=== PATIENT | male | born 1960 | race Caucasian/White ===

== ENCOUNTER 2016-11-03 22:46 | Emergency (ER) | payer BC ==
[2016-11-03 22:55] VITALS: TEMP 98.5
--- NOTE | 2016-11-03 23:27 | ED ---
General Adult HPI - General Chief complaint: Arrhythmia/Palpitations Stated complaint: palpitations; fluttering Time Seen by Provider: 11/03/16 23:11 Source: patient, RN notes reviewed, old records reviewed Mode of arrival: wheelchair Limitations: no limitations - History of Present Illness Initial comments: This is a 36-year-old male ER for reevaluation. This patient presents for evaluation of palpitations chest pain and diaphoresis. 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 Time patient was discharged home. Patient states symptoms have continued, [place] felt uneasy. Patient has history of asthma, hypertension and obesity. Nonsmoker. No prior heart attack. - Related Data Home Medications Medication Instructions Recorded Confirmed Albuterol Inhaler [Ventolin 1 - 2 puff INHALATION Q6HR PRN 02/20/15 02/20/15 Inhaler] Metoprolol Tartrate 1 tab PO DAILY 11/03/16 11/03/16 Allergies Allergy/AdvReac Type Severity Reaction Status Date / Time No Known Allergies Allergy Verified 08/23/14 18:07 Review of Systems ROS Statement: Those systems with pertinent positive or pertinent negative responses have been documented in the HPI. ROS Other: All systems not noted in ROS Statement are negative. Past Medical History Past Medical History: Asthma, Hypertension Additional Past Medical History / Comment(s): UMBILICAL HERNIA History of Any Multi-Drug Resistant Organisms: None Reported Past Surgical History: No Surgical Hx Reported Past Anesthesia/Blood Transfusion Reactions: No Reported Reaction Past Psychological History: No Psychological Hx Reported Smoking Status: Former smoker Past Alcohol Use History: None Reported Past Drug Use History: None Reported General Exam Limitations: no limitations General appearance: alert, in no apparent distress, anxious Head exam: Present: atraumatic, normocephalic, normal inspection Eye exam: Present: normal appearance, PERRL, EOMI. Absent: scleral icterus, conjunctival injection, periorbital swelling ENT exam: Present: normal exam, mucous membranes moist Neck exam: Present: normal inspection. Absent: tenderness, meningismus, lymphadenopathy Respiratory exam: Present: normal lung sounds bilaterally. Absent: respiratory distress, wheezes, rales, rhonchi, stridor Cardiovascular Exam: Present: normal rhythm, tachycardia, normal heart sounds. Absent: systolic murmur, diastolic murmur, rubs, gallop, clicks GI/Abdominal exam: Present: soft, normal bowel sounds. Absent: distended, tenderness, guarding, rebound, rigid Extremities exam: Present: normal inspection, full ROM, normal capillary refill. Absent: tenderness, pedal edema, joint swelling, calf tenderness Back exam: Present: normal inspection Neurological exam: Present: alert, oriented X3, CN II-XII intact Psychiatric exam: Present: normal affect, normal mood Skin exam: Present: warm, dry, intact, normal color. Absent: rash Course Vital Signs 11/03/16 11/04/16 22:52 03:36 Temperature 98.5 F Pulse Rate 107 H 88 Respiratory 20 18 Rate Blood Pressure 139/84 138/87 O2 Sat by Pulse 95 97 Oximetry - Reevaluation(s) Reevaluation #1: 11/04/16 00:03 Patient still palpitations heart racing slightly, feeling sweaty and shortness of breath EKG Findings - EKG Comments: EKG Findings:: EKG shows sinus tachycardia rate 13, HI 166, QRS or 2, QTc 442 Medical Decision Making - Medical Decision Making 50s RML ER for evaluation of heart palpitations and arrhythmia, tachycardia and chest pain. Patient be admitted under chest pain observation. - Lab Data Result diagrams: 11/03/16 23:30 11/03/16 23:30 Lab Results 11/03/16 11/03/16 11/03/16 Range/Units 23:30 23:30 23:30 WBC 7.7 (3.8-10.6) k/uL RBC 4.71 (4.30-5.90) m/uL Hgb 14.5 (13.0-17.5) gm/dL Hct 43.9 (39.0-53.0) % MCV 93.2 (80.0-100.0) fL MCH 30.8 (25.0-35.0) pg MCHC 33.1 (31.0-37.0) g/dL RDW 13.7 (11.5-15.5) % Plt Count 262 (150-450) k/uL Neutrophils % 62 % Lymphocytes % 24 % Monocytes % 8 % Eosinophils % 3 % Basophils % 1 % Neutrophils # 4.7 (1.3-7.7) k/uL Lymphocytes # 1.8 (1.0-4.8) k/uL Monocytes # 0.6 (0-1.0) k/uL Eosinophils # 0.2 (0-0.7) k/uL Basophils # 0.1 (0-0.2) k/uL PT (9.0-12.0) sec INR (<1.1) APTT (22.0-30.0) sec D-Dimer (<0.60) mg/L FEU Sodium 138 (137-145) mmol/L Potassium 4.1 (3.5-5.1) mmol/L Chloride 107 (98-107) mmol/L Carbon Dioxide 26 (22-30) mmol/L Anion Gap 5 mmol/L BUN 18 (9-20) mg/dL Creatinine 0.90 (0.66-1.25) mg/dL Est GFR (MDRD) Af Amer >60 (>60 ml/min/1.73 sqM) Est GFR (MDRD) Non-Af >60 (>60 ml/min/1.73 sqM) Glucose 129 H (74-99) mg/dL Calcium 8.9 (8.4-10.2) mg/dL Phosphorus 3.1 (2.5-4.5) mg/dL Magnesium 1.9 (1.6-2.3) mg/dL Total Bilirubin 0.5 (0.2-1.3) mg/dL AST 18 (17-59) U/L ALT 36 (21-72) U/L Alkaline Phosphatase 44 (38-126) U/L Total Creatine Kinase 146 (55-170) U/L CK-MB (CK-2) 1.2 (0.0-2.4) ng/mL CK-MB (CK-2) Rel Index 0.8 Troponin I <0.012 (0.000-0.034) ng/mL NT-Pro-B Natriuret Pep pg/mL Total Protein 6.5 (6.3-8.2) g/dL Albumin 3.8 (3.5-5.0) g/dL TSH 0.074 L (0.465-4.680) mIU/L Free T4 (0.78-2.19) ng/dL Free T3 pg/mL (2.8-5.3) pg/ml 03/11/17 03/11/17 03/12/17 Range/Units 23:30 23:30 03:55 WBC (3.8-10.6) k/uL RBC (4.30-5.90) m/uL Hgb (13.0-17.5) gm/dL Hct (39.0-53.0) % MCV (80.0-100.0) fL MCH (25.0-35.0) pg MCHC (31.0-37.0) g/dL RDW (11.5-15.5) % Plt Count (150-450) k/uL Neutrophils % % Lymphocytes % % Monocytes % % Eosinophils % % Basophils % % Neutrophils # (1.3-7.7) k/uL Lymphocytes # (1.0-4.8) k/uL Monocytes # (0-1.0) k/uL Eosinophils # (0-0.7) k/uL Basophils # (0-0.2) k/uL PT 9.8 (9.0-12.0) sec INR 1.0 (<1.1) APTT 22.8 (22.0-30.0) sec D-Dimer 0.54 (<0.60) mg/L FEU Sodium (137-145) mmol/L Potassium (3.5-5.1) mmol/L Chloride (98-107) mmol/L Carbon Dioxide (22-30) mmol/L Anion Gap mmol/L BUN (9-20) mg/dL Creatinine (0.66-1.25) mg/dL Est GFR (MDRD) Af Amer (>60 ml/min/1.73 sqM) Est GFR (MDRD) Non-Af (>60 ml/min/1.73 sqM) Glucose (74-99) mg/dL Calcium (8.4-10.2) mg/dL Phosphorus (2.5-4.5) mg/dL Magnesium (1.6-2.3) mg/dL Total Bilirubin (0.2-1.3) mg/dL AST (17-59) U/L ALT (21-72) U/L Alkaline Phosphatase (38-126) U/L Total Creatine Kinase (55-170) U/L CK-MB (CK-2) (0.0-2.4) ng/mL CK-MB (CK-2) Rel Index Troponin I (0.000-0.034) ng/mL NT-Pro-B Natriuret Pep 27 pg/mL Total Protein (6.3-8.2) g/dL Albumin (3.5-5.0) g/dL TSH (0.465-4.680) mIU/L Free T4 0.83 (0.78-2.19) ng/dL Free T3 pg/mL 4.1 (2.8-5.3) pg/ml 11/04/16 Range/Units 03:55 WBC (3.8-10.6) k/uL RBC (4.30-5.90) m/uL Hgb (13.0-17.5) gm/dL Hct (39.0-53.0) % MCV (80.0-100.0) fL MCH (25.0-35.0) pg MCHC (31.0-37.0) g/dL RDW (11.5-15.5) % Plt Count (150-450) k/uL Neutrophils % % Lymphocytes % % Monocytes % % Eosinophils % % Basophils % % Neutrophils # (1.3-7.7) k/uL Lymphocytes # (1.0-4.8) k/uL Monocytes # (0-1.0) k/uL Eosinophils # (0-0.7) k/uL Basophils # (0-0.2) k/uL PT (9.0-12.0) sec INR (<1.1) APTT (22.0-30.0) sec D-Dimer (<0.60) mg/L FEU Sodium (137-145) mmol/L Potassium (3.5-5.1) mmol/L Chloride (98-107) mmol/L Carbon Dioxide (22-30) mmol/L Anion Gap mmol/L BUN (9-20) mg/dL Creatinine (0.66-1.25) mg/dL Est GFR (MDRD) Af Amer (>60 ml/min/1.73 sqM) Est GFR (MDRD) Non-Af (>60 ml/min/1.73 sqM) Glucose (74-99) mg/dL Calcium (8.4-10.2) mg/dL Phosphorus (2.5-4.5) mg/dL Magnesium (1.6-2.3) mg/dL Total Bilirubin (0.2-1.3) mg/dL AST (17-59) U/L ALT (21-72) U/L Alkaline Phosphatase (38-126) U/L Total Creatine Kinase (55-170) U/L CK-MB (CK-2) (0.0-2.4) ng/mL CK-MB (CK-2) Rel Index Troponin I <0.012 (0.000-0.034) ng/mL NT-Pro-B Natriuret Pep pg/mL Total Protein (6.3-8.2) g/dL Albumin (3.5-5.0) g/dL TSH (0.465-4.680) mIU/L Free T4 (0.78-2.19) ng/dL Free T3 pg/mL (2.8-5.3) pg/ml - Radiology Data Radiology results: report reviewed (Chest X-rays negative for acute disease), image reviewed Disposition Clinical Impression: Tachycardia, Chest pain Disposition: HOME SELF-CARE Condition: Fair Instructions: Palpitations (ED) Referrals: Rodney Ferreira MD [Primary Care Provider] - 1-2 days
[2016-11-03 23:46] LABS: Basophils # (A) 0.1 k/uL (0-0.2); Basophils % (A) 1 %; CH 31.6; Eosinophils # (A) 0.2 k/uL (0-0.7); Eosinophils % (A) 3 %; HCT 43.9 % (39.0-53.0); HDW 2.53; HGB 14.5 gm/dL (13.0-17.5); Luc # (Auto) 0.24; Luc % (Auto) 3; Lymphocytes # (A) 1.8 k/uL (1.0-4.8); Lymphocytes % (A) 24 %; MCH 30.8 pg (25.0-35.0); MCHC 33.1 g/dL (31.0-37.0); MCV 93.2 fL (80.0-100.0); Monocytes # (A) 0.6 k/uL (0-1.0); Monocytes % (A) 8 %; Neutrophils # (A) 4.7 k/uL (1.3-7.7); Neutrophils % (A) 62 %; RBC 4.71 m/uL (4.30-5.90); RDW 13.7 % (11.5-15.5); WBC 7.7 k/uL (3.8-10.6); WBC (Perox) 7.83
[2016-11-03 23:57] LABS: ALT 36 U/L (21-72); AST 18 U/L (17-59); Alkaline Phosphatase 44 U/L (38-126); Anion Gap 5 mmol/L; Blood Urea Nitrogen 18 mg/dL (9-20); Calcium 8.9 mg/dL (8.4-10.2); Carbon Dioxide 26 mmol/L (22-30); Chloride 107 mmol/L (98-107); Glucose 129 mg/dL (74-99); Magnesium 1.9 mg/dL (1.6-2.3); Non-African American GFR(MDRD) >60 (>60 ml/min/1.73 sqM); Phosphorous 3.1 mg/dL (2.5-4.5); Potassium 4.1 mmol/L (3.5-5.1); Sodium 138 mmol/L (137-145); Total Bilirubin 0.5 mg/dL (0.2-1.3); Total Protein 6.5 g/dL (6.3-8.2)
[2016-11-04 00:08] LABS: Creatine Kinase 146 U/L (55-170)
[2016-11-04 00:10] LABS: Partial Thromboplastin Time 22.8 sec (22.0-30.0); Prothrombin Time 9.8 sec (9.0-12.0)
--- NOTE | 2016-11-04 00:10 | XR ---
Exam: FILM CXR 11/03/16 at 2343 hrs. Chest PA and lateral views INDICATION: Weakness COMPARISON: Chest radiograph exam 02/20/15 FINDINGS: There is mild low lung volumes. The cardiomediastinal silhouette is within normal limits. Lungs are clear. No pleural effusions. Bony elements are within normal limits for age. No acute osseous abnormality. IMPRESSION: No acute cardiopulmonary disease. Lungs are clear. Heart size normal.
[2016-11-04] MEDS ORDERED: RX INFO: IV CONTRAST WAS GIVEN 1 EACH MISC MISCELLANE PRN (00:13)
[2016-11-04 00:21] LABS: Creatine Kinase MB 1.2 ng/mL (0.0-2.4); Troponin I <0.012 ng/mL (0.000-0.034)
--- NOTE | 2016-11-04 03:06 | CT ---
Exam: CTA CHEST INDICATION: Pain TECHNIQUE: Multiple, contiguous 2 mm axial cuts of the chest are obtained following the administration of IV contrast. High resolution axial image as well as, sagittal and coronal reformatted images are available. COMPARISON: Chest radiograph 11/03/16 FINDINGS: The study is limited due to suboptimal opacification of the pulmonary arteries. More dense contrast opacification of the pulmonary veins and thoracic aorta is noted. Evaluation of mid and distal segmental and subsegmental pulmonary arteries is markedly limited essentially nondiagnostic for these vessels. No central or proximal segmental pulmonary embolism identified. Thoracic aorta normal caliber without dissection. In the right lower lobe anterior laterally there is a 8mm noncalcified nodule. Remaining lung babb are clear. No acute infiltrate. No effusion or pneumothorax. No adenopathy. Heart size normal. No pericardial effusion. Mild endplate degenerative osteophyte formation of the mid to lower thoracic spine. No acute osseous abnormality. Adrenal glands are unremarkable. Visualized upper abdominal structures are unremarkable. IMPRESSION: 1. The study is limited due to suboptimal opacification of the pulmonary arteries. Evaluation of mid and distal segmental and subsegmental pulmonary arteries is markedly limited essentially nondiagnostic for these vessels. 2. No central or proximal segmental pulmonary embolism identified. 3. 8mm noncalcified nodule right lower lobe. Follow-up examination in 3 months suggested. 4. Lungs are clear of infiltrate. No effusion or pneumothorax.
[2016-11-04 04:39] VITALS: RESP 18
[2016-11-04 06:01] VITALS: BP 154/99; PULSE 75
== END 2016-11-04 06:00 | disposition home or self-care (01) ==
LOC: EC 22:46 → SUPCPDRO 22:46 → EC 11-04 06:00
DX: R00.2 Palpitations (principal); R00.0 Tachycardia, unspecified; R07.9 Chest pain, unspecified; I10 Essential (primary) hypertension; Z87.891 Personal history of nicotine dependence; Z79.899 Other long term (current) drug therapy
CPT/HCPCS: 36415; 71020; 71275; 80053; 82550; 82553; 83735; 83880; 84100; 84439; 84443; 84481; 84484; 85025; 85379; 85610; 85730; 93005; 99285

== ENCOUNTER 2018-05-18 12:18 | Observation (INO) | payer BC ==
[2018-05-18] MEDS ORDERED: ALBUTEROL NEBULIZED 2.5 MG/3 ML INHALATION STA (12:34)
[2018-05-18] MEDS ORDERED: IPRATROPIUM 0.5 MG/2.5 ML NEBU INHALATION STA (12:34)
[2018-05-18] MEDS ORDERED: methylPREDNISolone SOD SUCCI 125 MG/2 ML VIAL IV STA (12:34)
--- NOTE | 2018-05-18 12:37 | ED ---
General Adult HPI - General Chief complaint: Shortness of Breath Stated complaint: ALEXUS Time Seen by Provider: 05/18/18 12:26 Source: patient, RN notes reviewed, old records reviewed Mode of arrival: wheelchair Limitations: no limitations - History of Present Illness Initial comments: 57-year-old male history of asthma presenting with cough and dyspnea. Patient' s symptoms have been present for approximately one week. He was admitted earlier this week at an outside hospital for asthma exacerbation. Symptoms have failed to improve. Denies fever or chills. Denies central chest pain. Denies lower extremity pain or swelling. Denies abdominal pain nausea vomiting. Symptoms are consistent with previous asthma exacerbation. No formal diagnosis COPD, he did smoke for a period of time however he has not smoking many years. - Related Data Home Medications Medication Instructions Recorded Confirmed Albuterol Sulfate [Proair Hfa] 1 - 2 puff INHALATION RT-Q6H PRN 05/18/18 Doxycycline Monohydrate [Monodox] 100 mg PO BID 05/18/18 05/18/18 Lisinopril-Hctz 20-25 mg 1 tab PO DAILY 05/18/18 05/18/18 [Zestoretic 20-25] Loratadine [Claritin] 10 mg PO DAILY 05/18/18 05/18/18 Montelukast Sodium [Singulair] 10 mg PO DAILY 05/18/18 05/18/18 guaiFENesin-DM 600/30MG [Mucinex 1 tab PO BID 05/18/18 05/18/18 Dm] predniSONE 60 mg PO DAILY 05/18/18 05/18/18 Allergies Allergy/AdvReac Type Severity Reaction Status Date / Time No Known Allergies Allergy Verified 05/18/18 14:26 Review of Systems ROS Statement: Those systems with pertinent positive or pertinent negative responses have been documented in the HPI. ROS Other: All systems not noted in ROS Statement are negative. Past Medical History Past Medical History: Asthma, Hypertension Additional Past Medical History / Comment(s): UMBILICAL HERNIA History of Any Multi-Drug Resistant Organisms: None Reported Past Surgical History: No Surgical Hx Reported Past Anesthesia/Blood Transfusion Reactions: No Reported Reaction Past Psychological History: No Psychological Hx Reported Smoking Status: Former smoker Past Alcohol Use History: None Reported Past Drug Use History: None Reported General Exam Limitations: no limitations General appearance: alert, in no apparent distress Head exam: Present: atraumatic, normocephalic Eye exam: Present: normal appearance, PERRL ENT exam: Present: normal exam Neck exam: Present: normal inspection. Absent: tenderness, meningismus Respiratory exam: Present: respiratory distress, wheezes (mild), decreased breath sounds, prolonged expiratory Cardiovascular Exam: Present: regular rate, normal rhythm GI/Abdominal exam: Present: soft. Absent: distended, tenderness, guarding Extremities exam: Present: normal inspection, normal capillary refill. Absent: pedal edema, calf tenderness Neurological exam: Present: alert, oriented X3, CN II-XII intact. Absent: motor sensory deficit Psychiatric exam: Present: normal affect, normal mood Skin exam: Present: warm, dry, intact. Absent: cyanosis, diaphoretic Course Vital Signs 05/18/18 05/18/18 05/18/18 12:22 13:02 13:26 Temperature 98.5 F Pulse Rate 94 92 98 Respiratory 18 Rate Blood Pressure 155/94 O2 Sat by Pulse 95 Oximetry 05/18/18 13:42 Temperature 98.6 F Pulse Rate 95 Respiratory 20 Rate Blood Pressure 142/81 O2 Sat by Pulse 97 Oximetry EKG Findings - EKG Comments: EKG Findings:: EKG: Normal sinus rhythm, rate of 91, RI interval 160, QRS duration 108, QTC 374, QTC [address] segment changes Medical Decision Making - Medical Decision Making 57-year-old male history of asthma presenting with cough and dyspnea. Patient' s has moderate respiratory distress on initial evaluation, he has end expiratory wheezing throughout bilateral lung babb. Given albuterol, Atrovent , and steroids in the emergency department. Chest x-ray obtained negative for focal pneumonia, normal CBC and CMP, troponin and BNP are negative. On reevaluation his breathing is improved however he will has persistent conversational dyspnea and wheezing throughout. He will be kept in observation for continued IV steroids, albuterol and Atrovent, and pulmonology consultation. - Lab Data Result diagrams: 05/18/18 12:50 05/18/18 12:50 Lab Results 05/18/18 05/18/18 05/18/18 Range/Units 12:50 12:50 12:50 WBC 11.6 H (3.8-10.6) k/uL RBC 4.90 (4.30-5.90) m/uL Hgb 15.0 (13.0-17.5) gm/dL Hct 46.6 (39.0-53.0) % MCV 95.1 (80.0-100.0) fL MCH 30.5 (25.0-35.0) pg MCHC 32.1 (31.0-37.0) g/dL RDW 13.1 (11.5-15.5) % Plt Count 288 (150-450) k/uL Neutrophils % 71 % Lymphocytes % 21 % Monocytes % 5 % Eosinophils % 2 % Basophils % 0 % Neutrophils # 8.2 H (1.3-7.7) k/uL Lymphocytes # 2.4 (1.0-4.8) k/uL Monocytes # 0.6 (0-1.0) k/uL Eosinophils # 0.3 (0-0.7) k/uL Basophils # 0.0 (0-0.2) k/uL PT (9.0-12.0) sec INR (<1.2) APTT (22.0-30.0) sec Sodium 138 (137-145) mmol/L Potassium 3.7 (3.5-5.1) mmol/L Chloride 104 (98-107) mmol/L Carbon Dioxide 26 (22-30) mmol/L Anion Gap 8 mmol/L BUN 20 (9-20) mg/dL Creatinine 0.83 (0.66-1.25) mg/dL Est GFR (CKD-EPI)AfAm >90 (>60 ml/min/1.73 sqM) Est GFR (CKD-EPI)NonAf >90 (>60 ml/min/1.73 sqM) Glucose 119 H (74-99) mg/dL Calcium 8.8 (8.4-10.2) mg/dL Magnesium 2.0 (1.6-2.3) mg/dL Total Bilirubin 0.6 (0.2-1.3) mg/dL AST 19 (17-59) U/L ALT 20 L (21-72) U/L Alkaline Phosphatase 50 (38-126) U/L Total Creatine Kinase 83 (55-170) U/L CK-MB (CK-2) 1.5 (0.0-2.4) ng/mL CK-MB (CK-2) Rel Index 1.8 Troponin I <0.012 (0.000-0.034) ng/mL NT-Pro-B Natriuret Pep pg/mL Total Protein 6.2 L (6.3-8.2) g/dL Albumin 3.5 (3.5-5.0) g/dL 05/18/18 05/18/18 Range/Units 12:50 12:50 WBC (3.8-10.6) k/uL RBC (4.30-5.90) m/uL Hgb (13.0-17.5) gm/dL Hct (39.0-53.0) % MCV (80.0-100.0) fL MCH (25.0-35.0) pg MCHC (31.0-37.0) g/dL RDW (11.5-15.5) % Plt Count (150-450) k/uL Neutrophils % % Lymphocytes % % Monocytes % % Eosinophils % % Basophils % % Neutrophils # (1.3-7.7) k/uL Lymphocytes # (1.0-4.8) k/uL Monocytes # (0-1.0) k/uL Eosinophils # (0-0.7) k/uL Basophils # (0-0.2) k/uL PT 9.7 (9.0-12.0) sec INR 1.0 (<1.2) APTT 21.0 L (22.0-30.0) sec Sodium (137-145) mmol/L Potassium (3.5-5.1) mmol/L Chloride (98-107) mmol/L Carbon Dioxide (22-30) mmol/L Anion Gap mmol/L BUN (9-20) mg/dL Creatinine (0.66-1.25) mg/dL Est GFR (CKD-EPI)AfAm (>60 ml/min/1.73 sqM) Est GFR (CKD-EPI)NonAf (>60 ml/min/1.73 sqM) Glucose (74-99) mg/dL Calcium (8.4-10.2) mg/dL Magnesium (1.6-2.3) mg/dL Total Bilirubin (0.2-1.3) mg/dL AST (17-59) U/L ALT (21-72) U/L Alkaline Phosphatase (38-126) U/L Total Creatine Kinase (55-170) U/L CK-MB (CK-2) (0.0-2.4) ng/mL CK-MB (CK-2) Rel Index Troponin I (0.000-0.034) ng/mL NT-Pro-B Natriuret Pep 179 pg/mL Total Protein (6.3-8.2) g/dL Albumin (3.5-5.0) g/dL Disposition Clinical Impression: Asthma with exacerbation Disposition: ADMITTED IP TO THIS [facility] Condition: Stable Is patient prescribed a controlled substance at d/c from ED?: No Referrals: Rodney Ferreira MD [Primary Care Provider] - 1-2 days Decision to Admit Reason: Admit from EC Decision Date: 05/18/18 Decision Time: 14:45
[2018-05-18 13:03] LABS: Basophils % (A) 0 %; Eosinophils # (A) 0.3 k/uL (0-0.7); Eosinophils % (A) 2 %; HCT 46.6 % (39.0-53.0); Lymphocytes # (A) 2.4 k/uL (1.0-4.8); Lymphocytes % (A) 21 %; MCH 30.5 pg (25.0-35.0); MCHC 32.1 g/dL (31.0-37.0); MCV 95.1 fL (80.0-100.0); Mean Platelet Volume 6.1; Monocytes # (A) 0.6 k/uL (0-1.0); Monocytes % (A) 5 %; Neutrophils # (A) 8.2 k/uL (1.3-7.7); Neutrophils % (A) 71 %; Platelet Count 288 k/uL (150-450); RDW 13.1 % (11.5-15.5); WBC 11.6 k/uL (3.8-10.6)
[2018-05-18 13:12] LABS: ALT 20 U/L (21-72); AST 19 U/L (17-59); Albumin 3.5 g/dL (3.5-5.0); Alkaline Phosphatase 50 U/L (38-126); Anion Gap 8 mmol/L; Blood Urea Nitrogen 20 mg/dL (9-20); Calcium 8.8 mg/dL (8.4-10.2); Carbon Dioxide 26 mmol/L (22-30); Chloride 104 mmol/L (98-107); Glucose 119 mg/dL (74-99); Potassium 3.7 mmol/L (3.5-5.1); Sodium 138 mmol/L (137-145); Total Bilirubin 0.6 mg/dL (0.2-1.3); Total Protein 6.2 g/dL (6.3-8.2)
[2018-05-18 13:18] LABS: Prothrombin Time 9.7 sec (9.0-12.0)
[2018-05-18 13:23] LABS: Creatine Kinase 83 U/L (55-170)
[2018-05-18 13:36] LABS: Creatine Kinase MB 1.5 ng/mL (0.0-2.4); Troponin I <0.012 ng/mL (0.000-0.034)
--- NOTE | 2018-05-18 14:02 | XR ---
EXAMINATION TYPE: XR chest 2V DATE OF EXAM: 05/18/2018 HISTORY: difficulty breathing. REFERENCE: Previous study dated 11/03/2016. FINDINGS: Lung volumes are prominent. The lungs are clear. Pleural spaces are clear. The heart is not enlarged. IMPRESSION: CORRELATE FOR COPD.
[2018-05-18] MEDS: IPRATROPIUM-ALBUTEROL 3 ML NEB INHALATION SCH ×2 (15:27→19:51)
[2018-05-18 15:56] VITALS: BMI 47.0
[2018-05-18 17:00] LABS: Glucose,Whole Blood 194 mg/dL (75-99)
[2018-05-18] MEDS: INSULIN ASPART 100 UNIT/ML 1 ML 10 ML VIAL SQ SCH ×2 (17:29→20:28)
[2018-05-18] MEDS: methylPREDNISolone SOD SUCCI 125 MG/2 ML VIAL IV SCH ×2 (17:30→20:28)
[2018-05-18 20:22] LABS: Glucose,Whole Blood 186 mg/dL (75-99)
--- NOTE | 2018-05-18 23:21 | CONS ---
CONSULTATION Joni Brown is a 57-year-old male with a history of severe asthma, who presented to [facility] with increasing shortness of breath. He had recently been admitted to [facility] and discharged yesterday. He went home and started to become more short of breath. He was seen in the ER at [facility] and improved after conservative care. Troponins were done which were negative at the time, and his breathing improved. He subsequently started to worsen after he was discharged and came in to [facility]. He does have a small dog at home that apparently sheds small balls of fur and has intermittently had a dog with him for the last 8 years. He denies any fever, chills or rigors. He has no chest pain at this time. PAST MEDICAL HISTORY: Positive for severe asthma, history of possible COPD, history of obesity, umbilical hernia. SOCIAL HISTORY: Patient has a dog at home that does shed. He works in the [employer] industry and is a former smoker. FAMILY HISTORY: Noncontributory. REVIEW OF SYMPTOMS: Review of systems as per history of present illness and past medical history. PAST HISTORY MEDICATIONS: Prior to admission for prednisone, guaifenesin with dextromethorphan, montelukast, Claritin, Zestoretic, doxycycline, albuterol HFA. PHYSICAL EXAMINATION: Respiratory rate is 22, pulse rate of 117, O2 sat on 2 L by nasal cannula is 92%. HEENT: Reveals pupils are equal. No jugular venous distention. Chest with decreased breath sounds. Prolonged expiration. There is expiratory wheeze on forced expiration. Cardiovascular system reveals an S1, S2. ABDOMEN: Soft. There is no pedal edema. LABS: Reveal a white count of 11.6, hemoglobin of 15, sodium 138, potassium 3.7, chloride 104, bicarb 26, BUN 20, creatinine 0.83, glucose of 194. Chest x-ray shows no clear infiltrate. IMPRESSION: At this time: 1. Severe asthma with acute exacerbation. 2. Chronic obstructive pulmonary disease. 3. Elevated blood sugars in part due to steroids, possible diabetes mellitus. 4. Obesity. 5. Possible obstructive sleep apnea. At this point in time, from a pulmonary standpoint, keep him on GI and DVT prophylaxis. Keep him on montelukast, start inhaled steroids to his regimen. Keep him on IV steroids. Increase his activity level. Continue bronchodilators. Depending on how he does, we shall make further changes to his care. Hopefully, he will only have a short stay at the hospital and may have worsened because of exposure to his dog. He was counseled regarding his condition and this approach and has a fair understanding of our recommendations. I would like to thank you for allowing me to participate in his care. KRISTINE / BREONNA: [id number] /
[2018-05-18] MEDS: HEPARIN SODIUM,PORCINE 5,000 UNIT/ML 1 ML VIAL SQ SCH (23:59)
[2018-05-18] MEDS: FAMOTIDINE 20 MG TAB PO SCH (23:59)
[2018-05-19] MEDS ORDERED: LISINOPRIL-HCTZ 20-25 MG 1 EACH TAB PO SCH ×4 (00:09→21:00)
[2018-05-19] MEDS: LORATADINE 10 MG TAB PO SCH ×2 (00:35→20:04)
[2018-05-19] MEDS: MONTELUKAST 10 MG TAB PO SCH ×2 (00:35→20:04)
[2018-05-19] MEDS: methylPREDNISolone SOD SUCCI 125 MG/2 ML VIAL IV SCH (06:11)
[2018-05-19 07:33] LABS: Glucose,Whole Blood 155 mg/dL (75-99)
[2018-05-19] MEDS: INSULIN ASPART 100 UNIT/ML 1 ML 10 ML VIAL SQ SCH ×4 (07:36→22:06)
[2018-05-19] MEDS: FAMOTIDINE 20 MG TAB PO SCH ×2 (07:36→20:03)
[2018-05-19] MEDS: HEPARIN SODIUM,PORCINE 5,000 UNIT/ML 1 ML VIAL SQ SCH ×2 (07:36→20:03)
[2018-05-19] MEDS: IPRATROPIUM-ALBUTEROL 3 ML NEB INHALATION SCH ×4 (08:50→20:29)
[2018-05-19] MEDS: BUDESONIDE 0.5 MG/2 ML NEBU INHALATION SCH ×2 (08:50→20:29)
[2018-05-19] MEDS ORDERED: MONTELUKAST 10 MG TAB PO SCH (09:00)
[2018-05-19] MEDS ORDERED: LORATADINE 10 MG TAB PO SCH (09:00)
--- NOTE | 2018-05-19 10:43 | P.PN ---
<Donald Ferrerley E - Last Filed: 05/19/18 10:34> Subjective Progress Note Date: 05/19/18 HPI: Joni Brown is a 57-year-old male with a history of severe asthma, who presented to the [facility] with increasing shortness of breath. He had recently been admitted to [facility] and discharged yesterday. He will home and started to become more short of breath. He was seen in the ER at [facility] in improved after conservative care. Troponins were done which were negative at that time and his breathing improved. He subsequently started to worsen after discharge and he can to [facility]. He does have a small dog at home that apparently showed small positive for and has intermittently had a dog with him for the last 8 years. He denies any fever or chills or rigors. He has no chest pain at this time. Interval history: 05/19/2018patient is being seen examined and evaluated today on rounds. He is resting up in bed on 2 L of supplemental oxygen via nasal cannula. The patient states that he did have some changes in his home environment the day before he went to [facility] for his first admission. The patient states he had some use carpet installed into his house prior to starting his exacerbating symptoms. He thinks when he went home after being discharged the first time that having the second exposure to the use carpet that was installed is what made him go back into exacerbation and come back to the hospital. The patient states he is having that carpet removed out of his house today. He has been responding well to the steroids. He feels his breathing is improved today. Continues with his breathing treatments. He is afebrile, denies any further complaints. Objective - Vital Signs Vital signs: Vital Signs Temp 99.0 F 05/19/18 07:00 Pulse 100 05/19/18 09:04 Resp 22 05/19/18 07:00 BP 152/91 05/19/18 07:00 Pulse Ox 96 05/19/18 07:00 Intake & Output 05/18/18 05/19/18 05/19/18 18:59 06:59 18:59 Weight 144.5 kg Other: # Voids 1 1 - Exam GENERAL EXAM: Alert, active, comfortable in no apparent distress. Morbidly obese HEAD: Normocephalic. EYES: Normal reaction of pupils, equal size. NOSE: Clear with pink turbinates. THROAT: No erythema or exudates. NECK: No masses, no JVD. CHEST: No chest wall deformity. LUNGS: Equal air entry with some decreased breath sounds at the bases. He does have prolonged expiration and wheezes on forced expiration. CVS: S1 and S2 normal with no audible mumurs, regular rhythm. ABDOMEN: No hepatosplenomegaly, normal bowel sounds, no guarding or rigidity. EXTREMITIES: No edema noted, pedal pulses palpable. CENTRAL NERVOUS SYSTEM: No focal deficits, tone is normal in all 4 extremities. - Labs CBC & Chem 7: 05/18/18 12:50 05/18/18 12:50 Labs: Abnormal Lab Results - Last 24 Hours (Table) 05/18/18 05/18/18 05/18/18 Range/Units 12:50 12:50 12:50 WBC 11.6 H (3.8-10.6) k/uL Neutrophils # 8.2 H (1.3-7.7) k/uL APTT 21.0 L (22.0-30.0) sec Glucose 119 H (74-99) mg/dL POC Glucose (mg/dL) (75-99) mg/dL ALT 20 L (21-72) U/L Total Protein 6.2 L (6.3-8.2) g/dL 05/18/18 05/18/18 05/19/18 Range/Units 16:58 20:20 07:28 WBC (3.8-10.6) k/uL Neutrophils # (1.3-7.7) k/uL APTT (22.0-30.0) sec Glucose (74-99) mg/dL POC Glucose (mg/dL) 194 H 186 H 155 H (75-99) mg/dL ALT (21-72) U/L Total Protein (6.3-8.2) g/dL Assessment and Plan Assessment: Assessment Acute exacerbation of chronic persistent severe asthma COPD Hyperglycemia related to steroid use and no possible diabetes mellitus Morbid obesity Possible obstructive sleep apnea Plan Medications have been reviewed and will be continued as ordered. Continue with steroid taper Continue with pulmonary hygiene, coughing and deep breathing exercises, and supportive care. Supplemental oxygen to maintain oxygen saturations of 92% or better. Continue nebulizer treatments. GI and DVT prophylaxis. Increase activity as tolerated Patient will be having the used carpet removed from his house as it is a new exposure and he feels this is causing his recent exacerbations Patient has been advised on multiple times to obtain an outpatient PFT as well as an outpatient sleep study. This patient has a poor follow-up history in the outpatient setting when he comes to pulmonary, he is known to not show up to his appointments post hospitalizations. We will continue to monitor labs/results and adjust treatment as necessary. Further recommendations pending. I performed an examination of the patient and discussed their management with the nurse practitioner. I have reviewed the nurse practitioner's note and agree with the documented findings and plan of care. <Roseline Lee - Last Filed: 05/19/18 14:04> Objective - Vital Signs Vital signs: Vital Signs Temp 99.0 F 05/19/18 07:00 Pulse 100 05/19/18 09:04 Resp 22 05/19/18 07:00 BP 152/91 05/19/18 07:00 Pulse Ox 96 05/19/18 11:35 Intake & Output 05/18/18 05/19/18 05/19/18 18:59 06:59 18:59 Weight 144.5 kg Other: # Voids 1 1 - Labs CBC & Chem 7: 05/18/18 12:50 05/18/18 12:50 Labs: Abnormal Lab Results - Last 24 Hours (Table) 05/18/18 05/18/18 05/18/18 Range/Units 12:50 16:58 20:20 POC Glucose (mg/dL) 194 H 186 H (75-99) mg/dL Hemoglobin A1c 6.8 H (4.0-6.0) % 05/19/18 05/19/18 Range/Units 07:28 12:29 POC Glucose (mg/dL) 155 H 135 H (75-99) mg/dL Hemoglobin A1c (4.0-6.0) % Assessment and Plan Assessment: Patient seen and examined. Con tinue Pulmicort, Duonebs, steroid taper, singulair, claritin. Allergen avoidance. Outpatient PFT and PSG. ~Roseline Lee DO
[2018-05-19 11:04] LABS: Hemoglobin A1C 6.8 % (4.0-6.0)
--- NOTE | 2018-05-19 12:21 | P.HPIM ---
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 She has underlying history of diabetes mellitus type 2, moderate persistent asthma, was recently discharged from [facility] after a bout of asthma exacerbation. He was doing well Saturday, discharged on 922 from [facility]. He can planed of having shortness of breath after they have staying at home, apparently there is a new carpet that the son had brought in from a car dealership show this Saturday thereafter patient has increasing shortness of breath despite nebulizer use of albuterol and steroid inhaler. He has a dog for which she had for the past 8 years, no new farm exposure. He was also evaluated with negative troponins and normal EKG during his last admission at [facility]. Patient is on prednisone on discharge, Singulair nebulizer albuterol and steroid inhalers, Doxycycline. Patient denies any new leg swelling, no hemoptysis no fever no chest pain no pleurisy.. Sleep study is anticipated to be done as an outpatient, still needs to be scheduled. Emergency room EKG shows normal sinus rhythm and normal ST-T wave changes heart rate of 91 sinus chest x-ray shows prominent lung volume, no infiltrate, no pleural effusion no cardiomegaly correlated for COPD. Patient was admitted for asthma exacerbation triggered by carpet exposure, consult to Dr. Bustillos/Rikki Griffith pulmonary Review of Systems Constitutional: Reports as per HPI, Denies anorexia, Denies chills, Denies chronic headaches, Denies chronic pain, Denies daytime sleepiness, Denies fatigue, Denies fever, Denies lethargy, Denies malaise, Denies night sweats, Denies poor appetite, Denies sweats, Denies weakness, Denies weight gain, Denies weight loss Ears, nose, mouth and throat: Reports as per HPI, Denies ant. neck pain, Denies bleeding gums, Denies dental pain, Denies dysphagia, Denies epistaxis, Denies headache, Denies hoarseness, Denies mouth pain, Denies nasal congestion, Denies nasal discharge, Denies neck fullness/pressure, Denies neck lump, Denies nose pain, Denies odynophagia, Denies post-nasal drip, Denies sinus pain, Denies sinus pressure, Denies swelling in mouth, Denies swelling in throat, Denies sore throat, Denies vertigo, Denies voice changes Cardiovascular: Reports as per HPI, Reports dyspnea on exertion, Reports shortness of breath, Denies chest pain, Denies claudication, Denies decreased exercise tolerance, Denies edema, Denies high blood pressure, Denies irregular heart beat, Denies leg edema, Denies lightheadedness, Denies orthopnea, Denies palpitations, Denies paroxysmal nocturnal dyspnea, Denies phlebitis, Denies rapid heart beat, Denies syncope Respiratory: Reports as per HPI, Reports cough, Reports dyspnea Gastrointestinal: Reports as per HPI, Denies abdominal pain, Denies belching, Denies bloating, Denies BRBPR, Denies change in bowel habits, Denies coffee ground emesis, Denies constipation, Denies diarrhea, Denies dyspepsia, Denies early satiety, Denies excessive gas, Denies heartburn, Denies hematemesis, Denies hematochezia, Denies indigestion, Denies jaundice, Denies lactose intolerance, Denies loss of appetite, Denies melena, Denies nausea, Denies vomiting Genitourinary: Reports as per HPI Musculoskeletal: Reports as per HPI Integumentary: Reports as per HPI, Denies acne, Denies boils, Denies brittle nails, Denies change in hair/nails, Denies color changes, Denies darkening of skin, Denies depigmentation, Denies dryness, Denies foot/leg ulcers, Denies growths, Denies hirsutism, Denies lesions, Denies onychomycosis, Denies pruritus , Denies rash, Denies sores, Denies striae, Denies unusual bruising, Denies wounds Neurological: Reports as per HPI, Denies aphasia, Denies ataxia, Denies balance difficulties, Denies burning pain, Denies change in mentation, Denies change in smell/taste, Denies change in speech, Denies confusion, Denies convulsions, Denies double vision, Denies gait dysfunction, Denies head injury, Denies headaches, Denies hearing difficulties, Denies lack of coordination, Denies loss of vision, Denies memory loss, Denies migraines, Denies motor disturbance, Denies numbness, Denies paralysis, Denies paresthesias, Denies seizures, Denies sensory deficit, Denies spasticity, Denies syncope, Denies tic, Denies tingling , Denies transient paralysis, Denies tremors, Denies vertigo, Denies weakness, Denies visual changes Psychiatric: Reports as per HPI, Reports sleep disturbances, Denies anhedonia, Denies anxiety, Denies anxiety attacks, Denies change in appetite, Denies change in libido, Denies change in sleep habits, Denies confusion, Denies depression, Denies difficulty concentrating, Denies disorientation, Denies hallucinations, Denies hopelessness, Denies hypersomnia, Denies insomnia, Denies irritability, Denies memory loss, Denies mood swings, Denies paranoia, Denies sadness/tearfulness, Denies suicidal ideation Endocrine: Reports as per HPI, Denies cold intolerance, Denies deepening of the voice, Denies excessive sweating, Denies excessive thirst, Denies fatigue, Denies flushing, Denies heat intolerance, Denies high blood sugars, Denies increase in ring/shoe/hat size, Denies low blood sugars, Denies nocturia, Denies palpitations, Denies polydipsia, Denies polyphagia, Denies polyuria, Denies proptosis, Denies recent glucocorticoid use, Denies thyroid mass, Denies weight change Hematologic/Lymphatic: Reports as per HPI, Denies easy bleeding, Denies easy bruising, Denies lymphadenopathy, Denies lymphedema, Denies thrombophilia Allergic/Immunologic: Reports as per HPI, Denies allergic rhinitis, Denies anaphylaxis, Denies angioedema, Denies gluten intolerance, Denies persistent infections, Denies seasonal allergies, Denies urticaria, Denies wheezing Past Medical History Past Medical History: Asthma, Diabetes Mellitus, GERD/Reflux, Hypertension, Osteoarthritis (OA), Sleep Apnea/CPAP/BIPAP (Has polycythemia, still to be tested for sleep apnea) Additional Past Medical History / Comment(s): UMBILICAL HERNIA History of Any Multi-Drug Resistant Organisms: None Reported Additional Past Surgical History / Comment(s): Umbilical hernia repair, colonoscopy, skin biopsy Past Anesthesia/Blood Transfusion Reactions: No Reported Reaction Past Psychological History: No Psychological Hx Reported Smoking Status: Former smoker Past Alcohol Use History: None Reported Past Drug Use History: None Reported Additional Drug Use History / Comment(s): Patient quit smoking about 38 years ago, after 4 years of use, no alcohol intake, has nebulizer no oxygen no CPAP machine, 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 - Past Family History Mother History Unknown: Yes (Mom in her 60s from accident with history of ovary cancer) Father History Unknown: Yes (Disease in his 30s from accident) Brother(s) Family Medical History: No Reported History Sister(s) Family Medical History: No Reported History Daughter(s) Family Medical History: Unable to Obtain (No daughters no sons) Medications and Allergies Home Medications Medication Instructions Recorded Confirmed Type Albuterol Sulfate [Proair Hfa] 1 - 2 puff INHALATION RT-Q6H PRN 05/18/18 History Doxycycline Monohydrate [Monodox] 100 mg PO BID 05/18/18 05/18/18 History Lisinopril-Hctz 20-25 mg 1 tab PO DAILY 05/18/18 05/18/18 History [Zestoretic 20-25] Loratadine [Claritin] 10 mg PO DAILY 05/18/18 05/18/18 History Montelukast Sodium [Singulair] 10 mg PO DAILY 05/18/18 05/18/18 History guaiFENesin-DM 600/30MG [Mucinex 1 tab PO BID 05/18/18 05/18/18 History Dm] predniSONE 60 mg PO DAILY 05/18/18 05/18/18 History Budesonide-Formot 160-4.5 Mcg 2 puff INHALATION BID #1 inhaler 05/20/18 Rx [Symbicort 160-4.5 Mcg Inhaler] Lisinopril [Prinivil] 20 mg PO HS #30 tablet 05/21/18 Rx Allergies Allergy/AdvReac Type Severity Reaction Status Date / Time No Known Allergies Allergy Verified 05/18/18 14:26 Physical Exam Vitals: Vital Signs Temp Pulse Pulse Resp BP BP Pulse Ox 05/18/18 15:38 100 05/18/18 15:36 97.6 F 97 18 148/92 95 05/18/18 15:27 96 05/18/18 15:15 98.6 F 97 16 137/87 95 05/18/18 13:42 98.6 F 95 20 142/81 97 05/18/18 13:26 98 05/18/18 13:02 92 05/18/18 12:22 98.5 F 94 18 155/94 95 Intake and Output 05/18/18 05/18/18 05/18/18 06:59 14:59 22:59 Other: # Voids 1 Weight 144.5 kg - Constitutional General appearance: cooperative, no acute distress, obese - EENT Eyes: anicteric sclerae, EOMI, PERRLA, dentition normal ENT: NA/AT, normal oropharynx - Neck Neck: normal ROM - Respiratory Respiratory: bilateral: wheezing, negative: CTA, diminished, dullness, rales - Cardiovascular Rhythm: regular Heart sounds: normal: S1, S2 Abnormal Heart Sounds: no systolic murmur, no diastolic murmur, no rub, no S3 Gallop, no S4 Gallop, no click, no other - Gastrointestinal General gastrointestinal: normal bowel sounds, soft - Integumentary Integumentary: decreased turgor, normal - Neurologic Neurologic: CNII-XII intact - Musculoskeletal Musculoskeletal: gait normal, strength equal bilaterally Results CBC & Chem 7: 05/18/18 12:50 05/18/18 12:50 Labs: Abnormal Lab Results - Last 24 Hours (Table) 05/18/18 05/18/18 05/18/18 Range/Units 12:50 12:50 12:50 WBC 11.6 H (3.8-10.6) k/uL Neutrophils # 8.2 H (1.3-7.7) k/uL APTT 21.0 L (22.0-30.0) sec Glucose 119 H (74-99) mg/dL POC Glucose (mg/dL) (75-99) mg/dL ALT 20 L (21-72) U/L Total Protein 6.2 L (6.3-8.2) g/dL 05/18/18 Range/Units 16:58 WBC (3.8-10.6) k/uL Neutrophils # (1.3-7.7) k/uL APTT (22.0-30.0) sec Glucose (74-99) mg/dL POC Glucose (mg/dL) 194 H (75-99) mg/dL ALT (21-72) U/L Total Protein (6.3-8.2) g/dL Thrombosis Risk Factor Assmnt - DVT/VTE Prophylaxis DVT/VTE Prophylaxis: Mechanical Prophylaxis ordered - Choose All That Apply Any of the Below Risk Factors Present?: Yes Each Factor Represents 1 point: Age 41-60 years, Obesity (BMI >25) Other Risk Factors: No Other congenital or acquired thrombophilia - If yes, enter type in comment: No Thrombosis Risk Factor Assessment Total Risk Factor Score: 2 Thrombosis Risk Factor Assessment Level: Low Risk Assessment and Plan Plan: 1. Acute moderate persistent asthma exacerbation be somewhat aggravated by new carpet from home, patient would be given Solu-Medrol nebulized treatments albuterol and Pulmicort, has to get rid of the new carpet from home, and in best on ionizing air filter/Purifier environmental triggers were discussed, patient is very receptive of his triggers. Continue on Singulair patient has nebulizer unit at home. Continue on doxycycline by mouth. patient will be on inhaled and nebulized steroids post discharge 2. Super obesity BMI of 51 at risk for sleep apnea, probable obesity hypoventilation syndrome, sleep study still has to be completed as was discussed in outpatient follows with Dr. Bustillos/Rikki Griffith pulmonary 3. Hypertension, on lisinopril 20/25 HCTZ, elevated during this admission, he would increase it to twice a day with parameters 4. Diabetes mellitus type 2 with hyperglycemia, will provide correctional steroid coverage, home medications to be reviwed and adjusted 2. Perennial ALLERGIES/ extrinsic asthma component, on Claritin and Singulair
[2018-05-19 12:32] LABS: Glucose,Whole Blood 135 mg/dL (75-99)
--- NOTE | 2018-05-19 15:46 | P.PN ---
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 She has underlying history of diabetes mellitus type 2, moderate persistent asthma, was recently discharged from [facility] after a bout of asthma exacerbation. He was doing well Saturday, discharged on 922 from [facility]. He can planed of having shortness of breath after they have staying at home, apparently there is a new carpet that the son had brought in from a car dealership show this Saturday thereafter patient has increasing shortness of breath despite nebulizer use of albuterol and steroid inhaler. He has a dog for which she had for the past 8 years, no new farm exposure. He was also evaluated with negative troponins and normal EKG during his last admission at [facility]. Patient is on prednisone on discharge, Singulair nebulizer albuterol and steroid inhalers, Doxycycline. Patient denies any new leg swelling, no hemoptysis no fever no chest pain no pleurisy.. Sleep study is anticipated to be done as an outpatient, still needs to be scheduled. Emergency room EKG shows normal sinus rhythm and normal ST-T wave changes heart rate of 91 sinus chest x-ray shows prominent lung volume, no infiltrate, no pleural effusion no cardiomegaly correlated for COPD. Patient was admitted for asthma exacerbation triggered by carpet exposure, consult to Dr. Winnie Griffith pulmonary 05/19: Patient has a nebulizer at home as well as albuterol. He states his family is removing the carpet that was put in on Saturday. He states he has been ambulating in the hallway. Pulse ox is 96% on 2 L and is currently off oxygen with ambulation. Plan is to increase activity. Patient denies any lower extremity edema. He denies any fever or chills. He has been afebrile. Blood pressure is elevated and lisinopril changed to twice daily recommend the patient have ionized purifier at home. He does have a dog in the home which she 's had for 8 years. Objective - Vital Signs Vital signs: Vital Signs Temp 99.0 F 05/19/18 07:00 Pulse 100 05/19/18 09:04 Resp 22 05/19/18 07:00 BP 152/91 05/19/18 07:00 Pulse Ox 96 05/19/18 07:00 Intake & Output 05/18/18 05/19/18 05/19/18 18:59 06:59 18:59 Weight 144.5 kg Other: # Voids 1 1 - Exam General appearance: cooperative, no acute distress, obese - EENT Eyes: anicteric sclerae, EOMI, PERRLA, dentition normal ENT: NA/AT, normal oropharynx - Neck Neck: normal ROM - Respiratory Respiratory: bilateral: wheezing, negative: CTA, diminished, dullness, rales - Cardiovascular Rhythm: regular Heart sounds: normal: S1, S2 Abnormal Heart Sounds: no systolic murmur, no diastolic murmur, no rub, no S3 Gallop, no S4 Gallop, no click, no other - Gastrointestinal General gastrointestinal: normal bowel sounds, soft - Integumentary Integumentary: decreased turgor, normal - Neurologic Neurologic: CNII-XII intact - Musculoskeletal Musculoskeletal: gait normal, strength equal bilaterally - Labs CBC & Chem 7: 05/18/18 12:50 05/18/18 12:50 Labs: Abnormal Lab Results - Last 24 Hours (Table) 05/18/18 05/18/18 05/18/18 Range/Units 12:50 12:50 12:50 WBC 11.6 H (3.8-10.6) k/uL Neutrophils # 8.2 H (1.3-7.7) k/uL APTT 21.0 L (22.0-30.0) sec Glucose 119 H (74-99) mg/dL POC Glucose (mg/dL) (75-99) mg/dL Hemoglobin A1c (4.0-6.0) % ALT 20 L (21-72) U/L Total Protein 6.2 L (6.3-8.2) g/dL 05/18/18 05/18/18 05/18/18 Range/Units 12:50 16:58 20:20 WBC (3.8-10.6) k/uL Neutrophils # (1.3-7.7) k/uL APTT (22.0-30.0) sec Glucose (74-99) mg/dL POC Glucose (mg/dL) 194 H 186 H (75-99) mg/dL Hemoglobin A1c 6.8 H (4.0-6.0) % ALT (21-72) U/L Total Protein (6.3-8.2) g/dL 05/19/18 Range/Units 07:28 WBC (3.8-10.6) k/uL Neutrophils # (1.3-7.7) k/uL APTT (22.0-30.0) sec Glucose (74-99) mg/dL POC Glucose (mg/dL) 155 H (75-99) mg/dL Hemoglobin A1c (4.0-6.0) % ALT (21-72) U/L Total Protein (6.3-8.2) g/dL Assessment and Plan Plan: 1. Acute moderate persistent asthma exacerbation be somewhat aggravated by new carpet from home, patient would be given Solu-Medrol nebulized treatments albuterol and Pulmicort, has to get rid of the new carpet from home, and in best on ionizing air filter/Purifier environmental triggers were discussed, patient is very receptive of his triggers. Continue on Singulair patient has nebulizer unit at home. Continue on doxycycline by mouth. patient will be on inhaled and nebulized steroids post discharge 2. Super obesity BMI of 51 at risk for sleep apnea, probable obesity hypoventilation syndrome, sleep study still has to be completed as was discussed in outpatient follows with Dr. Bustillos/Rikki Griffith pulmonary 3. Hypertension, on lisinopril 20/25 HCTZ, elevated during this admission, he would increase it to twice a day with parameters 4. Diabetes mellitus type 2 5. Perennial ALLERGIES on Claritin and Singulair Discharge plan: Home tomorrow Impression and plan of care have been directed as dictated by the signing physician. Kiley Diaz nurse practitioner acting as scribe for signing physician.
[2018-05-19] MEDS: methylPREDNISolone SOD SUCCI 40 MG/ML 1 ML VIAL IV SCH ×2 (16:35→23:03)
[2018-05-19] MEDS: IPRATROPIUM-ALBUTEROL 3 ML NEB INHALATION PRN (16:36)
[2018-05-19 17:18] LABS: Glucose,Whole Blood 177 mg/dL (75-99)
[2018-05-19 20:52] LABS: Glucose,Whole Blood 178 mg/dL (75-99)
[2018-05-19] MEDS: LISINOPRIL 20 MG TAB PO SCH (22:07)
[2018-05-20] MEDS: IPRATROPIUM-ALBUTEROL 3 ML NEB INHALATION PRN (03:33)
[2018-05-20] MEDS: BUDESONIDE 0.5 MG/2 ML NEBU INHALATION SCH ×2 (07:33→19:45)
[2018-05-20] MEDS: IPRATROPIUM-ALBUTEROL 3 ML NEB INHALATION SCH ×4 (07:33→19:45)
[2018-05-20 07:35] LABS: Glucose,Whole Blood 141 mg/dL (75-99)
[2018-05-20] MEDS: INSULIN ASPART 100 UNIT/ML 1 ML 10 ML VIAL SQ SCH ×4 (07:58→21:32)
[2018-05-20] MEDS: methylPREDNISolone SOD SUCCI 40 MG/ML 1 ML VIAL IV SCH (07:59)
[2018-05-20] MEDS: FAMOTIDINE 20 MG TAB PO SCH ×2 (07:59→21:32)
[2018-05-20] MEDS: HEPARIN SODIUM,PORCINE 5,000 UNIT/ML 1 ML VIAL SQ SCH ×2 (08:00→23:40)
[2018-05-20] MEDS: LISINOPRIL-HCTZ 20-25 MG 1 EACH TAB PO SCH (11:14)
--- NOTE | 2018-05-20 12:20 | P.PN ---
<Shu Ferrer E - Last Filed: 05/20/18 12:16> Subjective Progress Note Date: 05/20/18 HPI: Joni Brown is a 57-year-old male with a history of severe asthma, who presented to the [facility] with increasing shortness of breath. He had recently been admitted to [facility] and discharged yesterday. He will home and started to become more short of breath. He was seen in the ER at [facility] in improved after conservative care. Troponins were done which were negative at that time and his breathing improved. He subsequently started to worsen after discharge and he can to [facility]. He does have a small dog at home that apparently showed small positive for and has intermittently had a dog with him for the last 8 years. He denies any fever or chills or rigors. He has no chest pain at this time. Interval history: 05/19/2018patient is being seen examined and evaluated today on rounds. He is resting up in bed on 2 L of supplemental oxygen via nasal cannula. The patient states that he did have some changes in his home environment the day before he went to [facility] for his first admission. The patient states he had some use carpet installed into his house prior to starting his exacerbating symptoms. He thinks when he went home after being discharged the first time that having the second exposure to the use carpet that was installed is what made him go back into exacerbation and come back to the hospital. The patient states he is having that carpet removed out of his house today. He has been responding well to the steroids. He feels his breathing is improved today. Continues with his breathing treatments. He is afebrile, denies any further complaints. 05/20/18- patient is being seen examined and evaluated today on rounds. Patient' s breathing has been stable. He has been taking walks up and down the strong. He feels his breathing is better. He is on room air now. All labs and reports have been reviewed. Breathing treatments are helping. Objective - Vital Signs Vital signs: Vital Signs Temp 98.0 F 05/20/18 05:29 Pulse 78 05/20/18 07:59 Resp 18 05/20/18 07:34 BP 142/89 05/20/18 11:14 Pulse Ox 95 05/20/18 07:34 Intake & Output 05/19/18 05/20/18 05/20/18 18:59 06:59 18:59 Other: # Voids 3 2 # Bowel Movements 1 - Exam GENERAL EXAM: Alert, active, comfortable in no apparent distress. Morbidly obese HEAD: Normocephalic. EYES: Normal reaction of pupils, equal size. NOSE: Clear with pink turbinates. THROAT: No erythema or exudates. NECK: No masses, no JVD. CHEST: No chest wall deformity. LUNGS: Equal air entry with some decreased breath sounds at the bases. He does have prolonged expiration and wheezes on forced expiration. CVS: S1 and S2 normal with no audible mumurs, regular rhythm. ABDOMEN: No hepatosplenomegaly, normal bowel sounds, no guarding or rigidity. EXTREMITIES: No edema noted, pedal pulses palpable. CENTRAL NERVOUS SYSTEM: No focal deficits, tone is normal in all 4 extremities. - Labs CBC & Chem 7: 05/18/18 12:50 05/18/18 12:50 Labs: Abnormal Lab Results - Last 24 Hours (Table) 05/19/18 05/19/18 05/19/18 Range/Units 12:29 17:07 20:50 POC Glucose (mg/dL) 135 H 177 H 178 H (75-99) mg/dL 05/20/18 Range/Units 07:26 POC Glucose (mg/dL) 141 H (75-99) mg/dL Assessment and Plan Assessment: Assessment Acute exacerbation of chronic persistent severe asthma COPD Hyperglycemia related to steroid use and no possible diabetes mellitus Morbid obesity Possible obstructive sleep apnea Plan Patient is cleared from pulmonary standpoint for discharge Medications have been reviewed and will be continued as ordered. Continue with steroid taper, switched from IV to oral. Continue with pulmonary hygiene, coughing and deep breathing exercises, and supportive care. Supplemental oxygen to maintain oxygen saturations of 92% or better. Continue nebulizer treatments. GI and DVT prophylaxis. Increase activity as tolerated Patient will be having the used carpet removed from his house as it is a new exposure and he feels this is causing his recent exacerbations Patient has been advised on multiple times to obtain an outpatient PFT as well as an outpatient sleep study. This patient has a poor follow-up history in the outpatient setting when he comes to pulmonary, he is known to not show up to his appointments post hospitalizations. We will continue to monitor labs/results and adjust treatment as necessary. Further recommendations pending. I performed an examination of the patient and discussed their management with the nurse practitioner. I have reviewed the nurse practitioner's note and agree with the documented findings and plan of care. <Roseline Lee - Last Filed: 05/20/18 12:35> Objective - Vital Signs Vital signs: Vital Signs Temp 98.0 F 05/20/18 05:29 Pulse 80 05/20/18 12:32 Resp 18 05/20/18 07:34 BP 142/89 05/20/18 11:14 Pulse Ox 95 05/20/18 07:34 Intake & Output 05/19/18 05/20/18 05/20/18 18:59 06:59 18:59 Other: # Voids 3 2 # Bowel Movements 1 - Labs CBC & Chem 7: 05/18/18 12:50 05/18/18 12:50 Labs: Abnormal Lab Results - Last 24 Hours (Table) 05/19/18 05/19/18 05/20/18 Range/Units 17:07 20:50 07:26 POC Glucose (mg/dL) 177 H 178 H 141 H (75-99) mg/dL Assessment and Plan Assessment: Change to PO Prednisone. Ok to DC from pulmonary standpoint. Weight loss, outpatient PFT and PSG. Pulmonary follow up. ~Roseline Lee DO
[2018-05-20 13:09] LABS: Glucose,Whole Blood 153 mg/dL (75-99)
[2018-05-20] MEDS: predniSONE 20 MG TAB PO SCH (14:41)
--- NOTE | 2018-05-20 14:41 | P.PN ---
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 Ferreira. She has underlying history of diabetes mellitus type 2, moderate persistent asthma, was recently discharged from [facility] after a bout of asthma exacerbation. He was doing well Saturday, discharged on 922 from [facility]. He can planed of having shortness of breath after they have staying at home, apparently there is a new carpet that the son had brought in from a car dealership show this Saturday thereafter patient has increasing shortness of breath despite nebulizer use of albuterol and steroid inhaler. He has a dog for which she had for the past 8 years, no new farm exposure. He was also evaluated with negative troponins and normal EKG during his last admission at [facility]. Patient is on prednisone on discharge, Singulair nebulizer albuterol and steroid inhalers, Doxycycline. Patient denies any new leg swelling, no hemoptysis no fever no chest pain no pleurisy.. Sleep study is anticipated to be done as an outpatient, still needs to be scheduled. Emergency room EKG shows normal sinus rhythm and normal ST-T wave changes heart rate of 91 sinus chest x-ray shows prominent lung volume, no infiltrate, no pleural effusion no cardiomegaly correlated for COPD. Patient was admitted for asthma exacerbation triggered by carpet exposure, consult to Dr. Winnie Griffith pulmonary 05/19: Patient has a nebulizer at home as well as albuterol. He states his family is removing the carpet that was put in on Saturday. He states he has been ambulating in the hallway. Pulse ox is 96% on 2 L and is currently off oxygen with ambulation. Plan is to increase activity. Patient denies any lower extremity edema. He denies any fever or chills. He has been afebrile. Blood pressure is elevated and lisinopril changed to twice daily recommend the patient have ionized purifier at home. He does have a dog in the home which she 's had for 8 years. 05/20: Pulmonary medicine has switched the patient over to oral prednisone and has cleared him for discharge. Patient relates that the carpet is being removed from his home today and thus discharge is being held until tomorrow. Patient will be discharged percent tomorrow morning. He states his breathing status is improving is currently stable. He is ambulating in the hallway without difficulties. Objective - Vital Signs Vital signs: Vital Signs Temp 98.0 F 05/20/18 05:29 Pulse 80 05/20/18 12:32 Resp 18 05/20/18 07:34 BP 142/89 05/20/18 11:14 Pulse Ox 95 05/20/18 07:34 Intake & Output 05/19/18 05/20/18 05/20/18 18:59 06:59 18:59 Intake Total 320 Balance 320 Intake: Oral 320 Other: # Voids 3 2 2 # Bowel Movements 1 - Exam General appearance: cooperative, no acute distress, obese - EENT Eyes: anicteric sclerae, EOMI, PERRLA, dentition normal ENT: NA/AT, normal oropharynx - Neck Neck: normal ROM - Respiratory Respiratory: bilateral: wheezing, negative: CTA, diminished, dullness, rales - Cardiovascular Rhythm: regular Heart sounds: normal: S1, S2 Abnormal Heart Sounds: no systolic murmur, no diastolic murmur, no rub, no S3 Gallop, no S4 Gallop, no click, no other - Gastrointestinal General gastrointestinal: normal bowel sounds, soft - Integumentary Integumentary: decreased turgor, normal - Neurologic Neurologic: CNII-XII intact - Musculoskeletal Musculoskeletal: gait normal, strength equal bilaterally - Labs CBC & Chem 7: 05/18/18 12:50 05/18/18 12:50 Labs: Abnormal Lab Results - Last 24 Hours (Table) 05/19/18 05/19/18 05/20/18 Range/Units 17:07 20:50 07:26 POC Glucose (mg/dL) 177 H 178 H 141 H (75-99) mg/dL 05/20/18 Range/Units 11:45 POC Glucose (mg/dL) 153 H (75-99) mg/dL Assessment and Plan Plan: 1. Acute moderate persistent asthma exacerbation be somewhat aggravated by new carpet from home, patient would be given Solu-Medrol changed to oral prednisone , continue nebulized treatments albuterol and Pulmicort, has to get rid of the new carpet from home, and in best on ionizing air filter/Purifier environmental triggers were discussed, patient is very receptive of his triggers. Continue on Singulair patient has nebulizer unit at home. Continue on doxycycline by mouth. patient will be on inhaled and nebulized steroids post discharge 2. Super obesity BMI of 51 at risk for sleep apnea, probable obesity hypoventilation syndrome, sleep study still has to be completed as was discussed in outpatient follows with Dr. Bustillos/Rikki Griffith pulmonary 3. Hypertension, on lisinopril 20/25 HCTZ, elevated during this admission, he would increase it to twice a day with parameters 4. Diabetes mellitus type 2 5. Perennial ALLERGIES on Claritin and Singulair Discharge plan: Home tomorrow Impression and plan of care have been directed as dictated by the signing physician. Kiley Diaz nurse practitioner acting as scribe for signing physician.
[2018-05-20 17:19] LABS: Glucose,Whole Blood 206 mg/dL (75-99)
[2018-05-20 20:36] LABS: Glucose,Whole Blood 214 mg/dL (75-99)
[2018-05-20] MEDS: LISINOPRIL 20 MG TAB PO SCH (21:32)
[2018-05-20] MEDS: MONTELUKAST 10 MG TAB PO SCH (21:32)
[2018-05-20] MEDS: LORATADINE 10 MG TAB PO SCH (21:32)
[2018-05-20 22:40] VITALS: RESP 18
[2018-05-21] MEDS: IPRATROPIUM-ALBUTEROL 3 ML NEB INHALATION PRN (03:17)
[2018-05-21 06:08] VITALS: BP 144/78; TEMP 97.8
[2018-05-21 07:18] LABS: Glucose,Whole Blood 103 mg/dL (75-99)
[2018-05-21] MEDS: INSULIN ASPART 100 UNIT/ML 1 ML 10 ML VIAL SQ SCH (07:34)
[2018-05-21] MEDS: IPRATROPIUM-ALBUTEROL 3 ML NEB INHALATION SCH (08:45)
[2018-05-21] MEDS: BUDESONIDE 0.5 MG/2 ML NEBU INHALATION SCH (08:45)
[2018-05-21] MEDS: FAMOTIDINE 20 MG TAB PO SCH (08:53)
[2018-05-21] MEDS: HEPARIN SODIUM,PORCINE 5,000 UNIT/ML 1 ML VIAL SQ SCH (08:53)
[2018-05-21] MEDS: predniSONE 20 MG TAB PO SCH (08:54)
[2018-05-21] MEDS: LISINOPRIL-HCTZ 20-25 MG 1 EACH TAB PO SCH (08:54)
[2018-05-21 09:03] VITALS: PULSE 88
--- NOTE | 2018-05-21 10:22 | P.PN ---
<Shu Ferrer E - Last Filed: 05/21/18 10:20> Subjective Progress Note Date: 05/21/18 HPI: Joni Brown is a 57-year-old male with a history of severe asthma, who presented to the [facility] with increasing shortness of breath. He had recently been admitted to [facility] and discharged yesterday. He will home and started to become more short of breath. He was seen in the ER at [facility] in improved after conservative care. Troponins were done which were negative at that time and his breathing improved. He subsequently started to worsen after discharge and he can to [facility]. He does have a small dog at home that apparently showed small positive for and has intermittently had a dog with him for the last 8 years. He denies any fever or chills or rigors. He has no chest pain at this time. Interval history: 05/19/2018patient is being seen examined and evaluated today on rounds. He is resting up in bed on 2 L of supplemental oxygen via nasal cannula. The patient states that he did have some changes in his home environment the day before he went to [facility] for his first admission. The patient states he had some use carpet installed into his house prior to starting his exacerbating symptoms. He thinks when he went home after being discharged the first time that having the second exposure to the use carpet that was installed is what made him go back into exacerbation and come back to the hospital. The patient states he is having that carpet removed out of his house today. He has been responding well to the steroids. He feels his breathing is improved today. Continues with his breathing treatments. He is afebrile, denies any further complaints. 05/20/18- patient is being seen examined and evaluated today on rounds. Patient' s breathing has been stable. He has been taking walks up and down the strong. He feels his breathing is better. He is on room air now. All labs and reports have been reviewed. Breathing treatments are helping. 05/21/2018patient is being seen examined and evaluated today on rounds. His breathing has improved greatly. He feels like he is back to his baseline. His carpet that was causing the issue has been officially removed from his house. He is being prepared for discharge. It is reiterated to the patient the importance of following up with pulmonology in the outpatient setting. The patient is agreeable to follow-up. He is afebrile no further complaints discharge planning underway. Objective - Vital Signs Vital signs: Vital Signs Temp 97.8 F 05/21/18 06:08 Pulse 88 05/21/18 09:03 Resp 18 05/21/18 06:08 BP 144/78 05/21/18 06:08 Pulse Ox 93 L 05/21/18 06:08 Intake & Output 05/20/18 05/21/18 05/21/18 18:59 06:59 18:59 Intake Total 320 Balance 320 Intake: Oral 320 Other: # Voids 2 1 - Exam GENERAL EXAM: Alert, active, comfortable in no apparent distress. Morbidly obese HEAD: Normocephalic. EYES: Normal reaction of pupils, equal size. NOSE: Clear with pink turbinates. THROAT: No erythema or exudates. NECK: No masses, no JVD. CHEST: No chest wall deformity. LUNGS: Equal air entry with faint expiratory wheeze. Improved aeration overall CVS: S1 and S2 normal with no audible mumurs, regular rhythm. ABDOMEN: No hepatosplenomegaly, normal bowel sounds, no guarding or rigidity. EXTREMITIES: No edema noted, pedal pulses palpable. CENTRAL NERVOUS SYSTEM: No focal deficits, tone is normal in all 4 extremities. - Labs CBC & Chem 7: 05/18/18 12:50 05/18/18 12:50 Labs: Abnormal Lab Results - Last 24 Hours (Table) 05/20/18 05/20/18 05/20/18 Range/Units 11:45 17:02 20:35 POC Glucose (mg/dL) 153 H 206 H 214 H (75-99) mg/dL 05/21/18 Range/Units 07:06 POC Glucose (mg/dL) 103 H (75-99) mg/dL Assessment and Plan Assessment: Assessment Acute exacerbation of chronic persistent severe asthma COPD Hyperglycemia related to steroid use and no possible diabetes mellitus Morbid obesity Possible obstructive sleep apnea Plan Patient is cleared from pulmonary standpoint for discharge Medications have been reviewed and will be continued as ordered. Continue with steroid taper, switched from IV to oral. Continue with pulmonary hygiene, coughing and deep breathing exercises, and supportive care. Supplemental oxygen to maintain oxygen saturations of 92% or better. Continue nebulizer treatments. GI and DVT prophylaxis. Increase activity as tolerated Patient will be having the used carpet removed from his house as it is a new exposure and he feels this is causing his recent exacerbations Patient has been advised on multiple times to obtain an outpatient PFT as well as an outpatient sleep study. This patient has a poor follow-up history in the outpatient setting when he comes to pulmonary, he is known to not show up to his appointments post hospitalizations. We will continue to monitor labs/results and adjust treatment as necessary. Further recommendations pending. I performed an examination of the patient and discussed their management with the nurse practitioner. I have reviewed the nurse practitioner's note and agree with the documented findings and plan of care. <Roseline Lee - Last Filed: 05/21/18 13:29> Objective - Vital Signs Vital signs: Vital Signs Temp 97.8 F 05/21/18 06:08 Pulse 88 05/21/18 09:03 Resp 18 05/21/18 06:08 BP 144/78 05/21/18 06:08 Pulse Ox 93 L 05/21/18 06:08 Intake & Output 05/20/18 05/21/18 05/21/18 18:59 06:59 18:59 Intake Total 320 Balance 320 Intake: Oral 320 Other: # Voids 2 1 - Labs CBC & Chem 7: 05/18/18 12:50 05/18/18 12:50 Labs: Abnormal Lab Results - Last 24 Hours (Table) 05/20/18 05/20/18 05/21/18 Range/Units 17:02 20:35 07:06 POC Glucose (mg/dL) 206 H 214 H 103 H (75-99) mg/dL 05/21/18 Range/Units 12:02 POC Glucose (mg/dL) 110 H (75-99) mg/dL Assessment and Plan Assessment: Ok to DC from pulmonary standpoint. Outpatient follow up recommended. ~Roseline Lee DO
[2018-05-21 12:08] LABS: Glucose,Whole Blood 110 mg/dL (75-99)
--- NOTE | 2018-05-21 14:26 | P.DS ---
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 She has underlying history of diabetes mellitus type 2, moderate persistent asthma, was recently discharged from [facility] after a bout of asthma exacerbation. He was doing well Saturday, discharged on from [facility]. He can planed of having shortness of breath after they have staying at home, apparently there is a new carpet that the son had brought in from a car dealership show this Saturday thereafter patient has increasing shortness of breath despite nebulizer use of albuterol and steroid inhaler. He has a dog for which she had for the past 8 years, no new farm exposure. He was also evaluated with negative troponins and normal EKG during his last admission at [facility]. Patient is on prednisone on discharge, Singulair nebulizer albuterol and steroid inhalers, Doxycycline. Patient denies any new leg swelling, no hemoptysis no fever no chest pain no pleurisy.. Sleep study is anticipated to be done as an outpatient, still needs to be scheduled. Emergency room EKG shows normal sinus rhythm and normal ST-T wave changes heart rate of 91 sinus chest x-ray shows prominent lung volume, no infiltrate, no pleural effusion no cardiomegaly correlated for COPD. Patient was admitted for asthma exacerbation triggered by carpet exposure, consult to Dr. Bustillos/Rikki Griffith pulmonary 05/19: Patient has a nebulizer at home as well as albuterol. He states his family is removing the carpet that was put in on Saturday. He states he has been ambulating in the hallway. Pulse ox is 96% on 2 L and is currently off oxygen with ambulation. Plan is to increase activity. Patient denies any lower extremity edema. He denies any fever or chills. He has been afebrile. Blood pressure is elevated and lisinopril changed to twice daily recommend the patient have ionized purifier at home. He does have a dog in the home which he has had for 8 years. 05/20: Patient states it carpet was removed and home was cleaned yesterday. Breathing status has been stable with no changes. Patient will be discharged home today in stable condition. Discharge diagnoses: 1. Acute moderate persistent asthma exacerbation somewhat aggravated by new carpet at home 2. Super obesity BMI of 51 at risk for sleep apnea, probable obesity hypoventilation syndrome, sleep study still has to be completed 3. Hypertension 4. Diabetes mellitus type 2 5. Perennial ALLERGIES Discharge plan: Home Impression and plan of care have been directed as dictated by the signing physician. Kiley Diaz nurse practitioner acting as scribe for signing physician. Patient Condition at Discharge: Good Plan - Discharge Summary New Discharge Prescriptions: New Budesonide-Formot 160-4.5 Mcg [Symbicort 160-4.5 Mcg Inhaler] 2 puff INHALATION BID #1 inhaler Lisinopril [Prinivil] 20 mg PO HS #30 tablet Continue guaiFENesin-DM 600/30MG [Mucinex Dm] 1 tab PO BID Montelukast Sodium [Singulair] 10 mg PO DAILY Loratadine [Claritin] 10 mg PO DAILY Lisinopril-Hctz 20-25 mg [Zestoretic 20-25] 1 tab PO DAILY Doxycycline Monohydrate [Monodox] 100 mg PO BID predniSONE 60 mg PO DAILY Albuterol Sulfate [Proair Hfa] 1 - 2 puff INHALATION RT-Q6H PRN PRN Reason: Shortness Of Breath Discharge Medication List Albuterol Sulfate [Proair Hfa] 1 - 2 puff INHALATION RT-Q6H PRN 05/18/18 [ History] Doxycycline Monohydrate [Monodox] 100 mg PO BID 05/18/18 [History] Lisinopril-Hctz 20-25 mg [Zestoretic 20-25] 1 tab PO DAILY 05/18/18 [History] Loratadine [Claritin] 10 mg PO DAILY 05/18/18 [History] Montelukast Sodium [Singulair] 10 mg PO DAILY 05/18/18 [History] guaiFENesin-DM 600/30MG [Mucinex Dm] 1 tab PO BID 05/18/18 [History] predniSONE 60 mg PO DAILY 05/18/18 [History] Budesonide-Formot 160-4.5 Mcg [Symbicort 160-4.5 Mcg Inhaler] 2 puff INHALATION BID #1 inhaler 05/20/18 [Rx] Lisinopril [Prinivil] 20 mg PO HS #30 tablet 05/21/18 [Rx] Follow up Appointment(s)/Referral(s): Rodney Ferreira MD [Primary Care Provider] - 05/29/18 2:45 pm Riki Griffith MD [STAFF PHYSICIAN] - 05/28/18 4:00 pm (PFT and OP Sleep Study [address] Please have your primary care provider recieve prior authorization for sleep study test. ) Patient Instructions/Handouts: Asthma (DC), COPD (Chronic Obstructive Pulmonary Disease) (DC) Activity/Diet/Wound Care/Special Instructions: Hold Lisinopril if Systolic (top number) Blood Pressure is less than 110. Prednisone 60mg x 3 days, 50mg x 3day, 40mg x 3days, 30mg x 3days, 20mg x 3days , 10 mg x3days, then stop. Discharge Disposition: HOME SELF-CARE
== END 2018-05-21 13:04 | disposition home or self-care (01) ==
LOC: EC 12:18 → 4MS4W 14:42
PROVIDERS: ADMIT Family Medicine; ATTEND Family Medicine
DX: J45.51 Severe persistent asthma with (acute) exacerbation (principal); E66.01 Morbid (severe) obesity due to excess calories; Z68.43 Body mass index [BMI] 50.0-59.9, adult; I10 Essential (primary) hypertension; J44.9 Chronic obstructive pulmonary disease, unspecified; E11.65 Type 2 diabetes mellitus with hyperglycemia; T38.0X5A Adverse effect of glucocorticoids and synthetic analogues, initial encounter; J30.2 Other seasonal allergic rhinitis; D75.1 Secondary polycythemia; K21.9 Gastro-esophageal reflux disease without esophagitis; M19.90 Unspecified osteoarthritis, unspecified site; Z87.891 Personal history of nicotine dependence; Z79.899 Other long term (current) drug therapy; Z79.2 Long term (current) use of antibiotics; Z80.41 Family history of malignant neoplasm of ovary; X58.XXXA Exposure to other specified factors, initial encounter; Y92.009 Unspecified place in unspecified non-institutional (private) residence as the place of occurrence of the external cause
CPT/HCPCS: 99285 ×2; 96374 ×2; 96376 ×3; 96372 ×4; 36415; 94640 ×8; 94760; 93005; 83880; 80053; 82550; 82553; 83735; 84484; 85025; 85610; 85730; 83036; 71046; G0378 ×4; J1644 ×4; J2920 ×2; J2930 ×2; J7512 ×2

== ENCOUNTER 2018-06-05 03:34 | Observation (INO) | payer BC ==
--- NOTE | 2018-06-05 03:57 | ED ---
Chest Pain HPI - General Chief Complaint: Chest Pain Stated Complaint: Chest pain Time Seen by Provider: 06/05/18 03:56 Source: patient Mode of arrival: wheelchair Limitations: no limitations - History of Present Illness Initial Comments: Patient is 58-year-old man who states that he has been having pain distal left the sternum as well as nausea that is been going on most of the night. He states that it did seem to become a little more severe around 1 AM. Patient states he was lying down watching TV at the time. I states it is an aching. He has not noted worsening or relieving factors. Other than the nausea no accompanying symptoms. MD Complaint: chest pain Onset/Timin -: hour(s) Onset: during rest Pain Location: left chest Pain Radiation: none Severity: moderate Quality: aching Consistency: constant Improves With: nothing Worsens With: nothing Anginal Symptoms: nausea Treatments Prior to Arrival: none - Related Data Home Medications Medication Instructions Recorded Confirmed Albuterol Sulfate [Proair Hfa] 1 - 2 puff INHALATION RT-Q6H PRN 05/18/18 Lisinopril-Hctz 20-25 mg 1 tab PO DAILY 05/18/18 06/05/18 [Zestoretic 20-25] Loratadine [Claritin] 10 mg PO DAILY 05/18/18 06/05/18 Montelukast Sodium [Singulair] 10 mg PO DAILY 05/18/18 06/05/18 predniSONE 10 mg PO DAILY 05/18/18 06/05/18 Previous Rx's Medication Instructions Recorded Budesonide-Formot 160-4.5 Mcg 2 puff INHALATION BID #1 inhaler 05/20/18 [Symbicort 160-4.5 Mcg Inhaler] Allergies Allergy/AdvReac Type Severity Reaction Status Date / Time No Known Allergies Allergy Verified 06/05/18 03:41 Review of Systems ROS Statement: Those systems with pertinent positive or pertinent negative responses have been documented in the HPI. ROS Other: All systems not noted in ROS Statement are negative. Constitutional: Denies: fever, chills Respiratory: Denies: cough, dyspnea Cardiovascular: Reports: chest pain. Denies: palpitations, edema, syncope Gastrointestinal: Reports: nausea. Denies: abdominal pain, vomiting, diarrhea Genitourinary: Denies: urgency, dysuria Musculoskeletal: Denies: back pain Skin: Denies: rash Neurological: Denies: headache EKG Findings - EKG Results: EKG: interpreted by KRISHAN ANDERSON, sinus rhythm (Rate 97 bpm), normal axis, normal QRS, normal ST/T, no acute changes - FL, Pacemaker, Normal: Normal tracing: normal tracing Past Medical History Past Medical History: Asthma, Diabetes Mellitus, GERD/Reflux, Hypertension, Osteoarthritis (OA), Sleep Apnea/CPAP/BIPAP Additional Past Medical History / Comment(s): UMBILICAL HERNIA History of Any Multi-Drug Resistant Organisms: None Reported Past Surgical History: No Surgical Hx Reported Additional Past Surgical History / Comment(s): Umbilical hernia repair, colonoscopy, skin biopsy Past Anesthesia/Blood Transfusion Reactions: No Reported Reaction Past Psychological History: No Psychological Hx Reported Smoking Status: Former smoker Past Alcohol Use History: None Reported Past Drug Use History: None Reported - Past Family History Mother History Unknown: Yes (Mom in her 60s from accident with history of ovary cancer) Family Medical History: No Reported History Father History Unknown: Yes (Disease in his 30s from accident) Brother(s) Family Medical History: No Reported History Sister(s) Family Medical History: No Reported History Daughter(s) Family Medical History: Unable to Obtain (No daughters no sons) General Exam Limitations: no limitations General appearance: alert, in no apparent distress, obese Head exam: Present: atraumatic, normocephalic Eye exam: Present: normal appearance. Absent: scleral icterus, conjunctival injection ENT exam: Present: normal oropharynx Neck exam: Present: normal inspection Respiratory exam: Present: normal lung sounds bilaterally. Absent: respiratory distress, wheezes, rales, rhonchi, stridor Cardiovascular Exam: Present: regular rate, normal rhythm, normal heart sounds. Absent: systolic murmur, diastolic murmur, rubs, gallop GI/Abdominal exam: Present: soft. Absent: distended, tenderness, guarding, rebound, mass Extremities exam: Present: normal inspection, normal capillary refill. Absent: pedal edema, calf tenderness Back exam: Present: normal inspection. Absent: CVA tenderness (R), CVA tenderness (L) Neurological exam: Present: alert Skin exam: Present: warm, dry, intact, normal color. Absent: rash Course Vital Signs 06/05/18 06/05/18 03:38 06:24 Temperature 98 F Pulse Rate 102 H 89 Respiratory 18 18 Rate Blood Pressure 138/89 95/73 O2 Sat by Pulse 95 98 Oximetry Disposition Clinical Impression: Chest pain Disposition: ADMITTED IP TO THIS HOSP Condition: Fair Instructions: Chest Pain (ED) Referrals: Rodney Ferreira MD [Primary Care Provider] - 1-2 days
[2018-06-05 04:56] LABS: Basophils % (A) 0 %; Eosinophils # (A) 0.2 k/uL (0-0.7); Eosinophils % (A) 2 %; HCT 47.2 % (39.0-53.0); HGB 15.9 gm/dL (13.0-17.5); Lymphocytes # (A) 2.9 k/uL (1.0-4.8); Lymphocytes % (A) 29 %; MCH 30.3 pg (25.0-35.0); MCHC 33.7 g/dL (31.0-37.0); Mean Platelet Volume 6.3; Monocytes # (A) 0.6 k/uL (0-1.0); Monocytes % (A) 6 %; Neutrophils # (A) 6.2 k/uL (1.3-7.7); Neutrophils % (A) 62 %; Platelet Count 261 k/uL (150-450); RBC 5.25 m/uL (4.30-5.90); RDW 13.1 % (11.5-15.5)
[2018-06-05 05:02] LABS: ALT 18 U/L (21-72); AST 15 U/L (17-59); Albumin 3.4 g/dL (3.5-5.0); Alkaline Phosphatase 49 U/L (38-126); Amylase 45 U/L (30-110); Anion Gap 9 mmol/L; Blood Urea Nitrogen 21 mg/dL (9-20); Carbon Dioxide 24 mmol/L (22-30); Chloride 105 mmol/L (98-107); Glucose 101 mg/dL (74-99); Lipase 147 U/L (23-300); Magnesium 1.9 mg/dL (1.6-2.3); Sodium 138 mmol/L (137-145); Total Bilirubin 0.7 mg/dL (0.2-1.3); Total Protein 6.1 g/dL (6.3-8.2)
[2018-06-05 05:05] LABS: Creatine Kinase 46 U/L (55-170)
--- NOTE | 2018-06-05 05:05 | XR ---
EXAMINATION TYPE: XR chest 1V portable DATE OF EXAM: 06/05/2018 COMPARISON: 05/18/2018 HISTORY: Asthma. Diabetes. Chest pain TECHNIQUE: Single frontal view of the chest is obtained. FINDINGS: Heart and mediastinum are normal. Lungs are clear. Diaphragm is normal. There are chest le ads. Bony thorax is intact. IMPRESSION: Normal chest. No change.
[2018-06-05 05:18] LABS: Creatine Kinase MB 0.8 ng/mL (0.0-2.4); Partial Thromboplastin Time 22.7 sec (22.0-30.0); Prothrombin Time 9.6 sec (9.0-12.0); Troponin I <0.012 ng/mL (0.000-0.034)
[2018-06-05 05:22] LABS: D-Dimer 1.25 mg/L FEU (<0.60)
[2018-06-05 05:23] LABS: MCV 89.9 fL (80.0-100.0)
--- NOTE | 2018-06-05 06:27 | CT ---
EXAMINATION TYPE: CT chest angio for PE DATE OF EXAM: 06/05/2018 COMPARISON: 11/04/2016 HISTORY: chest pain CT DLP: 857.60 mGycm Automated exposure control for dose reduction was used. CONTRAST: CT Chest for pulmonary embolism performed with with IV Contrast, patient injected with 100mL mL of Is ovue 370. There are 3-D post processed images. FINDINGS: The lungs are clear of infiltrate. There is no evidence of a pulmonary mass. There is no pleural effu sidney. Upper abdominal soft tissues are unremarkable. There is noncalcified 9 mm nodule in the lateral right lower lobe unchanged. This suggests benign dis ease. Heart size is normal. There is no pericardial effusion. There is enlarged right bronchial lymph nodes . These measure up to 18 x 12 mm. There is no mediastinal adenopathy. There is normal contrast opacification of the pulmonary arteries. I see no filling defect. The bony structures appear intact. IMPRESSION: No evidence of pulmonary embolism. Enlarged right bronchial lymph nodes unchanged. Stable right lower lobe pulmonary nodule.
[2018-06-05] MEDS ORDERED: NITROGLYCERIN SL TABS 0.4 MG TAB SUBLINGUAL PRN (06:35)
[2018-06-05] MEDS: SODIUM CHLORIDE 0.9% 1,000 ML IV SCH ×2 (08:42→20:36)
[2018-06-05 09:38] LABS: Cholesterol 252 mg/dL (<200); HDL Cholesterol 56 mg/dL (40-60); LDL Cholesterol,Calculated 148 mg/dL (0-99); Triglycerides 241 mg/dL (<150)
--- NOTE | 2018-06-05 10:44 | P.CRDCN ---
History of Present Illness History of present illness: Mr. Brown is a pleasant 58-year-old male past medical history significant for hypertension, diabetes mellitus new diagnosis in the last month per the patient, asthma, gastroesophageal reflux disease and obesity. He has been to the office one time in [address] Lemus. Most recent stress test performed 2013 here was a stress echo that was negative for stress induced ischemia. We have been asked to see him in consultation for chest pain. He states he was recently admitted here with acute exacerbation of asthma. He was discharged home 05/21 on antibiotics and steroids. He states since then he has felt intermittent symptoms of discomfort in his chest located in the left precordial region with associated shortness of breath and diaphoresis. He feels as if he has to stop frequently to catch his breath and is unable to do the same activities he typically does without becoming very diaphoretic. He has been following with his PCP and is scheduled for an outpatient stress test today at [facility]. He felt the discomfort in his chest became more intense yesterday and came to ED for evaluation. He also complains of a full sensation of his lower extremities he states that she does feel tighter than usual. He denies PND or orthopnea. He is seen and examined by myself and Dr. Griffith in no acute distress. He is chest pain-free. EKG reveals sinus mechanism with no acute ST or T wave abnormalities noted. Chest x-ray is negative for an acute cardiopulmonary process. CT chest negative for pulmonary embolism with a stable nodule noted in the right lower lobe. Laboratory data reviewed, hemoglobin 15.9, platelets 261, d-dimer 1.25, sodium 138, potassium 4.0, magnesium 1.9, creatinine 0.88, cardiac enzymes negative 2 , NT proBNP 20, LDL 148, HDL 56, triglycerides 241 a total cholesterol 252. Current cardiac medications include lisinopril/HCTZ 20/25 mg daily. He also takes metformin, Singulair, albuterol and Claritin. Plan: NT proBNP has been obtained and reviewed is normal. Obtain 2-D echocardiogram and Doppler study to assess cardiac structure and function. Perform stress echocardiogram to assess for stress-induced cardiac ischemia. Start the patient on atorvastatin 40 mg daily and aspirin 81 mg daily. Resume home cardiac medications. Lifestyle modifications are recommended for weight loss and low cholesterol/had diet. Review of Systems At the time of my exam: CONSTITUTIONAL: Denies fever. Denies chills. EYES: Denies blurred vision. Denies vision changes. Denies eye pain. EARS, NOSE, MOUTH & THROAT: Denies headache. Denies sore throat. Denies ear pain. CARDIOVASCULAR: Denies chest pain. Denies shortness of breath. Denies orthopnea. Denies PND. Denies palpitations. RESPIRATORY: Denies cough. GASTROINTESTINAL: Denies abdominal pain. Denies diarrhea. Denies constipation. Denies nausea. Denies vomiting. MUSCULOSKELETAL: Denies myalgias. INTEGUMENTARY: Denies pruitis. Denies rash. NEUROLOGIC: Denies numbness. Denies tingling. Denies weakness. PSYCHIATRIC: Denies anxiety. Denies depression. ENDOCRINE: Denies fatigue. Denies weight change. Denies polydipsia. Denies polyurina. GENITOURINARY: Denies burning, hematuria or urgency with micturation. HEMATOLOGIC: Denies history of anemia. Denies bleeding. Past Medical History Past Medical History: Asthma, Diabetes Mellitus, GERD/Reflux, Hypertension, Osteoarthritis (OA), Sleep Apnea/CPAP/BIPAP Additional Past Medical History / Comment(s): UMBILICAL HERNIA History of Any Multi-Drug Resistant Organisms: None Reported Past Surgical History: No Surgical Hx Reported Additional Past Surgical History / Comment(s): Umbilical hernia repair, colonoscopy, skin biopsy Past Anesthesia/Blood Transfusion Reactions: No Reported Reaction Past Psychological History: No Psychological Hx Reported Smoking Status: Former smoker Past Alcohol Use History: None Reported Past Drug Use History: None Reported - Past Family History Mother History Unknown: Yes (Mom in her 60s from accident with history of ovary cancer) Family Medical History: No Reported History Father History Unknown: Yes (Disease in his 30s from accident) Brother(s) Family Medical History: No Reported History Sister(s) Family Medical History: No Reported History Daughter(s) Family Medical History: Unable to Obtain (No daughters no sons) Medications and Allergies Home Medications Medication Instructions Recorded Confirmed Type Albuterol Sulfate [Proair Hfa] 1 - 2 puff INHALATION RT-Q6H PRN 05/18/18 History Lisinopril-Hctz 20-25 mg 1 tab PO DAILY 05/18/18 06/05/18 History [Zestoretic 20-25] Loratadine [Claritin] 10 mg PO DAILY 05/18/18 06/05/18 History Montelukast Sodium [Singulair] 10 mg PO DAILY 05/18/18 06/05/18 History predniSONE 10 mg PO DIRECTED 05/18/18 06/05/18 History metFORMIN HCL [metFORMIN HCL ER] 750 mg PO AC-SUPPER 06/05/18 06/05/18 History Allergies Allergy/AdvReac Type Severity Reaction Status Date / Time No Known Allergies Allergy Verified 06/05/18 08:31 Physical Exam Vitals: Vital Signs Temp Pulse Resp BP Pulse Ox 06/05/18 06:24 89 18 95/73 98 06/05/18 03:38 98 F 102 H 18 138/89 95 Intake and Output 06/04/18 06/05/18 06/05/18 22:59 06:59 14:59 Other: Weight 153.314 kg Blood pressure 126/87 heart rate 59 afebrile maintaining oxygens saturation on room air GENERAL: This is a 58-year-old male in no apparent distress at the time of my examination. Morbidly obese. HEENT: Head is atraumatic, normocephalic. Pupils are equal, round. Sclerae anicteric. Conjunctivae are clear. Mucous membranes of the mouth are moist. Neck is supple. There is no jugular venous distention. No carotid bruit is heard. LUNGS: Clear to auscultation no wheezes, rales or rhonchi. No chest wall tenderness is noted on palpation or with deep breathing. HEART: Regular rate and rhythm without murmurs, rubs or gallops. S1 and S2 heard. ABDOMEN: Soft, nontender. Bowel sounds are heard. No organomegaly noted. EXTREMITIES: No evidence of peripheral edema and no calf tenderness noted. VASCULAR: Radial and dorsalis pedis pulses palpated, no evidence of clubbing. NEUROLOGIC: Patient is awake, alert and oriented x3. Results 06/05/18 04:23 06/05/18 04:23 Cardiac Enzymes 06/05/18 06/05/18 06/05/18 Range/Units 04:23 04:23 04:23 WBC 10.0 (3.8-10.6) k/uL RBC 5.25 (4.30-5.90) m/uL Hgb 15.9 (13.0-17.5) gm/dL Hct 47.2 (39.0-53.0) % MCV 89.9 D (80.0-100.0) fL MCH 30.3 (25.0-35.0) pg MCHC 33.7 (31.0-37.0) g/dL RDW 13.1 (11.5-15.5) % Plt Count 261 (150-450) k/uL Neutrophils % 62 % Lymphocytes % 29 % Monocytes % 6 % Eosinophils % 2 % Basophils % 0 % Neutrophils # 6.2 (1.3-7.7) k/uL Lymphocytes # 2.9 (1.0-4.8) k/uL Monocytes # 0.6 (0-1.0) k/uL Eosinophils # 0.2 (0-0.7) k/uL Basophils # 0.0 (0-0.2) k/uL PT (9.0-12.0) sec INR (<1.2) APTT (22.0-30.0) sec D-Dimer (<0.60) mg/L FEU Sodium 138 (137-145) mmol/L Potassium 4.0 (3.5-5.1) mmol/L Chloride 105 (98-107) mmol/L Carbon Dioxide 24 (22-30) mmol/L Anion Gap 9 mmol/L BUN 21 H (9-20) mg/dL Creatinine 0.88 (0.66-1.25) mg/dL Est GFR (CKD-EPI)AfAm >90 (>60 ml/min/1.73 sqM) Est GFR (CKD-EPI)NonAf >90 (>60 ml/min/1.73 sqM) Glucose 101 H (74-99) mg/dL Calcium 9.0 (8.4-10.2) mg/dL Magnesium 1.9 (1.6-2.3) mg/dL Total Bilirubin 0.7 (0.2-1.3) mg/dL AST 15 L (17-59) U/L ALT 18 L (21-72) U/L Alkaline Phosphatase 49 (38-126) U/L Total Creatine Kinase 46 L (55-170) U/L CK-MB (CK-2) 0.8 (0.0-2.4) ng/mL CK-MB (CK-2) Rel Index 1.7 Troponin I <0.012 (0.000-0.034) ng/mL Total Protein 6.1 L (6.3-8.2) g/dL Albumin 3.4 L (3.5-5.0) g/dL Amylase 45 (30-110) U/L Lipase 147 (23-300) U/L 06/05/18 Range/Units 04:23 WBC (3.8-10.6) k/uL RBC (4.30-5.90) m/uL Hgb (13.0-17.5) gm/dL Hct (39.0-53.0) % MCV (80.0-100.0) fL MCH (25.0-35.0) pg MCHC (31.0-37.0) g/dL RDW (11.5-15.5) % Plt Count (150-450) k/uL Neutrophils % % Lymphocytes % % Monocytes % % Eosinophils % % Basophils % % Neutrophils # (1.3-7.7) k/uL Lymphocytes # (1.0-4.8) k/uL Monocytes # (0-1.0) k/uL Eosinophils # (0-0.7) k/uL Basophils # (0-0.2) k/uL PT 9.6 (9.0-12.0) sec INR 1.0 (<1.2) APTT 22.7 (22.0-30.0) sec D-Dimer 1.25 H (<0.60) mg/L FEU Sodium (137-145) mmol/L Potassium (3.5-5.1) mmol/L Chloride (98-107) mmol/L Carbon Dioxide (22-30) mmol/L Anion Gap mmol/L BUN (9-20) mg/dL Creatinine (0.66-1.25) mg/dL Est GFR (CKD-EPI)AfAm (>60 ml/min/1.73 sqM) Est GFR (CKD-EPI)NonAf (>60 ml/min/1.73 sqM) Glucose (74-99) mg/dL Calcium (8.4-10.2) mg/dL Magnesium (1.6-2.3) mg/dL Total Bilirubin (0.2-1.3) mg/dL AST (17-59) U/L ALT (21-72) U/L Alkaline Phosphatase (38-126) U/L Total Creatine Kinase (55-170) U/L CK-MB (CK-2) (0.0-2.4) ng/mL CK-MB (CK-2) Rel Index Troponin I (0.000-0.034) ng/mL Total Protein (6.3-8.2) g/dL Albumin (3.5-5.0) g/dL Amylase (30-110) U/L Lipase (23-300) U/L Coagulation 06/05/18 Range/Units 04:23 PT 9.6 (9.0-12.0) sec APTT 22.7 (22.0-30.0) sec CBC 06/05/18 Range/Units 04:23 WBC 10.0 (3.8-10.6) k/uL RBC 5.25 (4.30-5.90) m/uL Hgb 15.9 (13.0-17.5) gm/dL Hct 47.2 (39.0-53.0) % Plt Count 261 (150-450) k/uL Comprehensive Metabolic Panel 06/05/18 Range/Units 04:23 Sodium 138 (137-145) mmol/L Potassium 4.0 (3.5-5.1) mmol/L Chloride 105 (98-107) mmol/L Carbon Dioxide 24 (22-30) mmol/L BUN 21 H (9-20) mg/dL Creatinine 0.88 (0.66-1.25) mg/dL Glucose 101 H (74-99) mg/dL Calcium 9.0 (8.4-10.2) mg/dL AST 15 L (17-59) U/L ALT 18 L (21-72) U/L Alkaline Phosphatase 49 (38-126) U/L Total Protein 6.1 L (6.3-8.2) g/dL Albumin 3.4 L (3.5-5.0) g/dL Current Medications Generic Name Dose Route Start Last Admin Trade Name Freq PRN Reason Stop Dose Admin Aspirin 325 mg 06/06/18 09:00 Aspirin PO DAILY INGRID Sodium Chloride 1,000 mls @ 20 mls/hr 06/05/18 06:45 Saline 0.9% IV .Q24H INGRID Nitroglycerin 0.4 mg 06/05/18 06:35 Nitrostat SUBLINGUAL Q5M PRN Chest Pain Intake and Output 06/04/18 06/05/18 06/05/18 22:59 06:59 14:59 Other: Weight 153.314 kg 06/05/18 04:23 06/05/18 04:23 Assessment and Plan Assessment: ASSESSMENT Chest pain, atypical. An acute coronary event has been ruled out with no EKG evidence of ischemia and negative cardiac enzymes. Hypertension Dyslipidemia Diabetes mellitus Asthma Morbid obesity, BMI 49.9 PLAN An acute event has been ruled out. Obtain 2D echocardiogram and doppler study to assess cardiac structure and function. Perform stress echocardiogram to assess for stress induced ischemia. Resume home cardiac medications. Add on atorvastatin 40 mg daily and aspirin 81 mg daily. If stress test is normal he is stable from a cardiac perspective. If abnormal we will consider coronary angiography. Lifestyle modifications for weight loss and lowering of cholesterol with diet and exercise. Thank you kindly for this consultation. Nurse Practitioner note has been reviewed, I agree with a documented findings and plan of care. Patient was seen and examined.
[2018-06-05] MEDS ORDERED: ALBUTEROL NEBULIZED 2.5 MG/3 ML INHALATION PRN (12:34)
--- NOTE | 2018-06-05 12:35 | P.HPIM ---
History of Present Illness H&P Date: 06/05/18 58 years old male with a past medical history of asthma state steroid induced hyperglycemia with pending workup for diabetes, GERD, hypertension, osteoarthritis, sleep apnea on CPAP who was recently discharged one week ago after being treated for asthma exacerbation. Patient states since the discharge he has been feeling unwell with increased sweating associated with shortness of breath on exertion with chest discomfort nonradiating on exertion intermittently. Patient saw his primary care physician who set patient up for a stress test that was supposed to be done today but since patient's symptoms worsened he decided to come to the ER EKG the ER suggested no ST or T-wave changes. Troponin 2 negative. Patient was already evaluated by bus and rail operator recommended a stress test. Last stress test was done in 2013 for similar episodes. Patient is admitted to the observation for cardiology workup with possible discharge if negative stress test Review of Systems Constitutional: Denies chills, Denies fever, endorses weakness, Denies poor appetite Eyes: denies decreased vision, denies diplopia, denies discharge, denies pain Ears: deny: decreased hearing Ears, nose, mouth and throat: Denies dental pain, Denies headache, Denies nasal discharge, Denies nose pain Cardiovascular: Endorses chest pain, decreased exercise tolerance, bilateral lower stay with the edema, high blood pressure, shortness of breath Respiratory: Denies congestion, Denies cough, Denies cough with sputum, endorses dyspnea, Denies home oxygen, Denies wheezing Gastrointestinal: Denies abdominal pain, Denies change in bowel habits, Denies coffee ground emesis, Denies early satiety, Denies excessive gas, Denies heartburn, Denies hematemesis, Denies hematochezia, Denies loss of appetite, Denies nausea, Denies vomiting Genitourinary: Denies dysuria, Denies flank pain, Denies kidney stones, Denies menorrhagia, Denies urgency, Denies urinary frequency Musculoskeletal: Denies gait dysfunction, Denies limitation of motion, Denies morning stiffness, Denies muscle cramps Integumentary: Denies rash, Denies wounds, Denies brittle nails, Denies change in hair/nails, Denies darkening of skin Neurological: Denies balance difficulties, Denies change in speech, Denies double vision, Denies gait dysfunction, Denies loss of vision, Denies motor disturbance, Denies numbness, Denies paralysis, Denies paresthesias, Denies seizures Psychiatric: Denies anxiety, Denies depression Endocrine: Denies excessive sweating, Denies excessive thirst, Denies high blood sugars, Denies palpitations Hematologic/Lymphatic: Denies easy bruising, Denies lymphadenopathy Past Medical History Past Medical History: Asthma, Diabetes Mellitus, GERD/Reflux, Hypertension, Osteoarthritis (OA), Sleep Apnea/CPAP/BIPAP Additional Past Medical History / Comment(s): UMBILICAL HERNIA History of Any Multi-Drug Resistant Organisms: None Reported Past Surgical History: No Surgical Hx Reported Additional Past Surgical History / Comment(s): Umbilical hernia repair, colonoscopy, skin biopsy Past Anesthesia/Blood Transfusion Reactions: No Reported Reaction Past Psychological History: No Psychological Hx Reported Smoking Status: Former smoker Past Alcohol Use History: None Reported Past Drug Use History: None Reported - Past Family History Mother History Unknown: Yes (Mom in her 60s from accident with history of ovary cancer) Family Medical History: No Reported History Father History Unknown: Yes (Disease in his 30s from accident) Brother(s) Family Medical History: No Reported History Sister(s) Family Medical History: No Reported History Daughter(s) Family Medical History: Unable to Obtain (No daughters no sons) Medications and Allergies Home Medications Medication Instructions Recorded Confirmed Type Albuterol Sulfate [Proair Hfa] 1 - 2 puff INHALATION RT-Q6H PRN 05/18/18 History Lisinopril-Hctz 20-25 mg 1 tab PO DAILY 05/18/18 06/05/18 History [Zestoretic 20-25] Loratadine [Claritin] 10 mg PO DAILY 05/18/18 06/05/18 History Montelukast Sodium [Singulair] 10 mg PO DAILY 05/18/18 06/05/18 History predniSONE 10 mg PO DIRECTED 05/18/18 06/05/18 History metFORMIN HCL [metFORMIN HCL ER] 750 mg PO AC-SUPPER 06/05/18 06/05/18 History Allergies Allergy/AdvReac Type Severity Reaction Status Date / Time No Known Allergies Allergy Verified 06/05/18 08:31 Physical Exam Vitals: Vital Signs Temp Pulse Pulse Resp BP BP Pulse Ox 06/05/18 11:30 98.0 F 82 18 112/75 98 06/05/18 08:00 97.8 F 88 18 126/87 98 06/05/18 06:24 89 18 95/73 98 06/05/18 03:38 98 F 102 H 18 138/89 95 Intake and Output 06/04/18 06/05/18 06/05/18 22:59 06:59 14:59 Other: Weight 153.314 kg 153.314 kg - Constitutional General appearance: cooperative, no acute distress, obese - EENT Eyes: anicteric sclerae, PERRLA, normal appearance ENT: hearing grossly normal - Neck Neck: no lymphadenopathy, normal ROM, no other, no rigidity, no stridor, no thyromegaly - Respiratory Respiratory: bilateral: CTA, negative: diminished, dullness, rales, rhonchi - Cardiovascular Rhythm: regular Heart sounds: normal: S1, S2 Abnormal Heart Sounds: no systolic murmur, no diastolic murmur, no rub, no S3 Gallop, no S4 Gallop - Gastrointestinal General gastrointestinal: normal bowel sounds, soft, nontender - Integumentary Integumentary: no rash - Neurologic Neurologic: CNII-XII intact - Musculoskeletal Musculoskeletal: gait normal, strength equal bilaterally - Psychiatric Psychiatric: A&O x's 3, appropriate affect Results CBC & Chem 7: 06/05/18 04:23 06/05/18 04:23 Labs: Abnormal Lab Results - Last 24 Hours (Table) 06/05/18 06/05/18 06/05/18 Range/Units 04:23 04:23 04:23 D-Dimer 1.25 H (<0.60) mg/L FEU BUN 21 H (9-20) mg/dL Glucose 101 H (74-99) mg/dL AST 15 L (17-59) U/L ALT 18 L (21-72) U/L Total Creatine Kinase 46 L (55-170) U/L Total Protein 6.1 L (6.3-8.2) g/dL Albumin 3.4 L (3.5-5.0) g/dL Triglycerides (<150) mg/dL Cholesterol (<200) mg/dL LDL Cholesterol, Calc (0-99) mg/dL 06/05/18 Range/Units 09:09 D-Dimer (<0.60) mg/L FEU BUN (9-20) mg/dL Glucose (74-99) mg/dL AST (17-59) U/L ALT (21-72) U/L Total Creatine Kinase (55-170) U/L Total Protein (6.3-8.2) g/dL Albumin (3.5-5.0) g/dL Triglycerides 241 H (<150) mg/dL Cholesterol 252 H (<200) mg/dL LDL Cholesterol, Calc 148 H (0-99) mg/dL Thrombosis Risk Factor Assmnt - DVT/VTE Prophylaxis DVT/VTE Prophylaxis: Pharmacologic Prophylaxis ordered Assessment and Plan Plan: #1 acute chest pain is typical for cardiac based on presentation. Stress test ordered. Echocardiogram ordered EKG normal sinus rhythm continue aspirin 81 mg , Lipitor 40 mg by mouth daily. Other differential include acute gastritis from recent exposure to steroids. We will initiate Patient on Protonix #2 history of moderate persistent asthma recently admitted for asthma exacerbation on May 18. Denies any breathing difficulty no wheezing on examination continue albuterol as needed for shortness of breath continue on Singulair. Continue patient's prednisone #3 obesity with a BMI of 51 at risk for sleep apnea with the probable obesity hypoventilation syndrome. Sleep study pending patient would follow with Dr. Griffith as outpatient #4 hypertension continue lisinopril HCTZ . #5 type 2 diabetes with hyperglycemia secondary to steroid use. Patient on metformin continue on discharge #6 GI prophylaxis withpantoprazole 20 milligrams by mouth daily
[2018-06-05] MEDS: PANTOPRAZOLE 40 MG TABLET PO SCH (14:06)
[2018-06-05] MEDS: predniSONE 10 MG TAB PO SCH (14:07)
--- NOTE | 2018-06-05 14:08 | ECHOF ---
Referral Reason:cp MEASUREMENTS -------- HEIGHT: 175.3 cm WEIGHT: 153.3 kg BP: IVSd: 1.3 cm (0.6 - 1.1) LVIDd: 5.3 cm (3.9 - 5.3) LVPWd: 1.4 cm (0.6 - 1.1) IVSs: 1.8 cm LVIDs: 3.5 cm LVPWs: 1.4 cm LA Diam: 3.2 cm (2.7 - 3.8) Ao Diam: 3.8 cm (2.0 - 3.7) AV Cusp: 2.1 cm (1.5 - 2.6) LA Diam: 3.6 cm (2.7 - 3.8) MV EXCURSION: 16.312 mm (> 18.000) MV EF SLOPE: 100 mm/s (70 - 150) EPSS: 0.2 cm MV E Rian: 0.65 m/s MV DecT: 212 ms MV A Rian: 0.64 m/s MV E/A Ratio: 1.02 RAP: 5.00 mmHg RVSP: 14.73 mmHg FINDINGS -------- Sinus rhythm. Morbid Obesity The left ventricular size is normal. There is moderate concentric left ventricular hypertrophy. O verall left ventricular systolic function is normal with, an EF between 55 - 60 %. The right ventricle is normal in size. The left atrial size is normal. The right atrial size is normal. The aortic valve is trileaflet, and appears structurally normal. No aortic stenosis or regurgitation. Mild mitral regurgitation is present. Mild tricuspid regurgitation present. There is no evidence of pulmonary hypertension. The right v entricular systolic pressure, as measured by Doppler, is 14.73mmHg. The pulmonic valve was not well visualized. The aortic root size is normal. There is no pericardial effusion. CONCLUSIONS -------- 1. Morbid Obesity 2. The left ventricular size is normal. 3. There is moderate concentric left ventricular hypertrophy. 4. Overall left ventricular systolic function is normal with, an EF between 55 - 60 %. 5. The right ventricle is normal in size. 6. The left atrial size is normal. 7. The right atrial size is normal. 8. The aortic valve is trileaflet, and appears structurally normal. No aortic stenosis or regurgitati on. 9. Mild mitral regurgitation is present. 10. Mild tricuspid regurgitation present. 11. There is no evidence of pulmonary hypertension. 12. The right ventricular systolic pressure, as measured by Doppler, is 14.73mmHg. 13. The pulmonic valve was not well visualized. 14. The aortic root size is normal. 15. There is no pericardial effusion. [employer]: Leana Vega RDCS
[2018-06-05 14:30] VITALS: RESP 18
[2018-06-05] MEDS: LISINOPRIL-HCTZ 20-25 MG 1 EACH TAB PO SCH (17:19)
[2018-06-05] MEDS: metFORMIN 500 MG TAB PO SCH (17:19)
[2018-06-05 20:24] LABS: Glucose,Whole Blood 121 mg/dL (75-99)
--- NOTE | 2018-06-05 20:56 | EST ---
EXERCISE STRESS DATE OF SERVICE: 06/05/2018 AGE: 58 SEX: M HT: 5'9" WT: 338 PROTOCOL: Stress Echo STAGE: 2 DURATION OF EXERCISE: 4:22 minutes HEART RATE REST: 91 BLOOD PRESSURE REST: 119/87 MAXIMUM HEART RATE ACHIEVED: 150 MAXIMUM BLOOD PRESSURE: 143/65 85% MPHR: 137 100% MPHR: 161 METS: 5.6 INDICATIONS: Chest pain. CONCLUSION: Baseline EKG revealed normal sinus rhythm without significant ST-T changes. Patient walked on a standard Erasmo protocol for a total duration of 4 minutes 22 seconds, achieved a maximal heart rate of 150 beats per minute which is more than 85% of predicted maximal. He developed fatigue and shortness of breath and therefore stress test was stopped. The resting blood pressure was 119/87. Peak blood pressure was 148/65. EKG did not reveal any ST-segment changes to indicate ischemia. There was no arrhythmia. By EKG criteria, this is a negative stress test without evidence of ischemia by EKG criteria, but exercise capacity was limited and there was no arrhythmia or angina. Baseline echo images revealed normal wall motion, wall thickening of all segments. Definity was used to improve the image quality. At peak exercise, there was good augmentation of left ventricular wall motion and wall thickening of all segments suggesting that there is no evidence of stress-induced ischemia on this study. IMPRESSION: 1. Limited exercise capacity with a negative stress test by EKG criteria. 2. Normal stress echocardiogram. MMODL / KELLIN: [id number] /
[2018-06-06 06:29] LABS: Glucose,Whole Blood 108 mg/dL (75-99)
[2018-06-06] MEDS: LISINOPRIL-HCTZ 20-25 MG 1 EACH TAB PO SCH (07:42)
[2018-06-06] MEDS: metFORMIN 500 MG TAB PO SCH (07:42)
[2018-06-06] MEDS: predniSONE 10 MG TAB PO SCH (07:42)
[2018-06-06] MEDS: PANTOPRAZOLE 40 MG TABLET PO SCH (07:42)
[2018-06-06] MEDS ORDERED: ATORVASTATIN 40 MG TAB PO SCH (09:00)
[2018-06-06] MEDS ORDERED: MONTELUKAST 10 MG TAB PO SCH (09:00)
[2018-06-06] MEDS ORDERED: ASPIRIN 325 MG TAB PO SCH (09:00)
[2018-06-06] MEDS ORDERED: LORATADINE 10 MG TAB PO SCH (09:00)
[2018-06-06] MEDS ORDERED: ASPIRIN 81 MG PO SCH (09:00)
[2018-06-06 11:31] VITALS: BP 122/82; PULSE 94; TEMP 97.9
--- NOTE | 2018-06-06 11:43 | P.DS ---
Providers Date of admission: 06/05/18 06:35 Attending physician: Terell So Consults: 06/05/18 06:35 Consult Physician Routine Consulting Provider: Gregor Wright Consult Reason/Comments: chest pain Do you want consulting provider notified?: Yes Primary care physician: Rodney [place] Course: 58 years old male with a past medical history of asthma state steroid induced hyperglycemia with pending workup for diabetes, GERD, hypertension, osteoarthritis, sleep apnea on CPAP who was recently discharged one week ago after being treated for asthma exacerbation. Patient states since the discharge he has been feeling unwell with increased sweating associated with shortness of breath on exertion with chest discomfort nonradiating on exertion intermittently. Patient saw his primary care physician who set patient up for a stress test that was supposed to be done today but since patient's symptoms worsened he decided to come to the ER EKG the ER suggested no ST or T-wave changes. Troponin 2 negative. Patient was already evaluated by skein yard drier recommended a stress test. Last stress test was done in 2013 for similar episodes. Patient is admitted to the observation for cardiology workup with possible discharge if negative stress test 06/06 patient had stress test yesterday which was negative for acute VA or foreign or valvular abnormality. Patient did have an episode of dub denies loss of movement in his feet which improved by itself no concern for TIA likely secondary to neuropathy. Patient would need aspirin and Lipitor for her hypertriglyceridemia we'll discharge patient on pantoprazole 40 for 30 days for possible gastritis from steroids. Exam - Respiratory Respiratory: bilateral: CTA, negative: diminished, dullness, rales, rhonchi - Cardiovascular Rhythm: regular Heart sounds: normal: S1, S2 Abnormal Heart Sounds: no systolic murmur, no diastolic murmur, no rub, no S3 Gallop, no S4 Gallop - Gastrointestinal General gastrointestinal: normal bowel sounds, soft, nontender Discharge diagnoses #1 acute chest pain atypical, acute VA ruled out ,secondary to gastritis i #2 history of moderate persistent asthma #3 obesity with a BMI of 51 #4 hypertension #5 type 2 diabetes Position home with self-care Patient Condition at Discharge: Fair Plan - Discharge Summary Discharge Rx Participant: No New Discharge Prescriptions: New Aspirin 81 mg PO DAILY chew Atorvastatin [Lipitor] 40 mg PO DAILY #30 tab Pantoprazole [Protonix] 40 mg PO AC-BRKFST #30 tablet.dr Continue Montelukast Sodium [Singulair] 10 mg PO DAILY Loratadine [Claritin] 10 mg PO DAILY Lisinopril-Hctz 20-25 mg [Zestoretic 20-25] 1 tab PO DAILY predniSONE 10 mg PO DIRECTED Albuterol Sulfate [Proair Hfa] 1 - 2 puff INHALATION RT-Q6H PRN PRN Reason: Shortness Of Breath metFORMIN HCL [metFORMIN HCL ER] 750 mg PO AC-SUPPER Discharge Medication List Albuterol Sulfate [Proair Hfa] 1 - 2 puff INHALATION RT-Q6H PRN 05/18/18 [ History] Lisinopril-Hctz 20-25 mg [Zestoretic 20-25] 1 tab PO DAILY 05/18/18 [History] Loratadine [Claritin] 10 mg PO DAILY 05/18/18 [History] Montelukast Sodium [Singulair] 10 mg PO DAILY 05/18/18 [History] predniSONE 10 mg PO DIRECTED 05/18/18 [History] Aspirin 81 mg PO DAILY chew 06/05/18 [Rx] Atorvastatin [Lipitor] 40 mg PO DAILY #30 tab 06/05/18 [Rx] Pantoprazole [Protonix] 40 mg PO AC-BRKFST #30 tablet. 06/05/18 [Rx] metFORMIN HCL [metFORMIN HCL ER] 750 mg PO AC-SUPPER 06/05/18 [History] Follow up Appointment(s)/Referral(s): Rodney Ferreira MD [Primary Care Provider] - 1-2 days Sonny Griffith MD [STAFF PHYSICIAN] - 3 Weeks (The office will call early next week with follow up appointment with Dr. Griffith) Patient Instructions/Handouts: Chest Pain (ED) Discharge Disposition: HOME SELF-CARE
[2018-06-06 15:24] LABS: Hemoglobin A1C 7.1 % (4.0-6.0)
== END 2018-06-06 13:40 | disposition home or self-care (01) ==
LOC: EC 03:34 → 3OBS 06:35
PROVIDERS: ADMIT Internal Medicine Geriatric Medicine; ATTEND Internal Medicine Geriatric Medicine
DX: K29.70 Gastritis, unspecified, without bleeding (principal); E11.65 Type 2 diabetes mellitus with hyperglycemia; E66.01 Morbid (severe) obesity due to excess calories; Z68.43 Body mass index [BMI] 50.0-59.9, adult; E78.1 Pure hyperglyceridemia; E78.5 Hyperlipidemia, unspecified; G47.30 Sleep apnea, unspecified; Z99.89 Dependence on other enabling machines and devices; I10 Essential (primary) hypertension; J45.40 Moderate persistent asthma, uncomplicated; K21.9 Gastro-esophageal reflux disease without esophagitis; T38.0X5A Adverse effect of glucocorticoids and synthetic analogues, initial encounter; Z79.51 Long term (current) use of inhaled steroids; Z87.891 Personal history of nicotine dependence; Z79.899 Other long term (current) drug therapy
CPT/HCPCS: 99285; 36415; 94640; 93005; 93306; 93351; 85379; 83880; 80061; 80053; 82150; 82550; 82553; 83690; 83735; 84484; 85025; 85610; 85730; 83036; 71045; 71275; G0378 ×2; J7512 ×2; Q9967

== ENCOUNTER 2018-06-11 18:29 | Emergency (ER) | payer BC ==
--- NOTE | 2018-06-11 19:43 | ED ---
SOB HPI - General Chief Complaint: Shortness of Breath Stated Complaint: SOB Time Seen by Provider: 06/11/18 18:48 Source: patient, RN notes reviewed Mode of arrival: wheelchair Limitations: no limitations - History of Present Illness Initial Comments: 58-year-old male presents emergency Department chief complaint of chest tightness. Patient states that it started right after taking a baby aspirin that he had to chew. Patient states he was just recently in the hospital for rule out cardiac issues. Patient states that he had an echo, stress test and all was within normal limits. He did have a chest CT which showed no pulmonary embolism though he still concerned about possible blood clot. Patient denies any palpitations, weakness, headache, nausea, diaphoretic episodes. - Related Data Home Medications Medication Instructions Recorded Confirmed Albuterol Sulfate [Proair Hfa] 1 - 2 puff INHALATION RT-Q6H PRN 05/18/18 Lisinopril-Hctz 20-25 mg 1 tab PO DAILY 05/18/18 06/11/18 [Zestoretic 20-25] Loratadine [Claritin] 10 mg PO DAILY 05/18/18 06/11/18 Montelukast Sodium [Singulair] 10 mg PO DAILY 05/18/18 06/11/18 metFORMIN HCL [metFORMIN HCL ER] 750 mg PO AC-SUPPER 06/05/18 06/11/18 Previous Rx's Medication Instructions Recorded Aspirin 81 mg PO DAILY chew 06/05/18 Atorvastatin [Lipitor] 40 mg PO DAILY #30 tab 06/05/18 Pantoprazole [Protonix] 40 mg PO AC-BRKFST #30 tablet. 06/05/18 Azithromycin [Zithromax Z-pack] 0 mg PO DIRECTED #1 pack 06/11/18 Allergies Allergy/AdvReac Type Severity Reaction Status Date / Time No Known Allergies Allergy Verified 06/11/18 19:14 Review of Systems ROS Statement: Those systems with pertinent positive or pertinent negative responses have been documented in the HPI. ROS Other: All systems not noted in ROS Statement are negative. Past Medical History Past Medical History: Asthma, Diabetes Mellitus, Hyperlipidemia, Hypertension, Osteoarthritis (OA) Additional Past Medical History / Comment(s): Pt recently admitted on 05/18/18 with persistent asthma exacerbation thought to be d/t new carpet in home, NIDDM II-pt states hyperglycemia is only when on steroids and that once off, his sugars go back to normal, arthritis R knee, getting set up for a sleep study. History of Any Multi-Drug Resistant Organisms: None Reported Past Surgical History: Hernia Repair Additional Past Surgical History / Comment(s): Umbilical hernia repair Past Anesthesia/Blood Transfusion Reactions: No Reported Reaction, Motion Sickness Past Psychological History: No Psychological Hx Reported Smoking Status: Former smoker - Past Family History Mother History Unknown: Yes (Mom in her 60s from accident with history of ovary cancer) Family Medical History: Cancer Additional Family Medical History / Comment(s): Mother of ovarian cancer at the age of 78yrs. Father History Unknown: Yes (Disease in his 30s from accident) Additional Family Medical History / Comment(s): Father in his 30s of a internal bleed. Brother(s) Family Medical History: No Reported History Sister(s) Family Medical History: No Reported History Daughter(s) Family Medical History: Unable to Obtain General Exam Limitations: no limitations General appearance: alert, in no apparent distress Neck exam: Present: normal inspection, full ROM. Absent: tenderness, meningismus, lymphadenopathy Respiratory exam: Present: normal lung sounds bilaterally. Absent: respiratory distress, wheezes, rales, rhonchi, stridor Cardiovascular Exam: Present: regular rate, normal rhythm, normal heart sounds. Absent: systolic murmur, diastolic murmur, rubs, gallop, clicks GI/Abdominal exam: Present: soft, normal bowel sounds. Absent: distended, tenderness, guarding, rebound, rigid Extremities exam: Absent: normal capillary refill, pedal edema Neurological exam: Present: alert, oriented X3, CN II-XII intact Psychiatric exam: Present: normal affect, normal mood Skin exam: Present: warm, dry, intact, normal color. Absent: rash Course Vital Signs 06/11/18 06/11/18 06/11/18 18:46 19:50 19:56 Temperature 98.6 F Pulse Rate 98 98 Respiratory 20 17 18 Rate Blood Pressure 147/93 139/90 O2 Sat by Pulse 95 96 Oximetry 06/11/18 06/11/18 06/11/18 20:00 20:10 20:20 Temperature Pulse Rate 98 92 94 Respiratory 12 26 H 17 Rate Blood Pressure 139/90 124/73 124/73 O2 Sat by Pulse 94 L Oximetry 06/11/18 06/11/18 06/11/18 20:30 20:40 20:50 Temperature Pulse Rate 92 96 93 Respiratory 20 17 18 Rate Blood Pressure 124/73 131/75 131/75 O2 Sat by Pulse 95 95 95 Oximetry 06/11/18 21:00 Temperature Pulse Rate 88 Respiratory 15 Rate Blood Pressure 131/75 O2 Sat by Pulse 96 Oximetry Medical Decision Making - Medical Decision Making 58-year-old male presents emergency from for chest tightness and shortness of breath. Patient has no evidence of DVT in lower extremity negative CT within last one week. Patient had normal EKG no acute changes troponin is negative. Patient has new left lingula pneumonia. Patient we given Rocephin and azithromycin. - Lab Data Result diagrams: 06/11/18 19:21 06/11/18 19:21 Lab Results 06/11/18 06/11/18 06/11/18 Range/Units 19:21 19:21 19:21 WBC 7.6 (3.8-10.6) k/uL RBC 4.62 (4.30-5.90) m/uL Hgb 14.0 (13.0-17.5) gm/dL Hct 43.2 (39.0-53.0) % MCV 93.4 (80.0-100.0) fL MCH 30.3 (25.0-35.0) pg MCHC 32.5 (31.0-37.0) g/dL RDW 13.3 (11.5-15.5) % Plt Count 284 (150-450) k/uL Neutrophils % 61 % Lymphocytes % 26 % Monocytes % 7 % Eosinophils % 4 % Basophils % 0 % Neutrophils # 4.6 (1.3-7.7) k/uL Lymphocytes # 2.0 (1.0-4.8) k/uL Monocytes # 0.5 (0-1.0) k/uL Eosinophils # 0.3 (0-0.7) k/uL Basophils # 0.0 (0-0.2) k/uL PT (9.0-12.0) sec INR (<1.2) APTT (22.0-30.0) sec Sodium 140 (137-145) mmol/L Potassium 4.3 (3.5-5.1) mmol/L Chloride 108 H (98-107) mmol/L Carbon Dioxide 27 (22-30) mmol/L Anion Gap 5 mmol/L BUN 17 (9-20) mg/dL Creatinine 0.78 (0.66-1.25) mg/dL Est GFR (CKD-EPI)AfAm >90 (>60 ml/min/1.73 sqM) Est GFR (CKD-EPI)NonAf >90 (>60 ml/min/1.73 sqM) Glucose 101 H (74-99) mg/dL Calcium 9.0 (8.4-10.2) mg/dL Magnesium 2.0 (1.6-2.3) mg/dL Total Bilirubin 0.6 (0.2-1.3) mg/dL AST 15 L (17-59) U/L ALT 24 (21-72) U/L Alkaline Phosphatase 46 (38-126) U/L Total Creatine Kinase 89 (55-170) U/L CK-MB (CK-2) 0.9 (0.0-2.4) ng/mL CK-MB (CK-2) Rel Index 1.0 Troponin I <0.012 (0.000-0.034) ng/mL NT-Pro-B Natriuret Pep pg/mL Total Protein 5.9 L (6.3-8.2) g/dL Albumin 3.4 L (3.5-5.0) g/dL 06/11/18 06/11/18 Range/Units 19:21 19:21 WBC (3.8-10.6) k/uL RBC (4.30-5.90) m/uL Hgb (13.0-17.5) gm/dL Hct (39.0-53.0) % MCV (80.0-100.0) fL MCH (25.0-35.0) pg MCHC (31.0-37.0) g/dL RDW (11.5-15.5) % Plt Count (150-450) k/uL Neutrophils % % Lymphocytes % % Monocytes % % Eosinophils % % Basophils % % Neutrophils # (1.3-7.7) k/uL Lymphocytes # (1.0-4.8) k/uL Monocytes # (0-1.0) k/uL Eosinophils # (0-0.7) k/uL Basophils # (0-0.2) k/uL PT 9.4 (9.0-12.0) sec INR 0.9 (<1.2) APTT 22.4 (22.0-30.0) sec Sodium (137-145) mmol/L Potassium (3.5-5.1) mmol/L Chloride (98-107) mmol/L Carbon Dioxide (22-30) mmol/L Anion Gap mmol/L BUN (9-20) mg/dL Creatinine (0.66-1.25) mg/dL Est GFR (CKD-EPI)AfAm (>60 ml/min/1.73 sqM) Est GFR (CKD-EPI)NonAf (>60 ml/min/1.73 sqM) Glucose (74-99) mg/dL Calcium (8.4-10.2) mg/dL Magnesium (1.6-2.3) mg/dL Total Bilirubin (0.2-1.3) mg/dL AST (17-59) U/L ALT (21-72) U/L Alkaline Phosphatase (38-126) U/L Total Creatine Kinase (55-170) U/L CK-MB (CK-2) (0.0-2.4) ng/mL CK-MB (CK-2) Rel Index Troponin I (0.000-0.034) ng/mL NT-Pro-B Natriuret Pep 60 pg/mL Total Protein (6.3-8.2) g/dL Albumin (3.5-5.0) g/dL - EKG Data EKG Comments: EKG performed at 19:33 normal sinus rhythm with rate of 95 SC 162 QRS 96 QTC is QTC 340/427 Disposition Clinical Impression: Pneumonia Disposition: HOME SELF-CARE Condition: Stable Instructions: Bacterial Pneumonia (ED) Additional Instructions: Please return to the Emergency Department if symptoms worsen or any other concerns. Prescriptions: Azithromycin [Zithromax Z-pack] 0 mg PO DIRECTED #1 pack Is patient prescribed a controlled substance at d/c from ED?: No Referrals: Rodney Ferreira MD [Primary Care Provider] - 1-2 days Time of Disposition: 21:54
[2018-06-11 19:59] LABS: Basophils % (A) 0 %; Eosinophils # (A) 0.3 k/uL (0-0.7); Eosinophils % (A) 4 %; HCT 43.2 % (39.0-53.0); Lymphocytes % (A) 26 %; MCH 30.3 pg (25.0-35.0); MCHC 32.5 g/dL (31.0-37.0); MCV 93.4 fL (80.0-100.0); Mean Platelet Volume 6.4; Monocytes # (A) 0.5 k/uL (0-1.0); Monocytes % (A) 7 %; Neutrophils # (A) 4.6 k/uL (1.3-7.7); Neutrophils % (A) 61 %; Platelet Count 284 k/uL (150-450); RBC 4.62 m/uL (4.30-5.90); RDW 13.3 % (11.5-15.5); WBC 7.6 k/uL (3.8-10.6)
[2018-06-11 20:08] LABS: ALT 24 U/L (21-72); AST 15 U/L (17-59); Albumin 3.4 g/dL (3.5-5.0); Alkaline Phosphatase 46 U/L (38-126); Anion Gap 5 mmol/L; Blood Urea Nitrogen 17 mg/dL (9-20); Carbon Dioxide 27 mmol/L (22-30); Chloride 108 mmol/L (98-107); Glucose 101 mg/dL (74-99); Potassium 4.3 mmol/L (3.5-5.1); Sodium 140 mmol/L (137-145); Total Bilirubin 0.6 mg/dL (0.2-1.3); Total Protein 5.9 g/dL (6.3-8.2)
[2018-06-11 20:22] LABS: INR 0.9 (<1.2); Partial Thromboplastin Time 22.4 sec (22.0-30.0); Prothrombin Time 9.4 sec (9.0-12.0)
[2018-06-11 20:25] LABS: Creatine Kinase 89 U/L (55-170)
[2018-06-11 20:39] LABS: Creatine Kinase MB 0.9 ng/mL (0.0-2.4); Troponin I <0.012 ng/mL (0.000-0.034)
--- NOTE | 2018-06-11 20:48 | XR ---
EXAMINATION TYPE: XR chest 2V DATE OF EXAM: 06/11/2018 COMPARISON: 06/05/2018 HISTORY: Difficulty breathing TECHNIQUE: Frontal and lateral views of the chest are obtained. FINDINGS: Heart and mediastinum are normal. There is a possible small infiltrate in the lingula left upper lobe.. There is no heart failure. Bony thorax is intact. IMPRESSION: Possible new lingula infiltrate compared to old exam. Normal heart.
--- NOTE | 2018-06-11 21:30 | US ---
EXAMINATION TYPE: US venous doppler duplex LE DATE OF EXAM: 06/11/2018 9:20 PM COMPARISON: NONE CLINICAL HISTORY: Pain. SIDE PERFORMED: Bilateral TECHNIQUE: The lower extremity deep venous system is examined utilizing real time linear array sonog nava with graded compression, doppler sonography and color-flow sonography. VESSELS IMAGED: External Iliac Vein (EIV) Common Femoral Vein Deep Femoral Vein Greater Saphenous Vein * Femoral Vein Popliteal Vein Small Saphenous Vein * Proximal Calf Veins (* superficial vessels) Right Leg: Left Leg: IMPRESSION: Normal exam. No evidence of deep venous thrombosis in both legs.
[2018-06-11 22:40] VITALS: BP 126/70; PULSE 90; RESP 19; TEMP 98
== END 2018-06-11 22:45 | disposition home or self-care (01) ==
LOC: EC 18:29
DX: J18.9 Pneumonia, unspecified organism (principal); J45.909 Unspecified asthma, uncomplicated; I10 Essential (primary) hypertension; E11.9 Type 2 diabetes mellitus without complications; Z79.84 Long term (current) use of oral hypoglycemic drugs; Z79.899 Other long term (current) drug therapy; Z87.891 Personal history of nicotine dependence
CPT/HCPCS: 36415; 93005; 83880; 80053; 82550; 82553; 83735; 84484; 85025; 85610; 85730; 71046; 93970; 99285; 96365; J0696

== ENCOUNTER 2018-07-11 07:50 | Emergency (ER) | payer BC ==
--- NOTE | 2018-07-11 09:12 | ED ---
Dizziness HPI - General Chief Complaint: Dizziness Stated Complaint: Dizziness/feet swelling up Time Seen by Provider: 07/11/18 08:20 Source: patient, RN notes reviewed Mode of arrival: ambulatory Limitations: no limitations - History of Present Illness Initial Comments: 58-year-old male presents emergency Department chief complaint of dizziness. Patient states he feels lightheaded last couple days. 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 He states he felt that he did not pass out or fall over. Patient also feels that his feet have been more swollen than usual. He is a known diabetic but has no history of CHF. Patient denies chest pain or shortness of breath. Patient denies any current headache he did have a headache other day. Patient denies any focal weakness but states he has generalized lower extremity weakness. Patient denies any low back pain, bowel bladder incontinence or retention. - Related Data Home Medications Medication Instructions Recorded Confirmed Albuterol Sulfate [Proair Hfa] 1 - 2 puff INHALATION RT-Q6H PRN 05/18/18 Lisinopril-Hctz 20-25 mg 1 tab PO DAILY@1300 05/18/18 07/11/18 [Zestoretic 20-25] Loratadine [Claritin] 10 mg PO HS 05/18/18 07/11/18 Montelukast Sodium [Singulair] 10 mg PO HS 05/18/18 07/11/18 Acetaminophen [Tylenol Arthritis] 650 mg PO Q6HR PRN 07/11/18 07/11/18 Albuterol Nebulized [Ventolin 2.5 mg INHALATION RT-Q4H PRN 07/11/18 07/11/18 Nebulized] Garlic 1 tab PO DAILY 07/11/18 07/11/18 Ivor-3 Fatty Acids [Ivor-3] 1,000 mg PO DAILY 07/11/18 07/11/18 Previous Rx's Medication Instructions Recorded Meclizine [Antivert] 25 mg PO TID PRN #15 tab 07/11/18 Allergies Allergy/AdvReac Type Severity Reaction Status Date / Time No Known Allergies Allergy Verified 07/11/18 08:50 Review of Systems ROS Statement: Those systems with pertinent positive or pertinent negative responses have been documented in the HPI. ROS Other: All systems not noted in ROS Statement are negative. Past Medical History Past Medical History: Asthma, Diabetes Mellitus, Hyperlipidemia, Hypertension, Osteoarthritis (OA) Additional Past Medical History / Comment(s): Pt recently admitted on 05/18/18 with persistent asthma exacerbation thought to be d/t new carpet in home, NIDDM II-pt states hyperglycemia is only when on steroids and that once off, his sugars go back to normal, arthritis R knee, getting set up for a sleep study. History of Any Multi-Drug Resistant Organisms: None Reported Past Surgical History: Hernia Repair Additional Past Surgical History / Comment(s): Umbilical hernia repair Past Anesthesia/Blood Transfusion Reactions: No Reported Reaction, Motion Sickness Past Psychological History: No Psychological Hx Reported Smoking Status: Former smoker Past Alcohol Use History: None Reported Past Drug Use History: None Reported - Past Family History Mother History Unknown: Yes (Mom in her 60s from accident with history of ovary cancer) Family Medical History: Cancer Additional Family Medical History / Comment(s): Mother of ovarian cancer at the age of 78yrs. Father History Unknown: Yes (Disease in his 30s from accident) Additional Family Medical History / Comment(s): Father in his 30s of a internal bleed. Brother(s) Family Medical History: No Reported History Sister(s) Family Medical History: No Reported History Daughter(s) Family Medical History: Unable to Obtain General Exam Limitations: no limitations General appearance: alert, in no apparent distress Head exam: Present: atraumatic, normocephalic, normal inspection Eye exam: Present: normal appearance, PERRL, EOMI. Absent: scleral icterus, conjunctival injection, periorbital swelling Neck exam: Present: normal inspection. Absent: tenderness, meningismus, lymphadenopathy Respiratory exam: Present: normal lung sounds bilaterally. Absent: respiratory distress, wheezes, rales, rhonchi, stridor Cardiovascular Exam: Present: regular rate, normal rhythm, normal heart sounds. Absent: systolic murmur, diastolic murmur, rubs, gallop, clicks GI/Abdominal exam: Present: soft, normal bowel sounds. Absent: distended, tenderness, guarding, rebound, rigid Extremities exam: Present: pedal edema (Minimal), other (Pulses equal bilaterally lower extremities full strength of lower extremities equal color equal warmth) Neurological exam: Present: alert, oriented X3, CN II-XII intact, reflexes normal, other (Finger to nose intact bilaterally without overshooting). Absent : motor sensory deficit Skin exam: Present: warm, dry, intact, normal color. Absent: rash Course Vital Signs 07/11/18 08:06 Temperature 98 F Pulse Rate 98 Respiratory 18 Rate Blood Pressure 131/100 O2 Sat by Pulse 96 Oximetry EKG Findings - EKG Comments: EKG Findings:: EKG for a: 10 sinus rhythm with a rate of 91 MD 160 QRS 110 QT/ QTC 360/442 Medical Decision Making - Medical Decision Making 58-year-old male present emergency from for an episode of dizziness. Patient does feel improved at this time. Patient lab work, x-ray, CT, EKG all unremarkable. This most likely is about of vertigo. Patient be discharged with Antivert and return parameters were discussed. - Lab Data Result diagrams: 07/11/18 09:02 07/11/18 09:02 Lab Results 07/11/18 07/11/18 07/11/18 Range/Units 09:02 09:02 09:02 WBC 7.9 (3.8-10.6) k/uL RBC 4.89 (4.30-5.90) m/uL Hgb 15.0 (13.0-17.5) gm/dL Hct 44.8 (39.0-53.0) % MCV 91.6 (80.0-100.0) fL MCH 30.6 (25.0-35.0) pg MCHC 33.5 (31.0-37.0) g/dL RDW 14.0 (11.5-15.5) % Plt Count 314 (150-450) k/uL Neutrophils % 62 % Lymphocytes % 25 % Monocytes % 6 % Eosinophils % 4 % Basophils % 0 % Neutrophils # 4.9 (1.3-7.7) k/uL Lymphocytes # 2.0 (1.0-4.8) k/uL Monocytes # 0.5 (0-1.0) k/uL Eosinophils # 0.3 (0-0.7) k/uL Basophils # 0.0 (0-0.2) k/uL PT (9.0-12.0) sec INR (<1.2) Sodium 139 (137-145) mmol/L Potassium 3.9 (3.5-5.1) mmol/L Chloride 107 (98-107) mmol/L Carbon Dioxide 25 (22-30) mmol/L Anion Gap 7 mmol/L BUN 16 (9-20) mg/dL Creatinine 0.77 (0.66-1.25) mg/dL Est GFR (CKD-EPI)AfAm >90 (>60 ml/min/1.73 sqM) Est GFR (CKD-EPI)NonAf >90 (>60 ml/min/1.73 sqM) Glucose 124 H (74-99) mg/dL Plasma Lactic Acid Jorge 1.1 (0.7-2.0) mmol/L Calcium 9.2 (8.4-10.2) mg/dL Total Bilirubin 0.7 (0.2-1.3) mg/dL AST 18 (17-59) U/L ALT 28 (21-72) U/L Alkaline Phosphatase 49 (38-126) U/L Troponin I (0.000-0.034) ng/mL NT-Pro-B Natriuret Pep pg/mL Total Protein 6.4 (6.3-8.2) g/dL Albumin 3.7 (3.5-5.0) g/dL Urine Color Urine Appearance (Clear) Urine pH (5.0-8.0) Ur Specific [place] (1.001-1.035) Urine Protein (Negative) Urine Glucose (UA) (Negative) Urine Ketones (Negative) Urine Blood (Negative) Urine Nitrite (Negative) Urine Bilirubin (Negative) Urine Urobilinogen (<2.0) mg/dL Ur Leukocyte Esterase (Negative) Urine RBC (0-5) /hpf Urine WBC (0-5) /hpf Hyaline Casts (0-2) /lpf Urine Mucus (None) /hpf 07/11/18 07/11/18 07/11/18 Range/Units 09:02 09:02 09:02 WBC (3.8-10.6) k/uL RBC (4.30-5.90) m/uL Hgb (13.0-17.5) gm/dL Hct (39.0-53.0) % MCV (80.0-100.0) fL MCH (25.0-35.0) pg MCHC (31.0-37.0) g/dL RDW (11.5-15.5) % Plt Count (150-450) k/uL Neutrophils % % Lymphocytes % % Monocytes % % Eosinophils % % Basophils % % Neutrophils # (1.3-7.7) k/uL Lymphocytes # (1.0-4.8) k/uL Monocytes # (0-1.0) k/uL Eosinophils # (0-0.7) k/uL Basophils # (0-0.2) k/uL PT 10.0 (9.0-12.0) sec INR 1.0 (<1.2) Sodium (137-145) mmol/L Potassium (3.5-5.1) mmol/L Chloride (98-107) mmol/L Carbon Dioxide (22-30) mmol/L Anion Gap mmol/L BUN (9-20) mg/dL Creatinine (0.66-1.25) mg/dL Est GFR (CKD-EPI)AfAm (>60 ml/min/1.73 sqM) Est GFR (CKD-EPI)NonAf (>60 ml/min/1.73 sqM) Glucose (74-99) mg/dL Plasma Lactic Acid Jorge (0.7-2.0) mmol/L Calcium (8.4-10.2) mg/dL Total Bilirubin (0.2-1.3) mg/dL AST (17-59) U/L ALT (21-72) U/L Alkaline Phosphatase (38-126) U/L Troponin I <0.012 (0.000-0.034) ng/mL NT-Pro-B Natriuret Pep 21 pg/mL Total Protein (6.3-8.2) g/dL Albumin (3.5-5.0) g/dL Urine Color Urine Appearance (Clear) Urine pH (5.0-8.0) Ur Specific [place] (1.001-1.035) Urine Protein (Negative) Urine Glucose (UA) (Negative) Urine Ketones (Negative) Urine Blood (Negative) Urine Nitrite (Negative) Urine Bilirubin (Negative) Urine Urobilinogen (<2.0) mg/dL Ur Leukocyte Esterase (Negative) Urine RBC (0-5) /hpf Urine WBC (0-5) /hpf Hyaline Casts (0-2) /lpf Urine Mucus (None) /hpf 11/16/18 Range/Units 09:05 WBC (3.8-10.6) k/uL RBC (4.30-5.90) m/uL Hgb (13.0-17.5) gm/dL Hct (39.0-53.0) % MCV (80.0-100.0) fL MCH (25.0-35.0) pg MCHC (31.0-37.0) g/dL RDW (11.5-15.5) % Plt Count (150-450) k/uL Neutrophils % % Lymphocytes % % Monocytes % % Eosinophils % % Basophils % % Neutrophils # (1.3-7.7) k/uL Lymphocytes # (1.0-4.8) k/uL Monocytes # (0-1.0) k/uL Eosinophils # (0-0.7) k/uL Basophils # (0-0.2) k/uL PT (9.0-12.0) sec INR (<1.2) Sodium (137-145) mmol/L Potassium (3.5-5.1) mmol/L Chloride (98-107) mmol/L Carbon Dioxide (22-30) mmol/L Anion Gap mmol/L BUN (9-20) mg/dL Creatinine (0.66-1.25) mg/dL Est GFR (CKD-EPI)AfAm (>60 ml/min/1.73 sqM) Est GFR (CKD-EPI)NonAf (>60 ml/min/1.73 sqM) Glucose (74-99) mg/dL Plasma Lactic Acid Jorge (0.7-2.0) mmol/L Calcium (8.4-10.2) mg/dL Total Bilirubin (0.2-1.3) mg/dL AST (17-59) U/L ALT (21-72) U/L Alkaline Phosphatase (38-126) U/L Troponin I (0.000-0.034) ng/mL NT-Pro-B Natriuret Pep pg/mL Total Protein (6.3-8.2) g/dL Albumin (3.5-5.0) g/dL Urine Color Yellow Urine Appearance Clear (Clear) Urine pH 5.5 (5.0-8.0) Ur Specific [place] 1.025 (1.001-1.035) Urine Protein 1+ H (Negative) Urine Glucose (UA) Negative (Negative) Urine Ketones Negative (Negative) Urine Blood Negative (Negative) Urine Nitrite Negative (Negative) Urine Bilirubin Negative (Negative) Urine Urobilinogen <2.0 (<2.0) mg/dL Ur Leukocyte Esterase Negative (Negative) Urine RBC 1 (0-5) /hpf Urine WBC 1 (0-5) /hpf Hyaline Casts 7 H (0-2) /lpf Urine Mucus Few H (None) /hpf Disposition Clinical Impression: Vertigo Disposition: HOME SELF-CARE Condition: Stable Instructions: Dizziness (ED) Additional Instructions: Please return to the Emergency Department if symptoms worsen or any other concerns. Prescriptions: Meclizine [Antivert] 25 mg PO TID PRN #15 tab PRN Reason: Vertigo Is patient prescribed a controlled substance at d/c from ED?: No Referrals: Rodney Ferreira MD [Primary Care Provider] - 1-2 days Time of Disposition: 11:01
[2018-07-11 09:18] LABS: Basophils % (A) 0 %; Eosinophils # (A) 0.3 k/uL (0-0.7); Eosinophils % (A) 4 %; HCT 44.8 % (39.0-53.0); Lymphocytes % (A) 25 %; MCH 30.6 pg (25.0-35.0); MCHC 33.5 g/dL (31.0-37.0); MCV 91.6 fL (80.0-100.0); Monocytes # (A) 0.5 k/uL (0-1.0); Monocytes % (A) 6 %; Neutrophils # (A) 4.9 k/uL (1.3-7.7); Neutrophils % (A) 62 %; Platelet Count 314 k/uL (150-450); RBC 4.89 m/uL (4.30-5.90); WBC 7.9 k/uL (3.8-10.6)
[2018-07-11 09:29] LABS: ALT 28 U/L (21-72); AST 18 U/L (17-59); Albumin 3.7 g/dL (3.5-5.0); Alkaline Phosphatase 49 U/L (38-126); Anion Gap 7 mmol/L; Blood Urea Nitrogen 16 mg/dL (9-20); Calcium 9.2 mg/dL (8.4-10.2); Carbon Dioxide 25 mmol/L (22-30); Chloride 107 mmol/L (98-107); Glucose 124 mg/dL (74-99); Potassium 3.9 mmol/L (3.5-5.1); Sodium 139 mmol/L (137-145); Total Bilirubin 0.7 mg/dL (0.2-1.3); Total Protein 6.4 g/dL (6.3-8.2)
[2018-07-11 09:36] LABS: Appearance,Urine Clear (Clear); Bilirubin,Urine Negative (Negative); Blood,Urine Negative (Negative); Color,Urine Yellow; Glucose,Urine (UA) Negative (Negative); Hyaline Casts,Urine 7 /lpf (0-2); Ketones,Urine Negative (Negative); Leukocyte Esterase,Urine Negative (Negative); Mucus,Urine Few /hpf; Nitrite,Urine Negative (Negative); PH, Urine 5.5 (5.0-8.0); Protein,Urine 1+ (Negative); RBC,Urine 1 /hpf (0-5); Specific Gravity,Urine 1.025 (1.001-1.035); Urobilinogen,Urine <2.0 mg/dL (<2.0); WBC,Urine 1 /hpf (0-5)
--- NOTE | 2018-07-11 09:37 | CT ---
EXAMINATION TYPE: CT brain wo con DATE OF EXAM: 07/11/2018 HISTORY: Dizziness CT DLP: 1091.4 mGycm. Automated Exposure Control for Dose Reduction was Utilized. TECHNIQUE: CT scan of the head is performed without contrast. COMPARISON: None. FINDINGS: There is no acute intracranial hemorrhage or midline shift identified. There is diffuse v entricular and sulcal prominence consistent with diffuse mild age-related cerebral atrophy. Ortiz-whit e matter differentiation is maintained. Soft tissue density bilateral extra auditory canals is felt t o reflect cerumen. No suspicious opacification bilateral mastoid air cells is seen. The globes are in tact and the visualized sinuses are clear. IMPRESSION: No acute intracranial hemorrhage or midline shift. There is mild diffuse age-related ce rebral atrophy and probable bilateral EAC cerumen.
--- NOTE | 2018-07-11 09:41 | XR ---
EXAMINATION TYPE: XR chest 2V DATE OF EXAM: 07/11/2018 COMPARISON: Chest x-ray June 11, 2018. CT chest June 05, 2018. HISTORY: History of asthma with dizziness TECHNIQUE: Frontal and lateral views of the chest are obtained. FINDINGS: There is no focal air space opacity, pleural effusion, or pneumothorax seen. The cardiac silhouette size is within normal limits. The osseous structures are intact. IMPRESSION: No suspicious acute pulmonary process. No significant change from prior studies.
[2018-07-11] MEDS ORDERED: SODIUM CHLORIDE 0.9% 1,000 ML IV ONE (09:59)
[2018-07-11] MEDS ORDERED: MECLIZINE 12.5 MG TAB PO STA (10:00)
[2018-07-11 11:07] VITALS: BP 118/77
[2018-07-11 11:15] VITALS: PULSE 76; RESP 16
[2018-07-11 11:18] VITALS: TEMP 98
== END 2018-07-11 11:17 | disposition home or self-care (01) ==
LOC: EC 07:50
DX: R42 Dizziness and giddiness (principal); R60.0 Localized edema; R29.898 Other symptoms and signs involving the musculoskeletal system; J45.909 Unspecified asthma, uncomplicated; I10 Essential (primary) hypertension; Z87.891 Personal history of nicotine dependence; Z79.899 Other long term (current) drug therapy
CPT/HCPCS: 36415; 70450; 71046; 80053; 81001; 83605; 83880; 84484; 85025; 85610; 93005; 96360; 99284

== ENCOUNTER 2018-08-10 01:32 | Observation (INO) | payer BC ==
--- NOTE | 2018-08-10 01:49 | ED ---
Dizziness HPI - General Chief Complaint: Dizziness Stated Complaint: Feet swelling/off balance Time Seen by Provider: 08/10/18 01:48 Source: patient Mode of arrival: wheelchair Limitations: physical limitation - History of Present Illness Initial Comments: Joni is a 58-year-old woman who presents to the emergency department today for evaluation of dizziness. Patient reports he had some brief dizziness yesterday but it resolved. Patient reports that this evening he developed recurrent dizziness while driving to work. Patient reports that anytime he stands or turns his head he feels like the room is spinning around him. He also states that he feels somewhat lightheaded and like he just needs to lie down. He reports the spinning sensation is making him nauseated. Patient denies any recent URIs or ringing in his ears. He denies any headache or vision changes though he does state that it's time to have his eyes rechecked for his prescription for his glasses. The patient states he's had symptoms similar to this in the past and was advised he was dehydrated. He has no history of vertigo. - Related Data Home Medications Medication Instructions Recorded Confirmed Albuterol Sulfate [Proair Hfa] 1 - 2 puff INHALATION RT-Q6H PRN 05/18/18 Lisinopril-Hctz 20-25 mg 1 tab PO DAILY@1300 05/18/18 08/10/18 [Zestoretic 20-25] Loratadine [Claritin] 10 mg PO HS 05/18/18 08/10/18 Montelukast Sodium [Singulair] 10 mg PO HS 05/18/18 08/10/18 Albuterol Nebulized [Ventolin 2.5 mg INHALATION RT-Q4H PRN 07/11/18 08/10/18 Nebulized] Allergies Allergy/AdvReac Type Severity Reaction Status Date / Time No Known Allergies Allergy Verified 08/10/18 07:53 Review of Systems ROS Statement: Those systems with pertinent positive or pertinent negative responses have been documented in the HPI. ROS Other: All systems not noted in ROS Statement are negative. Past Medical History Past Medical History: Asthma, Diabetes Mellitus, Hyperlipidemia, Hypertension, Osteoarthritis (OA) Additional Past Medical History / Comment(s): Pt recently admitted on 05/18/18 with persistent asthma exacerbation thought to be d/t new carpet in home, NIDDM II-pt states hyperglycemia is only when on steroids and that once off, his sugars go back to normal, arthritis R knee, getting set up for a sleep study. History of Any Multi-Drug Resistant Organisms: None Reported Past Surgical History: Hernia Repair Additional Past Surgical History / Comment(s): Umbilical hernia repair Past Anesthesia/Blood Transfusion Reactions: No Reported Reaction, Motion Sickness Past Psychological History: No Psychological Hx Reported Smoking Status: Former smoker Past Alcohol Use History: None Reported Past Drug Use History: None Reported - Past Family History Mother History Unknown: Yes (Mom in her 60s from accident with history of ovary cancer) Family Medical History: Cancer Additional Family Medical History / Comment(s): Mother of ovarian cancer at the age of 78yrs. Father History Unknown: Yes (Disease in his 30s from accident) Additional Family Medical History / Comment(s): Father in his 30s of a internal bleed. Brother(s) Family Medical History: No Reported History Sister(s) Family Medical History: No Reported History Daughter(s) Family Medical History: Unable to Obtain General Exam - General Exam Comments Initial Comments: Physical Exam GENERAL: Patient is well-developed and well-nourished. Patient is nontoxic and well-hydrated and is in no distress. HENT: Normocephalic, Atraumatic. Cerumen impaction bilaterally EYES: PERRL, EOMI PULMONARY: Unlabored respirations. No audible rales rhonchi or wheezing was noted. CARDIOVASCULAR: Tachycardic, regular ABDOMEN: Soft and nontender with normal bowel sounds. SKIN: Skin is clear with no lesions or rashes and otherwise unremarkable. : Deferred NEUROLOGIC: Patient is alert and oriented x3. Cranial nerves II through XII grossly intact NIH 0 Moving all extremities spontaneously Head and pulse test reveals horizontal nystagmus with head turning towards the right No persistent nystagmus, no nystagmus at rest MUSCULOSKELETAL: Normal extremities with adequate strength and full range of motion. No lower extremity swelling or edema. No calf tenderness. PSYCHIATRIC: Normal psychiatric evaluation. Limitations: no limitations Limitations: physical limitation Course Vital Signs 08/10/18 08/10/18 08/10/18 01:39 03:06 04:16 Temperature 98.1 F Pulse Rate 101 H 99 71 Respiratory 19 19 18 Rate Blood Pressure 127/82 122/86 121/89 O2 Sat by Pulse 96 98 95 Oximetry 08/10/18 08/10/18 08/10/18 06:27 07:30 08:00 Temperature Pulse Rate 90 86 87 Respiratory 18 18 18 Rate Blood Pressure 119/79 105/61 112/70 O2 Sat by Pulse 94 L 98 98 Oximetry 08/10/18 08/10/18 08:30 09:00 Temperature Pulse Rate 85 Respiratory 20 Rate Blood Pressure 121/81 114/83 O2 Sat by Pulse 99 Oximetry EKG Findings - EKG Comments: EKG Findings:: EKG obtained at 1:56 AM, rate is 100 rhythm is sinus normal axis , normal intervals t elevations or depressions noted evidence of acute ischemia or infarction. Medical Decision Making - Medical Decision Making She was seen and evaluated, history is concerning for benign peripheral vertigo , however patient concerned he may be dehydrated IV access obtain labs obtained IV fluids and meclizine ordered Patient was reevaluated after IV fluids and meclizine, patient now able to turn his head left and right without nystagmus however upon ambulating the patient states he feels unstable and nauseated CT head was ordered CT with no acute findings but patient has persistent vertigo and multiple risk factors for TIA - HTN, HLD, obesity - will plan to admit Patient updated and agreeable Patient care was discussed with Dr. Song who accepts admission request a CT of the head and neck, neurology consult, aspirin, TIA workup, neuro consult Admission orders placed - Lab Data Result diagrams: 08/10/18 02:00 08/10/18 02:00 Lab Results 08/10/18 08/10/18 08/10/18 Range/Units 02:00 02:00 02:00 WBC 8.7 (3.8-10.6) k/uL RBC 5.23 (4.30-5.90) m/uL Hgb 16.3 (13.0-17.5) gm/dL Hct 47.9 (39.0-53.0) % MCV 91.5 (80.0-100.0) fL MCH 31.1 (25.0-35.0) pg MCHC 34.0 (31.0-37.0) g/dL RDW 13.6 (11.5-15.5) % Plt Count 294 (150-450) k/uL Neutrophils % 64 % Lymphocytes % 24 % Monocytes % 7 % Eosinophils % 3 % Basophils % 0 % Neutrophils # 5.6 (1.3-7.7) k/uL Lymphocytes # 2.1 (1.0-4.8) k/uL Monocytes # 0.6 (0-1.0) k/uL Eosinophils # 0.2 (0-0.7) k/uL Basophils # 0.0 (0-0.2) k/uL Sodium 137 (137-145) mmol/L Potassium 4.3 (3.5-5.1) mmol/L Chloride 104 (98-107) mmol/L Carbon Dioxide 24 (22-30) mmol/L Anion Gap 9 mmol/L BUN 21 H (9-20) mg/dL Creatinine 0.75 (0.66-1.25) mg/dL Est GFR (CKD-EPI)AfAm >90 (>60 ml/min/1.73 sqM) Est GFR (CKD-EPI)NonAf >90 (>60 ml/min/1.73 sqM) Glucose 110 H (74-99) mg/dL Calcium 9.3 (8.4-10.2) mg/dL Total Bilirubin 0.7 (0.2-1.3) mg/dL AST 26 (17-59) U/L ALT 25 (21-72) U/L Alkaline Phosphatase 42 (38-126) U/L Troponin I <0.012 (0.000-0.034) ng/mL Total Protein 6.9 (6.3-8.2) g/dL Albumin 4.2 (3.5-5.0) g/dL Disposition Clinical Impression: Vertigo Disposition: ADMITTED IP TO THIS HOSP Referrals: Rodney Ferreira MD [Primary Care Provider] - 1-2 days
[2018-08-10] MEDS ORDERED: SODIUM CHLORIDE 0.9% 1,000 ML IV ONE (02:31)
[2018-08-10] MEDS ORDERED: MECLIZINE 12.5 MG TAB PO STA (02:32)
[2018-08-10 02:46] LABS: Basophils % (A) 0 %; Eosinophils # (A) 0.2 k/uL (0-0.7); Eosinophils % (A) 3 %; HCT 47.9 % (39.0-53.0); HGB 16.3 gm/dL (13.0-17.5); Lymphocytes # (A) 2.1 k/uL (1.0-4.8); Lymphocytes % (A) 24 %; MCH 31.1 pg (25.0-35.0); MCV 91.5 fL (80.0-100.0); Mean Platelet Volume 6.3; Monocytes # (A) 0.6 k/uL (0-1.0); Monocytes % (A) 7 %; Neutrophils # (A) 5.6 k/uL (1.3-7.7); Neutrophils % (A) 64 %; Platelet Count 294 k/uL (150-450); RBC 5.23 m/uL (4.30-5.90); RDW 13.6 % (11.5-15.5); WBC 8.7 k/uL (3.8-10.6)
[2018-08-10 02:55] LABS: ALT 25 U/L (21-72); AST 26 U/L (17-59); Albumin 4.2 g/dL (3.5-5.0); Alkaline Phosphatase 42 U/L (38-126); Anion Gap 9 mmol/L; Blood Urea Nitrogen 21 mg/dL (9-20); Calcium 9.3 mg/dL (8.4-10.2); Carbon Dioxide 24 mmol/L (22-30); Chloride 104 mmol/L (98-107); Glucose 110 mg/dL (74-99); Potassium 4.3 mmol/L (3.5-5.1); Sodium 137 mmol/L (137-145); Total Bilirubin 0.7 mg/dL (0.2-1.3); Total Protein 6.9 g/dL (6.3-8.2)
--- NOTE | 2018-08-10 07:00 | CT ---
EXAM: CT Head Without Intravenous Contrast CLINICAL HISTORY: persistent vertigo after meds TECHNIQUE: Axial computed tomography images of the head/brain without intravenous contrast. CTDI is 49.1 mGy and DLP is 1067.4 mGy-cm. This CT exam was performed using one or more of the following dose reduction techniques: automated exposure control, adjustment of the mA and/or kV according to patient size, and/or use of iterative reconstruction technique. COMPARISON: No relevant prior studies available. FINDINGS: Brain: Unremarkable. No hemorrhage. No significant white matter disease. No edema. Ventricles: Unremarkable. No ventriculomegaly. Bones/joints: Unremarkable. No acute fracture. Soft tissues: Unremarkable. Sinuses: Unremarkable as visualized. No acute sinusitis. Mastoid air cells: Unremarkable as visualized. No mastoid effusion. IMPRESSION: Normal head/brain CT.
[2018-08-10] MEDS ORDERED: ASPIRIN 325 MG TAB PO STA (09:01)
[2018-08-10] MEDS ORDERED: MECLIZINE 25 MG TAB PO PRN (09:05)
[2018-08-10] MEDS ORDERED: SODIUM CHLORIDE 0.9% 1,000 ML IV SCH (09:15)
[2018-08-10] MEDS ORDERED: ALBUTEROL NEBULIZED 2.5 MG/3 ML INHALATION STA (09:58)
--- NOTE | 2018-08-10 10:06 | CT ---
EXAMINATION TYPE: CT angio head neck DATE OF EXAM: 08/10/2018 HISTORY: Dizziness and weakness COMPARISON: CT scan of the brain dated 08/10/2018. CT DLP: 873.1 mGycm. Automated Exposure Control for Dose Reduction was Utilized. TECHNIQUE: CTA scan of the neck is performed with IV Contrast, patient injected with 65 mL of Isovue 370, axial images are obtained, coronal and sagittal reformatted images are reviewed. Three-D recons tructed images are created on an independent workstation and reviewed. FINDINGS: Visualized portions of the lungs are clear. Prevertebral soft tissues are normal. Visualized portions of the paranasal sinuses and mastoids are clear. There is a reversal of the normal cervical lordosis. There is degenerative disc disease and hypertrop hic spondylosis present at virtually all levels. Bony alignment is normal. Atlantoaxial relationships are normal. There is a normal origin of the great vessels. The left vertebral artery is dominant. There is no sig nificant stenosis in either carotid system. There is no significant carotid plaque. CT of the [place] of [place] is within normal limits. Both anterior cerebral arteries are patent. There is normal arborization of the middle cerebral arteries. Both posterior cerebral arteries are patent. No sizable aneurysm is seen. IMPRESSION: 1. NO SIGNIFICANT CAROTID STENOSIS. 2. NORMAL CTA OF THE [place] OF [place]. 3. DEGENERATIVE CHANGES WITHIN THE SPINE.
[2018-08-10 11:04] VITALS: BMI 48.4
[2018-08-10 11:10] VITALS: BP 113/75; PULSE 88; RESP 16; TEMP 97.9
--- NOTE | 2018-08-10 11:31 | P.CONS ---
History of Present Illness - Reason for Consult Consult date: 08/10/18 Vertigo - Chief Complaint Vertigo - History of Present Illness Is a pleasant 58-year-old male being evaluated by the neurology service for some dizziness. Patient stated he had a brief episode 2 days ago but it resolved. He had another episode last evening and reports that upon standing or turning his head he feels that the room is spinning. He does also have some lightheadedness. He reports nausea with this spinning sensation. He denied any recent illness or trauma. He denies any previous history of the symptoms. He has no headaches or vision changes. He's had similar symptoms in the past. He does have a history of asthma but denies respiratory symptoms at this time. However, he did have a recent admission in April for an asthma exacerbation. CT of the brain showed no acute findings. His CTA of the head and neck was unremarkable. In the emergency room after IV fluids and meclizine the patient improved. This time my exam is resting comfortably in bed in no acute distress. He is turning his head quickly and sitting up without recurrence of symptoms. Review of Systems All systems: negative Constitutional: Reports as per HPI Past Medical History Past Medical History: Asthma, Diabetes Mellitus, Hyperlipidemia, Hypertension, Osteoarthritis (OA) Additional Past Medical History / Comment(s): Pt recently admitted on 05/18/18 with persistent asthma exacerbation thought to be d/t new carpet in home, NIDDM II-pt states hyperglycemia is only when on steroids and that once off, his sugars go back to normal, arthritis R knee, getting set up for a sleep study. History of Any Multi-Drug Resistant Organisms: None Reported Past Surgical History: Hernia Repair Additional Past Surgical History / Comment(s): Umbilical hernia repair Past Anesthesia/Blood Transfusion Reactions: No Reported Reaction, Motion Sickness Past Psychological History: No Psychological Hx Reported Additional Psychological History / Comment(s): Pt resides in a home and his brother lives on the other side of this home. He has a glucometer. He has a nebulizer. 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 Father History Unknown: Yes Additional Family Medical History / Comment(s): Father in his 30s of a internal bleed. Brother(s) Family Medical History: No Reported History Sister(s) Family Medical History: No Reported History Daughter(s) Family Medical History: Unable to Obtain Medications and Allergies Home Medications Medication Instructions Recorded Confirmed Type Albuterol Sulfate [Proair Hfa] 1 - 2 puff INHALATION RT-Q6H PRN 05/18/18 History Lisinopril-Hctz 20-25 mg 1 tab PO DAILY@1300 05/18/18 08/10/18 History [Zestoretic 20-25] Loratadine [Claritin] 10 mg PO HS 05/18/18 08/10/18 History Montelukast Sodium [Singulair] 10 mg PO 05/18/18 08/10/18 History Albuterol Nebulized [Ventolin 2.5 mg INHALATION RT-Q4H PRN 07/11/18 08/10/18 History Nebulized] Allergies Allergy/AdvReac Type Severity Reaction Status Date / Time No Known Allergies Allergy Verified 08/10/18 07:53 Physical Exam Vitals: Vital Signs Temp Pulse Pulse Resp BP BP Pulse Ox 08/10/18 10:20 97.9 F 88 16 113/75 92 L 08/10/18 10:13 92 08/10/18 10:02 90 08/10/18 09:45 98.0 F 90 20 128/87 99 08/10/18 09:00 85 20 114/83 99 08/10/18 08:30 121/81 08/10/18 08:00 87 18 112/70 98 08/10/18 07:30 86 18 105/61 98 08/10/18 06:27 90 18 119/79 94 L 08/10/18 04:16 71 18 121/89 95 08/10/18 03:06 99 19 122/86 98 08/10/18 01:39 98.1 F 101 H 19 127/82 96 Intake and Output 08/09/18 08/10/18 08/10/18 22:59 06:59 14:59 Other: Weight 148.778 kg 148.778 kg - Constitutional General appearance: no acute distress, obese - EENT Eyes: no abnormal pupil, EOMI, PERRLA, no ptosis ENT: hearing grossly normal - Neck Neck: normal ROM, no rigidity - Respiratory Respiratory: negative: prolonged expiration, prolonged inspiration - Cardiovascular Rhythm: regular - Gastrointestinal General gastrointestinal: no distended, no tenderness - Neurologic The patient is alert awake and oriented 3. Speech and language are normal. There is no facial asymmetry. Strength is 5 out of 5 in bilateral upper and lower extremities. There is no sensory deficit. No tremors or seizures are seen. Cranial nerves II through XII are intact globally. Results CBC & Chem 7: 08/10/18 02:00 08/10/18 02:00 Labs: Abnormal Lab Results - Last 24 Hours (Table) 08/10/18 Range/Units 02:00 BUN 21 H (9-20) mg/dL Glucose 110 H (74-99) mg/dL Assessment and Plan (1) Asthma Current Visit: Yes Status: Chronic Code(s): J45.909 - UNSPECIFIED ASTHMA, UNCOMPLICATED SNOMED Code(s): 039308466 (2) Hypertension Current Visit: Yes Status: Chronic Code(s): I10 - ESSENTIAL (PRIMARY) HYPERTENSION SNOMED Code(s): 49085846 (3) Hyperlipidemia Current Visit: Yes Status: Chronic Code(s): E78.5 - HYPERLIPIDEMIA, UNSPECIFIED SNOMED Code(s): 80574789 (4) Vertigo Current Visit: Yes Status: Acute Code(s): R42 - DIZZINESS AND GIDDINESS SNOMED Code(s): 355364269 Plan: The patient's symptoms are consistent with benign positional vertigo. He has improved with hydration and meclizine. He may continue meclizine as needed. He has no lateralizing symptoms. Doubt any cerebrovascular etiology. We will see him in an outpatient setting to investigate likely peripheral causes for his vertigo. No further inpatient neurological workup is needed. I have performed a history and physical on the above patient. I have reviewed the above note, and agree.
--- NOTE | 2018-08-10 23:49 | P.HPIM ---
History of Present Illness H&P Date: 08/10/18 This document would serve both an H&P and discharge summary 58 years old male with a past medical history of asthma state steroid induced hyperglycemia with pending workup for diabetes, GERD, hypertension, osteoarthritis, sleep apnea on CPAP who comes into the emergency room secondary to dizziness. Patient has had recurrent symptoms approximately 4 times this year, however this is one of these were symptoms. 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 Patient was admitted in April 2018 for asthma exacerbation, patient does not have any prior history of TIAs in the past. However with concerns regarding his age , and possible diabetes mellitus, the emergency room has opted for him to be observed with neurology consultation. Imaging studies in the emergency room including CT a of the carotid shows normal CTA of the [place], cervica DJD.Nasal sinus and mastoid mastoid are clear, EKG performed include normal sinus rhythm, QTC [address] shows normal brain CT. Patient was seen by neurology, diagnosed to have benign positional vertigo, and was released for discharge home upon their evaluation. Patient would be seen for a referral as an outpatient to see EENT, pending prior authorization from insurance company from his PCP. evaluate peripheral vertigo. Neurology to see as an outpatient. Review of Systems Constitutional: Reports as per HPI, Denies anorexia, Denies chills, Denies chronic headaches, Denies chronic pain, Denies daytime sleepiness, Denies fatigue, Denies fever, Denies lethargy, Denies malaise, Denies night sweats, Denies poor appetite, Denies sweats, Denies weakness, Denies weight gain, Denies weight loss Ears, nose, mouth and throat: Reports as per HPI, Reports vertigo, Denies ant. neck pain, Denies bleeding gums, Denies dental pain, Denies dysphagia, Denies epistaxis, Denies headache, Denies hoarseness, Denies mouth pain, Denies nasal congestion, Denies nasal discharge, Denies neck fullness/pressure, Denies neck lump, Denies nose pain, Denies odynophagia, Denies post-nasal drip, Denies sinus pain, Denies sinus pressure, Denies swelling in mouth, Denies swelling in throat, Denies sore throat, Denies voice changes Cardiovascular: Reports as per HPI, Denies chest pain, Denies claudication, Denies decreased exercise tolerance, Denies dyspnea on exertion, Denies edema, Denies high blood pressure, Denies irregular heart beat, Denies leg edema, Denies lightheadedness, Denies orthopnea, Denies palpitations, Denies paroxysmal nocturnal dyspnea, Denies phlebitis, Denies rapid heart beat, Denies shortness of breath, Denies syncope Respiratory: Reports as per HPI, Denies congestion, Denies cough, Denies cough with sputum, Denies dyspnea, Denies excessive sputum, Denies hemoptysis, Denies home oxygen, Denies pain, Denies pain on inspiration, Denies pleurisy, Denies respiratory infections, Denies sleep apnea, Denies snoring, Denies wheezing Gastrointestinal: Reports as per HPI, Denies abdominal pain, Denies belching, Denies bloating, Denies BRBPR, Denies change in bowel habits, Denies coffee ground emesis, Denies constipation, Denies diarrhea, Denies dyspepsia, Denies early satiety, Denies excessive gas, Denies heartburn, Denies hematemesis, Denies hematochezia, Denies indigestion, Denies jaundice, Denies lactose intolerance, Denies loss of appetite, Denies melena, Denies nausea, Denies vomiting Genitourinary: Reports as per HPI, Denies decreased libido, Denies difficulties fathering child, Denies discharge, Denies dysuria, Denies erectile dysfunction, Denies flank pain, Denies genital pain, Denies genital sores, Denies hematuria, Denies impotence, Denies incontinence, Denies kidney stones, Denies nocturia, Denies polyuria, Denies testicular lump, Denies testicular pain, Denies urinary frequency, Denies urinary hesitancy, Denies urinary retention Musculoskeletal: Reports as per HPI Integumentary: Reports as per HPI Neurological: Reports as per HPI, Reports vertigo, Denies aphasia, Denies ataxia , Denies balance difficulties, Denies burning pain, Denies change in mentation, Denies change in smell/taste, Denies change in speech, Denies confusion, Denies convulsions, Denies double vision, Denies gait dysfunction, Denies head injury, Denies headaches, Denies hearing difficulties, Denies lack of coordination, Denies loss of vision, Denies memory loss, Denies migraines, Denies motor disturbance, Denies numbness, Denies paralysis, Denies paresthesias, Denies seizures, Denies sensory deficit, Denies spasticity, Denies syncope, Denies tic , Denies tingling, Denies transient paralysis, Denies tremors, Denies weakness, Denies visual changes Psychiatric: Reports as per HPI Endocrine: Reports as per HPI Hematologic/Lymphatic: Reports as per HPI Allergic/Immunologic: Reports as per HPI, Denies allergic rhinitis, Denies anaphylaxis, Denies angioedema, Denies gluten intolerance, Denies persistent infections, Denies seasonal allergies, Denies urticaria, Denies wheezing Past Medical History Past Medical History: Asthma, Diabetes Mellitus, Hyperlipidemia, Hypertension, Osteoarthritis (OA) Additional Past Medical History / Comment(s): Pt recently admitted on 05/18/18 with persistent asthma exacerbation thought to be d/t new carpet in home, NIDDM II-pt states hyperglycemia is only when on steroids and that once off, his sugars go back to normal, arthritis R knee, getting set up for a sleep study. History of Any Multi-Drug Resistant Organisms: None Reported Past Surgical History: Hernia Repair Additional Past Surgical History / Comment(s): Umbilical hernia repair Past Anesthesia/Blood Transfusion Reactions: No Reported Reaction, Motion Sickness Past Psychological History: No Psychological Hx Reported Additional Psychological History / Comment(s): Pt resides in a home and his brother lives on the other side of this home. He has a glucometer. He has a nebulizer. 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 Father History Unknown: Yes Additional Family Medical History / Comment(s): Father in his 30s of a internal bleed. Brother(s) Family Medical History: No Reported History Sister(s) Family Medical History: No Reported History Daughter(s) Family Medical History: Unable to Obtain Medications and Allergies Home Medications Medication Instructions Recorded Confirmed Type Albuterol Sulfate [Proair Hfa] 1 - 2 puff INHALATION RT-Q6H PRN 05/18/18 History Lisinopril-Hctz 20-25 mg 1 tab PO DAILY@1300 05/18/18 08/10/18 History [Zestoretic 20-25] Loratadine [Claritin] 10 mg PO HS 05/18/18 08/10/18 History Montelukast Sodium [Singulair] 10 mg PO HS 05/18/18 08/10/18 History Albuterol Nebulized [Ventolin 2.5 mg INHALATION RT-Q4H PRN 07/11/18 08/10/18 History Nebulized] Meclizine [Antivert] 12.5 mg PO Q8HR PRN #30 tablet 08/10/18 Rx predniSONE 40 mg PO DAILY #15 tab 08/10/18 Rx Allergies Allergy/AdvReac Type Severity Reaction Status Date / Time No Known Allergies Allergy Verified 08/10/18 07:53 Physical Exam Vitals: Vital Signs Temp Pulse Pulse Resp BP BP Pulse Ox 08/10/18 10:20 97.9 F 88 16 113/75 92 L 08/10/18 10:13 92 08/10/18 10:02 90 08/10/18 09:45 98.0 F 90 20 128/87 99 08/10/18 09:00 85 20 114/83 99 08/10/18 08:30 121/81 08/10/18 08:00 87 18 112/70 98 08/10/18 07:30 86 18 105/61 98 08/10/18 06:27 90 18 119/79 94 L 08/10/18 04:16 71 18 121/89 95 08/10/18 03:06 99 19 122/86 98 08/10/18 01:39 98.1 F 101 H 19 127/82 96 Intake and Output 08/09/18 08/10/18 08/10/18 22:59 06:59 14:59 Other: Weight 148.778 kg 148.778 kg - Constitutional General appearance: cooperative, no acute distress, obese - EENT Eyes: anicteric sclerae, EOMI, PERRLA, dentition normal, normal appearance ENT: no hard of hearing, hearing grossly normal, NA/AT, normal oropharynx, no other, no pharyngeal erythema, no thrush, no tonsillar exudates, no tonsillar swelling - Neck Neck: normal ROM - Respiratory Respiratory: bilateral: CTA, negative: diminished, dullness, rales, rhonchi - Cardiovascular Rhythm: regular Heart sounds: normal: S1, S2 Abnormal Heart Sounds: no systolic murmur, no diastolic murmur, no rub, no S3 Gallop, no S4 Gallop, no click, no other - Gastrointestinal General gastrointestinal: normal bowel sounds, soft - Integumentary Integumentary: decreased turgor, normal - Neurologic Neurologic: CNII-XII intact - Musculoskeletal Musculoskeletal: gait normal, strength equal bilaterally - Psychiatric Psychiatric: A&O x's 3, appropriate affect, intact judgment & insight Results CBC & Chem 7: 08/10/18 02:00 08/10/18 02:00 Labs: Abnormal Lab Results - Last 24 Hours (Table) 08/10/18 Range/Units 02:00 BUN 21 H (9-20) mg/dL Glucose 110 H (74-99) mg/dL Assessment and Plan Plan: 1. Vertigo most likely secondary to benign positional vertigo, no vasovagal or near syncopal event noted, 4 episodes within the past 1 year, sinus evaluation from CAT scan is normal, mastoid was normal, CTA of the neck was free of any carotid stenosis, CT of the brain is normal. Patient was seen by neurology, released in stable for discharge. Patient will be followed up with them as an outpatient, ENT to see as an outpatient with referral from PCP, meclizine when necessary for dizziness, prednisone 20 mg tabs daily for 5 days not requiring any taper. 2 history of moderate persistent asthma recently admitted for asthma exacerbation on May 18. Denies any breathing difficulty no wheezing on examination continue albuterol as needed for shortness of breath continue on Singulair. Continue patient's prednisone 3 obesity with a BMI of 51 at risk for sleep apnea with the probable obesity hypoventilation syndrome. Sleep study pending patient would follow with Dr. Griffith as outpatient 4 hypertension continue lisinopril HCTZ 20/25. 5 type 2 diabetes with hyperglycemia secondary to steroid use. Patient on metformin continue on discharge 6 GI prophylaxis withpantoprazole 20 milligrams by mouth daily Discharge condition stable and improved, outpatient follow-up with ENT with any of the PCP preference and neurology Dr. Schofield Discharge Medication List Albuterol Sulfate [Proair Hfa] 1 - 2 puff INHALATION RT-Q6H PRN 05/18/18 [ History] Lisinopril-Hctz 20-25 mg [Zestoretic 20-25] 1 tab PO DAILY@1300 05/18/18 [ History] Loratadine [Claritin] 10 mg PO HS 05/18/18 [History] Montelukast Sodium [Singulair] 10 mg PO HS 05/18/18 [History] Albuterol Nebulized [Ventolin Nebulized] 2.5 mg INHALATION RT-Q4H PRN 07/11/18 [ History] Meclizine [Antivert] 12.5 mg PO Q8HR PRN #30 tablet 08/10/18 [Rx] predniSONE 40 mg PO DAILY #15 tab 08/10/18 [Rx]
[2018-08-11] MEDS ORDERED: ASPIRIN 325 MG TAB PO SCH (09:00)
== END 2018-08-10 15:08 | disposition home or self-care (01) ==
LOC: EC 01:32 → 4MS4W 09:01 → 4SSUR 09:16
PROVIDERS: ADMIT Family Medicine; ATTEND Family Medicine
DX: R42 Dizziness and giddiness (principal); H81.10 Benign paroxysmal vertigo, unspecified ear; J45.40 Moderate persistent asthma, uncomplicated; E66.9 Obesity, unspecified; Z68.43 Body mass index [BMI] 50.0-59.9, adult; I10 Essential (primary) hypertension; E11.65 Type 2 diabetes mellitus with hyperglycemia; E78.5 Hyperlipidemia, unspecified; M79.89 Other specified soft tissue disorders; T38.0X5A Adverse effect of glucocorticoids and synthetic analogues, initial encounter; K21.9 Gastro-esophageal reflux disease without esophagitis; Z86.73 Personal history of transient ischemic attack (TIA), and cerebral infarction without residual deficits; M17.11 Unilateral primary osteoarthritis, right knee; Z87.891 Personal history of nicotine dependence; Z80.41 Family history of malignant neoplasm of ovary; Z79.899 Other long term (current) drug therapy
CPT/HCPCS: 96360; 99285; 36415; 93005; 80053; 84484; 85025; 70496; 70450; 70498; G0378; Q9967

== ENCOUNTER 2018-09-03 19:38 | Emergency (ER) | payer BC ==
[2018-09-03 20:05] VITALS: BP 142/88; RESP 18; TEMP 98.2
--- NOTE | 2018-09-03 20:38 | XR ---
EXAMINATION TYPE: XR chest 2V DATE OF EXAM: 09/03/2018 COMPARISON: 07/11/2018 HISTORY: Short of breath TECHNIQUE: Frontal and lateral views of the chest are obtained. FINDINGS: Heart and mediastinum are normal. Lungs are clear. Diaphragm is normal. Bony thorax is int act. Pulmonary vascularity is normal. IMPRESSION: Normal chest. No change.
[2018-09-03] MEDS ORDERED: DEXAMETHASONE 4 MG TAB PO STA (21:28)
[2018-09-03] MEDS ORDERED: IPRATROPIUM 0.5 MG/2.5 ML NEBU INHALATION STA (21:28)
[2018-09-03] MEDS ORDERED: ALBUTEROL NEBULIZED 2.5 MG/3 ML INHALATION STA (21:28)
--- NOTE | 2018-09-03 22:20 | ED ---
General Adult HPI - General Chief complaint: Upper Respiratory Infection Stated complaint: ALEXUS Source: patient Mode of arrival: wheelchair Limitations: no limitations - Related Data Home Medications Medication Instructions Recorded Confirmed Albuterol Sulfate [Proair Hfa] 2 puff INHALATION RT-QID PRN 05/18/18 09/03/18 Lisinopril-Hctz 20-25 mg 1 tab PO HS 05/18/18 09/03/18 [Zestoretic 20-25] Loratadine [Claritin] 10 mg PO HS 05/18/18 09/03/18 Montelukast Sodium [Singulair] 10 mg PO DAILY 05/18/18 09/03/18 Albuterol Nebulized [Ventolin 2.5 mg INHALATION RT-QID PRN 07/11/18 09/03/18 Nebulized] Acetaminophen [Tylenol Arthritis] 650 mg PO Q6H PRN 09/03/18 09/03/18 Petal-3 Fatty Acids [Petal-3] 1,000 mg PO DAILY 09/03/18 09/03/18 metFORMIN HCL [metFORMIN HCL ER] 750 mg PO AC-SUPPER 09/03/18 09/03/18 Previous Rx's Medication Instructions Recorded Meclizine [Antivert] 12.5 mg PO Q8HR PRN #30 tablet 08/10/18 Dexamethasone [Decadron] 12 mg PO ONCE #2 tablet 09/03/18 Allergies Allergy/AdvReac Type Severity Reaction Status Date / Time No Known Allergies Allergy Verified 09/03/18 21:36 Review of Systems ROS Statement: Those systems with pertinent positive or pertinent negative responses have been documented in the HPI. ROS Other: All systems not noted in ROS Statement are negative. Past Medical History Past Medical History: Asthma, Diabetes Mellitus, Hyperlipidemia, Hypertension, Osteoarthritis (OA) Additional Past Medical History / Comment(s): Pt recently admitted on 05/18/18 with persistent asthma exacerbation thought to be d/t new carpet in home, NIDDM II-pt states hyperglycemia is only when on steroids and that once off, his sugars go back to normal, arthritis R knee, getting set up for a sleep study. History of Any Multi-Drug Resistant Organisms: None Reported Past Surgical History: Hernia Repair Additional Past Surgical History / Comment(s): Umbilical hernia repair Past Anesthesia/Blood Transfusion Reactions: No Reported Reaction, Motion Sickness Past Psychological History: No Psychological Hx Reported Smoking Status: Former smoker Past Alcohol Use History: None Reported Past Drug Use History: None Reported - Past Family History Mother History Unknown: Yes Family Medical History: Cancer Additional Family Medical History / Comment(s): Mother of ovarian cancer at the age of 78yrs. Father History Unknown: Yes Additional Family Medical History / Comment(s): Father in his 30s of a internal bleed. Brother(s) Family Medical History: No Reported History Sister(s) Family Medical History: No Reported History Daughter(s) Family Medical History: Unable to Obtain General Exam Limitations: no limitations Course Vital Signs 09/03/18 09/03/18 09/03/18 20:01 21:45 22:03 Temperature 98.2 F Pulse Rate 101 H 101 H 100 Respiratory 18 Rate Blood Pressure 142/88 O2 Sat by Pulse 95 Oximetry 09/03/18 09/03/18 22:22 22:43 Temperature Pulse Rate 110 H 112 H Respiratory Rate Blood Pressure O2 Sat by Pulse Oximetry Medical Decision Making - Medical Decision Making Dictation was produced using [employer] dictation software. please excuse any grammatical, word or spelling errors. Chief Complaint:-year-old male past medical history asthma presents with dyspnea. History of Present Illness: 58-year-old male. He states he didn't suffer neuritis-type symptoms for the past 2-3 days. He states his symptoms started with a scratchy throat. He does have history of asthma. He has albuterol inhaler at home. Patient denies ever having being intubated in past for asthma. Patient demies any chest pain symptoms. The ROS documented in this emergency department record has been reviewed and confirmed by me. Those systems with pertinent positive or negative responses have been documented in the HPI. All other systems are other negative and/or noncontributory. PHYSICAL EXAM: General Impression: Alert and oriented x3, not in acute distress HEENT: Normocephalic atraumatic, extra-ocular movements intact, pupils equal and reactive to light bilaterally, mucous membranes moist. Cardiovascular: Heart regular rate and rhythm, S1&S2 audible, no murmurs, rubs or gallops Chest: Diffuse end expiratory and inspiratory wheezing. Abdomen: Bowel sounds present, abdomen soft, non-tender, non-distended, no organomegaly Musculoskeletal: Pulses present and equal in all extremities, no peripheral edema Motor: Power 5/5 bilaterally, no focal deficits noted Neurological: CN II-XII grossly intact, no focal motor or sensory deficits noted Skin: Intact with no visualized rashes Psych: Normal affect and mood ED course:-year-old male clinical presentation consistent with asthma exacerbation. Patient given breathing treatments, by mouth steroids. Vital signs upon arrival shows findings within acceptable limits. Patient hypoxic. No signs of respiratory distress. Patient given breathing treatments. Is reevaluated after first breathing treatment improved symptoms. Patient feels well. Patient given another small breathing treatment. Patient clear for discharge. Given prescription for corticosteroids to be taken in 40-72 hours. Patient told to give himself albuterol inhaler treatments every 4 hours for the next 2 days. Patient otherwise clear for discharge. Disposition Clinical Impression: Asthma exacerbation Disposition: HOME SELF-CARE Condition: Good Instructions: Asthma (ED) Prescriptions: Dexamethasone [Decadron] 12 mg PO ONCE #2 tablet Is patient prescribed a controlled substance at d/c from ED?: No Referrals: Rodney Ferreira MD [Primary Care Provider] - 1-2 days Time of Disposition: 22:57
[2018-09-03 22:43] VITALS: PULSE 112
[2018-09-03] MEDS ORDERED: IPRATROPIUM-ALBUTEROL 3 ML NEB INHALATION STA (22:54)
== END 2018-09-03 23:19 | disposition home or self-care (01) ==
LOC: EC 19:38
DX: J45.901 Unspecified asthma with (acute) exacerbation (principal); R09.02 Hypoxemia; E11.9 Type 2 diabetes mellitus without complications; I10 Essential (primary) hypertension; M19.90 Unspecified osteoarthritis, unspecified site; Z87.891 Personal history of nicotine dependence; Z98.890 Other specified postprocedural states; Z79.84 Long term (current) use of oral hypoglycemic drugs; Z79.899 Other long term (current) drug therapy
CPT/HCPCS: 94644; 71046; 99285; J8540

== ENCOUNTER 2018-10-30 15:20 | Emergency (ER) | payer BC ==
[2018-10-30] MEDS ORDERED: SODIUM CHLORIDE 0.9% 1,000 ML IV ONE (15:30)
[2018-10-30 16:21] LABS: Basophils % (A) 0 %; Eosinophils # (A) 0.3 k/uL (0-0.7); Eosinophils % (A) 6 %; HCT 47.2 % (39.0-53.0); HGB 15.6 gm/dL (13.0-17.5); Lymphocytes # (A) 1.6 k/uL (1.0-4.8); Lymphocytes % (A) 27 %; MCH 30.7 pg (25.0-35.0); MCHC 33.1 g/dL (31.0-37.0); MCV 92.8 fL (80.0-100.0); Mean Platelet Volume 6.3; Monocytes # (A) 0.4 k/uL (0-1.0); Monocytes % (A) 6 %; Neutrophils # (A) 3.4 k/uL (1.3-7.7); Neutrophils % (A) 59 %; Platelet Count 236 k/uL (150-450); RBC 5.08 m/uL (4.30-5.90); RDW 13.1 % (11.5-15.5); WBC 5.8 k/uL (3.8-10.6)
[2018-10-30 16:33] LABS: ALT 25 U/L (21-72); AST 15 U/L (17-59); Albumin 3.9 g/dL (3.5-5.0); Alkaline Phosphatase 50 U/L (38-126); Amylase 34 U/L (30-110); Anion Gap 6 mmol/L; Blood Urea Nitrogen 17 mg/dL (9-20); Calcium 9.1 mg/dL (8.4-10.2); Carbon Dioxide 25 mmol/L (22-30); Chloride 107 mmol/L (98-107); Glucose 126 mg/dL (74-99); Lipase 82 U/L (23-300); Potassium 4.1 mmol/L (3.5-5.1); Sodium 138 mmol/L (137-145); Total Bilirubin 0.8 mg/dL (0.2-1.3); Total Protein 6.5 g/dL (6.3-8.2)
[2018-10-30 16:47] LABS: Appearance,Urine Clear (Clear); Bilirubin,Urine Negative (Negative); Blood,Urine Negative (Negative); Color,Urine Yellow; Glucose,Urine (UA) Negative (Negative); Ketones,Urine Negative (Negative); Leukocyte Esterase,Urine Negative (Negative); Nitrite,Urine Negative (Negative); PH, Urine 6.5 (5.0-8.0); Protein,Urine Negative (Negative); Specific Gravity,Urine 1.019 (1.001-1.035); Urobilinogen,Urine <2.0 mg/dL (<2.0)
--- NOTE | 2018-10-30 17:16 | CT ---
EXAMINATION TYPE: CT abdomen pelvis w con DATE OF EXAM: 10/30/2018 COMPARISON: None HISTORY: Right lower quadrant pain x today. CT DLP: 2389.9 mGycm Automated exposure control for dose reduction was used. TECHNIQUE: Helical acquisition of images was performed from the lung bases through the pelvis. CONTRAST: Performed without Oral Contrast and with IV Contrast, patient injected with 100 mL of Isovue 300. FINDINGS: Lung bases are clear of infiltrate. There is no pleural effusion. There is no pericardial effusion. H eart size is normal. Stomach appears normal. Liver spleen pancreas gallbladder appear normal. Bile ducts are not dilated. There is no adrenal mass. Kidneys have normal size and contour. There is 4 mm calculus interpolar rig ht kidney. There is no hydronephrosis. Ureters are not dilated. There is no retroperitoneal adenopath y. There is no ascites. Bladder distends smoothly. There is no evidence of a pelvic mass. There is no inguinal hernia. There is 1 cm cortical cyst lateral left kidney. There is no mesenteric edema. There is no sign of free air. There is no intestinal wall thickening. A ppendix appears normal. I see no bony destructive process. Lumbar spine is intact. There is no lumbar compression fracture. IMPRESSION: NONOBSTRUCTING RIGHT RENAL CALCULUS. NORMAL APPENDIX. NO SIGN OF ACUTE ABDOMEN AND PELVIS.
[2018-10-30] MEDS ORDERED: ZIPRASIDONE 20 MG VIAL IM STA (17:24)
--- NOTE | 2018-10-30 17:25 | ED ---
Abdominal Pain HPI - General Chief Complaint: Abdominal Pain Stated Complaint: Abd pain Time Seen by Provider: 10/30/18 15:30 Source: patient Mode of arrival: ambulatory Limitations: no limitations - History of Present Illness Initial Comments: 58-year-old male presenting today for chief complaint of right lower abdominal pain x 1 day. 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 Patient states it is a sharp pain in the right lower quadrant. Patient denies any radiation. Patient denies any testicular pain or swelling. Admits to mild nausea. Patient states when pain persisted he became concerned about appendicitis and presented for evaluation. Remaining review of systems negative, patient denies any recent fever, chills, shortness of breath, chest pain, back pain, abdominal pain, vomiting, numbness or tingling, dysuria or hematuria, constipation or diarrhea, headaches or visual changes, or any other complaints.shows any recent travel. Patient has a sick contacts. - Related Data Home Medications Medication Instructions Recorded Confirmed Albuterol Sulfate [Proair Hfa] 2 puff INHALATION RT-QID PRN 05/18/18 10/30/18 Montelukast Sodium [Singulair] 10 mg PO DAILY 05/18/18 10/30/18 Albuterol Nebulized [Ventolin 2.5 mg INHALATION RT-QID PRN 07/11/18 10/30/18 Nebulized] [place]-3 Fatty Acids [[place]-3] 1,000 mg PO DAILY 09/03/18 10/30/18 metFORMIN HCL [metFORMIN HCL ER] 750 mg PO AC-SUPPER 09/03/18 10/30/18 Lisinopril 20 mg PO DAILY@1700 10/30/18 10/30/18 Previous Rx's Medication Instructions Recorded Azithromycin [Zithromax Z-pack] 0 mg PO DIRECTED #6 tab 10/30/18 Allergies Allergy/AdvReac Type Severity Reaction Status Date / Time No Known Allergies Allergy Verified 10/30/18 15:58 Review of Systems ROS Statement: Those systems with pertinent positive or pertinent negative responses have been documented in the HPI. ROS Other: All systems not noted in ROS Statement are negative. Past Medical History Past Medical History: Asthma, Diabetes Mellitus, Hyperlipidemia, Hypertension, Osteoarthritis (OA) Additional Past Medical History / Comment(s): Pt recently admitted on 05/18/18 with persistent asthma exacerbation thought to be d/t new carpet in home, NIDDM II-pt states hyperglycemia is only when on steroids and that once off, his sugars go back to normal, arthritis R knee, getting set up for a sleep study. History of Any Multi-Drug Resistant Organisms: None Reported Past Surgical History: Hernia Repair Additional Past Surgical History / Comment(s): Umbilical hernia repair Past Anesthesia/Blood Transfusion Reactions: No Reported Reaction, Motion Sickness Past Psychological History: No Psychological Hx Reported Smoking Status: Former smoker Past Alcohol Use History: None Reported Past Drug Use History: None Reported - Past Family History Mother History Unknown: Yes Family Medical History: Cancer Additional Family Medical History / Comment(s): Mother of ovarian cancer at the age of 78yrs. Father History Unknown: Yes Additional Family Medical History / Comment(s): Father in his 30s of a internal bleed. Brother(s) Family Medical History: No Reported History Sister(s) Family Medical History: No Reported History Daughter(s) Family Medical History: Unable to Obtain General Exam - General Exam Comments Initial Comments: General: The patient is awake and alert, in no distress, and does not appear acutely ill. Eye: Pupils are equal, round and reactive to light, extra-ocular movements are intact. No nystagmus. There is normal conjunctiva bilaterally. No signs of icterus. Ears, nose, mouth and throat: There are moist mucous membranes and no oral lesions. Neck: The neck is supple, there is no tenderness or JVD. Cardiovascular: There is a regular rate and rhythm. No murmur, rub or gallop is appreciated. Respiratory: Lungs are clear to auscultation, respirations are non-labored, breath sounds are equal. No wheezes, stridor, rales, or rhonchi. Gastrointestinal: No noted diaphoresis, jaundice, pallor, protecting postures or squirming. Symmetrical pigmentation of abdomen without signs of inflammation.. Umbilicus mildline, inverted without swelling. No dilated veins. Abdomen contour obese, no noted abdominal distention. No visible masses. No peristalsis, aortic pulsations, or ventral hernia. Bowel sounds audible in all 4 quadrants, unremarkable.Mild tenderness to palpation of right lower abdomen, no rigidity, guarding, protective posturing. Liver edge, not palpable. Spleen edge, right and left kidney not palpable. Superior bladder margin non-tender. Special Testing: Negative Bristow, Rovsing, McBurney, Lolly, cutaneous hyperesthesia. IN egative Heel Jar test. No CVA tenderness. Digital rectal exam deferred. Negative roberto turners or cullens sign Musculoskeletal: Normal ROM, no tenderness. Strength 5/5. Sensation intact. DP pulses equal bilaterally 2+. Neurological: A&O x 3. CN II-XII intact, There are no obvious motor or sensory deficits. Coordination appears grossly intact. Speech is normal. Skin: Skin is warm and dry and no rashes or lesions are noted. Psychiatric: Cooperative, appropriate mood & affect, normal judgment. Limitations: no limitations Course Vital Signs 10/30/18 10/30/18 15:21 17:31 Temperature 98.3 F 98.0 F Pulse Rate 101 H 82 Respiratory 18 16 Rate Blood Pressure 139/85 129/82 O2 Sat by Pulse 94 L 96 Oximetry Medical Decision Making - Medical Decision Making well-appearing 58yo male presenting today for cc of right lower abdominal pain. No peritoneal signs on examination. CT negative for acute process. Patient has no other concerning history. Laboratory studies unremarkable.at this time is unclear the etiology of abdominal pain. I gave patient strict return parameters for any worsening or persistent pain. Patient verbalized understanding. Patient states he is comfortable discharge. Patient is discharged to condition appearing well to questions at this time. Discussed the case with attending provider who is agreeable patient's discharge. - Lab Data Result diagrams: 10/30/18 16:10 10/30/18 16:10 Lab Results 10/30/18 10/30/18 10/30/18 Range/Units 16:10 16:10 16:10 WBC 5.8 (3.8-10.6) k/uL RBC 5.08 (4.30-5.90) m/uL Hgb 15.6 (13.0-17.5) gm/dL Hct 47.2 (39.0-53.0) % MCV 92.8 (80.0-100.0) fL MCH 30.7 (25.0-35.0) pg MCHC 33.1 (31.0-37.0) g/dL RDW 13.1 (11.5-15.5) % Plt Count 236 (150-450) k/uL Neutrophils % 59 % Lymphocytes % 27 % Monocytes % 6 % Eosinophils % 6 % Basophils % 0 % Neutrophils # 3.4 (1.3-7.7) k/uL Lymphocytes # 1.6 (1.0-4.8) k/uL Monocytes # 0.4 (0-1.0) k/uL Eosinophils # 0.3 (0-0.7) k/uL Basophils # 0.0 (0-0.2) k/uL Sodium 138 (137-145) mmol/L Potassium 4.1 (3.5-5.1) mmol/L Chloride 107 (98-107) mmol/L Carbon Dioxide 25 (22-30) mmol/L Anion Gap 6 mmol/L BUN 17 (9-20) mg/dL Creatinine 0.70 (0.66-1.25) mg/dL Est GFR (CKD-EPI)AfAm >90 (>60 ml/min/1.73 sqM) Est GFR (CKD-EPI)NonAf >90 (>60 ml/min/1.73 sqM) Glucose 126 H (74-99) mg/dL Calcium 9.1 (8.4-10.2) mg/dL Total Bilirubin 0.8 (0.2-1.3) mg/dL AST 15 L (17-59) U/L ALT 25 (21-72) U/L Alkaline Phosphatase 50 (38-126) U/L Troponin I <0.012 (0.000-0.034) ng/mL Total Protein 6.5 (6.3-8.2) g/dL Albumin 3.9 (3.5-5.0) g/dL Amylase 34 (30-110) U/L Lipase 82 (23-300) U/L Urine Color Urine Appearance (Clear) Urine pH (5.0-8.0) Ur Specific [place] (1.001-1.035) Urine Protein (Negative) Urine Glucose (UA) (Negative) Urine Ketones (Negative) Urine Blood (Negative) Urine Nitrite (Negative) Urine Bilirubin (Negative) Urine Urobilinogen (<2.0) mg/dL Ur Leukocyte Esterase (Negative) 10/30/18 Range/Units 16:36 WBC (3.8-10.6) k/uL RBC (4.30-5.90) m/uL Hgb (13.0-17.5) gm/dL Hct (39.0-53.0) % MCV (80.0-100.0) fL MCH (25.0-35.0) pg MCHC (31.0-37.0) g/dL RDW (11.5-15.5) % Plt Count (150-450) k/uL Neutrophils % % Lymphocytes % % Monocytes % % Eosinophils % % Basophils % % Neutrophils # (1.3-7.7) k/uL Lymphocytes # (1.0-4.8) k/uL Monocytes # (0-1.0) k/uL Eosinophils # (0-0.7) k/uL Basophils # (0-0.2) k/uL Sodium (137-145) mmol/L Potassium (3.5-5.1) mmol/L Chloride (98-107) mmol/L Carbon Dioxide (22-30) mmol/L Anion Gap mmol/L BUN (9-20) mg/dL Creatinine (0.66-1.25) mg/dL Est GFR (CKD-EPI)AfAm (>60 ml/min/1.73 sqM) Est GFR (CKD-EPI)NonAf (>60 ml/min/1.73 sqM) Glucose (74-99) mg/dL Calcium (8.4-10.2) mg/dL Total Bilirubin (0.2-1.3) mg/dL AST (17-59) U/L ALT (21-72) U/L Alkaline Phosphatase (38-126) U/L Troponin I (0.000-0.034) ng/mL Total Protein (6.3-8.2) g/dL Albumin (3.5-5.0) g/dL Amylase (30-110) U/L Lipase (23-300) U/L Urine Color Yellow Urine Appearance Clear (Clear) Urine pH 6.5 (5.0-8.0) Ur Specific [place] 1.019 (1.001-1.035) Urine Protein Negative (Negative) Urine Glucose (UA) Negative (Negative) Urine Ketones Negative (Negative) Urine Blood Negative (Negative) Urine Nitrite Negative (Negative) Urine Bilirubin Negative (Negative) Urine Urobilinogen <2.0 (<2.0) mg/dL Ur Leukocyte Esterase Negative (Negative) Disposition Clinical Impression: Abdominal pain, Renal calculi, Upper respiratory infection Disposition: HOME SELF-CARE Condition: Good Instructions (If sedation given, give patient instructions): Abdominal Pain (ED) Additional Instructions: Please use medication as discussed. Please follow-up with family doctor in the next 2 days of symptoms have not improved. Please return to emergency room if the symptoms increase or worsen or for any other concerns. Prescriptions: Azithromycin [Zithromax Z-pack] 0 mg PO DIRECTED #6 tab Is patient prescribed a controlled substance at d/c from ED?: No Referrals: Rodney Ferreira MD [Primary Care Provider] - 1-2 days Time of Disposition: 17:25
[2018-10-30 17:32] VITALS: BP 129/82; PULSE 82; RESP 16; TEMP 98
== END 2018-10-30 17:35 | disposition home or self-care (01) ==
LOC: EC 15:20
DX: N20.0 Calculus of kidney (principal); J06.9 Acute upper respiratory infection, unspecified; J45.909 Unspecified asthma, uncomplicated; E11.9 Type 2 diabetes mellitus without complications; I10 Essential (primary) hypertension; Z87.891 Personal history of nicotine dependence; Z79.84 Long term (current) use of oral hypoglycemic drugs; Z79.899 Other long term (current) drug therapy; Z53.8 Procedure and treatment not carried out for other reasons
CPT/HCPCS: 36415; 80053; 82150; 83690; 84484; 85025; 81003; 74177; 99284; 96360; Q9967

== ENCOUNTER 2018-11-30 09:43 | Emergency (ER) | payer BC ==
[2018-11-30] MEDS ORDERED: IPRATROPIUM 0.5 MG/2.5 ML NEBU INHALATION STA (10:08)
[2018-11-30] MEDS ORDERED: ALBUTEROL NEBULIZED (CONC) 5 MG, SODIUM CHLORIDE 0.9% NEBULIZ 3 ML INHALATION STA ×2 (10:08)
--- NOTE | 2018-11-30 10:12 | ED ---
General Adult HPI - General Chief complaint: Shortness of Breath Stated complaint: ALEXUS, Heart Fluttering Time Seen by Provider: 11/30/18 09:50 Source: patient, RN notes reviewed Mode of arrival: wheelchair Limitations: no limitations - History of Present Illness Initial comments: This is a 58-year-old male who presents to the emergency department with a past medical history significant for asthma. Patient states he was recently treated for bronchitis with Zithromax. Patient states lately she's been taking his breathing treatments more often when he does he notices a fluttering in his chest. Patient denies any chest pain or tightness. Patient denies any palpitations. Patient denies any fever or chills. Patient denies any abdominal pain patient denies nausea vomiting diarrhea. Patient denies headache patient denies numbness weakness. Patient denies lightheadedness dizziness. Patient denies any swelling to the legs or calf tenderness. - Related Data Home Medications Medication Instructions Recorded Confirmed Albuterol Sulfate [Proair Hfa] 2 puff INHALATION RT-QID PRN 05/18/18 10/30/18 Montelukast Sodium [Singulair] 10 mg PO DAILY 05/18/18 10/30/18 Albuterol Nebulized [Ventolin 2.5 mg INHALATION RT-QID PRN 07/11/18 10/30/18 Nebulized] [place]-3 Fatty Acids [[place]-3] 1,000 mg PO DAILY 09/03/18 10/30/18 metFORMIN HCL [metFORMIN HCL ER] 750 mg PO AC-SUPPER 09/03/18 10/30/18 Lisinopril 20 mg PO DAILY@1700 10/30/18 10/30/18 Previous Rx's Medication Instructions Recorded Azithromycin [Zithromax Z-pack] 0 mg PO DIRECTED #6 tab 10/30/18 predniSONE 40 mg PO DAILY #8 tab 11/30/18 Allergies Allergy/AdvReac Type Severity Reaction Status Date / Time No Known Allergies Allergy Verified 11/30/18 09:54 Review of Systems ROS Statement: Those systems with pertinent positive or pertinent negative responses have been documented in the HPI. ROS Other: All systems not noted in ROS Statement are negative. Past Medical History Past Medical History: Asthma, Diabetes Mellitus, Hyperlipidemia, Hypertension, Osteoarthritis (OA) Additional Past Medical History / Comment(s): Pt recently admitted on 05/18/18 with persistent asthma exacerbation thought to be d/t new carpet in home, NIDDM II-pt states hyperglycemia is only when on steroids and that once off, his sugars go back to normal, arthritis R knee, getting set up for a sleep study. History of Any Multi-Drug Resistant Organisms: None Reported Past Surgical History: Hernia Repair Additional Past Surgical History / Comment(s): Umbilical hernia repair Past Anesthesia/Blood Transfusion Reactions: No Reported Reaction, Motion Sickness Past Psychological History: No Psychological Hx Reported Smoking Status: Former smoker Past Alcohol Use History: None Reported Past Drug Use History: None Reported - Past Family History Mother History Unknown: Yes Family Medical History: Cancer Additional Family Medical History / Comment(s): Mother of ovarian cancer at the age of 78yrs. Father History Unknown: Yes Additional Family Medical History / Comment(s): Father in his 30s of a internal bleed. Brother(s) Family Medical History: No Reported History Sister(s) Family Medical History: No Reported History Daughter(s) Family Medical History: Unable to Obtain General Exam - General Exam Comments Initial Comments: GENERAL: Patient is well-developed and well-nourished. Patient is nontoxic and well-hy drated and is in mild distress. ENT: Neck is soft and supple. No significant lymphadenopathy is noted. Oropharynx is clear. Moist mucous membranes. Neck has full range of motion without eliciting any pain. EYES: The sclera were anicteric and conjunctiva were pink and moist. Extraocular movements were intact and pupils were equal round and reactive to light. Eyelids were unremarkable. PULMONARY: Unlabored respirations. Good breath sounds bilaterally. No audible rales rhonchi or wheezing was noted. CARDIOVASCULAR: There is a regular rate and rhythm without any murmurs gallops or rubs. ABDOMEN: Soft and nontender with normal bowel sounds. SKIN: Skin is clear with no lesions or rashes and otherwise unremarkable. NEUROLOGIC: Patient is alert and oriented x3. Cranial nerves II through XII are grossly intact. Motor and sensory are also intact. Normal speech, volume and content. Symmetrical smile. MUSCULOSKELETAL: Normal extremities with adequate strength and full range of motion. LYMPHATICS: No significant lymphadenopathy is noted PSYCHIATRIC: Normal psychiatric evaluation. Limitations: no limitations Course Vital Signs 11/30/18 11/30/18 11/30/18 09:52 10:41 10:51 Temperature 98.7 F Pulse Rate 95 92 94 Respiratory 20 Rate Blood Pressure 142/92 O2 Sat by Pulse 96 Oximetry 11/30/18 11/30/18 11/30/18 10:52 11:05 12:33 Temperature Pulse Rate 98 98 100 Respiratory Rate Blood Pressure O2 Sat by Pulse Oximetry 11/30/18 12:43 Temperature Pulse Rate 96 Respiratory Rate Blood Pressure O2 Sat by Pulse Oximetry Medical Decision Making - Medical Decision Making EKG shows normal sinus rhythm at 85 bpm LA interval 166 QRS is 94 QT interval 366 QTC is 435. Patient's EKG shows no ST segment elevation or depression. Chest x-ray shows no acute abnormality. Patient received 2 breathing treatments with Atrovent I will back and listened to he was feeling better and sounded better but he still has extra wheezing. I gave the patient a third breathing treatment and went back and reevaluated the patient he was clear of all wheezing and stated he felt back to his baseline. Critical Care Time Critical Care Time: Yes Total Critical Care Time: 35 Disposition Clinical Impression: Asthma with status asthmaticus Disposition: HOME SELF-CARE Instructions (If sedation given, give patient instructions): Asthma (ED) Prescriptions: predniSONE 40 mg PO DAILY #8 tab Is patient prescribed a controlled substance at d/c from ED?: No Referrals: Rodney Ferreira MD [Primary Care Provider] - 1-2 days Time of Disposition: 13:08
--- NOTE | 2018-11-30 11:49 | XR ---
EXAMINATION TYPE: XR chest 2V DATE OF EXAM: 11/30/2018 HISTORY: Difficulty breathing . REFERENCE: Previous study dated 09/03/2018. FINDINGS: The lungs remain clear. Pleural space are clear. The heart is not enlarged. There may be mi ld overinflation of the lungs. IMPRESSION: NO ACTIVE INTRATHORACIC ABNORMALITY.
[2018-11-30] MEDS ORDERED: predniSONE 50 MG TAB PO STA (12:17)
[2018-11-30] MEDS ORDERED: IPRATROPIUM-ALBUTEROL 3 ML NEB INHALATION STA (12:19)
[2018-11-30 17:48] VITALS: BP 136/87; PULSE 87; RESP 18; TEMP 98.6
== END 2018-11-30 13:20 | disposition home or self-care (01) ==
LOC: EC 09:43
DX: J45.902 Unspecified asthma with status asthmaticus (principal); E11.9 Type 2 diabetes mellitus without complications; I10 Essential (primary) hypertension; Z79.84 Long term (current) use of oral hypoglycemic drugs; Z79.899 Other long term (current) drug therapy; Z87.891 Personal history of nicotine dependence
CPT/HCPCS: 94640 ×2; 93005; 71046; 99285; J7512

== ENCOUNTER 2018-12-28 18:32 | Emergency (ER) | payer BC ==
[2018-12-28 18:36] VITALS: TEMP 98.9
[2018-12-28] MEDS ORDERED: methylPREDNISolone SOD SUCCI 125 MG/2 ML VIAL IV STA (18:49)
[2018-12-28] MEDS ORDERED: IPRATROPIUM-ALBUTEROL 3 ML NEB INHALATION STA (18:49)
--- NOTE | 2018-12-28 18:51 | ED ---
SOB HPI - General Chief Complaint: Shortness of Breath Stated Complaint: ALEXUS Time Seen by Provider: 12/28/18 18:39 Source: patient Mode of arrival: ambulatory Limitations: no limitations - History of Present Illness Initial Comments: Patient is a 58-year-old male presenting for shortness of breath. The patient states that he has a known history of asthma for the last month, he has been having difficulty breathing. He states that he has been coughing but there is not been any sputum coming up. He has been trying albuterol and it helps for a couple hours but then the shortness of breath comes back. He denies any fevers or chills. He also denies any chest pain or nausea/vomiting/diarrhea or lower extremity edema. - Related Data Home Medications Medication Instructions Recorded Confirmed Albuterol Sulfate [Proair Hfa] 2 puff INHALATION RT-QID PRN 05/18/18 12/28/18 Montelukast Sodium [Singulair] 10 mg PO DAILY 05/18/18 12/28/18 Albuterol Nebulized [Ventolin 2.5 mg INHALATION RT-QID PRN 07/11/18 12/28/18 Nebulized] [place]-3 Fatty Acids [[place]-3] 1,000 mg PO DAILY 09/03/18 12/28/18 metFORMIN HCL [metFORMIN HCL ER] 750 mg PO AC-SUPPER 09/03/18 12/28/18 Lisinopril 20 mg PO DAILY@1700 10/30/18 12/28/18 Multivitamins, Thera [Multivitamin 1 tab PO DAILY 12/28/18 12/28/18 (formulary)] Previous Rx's Medication Instructions Recorded Azithromycin [Zithromax] 0 mg PO DIRECTED #6 tab 12/28/18 predniSONE 50 mg PO DAILY #5 tablet 12/28/18 Allergies Allergy/AdvReac Type Severity Reaction Status Date / Time No Known Allergies Allergy Verified 12/28/18 19:50 Review of Systems ROS Statement: Those systems with pertinent positive or pertinent negative responses have been documented in the HPI. Constitutional: Negative for chills, fatigue and fever. HENT: Negative for congestion. Respiratory: Positive for chest tightness, shortness of breath and wheezing. Positive for cough Cardiovascular: Negative for chest pain and palpitations. Gastrointestinal: Negative for abdominal pain. Negative for abdominal distention, diarrhea, nausea and vomiting. Genitourinary: Negative for dysuria. Musculoskeletal: Negative for back pain, neck pain and neck stiffness. Skin: Negative for color change. Neurological: Negative for dizziness, speech difficulty, weakness and light- headedness. Psychiatric/Behavioral: Negative for agitation and confusion. Negative for anxiety ROS Other: All systems not noted in ROS Statement are negative. Past Medical History Past Medical History: Asthma, Diabetes Mellitus, Hyperlipidemia, Hypertension, Osteoarthritis (OA) Additional Past Medical History / Comment(s): Pt recently admitted on 05/18/18 with persistent asthma exacerbation thought to be d/t new carpet in home, NIDDM II-pt states hyperglycemia is only when on steroids and that once off, his sugars go back to normal, arthritis R knee, getting set up for a sleep study. History of Any Multi-Drug Resistant Organisms: None Reported Past Surgical History: Hernia Repair Additional Past Surgical History / Comment(s): Umbilical hernia repair Past Anesthesia/Blood Transfusion Reactions: No Reported Reaction, Motion Sickness Past Psychological History: No Psychological Hx Reported Smoking Status: Former smoker Past Alcohol Use History: None Reported Past Drug Use History: None Reported - Past Family History Mother History Unknown: Yes Family Medical History: Cancer Additional Family Medical History / Comment(s): Mother of ovarian cancer at the age of 78yrs. Father History Unknown: Yes Additional Family Medical History / Comment(s): Father in his 30s of a in ternal bleed. Brother(s) Family Medical History: No Reported History Sister(s) Family Medical History: No Reported History Daughter(s) Family Medical History: Unable to Obtain General Exam - General Exam Comments Initial Comments: Constitutional: Pt appears well-developed and well-nourished. No distress. Head: Normocephalic and atraumatic. Eyes: EOM are normal. Neck: Normal range of motion. Neck supple. Cardiovascular: Normal rate, regular rhythm, S1 normal, S2 normal and normal heart sounds. Exam reveals no gallop and no friction rub. No murmur heard. Pulmonary/Chest: Effort normal and breath sounds normal. No tachypnea and no bradypnea. No respiratory distress. There are diffuse wheezes in all lung babb Abdominal: Soft. Bowel sounds are normal. Pt exhibits no shifting dullness, no distension, no pulsatile liver, no fluid wave, no abdominal bruit and no ascites. There is no rigidity, no rebound, no guarding, no tenderness at McBurney's point and negative Mason's sign. There is no tenderness. Musculoskeletal: Normal range of motion. Neurological: Pt is alert and oriented to person, place, and time. No cranial nerve deficit. Skin: Skin is warm and dry. No rash noted. Pt is not diaphoretic. No erythema. No pallor. Psychiatric: Pt has a normal mood and affect. Pt behavior is normal. Thought content normal. Limitations: no limitations Course Vital Signs 12/28/18 12/28/18 12/28/18 18:33 19:05 19:15 Temperature 98.9 F Pulse Rate 96 92 87 Respiratory 22 Rate Blood Pressure 167/105 O2 Sat by Pulse 96 Oximetry 12/28/18 12/28/18 12/28/18 19:59 20:01 20:47 Temperature 98.9 F Pulse Rate 86 89 Respiratory 18 18 18 Rate Blood Pressure 129/83 146/97 O2 Sat by Pulse 97 96 Oximetry Medical Decision Making - Medical Decision Making Laboratory studies showed that there was no significant leukocytosis, electrolyte derangements and from a cardiac standpoint, EKG had no emergent pathology findings and troponin was negative. BNP was also not elevated and chest x-ray was negative for infiltrate.It was explained that while there does not appear to be an emergent process, the etiology of the symptoms are still unclear but possibly related to bronchitis and may need further workup as an outpatient if symptoms continue. Nonetheless, patient was given breathing treatments as well as steroids and stated that symptoms were significantly improved. Patient was also given prescription for prednisone as well as azithromycin as pneumonia could not be completely excluded. Explained all labs and diagnostic test results and that we will discharge the patient home and patient is to follow up with PCP in 1-2 days and return to the ED if symptoms worsen. Pt is agreeable to plan. - Lab Data Result diagrams: 12/28/18 19:12/28/18 19: Lab Results 12/28/18 12/28/18 12/28/18 Range/Units 19: 19: 19: WBC 6.5 (3.8-10.6) k/uL RBC 4.98 (4.30-5.90) m/uL Hgb 15.3 (13.0-17.5) gm/dL Hct 46.2 (39.0-53.0) % MCV 92.8 (80.0-100.0) fL MCH 30.8 (25.0-35.0) pg MCHC 33.2 (31.0-37.0) g/dL RDW 13.9 (11.5-15.5) % Plt Count 310 (150-450) k/uL Neutrophils % 57 % Lymphocytes % 28 % Monocytes % 7 % Eosinophils % 5 % Basophils % 1 % Neutrophils # 3.7 (1.3-7.7) k/uL Lymphocytes # 1.8 (1.0-4.8) k/uL Monocytes # 0.4 (0-1.0) k/uL Eosinophils # 0.3 (0-0.7) k/uL Basophils # 0.1 (0-0.2) k/uL PT (9.0-12.0) sec INR (<1.2) APTT (22.0-30.0) sec Sodium 139 (137-145) mmol/L Potassium 4.3 (3.5-5.1) mmol/L Chloride 107 (98-107) mmol/L Carbon Dioxide 25 (22-30) mmol/L Anion Gap 7 mmol/L BUN 15 (9-20) mg/dL Creatinine 0.72 (0.66-1.25) mg/dL Est GFR (CKD-EPI)AfAm >90 (>60 ml/min/1.73 sqM) Est GFR (CKD-EPI)NonAf >90 (>60 ml/min/1.73 sqM) Glucose 111 H (74-99) mg/dL Calcium 9.4 (8.4-10.2) mg/dL Magnesium 1.8 (1.6-2.3) mg/dL Total Bilirubin 0.8 (0.2-1.3) mg/dL AST 17 (17-59) U/L ALT 23 (21-72) U/L Alkaline Phosphatase 52 (38-126) U/L Troponin I (0.000-0.034) ng/mL NT-Pro-B Natriuret Pep 16 pg/mL Total Protein 6.6 (6.3-8.2) g/dL Albumin 4.0 (3.5-5.0) g/dL 12/28/18 12/28/18 Range/Units 19:02 19:02 WBC (3.8-10.6) k/uL RBC (4.30-5.90) m/uL Hgb (13.0-17.5) gm/dL Hct (39.0-53.0) % MCV (80.0-100.0) fL MCH (25.0-35.0) pg MCHC (31.0-37.0) g/dL RDW (11.5-15.5) % Plt Count (150-450) k/uL Neutrophils % % Lymphocytes % % Monocytes % % Eosinophils % % Basophils % % Neutrophils # (1.3-7.7) k/uL Lymphocytes # (1.0-4.8) k/uL Monocytes # (0-1.0) k/uL Eosinophils # (0-0.7) k/uL Basophils # (0-0.2) k/uL PT 9.5 (9.0-12.0) sec INR 0.9 (<1.2) APTT 24.6 (22.0-30.0) sec Sodium (137-145) mmol/L Potassium (3.5-5.1) mmol/L Chloride (98-107) mmol/L Carbon Dioxide (22-30) mmol/L Anion Gap mmol/L BUN (9-20) mg/dL Creatinine (0.66-1.25) mg/dL Est GFR (CKD-EPI)AfAm (>60 ml/min/1.73 sqM) Est GFR (CKD-EPI)NonAf (>60 ml/min/1.73 sqM) Glucose (74-99) mg/dL Calcium (8.4-10.2) mg/dL Magnesium (1.6-2.3) mg/dL Total Bilirubin (0.2-1.3) mg/dL AST (17-59) U/L ALT (21-72) U/L Alkaline Phosphatase (38-126) U/L Troponin I <0.012 (0.000-0.034) ng/mL NT-Pro-B Natriuret Pep pg/mL Total Protein (6.3-8.2) g/dL Albumin (3.5-5.0) g/dL - EKG Data EKG Comments: EKG shows normal sinus rhythm with a rate of 84 bpm, AR interval 178, QRS 104, QTC 432. There is no significant ST depressions or elevations. Disposition Clinical Impression: Bronchitis Disposition: HOME SELF-CARE Condition: Good Instructions (If sedation given, give patient instructions): Acute Bronchitis (ED) Prescriptions: predniSONE 50 mg PO DAILY #5 tablet Azithromycin [Zithromax] 0 mg PO DIRECTED #6 tab Is patient prescribed a controlled substance at d/c from ED?: No Referrals: Rodney Ferreira MD [Primary Care Provider] - 1-2 days Time of Disposition: 20:11
[2018-12-28 19:23] LABS: Basophils # (A) 0.1 k/uL (0-0.2); Basophils % (A) 1 %; Eosinophils # (A) 0.3 k/uL (0-0.7); Eosinophils % (A) 5 %; HCT 46.2 % (39.0-53.0); HGB 15.3 gm/dL (13.0-17.5); Lymphocytes # (A) 1.8 k/uL (1.0-4.8); Lymphocytes % (A) 28 %; MCH 30.8 pg (25.0-35.0); MCHC 33.2 g/dL (31.0-37.0); MCV 92.8 fL (80.0-100.0); Mean Platelet Volume 5.9; Monocytes # (A) 0.4 k/uL (0-1.0); Monocytes % (A) 7 %; Neutrophils # (A) 3.7 k/uL (1.3-7.7); Neutrophils % (A) 57 %; Platelet Count 310 k/uL (150-450); RBC 4.98 m/uL (4.30-5.90); RDW 13.9 % (11.5-15.5); WBC 6.5 k/uL (3.8-10.6)
[2018-12-28 19:34] LABS: INR 0.9 (<1.2); Partial Thromboplastin Time 24.6 sec (22.0-30.0); Prothrombin Time 9.5 sec (9.0-12.0)
--- NOTE | 2018-12-28 19:36 | XR ---
EXAMINATION TYPE: XR chest 2V DATE OF EXAM: 12/28/2018 COMPARISON: 11/30/2018 HISTORY: Short of breath TECHNIQUE: Frontal and lateral views of the chest are obtained. FINDINGS: Heart and mediastinum are normal. Lungs are clear. Diaphragm is normal. Bony thorax is int act. IMPRESSION: Normal chest. No change.
[2018-12-28 19:42] LABS: ALT 23 U/L (21-72); AST 17 U/L (17-59); Alkaline Phosphatase 52 U/L (38-126); Anion Gap 7 mmol/L; Blood Urea Nitrogen 15 mg/dL (9-20); Calcium 9.4 mg/dL (8.4-10.2); Carbon Dioxide 25 mmol/L (22-30); Chloride 107 mmol/L (98-107); Glucose 111 mg/dL (74-99); Magnesium 1.8 mg/dL (1.6-2.3); Potassium 4.3 mmol/L (3.5-5.1); Sodium 139 mmol/L (137-145); Total Bilirubin 0.8 mg/dL (0.2-1.3); Total Protein 6.6 g/dL (6.3-8.2)
[2018-12-28 20:01] VITALS: RESP 18
[2018-12-28 20:49] VITALS: BP 146/97; PULSE 89
== END 2018-12-28 20:47 | disposition home or self-care (01) ==
LOC: EC 18:32
DX: J45.909 Unspecified asthma, uncomplicated (principal); E11.9 Type 2 diabetes mellitus without complications; I10 Essential (primary) hypertension; Z87.891 Personal history of nicotine dependence; Z79.84 Long term (current) use of oral hypoglycemic drugs; Z79.899 Other long term (current) drug therapy
CPT/HCPCS: 36415; 94640; 93005; 83880; 80053; 83735; 84484; 85025; 85610; 85730; 71046; 99285; 96374; J2930

== ENCOUNTER 2019-01-05 07:54 | Emergency (ER) | payer BC ==
[2019-01-05] MEDS ORDERED: KETOROLAC 30 MG/ML 1 ML VIAL IVP STA (08:08)
[2019-01-05] MEDS ORDERED: SODIUM CHLORIDE 0.9% 1,000 ML IV STA (08:08)
--- NOTE | 2019-01-05 08:11 | ED ---
Abdominal Pain HPI - General Chief Complaint: Abdominal Pain Stated Complaint: Abd.pain Time Seen by Provider: 01/05/19 08:04 Source: patient, RN notes reviewed Mode of arrival: wheelchair Limitations: no limitations - History of Present Illness Initial Comments: This is a 58-year-old male history of asthma and diabetes hypertension who states she's been feeling constipated today and yesterday he had a small bowel movement yesterday he complains some left lower quadrant abdominal pain this associated with nausea he states pain is dull 5-6/10 severity. It does not seem to radiate anywhere is had no fevers chills sweats cough phlegm production no p roblems with his asthma he states no dysuria hematuria. No issues with appendicitis or gallbladder disease no other modifying factors MD Complaint: abdominal pain - Related Data Home Medications Medication Instructions Recorded Confirmed Albuterol Sulfate [Proair Hfa] 2 puff INHALATION RT-QID PRN 05/18/18 01/05/19 Montelukast Sodium [Singulair] 10 mg PO DAILY 05/18/18 01/05/19 Albuterol Nebulized [Ventolin 2.5 mg INHALATION RT-QID PRN 07/11/18 01/05/19 Nebulized] [place]-3 Fatty Acids [[place]-3] 1,000 mg PO DAILY 09/03/18 01/05/19 metFORMIN HCL [metFORMIN HCL ER] 750 mg PO AC-SUPPER 09/03/18 01/05/19 Lisinopril 20 mg PO DAILY@1700 10/30/18 01/05/19 Multivitamins, Thera [Multivitamin 1 tab PO DAILY 12/28/18 01/05/19 (formulary)] Allergies Allergy/AdvReac Type Severity Reaction Status Date / Time No Known Allergies Allergy Verified 01/05/19 08:37 Review of Systems ROS Statement: Those systems with pertinent positive or pertinent negative responses have been documented in the HPI. ROS Other: All systems not noted in ROS Statement are negative. Past Medical History Past Medical History: Asthma, Diabetes Mellitus, Hyperlipidemia, Hypertension, Osteoarthritis (OA) Additional Past Medical History / Comment(s): Pt recently admitted on 05/18/18 with persistent asthma exacerbation thought to be d/t new carpet in home, NIDDM II-pt states hyperglycemia is only when on steroids and that once off, his sugars go back to normal, arthritis R knee, getting set up for a sleep study. History of Any Multi-Drug Resistant Organisms: None Reported Past Surgical History: Hernia Repair Additional Past Surgical History / Comment(s): Umbilical hernia repair Past Anesthesia/Blood Transfusion Reactions: No Reported Reaction, Motion Sickness Past Psychological History: No Psychological Hx Reported Smoking Status: Former smoker Past Alcohol Use History: None Reported Past Drug Use History: None Reported - Past Family History Mother History Unknown: Yes Family Medical History: Cancer Additional Family Medical History / Comment(s): Mother of ovarian cancer at the age of 78yrs. Father History Unknown: Yes Additional Family Medical History / Comment(s): Father in his 30s of a internal bleed. Brother(s) Family Medical History: No Reported History Sister(s) Family Medical History: No Reported History Daughter(s) Family Medical History: Unable to Obtain General Exam - General Exam Comments Initial Comments: This is a well-developed well-nourished awake alert oriented 3 male Limitations: no limitations General appearance: alert, anxious Head exam: Present: atraumatic, normocephalic, normal inspection Eye exam: Present: normal appearance, PERRL, EOMI. Absent: scleral icterus, conjunctival injection, periorbital swelling ENT exam: Present: normal exam, mucous membranes moist Neck exam: Present: normal inspection. Absent: tenderness, meningismus, lymphadenopathy Respiratory exam: Present: normal lung sounds bilaterally. Absent: respiratory distress, wheezes, rales, rhonchi, stridor Cardiovascular Exam: Present: regular rate, normal rhythm, normal heart sounds. Absent: systolic murmur, diastolic murmur, rubs, gallop, clicks GI/Abdominal exam: Present: soft, tenderness (Obese abdomen some tenderness to the left lower quadrant no guarding or rebound masses or bruits), normal bowel sounds. Absent: distended, guarding, rebound, rigid Extremities exam: Present: normal inspection, full ROM, normal capillary refill. Absent: tenderness, pedal edema, joint swelling, calf tenderness Back exam: Present: normal inspection Neurological exam: Present: alert, oriented X3, CN II-XII intact Psychiatric exam: Present: normal affect, normal mood Skin exam: Present: warm, dry, intact, normal color. Absent: rash Course Vital Signs 01/05/19 01/05/19 07:58 09:20 Temperature 99.0 F 98.1 F Pulse Rate 95 90 Respiratory 20 16 Rate Blood Pressure 146/92 141/93 O2 Sat by Pulse 98 96 Oximetry Medical Decision Making - Medical Decision Making Patient is feeling much improved this time I did discuss the findings with him. Patient does present with complaints of some abdominal pain and constipation. CAT scan shows no evidence of acute findings. Does have kidney stones which she does know already. He'll be discharged home with a bottle of citrate of magnesium is a follow-up with his doctor return when necessary - Lab Data Result diagrams: 01/05/19 08:40 01/05/19 08:40 Lab Results 01/05/19 01/05/19 01/05/19 Range/Units 08:40 08:40 09:30 WBC 8.6 (3.8-10.6) k/uL RBC 5.21 (4.30-5.90) m/uL Hgb 15.9 (13.0-17.5) gm/dL Hct 48.3 (39.0-53.0) % MCV 92.9 (80.0-100.0) fL MCH 30.5 (25.0-35.0) pg MCHC 32.8 (31.0-37.0) g/dL RDW 13.8 (11.5-15.5) % Plt Count 263 (150-450) k/uL Neutrophils % 60 % Lymphocytes % 28 % Monocytes % 7 % Eosinophils % 3 % Basophils % 0 % Neutrophils # 5.1 (1.3-7.7) k/uL Lymphocytes # 2.4 (1.0-4.8) k/uL Monocytes # 0.6 (0-1.0) k/uL Eosinophils # 0.3 (0-0.7) k/uL Basophils # 0.0 (0-0.2) k/uL Sodium 138 (137-145) mmol/L Potassium 4.2 (3.5-5.1) mmol/L Chloride 106 (98-107) mmol/L Carbon Dioxide 25 (22-30) mmol/L Anion Gap 7 mmol/L BUN 17 (9-20) mg/dL Creatinine 0.76 (0.66-1.25) mg/dL Est GFR (CKD-EPI)AfAm >90 (>60 ml/min/1.73 sqM) Est GFR (CKD-EPI)NonAf >90 (>60 ml/min/1.73 sqM) Glucose 111 H (74-99) mg/dL Calcium 9.1 (8.4-10.2) mg/dL Magnesium 1.9 (1.6-2.3) mg/dL Total Bilirubin 0.9 (0.2-1.3) mg/dL AST 16 L (17-59) U/L ALT 20 L (21-72) U/L Alkaline Phosphatase 57 (38-126) U/L Creatine Kinase 65 (55-170) U/L Total Protein 6.5 (6.3-8.2) g/dL Albumin 3.8 (3.5-5.0) g/dL Amylase 42 (30-110) U/L Lipase 94 (23-300) U/L Urine Color Yellow Urine Appearance Clear (Clear) Urine pH 5.5 (5.0-8.0) Ur Specific Parker 1.023 (1.001-1.035) Urine Protein Negative (Negative) Urine Glucose (UA) Negative (Negative) Urine Ketones Negative (Negative) Urine Blood Negative (Negative) Urine Nitrite Negative (Negative) Urine Bilirubin Negative (Negative) Urine Urobilinogen <2.0 (<2.0) mg/dL Ur Leukocyte Esterase Negative (Negative) - Radiology Data Radiology results: report reviewed (I did review the imaging and report no acute findings.), image reviewed Disposition Clinical Impression: Abdominal pain, Constipation Disposition: HOME SELF-CARE Condition: Good Instructions (If sedation given, give patient instructions): Abdominal Pain (ED), Constipation (ED) Additional Instructions: Take the bottle of citrate of magnesium after getting home. Is patient prescribed a controlled substance at d/c from ED?: No Referrals: Rodney Ferreira MD [Primary Care Provider] - 1-2 days
[2019-01-05 08:58] LABS: Basophils % (A) 0 %; Eosinophils # (A) 0.3 k/uL (0-0.7); Eosinophils % (A) 3 %; HCT 48.3 % (39.0-53.0); HGB 15.9 gm/dL (13.0-17.5); Lymphocytes # (A) 2.4 k/uL (1.0-4.8); Lymphocytes % (A) 28 %; MCH 30.5 pg (25.0-35.0); MCHC 32.8 g/dL (31.0-37.0); MCV 92.9 fL (80.0-100.0); Mean Platelet Volume 6.2; Monocytes # (A) 0.6 k/uL (0-1.0); Monocytes % (A) 7 %; Neutrophils # (A) 5.1 k/uL (1.3-7.7); Neutrophils % (A) 60 %; Platelet Count 263 k/uL (150-450); RBC 5.21 m/uL (4.30-5.90); RDW 13.8 % (11.5-15.5); WBC 8.6 k/uL (3.8-10.6)
[2019-01-05 09:04] LABS: ALT 20 U/L (21-72); AST 16 U/L (17-59); Albumin 3.8 g/dL (3.5-5.0); Alkaline Phosphatase 57 U/L (38-126); Amylase 42 U/L (30-110); Anion Gap 7 mmol/L; Blood Urea Nitrogen 17 mg/dL (9-20); Calcium 9.1 mg/dL (8.4-10.2); Carbon Dioxide 25 mmol/L (22-30); Chloride 106 mmol/L (98-107); Creatine Kinase 65 U/L (55-170); Glucose 111 mg/dL (74-99); Lipase 94 U/L (23-300); Magnesium 1.9 mg/dL (1.6-2.3); Potassium 4.2 mmol/L (3.5-5.1); Sodium 138 mmol/L (137-145); Total Bilirubin 0.9 mg/dL (0.2-1.3); Total Protein 6.5 g/dL (6.3-8.2)
--- NOTE | 2019-01-05 09:37 | XR ---
Abdomen HISTORY: Pain and nausea 2 views of the abdomen, correlation CT 10/30/2018 Lung bases are clear. There is no evident bowel obstruction or pneumoperitoneum. Bone mineralization is maintained. No evident pathologic calcification, right-sided kidney stone seen on prior CT is not seen definitively on plain film possibly due to patient body habitus. IMPRESSION: Nonobstructive bowel gas pattern. Limitations as described.
[2019-01-05 10:02] LABS: Appearance,Urine Clear (Clear); Bilirubin,Urine Negative (Negative); Blood,Urine Negative (Negative); Color,Urine Yellow; Glucose,Urine (UA) Negative (Negative); Ketones,Urine Negative (Negative); Leukocyte Esterase,Urine Negative (Negative); Nitrite,Urine Negative (Negative); PH, Urine 5.5 (5.0-8.0); Protein,Urine Negative (Negative); Specific Gravity,Urine 1.023 (1.001-1.035); Urobilinogen,Urine <2.0 mg/dL (<2.0)
--- NOTE | 2019-01-05 10:36 | CT ---
EXAMINATION TYPE: CT abdomen pelvis w con DATE OF EXAM: 01/05/2019 COMPARISON: Prior CT 10/30/2018 HISTORY: Generalized pain with constipation CT DLP: 2288.3 mGycm Automated exposure control for dose reduction was used. TECHNIQUE: Helical acquisition of images from the lung bases through the pelvis have been completed. CONTRAST: Performed without Oral Contrast and with IV Contrast, patient injected with 100 mL of Isovue 300. FINDINGS: Right inguinal hernia contains fat as does the left LUNG BASES: No significant abnormality is appreciated. AORTA: No significant abnormality is appreciated. LIVER/GB: Liver shows low attenuation and is enlarged.. PANCREAS: No significant abnormality is seen. SPLEEN: No significant abnormality is seen. ADRENALS: No significant abnormality is seen. KIDNEYS: Punctate calcification is present within the right kidney, no ureteral calcifications or hyd ronephrosis. Small cortical cyst associated with the upper pole left kidney. REPRODUCTIVE ORGANS: Small calcifications associated with the prostate. BOWEL: Scattered diverticular changes in the sigmoid colon.. FREE AIR: No Free Air visible. ASCITES: None visible. PELVIC ADENOPATHY: None visualized. RETROPERITONEAL ADENOPATHY: No Retroperitoneal Adenopathy visible. URINARY BLADDER: Decompressed, there is lack of distention, there may be some wall thickening. OSSEOUS STRUCTURES: No significant abnormality is seen. IMPRESSION: NONOBSTRUCTIVE RIGHT NEPHROLITHIASIS. DIVERTICULOSIS. POSSIBLE HEPATIC STEATOSIS . BILATERAL INGUINAL HERNIAS CONTAIN FAT. Additional findings above.
[2019-01-05] MEDS ORDERED: MAGNESIUM CITRATE 296 ML BOTTLE PO ONE (11:01)
[2019-01-05 11:40] VITALS: BP 132/90; PULSE 86; RESP 18; TEMP 98
== END 2019-01-05 11:45 | disposition home or self-care (01) ==
LOC: EC 07:54
DX: K59.00 Constipation, unspecified (principal); J45.909 Unspecified asthma, uncomplicated; E11.9 Type 2 diabetes mellitus without complications; I10 Essential (primary) hypertension; N20.0 Calculus of kidney; K57.90 Diverticulosis of intestine, part unspecified, without perforation or abscess without bleeding; K40.20 Bilateral inguinal hernia, without obstruction or gangrene, not specified as recurrent; Z79.84 Long term (current) use of oral hypoglycemic drugs; Z79.899 Other long term (current) drug therapy; Z87.891 Personal history of nicotine dependence
CPT/HCPCS: 36415; 80053; 82150; 82550; 83690; 83735; 85025; 81003; 74018; 74177; 99284; 96360; 96361 ×2; Q9967

== ENCOUNTER 2019-01-15 07:59 | Emergency (ER) | payer BC ==
[2019-01-15 08:03] VITALS: BP 151/89; PULSE 95; RESP 20; TEMP 98.3
--- NOTE | 2019-01-15 08:17 | ED ---
Lower Extremity Injury HPI - General Chief Complaint: Extremity Injury, Lower Stated Complaint: foot pain/swelling Time Seen by Provider: 01/15/19 08:04 Source: patient, RN notes reviewed Mode of arrival: wheelchair Limitations: no limitations - History of Present Illness Initial Comments: 58-year-old male presents emergency Department chief complaint of left foot and ankle pain. Patient states she's been having some soreness his left foot last couple days but states today he was walking down a ramp and felt a pop in his left ankle states it mainly in his ankle and has pain when he ambulates. Patient states it's much better at rest. He does state when he has his foot elevated and he dorsiflex or plantarflex that he has discomfort along his left lateral ankle region. Patient denies any prior fractures. He has made a recent appointment with rn oncology secondary to his foot pain. Patient has no current discoloration. He does state that he is Neuropathy. - Related Data Home Medications Medication Instructions Recorded Confirmed Albuterol Sulfate [Proair Hfa] 2 puff INHALATION RT-QID PRN 05/18/18 01/15/19 Montelukast Sodium [Singulair] 10 mg PO DAILY 05/18/18 01/15/19 Albuterol Nebulized [Ventolin 2.5 mg INHALATION RT-QID PRN 07/11/18 01/15/19 Nebulized] [place]-3 Fatty Acids [[place]free-3] 1,000 mg PO DAILY 09/03/18 01/15/19 metFORMIN HCL [metFORMIN HCL ER] 750 mg PO AC-SUPPER 09/03/18 01/15/19 Lisinopril 20 mg PO DAILY@1700 10/30/18 01/15/19 Multivitamins, Thera [Multivitamin 1 tab PO DAILY 12/28/18 01/15/19 (formulary)] Previous Rx's Medication Instructions Recorded Ibuprofen [Motrin] 600 mg PO Q8HR PRN #30 tab 01/15/19 Allergies Allergy/AdvReac Type Severity Reaction Status Date / Time No Known Allergies Allergy Verified 01/15/19 08:21 Review of Systems ROS Statement: Those systems with pertinent positive or pertinent negative responses have been documented in the HPI. ROS Other: All systems not noted in ROS Statement are negative. Past Medical History Past Medical History: Asthma, Diabetes Mellitus, Hyperlipidemia, Hypertension, Osteoarthritis (OA) Additional Past Medical History / Comment(s): Pt recently admitted on 05/18/18 with persistent asthma exacerbation thought to be d/t new carpet in home, NIDDM II-pt states hyperglycemia is only when on steroids and that once off, his sugars go back to normal, arthritis R knee, getting set up for a sleep study. History of Any Multi-Drug Resistant Organisms: None Reported Past Surgical History: Hernia Repair Additional Past Surgical History / Comment(s): Umbilical hernia repair Past Anesthesia/Blood Transfusion Reactions: No Reported Reaction, Motion Sickness Past Psychological History: No Psychological Hx Reported Smoking Status: Former smoker Past Alcohol Use History: None Reported Past Drug Use History: None Reported - Past Family History Mother History Unknown: Yes Family Medical History: Cancer Additional Family Medical History / Comment(s): Mother of ovarian cancer at the age of 78yrs. Father History Unknown: Yes Additional Family Medical History / Comment(s): Father in his 30s of a internal bleed. Brother(s) Family Medical History: No Reported History Sister(s) Family Medical History: No Reported History Daughter(s) Family Medical History: Unable to Obtain General Exam Limitations: no limitations General appearance: alert, in no apparent distress Head exam: Present: atraumatic, normocephalic, normal inspection Respiratory exam: Present: normal lung sounds bilaterally. Absent: respiratory distress, wheezes, rales, rhonchi, stridor Cardiovascular Exam: Present: regular rate, normal rhythm, normal heart sounds. Absent: systolic murmur, diastolic murmur, rubs, gallop, clicks Extremities exam: Present: other (Left ankle there is tenderness over the lateral malleoli region with moderate swelling, no ecchymosis neurovascular intact, minimal tenderness left lateral foot. Pulses equal bilaterally) Skin exam: Present: warm, dry, intact, normal color. Absent: rash Course Vital Signs 01/15/19 08:01 Temperature 98.3 F Pulse Rate 95 Respiratory 20 Rate Blood Pressure 151/89 O2 Sat by Pulse 96 Oximetry Medical Decision Making - Medical Decision Making 58-year-old male present emergency department for left ankle pain. Patient had x-rays which shows no acute fracture. Patient's symptoms are consistent with left ankle sprain. Patient was placed in a stirrup Aircast and conservative treatment will be initiated. Patient will follow-up with orthopedics if no improvement return parameters were discussed. Disposition Clinical Impression: Left ankle sprain Disposition: HOME SELF-CARE Condition: Stable Instructions (If sedation given, give patient instructions): Ankle Sprain (ED) Additional Instructions: Please return to the Emergency Department if symptoms worsen or any other concerns. Prescriptions: Ibuprofen [Motrin] 600 mg PO Q8HR PRN #30 tab PRN Reason: Pain Is patient prescribed a controlled substance at d/c from ED?: No Referrals: Rodney Ferreira MD [Primary Care Provider] - 1-2 days Yogi Dobson DO [Medical Doctor] - 1-2 days Time of Disposition: 09:00
--- NOTE | 2019-01-15 08:43 | XR ---
EXAMINATION TYPE: XR ankle complete LT DATE OF EXAM: 01/15/2019 COMPARISON: None HISTORY: Pain TECHNIQUE: Left ankle is examined in 3 projections. FINDINGS: Ankle mortise is intact. Some mild soft tissue swelling is over the lateral malleolus. No acute displ aced fractures are evident. IMPRESSION: 1. Mild soft tissue swelling lateral malleolus. 2. No acute fractures evident. 3. Follow-up exams can be performed 7-10 days from acute trauma for continued pain
--- NOTE | 2019-01-15 08:45 | XR ---
EXAMINATION TYPE: XR foot complete LT DATE OF EXAM: 01/15/2019 COMPARISON: None HISTORY: Pain rolled foot TECHNIQUE: Three-view left foot FINDINGS: No acute displaced fractures are evident. Small plantar calcaneal heel spur is present. Sof t tissues over the foot appear within normal limits. Some mild degenerative change within the first d igit joint spaces may be present. Follow-up exams can be performed 7-10 days from acute trauma for continued pain. IMPRESSION: 1. No acute osseous abnormality left foot
[2019-01-15] MEDS ORDERED: ACET/COD 300 MG/30 MG STARTER PACK 6 TAB BTL PO STA (08:58)
== END 2019-01-15 09:20 | disposition home or self-care (01) ==
LOC: EC 07:59
DX: S93.402A Sprain of unspecified ligament of left ankle, initial encounter (principal); J45.909 Unspecified asthma, uncomplicated; E11.9 Type 2 diabetes mellitus without complications; I10 Essential (primary) hypertension; Z87.891 Personal history of nicotine dependence; Z98.890 Other specified postprocedural states; Z79.84 Long term (current) use of oral hypoglycemic drugs; Z79.899 Other long term (current) drug therapy; X50.9XXA Other and unspecified overexertion or strenuous movements or postures, initial encounter; Y93.01 Activity, walking, marching and hiking
CPT/HCPCS: 73610; 73630; 99283; 29515; L4350

== ENCOUNTER 2019-01-18 08:19 | Emergency (ER) | payer BC ==
[2019-01-18] MEDS ORDERED: methylPREDNISolone SOD SUCCI 125 MG/2 ML VIAL IV STA (08:31)
[2019-01-18] MEDS ORDERED: IPRATROPIUM-ALBUTEROL 3 ML NEB INHALATION STA (08:31)
--- NOTE | 2019-01-18 08:38 | ED ---
SOB HPI - General Chief Complaint: Shortness of Breath Stated Complaint: SOB Time Seen by Provider: 01/18/19 08:26 Source: patient, RN notes reviewed Mode of arrival: ambulatory Limitations: no limitations - History of Present Illness Initial Comments: 58-year-old male presents emergency department tingling or shortness of breath. Patient states started yesterday worse this morning. Patient does have underlying asthma with a former smoker. Patient states that he has noticed increased wheezing he does get some relief with his albuterol. Denies any chest pain states she's had some tightness. Patient denies fever, chills. Patient states he has a dry nonproductive cough no severe nasal congestion sore throat and ear pain headache, dizziness. 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 - Related Data Home Medications Medication Instructions Recorded Confirmed Albuterol Sulfate [Proair Hfa] 2 puff INHALATION RT-QID PRN 05/18/18 01/18/19 Montelukast Sodium [Singulair] 10 mg PO DAILY 05/18/18 01/18/19 Albuterol Nebulized [Ventolin 2.5 mg INHALATION RT-QID PRN 07/11/18 01/18/19 Nebulized] [place]-3 Fatty Acids [[place]-3] 1,000 mg PO DAILY 09/03/18 01/18/19 metFORMIN HCL [metFORMIN HCL ER] 750 mg PO AC-SUPPER 09/03/18 01/18/19 Lisinopril 20 mg PO DAILY@1700 10/30/18 01/18/19 Multivitamins, Thera [Multivitamin 1 tab PO DAILY 12/28/18 01/18/19 (formulary)] guaiFENesin [Mucinex] 600 mg PO Q12H 01/18/19 01/18/19 Previous Rx's Medication Instructions Recorded Albuterol Nebulized [Ventolin 2.5 mg INHALATION Q4H PRN #25 nebu 01/18/19 Nebulized] Azithromycin [Zithromax Z-pack] 0 mg PO DIRECTED #1 pack 01/18/19 predniSONE 50 mg PO DAILY #5 tab 01/18/19 Allergies Allergy/AdvReac Type Severity Reaction Status Date / Time No Known Allergies Allergy Verified 01/18/19 09:04 Review of Systems ROS Statement: Those systems with pertinent positive or pertinent negative responses have been documented in the HPI. ROS Other: All systems not noted in ROS Statement are negative. Past Medical History Past Medical History: Asthma, Diabetes Mellitus, Hyperlipidemia, Hypertension, Osteoarthritis (OA) Additional Past Medical History / Comment(s): Pt recently admitted on 05/18/18 with persistent asthma exacerbation thought to be d/t new carpet in home, NIDDM II-pt states hyperglycemia is only when on steroids and that once off, his sugars go back to normal, arthritis R knee, getting set up for a sleep study. History of Any Multi-Drug Resistant Organisms: None Reported Past Surgical History: Hernia Repair Additional Past Surgical History / Comment(s): Umbilical hernia repair Past Anesthesia/Blood Transfusion Reactions: No Reported Reaction, Motion Sickness Past Psychological History: No Psychological Hx Reported Smoking Status: Former smoker Past Alcohol Use History: None Reported Past Drug Use History: None Reported - Past Family History Mother History Unknown: Yes Family Medical History: Cancer Additional Family Medical History / Comment(s): Mother of ovarian cancer at the age of 78yrs. Father History Unknown: Yes Additional Family Medical History / Comment(s): Father in his 30s of a internal bleed. Brother(s) Family Medical History: No Reported History Sister(s) Family Medical History: No Reported History Daughter(s) Family Medical History: Unable to Obtain General Exam Limitations: no limitations General appearance: alert, in no apparent distress Head exam: Present: atraumatic, normocephalic, normal inspection Eye exam: Present: normal appearance, PERRL, EOMI. Absent: scleral icterus, conjunctival injection, periorbital swelling ENT exam: Present: normal exam, normal oropharynx, mucous membranes moist Neck exam: Present: normal inspection, full ROM. Absent: tenderness, meningismus, lymphadenopathy Respiratory exam: Present: wheezes. Absent: respiratory distress, rales, rhonchi, stridor Cardiovascular Exam: Present: regular rate, normal rhythm, normal heart sounds. Absent: systolic murmur, diastolic murmur, rubs, gallop, clicks Back exam: Absent: CVA tenderness (R), CVA tenderness (L) Skin exam: Present: warm, dry, intact, normal color. Absent: rash Course Vital Signs 01/18/19 01/18/19 01/18/19 08:22 08:37 08:47 Temperature 98.4 F Pulse Rate 102 H 94 99 Respiratory 22 Rate Blood Pressure 139/93 O2 Sat by Pulse 94 L Oximetry 01/18/19 09:25 Temperature 98.1 F Pulse Rate 102 H Respiratory 18 Rate Blood Pressure 120/69 O2 Sat by Pulse 95 Oximetry Medical Decision Making - Medical Decision Making 58-year-old male presents emergency Department for cough congestion shortness of breath. Patient was given DuoNeb treatment and had labs and chest x-ray which are unremarkable. Patient is improved after DuoNeb treatment. Patient has mild asthma exacerbation. Patient will be discharged with follow-up. Return parameters were discussed. - Lab Data Result diagrams: 01/18/19 08:35 01/18/19 08:35 Lab Results 01/18/19 01/18/19 01/18/19 Range/Units 08:35 08:35 08:35 WBC 8.8 (3.8-10.6) k/uL RBC 4.95 (4.30-5.90) m/uL Hgb 14.8 (13.0-17.5) gm/dL Hct 45.1 (39.0-53.0) % MCV 91.2 (80.0-100.0) fL MCH 29.8 (25.0-35.0) pg MCHC 32.7 (31.0-37.0) g/dL RDW 14.2 (11.5-15.5) % Plt Count 259 (150-450) k/uL Neutrophils % 68 % Lymphocytes % 20 % Monocytes % 8 % Eosinophils % 3 % Basophils % 1 % Neutrophils # 6.0 (1.3-7.7) k/uL Lymphocytes # 1.7 (1.0-4.8) k/uL Monocytes # 0.7 (0-1.0) k/uL Eosinophils # 0.2 (0-0.7) k/uL Basophils # 0.1 (0-0.2) k/uL PT 9.8 (9.0-12.0) sec INR 0.9 (<1.2) APTT 23.8 (22.0-30.0) sec Sodium 141 (137-145) mmol/L Potassium 3.9 (3.5-5.1) mmol/L Chloride 110 H (98-107) mmol/L Carbon Dioxide 24 (22-30) mmol/L Anion Gap 7 mmol/L BUN 18 (9-20) mg/dL Creatinine 0.81 (0.66-1.25) mg/dL Est GFR (CKD-EPI)AfAm >90 (>60 ml/min/1.73 sqM) Est GFR (CKD-EPI)NonAf >90 (>60 ml/min/1.73 sqM) Glucose 140 H (74-99) mg/dL Calcium 9.2 (8.4-10.2) mg/dL Magnesium 1.8 (1.6-2.3) mg/dL Total Bilirubin 0.5 (0.2-1.3) mg/dL AST 14 L (17-59) U/L ALT 14 L (21-72) U/L Alkaline Phosphatase 52 (38-126) U/L Troponin I (0.000-0.034) ng/mL Total Protein 6.4 (6.3-8.2) g/dL Albumin 3.9 (3.5-5.0) g/dL 01/18/19 Range/Units 08:35 WBC (3.8-10.6) k/uL RBC (4.30-5.90) m/uL Hgb (13.0-17.5) gm/dL Hct (39.0-53.0) % MCV (80.0-100.0) fL MCH (25.0-35.0) pg MCHC (31.0-37.0) g/dL RDW (11.5-15.5) % Plt Count (150-450) k/uL Neutrophils % % Lymphocytes % % Monocytes % % Eosinophils % % Basophils % % Neutrophils # (1.3-7.7) k/uL Lymphocytes # (1.0-4.8) k/uL Monocytes # (0-1.0) k/uL Eosinophils # (0-0.7) k/uL Basophils # (0-0.2) k/uL PT (9.0-12.0) sec INR (<1.2) APTT (22.0-30.0) sec Sodium (137-145) mmol/L Potassium (3.5-5.1) mmol/L Chloride (98-107) mmol/L Carbon Dioxide (22-30) mmol/L Anion Gap mmol/L BUN (9-20) mg/dL Creatinine (0.66-1.25) mg/dL Est GFR (CKD-EPI)AfAm (>60 ml/min/1.73 sqM) Est GFR (CKD-EPI)NonAf (>60 ml/min/1.73 sqM) Glucose (74-99) mg/dL Calcium (8.4-10.2) mg/dL Magnesium (1.6-2.3) mg/dL Total Bilirubin (0.2-1.3) mg/dL AST (17-59) U/L ALT (21-72) U/L Alkaline Phosphatase (38-126) U/L Troponin I <0.012 (0.000-0.034) ng/mL Total Protein (6.3-8.2) g/dL Albumin (3.5-5.0) g/dL Disposition Clinical Impression: Asthma with exacerbation Disposition: HOME SELF-CARE Condition: Stable Instructions (If sedation given, give patient instructions): Asthma (ED) Additional Instructions: Please return to the Emergency Department if symptoms worsen or any other concerns. Prescriptions: predniSONE 50 mg PO DAILY #5 tab Albuterol Nebulized [Ventolin Nebulized] 2.5 mg INHALATION Q4H PRN #25 nebu PRN Reason: difficulty in breathing Azithromycin [Zithromax Z-pack] 0 mg PO DIRECTED #1 pack Is patient prescribed a controlled substance at d/c from ED?: No Referrals: Rodney Ferreira MD [Primary Care Provider] - 1-2 days Time of Disposition: 09:36
[2019-01-18 08:57] LABS: Basophils # (A) 0.1 k/uL (0-0.2); Basophils % (A) 1 %; Eosinophils # (A) 0.2 k/uL (0-0.7); Eosinophils % (A) 3 %; HCT 45.1 % (39.0-53.0); HGB 14.8 gm/dL (13.0-17.5); Lymphocytes # (A) 1.7 k/uL (1.0-4.8); Lymphocytes % (A) 20 %; MCH 29.8 pg (25.0-35.0); MCHC 32.7 g/dL (31.0-37.0); MCV 91.2 fL (80.0-100.0); Mean Platelet Volume 6.6; Monocytes # (A) 0.7 k/uL (0-1.0); Monocytes % (A) 8 %; Neutrophils % (A) 68 %; Platelet Count 259 k/uL (150-450); RBC 4.95 m/uL (4.30-5.90); RDW 14.2 % (11.5-15.5); WBC 8.8 k/uL (3.8-10.6)
[2019-01-18 09:03] LABS: ALT 14 U/L (21-72); AST 14 U/L (17-59); Albumin 3.9 g/dL (3.5-5.0); Alkaline Phosphatase 52 U/L (38-126); Anion Gap 7 mmol/L; Blood Urea Nitrogen 18 mg/dL (9-20); Calcium 9.2 mg/dL (8.4-10.2); Carbon Dioxide 24 mmol/L (22-30); Chloride 110 mmol/L (98-107); Glucose 140 mg/dL (74-99); INR 0.9 (<1.2); Magnesium 1.8 mg/dL (1.6-2.3); Partial Thromboplastin Time 23.8 sec (22.0-30.0); Potassium 3.9 mmol/L (3.5-5.1); Prothrombin Time 9.8 sec (9.0-12.0); Sodium 141 mmol/L (137-145); Total Bilirubin 0.5 mg/dL (0.2-1.3); Total Protein 6.4 g/dL (6.3-8.2)
--- NOTE | 2019-01-18 09:21 | XR ---
EXAMINATION TYPE: XR chest 2V DATE OF EXAM: 01/18/2019 COMPARISON: Prior chest x-ray 12/28/2018 HISTORY: Shortness of breath, difficulty breathing TECHNIQUE: Frontal and lateral views of the chest are obtained. FINDINGS: There are overlying cardiac leads. No airspace disease, pneumothorax, or pleural effusion. Prominent lung lines suggest underlying COPD. Is bronchial wall thickening. Cardiac mediastinal silh ouette is stable. IMPRESSION: Correlate for possible bronchitis, reactive airways disease
[2019-01-18 09:26] VITALS: BP 120/69; PULSE 102; RESP 18; TEMP 98.1
== END 2019-01-18 09:43 | disposition home or self-care (01) ==
LOC: EC 08:19
DX: J45.901 Unspecified asthma with (acute) exacerbation (principal); E11.9 Type 2 diabetes mellitus without complications; I10 Essential (primary) hypertension; Z79.84 Long term (current) use of oral hypoglycemic drugs; Z79.899 Other long term (current) drug therapy; Z87.891 Personal history of nicotine dependence
CPT/HCPCS: 36415; 94640; 93005; 80053; 83735; 84484; 85025; 85610; 85730; 71046; 99285; 96374; J2930

== ENCOUNTER 2019-01-20 06:30 | Inpatient (IN) | payer BC ==
[2019-01-20 07:00] LABS: Basophils % (A) 0 %; Eosinophils # (A) 0.1 k/uL (0-0.7); Eosinophils % (A) 1 %; HGB 14.3 gm/dL (13.0-17.5); Lymphocytes # (A) 2.1 k/uL (1.0-4.8); Lymphocytes % (A) 22 %; MCH 30.1 pg (25.0-35.0); MCHC 32.6 g/dL (31.0-37.0); MCV 92.5 fL (80.0-100.0); Mean Platelet Volume 6.7; Monocytes # (A) 0.6 k/uL (0-1.0); Monocytes % (A) 6 %; Neutrophils # (A) 6.8 k/uL (1.3-7.7); Neutrophils % (A) 70 %; Platelet Count 309 k/uL (150-450); RBC 4.76 m/uL (4.30-5.90); RDW 14.8 % (11.5-15.5); WBC 9.7 k/uL (3.8-10.6)
[2019-01-20 07:09] LABS: ALT 17 U/L (21-72); AST 14 U/L (17-59); Albumin 3.7 g/dL (3.5-5.0); Alkaline Phosphatase 49 U/L (38-126); Anion Gap 8 mmol/L; Blood Urea Nitrogen 20 mg/dL (9-20); Calcium 8.9 mg/dL (8.4-10.2); Carbon Dioxide 25 mmol/L (22-30); Chloride 108 mmol/L (98-107); Glucose 143 mg/dL (74-99); Potassium 3.6 mmol/L (3.5-5.1); Sodium 141 mmol/L (137-145); Total Bilirubin 0.5 mg/dL (0.2-1.3); Total Protein 6.1 g/dL (6.3-8.2)
[2019-01-20] MEDS ORDERED: IPRATROPIUM-ALBUTEROL 3 ML NEB INHALATION STA (07:12)
[2019-01-20 07:14] LABS: INR 0.9 (<1.2); Prothrombin Time 9.8 sec (9.0-12.0)
--- NOTE | 2019-01-20 07:18 | ED ---
SOB HPI - General Chief Complaint: Shortness of Breath Stated Complaint: SOB Time Seen by Provider: 01/20/19 07:03 Source: patient, family, RN notes reviewed Mode of arrival: ambulatory Limitations: no limitations - History of Present Illness Initial Comments: This a 58-year-old male presents emergency Department chief complaint of shortness of breath. Patient was seen in emergency from a few days ago for similar complaints and diagnosed with an asthma exacerbation. He has been doing his treatments at home along with taking oral steroids with minimal relief. Patient states had difficult time last night. Reports no chest pain or pleuritic pain. Patient has no nausea and diarrhea constipation no fevers or chills. Patient did do an OB no treatment just prior arrival states he still noticing wheezing and increased shortness of breath. Patient denies any leg edema - Related Data Home Medications Medication Instructions Recorded Confirmed Albuterol Sulfate [Proair Hfa] 2 puff INHALATION RT-QID PRN 05/18/18 01/20/19 Montelukast Sodium [Singulair] 10 mg PO DAILY 05/18/18 01/20/19 Albuterol Nebulized [Ventolin 2.5 mg INHALATION RT-Q4H PRN 07/11/18 01/20/19 Nebulized] [place]-3 Fatty Acids [[place]-3] 1,000 mg PO DAILY 09/03/18 01/20/19 metFORMIN HCL [metFORMIN HCL ER] 750 mg PO AC-SUPPER 09/03/18 01/20/19 Lisinopril 20 mg PO DAILY@1700 10/30/18 01/20/19 Multivitamins, Thera [Multivitamin 1 tab PO DAILY 12/28/18 01/20/19 (formulary)] guaiFENesin [Mucinex] 600 mg PO Q12H 01/18/19 01/20/19 Azithromycin [Zithromax Z-pack] See Taper PO DAILY 01/20/19 01/20/19 Previous Rx's Medication Instructions Recorded predniSONE 50 mg PO DAILY #5 tab 01/18/19 Allergies Allergy/AdvReac Type Severity Reaction Status Date / Time No Known Allergies Allergy Verified 01/20/19 06:56 Review of Systems ROS Statement: Those systems with pertinent positive or pertinent negative responses have been documented in the HPI. ROS Other: All systems not noted in ROS Statement are negative. Past Medical History Past Medical History: Asthma, Diabetes Mellitus, Hyperlipidemia, Hypertension, Osteoarthritis (OA) Additional Past Medical History / Comment(s): Pt recently admitted on 05/18/18 with persistent asthma exacerbation thought to be d/t new carpet in home, NIDDM II-pt states hyperglycemia is only when on steroids and that once off, his sugars go back to normal, arthritis R knee, getting set up for a sleep study. History of Any Multi-Drug Resistant Organisms: None Reported Past Surgical History: Hernia Repair Additional Past Surgical History / Comment(s): Umbilical hernia repair Past Anesthesia/Blood Transfusion Reactions: No Reported Reaction, Motion Sickness Past Psychological History: No Psychological Hx Reported Smoking Status: Former smoker Past Alcohol Use History: None Reported Past Drug Use History: None Reported - Past Family History Mother History Unknown: Yes Family Medical History: Cancer Additional Family Medical History / Comment(s): Mother of ovarian cancer at the age of 78yrs. Father History Unknown: Yes Additional Family Medical History / Comment(s): Father in his 30s of a internal bleed. Brother(s) Family Medical History: No Reported History Sister(s) Family Medical History: No Reported History Daughter(s) Family Medical History: Unable to Obtain General Exam Limitations: no limitations General appearance: alert, in no apparent distress Head exam: Present: atraumatic, normocephalic, normal inspection Eye exam: Present: normal appearance, PERRL, EOMI. Absent: scleral icterus, conjunctival injection, periorbital swelling ENT exam: Present: normal exam, normal oropharynx, mucous membranes moist, TM's normal bilaterally Neck exam: Present: normal inspection, full ROM. Absent: tenderness, meningismus, lymphadenopathy Respiratory exam: Present: respiratory distress (Mild respiratory distress), wheezes. Absent: normal lung sounds bilaterally, rales, rhonchi, stridor Cardiovascular Exam: Present: normal rhythm, tachycardia, normal heart sounds. Absent: systolic murmur, diastolic murmur, rubs, gallop, clicks GI/Abdominal exam: Present: soft, normal bowel sounds. Absent: distended, tenderness, guarding, rebound, rigid Extremities exam: Present: pedal edema Course Vital Signs 01/20/19 01/20/19 01/20/19 06:31 07:32 07:45 Temperature 98.7 F Pulse Rate 112 H 99 109 H Respiratory 20 Rate Blood Pressure 134/77 O2 Sat by Pulse 94 L Oximetry 01/20/19 07:49 Temperature Pulse Rate 109 H Respiratory 22 Rate Blood Pressure 131/68 O2 Sat by Pulse 96 Oximetry Medical Decision Making - Medical Decision Making 58-year-old male presents emergency from for dyspnea. Patient fell outpatient treatment for asthma exacerbation lapse EKG, chest x-ray ordered today with no acute changes. Patient had minimal improvement after 2 DuoNeb treatments. Patient was given Solu-Medrol. Patient be admitted for observation, repeat treatment and IV steroids. - Lab Data Result diagrams: 01/20/19 06:40 01/20/19 06:40 Lab Results 01/20/19 01/20/19 01/20/19 Range/Units 06:40 06:40 06:40 WBC 9.7 (3.8-10.6) k/uL RBC 4.76 (4.30-5.90) m/uL Hgb 14.3 (13.0-17.5) gm/dL Hct 44.0 (39.0-53.0) % MCV 92.5 (80.0-100.0) fL MCH 30.1 (25.0-35.0) pg MCHC 32.6 (31.0-37.0) g/dL RDW 14.8 (11.5-15.5) % Plt Count 309 (150-450) k/uL Neutrophils % 70 % Lymphocytes % 22 % Monocytes % 6 % Eosinophils % 1 % Basophils % 0 % Neutrophils # 6.8 (1.3-7.7) k/uL Lymphocytes # 2.1 (1.0-4.8) k/uL Monocytes # 0.6 (0-1.0) k/uL Eosinophils # 0.1 (0-0.7) k/uL Basophils # 0.0 (0-0.2) k/uL PT 9.8 (9.0-12.0) sec INR 0.9 (<1.2) APTT 21.6 L (22.0-30.0) sec Sodium 141 (137-145) mmol/L Potassium 3.6 (3.5-5.1) mmol/L Chloride 108 H (98-107) mmol/L Carbon Dioxide 25 (22-30) mmol/L Anion Gap 8 mmol/L BUN 20 (9-20) mg/dL Creatinine 0.77 (0.66-1.25) mg/dL Est GFR (CKD-EPI)AfAm >90 (>60 ml/min/1.73 sqM) Est GFR (CKD-EPI)NonAf >90 (>60 ml/min/1.73 sqM) Glucose 143 H (74-99) mg/dL Calcium 8.9 (8.4-10.2) mg/dL Total Bilirubin 0.5 (0.2-1.3) mg/dL AST 14 L (17-59) U/L ALT 17 L (21-72) U/L Alkaline Phosphatase 49 (38-126) U/L Troponin I (0.000-0.034) ng/mL Total Protein 6.1 L (6.3-8.2) g/dL Albumin 3.7 (3.5-5.0) g/dL 01/20/19 Range/Units 06:40 WBC (3.8-10.6) k/uL RBC (4.30-5.90) m/uL Hgb (13.0-17.5) gm/dL Hct (39.0-53.0) % MCV (80.0-100.0) fL MCH (25.0-35.0) pg MCHC (31.0-37.0) g/dL RDW (11.5-15.5) % Plt Count (150-450) k/uL Neutrophils % % Lymphocytes % % Monocytes % % Eosinophils % % Basophils % % Neutrophils # (1.3-7.7) k/uL Lymphocytes # (1.0-4.8) k/uL Monocytes # (0-1.0) k/uL Eosinophils # (0-0.7) k/uL Basophils # (0-0.2) k/uL PT (9.0-12.0) sec INR (<1.2) APTT (22.0-30.0) sec Sodium (137-145) mmol/L Potassium (3.5-5.1) mmol/L Chloride (98-107) mmol/L Carbon Dioxide (22-30) mmol/L Anion Gap mmol/L BUN (9-20) mg/dL Creatinine (0.66-1.25) mg/dL Est GFR (CKD-EPI)AfAm (>60 ml/min/1.73 sqM) Est GFR (CKD-EPI)NonAf (>60 ml/min/1.73 sqM) Glucose (74-99) mg/dL Calcium (8.4-10.2) mg/dL Total Bilirubin (0.2-1.3) mg/dL AST (17-59) U/L ALT (21-72) U/L Alkaline Phosphatase (38-126) U/L Troponin I <0.012 (0.000-0.034) ng/mL Total Protein (6.3-8.2) g/dL Albumin (3.5-5.0) g/dL - EKG Data EKG Comments: EKG performed at 6:41 sinus tachycardia rate of 111. 168 QRS 108 QT/QTC 320/435to St elevation or depression. Disposition Clinical Impression: Asthma with exacerbation, Failure of outpatient treatment Disposition: ADMITTED IP TO THIS HOSP Condition: Fair Referrals: Rodney Ferreira MD [Primary Care Provider] - 1-2 days
[2019-01-20 07:40] LABS: Partial Thromboplastin Time 21.6 sec (22.0-30.0)
--- NOTE | 2019-01-20 08:06 | XR ---
EXAMINATION TYPE: XR chest 2V DATE OF EXAM: 01/20/2019 COMPARISON: Chest x-ray from 2 days ago. HISTORY: History of asthma with shortness of breath TECHNIQUE: Frontal and lateral views of the chest are obtained. FINDINGS: Overlying EKG leads are redemonstrated. There is no focal air space opacity, pleural effusi on, or pneumothorax seen. The cardiac silhouette size is within normal limits. The osseous structu res are intact. IMPRESSION: No acute cardiopulmonary process currently.
[2019-01-20] MEDS ORDERED: ALBUTEROL NEBULIZED 2.5 MG/3 ML INHALATION STA (08:27)
[2019-01-20] MEDS ORDERED: ALBUTEROL NEBULIZED 2.5 MG/3 ML INHALATION PRN (08:29)
[2019-01-20 09:15] VITALS: BMI 47.2
[2019-01-20] MEDS: IPRATROPIUM-ALBUTEROL 3 ML NEB INHALATION SCH ×3 (11:00→20:18)
[2019-01-20 11:37] LABS: Glucose,Whole Blood 153 mg/dL (75-99)
[2019-01-20] MEDS: methylPREDNISolone SOD SUCCI 125 MG/2 ML VIAL IV SCH ×3 (12:02→23:52)
[2019-01-20] MEDS: INSULIN ASPART (NovoLOG) 100 UNIT/ML VIAL SQ SCH ×3 (12:02→23:54)
[2019-01-20] MEDS: guaiFENesin 600 MG TABLET.ER PO SCH ×2 (12:06→23:53)
--- NOTE | 2019-01-20 12:48 | P.HPIM ---
History of Present Illness H&P Date: 01/20/19 Chief Complaint: Asthma exacerbation This is a 58-year-old male one of Dr. Zamora with a previous medical history significant for mild persistent asthma, hypertension and hypertensive cardio vascular disease, hyperlipidemia, psoriatic arthritis, morbid obesity with sleep apnea currently has no CPAP, patient was seen in the emergency department on 01/15/2019 for an acute exacerbation of asthma he was given nebulized treatment he was sent home and was started on prednisone 60 mg orally once every day along with a Z-Gama patient started taking the medication however he has been using his nebulized treatment more than 5 times every day without any relief ended up coming back to the ER today with increased shortness of breath, appendectomy, was done in the ER showed 250 mL, patient did not recover from [id number] breathing treatments so he was admitted to the hospital for acute exacerbation of asthma he was started on Solu-Medrol 60 mg IV push every 6 hours as well as nebulized treatment and pulmonary consultation was obtained from Dr. PATIENCE Griffith. Review of Systems Constitutional: Reports weight gain, Denies anorexia, Denies chronic headaches, Denies chronic pain, Denies lethargy, Denies weakness Eyes: denies blurred vision, denies bulging eye, denies decreased vision Ears, nose, mouth and throat: Denies dysphagia, Denies neck fullness/pressure, Denies swelling in throat, Denies sore throat Cardiovascular: Reports decreased exercise tolerance, Reports dyspnea on exertion, Reports shortness of breath, Denies chest pain, Denies lighthe adedness, Denies rapid heart beat, Denies syncope Respiratory: Reports cough, Reports cough with sputum, Reports sleep apnea, Reports wheezing, Denies congestion, Denies home oxygen, Denies snoring Gastrointestinal: Denies abdominal pain, Denies bloating, Denies BRBPR, Denies heartburn, Denies melena, Denies nausea, Denies vomiting Genitourinary: Reports nocturia, Denies dysuria Musculoskeletal: Denies myalgias Musculoskeletal: absent: ankle pain, ankle stiffness, ankle swelling, elbow pain, elbow stiffness, elbow swelling, foot pain, foot stiffness, foot swelling, hand pain, hand stiffness, hand swelling, hip pain, hip stiffness, hip swelling, knee pain, knee stiffness, knee swelling, shoulder pain, shoulder stiffness, shoulder swelling, wrist pain, wrist stiffness, wrist swelling Integumentary: Denies pruritus, Denies rash Neurological: Denies numbness, Denies weakness Psychiatric: Denies anxiety, Denies depression Endocrine: Denies fatigue, Denies weight change Past Medical History Past Medical History: Asthma, Diabetes Mellitus, Hyperlipidemia, Hypertension, Osteoarthritis (OA) Additional Past Medical History / Comment(s): Persistent asthma, NIDDM II- arthritis R knee, current L ankle sprain History of Any Multi-Drug Resistant Organisms: None Reported Past Surgical History: Hernia Repair Additional Past Surgical History / Comment(s): Umbilical hernia repair Past Anesthesia/Blood Transfusion Reactions: No Reported Reaction, Motion Sickness Smoking Status: Former smoker - Past Family History Mother History Unknown: Yes Family Medical History: Cancer Additional Family Medical History / Comment(s): Mother of ovarian cancer at the age of 78yrs. Father History Unknown: Yes Family Medical History: GI Bleed Additional Family Medical History / Comment(s): Father in his 30s of a internal bleed. Brother(s) Family Medical History: No Reported History Sister(s) Family Medical History: No Reported History Daughter(s) Family Medical History: Unable to Obtain Medications and Allergies Home Medications Medication Instructions Recorded Confirmed Type Albuterol Sulfate [Proair Hfa] 2 puff INHALATION RT-QID PRN 05/18/18 01/20/19 History Montelukast Sodium [Singulair] 10 mg PO DAILY 05/18/18 01/20/19 History Albuterol Nebulized [Ventolin 2.5 mg INHALATION RT-Q4H PRN 07/11/18 01/20/19 History Nebulized] [place]-3 Fatty Acids [[place]-3] 1,000 mg PO DAILY 09/03/18 01/20/19 History metFORMIN HCL [metFORMIN HCL ER] 750 mg PO AC-SUPPER 09/03/18 01/20/19 History Lisinopril 20 mg PO DAILY@1700 10/30/18 01/20/19 History Multivitamins, Thera [Multivitamin 1 tab PO DAILY 12/28/18 01/20/19 History (formulary)] guaiFENesin [Mucinex] 600 mg PO Q12H 01/18/19 01/20/19 History predniSONE 50 mg PO DAILY #5 tab 01/18/19 01/20/19 Rx Azithromycin [Zithromax Z-pack] See Taper PO DAILY 01/20/19 01/20/19 History Allergies Allergy/AdvReac Type Severity Reaction Status Date / Time No Known Allergies Allergy Verified 01/20/19 06:56 Physical Exam Vitals: Vital Signs Temp Pulse Pulse Resp BP BP Pulse Ox 01/20/19 11:15 104 H 01/20/19 11:00 100 01/20/19 10:10 98.3 F 104 H 18 133/83 95 01/20/19 09:41 98.2 F 103 H 22 155/79 96 01/20/19 09:34 105 H 01/20/19 09:22 96 01/20/19 07:49 109 H 22 131/68 96 01/20/19 07:45 109 H 01/20/19 07:32 99 01/20/19 06:31 98.7 F 112 H 20 134/77 94 L Intake and Output 01/19/19 01/20/19 01/20/19 22:59 06:59 14:59 Other: Weight 145.15 kg - Constitutional General appearance: mild distress, morbidly obese - EENT Eyes: anicteric sclerae, EOMI, PERRLA, no ptosis, no scleral icterus, normal appearance ENT: hearing grossly normal, NA/AT, normal oropharynx, no thrush Ears: bilateral: normal - Neck Neck: no lymphadenopathy, normal ROM, no rigidity, no stridor, no thyromegaly Carotids: bilateral: upstroke normal - Respiratory Respiratory: bilateral: diminished, wheezing, prolonged expiration, negative: dullness, rales, rhonchi, prolonged inspiration - Cardiovascular Rhythm: regular Heart sounds: normal: S1, S2 Abnormal Heart Sounds: no systolic murmur, no rub, no S3 Gallop, no S4 Gallop, no click - Gastrointestinal General gastrointestinal: normal bowel sounds, soft, no splenomegaly, no tenderness, no umbilical hernia, no ventral hernia - Integumentary Integumentary: normal, normal turgor - Neurologic Neurologic: CNII-XII intact - Musculoskeletal Musculoskeletal: gait normal - Psychiatric Psychiatric: A&O x's 3, appropriate affect, intact judgment & insight Results CBC & Chem 7: 01/20/19 06:40 01/20/19 06:40 Labs: Abnormal Lab Results - Last 24 Hours (Table) 01/20/19 01/20/19 01/20/19 Range/Units 06:40 06:40 11:35 APTT 21.6 L (22.0-30.0) sec Chloride 108 H (98-107) mmol/L Glucose 143 H (74-99) mg/dL POC Glucose (mg/dL) 153 H (75-99) mg/dL AST 14 L (17-59) U/L ALT 17 L (21-72) U/L Total Protein 6.1 L (6.3-8.2) g/dL Thrombosis Risk Factor Assmnt - DVT/VTE Prophylaxis DVT/VTE Prophylaxis: Pharmacologic Prophylaxis ordered, Mechanical Prophylaxis ordered - Choose All That Apply Any of the Below Risk Factors Present?: Yes Each Factor Represents 1 point: Age 41-60 years, Obesity (BMI >25) Other Risk Factors: No Other congenital or acquired thrombophilia - If yes, enter type in comment: No Thrombosis Risk Factor Assessment Total Risk Factor Score: 2 Thrombosis Risk Factor Assessment Level: Low Risk Assessment and Plan Assessment: Assessment and plan: 1. Acute respiratory insufficiency due to acute asthma exacerbation. Start Solu-Medrol 60 mg IV push every 6 hours, DuoNeb 3 mg nebulization 4 times every day, Pulmicort 1 mg nebulization twice every day, Zithromax 500 mg orally once every day, pulmonary consultation. 2. Mild persistent asthma. Continue treatment as in paragraph #1. 3. Hypertension and hypertensive cardiovascular disease. Continue patient on lisinopril 10 mg orally once every day. 4. Hyperlipidemia. Low-cholesterol diet. 5. Osteoarthritis. 6. 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 Continue patient on sliding scale insulin. Continue metformin 500 mg orally twice every day. Became before each meal and at bedtime. 7. Morbid obesity with obstructive sleep apnea currently has no CPAP. 8. DVT prophylaxis. Heparin 5000 units subcutaneously every 8 hours 9. GI prophylaxis. Continue Protonix 40 mg orally once every day. 10. Observation. 11. Full code.
[2019-01-20] MEDS: AZITHROMYCIN 500 MG TAB PO SCH (16:32)
[2019-01-20 16:56] LABS: Glucose,Whole Blood 212 mg/dL (75-99)
[2019-01-20] MEDS: metFORMIN 500 MG TAB PO SCH (17:06)
[2019-01-20] MEDS: HEPARIN SODIUM,PORCINE 5,000 UNIT/ML 1 ML VIAL SQ SCH ×2 (17:06→20:42)
[2019-01-20] MEDS: LISINOPRIL 20 MG TAB PO SCH (17:06)
[2019-01-20 20:08] LABS: Glucose,Whole Blood 165 mg/dL (75-99)
[2019-01-21 06:42] LABS: Glucose,Whole Blood 128 mg/dL (75-99)
[2019-01-21] MEDS: IPRATROPIUM-ALBUTEROL 3 ML NEB INHALATION SCH ×4 (08:01→18:55)
[2019-01-21 08:08] LABS: Basophils % (A) 0 %; Eosinophils % (A) 0 %; HCT 46.4 % (39.0-53.0); HGB 14.8 gm/dL (13.0-17.5); Lymphocytes # (A) 0.7 k/uL (1.0-4.8); Lymphocytes % (A) 6 %; MCH 29.7 pg (25.0-35.0); Mean Platelet Volume 6.7; Monocytes # (A) 0.7 k/uL (0-1.0); Monocytes % (A) 6 %; Neutrophils # (A) 10.7 k/uL (1.3-7.7); Neutrophils % (A) 87 %; Platelet Count 326 k/uL (150-450); RBC 4.99 m/uL (4.30-5.90); RDW 14.8 % (11.5-15.5); WBC 12.2 k/uL (3.8-10.6)
[2019-01-21] MEDS: INSULIN ASPART (NovoLOG) 100 UNIT/ML VIAL SQ SCH ×4 (08:17→20:50)
[2019-01-21] MEDS: HEPARIN SODIUM,PORCINE 5,000 UNIT/ML 1 ML VIAL SQ SCH ×2 (08:23→16:53)
[2019-01-21] MEDS: MONTELUKAST 10 MG TAB PO SCH (08:23)
[2019-01-21] MEDS: AZITHROMYCIN 500 MG TAB PO SCH (08:23)
[2019-01-21] MEDS: methylPREDNISolone SOD SUCCI 125 MG/2 ML VIAL IV SCH (08:23)
[2019-01-21] MEDS: metFORMIN 500 MG TAB PO SCH ×2 (08:23→16:54)
[2019-01-21] MEDS: PANTOPRAZOLE 40 MG TABLET PO SCH (08:23)
[2019-01-21 08:35] LABS: ALT 14 U/L (21-72); AST 14 U/L (17-59); Albumin 3.9 g/dL (3.5-5.0); Alkaline Phosphatase 57 U/L (38-126); Anion Gap 8 mmol/L; Blood Urea Nitrogen 21 mg/dL (9-20); Calcium 9.3 mg/dL (8.4-10.2); Carbon Dioxide 28 mmol/L (22-30); Chloride 104 mmol/L (98-107); Glucose 165 mg/dL (74-99); Potassium 4.7 mmol/L (3.5-5.1); Sodium 140 mmol/L (137-145); Total Bilirubin 0.5 mg/dL (0.2-1.3); Total Protein 6.5 g/dL (6.3-8.2)
[2019-01-21] MEDS: methylPREDNISolone SOD SUCCI 40 MG/ML 1 ML VIAL IV SCH ×3 (11:11→23:07)
[2019-01-21] MEDS: guaiFENesin 600 MG TABLET.ER PO SCH ×2 (11:11→23:07)
[2019-01-21 11:42] LABS: Glucose,Whole Blood 134 mg/dL (75-99)
--- NOTE | 2019-01-21 11:48 | P.CNPUL ---
History of Present Illness Consult date: 01/21/19 Reason for consult: dyspnea, asthma Chief complaint: Shortness of breath History of present illness: This is a 58-year-old gentleman who presented to the hospital complaining of shortness of breath. He states that then ongoing for the last 1-2 months. He states he's been in and out of the emergency department several times. Most recently he was given a Z-Gama and prednisone which did not help him. He does not wear home oxygen. He states he does have a cough and sometimes produces phlegm but feels like he gets it gets stuck. He does state Mucinex helps. He denies fevers and chills. He quit smoking in the . He does have a history of asthma and ALLERGIES. Claritin helps is head congestion. He is unsure if he has obstructive sleep apnea. He was supposed to have a sleep study but never had it done. He was also supposed to have a pulmonary function test but canceled on multiple occasions. He does complain of wheezing. He uses albuterol nebulizer at home. Review of Systems All systems: negative Past Medical History Past Medical History: Asthma, Diabetes Mellitus, Hyperlipidemia, Hypertension, Osteoarthritis (OA) Additional Past Medical History / Comment(s): Persistent asthma, NIDDM II- arthritis R knee, current L ankle sprain History of Any Multi-Drug Resistant Organisms: None Reported Past Surgical History: Hernia Repair Additional Past Surgical History / Comment(s): Umbilical hernia repair Past Anesthesia/Blood Transfusion Reactions: No Reported Reaction, Motion Sickness Smoking Status: Former smoker - Past Family History Mother History Unknown: Yes Family Medical History: Cancer Additional Family Medical History / Comment(s): Mother of ovarian cancer at the age of 78yrs. Father History Unknown: Yes Family Medical History: GI Bleed Additional Family Medical History / Comment(s): Father in his 30s of a internal bleed. Brother(s) Family Medical History: No Reported History Sister(s) Family Medical History: No Reported History Daughter(s) Family Medical History: Unable to Obtain Medications and Allergies Home Medications Medication Instructions Recorded Confirmed Type Albuterol Sulfate [Proair Hfa] 2 puff INHALATION RT-QID PRN 05/18/18 01/20/19 History Montelukast Sodium [Singulair] 10 mg PO DAILY 05/18/18 01/20/19 History Albuterol Nebulized [Ventolin 2.5 mg INHALATION RT-Q4H PRN 07/11/18 01/20/19 History Nebulized] Prompton-3 Fatty Acids [Prompton-3] 1,000 mg PO DAILY 09/03/18 01/20/19 History metFORMIN HCL [metFORMIN HCL ER] 750 mg PO AC-SUPPER 09/03/18 01/20/19 History Lisinopril 20 mg PO DAILY@1700 10/30/18 01/20/19 History Multivitamins, Thera [Multivitamin 1 tab PO DAILY 12/28/18 01/20/19 History (formulary)] guaiFENesin [Mucinex] 600 mg PO Q12H 01/18/19 01/20/19 History predniSONE 50 mg PO DAILY #5 tab 01/18/19 01/20/19 Rx Azithromycin [Zithromax Z-pack] See Taper PO DAILY 01/20/19 01/20/19 History Allergies Allergy/AdvReac Type Severity Reaction Status Date / Time No Known Allergies Allergy Verified 01/20/19 06:56 Physical Exam Osteopathic Statement: *. No significant issues noted on an osteopathic structural exam other than those noted in the History and Physical/Consult. Vitals: Vital Signs Temp Pulse Pulse Pulse Resp BP Pulse Ox 01/21/19 08:14 92 01/21/19 08:01 92 01/21/19 07:20 98.3 F 102 H 18 139/82 96 01/21/19 03:56 15 01/21/19 02:40 88 01/21/19 02:31 88 01/21/19 00:26 98.2 F 85 15 146/68 01/20/19 23:30 17 01/20/19 20:31 98 01/20/19 20:20 96 01/20/19 20:00 17 01/20/19 19:09 98.0 F 95 17 134/75 96 01/20/19 16:00 97.8 F 98 104 H 18 148/90 96 01/20/19 15:33 99 01/20/19 15:24 97 01/20/19 12:00 104 H 18 Intake and Output 01/20/19 01/21/19 01/21/19 22:59 06:59 14:59 Intake Total 440 Balance 440 Intake: Oral 240 Other 200 Other: Voiding Method Toilet Toilet # Voids 1 Gen.: Patient is alert and oriented 3, no acute distress, morbidly obese Cardiovascular: Regular rate and rhythm, S1/S2 Lungs: Bilateral expiratory wheezing with prolonged expiration Abdomen: Soft nontender nondistended positive bowel sounds Extremities: No edema Results - Laboratory Findings CBC and BMP: 01/21/19 07:27 01/21/19 07:27 PT/INR, D-dimer PT 9.8 sec (9.0-12.0) 01/20/19 06:40 INR 0.9 (<1.2) 01/20/19 06:40 Abnormal lab findings: Abnormal Labs 01/20/19 01/20/19 01/20/19 06:40 06:40 11:35 WBC Neutrophils # Lymphocytes # APTT 21.6 L Chloride 108 H BUN Glucose 143 H POC Glucose (mg/dL) 153 H AST 14 L ALT 17 L Total Protein 6.1 L 01/20/19 01/20/19 01/21/19 16:52 20:06 06:34 WBC Neutrophils # Lymphocytes # APTT Chloride BUN Glucose POC Glucose (mg/dL) 212 H 165 H 128 H AST ALT Total Protein 01/21/19 01/21/19 07:27 07:27 WBC 12.2 H Neutrophils # 10.7 H Lymphocytes # 0.7 L APTT Chloride BUN 21 H Glucose 165 H POC Glucose (mg/dL) AST 14 L ALT 14 L Total Protein - Diagnostic Findings Chest x-ray: report reviewed, image reviewed Assessment and Plan Assessment: Acute hypoxic respiratory failure Acute exacerbation of severe persistent asthma, ALLERGIC type Morbid obesity Suspect underlying obstructive sleep apnea Hypertension Dyslipidemia Osteoarthritis Diabetes mellitus type 2 O2 to maintain saturation greater than or equal to 90% Pulmicort and Perforomist Duo nebs ABX: Azithromycin Singulair Steroid taper Incentive spirometry and pulmonary hygiene Mucinex GI and DVT prophylaxis Consider biologic as outpatient Outpatient pulmonary function test Thank you for this consultation we'll continue to follow along
[2019-01-21] MEDS: LORATADINE 10 MG TAB PO SCH (13:05)
--- NOTE | 2019-01-21 16:06 | P.PN ---
Subjective Progress Note Date: 01/21/19 This is a 58-year-old male one of Dr. Zamora with a previous medical history significant for mild persistent asthma, hypertension and hypertensive cardio vascular disease, hyperlipidemia, psoriatic arthritis, morbid obesity with sleep apnea currently has no CPAP, patient was seen in the emergency [facility] on 01/15/2019 for an acute exacerbation of asthma he was given nebulized treatment he was sent home and was started on prednisone 60 mg orally once every day along with a Z-Gama patient started taking the medication however he has been using his nebulized treatment more than 5 times every day without any relief ended up coming back to the ER today with increased shortness of breath, appendectomy, was done in the ER showed 250 mL, patient did not recover from [id number] breathing treatments so he was admitted to the hospital for acute exacerbation of asthma he was started on Solu-Medrol 60 mg IV push every 6 hours as well as nebulized treatment and pulmonary consultation was obtained from Dr. PATIENCE Griffith. 01/21 patient has been seen by Dr. Lee and patient started on Perforomist and Pulmicort. We'll decrease IV Medrol to 40 mg IV every 8 hours. Patient's lungs are sounding improved from yesterday. Peak flow is at 350. The patient does state that he is feeling better from yesterday a little bit but not back to his baseline. We will plan to monitor overnight and plan for discharge probably tomorrow. Review of Systems Constitutional: Denies anorexia, Denies chronic headaches, Denies chronic pain, Denies lethargy, Denies weakness Eyes: denies blurred vision, denies bulging eye, denies decreased vision Ears, nose, mouth and throat: Denies dysphagia, Denies neck fullness/pressure, Denies swelling in throat, Denies sore throat Cardiovascular: Reports decreased exercise tolerance, Reports dyspnea on exertion, Reports shortness of breath, Denies chest pain, Denies lightheadedness, Denies rapid heart beat, Denies syncope Respiratory: Reports cough, Reports cough with sputum, Reports sleep apnea, Reports wheezing, Denies congestion, Denies home oxygen Gastrointestinal: Denies abdominal pain, Denies bloating, Denies BRBPR, Denies heartburn, Denies melena, Denies nausea, Denies vomiting Genitourinary: Reports nocturia, Denies dysuria Musculoskeletal: Denies myalgias Musculoskeletal: absent: ankle pain, ankle stiffness, ankle swelling, elbow pain, elbow stiffness, elbow swelling, foot pain, foot stiffness, foot swelling, hand pain, hand stiffness, hand swelling, hip pain, hip stiffness, hip swelling, knee pain, knee stiffness, knee swelling, shoulder pain, shoulder stiffness, shoulder swelling, wrist pain, wrist stiffness, wrist swelling Integumentary: Denies pruritus, Denies rash Neurological: Denies numbness, Denies weakness Psychiatric: Denies anxiety, Denies depression Endocrine: Denies fatigue, Denies weight change Objective - Vital Signs Vital signs: Vital Signs Temp 98.3 F 01/21/19 07:20 Pulse 92 01/21/19 08:14 Resp 18 01/21/19 07:20 BP 139/82 01/21/19 07:20 Pulse Ox 96 01/21/19 07:20 Intake & Output 01/20/19 01/21/19 01/21/19 18:59 06:59 18:59 Intake Total 680 Balance 680 Intake: Oral 480 Other 200 Other: Voiding Method Toilet Toilet # Voids 1 - Exam General appearance: no distress, morbidly obese - EENT Eyes: anicteric sclerae, EOMI, PERRLA, no ptosis, no scleral icterus, normal appearance ENT: hearing grossly normal, NA/AT, normal oropharynx, no thrush Ears: bilateral: normal - Neck Neck: no lymphadenopathy, normal ROM, no rigidity, no stridor, no thyromegaly Carotids: bilateral: upstroke normal - Respiratory Respiratory: bilateral: diminished, wheezing, prolonged expiration, negative: dullness, rales, rhonchi, prolonged inspiration - Cardiovascular Rhythm: regular Heart sounds: normal: S1, S2 Abnormal Heart Sounds: no systolic murmur, no rub, no S3 Gallop, no S4 Gallop, no click - Gastrointestinal General gastrointestinal: normal bowel sounds, soft, no splenomegaly, no tenderness, no umbilical hernia, no ventral hernia - Integumentary Integumentary: normal, normal turgor - Neurologic Neurologic: CNII-XII intact - Musculoskeletal Musculoskeletal: gait normal - Psychiatric Psychiatric: A&O x's 3, appropriate affect, intact judgment & insight - Labs CBC & Chem 7: 01/21/19 07:27 01/21/19 07:27 Labs: Abnormal Lab Results - Last 24 Hours (Table) 01/20/19 01/20/19 01/21/19 Range/Units 16:52 20:06 06:34 WBC (3.8-10.6) k/uL Neutrophils # (1.3-7.7) k/uL Lymphocytes # (1.0-4.8) k/uL BUN (9-20) mg/dL Glucose (74-99) mg/dL POC Glucose (mg/dL) 212 H 165 H 128 H (75-99) mg/dL AST (17-59) U/L ALT (21-72) U/L 01/21/19 01/21/19 01/21/19 Range/Units 07:27 07:27 11:38 WBC 12.2 H (3.8-10.6) k/uL Neutrophils # 10.7 H (1.3-7.7) k/uL Lymphocytes # 0.7 L (1.0-4.8) k/uL BUN 21 H (9-20) mg/dL Glucose 165 H (74-99) mg/dL POC Glucose (mg/dL) 134 H (75-99) mg/dL AST 14 L (17-59) U/L ALT 14 L (21-72) U/L Assessment and Plan Plan: 1. Acute respiratory insufficiency due to acute asthma exacerbation. Decrease Solu-Medrol 40 mg IV push every 8 hours, DuoNeb 3 mg nebulization 4 times every day, Pulmicort 1 mg nebulization twice every day, Zithromax 500 mg orally once every day, pulmonary consultation appreciated. Perforomist added. 2. Mild persistent asthma. Continue treatment as in paragraph #1. 3. Hypertension and hypertensive cardiovascular disease. Continue patient on lisinopril 10 mg orally once every day. 4. Hyperlipidemia. Low-cholesterol diet. 5. Osteoarthritis. 6. 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 Continue patie nt on sliding scale insulin. Continue metformin 500 mg orally twice every day. Became before each meal and at bedtime. 7. Morbid obesity with obstructive sleep apnea currently has no CPAP. 8. DVT prophylaxis. Heparin 5000 units subcutaneously every 8 hours 9. GI prophylaxis. Continue Protonix 40 mg orally once every day. 10. Full code. Discharge plan: Home tomorrow Impression and plan of care have been directed as dictated by the signing physician. Kiley Diaz nurse practitioner acting as scribe for signing physician.
[2019-01-21 16:35] LABS: Glucose,Whole Blood 157 mg/dL (75-99)
[2019-01-21] MEDS: LISINOPRIL 20 MG TAB PO SCH (16:54)
[2019-01-21] MEDS: BUDESONIDE 0.5 MG/2 ML NEBU INHALATION SCH (18:55)
[2019-01-21] MEDS: FORMOTEROL FUMARATE 20 MCG/2 ML NEBU INHALATION SCH (18:55)
[2019-01-21 20:27] LABS: Glucose,Whole Blood 192 mg/dL (75-99)
[2019-01-22] MEDS: HEPARIN SODIUM,PORCINE 5,000 UNIT/ML 1 ML VIAL SQ SCH ×3 (01:27→18:07)
[2019-01-22 07:40] LABS: Glucose,Whole Blood 151 mg/dL (75-99)
[2019-01-22] MEDS: IPRATROPIUM-ALBUTEROL 3 ML NEB INHALATION SCH ×4 (07:42→20:06)
[2019-01-22] MEDS: FORMOTEROL FUMARATE 20 MCG/2 ML NEBU INHALATION SCH ×2 (07:42→20:06)
[2019-01-22] MEDS: BUDESONIDE 0.5 MG/2 ML NEBU INHALATION SCH ×2 (07:42→20:05)
[2019-01-22] MEDS: metFORMIN 500 MG TAB PO SCH ×2 (08:37→18:07)
[2019-01-22] MEDS: MONTELUKAST 10 MG TAB PO SCH (08:37)
[2019-01-22] MEDS: PANTOPRAZOLE 40 MG TABLET PO SCH (08:37)
[2019-01-22] MEDS: methylPREDNISolone SOD SUCCI 40 MG/ML 1 ML VIAL IV SCH ×2 (08:37→18:07)
[2019-01-22] MEDS: LORATADINE 10 MG TAB PO SCH (08:37)
[2019-01-22] MEDS: INSULIN ASPART (NovoLOG) 100 UNIT/ML VIAL SQ SCH ×4 (08:42→21:37)
[2019-01-22] MEDS: AZITHROMYCIN 500 MG TAB PO SCH (10:32)
[2019-01-22 12:16] LABS: Glucose,Whole Blood 129 mg/dL (75-99)
--- NOTE | 2019-01-22 14:59 | P.PN ---
Subjective Progress Note Date: 01/22/19 This is a 58-year-old male one of Dr. Zamora with a previous medical history significant for mild persistent asthma, hypertension and hypertensive cardio vascular disease, hyperlipidemia, psoriatic arthritis, morbid obesity with sleep apnea currently has no CPAP, patient was seen in the emergency d [facility] on 01/15/2019 for an acute exacerbation of asthma he was given nebulized treatment he was sent home and was started on prednisone 60 mg orally once every day along with a Z-Gama patient started taking the medication however he has been using his nebulized treatment more than 5 times every day without any relief ended up coming back to the ER today with increased shortness of breath, appendectomy, was done in the ER showed 250 mL, patient did not recover from [id number] breathing treatments so he was admitted to the hospital for acute exacerbation of asthma he was started on Solu-Medrol 60 mg IV push every 6 hours as well as nebulized treatment and pulmonary consultation was obtained from Dr. PATIENCE Griffith. 01/21 patient has been seen by Dr. Lee and patient started on Perforomist and Pulmicort. We'll decrease IV Medrol to 40 mg IV every 8 hours. Patient's lungs are sounding improved from yesterday. Peak flow is at 350. The patient does state that he is feeling better from yesterday a little bit but not back to his baseline. We will plan to monitor overnight and plan for discharge probably tomorrow. 01/22: Patient continues to be tight with wheezing. He is on Solu-Medrol 40 mg every 8 hours which we will not change. He denies having any sore throat, abdominal pain. No edema. Review of Systems Constitutional: Denies anorexia, Denies chronic headaches, Denies chronic pain, Denies lethargy, Denies weakness Eyes: denies blurred vision, denies bulging eye, denies decreased vision Ears, nose, mouth and throat: Denies dysphagia, Denies neck fullness/pressure, Denies swelling in throat, Denies sore throat Cardiovascular: Reports decreased exercise tolerance, Reports dyspnea on exertion, Reports shortness of breath, Denies chest pain, Denies light headedness, Denies rapid heart beat, Denies syncope, denies edema Respiratory: Reports cough, Reports cough with sputum, Reports sleep apnea, Reports wheezing, Denies congestion, Denies home oxygen Gastrointestinal: Denies abdominal pain, Denies bloating, Denies BRBPR, Denies heartburn, Denies melena, Denies nausea, Denies vomiting Genitourinary: Reports nocturia, Denies dysuria Musculoskeletal: Denies myalgias Musculoskeletal: absent: ankle pain, ankle stiffness, ankle swelling, elbow pain, elbow stiffness, elbow swelling, foot pain, foot stiffness, foot swelling, hand pain, hand stiffness, hand swelling, hip pain, hip stiffness, hip swelling, knee pain, knee stiffness, knee swelling, shoulder pain, shoulder stiffness, shoulder swelling, wrist pain, wrist stiffness, wrist swelling Integumentary: Denies pruritus, Denies rash Neurological: Denies numbness, Denies weakness Psychiatric: Denies anxiety, Denies depression Endocrine: Denies fatigue, Denies weight change Objective - Vital Signs Vital signs: Vital Signs Temp 97.9 F 01/22/19 06:59 Pulse 82 01/22/19 08:06 Resp 18 01/22/19 08:03 BP 130/80 01/22/19 06:59 Pulse Ox 95 01/22/19 06:59 Intake & Output 01/21/19 01/22/19 01/22/19 18:59 06:59 18:59 Intake Total 920 240 Balance 920 240 Intake: Oral 720 240 Other 200 Other: Voiding Method Toilet Toilet # Voids 2 1 1 - Exam General appearance: no distress, morbidly obese - EENT Eyes: anicteric sclerae, EOMI, PERRLA, no ptosis, no scleral icterus, normal appearance ENT: hearing grossly normal, NA/AT, normal oropharynx, no thrush Ears: bilateral: normal - Neck Neck: no lymphadenopathy, normal ROM, no rigidity, no stridor, no thyromegaly Carotids: bilateral: upstroke normal - Respiratory Respiratory: bilateral: diminished, wheezing, prolonged expiration, negative: dullness, rales, rhonchi, prolonged inspiration - Cardiovascular Rhythm: regular Heart sounds: normal: S1, S2 Abnormal Heart Sounds: no systolic murmur, no rub, no S3 Gallop, no S4 Gallop, no click - Gastrointestinal General gastrointestinal: normal bowel sounds, soft, no splenomegaly, no tenderness, no umbilical hernia, no ventral hernia - Integumentary Integumentary: normal, normal turgor - Neurologic Neurologic: CNII-XII intact - Musculoskeletal Musculoskeletal: gait normal - Psychiatric Psychiatric: A&O x's 3, appropriate affect, intact judgment & insight - Labs CBC & Chem 7: 01/21/19 07:27 01/21/19 07:27 Labs: Abnormal Lab Results - Last 24 Hours (Table) 01/21/19 01/21/19 01/21/19 Range/Units 11:38 16:32 20:13 POC Glucose (mg/dL) 134 H 157 H 192 H (75-99) mg/dL 01/22/19 Range/Units 07:01 POC Glucose (mg/dL) 151 H (75-99) mg/dL Assessment and Plan Plan: 1. Acute respiratory insufficiency due to acute asthma exacerbation. Continue Solu-Medrol 40 mg IV push every 8 hours, DuoNeb 3 mg nebulization 4 times every day, Pulmicort 1 mg nebulization twice every day, Zithromax 500 mg orally once every day, pulmonary consultation appreciated. Perforomist added. 2. Mild persistent asthma. Continue treatment as in paragraph #1. 3. Hypertension and hypertensive cardiovascular disease. Continue patient on lisinopril 10 mg orally once every day. 4. Hyperlipidemia. Low-cholesterol diet. 5. Osteoarthritis. 6. 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 Continue patient on sliding scale insulin. Continue metformin 500 mg orally twice every day. Became before each meal and at bedtime. 7. Morbid obesity with obstructive sleep apnea currently has no CPAP. 8. DVT prophylaxis. Heparin 5000 units subcutaneously every 8 hours 9. GI prophylaxis. Continue Protonix 40 mg orally once every day. 10. Full code. Discharge plan: Home tomorrow Impression and plan of care have been directed as dictated by the signing physic ian. Kiley Diaz nurse practitioner acting as scribe for signing physician.
[2019-01-22] MEDS: guaiFENesin 600 MG TABLET.ER PO SCH (15:01)
--- NOTE | 2019-01-22 15:51 | P.PN ---
Subjective Progress Note Date: 01/22/19 01/22/2019: Patient seen and examined. Patient is resting in bed on room air. He states he is feeling a little bit better but is still very wheezy. He is complaining of cough and shortness of breath. He denies fevers and chills. He states that he is not yet ready to go home. Objective - Vital Signs Vital signs: Vital Signs Temp 97.7 F 01/22/19 14:02 Pulse 88 01/22/19 15:47 Resp 16 01/22/19 14:02 BP 147/88 01/22/19 14:02 Pulse Ox 94 L 01/22/19 14:02 Intake & Output 01/21/19 01/22/19 01/22/19 18:59 06:59 18:59 Intake Total 920 240 Balance 920 240 Intake: Oral 720 240 Other 200 Other: Voiding Method Toilet Toilet # Voids 2 1 2 - Exam Gen.: Patient is alert and oriented 3, no acute distress, morbidly obese Cardiovascular: Regular rate and rhythm, S1/S2 Lungs: Bilateral expiratory wheezing with prolonged expiration Abdomen: Soft nontender nondistended positive bowel sounds Extremities: No edema - Labs CBC & Chem 7: 01/21/19 07:27 01/21/19 07:27 Labs: Abnormal Lab Results - Last 24 Hours (Table) 01/21/19 01/21/19 01/22/19 Range/Units 16:32 20:13 07:01 POC Glucose (mg/dL) 157 H 192 H 151 H (75-99) mg/dL 01/22/19 Range/Units 12:03 POC Glucose (mg/dL) 129 H (75-99) mg/dL Assessment and Plan Assessment: Acute hypoxic respiratory failure Acute exacerbation of severe persistent asthma, ALLERGIC type Morbid obesity Suspect underlying obstructive sleep apnea Hypertension Dyslipidemia Osteoarthritis Diabetes mellitus type 2 O2 to maintain saturation greater than or equal to 90% Pulmicort and Perforomist Duo nebs ABX: Azithromycin Singulair Steroid taper Incentive spirometry and pulmonary hygiene Mucinex GI and DVT prophylaxis Consider biologic as outpatient Outpatient pulmonary function test
[2019-01-22 16:50] LABS: Glucose,Whole Blood 127 mg/dL (75-99)
[2019-01-22] MEDS: LISINOPRIL 20 MG TAB PO SCH (18:07)
[2019-01-22 21:13] LABS: Glucose,Whole Blood 141 mg/dL (75-99)
[2019-01-23] MEDS: HEPARIN SODIUM,PORCINE 5,000 UNIT/ML 1 ML VIAL SQ SCH ×2 (00:52→08:09)
[2019-01-23] MEDS: guaiFENesin 600 MG TABLET.ER PO SCH (00:52)
[2019-01-23] MEDS: methylPREDNISolone SOD SUCCI 40 MG/ML 1 ML VIAL IV SCH ×2 (00:52→08:09)
[2019-01-23 06:54] LABS: Glucose,Whole Blood 150 mg/dL (75-99)
[2019-01-23 07:20] VITALS: BP 144/87; RESP 16; TEMP 97.9
[2019-01-23] MEDS: MONTELUKAST 10 MG TAB PO SCH (08:08)
[2019-01-23] MEDS: LORATADINE 10 MG TAB PO SCH (08:09)
[2019-01-23] MEDS: PANTOPRAZOLE 40 MG TABLET PO SCH (08:09)
[2019-01-23] MEDS: metFORMIN 500 MG TAB PO SCH (08:09)
[2019-01-23] MEDS: INSULIN ASPART (NovoLOG) 100 UNIT/ML VIAL SQ SCH (08:09)
[2019-01-23] MEDS: BUDESONIDE 0.5 MG/2 ML NEBU INHALATION SCH (08:28)
[2019-01-23] MEDS: FORMOTEROL FUMARATE 20 MCG/2 ML NEBU INHALATION SCH (08:28)
[2019-01-23] MEDS: IPRATROPIUM-ALBUTEROL 3 ML NEB INHALATION SCH (08:28)
[2019-01-23 08:50] VITALS: PULSE 84
--- NOTE | 2019-01-23 09:05 | P.DS ---
Providers Date of admission: 01/20/19 09:05 Expected date of discharge: 01/23/19 Attending physician: Misael Prabhakar MD Consults: 01/20/19 11:57 Consult Physician Routine Consulting Provider: Riki Griffith Consult Reason/Comments: asthma exacerbation Do you want consulting provider notified?: Yes [facility]: This is a 58-year-old male one of Dr. Ferreira but most recently saw Dr. Lane with a previous medical history significant for mild persistent asthma, hypertension and hypertensive cardio vascular disease, hyperlipidemia, psoriatic arthritis, morbid obesity with sleep apnea currently has no CPAP, patient was seen in the emergency department on 01/15/2019 for an acute exacerbation of asthma he was given nebulized treatment he was sent home and was started on prednisone 60 mg orally once every day along with a Z-Gama patient started taking the medication however he has been using his nebulized treatment more than 5 times every day without any relief ended up coming back to the ER today with increased shortness of breath, appendectomy, was done in the ER showed 250 mL, patient did not recover from swrf-ar-covt breathing treatments so he was admitted to the hospital for acute exacerbation of asthma he was started on Solu-Medrol 60 mg IV push every 6 hours as well as nebulized treatment and pulmonary consultation was obtained from Dr. PATIENCE Griffith. 01/21 patient has been seen by Dr. Lee and patient started on Perforomist and Pulmicort. We'll decrease IV Medrol to 40 mg IV every 8 hours. Patient's lungs are sounding improved from yesterday. Peak flow is at 350. The patient does state that he is feeling better from yesterday a little bit but not back to his baseline. We will plan to monitor overnight and plan for discharge probably tomorrow. 01/22: Patient continues to be tight with wheezing. He is on Solu-Medrol 40 mg every 8 hours which we will not change. He denies having any sore throat, abdominal pain. No edema. 01/23: Today, patient states his breathing is much improved. He has been walking the hallway and increasing his ambulation. He continues to have a cough but u nable to bring up sputum. He is off oxygen. We will plan for discharge home today in stable condition. Discharge diagnoses: 1. Acute respiratory insufficiency due to acute asthma exacerbation. 2. Mild persistent asthma. 3. Hypertension and hypertensive cardiovascular disease. 4. Hyperlipidemia. 5. Osteoarthritis. 6. 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 7. Morbid obesity with obstructive sleep apnea currently has no CPAP. Discharge plan: Home Impression and plan of care have been directed as dictated by the signing physic ian. Kiley Diaz nurse practitioner acting as scribe for signing physician. Patient Condition at Discharge: Good Plan - Discharge Summary Discharge Rx Participant: No New Discharge Prescriptions: New Loratadine [Claritin] 10 mg PO DAILY tab predniSONE 0 mg PO DIRECTED #30 tab Pantoprazole [Protonix] 40 mg PO AC-BRKFST #30 tablet. Azithromycin [Zithromax] 500 mg PO DAILY #3 tab Continue Montelukast Sodium [Singulair] 10 mg PO DAILY Albuterol Sulfate [Proair Hfa] 2 puff INHALATION RT-QID PRN PRN Reason: Shortness Of Breath Albuterol Nebulized [Ventolin Nebulized] 2.5 mg INHALATION RT-Q4H PRN PRN Reason: Shortness Of Breath metFORMIN HCL [metFORMIN HCL ER] 750 mg PO AC-SUPPER Chilmark-3 Fatty Acids [Chilmark-3] 1,000 mg PO DAILY Lisinopril 20 mg PO DAILY@1700 Multivitamins, Thera [Multivitamin (formulary)] 1 tab PO DAILY guaiFENesin [Mucinex] 600 mg PO Q12H predniSONE 50 mg PO DAILY #5 tab Discontinued Azithromycin [Zithromax Z-pack] See Taper PO DAILY Discharge Medication List Albuterol Sulfate [Proair Hfa] 2 puff INHALATION RT-QID PRN 05/18/18 [History] Montelukast Sodium [Singulair] 10 mg PO DAILY 05/18/18 [History] Albuterol Nebulized [Ventolin Nebulized] 2.5 mg INHALATION RT-Q4H PRN 07/11/18 [History] Chilmark-3 Fatty Acids [Chilmark-3] 1,000 mg PO DAILY 09/03/18 [History] metFORMIN HCL [metFORMIN HCL ER] 750 mg PO AC-SUPPER 09/03/18 [History] Lisinopril 20 mg PO DAILY@1700 10/30/18 [History] Multivitamins, Thera [Multivitamin (formulary)] 1 tab PO DAILY 12/28/18 [History] guaiFENesin [Mucinex] 600 mg PO Q12H 01/18/19 [History] predniSONE 50 mg PO DAILY #5 tab 01/18/19 [Rx] Azithromycin [Zithromax] 500 mg PO DAILY #3 tab 01/23/19 [Rx] Loratadine [Claritin] 10 mg PO DAILY tab 01/23/19 [Rx] Pantoprazole [Protonix] 40 mg PO DESIREE #30 tablet. 01/23/19 [Rx] predniSONE 0 mg PO DIRECTED #30 tab 01/23/19 [Rx] Follow up Appointment(s)/Referral(s): Roger Lane MD [REFERRING] - 1 Week (office closed please call Saturday to make appointment) Patient Instructions/Handouts: Prednisone (By mouth), Azithromycin (By mouth), Pantoprazole (By mouth), Asthma (DC) Activity/Diet/Wound Care/Special Instructions: Heart Healthy Diet continue to use incentive spirometry at home limit activity until follow up Discharge Disposition: HOME SELF-CARE
[2019-01-23] MEDS: AZITHROMYCIN 500 MG TAB PO SCH (09:17)
== END 2019-01-23 13:05 | disposition home or self-care (01) | DRG 202 ==
LOC: EC 06:30 → 1SOBS 09:05 → OBSVTOIN 01-21 15:11 → 4SSUR 01-22 06:21
PROVIDERS: ADMIT Internal Medicine; ATTEND Internal Medicine
DX: J45.51 Severe persistent asthma with (acute) exacerbation (principal); J96.01 Acute respiratory failure with hypoxia; Z68.41 Body mass index [BMI] 40.0-44.9, adult; E11.65 Type 2 diabetes mellitus with hyperglycemia; E66.01 Morbid (severe) obesity due to excess calories; E78.5 Hyperlipidemia, unspecified; G47.33 Obstructive sleep apnea (adult) (pediatric); I11.9 Hypertensive heart disease without heart failure; L40.50 Arthropathic psoriasis, unspecified; M17.11 Unilateral primary osteoarthritis, right knee; T38.0X5A Adverse effect of glucocorticoids and synthetic analogues, initial encounter; Z79.84 Long term (current) use of oral hypoglycemic drugs; Z79.899 Other long term (current) drug therapy; Z80.41 Family history of malignant neoplasm of ovary; Z87.891 Personal history of nicotine dependence
CPT/HCPCS: 36415; 71046; 80053; 84484; 85025; 85610; 85730; 93005; 94640; 94760; 99285

== ENCOUNTER 2019-02-15 08:07 | Emergency (ER) | payer BC ==
[2019-02-15 08:13] VITALS: RESP 18
[2019-02-15] MEDS ORDERED: SODIUM CHLORIDE 0.9% 1,000 ML IV STA (08:34)
[2019-02-15] MEDS ORDERED: ONDANSETRON 4 MG/2 ML VIAL IVP STA (08:34)
[2019-02-15] MEDS ORDERED: FAMOTIDINE 20 MG/2 ML VIAL IV STA (08:35)
--- NOTE | 2019-02-15 08:37 | ED ---
General Adult HPI - General Chief complaint: Abdominal Pain Stated complaint: nausea/stomach ache Time Seen by Provider: 02/15/19 08:21 Source: patient, RN notes reviewed Mode of arrival: ambulatory Limitations: no limitations - History of Present Illness Initial comments: Patient is a pleasant 58-year-old male presenting to the emergency Department with abdominal discomfort and nausea. Patient states abdominal discomfort is more a nauseated even sensation and not a bad pain. Patient does feel constipated, last bowel movement was yesterday. Patient has not vomited. Patient has had somewhat decreased appetite. Patient states when he eats his s ymptoms get worse. No fevers. This is not a chronic problem. - Related Data Home Medications Medication Instructions Recorded Confirmed Albuterol Sulfate [Proair Hfa] 2 puff INHALATION RT-QID PRN 05/18/18 01/20/19 Montelukast Sodium [Singulair] 10 mg PO DAILY 05/18/18 01/20/19 Albuterol Nebulized [Ventolin 2.5 mg INHALATION RT-Q4H PRN 07/11/18 01/20/19 Nebulized] Culver-3 Fatty Acids [Culver-3] 1,000 mg PO DAILY 09/03/18 01/20/19 metFORMIN HCL [metFORMIN HCL ER] 750 mg PO AC-SUPPER 09/03/18 01/20/19 Lisinopril 20 mg PO DAILY@1700 10/30/18 01/20/19 Multivitamins, Thera [Multivitamin 1 tab PO DAILY 12/28/18 01/20/19 (formulary)] guaiFENesin [Mucinex] 600 mg PO Q12H 01/18/19 01/20/19 Previous Rx's Medication Instructions Recorded predniSONE 50 mg PO DAILY #5 tab 01/18/19 Azithromycin [Zithromax] 500 mg PO DAILY #3 tab 01/23/19 Loratadine [Claritin] 10 mg PO DAILY tab 01/23/19 Pantoprazole [Protonix] 40 mg PO AC-BRKFST #30 tablet. 01/23/19 predniSONE 0 mg PO DIRECTED #30 tab 01/23/19 Pantoprazole [Protonix] 40 mg PO DAILY #30 tablet. 02/15/19 Allergies Allergy/AdvReac Type Severity Reaction Status Date / Time No Known Allergies Allergy Verified 02/15/19 08:13 Review of Systems ROS Statement: Those systems with pertinent positive or pertinent negative responses have been documented in the HPI. ROS Other: All systems not noted in ROS Statement are negative. Constitutional: Denies: fever Eyes: Denies: eye pain ENT: Denies: ear pain Respiratory: Denies: cough Cardiovascular: Denies: chest pain Endocrine: Denies: fatigue Gastrointestinal: Reports: abdominal pain, nausea, constipation. Denies: vomiting, diarrhea Genitourinary: Denies: dysuria Musculoskeletal: Denies: back pain Skin: Denies: rash Neurological: Denies: weakness Past Medical History Past Medical History: Asthma, Diabetes Mellitus, Hyperlipidemia, Hypertension, Osteoarthritis (OA) Additional Past Medical History / Comment(s): Persistent asthma, NIDDM II- arthritis R knee, current L ankle sprain History of Any Multi-Drug Resistant Organisms: None Reported Past Surgical History: Hernia Repair Additional Past Surgical History / Comment(s): Umbilical hernia repair Past Anesthesia/Blood Transfusion Reactions: No Reported Reaction, Motion Sickness Past Psychological History: No Psychological Hx Reported Smoking Status: Former smoker - Past Family History Mother History Unknown: Yes Family Medical History: Cancer Additional Family Medical History / Comment(s): Mother of ovarian cancer at the age of 78yrs. Father History Unknown: Yes Family Medical History: GI Bleed Additional Family Medical History / Comment(s): Father in his 30s of a internal bleed. Brother(s) Family Medical History: No Reported History Sister(s) Family Medical History: No Reported History Daughter(s) Family Medical History: Unable to Obtain General Exam Limitations: no limitations General appearance: alert, in no apparent distress Head exam: Present: atraumatic Eye exam: Present: normal appearance Neck exam: Present: normal inspection Respiratory exam: Present: normal lung sounds bilaterally Cardiovascular Exam: Present: regular rate, normal rhythm Expanded Peripheral pulses: 2+: Posterior Tibialis (R), Posterior Tibialis (L) GI/Abdominal exam: Present: soft, tenderness (Mild epigastric tenderness to palpation), normal bowel sounds. Absent: distended, guarding, rebound, rigid, p ulsatile mass Extremities exam: Present: normal inspection. Absent: pedal edema, calf tenderness Neurological exam: Present: alert Psychiatric exam: Present: normal affect, normal mood Skin exam: Present: normal color Course Vital Signs 02/15/19 08:11 Temperature 97.6 F Pulse Rate 97 Respiratory 18 Rate Blood Pressure 129/85 O2 Sat by Pulse 98 Oximetry Medical Decision Making - Medical Decision Making Patient reevaluated and resting comfortably in bed. Symptoms have improved with medication. Patient updated on results and need for follow-up, including need for follow-up with gastroenterology. - Lab Data Result diagrams: 02/15/19 08:35 02/15/19 08:35 Lab Results 02/15/19 02/15/19 02/15/19 Range/Units 08:35 08:35 08:35 WBC 7.5 (3.8-10.6) k/uL RBC 5.10 (4.30-5.90) m/uL Hgb 15.5 (13.0-17.5) gm/dL Hct 46.9 (39.0-53.0) % MCV 91.9 (80.0-100.0) fL MCH 30.3 (25.0-35.0) pg MCHC 33.0 (31.0-37.0) g/dL RDW 15.9 H (11.5-15.5) % Plt Count 306 (150-450) k/uL Neutrophils % 58 % Lymphocytes % 29 % Monocytes % 7 % Eosinophils % 3 % Basophils % 1 % Neutrophils # 4.3 (1.3-7.7) k/uL Lymphocytes # 2.2 (1.0-4.8) k/uL Monocytes # 0.6 (0-1.0) k/uL Eosinophils # 0.3 (0-0.7) k/uL Basophils # 0.0 (0-0.2) k/uL PT 9.6 (9.0-12.0) sec INR 0.9 (<1.2) APTT 25.9 (22.0-30.0) sec Sodium 140 (137-145) mmol/L Potassium 4.1 (3.5-5.1) mmol/L Chloride 108 H (98-107) mmol/L Carbon Dioxide 23 (22-30) mmol/L Anion Gap 9 mmol/L BUN 15 (9-20) mg/dL Creatinine 0.84 (0.66-1.25) mg/dL Est GFR (CKD-EPI)AfAm >90 (>60 ml/min/1.73 sqM) Est GFR (CKD-EPI)NonAf >90 (>60 ml/min/1.73 sqM) Glucose 108 H (74-99) mg/dL Calcium 9.2 (8.4-10.2) mg/dL Total Bilirubin 1.0 (0.2-1.3) mg/dL AST 19 (17-59) U/L ALT 25 (21-72) U/L Alkaline Phosphatase 58 (38-126) U/L Total Protein 6.8 (6.3-8.2) g/dL Albumin 4.1 (3.5-5.0) g/dL Amylase 49 (30-110) U/L Lipase 92 (23-300) U/L Urine Color Urine Appearance (Clear) Urine pH (5.0-8.0) Ur Specific [place] (1.001-1.035) Urine Protein (Negative) Urine Glucose (UA) (Negative) Urine Ketones (Negative) Urine Blood (Negative) Urine Nitrite (Negative) Urine Bilirubin (Negative) Urine Urobilinogen (<2.0) mg/dL Ur Leukocyte Esterase (Negative) 02/15/19 Range/Units 08:45 WBC (3.8-10.6) k/uL RBC (4.30-5.90) m/uL Hgb (13.0-17.5) gm/dL Hct (39.0-53.0) % MCV (80.0-100.0) fL MCH (25.0-35.0) pg MCHC (31.0-37.0) g/dL RDW (11.5-15.5) % Plt Count (150-450) k/uL Neutrophils % % Lymphocytes % % Monocytes % % Eosinophils % % Basophils % % Neutrophils # (1.3-7.7) k/uL Lymphocytes # (1.0-4.8) k/uL Monocytes # (0-1.0) k/uL Eosinophils # (0-0.7) k/uL Basophils # (0-0.2) k/uL PT (9.0-12.0) sec INR (<1.2) APTT (22.0-30.0) sec Sodium (137-145) mmol/L Potassium (3.5-5.1) mmol/L Chloride (98-107) mmol/L Carbon Dioxide (22-30) mmol/L Anion Gap mmol/L BUN (9-20) mg/dL Creatinine (0.66-1.25) mg/dL Est GFR (CKD-EPI)AfAm (>60 ml/min/1.73 sqM) Est GFR (CKD-EPI)NonAf (>60 ml/min/1.73 sqM) Glucose (74-99) mg/dL Calcium (8.4-10.2) mg/dL Total Bilirubin (0.2-1.3) mg/dL AST (17-59) U/L ALT (21-72) U/L Alkaline Phosphatase (38-126) U/L Total Protein (6.3-8.2) g/dL Albumin (3.5-5.0) g/dL Amylase (30-110) U/L Lipase (23-300) U/L Urine Color Yellow Urine Appearance Clear (Clear) Urine pH 5.0 (5.0-8.0) Ur Specific [place] 1.026 (1.001-1.035) Urine Protein Trace H (Negative) Urine Glucose (UA) Negative (Negative) Urine Ketones Negative (Negative) Urine Blood Negative (Negative) Urine Nitrite Negative (Negative) Urine Bilirubin Negative (Negative) Urine Urobilinogen <2.0 (<2.0) mg/dL Ur Leukocyte Esterase Negative (Negative) - Radiology Data Radiology results: report reviewed (Computed tomography scan of the abdomen pelvis shows diffuse thickening of the stomach wall, cannot exclude gastritis.) Disposition Clinical Impression: Abdominal pain, Gastritis Disposition: HOME SELF-CARE Condition: Stable Instructions (If sedation given, give patient instructions): Abdominal Pain (ED), Gastritis (ED) Additional Instructions: Please follow-up with primary care physician in the next day or 2 for recheck. Also follow-up with gastroenterology for endoscopy. Avoid alcohol. Avoid spicy food. Avoid tobacco. Return for increased pain, vomiting, fevers, worsening or changing symptoms or other concerns. Your prescription has been sent to your pharmacy Prescriptions: Pantoprazole [Protonix] 40 mg PO DAILY #30 tablet.dr Is patient prescribed a controlled substance at d/c from ED?: No Referrals: Rodney Ferreira MD [Primary Care Provider] - 1-2 days Time of Disposition: 10:01
[2019-02-15 08:43] LABS: Basophils % (A) 1 %; Eosinophils # (A) 0.3 k/uL (0-0.7); Eosinophils % (A) 3 %; HCT 46.9 % (39.0-53.0); HGB 15.5 gm/dL (13.0-17.5); Lymphocytes # (A) 2.2 k/uL (1.0-4.8); Lymphocytes % (A) 29 %; MCH 30.3 pg (25.0-35.0); MCV 91.9 fL (80.0-100.0); Mean Platelet Volume 6.5; Monocytes # (A) 0.6 k/uL (0-1.0); Monocytes % (A) 7 %; Neutrophils # (A) 4.3 k/uL (1.3-7.7); Neutrophils % (A) 58 %; Platelet Count 306 k/uL (150-450); RDW 15.9 % (11.5-15.5); WBC 7.5 k/uL (3.8-10.6)
[2019-02-15 08:53] LABS: INR 0.9 (<1.2); Partial Thromboplastin Time 25.9 sec (22.0-30.0); Prothrombin Time 9.6 sec (9.0-12.0)
[2019-02-15 08:56] LABS: ALT 25 U/L (21-72); AST 19 U/L (17-59); African American GFR (CKD) >90 (>60 ml/min/1.73 sqM); Albumin 4.1 g/dL (3.5-5.0); Alkaline Phosphatase 58 U/L (38-126); Amylase 49 U/L (30-110); Anion Gap 9 mmol/L; Blood Urea Nitrogen 15 mg/dL (9-20); Calcium 9.2 mg/dL (8.4-10.2); Carbon Dioxide 23 mmol/L (22-30); Chloride 108 mmol/L (98-107); Glucose 108 mg/dL (74-99); Lipase 92 U/L (23-300); Potassium 4.1 mmol/L (3.5-5.1); Sodium 140 mmol/L (137-145); Total Protein 6.8 g/dL (6.3-8.2)
[2019-02-15 09:16] LABS: Appearance,Urine Clear (Clear); Bilirubin,Urine Negative (Negative); Blood,Urine Negative (Negative); Color,Urine Yellow; Glucose,Urine (UA) Negative (Negative); Ketones,Urine Negative (Negative); Leukocyte Esterase,Urine Negative (Negative); Nitrite,Urine Negative (Negative); Protein,Urine Trace (Negative); Specific Gravity,Urine 1.026 (1.001-1.035); Urobilinogen,Urine <2.0 mg/dL (<2.0)
--- NOTE | 2019-02-15 09:30 | CT ---
EXAMINATION TYPE: CT abdomen pelvis w con DATE OF EXAM: 02/15/2019 REFERENCE: Previous study dated 01/05/2019. HISTORY: abdominal pain HISTORY: Umbilical pain, nausea CT DLP: 2631.8 mGy Automated exposure control for dose reduction was used. TECHNIQUE: Helical acquisition through the abdomen and pelvis was obtained without Oral Contrast and following intravenous administration of 100 mL of Isovue 300. The data was reformatted in axial, roscoe nal and sagittal projections. FINDINGS: Visualized portions of the lungs are clear. There is no pleural or pericardial fluid. The heart is not enlarged. Within the abdomen, the liver, spleen and gallbladder appear normal. Both adrenal glands appear normal. There is a nonobstructing 4.6 mm calculus in the posterior middle pole calyx of the right kidney. The re is no evidence of hydronephrosis. There is pyelotubular backflow bilaterally. This is sometimes se en in medullary sponge kidney. The pancreas is unremarkable. The stomach looks diffusely thickened but CT is notoriously poor at assessing stomach thickness. There is no significant retroperitoneal, iliac or inguinal adenopathy. The bladder is not distended. There is some thickening of the rectosigmoid junction. There is no significant diverticular change an d there is no radiographic evidence of diverticulitis. The appendix is normal. Small bowel loops are normal in caliber. There is an indirect inguinal hernia on the left containing fat only. There is a direct inguinal leyda ia on the right containing fat only. There is degenerative disc disease and facet arthropathy in the lower lumbar spine. There is mild hyp ertrophic spondylosis in the lower dorsal spine. IMPRESSION: 1. NONOBSTRUCTING RIGHT-SIDED NEPHROLITHIASIS. 2. DIFFUSELY THICKENED STOMACH WALL. I COULD NOT EXCLUDE GASTRITIS. PLEASE CORRELATE CLINICALLY. 3. MILD THICKENING OF THE RECTOSIGMOID JUNCTION. PLEASE CORRELATE FOR COLITIS. 4. BILATERAL INGUINAL HERNIAS CONTAINING FAT ONLY. 5. MILD DEGENERATIVE CHANGES WITHIN THE SPINE.
[2019-02-15 10:10] VITALS: BP 114/72; PULSE 87; TEMP 98
== END 2019-02-15 10:10 | disposition home or self-care (01) ==
LOC: EC 08:07
DX: K29.70 Gastritis, unspecified, without bleeding (principal); E11.9 Type 2 diabetes mellitus without complications; E78.5 Hyperlipidemia, unspecified; J45.909 Unspecified asthma, uncomplicated; I10 Essential (primary) hypertension; Z79.51 Long term (current) use of inhaled steroids; Z79.84 Long term (current) use of oral hypoglycemic drugs; Z79.899 Other long term (current) drug therapy; Z87.891 Personal history of nicotine dependence; Z98.890 Other specified postprocedural states; Z83.79 Family history of other diseases of the digestive system
CPT/HCPCS: 99284; 96374; 96375; 96361; 36415; 80053; 82150; 83690; 85025; 85610; 85730; 81003; 74177; J2405; Q9967

== ENCOUNTER 2019-03-20 09:54 | Emergency (ER) | payer BC ==
[2019-03-20] MEDS ORDERED: methylPREDNISolone SOD SUCCI 125 MG/2 ML VIAL IV STA (10:52)
[2019-03-20] MEDS ORDERED: IPRATROPIUM-ALBUTEROL 3 ML NEB INHALATION STA ×2 (10:52→13:04)
[2019-03-20] MEDS ORDERED: SODIUM CHLORIDE 0.9% 500 ML 500 ML IV STA (10:52)
--- NOTE | 2019-03-20 10:56 | ED ---
General Adult HPI - General Chief complaint: Shortness of Breath Stated complaint: SOB Time Seen by Provider: 03/20/19 10:10 Source: patient, RN notes reviewed Mode of arrival: ambulatory - History of Present Illness Initial comments: 58 -year-old male with a past medical history of asthma, NIDDM, hyperlipidemia, hypertension presents to the emergency department for a chief complaint of shortness of breath. Patient states this has been ongoing for weeks. States that he has a history of asthma and has been using his inhaler much more than normal. States he had a breathing treatment this morning as well. 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 States he has had some small intermittent chest pain but thinks this is likely muscular as it was sharp and lasted only seconds over the past few weeks. States he is not having any cough but does seem to be clearing his throat more often than normal. Denies congestion. States that that he is seemingly making this worse.Patient has no other complaints at this time including abdominal pain, nausea or vom iting, headache, or visual changes. - Related Data Home Medications Medication Instructions Recorded Confirmed Albuterol Sulfate [Proair Hfa] 2 puff INHALATION RT-QID PRN 05/18/18 01/20/19 Montelukast Sodium [Singulair] 10 mg PO DAILY 05/18/18 01/20/19 Albuterol Nebulized [Ventolin 2.5 mg INHALATION RT-Q4H PRN 07/11/18 01/20/19 Nebulized] [place]-3 Fatty Acids [[place]-3] 1,000 mg PO DAILY 09/03/18 01/20/19 metFORMIN HCL [metFORMIN HCL ER] 750 mg PO AC-SUPPER 09/03/18 01/20/19 Lisinopril 20 mg PO DAILY@1700 10/30/18 01/20/19 Multivitamins, Thera [Multivitamin 1 tab PO DAILY 12/28/18 01/20/19 (formulary)] guaiFENesin [Mucinex] 600 mg PO Q12H 01/18/19 01/20/19 Previous Rx's Medication Instructions Recorded predniSONE 50 mg PO DAILY #5 tab 01/18/19 Azithromycin [Zithromax] 500 mg PO DAILY #3 tab 01/23/19 Loratadine [Claritin] 10 mg PO DAILY tab 01/23/19 Pantoprazole [Protonix] 40 mg PO -BRKFST #30 tablet. 01/23/19 predniSONE 0 mg PO DIRECTED #30 tab 01/23/19 Pantoprazole [Protonix] 40 mg PO DAILY #30 tablet. 02/15/19 predniSONE 50 mg PO DAILY #5 tablet 03/20/19 Allergies Allergy/AdvReac Type Severity Reaction Status Date / Time No Known Allergies Allergy Verified 03/20/19 10:02 Review of Systems ROS Statement: Those systems with pertinent positive or pertinent negative responses have been documented in the HPI. ROS Other: All systems not noted in ROS Statement are negative. Past Medical History Past Medical History: Asthma, Diabetes Mellitus, Hyperlipidemia, Hypertension, Osteoarthritis (OA) Additional Past Medical History / Comment(s): Persistent asthma, NIDDM II- arthritis R knee, current L ankle sprain History of Any Multi-Drug Resistant Organisms: None Reported Past Surgical History: Hernia Repair Additional Past Surgical History / Comment(s): Umbilical hernia repair Past Anesthesia/Blood Transfusion Reactions: No Reported Reaction, Motion Sickness Past Psychological History: No Psychological Hx Reported Smoking Status: Former smoker Past Alcohol Use History: None Reported Past Drug Use History: None Reported - Past Family History Mother History Unknown: Yes Family Medical History: Cancer Additional Family Medical History / Comment(s): Mother of ovarian cancer at the age of 78yrs. Father History Unknown: Yes Family Medical History: GI Bleed Additional Family Medical History / Comment(s): Father in his 30s of a internal bleed. Brother(s) Family Medical History: No Reported History Sister(s) Family Medical History: No Reported History Daughter(s) Family Medical History: Unable to Obtain General Exam General appearance: alert, in no apparent distress Head exam: Present: atraumatic, normocephalic, normal inspection Eye exam: Present: normal appearance, PERRL, EOMI. Absent: scleral icterus, c onjunctival injection, periorbital swelling ENT exam: Present: normal exam, normal oropharynx, mucous membranes moist, normal external ear exam Neck exam: Present: normal inspection, full ROM. Absent: tenderness, meningismus, lymphadenopathy Respiratory exam: Present: wheezes (Significant wheezing noted in all lung babb). Absent: respiratory distress, rales, rhonchi, stridor Cardiovascular Exam: Present: regular rate, normal rhythm, normal heart sounds. Absent: systolic murmur, diastolic murmur, rubs, gallop, clicks Neurological exam: Present: alert, oriented X3, CN II-XII intact Psychiatric exam: Present: normal affect, normal mood Course Vital Signs 03/20/19 03/20/19 03/20/19 10:02 11:30 11:39 Temperature 98.6 F Pulse Rate 91 85 89 Respiratory 18 Rate Blood Pressure 130/88 O2 Sat by Pulse 95 Oximetry 03/20/19 13:12 Temperature Pulse Rate 87 Respiratory Rate Blood Pressure O2 Sat by Pulse Oximetry EKG Findings - EKG Comments: EKG Findings:: Normal sinus rhythm, ventricular rate 89, HI interval 164, QTc 433 Medical Decision Making - Medical Decision Making A 8-year-old male with a past medical history of asthma presents to the emergency department for shortness of breath. This has been ongoing for weeks. States he feels like he is wheezing denies any significant chest pain but does state he had some sharp pain intermittently which she thinks was related to muscle pain. On exam lungs are wheezy throughout all lung babb. CBC and CMP are unremarkable. Chest x-ray shows no evidence for acute pulmonary disease. Patient was given DuoNeb and IV steroids for wheezing. Likely asthma exacerbati on. Discussed inpatient versus outpatient treatment with patient. He prefers to go home. Will be given oral steroids and another DuoNeb upon discharge. Patient has an appointment on Saturday with his doctor that he will follow up with. He states he will return if he has any worsening symptoms. - Lab Data Result diagrams: 03/20/19 11:12 03/20/19 11:12 Lab Results 03/20/19 03/20/19 03/20/19 Range/Units 11:12 11:12 11:12 WBC 7.3 (3.8-10.6) k/uL RBC 4.86 (4.30-5.90) m/uL Hgb 14.8 (13.0-17.5) gm/dL Hct 45.7 (39.0-53.0) % MCV 94.1 (80.0-100.0) fL MCH 30.5 (25.0-35.0) pg MCHC 32.4 (31.0-37.0) g/dL RDW 15.2 (11.5-15.5) % Plt Count 280 (150-450) k/uL Neutrophils % 53 % Lymphocytes % 28 % Monocytes % 9 % Eosinophils % 7 % Basophils % 1 % Neutrophils # 3.9 (1.3-7.7) k/uL Lymphocytes # 2.0 (1.0-4.8) k/uL Monocytes # 0.7 (0-1.0) k/uL Eosinophils # 0.5 (0-0.7) k/uL Basophils # 0.1 (0-0.2) k/uL PT 9.5 (9.0-12.0) sec INR 0.9 (<1.2) APTT 24.6 (22.0-30.0) sec Sodium 140 (137-145) mmol/L Potassium 4.0 (3.5-5.1) mmol/L Chloride 107 (98-107) mmol/L Carbon Dioxide 25 (22-30) mmol/L Anion Gap 8 mmol/L BUN 21 H (9-20) mg/dL Creatinine 0.77 (0.66-1.25) mg/dL Est GFR (CKD-EPI)AfAm >90 (>60 ml/min/1.73 sqM) Est GFR (CKD-EPI)NonAf >90 (>60 ml/min/1.73 sqM) Glucose 119 H (74-99) mg/dL Calcium 9.1 (8.4-10.2) mg/dL Magnesium 2.0 (1.6-2.3) mg/dL Total Bilirubin 0.6 (0.2-1.3) mg/dL AST 17 (17-59) U/L ALT 17 L (21-72) U/L Alkaline Phosphatase 50 (38-126) U/L Troponin I (0.000-0.034) ng/mL Total Protein 6.2 L (6.3-8.2) g/dL Albumin 3.7 (3.5-5.0) g/dL 03/20/19 Range/Units 11:12 WBC (3.8-10.6) k/uL RBC (4.30-5.90) m/uL Hgb (13.0-17.5) gm/dL Hct (39.0-53.0) % MCV (80.0-100.0) fL MCH (25.0-35.0) pg MCHC (31.0-37.0) g/dL RDW (11.5-15.5) % Plt Count (150-450) k/uL Neutrophils % % Lymphocytes % % Monocytes % % Eosinophils % % Basophils % % Neutrophils # (1.3-7.7) k/uL Lymphocytes # (1.0-4.8) k/uL Monocytes # (0-1.0) k/uL Eosinophils # (0-0.7) k/uL Basophils # (0-0.2) k/uL PT (9.0-12.0) sec INR (<1.2) APTT (22.0-30.0) sec Sodium (137-145) mmol/L Potassium (3.5-5.1) mmol/L Chloride (98-107) mmol/L Carbon Dioxide (22-30) mmol/L Anion Gap mmol/L BUN (9-20) mg/dL Creatinine (0.66-1.25) mg/dL Est GFR (CKD-EPI)AfAm (>60 ml/min/1.73 sqM) Est GFR (CKD-EPI)NonAf (>60 ml/min/1.73 sqM) Glucose (74-99) mg/dL Calcium (8.4-10.2) mg/dL Magnesium (1.6-2.3) mg/dL Total Bilirubin (0.2-1.3) mg/dL AST (17-59) U/L ALT (21-72) U/L Alkaline Phosphatase (38-126) U/L Troponin I <0.012 (0.000-0.034) ng/mL Total Protein (6.3-8.2) g/dL Albumin (3.5-5.0) g/dL Disposition Clinical Impression: Asthma with exacerbation Disposition: HOME SELF-CARE Condition: Good Instructions (If sedation given, give patient instructions): Asthma (ED) Additional Instructions: Please take Steroids as directed. Continue breathing treatments at home and use your inhaler. Please follow up with primary care in 1-2 days. Return to the emergency department if you have any worsening symptoms. Prescriptions: predniSONE 50 mg PO DAILY #5 tablet Is patient prescribed a controlled substance at d/c from ED?: No Referrals: Marco Zamora MD [Primary Care Provider] - 1-2 days Time of Disposition: 13:16
[2019-03-20 11:41] LABS: Basophils # (A) 0.1 k/uL (0-0.2); Basophils % (A) 1 %; Eosinophils # (A) 0.5 k/uL (0-0.7); Eosinophils % (A) 7 %; HCT 45.7 % (39.0-53.0); HGB 14.8 gm/dL (13.0-17.5); Lymphocytes % (A) 28 %; MCH 30.5 pg (25.0-35.0); MCHC 32.4 g/dL (31.0-37.0); MCV 94.1 fL (80.0-100.0); Mean Platelet Volume 6.4; Monocytes # (A) 0.7 k/uL (0-1.0); Monocytes % (A) 9 %; Neutrophils # (A) 3.9 k/uL (1.3-7.7); Neutrophils % (A) 53 %; Platelet Count 280 k/uL (150-450); RBC 4.86 m/uL (4.30-5.90); RDW 15.2 % (11.5-15.5); WBC 7.3 k/uL (3.8-10.6)
[2019-03-20 11:42] LABS: ALT 17 U/L (21-72); AST 17 U/L (17-59); African American GFR (CKD) >90 (>60 ml/min/1.73 sqM); Albumin 3.7 g/dL (3.5-5.0); Alkaline Phosphatase 50 U/L (38-126); Anion Gap 8 mmol/L; Blood Urea Nitrogen 21 mg/dL (9-20); Calcium 9.1 mg/dL (8.4-10.2); Carbon Dioxide 25 mmol/L (22-30); Chloride 107 mmol/L (98-107); Glucose 119 mg/dL (74-99); Sodium 140 mmol/L (137-145); Total Bilirubin 0.6 mg/dL (0.2-1.3); Total Protein 6.2 g/dL (6.3-8.2)
[2019-03-20 11:53] LABS: INR 0.9 (<1.2); Partial Thromboplastin Time 24.6 sec (22.0-30.0); Prothrombin Time 9.5 sec (9.0-12.0)
--- NOTE | 2019-03-20 12:36 | XR ---
EXAMINATION TYPE: XR chest 2V DATE OF EXAM: 03/20/2019 COMPARISON: 01/20/2019 HISTORY: Shortness of breath TECHNIQUE: Frontal and lateral views of the chest are obtained. FINDINGS: Scattered senescent parenchymal changes noted. Hyperinflation compatible with COPD. No evidence for infiltrate. No evidence for atelectasis. Heart size is stable. Mediastinal structures are stable and grossly unremarkable. No evidence for hilar prominence. Degenerative changes dorsal spine. IMPRESSION: 1. No evidence for acute pulmonary disease.
[2019-03-20 13:20] VITALS: PULSE 86
[2019-03-20 13:30] VITALS: BP 126/84; RESP 20
[2019-03-20 13:32] VITALS: TEMP 98.1
== END 2019-03-20 13:31 | disposition home or self-care (01) ==
LOC: EC 09:54
DX: J45.901 Unspecified asthma with (acute) exacerbation (principal); E11.9 Type 2 diabetes mellitus without complications; I10 Essential (primary) hypertension; Z79.84 Long term (current) use of oral hypoglycemic drugs; Z79.899 Other long term (current) drug therapy
CPT/HCPCS: 36415; 71046; 80053; 83735; 84484; 85025; 85610; 85730; 93005; 94640; 96361; 96374; 99285

== ENCOUNTER 2019-04-10 10:42 | Emergency (ER) | payer BC ==
[2019-04-10] MEDS ORDERED: ALBUTEROL NEBULIZED 2.5 MG/3 ML INHALATION STA (11:18)
[2019-04-10] MEDS ORDERED: SODIUM CHLORIDE 0.9% 500 ML 500 ML IV STA (11:18)
[2019-04-10] MEDS ORDERED: IPRATROPIUM 0.5 MG/2.5 ML NEBU INHALATION STA (11:18)
[2019-04-10] MEDS ORDERED: AZITHROMYCIN 500 MG in SODIUM CHLORIDE 0.9% 250 ML IVPB STA (11:18)
[2019-04-10] MEDS ORDERED: methylPREDNISolone SOD SUCCI 125 MG/2 ML VIAL IV STA (11:18)
[2019-04-10] MEDS ORDERED: SODIUM CHLORIDE 0.9% 1,000 ML IV STA (11:18)
--- NOTE | 2019-04-10 11:19 | ED ---
SOB HPI - General Chief Complaint: Shortness of Breath Stated Complaint: ALEXUS Time Seen by Provider: 04/10/19 11:07 Source: patient, RN notes reviewed, old records reviewed Mode of arrival: ambulatory Limitations: no limitations - History of Present Illness Initial Comments: This is a 58-year-old male the ER for evaluation. Patient resents today for shelia luation regards to shortness breath cough or congestion. Patient has persistent shortness of breath currently. Increased wheezing increased cough. History of asthma long history of COPD although is been the prescription for quite some time. No chest pain, no fevers or travel history. MD Complaint: shortness of breath, cough -: days(s) Radiation: other (no pain) Severity: moderate Severity scale (1-10): 6 Consistency: constant Improves With: rest, bronchodilators Worsens With: exertion, movement Known History Of: COPD, asthma Context: recent URI Associated Symptoms: cough, sputum production Treatments Prior to Arrival: bronchodilator - Related Data Home Medications Medication Instructions Recorded Confirmed Albuterol Sulfate [Proair Hfa] 2 puff INHALATION RT-QID PRN 05/18/18 04/10/19 Montelukast Sodium [Singulair] 10 mg PO DAILY 05/18/18 04/10/19 Albuterol Nebulized [Ventolin 2.5 mg INHALATION RT-Q4H PRN 07/11/18 04/10/19 Nebulized] [place]-3 Fatty Acids [[place]-3] 1,000 mg PO DAILY 09/03/18 04/10/19 metFORMIN HCL [metFORMIN HCL ER] 750 mg PO AC-SUPPER 09/03/18 04/10/19 Lisinopril 20 mg PO DAILY@1700 10/30/18 04/10/19 Multivitamins, Thera [Multivitamin 1 tab PO DAILY 12/28/18 04/10/19 (formulary)] Previous Rx's Medication Instructions Recorded Albuterol Nebulized [Ventolin 2.5 mg INHALATION Q4H PRN #25 nebu 04/10/19 Nebulized] Albuterol Sulfate [Proair Hfa] 1 - 2 puff INHALATION Q4H PRN #1 04/10/19 inhaler Azithromycin [Zithromax Z-pack] 0 mg PO DIRECTED #1 pack 04/10/19 predniSONE 50 mg PO DAILY #5 tab 04/10/19 Allergies Allergy/AdvReac Type Severity Reaction Status Date / Time No Known Allergies Allergy Verified 04/10/19 10:57 Review of Systems ROS Statement: Those systems with pertinent positive or pertinent negative responses have been documented in the HPI. ROS Other: All systems not noted in ROS Statement are negative. Past Medical History Past Medical History: Asthma, Diabetes Mellitus, Hyperlipidemia, Hypertension, Osteoarthritis (OA) Additional Past Medical History / Comment(s): Persistent asthma, NIDDM II- arthritis R knee, current L ankle sprain History of Any Multi-Drug Resistant Organisms: None Reported Past Surgical History: Hernia Repair Additional Past Surgical History / Comment(s): Umbilical hernia repair Past Anesthesia/Blood Transfusion Reactions: No Reported Reaction, Motion Sickness Past Psychological History: No Psychological Hx Reported Smoking Status: Former smoker Past Alcohol Use History: None Reported Past Drug Use History: None Reported - Past Family History Mother History Unknown: Yes Family Medical History: Cancer Additional Family Medical History / Comment(s): Mother of ovarian cancer at the age of 78yrs. Father History Unknown: Yes Family Medical History: GI Bleed Additional Family Medical History / Comment(s): Father in his 30s of a internal bleed. Brother(s) Family Medical History: No Reported History Sister(s) Family Medical History: No Reported History Daughter(s) Family Medical History: Unable to Obtain General Exam Limitations: no limitations General appearance: alert, in no apparent distress Head exam: Present: atraumatic, normocephalic, normal inspection Eye exam: Present: normal appearance, PERRL, EOMI. Absent: scleral icterus, conjunctival injection, periorbital swelling ENT exam: Present: normal exam, mucous membranes moist Neck exam: Present: normal inspection. Absent: tenderness, meningismus, lymphadenopathy Respiratory exam: Present: wheezes. Absent: normal lung sounds bilaterally, respiratory distress, rales, rhonchi, stridor Cardiovascular Exam: Present: regular rate, normal rhythm, normal heart sounds. Absent: systolic murmur, diastolic murmur, rubs, gallop, clicks GI/Abdominal exam: Present: soft, normal bowel sounds. Absent: distended, tenderness, guarding, rebound, rigid Extremities exam: Present: normal inspection, full ROM, normal capillary refill. Absent: tenderness, pedal edema, joint swelling, calf tenderness Back exam: Present: normal inspection Neurological exam: Present: alert, oriented X3, CN II-XII intact Psychiatric exam: Present: normal affect, normal mood Skin exam: Present: warm, dry, intact, normal color. Absent: rash Course Vital Signs 04/10/19 04/10/19 04/10/19 10:47 11:43 11:58 Temperature 97.9 F Pulse Rate 94 84 84 Respiratory 22 Rate Blood Pressure 133/87 O2 Sat by Pulse 97 Oximetry 04/10/19 04/10/19 04/10/19 12:13 12:31 13:43 Temperature 98.3 F Pulse Rate 90 90 89 Respiratory 20 Rate Blood Pressure 129/84 O2 Sat by Pulse 99 Oximetry Medical Decision Making - Medical Decision Making 58 male the ER for evaluation shortness of breath persistent shortness of breath, symptoms markedly improved here in the ER, patient like to try outpatient therapy as opposed observation. Patient has no acute chest pain currently. - Lab Data Result diagrams: 04/10/19 11:15 04/10/19 11:15 Lab Results 04/10/19 04/10/19 04/10/19 Range/Units 11:15 11:15 11:15 WBC 7.2 (3.8-10.6) k/uL RBC 4.76 (4.30-5.90) m/uL Hgb 14.8 (13.0-17.5) gm/dL Hct 45.1 (39.0-53.0) % MCV 94.7 (80.0-100.0) fL MCH 31.0 (25.0-35.0) pg MCHC 32.7 (31.0-37.0) g/dL RDW 13.6 (11.5-15.5) % Plt Count 300 (150-450) k/uL Neutrophils % 55 % Lymphocytes % 27 % Monocytes % 8 % Eosinophils % 7 % Basophils % 1 % Neutrophils # 4.0 (1.3-7.7) k/uL Lymphocytes # 2.0 (1.0-4.8) k/uL Monocytes # 0.6 (0-1.0) k/uL Eosinophils # 0.5 (0-0.7) k/uL Basophils # 0.1 (0-0.2) k/uL PT (9.0-12.0) sec INR (<1.2) APTT (22.0-30.0) sec Sodium 140 (137-145) mmol/L Potassium 4.3 (3.5-5.1) mmol/L Chloride 108 H (98-107) mmol/L Carbon Dioxide 24 (22-30) mmol/L Anion Gap 8 mmol/L BUN 17 (9-20) mg/dL Creatinine 0.74 (0.66-1.25) mg/dL Est GFR (CKD-EPI)AfAm >90 (>60 ml/min/1.73 sqM) Est GFR (CKD-EPI)NonAf >90 (>60 ml/min/1.73 sqM) Glucose 110 H (74-99) mg/dL Calcium 8.8 (8.4-10.2) mg/dL Magnesium 2.0 (1.6-2.3) mg/dL Total Bilirubin 0.8 (0.2-1.3) mg/dL AST 21 (17-59) U/L ALT 19 L (21-72) U/L Alkaline Phosphatase 43 (38-126) U/L Troponin I (0.000-0.034) ng/mL NT-Pro-B Natriuret Pep 35 pg/mL Total Protein 6.4 (6.3-8.2) g/dL Albumin 3.8 (3.5-5.0) g/dL 04/10/19 04/10/19 Range/Units 11:15 11:15 WBC (3.8-10.6) k/uL RBC (4.30-5.90) m/uL Hgb (13.0-17.5) gm/dL Hct (39.0-53.0) % MCV (80.0-100.0) fL MCH (25.0-35.0) pg MCHC (31.0-37.0) g/dL RDW (11.5-15.5) % Plt Count (150-450) k/uL Neutrophils % % Lymphocytes % % Monocytes % % Eosinophils % % Basophils % % Neutrophils # (1.3-7.7) k/uL Lymphocytes # (1.0-4.8) k/uL Monocytes # (0-1.0) k/uL Eosinophils # (0-0.7) k/uL Basophils # (0-0.2) k/uL PT 9.5 (9.0-12.0) sec INR 0.9 (<1.2) APTT 25.1 (22.0-30.0) sec Sodium (137-145) mmol/L Potassium (3.5-5.1) mmol/L Chloride (98-107) mmol/L Carbon Dioxide (22-30) mmol/L Anion Gap mmol/L BUN (9-20) mg/dL Creatinine (0.66-1.25) mg/dL Est GFR (CKD-EPI)AfAm (>60 ml/min/1.73 sqM) Est GFR (CKD-EPI)NonAf (>60 ml/min/1.73 sqM) Glucose (74-99) mg/dL Calcium (8.4-10.2) mg/dL Magnesium (1.6-2.3) mg/dL Total Bilirubin (0.2-1.3) mg/dL AST (17-59) U/L ALT (21-72) U/L Alkaline Phosphatase (38-126) U/L Troponin I <0.012 (0.000-0.034) ng/mL NT-Pro-B Natriuret Pep pg/mL Total Protein (6.3-8.2) g/dL Albumin (3.5-5.0) g/dL - EKG Data -: EKG Interpreted by Me (EKG shows sinus rhythm rate of 84, MO 160, QRS 06, QTc 434) - Radiology Data Radiology results: report reviewed (Chest x-rays negative for acute disease), image reviewed Disposition Clinical Impression: Asthma, Asthma with exacerbation, Acute exacerbation of chronic obstructive airways disease Disposition: HOME SELF-CARE Condition: Fair Instructions (If sedation given, give patient instructions): Asthma (ED), Acute Bronchitis (ED) Prescriptions: predniSONE 50 mg PO DAILY #5 tab Albuterol Sulfate [Proair Hfa] 1 - 2 puff INHALATION Q4H PRN #1 inhaler PRN Reason: Shortness Of Breath Albuterol Nebulized [Ventolin Nebulized] 2.5 mg INHALATION Q4H PRN #25 nebu PRN Reason: Shortness Of Breath Azithromycin [Zithromax Z-pack] 0 mg PO DIRECTED #1 pack Is patient prescribed a controlled substance at d/c from ED?: No Referrals: Marco Zamora MD [Primary Care Provider] - 1-2 days
[2019-04-10 11:38] LABS: Basophils # (A) 0.1 k/uL (0-0.2); Basophils % (A) 1 %; Eosinophils # (A) 0.5 k/uL (0-0.7); Eosinophils % (A) 7 %; HCT 45.1 % (39.0-53.0); HGB 14.8 gm/dL (13.0-17.5); Lymphocytes % (A) 27 %; MCHC 32.7 g/dL (31.0-37.0); MCV 94.7 fL (80.0-100.0); Mean Platelet Volume 6.1; Monocytes # (A) 0.6 k/uL (0-1.0); Monocytes % (A) 8 %; Neutrophils % (A) 55 %; Platelet Count 300 k/uL (150-450); RBC 4.76 m/uL (4.30-5.90); RDW 13.6 % (11.5-15.5); WBC 7.2 k/uL (3.8-10.6)
[2019-04-10 11:47] LABS: African American GFR (CKD) >90 (>60 ml/min/1.73 sqM); Albumin 3.8 g/dL (3.5-5.0); Anion Gap 8 mmol/L; Blood Urea Nitrogen 17 mg/dL (9-20); Calcium 8.8 mg/dL (8.4-10.2); Carbon Dioxide 24 mmol/L (22-30); Chloride 108 mmol/L (98-107); Glucose 110 mg/dL (74-99); INR 0.9 (<1.2); Non-African American GFR(CKD) >90 (>60 ml/min/1.73 sqM); Partial Thromboplastin Time 25.1 sec (22.0-30.0); Prothrombin Time 9.5 sec (9.0-12.0); Sodium 140 mmol/L (137-145); Total Bilirubin 0.8 mg/dL (0.2-1.3); Total Protein 6.4 g/dL (6.3-8.2)
[2019-04-10 11:48] LABS: ALT 19 U/L (21-72); AST 21 U/L (17-59); Alkaline Phosphatase 43 U/L (38-126); Potassium 4.3 mmol/L (3.5-5.1)
--- NOTE | 2019-04-10 12:47 | XR ---
EXAMINATION TYPE: XR chest 2V DATE OF EXAM: 04/10/2019 COMPARISON: Prior chest x-ray 03/20/2019 HISTORY: Difficulty breathing TECHNIQUE: Frontal and lateral views of the chest are obtained. FINDINGS: There is no focal air space opacity, pleural effusion, or pneumothorax seen. The cardiac silhouette size is within normal limits. The osseous structures are intact. Prominent lung volumes with flattening the hemidiaphragms compatible with underlying COPD. Bronchial wall thickening is note d. IMPRESSION: Correlate for orchitis, reactive airways disease.
[2019-04-10 13:52] VITALS: BP 129/84; PULSE 89; RESP 20; TEMP 98.3
== END 2019-04-10 13:43 | disposition home or self-care (01) ==
LOC: EC 10:42
DX: J44.1 Chronic obstructive pulmonary disease with (acute) exacerbation (principal); E11.9 Type 2 diabetes mellitus without complications; I10 Essential (primary) hypertension; Z87.891 Personal history of nicotine dependence; Z79.84 Long term (current) use of oral hypoglycemic drugs; Z79.899 Other long term (current) drug therapy
CPT/HCPCS: 99285 ×2; 96365 ×2; 96375 ×2; 36415; 94644; 93005; 83880; 80053; 83735; 84484; 85025; 85610; 85730; 87040; 71046; J2930; J0456

== ENCOUNTER 2019-05-13 07:45 | Emergency (ER) | payer BC ==
[2019-05-13 07:50] VITALS: TEMP 98.2
[2019-05-13] MEDS ORDERED: ALBUTEROL NEBULIZED 2.5 MG/3 ML INHALATION STA (08:08)
[2019-05-13] MEDS ORDERED: IPRATROPIUM-ALBUTEROL 3 ML NEB INHALATION STA (08:08)
[2019-05-13] MEDS ORDERED: SODIUM CHLORIDE 0.9% 1,000 ML IV STA ×2 (08:08)
[2019-05-13] MEDS ORDERED: methylPREDNISolone SOD SUCCI 125 MG/2 ML VIAL IV STA (08:08)
--- NOTE | 2019-05-13 08:10 | ED ---
SOB HPI - General Chief Complaint: Shortness of Breath Stated Complaint: SOB Time Seen by Provider: 05/13/19 07:56 Source: patient, RN notes reviewed, old records reviewed Mode of arrival: ambulatory Limitations: no limitations - History of Present Illness Initial Comments: Patient is a 58-year-old male with a history of asthma, presents emergency depar tment today with increased shortness of breath and dry cough for the past 2 weeks. He isn't using his nebulizer albuterol recently. Patient has had a nonproductive cough. Been admitted in the past before for asthma exacerbations.Patient denies any recent fever, chills, chest pain, back pain, abdominal pain, nausea vomiting, numbness or tingling, dysuria or hematuria, constipation or diarrhea, headaches or visual changes, or any other current symptoms - Related Data Home Medications Medication Instructions Recorded Confirmed Albuterol Sulfate [Proair Hfa] 2 puff INHALATION RT-QID PRN 05/18/18 05/13/19 Montelukast Sodium [Singulair] 10 mg PO DAILY@1700 05/18/18 05/13/19 Albuterol Nebulized [Ventolin 2.5 mg INHALATION RT-Q4H PRN 07/11/18 05/13/19 Nebulized] Fithian-3 Fatty Acids [Fithian-3] 1,000 mg PO DAILY@1700 09/03/18 05/13/19 metFORMIN HCL [metFORMIN HCL ER] 750 mg PO DAILY@1700 09/03/18 05/13/19 Lisinopril 20 mg PO DAILY@1700 10/30/18 05/13/19 Multivitamins, Thera [Multivitamin 1 tab PO DAILY@1700 12/28/18 05/13/19 (formulary)] Previous Rx's Medication Instructions Recorded Ipratropium-Albuterol Nebulize 3 ml INHALATION TID #30 neb 05/13/19 [Duoneb 0.5 mg-3 mg/3 ml Soln] predniSONE 50 mg PO DAILY #5 tablet 05/13/19 Allergies Allergy/AdvReac Type Severity Reaction Status Date / Time No Known Allergies Allergy Verified 05/13/19 08:16 Review of Systems ROS Statement: Those systems with pertinent positive or pertinent negative responses have been documented in the HPI. ROS Other: All systems not noted in ROS Statement are negative. Past Medical History Past Medical History: Asthma, Diabetes Mellitus, Hyperlipidemia, Hypertension, O steoarthritis (OA) Additional Past Medical History / Comment(s): Persistent asthma, NIDDM II- arthritis R knee, current L ankle sprain History of Any Multi-Drug Resistant Organisms: None Reported Past Surgical History: Hernia Repair Additional Past Surgical History / Comment(s): Umbilical hernia repair Past Anesthesia/Blood Transfusion Reactions: No Reported Reaction, Motion Sickness Past Psychological History: No Psychological Hx Reported Smoking Status: Former smoker Past Alcohol Use History: None Reported Past Drug Use History: None Reported - Past Family History Mother History Unknown: Yes Family Medical History: Cancer Additional Family Medical History / Comment(s): Mother of ovarian cancer at the age of 78yrs. Father History Unknown: Yes Family Medical History: GI Bleed Additional Family Medical History / Comment(s): Father in his 30s of a internal bleed. Brother(s) Family Medical History: No Reported History Sister(s) Family Medical History: No Reported History Daughter(s) Family Medical History: Unable to Obtain General Exam - General Exam Comments Initial Comments: 58-year-old male. Alert and oriented 3. No significant distress. Limitations: no limitations General appearance: alert, in no apparent distress Head exam: Present: atraumatic, normocephalic, normal inspection Eye exam: Present: normal appearance, PERRL, EOMI. Absent: scleral icterus, conjunctival injection, periorbital swelling ENT exam: Present: normal exam, mucous membranes moist Neck exam: Present: normal inspection. Absent: tenderness, meningismus, lymphadenopathy Respiratory exam: Present: wheezes. Absent: normal lung sounds bilaterally, respiratory distress, rales, rhonchi, stridor Cardiovascular Exam: Present: regular rate, normal rhythm, normal heart sounds. Absent: systolic murmur, diastolic murmur, rubs, gallop, clicks GI/Abdominal exam: Present: soft, normal bowel sounds. Absent: distended, tenderness, guarding, rebound, rigid Extremities exam: Present: normal inspection, full ROM, normal capillary refill. Absent: tenderness, pedal edema, joint swelling, calf tenderness Back exam: Present: normal inspection Neurological exam: Present: alert, oriented X3, CN II-XII intact Psychiatric exam: Present: normal affect, normal mood Course Vital Signs 05/13/19 05/13/1905/13/19 07:47 08:01 08:47 Temperature 98.2 F Pulse Rate 97 93 Respiratory 18 18 Rate Blood Pressure 136/87 O2 Sat by Pulse 97 Oximetry 05/13/19 09:07 Temperature Pulse Rate 97 Respiratory Rate Blood Pressure O2 Sat by Pulse Oximetry - Reevaluation(s) Reevaluation #1: 05/13/19 10:27 On reevaluation he has improvement of wheezing. Offered Patient admission for observation for wheezing symptoms. We'll discharge the Patient this time cc for her to try outpatient therapy. Medical Decision Making - Medical Decision Making 38-year-old male presents emergency room today with 2 weeks of cough, wheezing. History of asthma. Patient this time was given multiple breathing treatments, his oxygen saturation was 84 and 95% on room air. On lab evaluation there is no acute changes. Is given IV site [place]. Chest x-ray shows evidence of reactive airway disease or bronchiolitis. Patient was offered admission for observation for this and wheezing. He states referred to try outpatient therapy at this time. Discussed proper follow-up with primary care doctor. SINCE RETURN PARAMETERS WERE DISCUSSED. - Lab Data Result diagrams: 05/13/19 08:22 05/13/19 08:22 Lab Results 05/13/19 05/13/19 05/13/19 Range/Units 08:22 08:22 08:22 WBC 7.3 (3.8-10.6) k/uL RBC 4.84 (4.30-5.90) m/uL Hgb 14.9 (13.0-17.5) gm/dL Hct 45.0 (39.0-53.0) % MCV 92.9 (80.0-100.0) fL MCH 30.8 (25.0-35.0) pg MCHC 33.1 (31.0-37.0) g/dL RDW 15.1 (11.5-15.5) % Plt Count 316 (150-450) k/uL Neutrophils % 52 % Lymphocytes % 30 % Monocytes % 8 % Eosinophils % 7 % Basophils % 2 % Neutrophils # 3.8 (1.3-7.7) k/uL Lymphocytes # 2.1 (1.0-4.8) k/uL Monocytes # 0.6 (0-1.0) k/uL Eosinophils # 0.5 (0-0.7) k/uL Basophils # 0.1 (0-0.2) k/uL PT 9.6 (9.0-12.0) sec INR 0.9 (<1.2) APTT 25.0 (22.0-30.0) sec Sodium 142 (137-145) mmol/L Potassium 4.2 (3.5-5.1) mmol/L Chloride 107 (98-107) mmol/L Carbon Dioxide 26 (22-30) mmol/L Anion Gap 9 mmol/L BUN 21 H (9-20) mg/dL Creatinine 0.84 (0.66-1.25) mg/dL Est GFR (CKD-EPI)AfAm >90 (>60 ml/min/1.73 sqM) Est GFR (CKD-EPI)NonAf >90 (>60 ml/min/1.73 sqM) Glucose 129 H (74-99) mg/dL Calcium 8.9 (8.4-10.2) mg/dL Total Bilirubin 0.7 (0.2-1.3) mg/dL AST 23 (17-59) U/L ALT 17 L (21-72) U/L Alkaline Phosphatase 42 (38-126) U/L Troponin I (0.000-0.034) ng/mL Total Protein 6.6 (6.3-8.2) g/dL Albumin 3.9 (3.5-5.0) g/dL 05/13/19 Range/Units 08:22 WBC (3.8-10.6) k/uL RBC (4.30-5.90) m/uL Hgb (13.0-17.5) gm/dL Hct (39.0-53.0) % MCV (80.0-100.0) fL MCH (25.0-35.0) pg MCHC (31.0-37.0) g/dL RDW (11.5-15.5) % Plt Count (150-450) k/uL Neutrophils % % Lymphocytes % % Monocytes % % Eosinophils % % Basophils % % Neutrophils # (1.3-7.7) k/uL Lymphocytes # (1.0-4.8) k/uL Monocytes # (0-1.0) k/uL Eosinophils # (0-0.7) k/uL Basophils # (0-0.2) k/uL PT (9.0-12.0) sec INR (<1.2) APTT (22.0-30.0) sec Sodium (137-145) mmol/L Potassium (3.5-5.1) mmol/L Chloride (98-107) mmol/L Carbon Dioxide (22-30) mmol/L Anion Gap mmol/L BUN (9-20) mg/dL Creatinine (0.66-1.25) mg/dL Est GFR (CKD-EPI)AfAm (>60 ml/min/1.73 sqM) Est GFR (CKD-EPI)NonAf (>60 ml/min/1.73 sqM) Glucose (74-99) mg/dL Calcium (8.4-10.2) mg/dL Total Bilirubin (0.2-1.3) mg/dL AST (17-59) U/L ALT (21-72) U/L Alkaline Phosphatase (38-126) U/L Troponin I <0.012 (0.000-0.034) ng/mL Total Protein (6.3-8.2) g/dL Albumin (3.5-5.0) g/dL 05/13/19 08:46 EKG performed at 8:30 AM shows normal sinus rhythm, normal EKG. Ventricular rate 97 bpm. Verbal is 160 ms. QRS duration is 90 ms. QT QTc is 344/436 most seconds. - Radiology Data Radiology results: report reviewed Chest x-ray shows no suspicious acute infiltrate. Bilateral central peripheral peribronchial cuffing results concern for reactive airway disease possibly from acute viral bronchiolitis. Disposition Clinical Impression: Asthma Disposition: HOME SELF-CARE Condition: Good Instructions (If sedation given, give patient instructions): Asthma (ED) Additional Instructions: Please use medication as discussed. Please follow up with family doctor if symptoms have not improved over the next two days. Please return to the emergency room if your symptoms increase or worsen or for any other concerns. Prescriptions: Ipratropium-Albuterol Nebulize [Duoneb 0.5 mg-3 mg/3 ml Soln] 3 ml INHALATION TID #30 neb predniSONE 50 mg PO DAILY #5 tablet Is patient prescribed a controlled substance at d/c from ED?: No Referrals: Marco Zamora MD [Primary Care Provider] - 1-2 days Time of Disposition: 10:29
[2019-05-13 08:58] LABS: INR 0.9 (<1.2); Prothrombin Time 9.6 sec (9.0-12.0)
[2019-05-13 09:02] LABS: ALT 17 U/L (21-72); AST 23 U/L (17-59); African American GFR (CKD) >90 (>60 ml/min/1.73 sqM); Albumin 3.9 g/dL (3.5-5.0); Alkaline Phosphatase 42 U/L (38-126); Anion Gap 9 mmol/L; Blood Urea Nitrogen 21 mg/dL (9-20); Calcium 8.9 mg/dL (8.4-10.2); Carbon Dioxide 26 mmol/L (22-30); Chloride 107 mmol/L (98-107); Glucose 129 mg/dL (74-99); Potassium 4.2 mmol/L (3.5-5.1); Sodium 142 mmol/L (137-145); Total Bilirubin 0.7 mg/dL (0.2-1.3); Total Protein 6.6 g/dL (6.3-8.2)
[2019-05-13 09:09] VITALS: PULSE 97
[2019-05-13 09:21] LABS: Basophils # (A) 0.1 k/uL (0-0.2); Basophils % (A) 2 %; Eosinophils # (A) 0.5 k/uL (0-0.7); Eosinophils % (A) 7 %; HGB 14.9 gm/dL (13.0-17.5); Lymphocytes # (A) 2.1 k/uL (1.0-4.8); Lymphocytes % (A) 30 %; MCH 30.8 pg (25.0-35.0); MCHC 33.1 g/dL (31.0-37.0); MCV 92.9 fL (80.0-100.0); Mean Platelet Volume 6.5; Monocytes # (A) 0.6 k/uL (0-1.0); Monocytes % (A) 8 %; Neutrophils # (A) 3.8 k/uL (1.3-7.7); Neutrophils % (A) 52 %; Platelet Count 316 k/uL (150-450); RBC 4.84 m/uL (4.30-5.90); RDW 15.1 % (11.5-15.5); WBC 7.3 k/uL (3.8-10.6)
--- NOTE | 2019-05-13 09:53 | XR ---
EXAMINATION TYPE: XR chest 2V DATE OF EXAM: 05/13/2019 COMPARISON: Chest x-ray April 10, 2019 HISTORY: Right-sided chest pain and increasing shortness of breath. TECHNIQUE: Frontal and lateral views of the chest are obtained. FINDINGS: Overlying EKG leads are seen. There is no suspicious new peripheral focal air space opacit y, pleural effusion, or pneumothorax seen. Persistent increased central peribronchial cuffing The car diac silhouette size is within normal limits. The osseous structures are intact. IMPRESSION: No new suspicious acute infiltrate. Bilateral central perihilar peribronchial cuffing ra ises concern for reactive airway disease possibly from acute viral bronchiolitis.
[2019-05-13 10:33] VITALS: BP 157/92; RESP 20
== END 2019-05-13 10:31 | disposition home or self-care (01) ==
LOC: EC 07:45
DX: J45.909 Unspecified asthma, uncomplicated (principal); E11.9 Type 2 diabetes mellitus without complications; E78.5 Hyperlipidemia, unspecified; I10 Essential (primary) hypertension; M19.90 Unspecified osteoarthritis, unspecified site; Z79.51 Long term (current) use of inhaled steroids; Z79.84 Long term (current) use of oral hypoglycemic drugs; Z79.899 Other long term (current) drug therapy; Z87.891 Personal history of nicotine dependence
CPT/HCPCS: 99285; 96374; 96361 ×2; 36415; 94640; 93005; 80053; 84484; 85025; 85610; 85730; 87040; 71046; J2930

== ENCOUNTER 2019-07-16 06:37 | Emergency (ER) | payer BC ==
[2019-07-16 06:52] VITALS: RESP 18; TEMP 97.8
[2019-07-16] MEDS ORDERED: MORPHINE SULFATE 4 MG/ML SYRINGE IV STA (07:00)
[2019-07-16] MEDS ORDERED: PANTOPRAZOLE 40 MG/10 ML VIAL IVP STA (07:00)
[2019-07-16] MEDS ORDERED: ONDANSETRON 4 MG/2 ML VIAL IVP STA (07:00)
[2019-07-16] MEDS ORDERED: SODIUM CHLORIDE 0.9% 1,000 ML IV STA ×2 (07:00)
--- NOTE | 2019-07-16 07:04 | ED ---
Abdominal Pain HPI - General Chief Complaint: Abdominal Pain Stated Complaint: epigastric pain Time Seen by Provider: 07/16/19 06:46 Source: patient, RN notes reviewed, old records reviewed Mode of arrival: ambulatory Limitations: no limitations - History of Present Illness Initial Comments: Patient is a 5-year-old male, he presents today for evaluation for 3 days of right upper quadrant epigastric pain and some chest pain. Patient reports that he has had some nausea intermittently as well. He reports the pain seems to wax and wane. Patient states he's been complaining of nausea and not eating much. Patient states that he has had no fevers or chills. Patient has a long-standing history of asthma. No recent treatment with steroids but did take a breathing treatment prior to arrival. He denies any significant coughing or shortness of breath at this time. - Related Data Home Medications Medication Instructions Recorded Confirmed Albuterol Sulfate [Proair Hfa] 2 puff INHALATION RT-QID PRN 05/18/18 07/16/19 Montelukast Sodium [Singulair] 10 mg PO DAILY@1000 05/18/18 07/16/19 Albuterol Nebulized [Ventolin 2.5 mg INHALATION RT-Q4H PRN 07/11/18 07/16/19 Nebulized] metFORMIN HCL [metFORMIN HCL ER] 750 mg PO DAILY@1500 09/03/18 07/16/19 Lisinopril 20 mg PO DAILY@1800 10/30/18 07/16/19 Previous Rx's Medication Instructions Recorded Famotidine [Pepcid] 20 mg PO BID #20 tablet 07/16/19 Sucralfate [Carafate] 1 gm PO ACHS #30 tablet 07/16/19 Allergies Allergy/AdvReac Type Severity Reaction Status Date / Time No Known Allergies Allergy Verified 07/16/19 09:44 Review of Systems ROS Statement: Those systems with pertinent positive or pertinent negative responses have been documented in the HPI. ROS Other: All systems not noted in ROS Statement are negative. Past Medical History Past Medical History: Asthma, Diabetes Mellitus, Hyperlipidemia, Hypertension, Osteoarthritis (OA) Additional Past Medical History / Comment(s): Persistent asthma, NIDDM II- arthritis R knee, current L ankle sprain History of Any Multi-Drug Resistant Organisms: None Reported Past Surgical History: Hernia Repair Additional Past Surgical History / Comment(s): Umbilical hernia repair Past Anesthesia/Blood Transfusion Reactions: No Reported Reaction, Motion Sickness Past Psychological History: No Psychological Hx Reported Smoking Status: Former smoker Past Alcohol Use History: None Reported Past Drug Use History: None Reported - Past Family History Mother History Unknown: Yes Family Medical History: Cancer Additional Family Medical History / Comment(s): Mother of ovarian cancer at the age of 78yrs. Father History Unknown: Yes Family Medical History: GI Bleed Additional Family Medical History / Comment(s): Father in his 30s of a internal bleed. Brother(s) Family Medical History: No Reported History Sister(s) Family Medical History: No Reported History Daughter(s) Family Medical History: Unable to Obtain General Exam - General Exam Comments Initial Comments: 59-year-old male. Alert and oriented. No distress.a Limitations: no limitations Head exam: Present: atraumatic, normocephalic, normal inspection Eye exam: Present: normal appearance, PERRL, EOMI. Absent: scleral icterus, conjunctival injection, periorbital swelling ENT exam: Present: normal exam, mucous membranes moist Neck exam: Present: normal inspection. Absent: tenderness, meningismus, lymphadenopathy Respiratory exam: Present: normal lung sounds bilaterally. Absent: respiratory distress, wheezes, rales, rhonchi, stridor Cardiovascular Exam: Present: regular rate, normal rhythm, normal heart sounds. Absent: systolic murmur, diastolic murmur, rubs, gallop, clicks GI/Abdominal exam: Present: soft, normal bowel sounds. Absent: distended, tenderness, guarding, rebound, rigid Extremities exam: Present: normal inspection, full ROM, normal capillary refill. Absent: tenderness, pedal edema, joint swelling, calf tenderness Back exam: Present: normal inspection Neurological exam: Present: alert, oriented X3, CN II-XII intact Psychiatric exam: Present: normal affect, normal mood Skin exam: Present: warm, dry, intact, normal color. Absent: rash Course Vital Signs 07/16/19 07/16/19 07/16/19 06:44 06:55 07:31 Temperature 97.8 F Pulse Rate 93 90 Respiratory 18 18 18 Rate Blood Pressure 128/84 114/65 O2 Sat by Pulse 97 94 L Oximetry Medical Decision Making - Medical Decision Making Patient 5-year-old male presents today for 3 days of epigastric and right-sided upper quadrant pain. The long-standing history of asthma, no recent treatment of steroids and denies any shortness of breath or cough at this time. Patient at this time has no other fever chills or other significant complaints. Patient EKG was reviewed and negative for any acute process. Troponin and blood work was normal. Due to right upper quadrant pain ultrasound was completed this is shows no acute changes. No signs of retained stones. Patient is advised patient's symptoms are related to gastritis. He reports he was supposed to have a upper GI scope but never did. I discussed the Patient follow-up with primary care doctor. All questions are answered. - Lab Data Result diagrams: 07/16/19 07:15 07/16/19 07:15 Lab Results 07/16/19 07/16/19 07/16/19 Range/Units 07:15 07:15 07:15 WBC 7.8 (3.8-10.6) k/uL RBC 5.16 (4.30-5.90) m/uL Hgb 16.5 (13.0-17.5) gm/dL Hct 48.1 (39.0-53.0) % MCV 93.2 (80.0-100.0) fL MCH 32.0 (25.0-35.0) pg MCHC 34.3 (31.0-37.0) g/dL RDW 12.8 (11.5-15.5) % Plt Count 298 (150-450) k/uL Neutrophils % 57 % Lymphocytes % 29 % Monocytes % 7 % Eosinophils % 5 % Basophils % 1 % Neutrophils # 4.4 (1.3-7.7) k/uL Lymphocytes # 2.2 (1.0-4.8) k/uL Monocytes # 0.6 (0-1.0) k/uL Eosinophils # 0.4 (0-0.7) k/uL Basophils # 0.1 (0-0.2) k/uL PT 9.6 (9.0-12.0) sec INR 0.9 (<1.2) APTT 25.0 (22.0-30.0) sec Sodium 140 (137-145) mmol/L Potassium 4.2 (3.5-5.1) mmol/L Chloride 108 H (98-107) mmol/L Carbon Dioxide 22 (22-30) mmol/L Anion Gap 10 mmol/L BUN 21 H (9-20) mg/dL Creatinine 0.86 (0.66-1.25) mg/dL Est GFR (CKD-EPI)AfAm >90 (>60 ml/min/1.73 sqM) Est GFR (CKD-EPI)NonAf >90 (>60 ml/min/1.73 sqM) Glucose 122 H (74-99) mg/dL Calcium 9.2 (8.4-10.2) mg/dL Total Bilirubin 0.9 (0.2-1.3) mg/dL AST 22 (17-59) U/L ALT 24 (21-72) U/L Alkaline Phosphatase 59 (38-126) U/L Troponin I (0.000-0.034) ng/mL Total Protein 6.8 (6.3-8.2) g/dL Albumin 4.0 (3.5-5.0) g/dL Amylase <30 L (30-110) U/L Lipase 99 (23-300) U/L Urine Color Urine Appearance (Clear) Urine pH (5.0-8.0) Ur Specific [place] (1.001-1.035) Urine Protein (Negative) Urine Glucose (UA) (Negative) Urine Ketones (Negative) Urine Blood (Negative) Urine Nitrite (Negative) Urine Bilirubin (Negative) Urine Urobilinogen (<2.0) mg/dL Ur Leukocyte Esterase (Negative) 07/16/19 07/16/19 Range/Units 07:15 08:04 WBC (3.8-10.6) k/uL RBC (4.30-5.90) m/uL Hgb (13.0-17.5) gm/dL Hct (39.0-53.0) % MCV (80.0-100.0) fL MCH (25.0-35.0) pg MCHC (31.0-37.0) g/dL RDW (11.5-15.5) % Plt Count (150-450) k/uL Neutrophils % % Lymphocytes % % Monocytes % % Eosinophils % % Basophils % % Neutrophils # (1.3-7.7) k/uL Lymphocytes # (1.0-4.8) k/uL Monocytes # (0-1.0) k/uL Eosinophils # (0-0.7) k/uL Basophils # (0-0.2) k/uL PT (9.0-12.0) sec INR (<1.2) APTT (22.0-30.0) sec Sodium (137-145) mmol/L Potassium (3.5-5.1) mmol/L Chloride (98-107) mmol/L Carbon Dioxide (22-30) mmol/L Anion Gap mmol/L BUN (9-20) mg/dL Creatinine (0.66-1.25) mg/dL Est GFR (CKD-EPI)AfAm (>60 ml/min/1.73 sqM) Est GFR (CKD-EPI)NonAf (>60 ml/min/1.73 sqM) Glucose (74-99) mg/dL Calcium (8.4-10.2) mg/dL Total Bilirubin (0.2-1.3) mg/dL AST (17-59) U/L ALT (21-72) U/L Alkaline Phosphatase (38-126) U/L Troponin I <0.012 (0.000-0.034) ng/mL Total Protein (6.3-8.2) g/dL Albumin (3.5-5.0) g/dL Amylase (30-110) U/L Lipase (23-300) U/L Urine Color Yellow Urine Appearance Clear (Clear) Urine pH 5.5 (5.0-8.0) Ur Specific [place] 1.033 (1.001-1.035) Urine Protein Trace H (Negative) Urine Glucose (UA) Negative (Negative) Urine Ketones Trace H (Negative) Urine Blood Negative (Negative) Urine Nitrite Negative (Negative) Urine Bilirubin Negative (Negative) Urine Urobilinogen <2.0 (<2.0) mg/dL Ur Leukocyte Esterase Negative (Negative) 07/16/19 07:20 EKG performed at 716 and shows normal sinus rhythm cannot rule out inferior infarct. Abnormal EKG. Ventricular rate of 93 bpm. Pulse 160 ms. QS duration is 106 ms. QT QTC 362/[address] elevation. - Radiology Data Radiology results: report reviewed Disposition Clinical Impression: Epigastric pain Disposition: HOME SELF-CARE Condition: Good Instructions (If sedation given, give patient instructions): Abdominal Pain (ED) Additional Instructions: Please use medication as discussed. Please follow up with family doctor if symptoms have not improved over the next two days. Please return to the emergency room if your symptoms increase or worsen or for any other concerns. Prescriptions: Sucralfate [Carafate] 1 gm PO ACHS #30 tablet Famotidine [Pepcid] 20 mg PO BID #20 tablet Is patient prescribed a controlled substance at d/c from ED?: No Referrals: Marco Zamora MD [Primary Care Provider] - 1-2 days Leeanna Oneill MD [STAFF PHYSICIAN] - 1-2 days Time of Disposition: 10:07
[2019-07-16] MEDS: HYDROmorphone 0.5 MG/0.5 ML SYRINGE IVP STA ×2 (07:26→07:29)
[2019-07-16 07:32] VITALS: PULSE 90
[2019-07-16 07:37] LABS: INR 0.9 (<1.2); Prothrombin Time 9.6 sec (9.0-12.0)
[2019-07-16 07:41] LABS: ALT 24 U/L (21-72); AST 22 U/L (17-59); African American GFR (CKD) >90 (>60 ml/min/1.73 sqM); Alkaline Phosphatase 59 U/L (38-126); Amylase <30 U/L (30-110); Anion Gap 10 mmol/L; Blood Urea Nitrogen 21 mg/dL (9-20); Calcium 9.2 mg/dL (8.4-10.2); Carbon Dioxide 22 mmol/L (22-30); Chloride 108 mmol/L (98-107); Glucose 122 mg/dL (74-99); Non-African American GFR(CKD) >90 (>60 ml/min/1.73 sqM); Potassium 4.2 mmol/L (3.5-5.1); Sodium 140 mmol/L (137-145); Total Bilirubin 0.9 mg/dL (0.2-1.3); Total Protein 6.8 g/dL (6.3-8.2)
--- NOTE | 2019-07-16 07:46 | XR ---
EXAMINATION TYPE: XR chest 2V DATE OF EXAM: 07/16/2019 COMPARISON: 05/13/2019 HISTORY: Shortness of breath TECHNIQUE: Frontal and lateral views of the chest are obtained. FINDINGS: Scattered senescent parenchymal changes noted. Hyperinflation compatible with COPD. No evidence for infiltrate. No evidence for atelectasis. Heart size is stable. Mediastinal structures are stable and grossly unremarkable. No evidence for hilar prominence. Degenerative changes dorsal spine. IMPRESSION: 1. No evidence for acute pulmonary disease.
--- NOTE | 2019-07-16 07:50 | XR ---
EXAMINATION TYPE: XR KUB DATE OF EXAM: 07/16/2019 COMPARISON: NONE HISTORY: Pain TECHNIQUE: Single supine KUB image of the abdomen is obtained FINDINGS: Small bowel demonstrates no evidence for dilatation or air fluid levels. Gas and fecal material is seen in non-distended colon. No convincing evidence for pneumoperitoneum. No unusual calcifications. The lung bases are clear. The osseous structures are intact. IMPRESSION: 1. Overall nonobstructive bowel gas pattern.
[2019-07-16 07:58] LABS: Basophils # (A) 0.1 k/uL (0-0.2); Basophils % (A) 1 %; Eosinophils # (A) 0.4 k/uL (0-0.7); Eosinophils % (A) 5 %; HCT 48.1 % (39.0-53.0); HGB 16.5 gm/dL (13.0-17.5); Lymphocytes # (A) 2.2 k/uL (1.0-4.8); Lymphocytes % (A) 29 %; MCHC 34.3 g/dL (31.0-37.0); MCV 93.2 fL (80.0-100.0); Mean Platelet Volume 5.1; Monocytes # (A) 0.6 k/uL (0-1.0); Monocytes % (A) 7 %; Neutrophils # (A) 4.4 k/uL (1.3-7.7); Neutrophils % (A) 57 %; Platelet Count 298 k/uL (150-450); RBC 5.16 m/uL (4.30-5.90); RDW 12.8 % (11.5-15.5); WBC 7.8 k/uL (3.8-10.6)
[2019-07-16 08:25] LABS: Appearance,Urine Clear (Clear); Bilirubin,Urine Negative (Negative); Blood,Urine Negative (Negative); Color,Urine Yellow; Glucose,Urine (UA) Negative (Negative); Ketones,Urine Trace (Negative); Leukocyte Esterase,Urine Negative (Negative); Nitrite,Urine Negative (Negative); PH, Urine 5.5 (5.0-8.0); Protein,Urine Trace (Negative); Specific Gravity,Urine 1.033 (1.001-1.035); Urobilinogen,Urine <2.0 mg/dL (<2.0)
--- NOTE | 2019-07-16 09:04 | US ---
EXAMINATION TYPE: US gallbladder DATE OF EXAM: 07/16/2019 COMPARISON: CT CLINICAL HISTORY: RUQ pain. Epigastric fullness, nausea, loose stools, history of gastritis per patie nt EXAM MEASUREMENTS: Liver Length: 17.8 cm Gallbladder Wall: 0.26 cm CBD: 0.50 cm Right Kidney: 12.0 x 7.3 x 5.4 cm Pancreas: hyperechoic Liver: wnl Gallbladder: wnl Evidence for sonographic Mason's sign: no CBD: wnl Right Kidney: hyperechoic parallel lines mid pole suggests vascular wall calcifications IMPRESSION: No significant abnormality to account for the patient's symptoms..
[2019-07-16 10:20] VITALS: BP 127/85
== END 2019-07-16 10:19 | disposition home or self-care (01) ==
LOC: EC 06:37
DX: J45.909 Unspecified asthma, uncomplicated (principal); E11.9 Type 2 diabetes mellitus without complications; E78.5 Hyperlipidemia, unspecified; I10 Essential (primary) hypertension; Z79.51 Long term (current) use of inhaled steroids; Z79.84 Long term (current) use of oral hypoglycemic drugs; Z79.899 Other long term (current) drug therapy; Z87.891 Personal history of nicotine dependence
CPT/HCPCS: 36415; 93005; 80053; 82150; 83690; 84484; 85025; 85610; 85730; 81003; 71046; 74018; 76705; 99285; 96374; 96375; 96361 ×3; J2405; C9113

== ENCOUNTER 2019-08-28 19:56 | Inpatient (IN) | payer BC ==
[2019-08-28] MEDS ORDERED: methylPREDNISolone SOD SUCCI 125 MG/2 ML VIAL IV STA (20:11)
[2019-08-28] MEDS ORDERED: SODIUM CHLORIDE 0.9% 1,000 ML IV STA ×2 (20:11)
[2019-08-28] MEDS ORDERED: AZITHROMYCIN 500 MG in SODIUM CHLORIDE 0.9% 250 ML IVPB STA (20:11)
[2019-08-28] MEDS ORDERED: IPRATROPIUM 0.5 MG/2.5 ML NEBU INHALATION STA (20:11)
[2019-08-28] MEDS ORDERED: ALBUTEROL NEBULIZED 2.5 MG/3 ML INHALATION STA (20:11)
--- NOTE | 2019-08-28 20:13 | ED ---
SOB HPI - General Chief Complaint: Shortness of Breath Stated Complaint: ALEXUS, chest tightness Time Seen by Provider: 08/28/19 20:08 Source: patient, RN notes reviewed, old records reviewed Mode of arrival: ambulatory Limitations: no limitations - History of Present Illness Initial Comments: This is a 59-year-old male here for evaluation of severe shortness of breath long history of COPD. No recent hospitalizations. No travel history or known sick contacts. Patient with some fever and chills. No chest pain but does have does have congestion does not feel well. Shortness of breath is severe especially with exertion. MD Complaint: shortness of breath, cough -: days(s) Severity: moderate Severity scale (1-10): 4 Quality: dull Consistency: constant Improves With: nothing Worsens With: nothing Known History Of: COPD Context: recent URI Associated Symptoms: denies other symptoms Treatments Prior to Arrival: none - Related Data Home Medications Medication Instructions Recorded Confirmed Albuterol Sulfate [Proair Hfa] 2 puff INHALATION RT-QID PRN 05/18/18 07/16/19 Montelukast Sodium [Singulair] 10 mg PO DAILY@1000 05/18/18 07/16/19 Albuterol Nebulized [Ventolin 2.5 mg INHALATION RT-Q4H PRN 07/11/18 07/16/19 Nebulized] metFORMIN HCL [metFORMIN HCL ER] 750 mg PO DAILY@1500 09/03/18 07/16/19 Lisinopril 20 mg PO DAILY@1800 10/30/18 07/16/19 Previous Rx's Medication Instructions Recorded Famotidine [Pepcid] 20 mg PO BID #20 tablet 07/16/19 Sucralfate [Carafate] 1 gm PO ACHS #30 tablet 07/16/19 Allergies Allergy/AdvReac Type Severity Reaction Status Date / Time No Known Allergies Allergy Verified 08/28/19 20:00 Review of Systems ROS Statement: Those systems with pertinent positive or pertinent negative responses have been documented in the HPI. ROS Other: All systems not noted in ROS Statement are negative. Past Medical History Past Medical History: Asthma, Diabetes Mellitus, Hyperlipidemia, Hypertension, Osteoarthritis (OA) Additional Past Medical History / Comment(s): Persistent asthma, NIDDM II- arthritis R knee, current L ankle sprain History of Any Multi-Drug Resistant Organisms: None Reported Past Surgical History: Hernia Repair Additional Past Surgical History / Comment(s): Umbilical hernia repair Past Anesthesia/Blood Transfusion Reactions: No Reported Reaction, Motion Sickness Past Psychological History: No Psychological Hx Reported Smoking Status: Former smoker Past Alcohol Use History: None Reported Past Drug Use History: None Reported - Past Family History Mother History Unknown: Yes Family Medical History: Cancer Additional Family Medical History / Comment(s): Mother of ovarian cancer at the age of 78yrs. Father History Unknown: Yes Family Medical History: GI Bleed Additional Family Medical History / Comment(s): Father in his 30s of a internal bleed. Brother(s) Family Medical History: No Reported History Sister(s) Family Medical History: No Reported History Daughter(s) Family Medical History: Unable to Obtain General Exam Limitations: no limitations General appearance: alert, in no apparent distress Head exam: Present: atraumatic, normocephalic, normal inspection Eye exam: Present: normal appearance, PERRL, EOMI. Absent: scleral icterus, conjunctival injection, periorbital swelling ENT exam: Present: normal exam, mucous membranes moist Neck exam: Present: normal inspection. Absent: tenderness, meningismus, lymphadenopathy Respiratory exam: Present: respiratory distress, wheezes, accessory muscle use, decreased breath sounds, prolonged expiratory. Absent: rales, rhonchi, stridor Cardiovascular Exam: Present: normal rhythm, tachycardia, normal heart sounds. Absent: systolic murmur, diastolic murmur, rubs, gallop, clicks GI/Abdominal exam: Present: soft, normal bowel sounds. Absent: distended, t enderness, guarding, rebound, rigid Extremities exam: Present: normal inspection, full ROM, normal capillary refill. Absent: tenderness, pedal edema, joint swelling, calf tenderness Back exam: Present: normal inspection Neurological exam: Present: alert, oriented X3, CN II-XII intact Psychiatric exam: Present: normal affect, normal mood Skin exam: Present: warm, dry, intact, normal color. Absent: rash Course Vital Signs 08/28/19 08/28/19 08/28/19 19:58 21:01 21:31 Temperature 98.1 F Pulse Rate 113 H 113 H 120 H Respiratory 26 H 20 18 Rate Blood Pressure 162/94 O2 Sat by Pulse 92 L Oximetry 08/28/19 22:55 Temperature Pulse Rate 116 H Respiratory 16 Rate Blood Pressure 136/76 O2 Sat by Pulse 95 Oximetry - Reevaluation(s) Reevaluation #1: 08/28/19 23:02 Medical record is reviewed Reevaluation #2: 08/28/19 23:02 Patient is severely short of breath but improved breathing treatment here in the ER - Consultations Consultation #1: spoke w Dr Holland who is agreeable for admission Medical Decision Making - Medical Decision Making 5 female ER COPD with hypoxia as well as pneumonia. Patient be admitted for IV antibiotics and breathing treatments, monitoring of respiratory status - Lab Data Result diagrams: 08/28/19 20:22 08/28/19 20:22 Lab Results 08/28/19 08/28/19 08/28/19 Range/Units 20:22 20:22 20:22 WBC 10.7 H (3.8-10.6) k/uL RBC 5.11 (4.30-5.90) m/uL Hgb 16.0 (13.0-17.5) gm/dL Hct 47.7 (39.0-53.0) % MCV 93.4 (80.0-100.0) fL MCH 31.3 (25.0-35.0) pg MCHC 33.5 (31.0-37.0) g/dL RDW 13.1 (11.5-15.5) % Plt Count 242 (150-450) k/uL Neutrophils % 79 % Lymphocytes % 10 % Monocytes % 7 % Eosinophils % 3 % Basophils % 0 % Neutrophils # 8.4 H (1.3-7.7) k/uL Lymphocytes # 1.1 (1.0-4.8) k/uL Monocytes # 0.7 (0-1.0) k/uL Eosinophils # 0.3 (0-0.7) k/uL Basophils # 0.0 (0-0.2) k/uL PT (9.0-12.0) sec INR (<1.2) APTT (22.0-30.0) sec Sodium 139 (137-145) mmol/L Potassium 4.1 (3.5-5.1) mmol/L Chloride 105 (98-107) mmol/L Carbon Dioxide 25 (22-30) mmol/L Anion Gap 9 mmol/L BUN 18 (9-20) mg/dL Creatinine 0.99 (0.66-1.25) mg/dL Est GFR (CKD-EPI)AfAm >90 (>60 ml/min/1.73 sqM) Est GFR (CKD-EPI)NonAf 82 (>60 ml/min/1.73 sqM) Glucose 135 H (74-99) mg/dL Calcium 8.9 (8.4-10.2) mg/dL Magnesium 1.9 (1.6-2.3) mg/dL Total Bilirubin 0.9 (0.2-1.3) mg/dL AST 24 (17-59) U/L ALT 17 (4-49) U/L Alkaline Phosphatase 58 (38-126) U/L Troponin I (0.000-0.034) ng/mL NT-Pro-B Natriuret Pep 14 pg/mL Total Protein 6.9 (6.3-8.2) g/dL Albumin 4.0 (3.5-5.0) g/dL 08/28/19 08/28/19 Range/Units 20:22 20:22 WBC (3.8-10.6) k/uL RBC (4.30-5.90) m/uL Hgb (13.0-17.5) gm/dL Hct (39.0-53.0) % MCV (80.0-100.0) fL MCH (25.0-35.0) pg MCHC (31.0-37.0) g/dL RDW (11.5-15.5) % Plt Count (150-450) k/uL Neutrophils % % Lymphocytes % % Monocytes % % Eosinophils % % Basophils % % Neutrophils # (1.3-7.7) k/uL Lymphocytes # (1.0-4.8) k/uL Monocytes # (0-1.0) k/uL Eosinophils # (0-0.7) k/uL Basophils # (0-0.2) k/uL PT 9.5 (9.0-12.0) sec INR 0.9 (<1.2) APTT 23.5 (22.0-30.0) sec Sodium (137-145) mmol/L Potassium (3.5-5.1) mmol/L Chloride (98-107) mmol/L Carbon Dioxide (22-30) mmol/L Anion Gap mmol/L BUN (9-20) mg/dL Creatinine (0.66-1.25) mg/dL Est GFR (CKD-EPI)AfAm (>60 ml/min/1.73 sqM) Est GFR (CKD-EPI)NonAf (>60 ml/min/1.73 sqM) Glucose (74-99) mg/dL Calcium (8.4-10.2) mg/dL Magnesium (1.6-2.3) mg/dL Total Bilirubin (0.2-1.3) mg/dL AST (17-59) U/L ALT (4-49) U/L Alkaline Phosphatase (38-126) U/L Troponin I <0.012 (0.000-0.034) ng/mL NT-Pro-B Natriuret Pep pg/mL Total Protein (6.3-8.2) g/dL Albumin (3.5-5.0) g/dL - EKG Data -: EKG Interpreted by Me (KG shows sinus tachycardia rate of 108, OK 160, QRS, QTc 450) - Radiology Data Radiology results: report reviewed (Chest x-ray is positive for pneumonia), image reviewed Critical Care Time Critical Care Time: Yes Total Critical Care Time: 31 Disposition Clinical Impression: Asthma, Asthma with exacerbation, Acute exacerbation of chronic obstructive pulmonary disease, Community acquired pneumonia, Hypoxia Disposition: ADMITTED IP TO THIS HOSP Condition: Fair Is patient prescribed a controlled substance at d/c from ED?: No Referrals: Marco Zamora MD [Primary Care Provider] - 1-2 days
[2019-08-28 20:46] LABS: Basophils % (A) 0 %; Eosinophils # (A) 0.3 k/uL (0-0.7); Eosinophils % (A) 3 %; HCT 47.7 % (39.0-53.0); Lymphocytes # (A) 1.1 k/uL (1.0-4.8); Lymphocytes % (A) 10 %; MCH 31.3 pg (25.0-35.0); MCHC 33.5 g/dL (31.0-37.0); MCV 93.4 fL (80.0-100.0); Mean Platelet Volume 6.8; Monocytes # (A) 0.7 k/uL (0-1.0); Monocytes % (A) 7 %; Neutrophils # (A) 8.4 k/uL (1.3-7.7); Neutrophils % (A) 79 %; Platelet Count 242 k/uL (150-450); RBC 5.11 m/uL (4.30-5.90); RDW 13.1 % (11.5-15.5); WBC 10.7 k/uL (3.8-10.6)
[2019-08-28 20:55] LABS: ALT 17 U/L (4-49); AST 24 U/L (17-59); African American GFR (CKD) >90 (>60 ml/min/1.73 sqM); Alkaline Phosphatase 58 U/L (38-126); Anion Gap 9 mmol/L; Blood Urea Nitrogen 18 mg/dL (9-20); Calcium 8.9 mg/dL (8.4-10.2); Carbon Dioxide 25 mmol/L (22-30); Chloride 105 mmol/L (98-107); Glucose 135 mg/dL (74-99); Magnesium 1.9 mg/dL (1.6-2.3); Non-African American GFR(CKD) 82 (>60 ml/min/1.73 sqM); Potassium 4.1 mmol/L (3.5-5.1); Sodium 139 mmol/L (137-145); Total Bilirubin 0.9 mg/dL (0.2-1.3); Total Protein 6.9 g/dL (6.3-8.2)
[2019-08-28 20:58] LABS: INR 0.9 (<1.2); Partial Thromboplastin Time 23.5 sec (22.0-30.0); Prothrombin Time 9.5 sec (9.0-12.0)
--- NOTE | 2019-08-28 21:03 | XR ---
EXAMINATION TYPE: XR chest 1V portable DATE OF EXAM: 08/28/2019 COMPARISON: 07/16/2019 INDICATION: Short of breath history of asthma TECHNIQUE: Single frontal view of the chest is obtained. FINDINGS: The heart size is normal. The pulmonary vasculature is normal. Some minimal infiltrate is in the left lower lobe. Correlate for atelectasis or pneumonia. IMPRESSION: 1. Mild infiltrate in the left lower lobe. Correlate for atelectasis or pneumonia.
[2019-08-28] MEDS ORDERED: PNEUMONIA PROTOCOL UTILIZED 1 EACH MISC PO PRN (22:59)
[2019-08-28] MEDS ORDERED: ALBUTEROL NEBULIZED 2.5 MG/3 ML INHALATION PRN (22:59)
[2019-08-29 07:46] LABS: Glucose,Whole Blood 173 mg/dL (75-99)
[2019-08-29] MEDS: IPRATROPIUM-ALBUTEROL 3 ML NEB INHALATION SCH ×4 (07:52→19:17)
--- NOTE | 2019-08-29 08:31 | XR ---
EXAMINATION TYPE: XR chest 2V DATE OF EXAM: 08/29/2019 COMPARISON: 08/28/2019 HISTORY: 59-year-old male pneumonia TECHNIQUE: PA and lateral views FINDINGS: Heart normal size. Aorta within normal limits. Focal peripheral right basilar opacity has a somewhat bandlike appearance. There is patchy retrocardiac opacity. No pleural effusion. IMPRESSION: 1. Focal opacity peripheral right base has a bandlike appearance, probable atelectasis. 2. Some patchy retrocardiac atelectasis versus early infiltrate.
[2019-08-29 10:13] LABS: Glucose,Whole Blood 240 mg/dL (75-99)
[2019-08-29] MEDS: INSULIN ASPART (NovoLOG) 100 UNIT/ML VIAL SQ SCH ×3 (10:14→20:53)
[2019-08-29] MEDS: ENOXAPARIN 40 MG/0.4 ML SYRINGE SQ SCH (10:15)
[2019-08-29] MEDS: methylPREDNISolone SOD SUCCI 125 MG/2 ML VIAL IV SCH ×4 (10:19→23:21)
[2019-08-29] MEDS: SODIUM CHLORIDE 0.9% 1,000 ML IV SCH ×3 (10:20→20:10)
[2019-08-29 11:49] LABS: Glucose,Whole Blood 160 mg/dL (75-99)
[2019-08-29] MEDS ORDERED: INSULIN ASPART (NovoLOG) 100 UNIT/ML VIAL SQ ONE (12:10)
--- NOTE | 2019-08-29 14:19 | P.HPIM ---
History of Present Illness H&P Date: 08/29/19 This is a 59-year-old male one of Dr. Zamora with a previous medical history significant for mild persistent asthma, hypertension and hypertensive cardio vascular disease, hyperlipidemia, psoriatic arthritis, morbid obesity with sleep apnea currently has no CPAP. Patient states that he started feeling cold symptoms about a week ago but yesterday became significantly worse. He denies any fever or chills. He does not have home oxygen. He was using his nebulizer without much improvement. He complains of a dry cough. He has not seen Dr. PATIENCE Griffith in some time. He also complains of tightness in his chest. Patient presented to [facility] emergency center for evaluati on. Patient was afebrile, heart rate in the 1 teens, blood pressure 162/94, pulse ox 92% on room air. WBC 10.7, hemoglobin 16, electrolytes and liver function tests within normal limits, creatinine 0.99, proBNP 14, troponin negative. Chest x-ray reveals focal opacities peripheral right lung base bandlike appearance probable atelectasis. Some patchy retrocardiac atelectasis versus early infiltrate. Patient has been started on azithromycin and ceftriaxone and consult requested with Dr. PATIENCE Griffith. Review of Systems Constitutional: Reports chills, Reports fatigue, Reports malaise, Reports poor appetite, Reports weakness, Denies fever Eyes: denies blurred vision, denies pain Ears, nose, mouth and throat: Denies dysphagia, Denies nasal congestion, Denies nasal discharge, Denies vertigo Cardiovascular: Reports shortness of breath, Denies chest pain, Denies syncope Respiratory: Reports cough, Reports dyspnea, Reports wheezing, Denies cough with sputum, Denies excessive sputum, Denies hemoptysis, Denies home oxygen Gastrointestinal: Denies abdominal pain, Denies diarrhea, Denies loss of appetite, Denies nausea, Denies vomiting Genitourinary: Denies dysuria, Denies urinary retention Musculoskeletal: Denies frequent falls, Denies gait dysfunction, Denies muscle weakness, Denies myalgias Integumentary: Denies pruritus, Denies rash, Denies wounds Neurological: Denies change in mentation, Denies change in speech, Denies gait dysfunction, Denies numbness, Denies weakness Psychiatric: Denies anxiety, Denies depression Endocrine: Denies fatigue, Denies weight change Past Medical History Past Medical History: Asthma, Diabetes Mellitus, Hyperlipidemia, Hypertension, Osteoarthritis (OA) Additional Past Medical History / Comment(s): Persistent asthma, NIDDM II- arthritis R knee, current L ankle sprain History of Any Multi-Drug Resistant Organisms: None Reported Past Surgical History: Hernia Repair Additional Past Surgical History / Comment(s): Umbilical hernia repair Past Anesthesia/Blood Transfusion Reactions: No Reported Reaction, Motion Sickness Past Psychological History: No Psychological Hx Reported Additional Psychological History / Comment(s): Pt resides in a home and his brother lives on the other side of this home. He has a glucometer. He has a nebulizer. 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 Father History Unknown: Yes Family Medical History: GI Bleed Additional Family Medical History / Comment(s): Father around age 50 from a bleeding ulcer. Brother(s) Family Medical History: No Reported History Additional Family Medical History / Comment(s): The patient has 2 brothers and one from pneumonia at age 59, 1 is alive with history of bariatric surgery. Sister(s) Family Medical History: No Reported History Additional Family Medical History / Comment(s): Patient has 2 sisters and one has history of gallbladder disease. Daughter(s) Family Medical History: Unable to Obtain Additional Family Medical History / Comment(s): Patient has one daughter with no major medical problems. Son(s) Additional Family Medical History / Comment(s): Patient has 2 sons and one has hypertension. Medications and Allergies Home Medications Medication Instructions Recorded Confirmed Type Albuterol Sulfate [Proair Hfa] 2 puff INHALATION RT-QID PRN 05/18/18 08/28/19 History Montelukast Sodium [Singulair] 10 mg PO HS 05/18/18 08/28/19 History Albuterol Nebulized [Ventolin 2.5 mg INHALATION RT-QID PRN 07/11/18 08/28/19 History Nebulized] Lisinopril 20 mg PO DAILY@1800 10/30/18 08/28/19 History Allergies Allergy/AdvReac Type Severity Reaction Status Date / Time No Known Allergies Allergy Verified 08/28/19 23:23 Physical Exam Vitals: Vital Signs Temp Pulse Pulse Resp BP BP Pulse Ox 08/29/19 00:12 98.5 F 117 H 16 127/75 92 L 08/28/19 22:55 116 H 16 136/76 95 08/28/19 21:31 120 H 18 08/28/19 21:01 113 H 20 08/28/19 19:58 98.1 F 113 H 26 H 162/94 92 L Intake and Output 08/28/19 08/29/19 08/29/19 22:59 06:59 14:59 Other: Weight 142.428 kg 142.428 kg General appearance: mild distress, morbidly obese - EENT Eyes: anicteric sclerae, EOMI, PERRLA, no ptosis, no scleral icterus, normal appearance ENT: hearing grossly normal, NA/AT, normal oropharynx, no thrush Ears: bilateral: normal - Neck Neck: no lymphadenopathy, normal ROM, no rigidity, no stridor, no thyromegaly Carotids: bilateral: upstroke normal - Respiratory Respiratory: bilateral: diminished, wheezing, prolonged expiration, negative: dullness, rales, rhonchi, prolonged inspiration - Cardiovascular Rhythm: regular Heart sounds: normal: S1, S2 Abnormal Heart Sounds: no systolic murmur, no rub, no S3 Gallop, no S4 Gallop, no click - Gastrointestinal General gastrointestinal: normal bowel sounds, soft, no splenomegaly, no tenderness, no umbilical hernia, no ventral hernia - Integumentary Integumentary: normal, normal turgor - Neurologic Neurologic: CNII-XII intact - Musculoskeletal Musculoskeletal: gait normal - Psychiatric Psychiatric: A&O x's 3, appropriate affect, intact judgment & insight Results CBC & Chem 7: 08/28/19 20:22 08/28/19 20:22 Labs: Abnormal Lab Results - Last 24 Hours (Table) 08/28/19 08/28/19 Range/Units 20:22 20:22 WBC 10.7 H (3.8-10.6) k/uL Neutrophils # 8.4 H (1.3-7.7) k/uL Glucose 135 H (74-99) mg/dL Thrombosis Risk Factor Assmnt - DVT/VTE Prophylaxis DVT/VTE Prophylaxis: Pharmacologic Prophylaxis ordered - Choose All That Apply Each Factor Represents 1 point: Age 41-60 years, Obesity (BMI >25), Serious lung disease incl. pneumonia (< 1month) Thrombosis Risk Factor Assessment Total Risk Factor Score: 3 Thrombosis Risk Factor Assessment Level: Moderate Risk Assessment and Plan Plan: 1. Acute respiratory insufficiency due to right-sided pneumonia and acute asthma exacerbation. Start Solu-Medrol 60 mg IV push every 6 hours, DuoNeb 3 mg nebulization 4 times every day, Pulmicort 1 mg nebulization twice every day, Zithromax 500 mg orally once every day, Pulmicort 1 mg twice daily, continue Singulair 10 mg at bedtime, pulmonary consultation. 2. Mild persistent asthma. Continue treatment as in paragraph #1. 3. Hypertension and hypertensive cardiovascular disease. Continue patient on lisinopril 20 mg orally once every day. 4. Hyperlipidemia. Low-cholesterol diet. 5. Osteoarthritis, generalized. 6. 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 Continue patient on sliding scale insulin. Continue metformin 500 mg orally twice every day. Became before each meal and at bedtime. 7. Morbid obesity with obstructive sleep apnea currently has no CPAP. 8. DVT prophylaxis. Lovenox subcu 9. GI prophylaxis. Continue Protonix 40 mg orally once every day. CODE STATUS: Full code Patient will be admitted to the hospital for a minimum of 2 night stay Discharge plan: Home Impression and plan of care have been directed as dictated by the signing physician. Kiley Diaz nurse practitioner acting as scribe for signing physician.
[2019-08-29] MEDS: MONTELUKAST 10 MG TAB PO SCH (15:33)
[2019-08-29] MEDS: LISINOPRIL 20 MG TAB PO SCH (15:33)
[2019-08-29 17:23] LABS: Glucose,Whole Blood 142 mg/dL (75-99)
[2019-08-29] MEDS: BUDESONIDE 1 MG/2 ML NEBU INHALATION SCH (19:17)
[2019-08-29 20:16] LABS: Glucose,Whole Blood 207 mg/dL (75-99)
[2019-08-29] MEDS: AZITHROMYCIN 500 MG TAB PO SCH (20:52)
[2019-08-29] MEDS ORDERED: AZITHROMYCIN 500 MG in SODIUM CHLORIDE 0.9% 250 ML IVPB SCH (23:00)
[2019-08-30] MEDS: methylPREDNISolone SOD SUCCI 125 MG/2 ML VIAL IV SCH (05:22)
[2019-08-30] MEDS: SODIUM CHLORIDE 0.9% 1,000 ML IV SCH (05:23)
[2019-08-30 06:56] LABS: Glucose,Whole Blood 143 mg/dL (75-99)
[2019-08-30] MEDS: ENOXAPARIN 40 MG/0.4 ML SYRINGE SQ SCH (07:27)
[2019-08-30] MEDS: PANTOPRAZOLE 40 MG TABLET PO SCH (07:27)
[2019-08-30] MEDS: INSULIN ASPART (NovoLOG) 100 UNIT/ML VIAL SQ SCH ×4 (07:27→20:51)
[2019-08-30] MEDS: methylPREDNISolone SOD SUCCI 40 MG/ML 1 ML VIAL IV SCH ×3 (08:23→23:15)
[2019-08-30] MEDS: BUDESONIDE 1 MG/2 ML NEBU INHALATION SCH ×2 (09:24→21:12)
[2019-08-30] MEDS: IPRATROPIUM-ALBUTEROL 3 ML NEB INHALATION SCH ×4 (09:25→21:12)
[2019-08-30 11:59] LABS: Glucose,Whole Blood 147 mg/dL (75-99)
--- NOTE | 2019-08-30 15:06 | P.PN ---
Subjective Progress Note Date: 08/30/19 This is a 59-year-old male one of Dr. Zamora with a previous medical history significant for mild persistent asthma, hypertension and hypertensive cardio vascular disease, hyperlipidemia, psoriatic arthritis, morbid obesity with sleep apnea currently has no CPAP. Patient states that he started feeling cold symptoms about a week ago but yesterday became significantly worse. He denies any fever or chills. He does not have home oxygen. He was using his nebulizer without much improvement. He complains of a dry cough. He has not seen Dr. PATIENCE Griffith in some time. He also complains of tightness in his chest. Patient presented to [facility] emergency center for evaluation. Patient was afebrile, heart rate in the 1 teens, blood pressure 162/94, pulse ox 92% on room air. WBC 10.7, hemoglobin 16, electrolytes and liver function tests within normal limits, creatinine 0.99, proBNP 14, troponin negative. Chest x-ray reveals focal opacities peripheral right lung base bandli ke appearance probable atelectasis. Some patchy retrocardiac atelectasis versus early infiltrate. Patient has been started on azithromycin and ceftriaxone and consult requested with Dr. PATIENCE Griffith. 08/30: Patient states he is feeling better today. 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 He has had a bowel movement this morning. He does continue to have some cough. Lung sounds are improving. Solu-Medrol will be decreased to 40 mg every 8 hours. Pulmonary is on consult. Review of Systems Constitutional: Denies chills, Reports fatigue, Reports malaise, Reports poor appetite, Reports weakness, Denies fever Eyes: denies blurred vision, denies pain Ears, nose, mouth and throat: Denies dysphagia, Denies nasal congestion, Denies nasal discharge, Denies vertigo Cardiovascular: Reports shortness of breath, Denies chest pain, Denies syncope Respiratory: Reports cough, Reports dyspnea, Reports wheezing, Denies cough with sputum, Denies excessive sputum, Denies hemoptysis, Denies home oxygen Gastrointestinal: Denies abdominal pain, Denies diarrhea, Denies loss of appetite, Denies nausea, Denies vomiting Genitourinary: Denies dysuria, Denies urinary retention Musculoskeletal: Denies frequent falls, Denies gait dysfunction, Denies muscle weakness, Denies myalgias Integumentary: Denies pruritus, Denies rash, Denies wounds Neurological: Denies change in mentation, Denies change in speech, Denies gait dysfunction, Denies numbness, Denies weakness Psychiatric: Denies anxiety, Denies depression Endocrine: Denies fatigue, Denies weight change Objective - Vital Signs Vital signs: Vital Signs Temp 98.0 F 08/30/19 01:25 Pulse 100 08/30/19 01:25 Resp 18 08/30/19 01:25 BP 125/69 08/30/19 01:25 Pulse Ox 94 L 08/30/19 01:25 Intake & Output 08/29/19 08/30/19 08/30/19 18:59 06:59 18:59 Intake Total 532 1966 Balance 532 1966 Intake: Intake, IV Titration 950 Amount Sodium Chloride 0.9% 1, 900 000 ml @ 100 mls/hr IV . Q10H [facility] Rx#:[id number] cefTRIAXone 1 gm In 50 Sodium Chloride 0.9% 50 ml @ 100 mls/hr IVPB Q24H [facility] Rx#:[id number] Oral 532 1016 Other: Voiding Method Toilet Urinal # Voids 1 3 - Exam General appearance: No distress, morbidly obese - EENT Eyes: anicteric sclerae, EOMI, PERRLA, no ptosis, no scleral icterus, normal appearance ENT: hearing grossly normal, NA/AT, normal oropharynx, no thrush Ears: bilateral: normal - Neck Neck: no lymphadenopathy, normal ROM, no rigidity, no stridor, no thyromegaly Carotids: bilateral: upstroke normal - Respiratory Respiratory: bilateral: diminished, wheezing, prolonged expiration, negative: dullness, rales, rhonchi, prolonged inspiration - Cardiovascular Rhythm: regular Heart sounds: normal: S1, S2 Abnormal Heart Sounds: no systolic murmur, no rub, no S3 Gallop, no S4 Gallop, no click - Gastrointestinal General gastrointestinal: normal bowel sounds, soft, no splenomegaly, no tenderness, no umbilical hernia, no ventral hernia - Integumentary Integumentary: normal, normal turgor - Neurologic Neurologic: CNII-XII intact - Musculoskeletal Musculoskeletal: gait normal - Psychiatric Psychiatric: A&O x's 3, appropriate affect, intact judgment & insight - Labs CBC & Chem 7: 08/28/19 20:22 08/28/19 20:22 Labs: Abnormal Lab Results - Last 24 Hours (Table) 08/29/19 08/29/19 08/29/19 Range/Units 09:59 11:38 17:12 POC Glucose (mg/dL) 240 H 160 H 142 H (75-99) mg/dL 08/29/19 08/30/19 Range/Units 20:05 06:53 POC Glucose (mg/dL) 207 H 143 H (75-99) mg/dL Microbiology - Last 24 Hours (Table) 08/28/19 23:21 Blood Culture - Preliminary Blood No Growth after 24 hours Assessment and Plan Plan: 1. Acute respiratory insufficiency due to right-sided pneumonia and acute asthma exacerbation. Start Solu-Medrol decreased to 40 mg IV every 8 hours, DuoNeb 3 mg nebulization 4 times every day, Pulmicort 1 mg nebulization twice every day, Zithromax 500 mg orally once every day, Pulmicort 1 mg twice daily, continue Singulair 10 mg at bedtime, pulmonary consultation. 2. Mild persistent asthma. Continue treatment as in paragraph #1. 3. Hypertension and hypertensive cardiovascular disease. Continue patient on lisinopril 20 mg orally once every day. 4. Hyperlipidemia. Low-cholesterol diet. 5. Osteoarthritis, generalized. 6. 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 Continue patient on sliding scale insulin. Continue metformin 500 mg orally twice every day. Became before each meal and at bedtime. 7. Morbid obesity with obstructive sleep apnea currently has no CPAP. 8. DVT prophylaxis. Lovenox subcu 9. GI prophylaxis. Continue Protonix 40 mg orally once every day. CODE STATUS: Full code Discharge plan: Home in the next 24-48 hours. Impression and plan of care have been directed as dictated by the signing physician. Kiley Diaz nurse practitioner acting as scribe for signing physician.
[2019-08-30] MEDS: LISINOPRIL 20 MG TAB PO SCH (15:25)
[2019-08-30] MEDS: MONTELUKAST 10 MG TAB PO SCH (15:28)
--- NOTE | 2019-08-30 16:02 | CONS ---
CONSULTATION Joni Brown is a 59-year-old male who presented to [facility] ED with increasing shortness of breath of about 1 week duration. He is a patient of Dr. Zamora and is on bronchodilators and inhaled steroids along with montelukast. He has a known history of severe asthma, morbid obesity, and obstructive sleep apnea. He had no clear fever or chills. He had a cough and chest tightness. He subsequently was seen in the ER and admitted for further evaluation and management. PAST MEDICAL HISTORY: Positive for morbid obesity, history of severe asthma with frequent exacerbations, history of diabetes mellitus type 2, osteoarthritis, hyperlipidemia, umbilical hernia repair. SOCIAL HISTORY: The patient is a nonsmoker. Does not drink alcohol excessively. Works for the [employer]. FAMILY HISTORY: Positive for ovarian cancer in his mother. Father had a history of an internal bleed and in his 30s. MEDICATIONS: Prior to admission were montelukast, lisinopril, ProAir, and Ventolin. He had been on another inhaler twice a day, he believes it is a steroid inhaler. PHYSICAL EXAMINATION: His blood pressure is 170/81, respiratory rate of 16, pulse of 87, temperature 98 degrees Fahrenheit, O2 saturation on 2 L by nasal cannula is 93%. HEENT reveals pupils that are equal. Redundant tissue in the posterior pharynx. Chest reveals decreased breath sounds with prolonged exhalation. Faint expiratory wheeze. Cardiovascular system reveals an S1, S2. Abdomen is soft. There is trace pedal edema. LABS: Reveal white count of 10.7, neutrophil count of 8.4, eosinophil count of 0.3. Sodium 139, potassium 4.1, chloride 105, bicarb 25, BUN 18, creatinine 0.99. Chest x-ray showed peripheral right base band-like appearance consistent with possible atelectatic change versus infiltrate. IMPRESSION: 1. Severe asthma with acute exacerbation. 2. Obstructive sleep apnea. 3. Possible secondary bacterial infection. Continue azithromycin and Rocephin. Keep him on GI and DVT prophylaxis. Continue montelukast, bronchodilators and aerosolized steroids. Continue IV steroids. His prognosis at this time remains fair. He was counseled regarding his condition. He may be a candidate for a biologic, which had been discussed in the past with him to prevent severe exacerbations. MMODL / IJN: [id number] /
[2019-08-30 16:52] LABS: Glucose,Whole Blood 128 mg/dL (75-99)
[2019-08-30 20:31] LABS: Glucose,Whole Blood 203 mg/dL (75-99)
[2019-08-30] MEDS: AZITHROMYCIN 500 MG TAB PO SCH (20:51)
[2019-08-31 06:55] LABS: Glucose,Whole Blood 127 mg/dL (75-99)
[2019-08-31] MEDS: INSULIN ASPART (NovoLOG) 100 UNIT/ML VIAL SQ SCH ×4 (07:05→21:11)
[2019-08-31] MEDS: PANTOPRAZOLE 40 MG TABLET PO SCH (07:12)
[2019-08-31] MEDS: methylPREDNISolone SOD SUCCI 40 MG/ML 1 ML VIAL IV SCH (07:12)
[2019-08-31] MEDS: ENOXAPARIN 40 MG/0.4 ML SYRINGE SQ SCH (07:12)
[2019-08-31 07:43] LABS: HCT 45.3 % (39.0-53.0); HGB 14.7 gm/dL (13.0-17.5); MCH 30.7 pg (25.0-35.0); MCHC 32.4 g/dL (31.0-37.0); Platelet Count 272 k/uL (150-450); RBC 4.77 m/uL (4.30-5.90); RDW 13.1 % (11.5-15.5); WBC 14.4 k/uL (3.8-10.6)
[2019-08-31 07:59] LABS: African American GFR (CKD) >90 (>60 ml/min/1.73 sqM); Anion Gap 12 mmol/L; Blood Urea Nitrogen 20 mg/dL (9-20); Carbon Dioxide 25 mmol/L (22-30); Chloride 101 mmol/L (98-107); Glucose 139 mg/dL (74-99); Non-African American GFR(CKD) >90 (>60 ml/min/1.73 sqM); Potassium 4.8 mmol/L (3.5-5.1); Sodium 138 mmol/L (137-145)
[2019-08-31] MEDS: IPRATROPIUM-ALBUTEROL 3 ML NEB INHALATION SCH ×4 (08:36→19:26)
[2019-08-31] MEDS: BUDESONIDE 1 MG/2 ML NEBU INHALATION SCH ×2 (08:36→19:27)
[2019-08-31 11:45] LABS: Glucose,Whole Blood 135 mg/dL (75-99)
[2019-08-31 13:37] LABS: Glucose,Whole Blood 167 mg/dL (75-99)
[2019-08-31] MEDS ORDERED: MECLIZINE 25 MG TAB PO STA (14:10)
[2019-08-31] MEDS ORDERED: SODIUM CHLORIDE 0.9% 1,000 ML IV ONE (14:10)
[2019-08-31] MEDS: LISINOPRIL 20 MG TAB PO SCH (14:17)
[2019-08-31] MEDS ORDERED: MONTELUKAST 10 MG TAB PO SCH (15:00)
[2019-08-31 17:16] LABS: Glucose,Whole Blood 123 mg/dL (75-99)
[2019-08-31 17:31] LABS: Hemoglobin A1C 6.4 % (4.0-6.0)
[2019-08-31] MEDS: AZITHROMYCIN 500 MG TAB PO SCH (18:48)
--- NOTE | 2019-08-31 19:39 | PN ---
PROGRESS NOTE DATE OF SERVICE: 08/31/2019 Joni Brown was seen on August 31, 2019. He has been feeling dizzy. On physical examination, his vital signs did reveal an element of orthostatic hypotension. On examination, there is no jugular venous distention. Chest reveals decreased breath sounds with prolonged exhalation. No clear wheeze today. Cardiovascular system is S1, S2. Abdomen is soft. There is trace pedal edema. IMPRESSION: At this time is: 1. Severe asthma with acute exacerbation. 2. Obesity. 3. Orthostatic hypotension, possibly secondary to fluid status. At this point in time, increase his fluid intake. Continue him on bronchodilators, aerosolized steroids and systemic steroids. His prognosis is fair. MMODL / IJN: [id number] /
[2019-08-31 20:46] LABS: Glucose,Whole Blood 122 mg/dL (75-99)
[2019-09-01 02:29] VITALS: RESP 16
[2019-09-01 07:04] LABS: Glucose,Whole Blood 102 mg/dL (75-99)
[2019-09-01] MEDS: INSULIN ASPART (NovoLOG) 100 UNIT/ML VIAL SQ SCH (07:41)
[2019-09-01] MEDS: PANTOPRAZOLE 40 MG TABLET PO SCH (07:47)
[2019-09-01] MEDS: ENOXAPARIN 40 MG/0.4 ML SYRINGE SQ SCH (07:47)
[2019-09-01 08:02] VITALS: TEMP 98.6
[2019-09-01] MEDS: IPRATROPIUM-ALBUTEROL 3 ML NEB INHALATION SCH (08:24)
[2019-09-01] MEDS: BUDESONIDE 1 MG/2 ML NEBU INHALATION SCH (08:24)
[2019-09-01] MEDS ORDERED: predniSONE 20 MG TAB PO SCH (09:00)
[2019-09-01 09:44] VITALS: BP 120/75; PULSE 75
--- NOTE | 2019-09-01 15:30 | P.PN ---
Subjective Progress Note Date: 08/31/19 This is a 59-year-old male one of Dr. Zamora with a previous medical history significant for mild persistent asthma, hypertension and hypertensive cardio vascular disease, hyperlipidemia, psoriatic arthritis, morbid obesity with sleep apnea currently has no CPAP. Patient states that he started feeling cold symptoms about a week ago but yesterday became significantly worse. He denies any fever or chills. He does not have home oxygen. He was using his nebulizer without much improvement. He complains of a dry cough. He has not seen Dr. PATIENCE Griffith in some time. He also complains of tightness in his chest. Patient presented to [facility] emergency center for evaluation. Patient was afebrile, heart rate in the 1 teens, blood pressure 162/94, pulse ox 92% on room air. WBC 10.7, hemoglobin 16, electrolytes and liver function tests within normal limits, creatinine 0.99, proBNP 14, troponin negative. Chest x-ray reveals focal opacities peripheral right lung base bandli ke appearance probable atelectasis. Some patchy retrocardiac atelectasis versus early infiltrate. Patient has been started on azithromycin and ceftriaxone and consult requested with Dr. PATIENCE Griffith. 08/30: Patient states he is feeling better today. 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 He has had a bowel movement this morning. He does continue to have some cough. Lung sounds are improving. Solu-Medrol will be decreased to 40 mg every 8 hours. Pulmonary is on consult. 08/31: Patient states that his breathing status is improved. He is requesting that a nebulizer be arranged for home. He is afebrile, blood pressure 177/70, pulse ox 93% on 2 L, heart rate 75. Patient was prepared for discharge home later in the afternoon he was complaining of dizziness when he lay down. He also was noted to have orthostatic changes. Due to edema, no IV fluids were provided. Patient was given 1 dose of meclizine. Patient will be monitored overnight and plan for discharge home. Patient is followed by Dr. PATIENCE Griffith. Review of Systems Constitutional: Denies chills, Reports fatigue, Reports malaise, Reports poor appetite, Reports weakness, Denies fever Ears, nose, mouth and throat: Denies dysphagia, Denies nasal congestion, Denies nasal discharge, reports vertigo Cardiovascular: Reports shortness of breath, Denies chest pain, Denies syncope Respiratory: Reports cough, Reports dyspnea, Reports wheezing, Denies cough with sputum, Denies excessive sputum, Denies hemoptysis, Denies home oxygen Gastrointestinal: Denies abdominal pain, Denies diarrhea, Denies loss of appetite, Denies nausea, Denies vomiting Genitourinary: Denies dysuria, Denies urinary retention Musculoskeletal: Denies frequent falls, Denies gait dysfunction, Denies muscle weakness, Denies myalgias Integumentary: Denies pruritus, Denies rash, Denies wounds Neurological: Denies change in mentation, Denies change in speech, Denies gait dysfunction, Denies numbness, Denies weakness Psychiatric: Denies anxiety, Denies depression Endocrine: Denies fatigue, Denies weight change Objective - Vital Signs Vital signs: Vital Signs Temp 97.8 F 08/31/19 08:09 Pulse 84 08/31/19 12:07 Resp 16 08/31/19 08:09 BP 177/70 08/31/19 08:09 Pulse Ox 93 L 08/31/19 08:09 Intake & Output 08/30/19 08/31/19 08/31/19 18:59 06:59 18:59 Intake Total 0655 825 2422 Balance 3731 504 0464 Intake: Intake, IV Titration 150 200 Amount Sodium Chloride 0.9% 1, 150 200 000 ml @ 100 mls/hr IV . Q10H [facility] Rx#:[id number] Oral 5060 962 1281 Other: Voiding Method Toilet Toilet Toilet # Voids 1 1 1 - Exam General appearance: No distress, morbidly obese - EENT Eyes: anicteric sclerae, EOMI, PERRLA, no ptosis, no scleral icterus, normal appearance ENT: hearing grossly normal, NA/AT, normal oropharynx, no thrush Ears: bilateral: normal - Neck Neck: no lymphadenopathy, normal ROM, no rigidity, no stridor, no thyromegaly Carotids: bilateral: upstroke normal - Respiratory Respiratory: bilateral: diminished, negative: dullness, rales, rhonchi, prolonged inspiration - Cardiovascular Rhythm: regular Heart sounds: normal: S1, S2 Abnormal Heart Sounds: no systolic murmur, no rub, no S3 Gallop, no S4 Gallop, no click 1+ lower extremity edema - Gastrointestinal General gastrointestinal: normal bowel sounds, soft, no splenomegaly, no tenderness, no umbilical hernia, no ventral hernia - Integumentary Integumentary: normal, normal turgor - Neurologic Neurologic: CNII-XII intact - Musculoskeletal Musculoskeletal: gait normal - Psychiatric Psychiatric: A&O x's 3, appropriate affect, intact judgment & insight - Labs CBC & Chem 7: 08/31/19 07:08 08/31/19 07:08 Labs: Abnormal Lab Results - Last 24 Hours (Table) 08/30/19 08/30/19 08/31/19 Range/Units 16:46 20:20 06:52 WBC (3.8-10.6) k/uL Glucose (74-99) mg/dL POC Glucose (mg/dL) 128 H 203 H 127 H (75-99) mg/dL 08/31/19 08/31/19 08/31/19 Range/Units 07:08 07:08 11:43 WBC 14.4 H (3.8-10.6) k/uL Glucose 139 H (74-99) mg/dL POC Glucose (mg/dL) 135 H (75-99) mg/dL 08/31/19 Range/Units 13:35 WBC (3.8-10.6) k/uL Glucose (74-99) mg/dL POC Glucose (mg/dL) 167 H (75-99) mg/dL Microbiology - Last 24 Hours (Table) 08/28/19 23:21 Blood Culture - Preliminary Blood No Growth after 48 hours Assessment and Plan Plan: 1. Acute respiratory insufficiency due to right-sided pneumonia and acute asthma exacerbation. Start Solu-Medrol decreased to 40 mg IV every 8 hours, DuoNeb 3 mg nebulization 4 times every day, Pulmicort 1 mg nebulization twice every day, Zithromax 500 mg orally once every day, Pulmicort 1 mg twice daily, continue Singulair 10 mg at bedtime, pulmonary consultation. 2. Mild persistent asthma. Continue treatment as in paragraph #1. 3. Hypertension and hypertensive cardiovascular disease. Continue patient on lisinopril 20 mg orally once every day. 4. Hyperlipidemia. Low-cholesterol diet. 5. Osteoarthritis, generalized. 6. 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 Continue patient on sliding scale insulin. Continue metformin 500 mg orally twice every day. Became before each meal and at bedtime. 7. Morbid obesity with obstructive sleep apnea currently has no CPAP. 8. DVT prophylaxis. Lovenox subcu 9. GI prophylaxis. Continue Protonix 40 mg orally once every day. 10. Dizziness with orthostatic hypotension. One dose of meclizine given. Hold IV fluids due to lower extremity edema. CODE STATUS: Full code Discharge plan: Home in the next 24 hours. Impression and plan of care have been directed as dictated by the signing physician. Kiley Daiz nurse practitioner acting as scribe for signing physician.
--- NOTE | 2019-09-01 15:32 | P.DS ---
Providers Date of admission: 08/28/19 23:00 Expected date of discharge: 09/01/19 Attending physician: Cristi Holland Consults: 08/29/19 14:16 Consult Physician Routine Consulting Provider: Riki Griffith Consult Reason/Comments: Right-sided pneumonia, asthma Do you want consulting provider notified?: Yes Primary care physician: Marco Zamora [facility] Course: This is a 59-year-old male one of Dr. Zamora with a previous medical history significant for mild persistent asthma, hypertension and hypertensive cardio vascular disease, hyperlipidemia, psoriatic arthritis, morbid obesity with sleep apnea currently has no CPAP. Patient states that he started feeling cold symptoms about a week ago but yesterday became significantly worse. He denies any fever or chills. He does not have home oxygen. He was using his nebulizer without much improvement. He complains of a dry cough. He has not seen Dr. PATIENCE Griffith in some time. He also complains of tightness in his chest. Patient presented to [facility] emergency center for evaluation. Patient was afebrile, heart rate in the 1 teens, blood pressure 162/94, pulse ox 92% on room air. WBC 10.7, hemoglobin 16, electrolytes and liver function tests within normal limits, creatinine 0.99, proBNP 14, troponin negative. Chest x-ray reveals focal opacities peripheral right lung base bandlike appearance probable atelectasis. Some patchy retrocardiac atelectasis versus early infiltrate. Patient has been started on azithromycin and ceftriaxone and consult requested with Dr. PATIENCE Griffith. 08/30: Patient states he is feeling better today. 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 He has had a bowel movement this morning. He does continue to have some cough. Lung sounds are improving. Solu-Medrol will be decreased to 40 mg every 8 hours. Pulmonary is on consult. 08/31: Patient states that his breathing status is improved. He is requesting that a nebulizer be arranged for home. He is afebrile, blood pressure 177/70, pulse ox 93% on 2 L, heart rate 75. Patient was prepared for discharge home later in the afternoon he was complaining of dizziness when he lay down. He also was noted to have orthostatic changes. Due to edema, no IV fluids were provided. Patient was given 1 dose of meclizine. Patient will be monitored overnight and plan for discharge home. Patient is followed by Dr. PATIENCE Griffith. 09/01: Patient has had intermittent decrease in his blood pressure and lisinopril will be cut in half at discharge. Otherwise, breathing status is stable. cafe or restaurant manager has worked with him regarding nebulizer but patient is able to obtain one for a cheaper sin on [employer]. Patient has been afebrile, heart rate 74, blood pressure 120/75, pulse ox 97% on 2 L nasal cannula. Discharge diagnoses: 1. Acute respiratory insufficiency due to right-sided pneumonia and acute asthma exacerbation. 2. Mild persistent asthma. 3. Hypertension and hypertensive cardiovascular disease. 4. Hyperlipidemia. 5. Osteoarthritis, generalized. 6. 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 7. Morbid obesity with obstructive sleep apnea currently has no CPAP. 8. Dizziness with orthostatic hypotension Discharge plan: Home Impression and plan of care have been directed as dictated by the signing physician. Kiley Diaz nurse practitioner acting as scribe for signing physician. Patient Condition at Discharge: Good Plan - Discharge Summary Discharge Rx Participant: Yes New Discharge Prescriptions: New Ipratropium-Albuterol Nebulize [Duoneb 0.5 mg-3 mg/3 ml Soln] 3 ml INHALATION RT-QID #120 ampul.neb predniSONE 0 mg PO DIRECTED #30 tab Pantoprazole [Protonix] 40 mg PO AC-BRKFST tablet. Budesonide [Pulmicort] 1 mg INHALATION RT-BID #60 nebu Azithromycin [Zithromax] 500 mg PO HS #3 tab Lisinopril [Prinivil] 10 mg PO 1800 #30 tab Continue Montelukast Sodium [Singulair] 10 mg PO HS Albuterol Sulfate [Proair Hfa] 2 puff INHALATION RT-QID PRN PRN Reason: Shortness Of Breath Discontinued Albuterol Nebulized [Ventolin Nebulized] 2.5 mg INHALATION RT-QID PRN PRN Reason: Shortness Of Breath Lisinopril 20 mg PO DAILY@1800 Discharge Medication List Albuterol Sulfate [Proair Hfa] 2 puff INHALATION RT-QID PRN 05/18/18 [History] Montelukast Sodium [Singulair] 10 mg PO HS 05/18/18 [History] Azithromycin [Zithromax] 500 mg PO HS #3 tab 08/31/19 [Rx] Budesonide [Pulmicort] 1 mg INHALATION RT-BID #60 nebu 08/31/19 [Rx] Ipratropium-Albuterol Nebulize [Duoneb 0.5 mg-3 mg/3 ml Soln] 3 ml INHALATION RT-QID #120 ampul.neb 08/31/19 [Rx] Pantoprazole [Protonix] 40 mg PO AC-BRKFST tablet. 08/31/19 [Rx] predniSONE 0 mg PO DIRECTED #30 tab 08/31/19 [Rx] Lisinopril [Prinivil] 10 mg PO 1800 #30 tab 09/01/19 [Rx] Follow up Appointment(s)/Referral(s): Marco Zamora MD [Primary Care Provider] - 1 Week (office not answering Please call to make appointment) Riki Griffith MD [STAFF PHYSICIAN] - 09/07/19 2:15 pm (Vanessa Harrell) Patient Instructions/Handouts: COPD (Chronic Obstructive Pulmonary Disease) (DC), Pneumonia (DC) Discharge Disposition: HOME SELF-CARE
== END 2019-09-01 11:47 | disposition home or self-care (01) | DRG 190 ==
LOC: EC 19:56 → 4SSUR 23:00
PROVIDERS: ADMIT Internal Medicine; ATTEND Internal Medicine
DX: J44.0 Chronic obstructive pulmonary disease with (acute) lower respiratory infection (principal); J18.9 Pneumonia, unspecified organism; J45.31 Mild persistent asthma with (acute) exacerbation; J98.11 Atelectasis; Z68.42 Body mass index [BMI] 45.0-49.9, adult; J44.1 Chronic obstructive pulmonary disease with (acute) exacerbation; E11.65 Type 2 diabetes mellitus with hyperglycemia; E66.01 Morbid (severe) obesity due to excess calories; E78.5 Hyperlipidemia, unspecified; G47.33 Obstructive sleep apnea (adult) (pediatric); I11.9 Hypertensive heart disease without heart failure; I95.1 Orthostatic hypotension; L40.50 Arthropathic psoriasis, unspecified; M17.11 Unilateral primary osteoarthritis, right knee; R09.02 Hypoxemia; T38.0X5A Adverse effect of glucocorticoids and synthetic analogues, initial encounter; Z79.84 Long term (current) use of oral hypoglycemic drugs; Z79.899 Other long term (current) drug therapy; Z80.41 Family history of malignant neoplasm of ovary; Z87.891 Personal history of nicotine dependence
CPT/HCPCS: 36415; 71045; 71046; 80048; 80053; 83036; 83735; 83880; 84484; 85025; 85027; 85610; 85730; 87040; 87070; 87205; 93005; 94640; 94644; 96365; 96366; 96367; 96375; 99291

== ENCOUNTER 2019-10-06 08:30 | Observation (INO) | payer BC ==
[2019-10-06] MEDS ORDERED: ASPIRIN 81 MG PO STA ×2 (08:56→09:26)
[2019-10-06] MEDS ORDERED: NITROGLYCERIN SL TABS 0.4 MG TAB SUBLINGUAL STA ×3 (08:56)
--- NOTE | 2019-10-06 09:00 | ED ---
General Adult HPI - General Chief complaint: Shortness of Breath Stated complaint: Sob Time Seen by Provider: 10/06/19 08:32 Source: patient, EMS, RN notes reviewed Mode of arrival: EMS Limitations: no limitations - History of Present Illness Initial comments: Patient is a pleasant 59-year-old male presenting to the emergency Department with chest discomfort and shortness of breath. Onset of symptoms was prior to arrival. Patient felt numbness in his chest and shortness of breath. Dyspnea has near resolved following a nebulizer treatment. Discomfort in the chest feels more like tightness or heaviness now. Discomfort is moderate. No diaphoresis or nausea. No history of similar symptoms previously. No calf pain. No radiation. - Related Data Home Medications Medication Instructions Recorded Confirmed Albuterol Sulfate [Proair Hfa] 2 puff INHALATION RT-QID PRN 05/18/18 08/28/19 Montelukast Sodium [Singulair] 10 mg PO HS 05/18/18 08/28/19 Previous Rx's Medication Instructions Recorded Azithromycin [Zithromax] 500 mg PO HS #3 tab 08/31/19 Budesonide [Pulmicort] 1 mg INHALATION RT-BID #60 nebu 08/31/19 Ipratropium-Albuterol Nebulize 3 ml INHALATION RT-QID #120 08/31/19 [Duoneb 0.5 mg-3 mg/3 ml Soln] ampul.neb Pantoprazole [Protonix] 40 mg PO AC-BRKFST tablet. 08/31/19 predniSONE 0 mg PO DIRECTED #30 tab 08/31/19 Lisinopril [Prinivil] 10 mg PO 1800 #30 tab 09/01/19 Allergies Allergy/AdvReac Type Severity Reaction Status Date / Time No Known Allergies Allergy Verified 10/06/19 08:34 Review of Systems ROS Statement: Those systems with pertinent positive or pertinent negative responses have been documented in the HPI. ROS Other: All systems not noted in ROS Statement are negative. Constitutional: Denies: fever Eyes: Denies: eye pain ENT: Denies: ear pain Respiratory: Reports: as per HPI, dyspnea. Denies: cough Cardiovascular: Reports: as per HPI Endocrine: Denies: fatigue Gastrointestinal: Denies: abdominal pain Genitourinary: Denies: urgency Musculoskeletal: Denies: back pain Skin: Denies: rash Neurological: Denies: weakness Past Medical History Past Medical History: Asthma, Diabetes Mellitus, Hyperlipidemia, Hypertension, Osteoarthritis (OA) Additional Past Medical History / Comment(s): Persistent asthma, NIDDM II- arthritis R knee, current L ankle sprain History of Any Multi-Drug Resistant Organisms: None Reported Past Surgical History: Hernia Repair Additional Past Surgical History / Comment(s): Umbilical hernia repair Past Anesthesia/Blood Transfusion Reactions: No Reported Reaction, Motion Sickness Past Psychological History: No Psychological Hx Reported Smoking Status: Former smoker Past Alcohol Use History: None Reported Past Drug Use History: None Reported - Past Family History Mother History Unknown: Yes Family Medical History: Cancer Additional Family Medical History / Comment(s): Mother of ovarian cancer at the age of 78yrs. Father History Unknown: Yes Family Medical History: GI Bleed Additional Family Medical History / Comment(s): Father around age 50 from a bleeding ulcer. Brother(s) Family Medical History: No Reported History Additional Family Medical History / Comment(s): The patient has 2 brothers and one from pneumonia at age 59, 1 is alive with history of bariatric surgery. Sister(s) Family Medical History: No Reported History Additional Family Medical History / Comment(s): Patient has 2 sisters and one has history of gallbladder disease. Daughter(s) Family Medical History: Unable to Obtain Additional Family Medical History / Comment(s): Patient has one daughter with no major medical problems. Son(s) Additional Family Medical History / Comment(s): Patient has 2 sons and one has hypertension. General Exam Limitations: no limitations General appearance: alert, in no apparent distress, obese Head exam: Present: normocephalic Eye exam: Present: normal appearance, PERRL ENT exam: Present: normal oropharynx Neck exam: Present: normal inspection Respiratory exam: Present: normal lung sounds bilaterally. Absent: chest wall tenderness Cardiovascular Exam: Present: regular rate, normal rhythm Expanded Peripheral pulses: 2+: Radial (R), Radial (L), Dorsalis Pedis (R), Dorsalis Pedis (L) GI/Abdominal exam: Present: soft. Absent: tenderness Extremities exam: Present: normal inspection. Absent: pedal edema, calf tenderness Back exam: Present: normal inspection Neurological exam: Present: alert Psychiatric exam: Present: normal affect, normal mood Skin exam: Present: normal color Course Vital Signs 10/06/19 10/06/19 08:31 09:25 Temperature 99.1 F Pulse Rate 99 98 Respiratory 18 18 Rate Blood Pressure 150/105 182/103 O2 Sat by Pulse 96 96 Oximetry EKG Findings - EKG Comments: EKG Findings:: Normal sinus rhythm 97. [place] 158. QRS 104. QT 348. QTC 441. Normal axis. Normal QRS. No acute ST change. Medical Decision Making - Medical Decision Making Patient reevaluated and resting comfortably in bed, symptom-free at this time. Patient updated on results and plan. Case was discussed in detail with Dr. Song, who will admit For Dr. Lane. She does request echo and subcu heparin. - Lab Data Result diagrams: 10/06/19 08:37 10/06/19 08:37 Lab Results 10/06/19 10/06/19 10/06/19 Range/Units 08:37 08:37 08:37 WBC 8.8 (3.8-10.6) k/uL RBC 5.10 (4.30-5.90) m/uL Hgb 16.0 (13.0-17.5) gm/dL Hct 47.7 (39.0-53.0) % MCV 93.6 (80.0-100.0) fL MCH 31.4 (25.0-35.0) pg MCHC 33.6 (31.0-37.0) g/dL RDW 13.1 (11.5-15.5) % Plt Count 315 (150-450) k/uL Neutrophils % 53 % Lymphocytes % 30 % Monocytes % 7 % Eosinophils % 4 % Basophils % 3 % Neutrophils # 4.7 (1.3-7.7) k/uL Lymphocytes # 2.7 (1.0-4.8) k/uL Monocytes # 0.6 (0-1.0) k/uL Eosinophils # 0.3 (0-0.7) k/uL Basophils # 0.2 (0-0.2) k/uL PT 9.4 (9.0-12.0) sec INR 0.9 (<1.2) APTT 23.1 (22.0-30.0) sec D-Dimer 0.52 (<0.60) mg/L FEU Sodium 136 L (137-145) mmol/L Potassium 4.1 (3.5-5.1) mmol/L Chloride 106 (98-107) mmol/L Carbon Dioxide 23 (22-30) mmol/L Anion Gap 7 mmol/L BUN 19 (9-20) mg/dL Creatinine 0.87 (0.66-1.25) mg/dL Est GFR (CKD-EPI)AfAm >90 (>60 ml/min/1.73 sqM) Est GFR (CKD-EPI)NonAf >90 (>60 ml/min/1.73 sqM) Glucose 127 H (74-99) mg/dL Calcium 8.8 (8.4-10.2) mg/dL Magnesium 2.1 (1.6-2.3) mg/dL Total Bilirubin 0.6 (0.2-1.3) mg/dL AST 28 (17-59) U/L ALT 16 (4-49) U/L Alkaline Phosphatase 61 (38-126) U/L Troponin I (0.000-0.034) ng/mL NT-Pro-B Natriuret Pep pg/mL Total Protein 7.2 (6.3-8.2) g/dL Albumin 4.1 (3.5-5.0) g/dL 10/06/19 10/06/19 Range/Units 08:37 08:37 WBC (3.8-10.6) k/uL RBC (4.30-5.90) m/uL Hgb (13.0-17.5) gm/dL Hct (39.0-53.0) % MCV (80.0-100.0) fL MCH (25.0-35.0) pg MCHC (31.0-37.0) g/dL RDW (11.5-15.5) % Plt Count (150-450) k/uL Neutrophils % % Lymphocytes % % Monocytes % % Eosinophils % % Basophils % % Neutrophils # (1.3-7.7) k/uL Lymphocytes # (1.0-4.8) k/uL Monocytes # (0-1.0) k/uL Eosinophils # (0-0.7) k/uL Basophils # (0-0.2) k/uL PT (9.0-12.0) sec INR (<1.2) APTT (22.0-30.0) sec D-Dimer (<0.60) mg/L FEU Sodium (137-145) mmol/L Potassium (3.5-5.1) mmol/L Chloride (98-107) mmol/L Carbon Dioxide (22-30) mmol/L Anion Gap mmol/L BUN (9-20) mg/dL Creatinine (0.66-1.25) mg/dL Est GFR (CKD-EPI)AfAm (>60 ml/min/1.73 sqM) Est GFR (CKD-EPI)NonAf (>60 ml/min/1.73 sqM) Glucose (74-99) mg/dL Calcium (8.4-10.2) mg/dL Magnesium (1.6-2.3) mg/dL Total Bilirubin (0.2-1.3) mg/dL AST (17-59) U/L ALT (4-49) U/L Alkaline Phosphatase (38-126) U/L Troponin I <0.012 (0.000-0.034) ng/mL NT-Pro-B Natriuret Pep 19 pg/mL Total Protein (6.3-8.2) g/dL Albumin (3.5-5.0) g/dL - Radiology Data Radiology results: image reviewed (Chest x-ray shows no acute process) Disposition Clinical Impression: Chest pain Disposition: ADMITTED IP TO THIS HOSP Is patient prescribed a controlled substance at d/c from ED?: No Referrals: Roger Lane MD [Primary Care Provider] - 1-2 days Decision Time: 10:33
[2019-10-06 09:14] LABS: Basophils # (A) 0.2 k/uL (0-0.2); Basophils % (A) 3 %; Eosinophils # (A) 0.3 k/uL (0-0.7); Eosinophils % (A) 4 %; HCT 47.7 % (39.0-53.0); Lymphocytes # (A) 2.7 k/uL (1.0-4.8); Lymphocytes % (A) 30 %; MCH 31.4 pg (25.0-35.0); MCHC 33.6 g/dL (31.0-37.0); MCV 93.6 fL (80.0-100.0); Mean Platelet Volume 6.6; Monocytes # (A) 0.6 k/uL (0-1.0); Monocytes % (A) 7 %; Neutrophils # (A) 4.7 k/uL (1.3-7.7); Neutrophils % (A) 53 %; Platelet Count 315 k/uL (150-450); RDW 13.1 % (11.5-15.5); WBC 8.8 k/uL (3.8-10.6)
--- NOTE | 2019-10-06 09:26 | XR ---
EXAMINATION TYPE: XR chest 2V DATE OF EXAM: 10/06/2019 COMPARISON: 08/29/2019 HISTORY: Chest pain TECHNIQUE: Frontal and lateral views of the chest are obtained. FINDINGS: Resolved bandlike opacity seen on the prior exam. There is no focal air space opacity, pleu ral effusion, or pneumothorax seen. Blunting of the diaphragms on the lateral view that suggests und erlying COPD. The cardiac silhouette size is within normal limits. The osseous structures are intac t. IMPRESSION: No acute cardiopulmonary process. Resolved right basilar bandlike opacity seen on the ex am of 08/29/2019.
[2019-10-06 09:37] LABS: D-Dimer 0.52 mg/L FEU (<0.60); INR 0.9 (<1.2); Partial Thromboplastin Time 23.1 sec (22.0-30.0); Prothrombin Time 9.4 sec (9.0-12.0)
[2019-10-06 09:40] LABS: ALT 16 U/L (4-49); AST 28 U/L (17-59); African American GFR (CKD) >90 (>60 ml/min/1.73 sqM); Albumin 4.1 g/dL (3.5-5.0); Alkaline Phosphatase 61 U/L (38-126); Anion Gap 7 mmol/L; Blood Urea Nitrogen 19 mg/dL (9-20); Calcium 8.8 mg/dL (8.4-10.2); Carbon Dioxide 23 mmol/L (22-30); Chloride 106 mmol/L (98-107); Glucose 127 mg/dL (74-99); Magnesium 2.1 mg/dL (1.6-2.3); Non-African American GFR(CKD) >90 (>60 ml/min/1.73 sqM); Potassium 4.1 mmol/L (3.5-5.1); Sodium 136 mmol/L (137-145); Total Bilirubin 0.6 mg/dL (0.2-1.3); Total Protein 7.2 g/dL (6.3-8.2)
[2019-10-06] MEDS ORDERED: NITROGLYCERIN SL TABS 0.4 MG TAB SUBLINGUAL PRN (10:34)
--- NOTE | 2019-10-06 12:29 | ECHOF ---
Referral Reason:cp MEASUREMENTS -------- HEIGHT: 175.3 cm WEIGHT: 145.1 kg BP: RVIDd: 3.8 cm (< 3.3) IVSd: 1.3 cm (0.6 - 1.1) LVIDd: 4.3 cm (3.9 - 5.3) LVPWd: 1.7 cm (0.6 - 1.1) IVSs: 1.9 cm LVIDs: 2.6 cm LVPWs: 2.1 cm LAESV Index (A-L): 20.54 ml/m Ao Diam: 3.1 cm (2.0 - 3.7) AV Cusp: 1.9 cm (1.5 - 2.6) LA Diam: 3.5 cm (2.7 - 3.8) MV EXCURSION: 22.907 mm (> 18.000) MV EF SLOPE: 102 mm/s (70 - 150) EPSS: 0.2 cm MV E Rian: 0.53 m/s MV DecT: 164 ms MV A Rian: 0.69 m/s MV E/A Ratio: 0.78 RAP: 5.00 mmHg RVSP: 21.98 mmHg FINDINGS -------- Sinus rhythm. This was a technically difficult study with suboptimal apical views. Morbid Obesity The left ventricular size is normal. There is mild concentric left ventricular hypertrophy. Overa ll left ventricular systolic function is normal with, an EF between 55 - 60 %. The diastolic fillin g pattern is normal for the age of the patient 8.33. The right ventricle is mildly enlarged. Normal LA size by volume 22+/-6 ml/m2. The right atrial size is normal. 1.5mg of Definity was utilized for enhancement of images Interatrial and interventricular septum intact. The aortic valve was not well visualized. There is no evidence of aortic regurgitation. There is no evidence of aortic stenosis. There is trace to mild mitral regurgitation. Mild tricuspid regurgitation present. There is no evidence of pulmonary hypertension. The right v entricular systolic pressure, as measured by Doppler, is 21.98mmHg. There is no pulmonic regurgitation present. The aortic root size is normal. IVC Not well visulized. There is no pericardial effusion. CONCLUSIONS -------- 1. Sinus rhythm. 2. This was a technically difficult study with suboptimal apical views. 3. Morbid Obesity 4. The left ventricular size is normal. 5. There is mild concentric left ventricular hypertrophy. 6. Overall left ventricular systolic function is normal with, an EF between 55 - 60 %. 7. The diastolic filling pattern is normal for the age of the patient 8.33 8. The right ventricle is mildly enlarged. 9. Normal LA size by volume 22+/-6 ml/m2. 10. The right atrial size is normal. 11. 1.5mg of Definity was utilized for enhancement of images 12. Interatrial and interventricular septum intact. 13. The aortic valve was not well visualized. 14. There is no evidence of aortic regurgitation. 15. There is no evidence of aortic stenosis. 16. There is trace to mild mitral regurgitation. 17. Mild tricuspid regurgitation present. 18. There is no evidence of pulmonary hypertension. 19. The right ventricular systolic pressure, as measured by Doppler, is 21.98mmHg. 20. There is no pulmonic regurgitation present. 21. The aortic root size is normal. 22. IVC Not well visulized. 23. There is no pericardial effusion. ENGINE ROOM OPERATOR: Dora Lara RDCS
[2019-10-06] MEDS ORDERED: ACETAMINOPHEN TAB 325 MG TAB PO PRN (12:56)
[2019-10-06] MEDS ORDERED: LISINOPRIL 10 MG TAB PO SCH ×3 (13:45→18:00)
--- NOTE | 2019-10-06 13:49 | P.HPIM ---
History of Present Illness H&P Date: 10/06/19 Chief Complaint: Chest pressure This is a 59-year-old male one of Dr. Noah Bustillos/P Nacho with a previous medical history significant for mild persistent asthma, hypertension and hypertensive cardio vascular disease, hyperlipidemia, psoriatic arthritis, morbid obesity hypoventilation syndrome, and diagnosed to have sleep apnea, and is being worked up for CPAP studies was recently admitted from our facility 08/29/2019 secondary to pneumonia, and was discharged with antibiotic and is on nebulizes. Patient did not require any home O2, patient comes in to emergency room secondary to chest pressure that happened while patient was getting into the shower, patient did not have any chest pain or stabbing pain, no radiation of pain, chest pressures located in the anterior precordial region, no relation to the gallbladder area, also has epigastric discomfort. Patient does not have any obstruction or diarrhea or vomiting, was seen in emergency room to evaluate for the cardiac chest pressure. Patient had no stress test for the past several years, no cardiac intervention including a heart cath. Imaging studies in the past included a negative gallbladder ultrasound in July 2019. No HIDA scan performed. Patient has cough, clear, no fever no chills, no leg pain, she he thinks that there is more leg swelling 1 to chest pressure occurred, no calf pain. Emergency room patient's EKG was unremarkable, troponin 1 is 0.012, LANDMAN proBNP is 19, creatinine is 0.87, sodium 136, blood pressure was 158-182 systolic, pulse ox 95-96% on 2 L nasal cannula, chest x-ray shows resolution of bandlike opacification from previous x-ray 08/29/2019, EKG shows normal sinus rhythm with no acute ST-T wave changes, normal EKG echocardiogram EF 55-6%, mild concentric LVH, no aortic stenosis, mild MR and mild TR, right ventricle systolic pressure of 21 d-dimer was normal at 0.52 Review of Systems Constitutional: Reports as per HPI, Denies anorexia, Denies chills, Denies chronic headaches, Denies chronic pain, Denies daytime sleepiness, Denies fatigue, Denies fever, Denies lethargy, Denies malaise, Denies night sweats, Denies poor appetite, Denies sweats, Denies weakness, Denies weight gain, Denies weight loss Ears, nose, mouth and throat: Reports as per HPI, Denies ant. neck pain, Denies bleeding gums, Denies dental pain, Denies dysphagia, Denies epistaxis, Denies headache, Denies hoarseness, Denies mouth pain, Denies nasal congestion, Denies nasal discharge, Denies neck fullness/pressure, Denies neck lump, Denies nose pain, Denies odynophagia, Denies post-nasal drip, Denies sinus pain, Denies sinus pressure, Denies swelling in mouth, Denies swelling in throat, Denies sore throat, Denies vertigo, Denies voice changes Cardiovascular: Reports chest pain, Reports dyspnea on exertion, Reports shortness of breath Respiratory: Reports as per HPI, Reports cough Gastrointestinal: Reports as per HPI, Denies abdominal pain, Denies belching, Denies bloating, Denies BRBPR, Denies change in bowel habits, Denies coffee ground emesis, Denies constipation, Denies diarrhea, Denies dyspepsia, Denies early satiety, Denies excessive gas, Denies heartburn, Denies hematemesis, Denies hematochezia, Denies indigestion, Denies jaundice, Denies lactose intolerance, Denies loss of appetite, Denies melena, Denies nausea, Denies vomiting Genitourinary: Reports as per HPI Musculoskeletal: Reports as per HPI, Denies arm numbness/tingling, Denies atrophy, Denies fractures, Denies frequent falls, Denies gait dysfunction, Denies hot joints, Denies leg numbness/tingling, Denies limitation of motion, Denies loss of height, Denies low back pain, Denies morning stiffness, Denies muscle cramps, Denies muscle weakness, Denies myalgias, Denies neck pain, Denies neck stiffness, Denies prior amputations, Denies redness of joints, Denies shooting arm pain, Denies shooting leg pain Integumentary: Reports as per HPI Neurological: Reports as per HPI, Denies aphasia, Denies ataxia, Denies balance difficulties, Denies burning pain, Denies change in mentation, Denies change in smell/taste, Denies change in speech, Denies confusion, Denies convulsions, Denies double vision, Denies gait dysfunction, Denies head injury, Denies headac hes, Denies hearing difficulties, Denies lack of coordination, Denies loss of vision, Denies memory loss, Denies migraines, Denies motor disturbance, Denies numbness, Denies paralysis, Denies paresthesias, Denies seizures, Denies sensory deficit, Denies spasticity, Denies syncope, Denies tic, Denies tingling, Denies transient paralysis, Denies tremors, Denies vertigo, Denies weakness, Denies visual changes Psychiatric: Reports as per HPI, Denies anhedonia, Denies anxiety, Denies anxiety attacks, Denies change in appetite, Denies change in libido, Denies change in sleep habits, Denies confusion, Denies depression, Denies difficulty concentrating, Denies disorientation, Denies hallucinations, Denies hopelessness, Denies hypersomnia, Denies insomnia, Denies irritability, Denies memory loss, Denies mood swings, Denies paranoia, Denies sadness/tearfulness, Denies sleep disturbances, Denies suicidal ideation Endocrine: Reports as per HPI, Reports recent glucocorticoid use Hematologic/Lymphatic: Reports as per HPI, Denies easy bleeding, Denies easy bruising, Denies lymphadenopathy, Denies lymphedema, Denies thrombophilia Allergic/Immunologic: Reports as per HPI, Reports wheezing, Denies allergic rhinitis, Denies anaphylaxis, Denies angioedema, Denies gluten intolerance, Denies persistent infections, Denies seasonal allergies, Denies urticaria Past Medical History Past Medical History: Asthma, Diabetes Mellitus, Hyperlipidemia, Hypertension, Osteoarthritis (OA) Additional Past Medical History / Comment(s): Persistent asthma, NIDDM II- arthritis R knee, current L ankle sprain History of Any Multi-Drug Resistant Organisms: None Reported Past Surgical History: Hernia Repair Additional Past Surgical History / Comment(s): Umbilical hernia repair Past Anesthesia/Blood Transfusion Reactions: No Reported Reaction, Motion Sickness Past Psychological History: No Psychological Hx Reported Smoking Status: Former smoker Past Alcohol Use History: None Reported Past Drug Use History: None Reported - Past Family History Mother History Unknown: Yes Family Medical History: Cancer Additional Family Medical History / Comment(s): Mother of ovarian cancer at the age of 78yrs. Father History Unknown: Yes Family Medical History: GI Bleed Additional Family Medical History / Comment(s): Father around age 50 from a bleeding ulcer. Brother(s) Family Medical History: No Reported History Additional Family Medical History / Comment(s): The patient has 2 brothers and one from pneumonia at age 59, 1 is alive with history of bariatric surgery. Sister(s) Family Medical History: No Reported History Additional Family Medical History / Comment(s): Patient has 2 sisters and one has history of gallbladder disease. Daughter(s) Family Medical History: Unable to Obtain Additional Family Medical History / Comment(s): Patient has one daughter with no major medical problems. Son(s) Additional Family Medical History / Comment(s): Patient has 2 sons and one has hypertension. Medications and Allergies Home Medications Medication Instructions Recorded Confirmed Type Albuterol Sulfate [Proair Hfa] 2 puff INHALATION RT-QID PRN 05/18/18 10/06/19 History Montelukast Sodium [Singulair] 10 mg PO HS 05/18/18 10/06/19 History Acetaminophen [Tylenol Arthritis] 650 mg PO TID PRN 10/06/19 10/06/19 History Albuterol Nebulized [Ventolin 2.5 mg INHALATION RT-Q6H PRN 10/06/19 10/06/19 His tory Nebulized] Lisinopril [Prinivil] 10 mg PO DAILY@1800 10/06/19 10/06/19 History Multivitamins, Thera [Multivitamin 1 tab PO DAILY 10/06/19 10/06/19 History (formulary)] Allergies Allergy/AdvReac Type Severity Reaction Status Date / Time No Known Allergies Allergy Verified 10/06/19 10:45 Physical Exam Vitals: Vital Signs Temp Pulse Resp BP Pulse Ox 10/06/19 13:12 98 F 87 18 174/102 96 10/06/19 11:44 89 18 158/92 95 10/06/19 10:45 90 18 156/90 96 10/06/19 10:00 89 18 159/87 96 10/06/19 09:25 98 18 182/103 96 10/06/19 08:31 99.1 F 99 18 150/105 96 Intake and Output 10/05/19 10/06/19 10/06/19 22:59 06:59 14:59 Other: Weight 145.15 kg - Constitutional General appearance: cooperative, morbidly obese - EENT Eyes: anicteric sclerae, EOMI, PERRLA, dentition normal, normal appearance ENT: NA/AT, normal oropharynx - Neck Neck: normal ROM - Respiratory Respiratory: bilateral: wheezing - Cardiovascular Rhythm: regular Abnormal Heart Sounds: no systolic murmur, no diastolic murmur, no rub, no S3 Gallop, no S4 Gallop, no click, no other - Gastrointestinal General gastrointestinal: normal bowel sounds, soft - Integumentary Integumentary: normal turgor - Neurologic Neurologic: CNII-XII intact - Musculoskeletal Musculoskeletal: gait normal, strength equal bilaterally Results CBC & Chem 7: 10/06/19 08:37 10/06/19 08:37 Labs: Abnormal Lab Results - Last 24 Hours (Table) 10/06/19 Range/Units 08:37 Sodium 136 L (137-145) mmol/L Glucose 127 H (74-99) mg/dL Laboratory Results WBC 8.8 k/uL (3.8-10.6) 10/06/19 08:37 RBC 5.10 m/uL (4.30-5.90) 10/06/19 08:37 Hgb 16.0 gm/dL (13.0-17.5) 10/06/19 08:37 Hct 47.7 % (39.0-53.0) 10/06/19 08:37 MCV 93.6 fL (80.0-100.0) 10/06/19 08:37 MCH 31.4 pg (25.0-35.0) 10/06/19 08:37 MCHC 33.6 g/dL (31.0-37.0) 10/06/19 08:37 RDW 13.1 % (11.5-15.5) 10/06/19 08:37 Plt Count 315 k/uL (150-450) 10/06/19 08:37 Neutrophils % 53 % 10/06/19 08:37 Lymphocytes % 30 % 10/06/19 08:37 Monocytes % 7 % 10/06/19 08:37 Eosinophils % 4 % 10/06/19 08:37 Basophils % 3 % 10/06/19 08:37 Neutrophils # 4.7 k/uL (1.3-7.7) 10/06/19 08:37 Lymphocytes # 2.7 k/uL (1.0-4.8) 10/06/19 08:37 Monocytes # 0.6 k/uL (0-1.0) 10/06/19 08:37 Eosinophils # 0.3 k/uL (0-0.7) 10/06/19 08:37 Basophils # 0.2 k/uL (0-0.2) 10/06/19 08:37 PT 9.4 sec (9.0-12.0) 10/06/19 08:37 INR 0.9 (<1.2) 10/06/19 08:37 APTT 23.1 sec (22.0-30.0) 10/06/19 08:37 D-Dimer 0.52 mg/L FEU (<0.60) 10/06/19 08:37 Sodium 136 mmol/L (137-145) L 10/06/19 08:37 Potassium 4.1 mmol/L (3.5-5.1) 10/06/19 08:37 Chloride 106 mmol/L (98-107) 10/06/19 08:37 Carbon Dioxide 23 mmol/L (22-30) 10/06/19 08:37 Anion Gap 7 mmol/L 10/06/19 08:37 BUN 19 mg/dL (9-20) 10/06/19 08:37 Creatinine 0.87 mg/dL (0.66-1.25) 10/06/19 08:37 Est GFR (CKD-EPI)AfAm >90 (>60 ml/min/1.73 sqM) 10/06/19 08:37 Est GFR (CKD-EPI)NonAf >90 (>60 ml/min/1.73 sqM) 10/06/19 08:37 Glucose 127 mg/dL (74-99) H 10/06/19 08:37 Calcium 8.8 mg/dL (8.4-10.2) 10/06/19 08:37 Magnesium 2.1 mg/dL (1.6-2.3) 10/06/19 08:37 Total Bilirubin 0.6 mg/dL (0.2-1.3) 10/06/19 08:37 AST 28 U/L (17-59) 10/06/19 08:37 ALT 16 U/L (4-49) 10/06/19 08:37 Alkaline Phosphatase 61 U/L (38-126) 10/06/19 08:37 Troponin I <0.012 ng/mL (0.000-0.034) 10/06/19 08:37 NT-Pro-B Natriuret Pep 19 pg/mL 10/06/19 08:37 Total Protein 7.2 g/dL (6.3-8.2) 10/06/19 08:37 Albumin 4.1 g/dL (3.5-5.0) 10/06/19 08:37 Thrombosis Risk Factor Assmnt - DVT/VTE Prophylaxis DVT/VTE Prophylaxis: Low risk, early ambulation encouraged - Choose All That Apply Each Factor Represents 1 point: Age 41-60 years, Obesity (BMI >25) Thrombosis Risk Factor Assessment Total Risk Factor Score: 2 Thrombosis Risk Factor Assessment Level: Low Risk Assessment and Plan Plan: 1. Acute chest pressure without any prior history of CAD documented in the past, atypical symptoms, however patient also has wheezing episodes today, with dry cough. Negative for d-dimer, negative normal levels for BNP, troponins 0.0 1, other cardio biomarkers is going to be done, his echocardiogram was reviewed, we'll going to obtain cardiac consultation, patient is on subcu heparin and when necessary sublingual nitro, aspirin, lipid panels. Last A1c was 6.4,, could be steroid induced gastritis, start on Protonix 40 mg IV, no plans for intervention to include EGD at this time unless more symptoms, lipase to be done, patient would need a stress echocardiogram or a Lexiscan stress test soon 2. Mild persistent asthma with exacerbation, steroid IV to be done with Solu- Medrol 60 every 6 hours, nebulized solution, patient is not on any asthma shots at Dr. Bustillos/Rikki Griffith's office, DuoNeb 3 mg nebulization 4 times every day, restart Pulmicort 0.5 mg twice daily, continue Singulair 10 mg at bedtime, pulmonary consultation S/P Nacho. Patient is not on any inhaled steroid treatments prior to admission, recently completed oral prednisone last August for for his last admission, no current plans for prednisone on discharge, we will use nebulized or inhaled steroids for discharge 3. Hypertension and hypertensive cardiovascular disease uncontrolled. increase patient on lisinopril 10 bid 4. Hyperlipidemia. Low-cholesterol diet. Not on statin, previous LDL in 2018 was 148, start Lipitor 40, check lipid panel 5. Osteoarthritis, generalized. 6. 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 A1c 6.4, August 2019, Continue patient on sliding scale insulin. Restart metformin 850 mg daily 7. Morbid obesity with obstructive sleep apnea currently has no CPAP however studies still needs to be initiated. 8. DVT prophylaxis. Lovenox subcu 9. GI prophylaxis. Continue Protonix 40 mg orally once every day. 10. Dizziness with orthostatic hypotension. One dose of meclizine given. Hold IV fluids due to lower extremity edema. CODE STATUS: Full code Discharge plan: Home in the next 24 -24 hhours. Patient was kept in as an observation
[2019-10-06] MEDS: IPRATROPIUM-ALBUTEROL 3 ML NEB INHALATION SCH ×2 (14:10→19:36)
--- NOTE | 2019-10-06 14:28 | P.CRDCN ---
History of Present Illness History of present illness: HISTORY OF PRESENTING ILLNESS This is a pleasant 59-year-old male past medical history significant for hypertension, hypothyroidism, asthma and morbid obesity. 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 We have been asked to see in consultation for chest pain. States he woke up middle of the night to use the restroom and he felt like his legs were heavy and swollen. As he was walking to the restroom he started to feel a pressure in his chest like a band wrapping around his upper torso. Also felt some associated shortness of breath. On arrival to the emergency department his shortness of breath had almost completely subsided following a nebulizer treatment. He still continues to have a faint expiratory wheeze noted throughout. He denies any ongoing chest tightness. Blood pressure has been quite uncontrolled since admission. On arrival was 150/105 repeat in the emergency department at the time of our evaluation was 160/108. He is not taking any of his daily medications. He underwent 2-D echocardiogram on this admission revealing preserved LV systolic function with ejection fraction 55- 60%. DIAGNOSTICS EKG reveals sinus mechanism with heart rate of [address] or T wave abnormalities noted. Chest xray negative for an acute cardiopulmonary process. Laboratory reviewed, CBC unremarkable, d-dimer 0.52, sodium 136, potassium 4.1, creatinine 0.87, magnesium 2.1, troponin negative 1, NT proBNP 19. Current cardiac medications include lisinopril 10 mg daily. This was recently decreased from 20 mg daily. Most recent stress test in May 2018 was negative for stress-induced ische archana. REVIEW OF SYSTEMS At the time of my exam: CONSTITUTIONAL: Denies fever or chills. CARDIOVASCULAR: Denies chest pain, shortness of breath, orthopnea, PND or palpitations. RESPIRATORY: Denies cough. GASTROINTESTINAL: Denies abdominal pain, diarrhea, constipation, nausea or vomiting. MUSCULOSKELETAL: Denies myalgias. NEUROLOGIC: Denies numbness, tingling or weakness. ENDOCRINE: Denies fatigue, weight change, polydipsia or polyurina. GENITOURINARY: Denies burning, hematuria or urgency with micturation. HEMATOLOGIC: Denies history of anemia or bleeding. PHYSICAL EXAMINATION Blood pressure 174/102 heart rate 90 afebrile and maintaining oxygen saturation on nasal cannula. CONSTITUTIONAL: No apparent distress. Morbidly obese. HEENT: Head is normocephalic. Pupils are equal, round. Sclerae anicteric. Mucous membranes of the mouth are moist. No JVD. No carotid bruit. CHEST EXAMINATION: Faint expiratory wheeze noted throughout. No rhonchi or rales. No chest wall tenderness is noted on palpation or with deep breathing. HEART EXAMINATION: Regular rate and rhythm. S1, S2 heard. No murmurs, gallops or rub. ABDOMEN: Soft, nontender. Positive bowel sounds. EXTREMITIES: 2+ peripheral pulses, no lower extremity edema and no calf tenderness. NEUROLOGIC EXAMINATION: Patient is awake, alert and oriented x3. ASSESSMENT Chest pain, atypical. Acute exacerbation of asthma Hypertensive urgency Morbid obesity, BMI 47 PLAN Increase lisinopril to 20 mg twice a day, give the first dose now. Initiate Lopressor 25 mg daily. Echocardiogram has been obtained and reviewed. No evidence of old motion abnormality. Continue to obtain serial cardiac enzymes to rule out an acute coronary event. Recommend aggressive blood pressure management. No plans for stress testing at this time. We will continue to follow make recommendations accordingly. Nurse Practitioner note has been reviewed, I agree with a documented findings and plan of care. Patient was seen and examined. Past Medical History Past Medical History: Asthma, Diabetes Mellitus, Hyperlipidemia, Hypertension, Osteoarthritis (OA) Additional Past Medical History / Comment(s): Persistent asthma, NIDDM II- arthritis R knee, current L ankle sprain History of Any Multi-Drug Resistant Organisms: None Reported Past Surgical History: Hernia Repair Additional Past Surgical History / Comment(s): Umbilical hernia repair Past Anesthesia/Blood Transfusion Reactions: No Reported Reaction, Motion Sickness Past Psychological History: No Psychological Hx Reported Smoking Status: Former smoker Past Alcohol Use History: None Reported Past Drug Use History: None Reported - Past Family History Mother History Unknown: Yes Family Medical History: Cancer Additional Family Medical History / Comment(s): Mother of ovarian cancer at the age of 78yrs. Father History Unknown: Yes Family Medical History: GI Bleed Additional Family Medical History / Comment(s): Father around age 50 from a bleeding ulcer. Brother(s) Family Medical History: No Reported History Additional Family Medical History / Comment(s): The patient has 2 brothers and one from pneumonia at age 59, 1 is alive with history of bariatric surgery. Sister(s) Family Medical History: No Reported History Additional Family Medical History / Comment(s): Patient has 2 sisters and one has history of gallbladder disease. Daughter(s) Family Medical History: Unable to Obtain Additional Family Medical History / Comment(s): Patient has one daughter with no major medical problems. Son(s) Additional Family Medical History / Comment(s): Patient has 2 sons and one has hypertension. Medications and Allergies Home Medications Medication Instructions Recorded Confirmed Type Albuterol Sulfate [Proair Hfa] 2 puff INHALATION RT-QID PRN 05/18/18 10/06/19 History Montelukast Sodium [Singulair] 10 mg PO HS 05/18/18 10/06/19 History Acetaminophen [Tylenol Arthritis] 650 mg PO TID PRN 10/06/19 10/06/19 History Albuterol Nebulized [Ventolin 2.5 mg INHALATION RT-Q6H PRN 10/06/19 10/06/19 History Nebulized] Lisinopril [Prinivil] 10 mg PO DAILY@1800 10/06/19 10/06/19 History Multivitamins, Thera [Multivitamin 1 tab PO DAILY 10/06/19 10/06/19 History (formulary)] Allergies Allergy/AdvReac Type Severity Reaction Status Date / Time No Known Allergies Allergy Verified 10/06/19 10:45 Physical Exam Vitals: Vital Signs Temp Pulse Resp BP Pulse Ox 10/06/19 14:11 90 10/06/19 13:12 98 F 87 18 174/102 96 10/06/19 11:44 89 18 158/92 95 10/06/19 10:45 90 18 156/90 96 10/06/19 10:00 89 18 159/87 96 10/06/19 09:25 98 18 182/103 96 10/06/19 08:31 99.1 F 99 18 150/105 96 Intake and Output 10/05/19 10/06/19 10/06/19 22:59 06:59 14:59 Other: Weight 145.15 kg Results 10/06/19 08:37 10/06/19 08:37 Cardiac Enzymes 10/06/19 10/06/19 Range/Units 08:37 08:37 AST 28 (17-59) U/L Troponin I <0.012 (0.000-0.034) ng/mL Coagulation 10/06/19 Range/Units 08:37 PT 9.4 (9.0-12.0) sec APTT 23.1 (22.0-30.0) sec CBC 10/06/19 Range/Units 08:37 WBC 8.8 (3.8-10.6) k/uL RBC 5.10 (4.30-5.90) m/uL Hgb 16.0 (13.0-17.5) gm/dL Hct 47.7 (39.0-53.0) % Plt Count 315 (150-450) k/uL Comprehensive Metabolic Panel 10/06/19 Range/Units 08:37 Sodium 136 L (137-145) mmol/L Potassium 4.1 (3.5-5.1) mmol/L Chloride 106 (98-107) mmol/L Carbon Dioxide 23 (22-30) mmol/L BUN 19 (9-20) mg/dL Creatinine 0.87 (0.66-1.25) mg/dL Glucose 127 H (74-99) mg/dL Calcium 8.8 (8.4-10.2) mg/dL AST 28 (17-59) U/L ALT 16 (4-49) U/L Alkaline Phosphatase 61 (38-126) U/L Total Protein 7.2 (6.3-8.2) g/dL Albumin 4.1 (3.5-5.0) g/dL Current Medications Generic Name Dose Route Start Last Admin Trade Name Freq PRN Reason Stop Dose Admin Acetaminophen 650 mg 10/06/19 12:56 Tylenol Tab PO TID PRN Pain Albuterol/Ipratropium 3 ml 10/06/19 13:00 10/06/19 14:10 Duoneb 0.5 Mg-3 Mg/3 Ml Soln INHALATION 3 ml RT-TID INGRID Administration Albuterol/Ipratropium 3 ml 10/06/19 12:55 Duoneb 0.5 Mg-3 Mg/3 Ml Soln INHALATION RT-QID PRN Shortness Of Breath Or Wheezing Aspirin 325 mg 10/07/19 09:00 Aspirin PO DAILY [facility] Atorvastatin Calcium 40 mg 10/06/19 14:00 Lipitor PO DAILY [facility] Budesonide 1 mg 10/06/19 20:00 Pulmicort INHALATION RT-BID [facility] Heparin Sodium (Porcine) 5,000 unit 10/06/19 12:00 Heparin SQ Q8H [facility] Lisinopril 10 mg 10/06/19 13:45 Zestril PO BID [facility] Metformin HCl 850 mg 10/07/19 07:30 Glucophage PO W/BRKFST [facility] Methylprednisolone Sodium Succinate 60 mg 10/06/19 13:00 Solu-Medrol IV Q6HR [facility] Montelukast Sodium 10 mg 10/06/19 21:00 Singulair PO HS [facility] Nitroglycerin 0.4 mg 10/06/19 10:34 Nitrostat SUBLINGUAL Q5M PRN Chest Pain Nitroglycerin 1 inch 10/06/19 12:00 Nitro-Bid Oint TOPICAL Q6HR [facility] Pantoprazole Sodium 40 mg 10/06/19 14:00 Protonix PO AC-BRKFST [facility] Sodium Chloride 10 ml 10/06/19 21:00 Saline Flush IV BID [facility] Intake and Output 10/05/19 10/06/19 10/06/19 22:59 06:59 14:59 Other: Weight 145.15 kg Patient Weight 10/07/19 06:59 Weight 145.15 kg 10/06/19 08:37 10/06/19 08:37
[2019-10-06] MEDS: NITROGLYCERIN OINT 1 INCH/GM PACKET TOPICAL SCH ×4 (14:47→22:58)
[2019-10-06] MEDS: METOPROLOL TARTRATE 25 MG TAB PO SCH (14:47)
[2019-10-06] MEDS: ATORVASTATIN 40 MG TAB PO SCH ×2 (14:47→14:48)
[2019-10-06] MEDS: PANTOPRAZOLE 40 MG TABLET PO SCH (14:47)
[2019-10-06] MEDS: HEPARIN SODIUM,PORCINE 5,000 UNIT/ML 1 ML VIAL SQ SCH ×2 (14:47→20:57)
[2019-10-06] MEDS: LISINOPRIL 20 MG TAB PO SCH (14:48)
[2019-10-06] MEDS: methylPREDNISolone SOD SUCCI 125 MG/2 ML VIAL IV SCH ×4 (14:54→23:34)
[2019-10-06 16:39] LABS: Glucose,Whole Blood 193 mg/dL (75-99)
[2019-10-06] MEDS: INSULIN ASPART (NovoLOG) 100 UNIT/ML VIAL SQ SCH ×2 (18:30→20:52)
[2019-10-06] MEDS: BUDESONIDE 1 MG/2 ML NEBU INHALATION SCH (19:36)
--- NOTE | 2019-10-06 20:35 | P.CNPUL ---
History of Present Illness Consult date: 10/06/19 Reason for consult: dyspnea, chest pain, COPD, obstructive sleep apnea Chief complaint: Pressure-like sensation bilaterally on the chest along with sob History of present illness: This is a 59-year-old morbidly obese male who sees tachycardic for primary care activity has a long-standing history of hypertension and hypertensive cardiovascular disease morbid obesity and possibly sleep apnea patient has a recent diagnosis of pneumonia, has been admitted into the hospital subsequently was discharged this morning he wakes up with shortness of breath and pressure- like sensation decided to come into the emergency department for further evaluation denies any fever or chills denies any pain like sensation his cardiac enzymes are normal BNP is normal oxygen saturation is good chest x-ray suggestive of some subsegmental atelectasis d-dimer is normal as well Review of Systems All systems: negative Past Medical History Past Medical History: Asthma, Hyperlipidemia, Hypertension, Osteoarthritis (OA) Additional Past Medical History / Comment(s): Persistent asthma, NIDDM II- arthritis R knee, L ankle sprain History of Any Multi-Drug Resistant Organisms: None Reported Past Surgical History: Hernia Repair Additional Past Surgical History / Comment(s): Umbilical hernia repair Past Anesthesia/Blood Transfusion Reactions: No Reported Reaction, Motion Sickness Smoking Status: Former smoker - Past Family History Mother History Unknown: Yes Family Medical History: Cancer Additional Family Medical History / Comment(s): Mother of ovarian cancer at the age of 78yrs. Father History Unknown: Yes Family Medical History: GI Bleed Additional Family Medical History / Comment(s): Father around age 50 from a bleeding ulcer. Brother(s) Family Medical History: No Reported History Additional Family Medical History / Comment(s): The patient has 2 brothers and one from pneumonia at age 59, 1 is alive with history of bariatric surgery. Sister(s) Family Medical History: No Reported History Additional Family Medical History / Comment(s): Patient has 2 sisters and one has history of gallbladder disease. Daughter(s) Family Medical History: Unable to Obtain Additional Family Medical History / Comment(s): Patient has one daughter with no major medical problems. Son(s) Additional Family Medical History / Comment(s): Patient has 2 sons and one has hypertension. Medications and Allergies Home Medications Medication Instructions Recorded Confirmed Type Albuterol Sulfate [Proair Hfa] 2 puff INHALATION RT-QID PRN 05/18/18 10/06/19 History Montelukast Sodium [Singulair] 10 mg PO HS 05/18/18 10/06/19 History Acetaminophen [Tylenol Arthritis] 650 mg PO TID PRN 10/06/19 10/06/19 History Albuterol Nebulized [Ventolin 2.5 mg INHALATION RT-Q6H PRN 10/06/19 10/06/19 History Nebulized] Lisinopril [Prinivil] 10 mg PO DAILY@1800 10/06/19 10/06/19 History Multivitamins, Thera [Multivitamin 1 tab PO DAILY 10/06/19 10/06/19 History (formulary)] Allergies Allergy/AdvReac Type Severity Reaction Status Date / Time No Known Allergies Allergy Verified 10/06/19 10:45 Physical Exam Vitals: Vital Signs Temp Pulse Pulse Pulse Resp BP BP 10/06/19 19:54 91 10/06/19 19:36 90 10/06/19 19:29 98.5 F 82 18 133/85 10/06/19 16:10 10/06/19 15:32 98.0 F 76 18 10/06/19 15:00 98.9 F 81 15 189/95 10/06/19 14:49 92 189/95 10/06/19 14:11 90 10/06/19 13:12 98 F 87 18 174/102 10/06/19 11:44 89 18 158/92 10/06/19 10:45 90 18 156/90 10/06/19 10:00 89 18 159/87 10/06/19 09:25 98 18 182/103 10/06/19 08:31 99.1 F 99 18 150/105 BP Pulse Ox 10/06/19 19:54 10/06/19 19:36 93 L 10/06/19 19:29 92 L 10/06/19 16:10 97 10/06/19 15:32 129/86 97 10/06/19 15:00 95 10/06/19 14:49 10/06/19 14:11 10/06/19 13:12 96 10/06/19 11:44 95 10/06/19 10:45 96 10/06/19 10:00 96 10/06/19 09:25 96 02/11/20 08:31 96 Intake and Output 10/06/19 10/06/19 10/06/19 06:59 14:59 22:59 Intake Total 236 Balance 236 Intake: Oral 236 Other: Weight 145.15 kg 145.15 kg - Constitutional General appearance: disheveled, morbidly obese, no acute distress - EENT Eyes: EOMI, PERRLA, poor dentition, normal appearance Ears: bilateral: normal - Neck Neck: normal ROM Carotids: bilateral: upstroke normal Thyroid: bilateral: normal size - Respiratory Respiratory: bilateral: CTA - Cardiovascular Rhythm: regular Heart sounds: normal: S1, S2 - Gastrointestinal General gastrointestinal: decreased bowel sounds, distended - Neurologic Neurologic: CNII-XII intact - Musculoskeletal Musculoskeletal: gait normal, generalized weakness, strength equal bilaterally - Psychiatric Psychiatric: A&O x's 3, appropriate affect, intact judgment & insight Results - Laboratory Findings CBC and BMP: 10/06/19 08:37 10/06/19 08:37 PT/INR, D-dimer PT 9.4 sec (9.0-12.0) 10/06/19 08:37 INR 0.9 (<1.2) 10/06/19 08:37 D-Dimer 0.52 mg/L FEU (<0.60) 10/06/19 08:37 Abnormal lab findings: Abnormal Labs 10/06/19 10/06/19 08:37 16:38 Sodium 136 L Glucose 127 H POC Glucose (mg/dL) 193 H - Diagnostic Findings Chest x-ray: report reviewed, image reviewed Assessment and Plan Assessment: Atypical chest pain Morbid obesity and likely sleep disorder breathing and sleep apnea Chronic intermittent asthma GERD Hypertension hypertensive cardiovascular disease Dyslipidemia Type 2 diabetes mellitus Right lower lobe subsegmental atelectasis resolving Plan: Agree with Protonix Sleep study as outpatient Observe clinical course closely If remains stable can be discharged from pulmonary standpoint in next 24-48 hours Time with Patient: Greater than 30
[2019-10-06 20:39] LABS: Glucose,Whole Blood 164 mg/dL (75-99)
[2019-10-06] MEDS: MONTELUKAST 10 MG TAB PO SCH (20:57)
[2019-10-07 01:12] LABS: Cholesterol 202 mg/dL (<200); HDL Cholesterol 41 mg/dL (40-60); LDL Cholesterol,Calculated 112 mg/dL (0-99); Triglycerides 243 mg/dL (<150)
[2019-10-07] MEDS: IPRATROPIUM-ALBUTEROL 3 ML NEB INHALATION PRN (03:05)
[2019-10-07] MEDS: HEPARIN SODIUM,PORCINE 5,000 UNIT/ML 1 ML VIAL SQ SCH ×3 (03:51→20:35)
[2019-10-07] MEDS: MONTELUKAST 10 MG TAB PO SCH (03:54)
[2019-10-07] MEDS: NITROGLYCERIN OINT 1 INCH/GM PACKET TOPICAL SCH (06:20)
[2019-10-07] MEDS: methylPREDNISolone SOD SUCCI 125 MG/2 ML VIAL IV SCH ×2 (06:34→12:23)
[2019-10-07 06:50] LABS: Glucose,Whole Blood 183 mg/dL (75-99)
[2019-10-07] MEDS: BUDESONIDE 1 MG/2 ML NEBU INHALATION SCH ×2 (07:36→20:03)
[2019-10-07] MEDS: IPRATROPIUM-ALBUTEROL 3 ML NEB INHALATION SCH ×3 (07:36→20:03)
[2019-10-07] MEDS: ATORVASTATIN 40 MG TAB PO SCH (08:24)
[2019-10-07] MEDS: ASPIRIN 325 MG TAB PO SCH (08:31)
[2019-10-07] MEDS: INSULIN ASPART (NovoLOG) 100 UNIT/ML VIAL SQ SCH ×4 (08:31→20:35)
[2019-10-07] MEDS: PANTOPRAZOLE 40 MG TABLET PO SCH (08:31)
--- NOTE | 2019-10-07 10:39 | PN ---
PROGRESS NOTE Mr. Brown has hypertension and yesterday I saw him in the emergency room. He had a recent dobutamine stress echo that was negative. He is asymptomatic. His BP control is excellent on the current regimen. His vitals are stable. There is no JVD. S1, S2 heard normally. Heart sounds heard distantly. Lungs are clear. Abdomen and lower extremity exam unchanged. Plan is to discharge home on current medications and with risk factor modification. I will see him in the office in 2 weeks. Advised a low-calorie, low carb diet and serious weight reduction efforts. MMODL / IJN: [id number] /
[2019-10-07 11:57] LABS: Glucose,Whole Blood 203 mg/dL (75-99)
--- NOTE | 2019-10-07 12:54 | P.PN ---
Subjective Progress Note Date: 10/07/19 Principal diagnosis: Acute asthma exacerbation Atypical chest pain Morbid obesity and likely sleep disorder breathing and sleep apnea Chronic intermittent asthma GERD Hypertension hypertensive cardiovascular disease Dyslipidemia Type 2 diabetes mellitus Right lower lobe subsegmental atelectasis resolving 10/07/2019, patient seen eval examined during the round labs reviewed medications reviewed patient just woken up, its, and to have the wheezing and shortness of breath the morning denies any chest pain, patient ran out of the the inhalation medicine at prescription has been provided a prescription also provided for a bring steroids and antibiotics today at home, from pulmonary standpoint patient can be discharged with follow-up in outpatient basis Objective - Vital Signs Vital signs: Vital Signs Temp 98.3 F 10/07/19 12:13 Pulse 118 H 10/07/19 12:19 Resp 20 10/07/19 12:19 BP 100/65 10/07/19 12:13 Pulse Ox 90 L 10/07/19 12:13 Intake & Output 10/06/19 10/07/19 10/07/19 18:59 06:59 18:59 Intake Total 236 480 Balance 236 480 Weight 145.15 kg Intake: Oral 236 480 Other: Voiding Method Toilet # Voids 1 - Exam - Constitutional General appearance: disheveled, morbidly obese, no acute distress - EENT Eyes: EOMI, PERRLA, poor dentition, normal appearance Ears: bilateral: normal - Neck Neck: normal ROM Carotids: bilateral: upstroke normal Thyroid: bilateral: normal size - Respiratory Respiratory: bilateral: Very fine expiratory wheezing audible on fours expirat ion - Cardiovascular Rhythm: regular Heart sounds: normal: S1, S2 - Gastrointestinal General gastrointestinal: decreased bowel sounds, distended - Neurologic Neurologic: CNII-XII intact - Musculoskeletal Musculoskeletal: gait normal, generalized weakness, strength equal bilaterally - Psychiatric Psychiatric: A&O x's 3, appropriate affect, intact judgment & insight - Labs CBC & Chem 7: 10/06/19 08:37 10/06/19 08:37 Labs: Abnormal Lab Results - Last 24 Hours (Table) 10/06/19 10/06/19 10/06/19 Range/Units 08:37 16:38 20:29 POC Glucose (mg/dL) 193 H 164 H (75-99) mg/dL Triglycerides 243 H (<150) mg/dL Cholesterol 202 H (<200) mg/dL LDL Cholesterol, Calc 112 H (0-99) mg/dL 10/07/19 10/07/19 Range/Units 06:48 11:56 POC Glucose (mg/dL) 183 H 203 H (75-99) mg/dL Triglycerides (<150) mg/dL Cholesterol (<200) mg/dL LDL Cholesterol, Calc (0-99) mg/dL Assessment and Plan Assessment: Acute COPD exacerbation Atypical chest pain Morbid obesity and likely sleep disorder breathing and sleep apnea Chronic intermittent asthma GERD Hypertension hypertensive cardiovascular disease Dyslipidemia Type 2 diabetes mellitus Right lower lobe subsegmental atelectasis resolving Plan: Prescription provided for oral tapering prednisone and antibiotics and inhalation medicine albuterol Agree with Protonix Sleep study as outpatient Observe clinical course closely If remains stable can be discharged from pulmonary standpoint Time with Patient: Greater than 30
[2019-10-07] MEDS: METOPROLOL TARTRATE 25 MG TAB PO SCH (13:18)
--- NOTE | 2019-10-07 13:38 | P.PN ---
Subjective Progress Note Date: 10/07/19 This is a 59-year-old male one of Dr. Noah Bustillos/Rikki Griffith with a previous medical history significant for mild persistent asthma, hypertension and hypertensive cardio vascular disease, hyperlipidemia, psoriatic arthritis, morbid obesity hypoventilation syndrome, and diagnosed to have sleep apnea, and is being worked up for CPAP studies was recently admitted from our facility 08/29/2019 secondary to pneumonia, and was discharged with antibiotic and is on nebulizes. Patient did not require any home O2, patient comes in to emergency room secondary to chest pressure that happened while patient was getting into the shower, patient did not have any chest pain or stabbing pain, no radiation of pain, chest pressures located in the anterior precordial region, no relation to the gallbladder area, also has epigastric discomfort. Patient does not have any obstruction or diarrhea or vomiting, was seen in emergency room to evaluate for the cardiac chest pressure. Patient had no stress test for the past several years, no cardiac intervention including a heart cath. Imaging studies in the past included a negative gallbladder ultrasound in July 2019. No HIDA scan performed. Patient has cough, clear, no fever no chills, no leg pain, she he thinks that there is more leg swelling 1 to chest pressure occurred, no calf pain. 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 He was started on Lipitor yesterday and also metformin. Patient was also seen by both medicine and cleared for discharge home. Discussed all his discharge medications with him and patient was prepared for discharge. Received call later that patient was complaining of shortness of breath and was put on oxygen with pulse ox of 90% initially, heart rate of 1:15 to 120. Patient has refused to take his medication including Lopressor. Encouraged nursing to try again with Lopressor to control his heart rate. Patient will be monitored overnight and plan for discharge home tomorrow. Review of Systems Constitutional: Reports as per HPI, Denies anorexia, Denies chills, Denies chronic headaches, Denies chronic pain, Denies daytime sleepiness, Denies fatigue, Denies fever, Denies lethargy, Denies malaise, Denies night sweats, Denies poor appetite, Denies sweats, Denies weakness, Denies weight gain, Denies weight loss Ears, nose, mouth and throat: Reports as per HPI, Denies ant. neck pain, Denies bleeding gums, Denies dental pain, Denies dysphagia, Denies epistaxis, Denies headache, Denies hoarseness, Denies mouth pain, Denies nasal congestion, Denies nasal discharge, Denies neck fullness/pressure, Denies neck lump, Denies nose pain, Denies odynophagia, Denies post-nasal drip, Denies sinus pain, Denies sinus pressure, Denies swelling in mouth, Denies swelling in throat, Denies sore throat, Denies vertigo, Denies voice changes Cardiovascular: Reports chest pain, Reports dyspnea on exertion, Reports shortness of breath Respiratory: Reports as per HPI, Reports cough Gastrointestinal: Reports as per HPI, Denies abdominal pain, Denies belching, Denies bloating, Denies BRBPR, Denies change in bowel habits, Denies coffee ground emesis, Denies constipation, Denies diarrhea, Denies dyspepsia, Denies early satiety, Denies excessive gas, Denies heartburn, Denies hematemesis, Denies hematochezia, Denies indigestion, Denies jaundice, Denies lactose intolerance, Denies loss of appetite, Denies melena, Denies nausea, Denies vomiting Genitourinary: Reports as per HPI Musculoskeletal: Reports as per HPI, Denies arm numbness/tingling, Denies atrophy, Denies fractures, Denies frequent falls, Denies gait dysfunction, Denies hot joints, Denies leg numbness/tingling, Denies limitation of motion, Denies loss of height, Denies low back pain, Denies morning stiffness, Denies muscle cramps, Denies muscle weakness, Denies myalgias, Denies neck pain, Denies neck stiffness, Denies prior amputations, Denies redness of joints, Denies shooting arm pain, Denies shooting leg pain Integumentary: Denies rashes Neurological: Reports as per HPI, Denies aphasia, Denies ataxia, Denies balance difficulties, Denies burning pain, Denies change in mentation, Denies change in smell/taste, Denies change in speech, Denies confusion, Denies convulsions, Denies double vision, Denies gait dysfunction, Denies head injury, Denies headaches, Denies hearing difficulties, Denies lack of coordination, Denies loss of vision, Denies memory loss, Denies migraines, Denies motor disturbance, Denies numbness, Denies paralysis, Denies paresthesias, Denies seizures, Denies sensory deficit, Denies spasticity, Denies syncope, Denies tic, Denies tingling, Denies transient paralysis, Denies tremors, Denies vertigo, Denies weakness, Denies visual changes Psychiatric: Reports as per HPI, Denies anhedonia, Denies anxiety, Denies anxiety attacks, Denies change in appetite, Denies change in libido, Denies change in sleep habits, Denies confusion, Denies depression, Denies difficulty concentrating, Denies disorientation, Denies hallucinations, Denies hopelessness , Denies hypersomnia, Denies insomnia, Denies irritability, Denies memory loss, Denies mood swings, Denies paranoia, Denies sadness/tearfulness, Denies sleep disturbances, Denies suicidal ideation Endocrine: Reports as per HPI, Reports recent glucocorticoid use, reports abno rmal blood sugar Hematologic/Lymphatic: Reports as per HPI, Denies easy bleeding, Denies easy bruising, Denies lymphadenopathy, Denies lymphedema, Denies thrombophilia Allergic/Immunologic: Reports as per HPI, Reports wheezing, Denies allergic rhinitis, Denies anaphylaxis, Denies angioedema, Denies gluten intolerance, Denies persistent infections, Denies seasonal allergies, Denies urticaria Objective - Vital Signs Vital signs: Vital Signs Temp 98.3 F 10/07/19 12:13 Pulse 118 H 10/07/19 12:19 Resp 20 10/07/19 12:19 BP 100/65 10/07/19 12:13 Pulse Ox 90 L 10/07/19 12:13 Intake & Output 10/06/19 10/07/19 10/07/19 18:59 06:59 18:59 Intake Total 236 480 Balance 236 480 Weight 145.15 kg Intake: Oral 236 480 Other: Voiding Method Toilet # Voids 1 - Exam - Constitutional General appearance: cooperative, morbidly obese - EENT Eyes: anicteric sclerae, EOMI, PERRLA, dentition normal, normal appearance ENT: NA/AT, normal oropharynx - Neck Neck: normal ROM - Respiratory Respiratory: bilateral: wheezing - Cardiovascular Rhythm: regular Abnormal Heart Sounds: no systolic murmur, no diastolic murmur, no rub, no S3 Gallop, no S4 Gallop, no click, no other - Gastrointestinal General gastrointestinal: normal bowel sounds, soft - Integumentary Integumentary: normal turgor - Neurologic Neurologic: CNII-XII intact - Musculoskeletal Musculoskeletal: gait normal, strength equal bilaterally - Labs CBC & Chem 7: 10/06/19 08:37 10/06/19 08:37 Labs: Abnormal Lab Results - Last 24 Hours (Table) 10/06/19 10/06/19 10/06/19 Range/Units 08:37 16:38 20:29 POC Glucose (mg/dL) 193 H 164 H (75-99) mg/dL Triglycerides 243 H (<150) mg/dL Cholesterol 202 H (<200) mg/dL LDL Cholesterol, Calc 112 H (0-99) mg/dL 10/07/19 10/07/19 Range/Units 06:48 11:56 POC Glucose (mg/dL) 183 H 203 H (75-99) mg/dL Triglycerides (<150) mg/dL Cholesterol (<200) mg/dL LDL Cholesterol, Calc (0-99) mg/dL Assessment and Plan Plan: 1. Acute chest pressure without any prior history of CAD documented in the past, atypical symptoms, however patient also has wheezing episodes today, with dry cough. Negative for d-dimer, negative normal levels for BNP, troponins 0.01, other cardio biomarkers is going to be done, his echocardiogram was reviewed, we'll going to obtain cardiac consultation, patient is on subcu heparin and when necessary sublingual nitro, aspirin, lipid panels. Last A1c was 6.4,, could be steroid induced gastritis, start on Protonix 40 mg IV, no plans for intervention to include EGD at this time unless more symptoms, lipase to be done, patient would need a stress echocardiogram or a Lexiscan stress test soon. Continue Lipitor. 2. Mild persistent asthma with exacerbation, steroid IV to be done with Solu- Medrol decreased to 40 mg every 8 hours, nebulized solution, patient is not on any asthma shots at Dr. Bustillos/Rikki Griffith's office, DuoNeb 3 mg nebulization 4 times every day, restart Pulmicort 0.5 mg twice daily, continue Singulair 10 mg at bedtime, pulmonary consultation appreciated. Patient is not on any inhaled steroid treatments prior to admission, recently completed oral prednisone last August for for his last admission, no current plans for prednisone on discharge, we will use nebulized or inhaled steroids for discharge 3. Hypertension and hypertensive cardiovascular disease uncontrolled. increase patient on lisinopril 10 bid, metoprolol added by cardiology 4. Hyperlipidemia. Low-cholesterol diet. Not on statin, previous LDL in 2018 was 148, start Lipitor 40, check lipid panel. Lipitor started. 5. Osteoarthritis, generalized. 6. Diabetes mellitus type 2 uncontrolled with with steroid-induced hyperglycemia with this metabolic syndrome X. A1c 6.4, August 2019, Continue patient on sliding scale insulin. Restart metformin 850 mg daily 7. Morbid obesity with obstructive sleep apnea currently has no CPAP however studies still needs to be initiated. 8. DVT prophylaxis. Lovenox subcu 9. GI prophylaxis. Continue Protonix 40 mg orally once every day. 10. Dizziness with orthostatic hypotension. One dose of meclizine given. Hold IV fluids due to lower extremity edema. CODE STATUS: Full code Discharge plan: Home in the next 24hours. Impression and plan of care have been directed as dictated by the signing physician. Kiley Diaz nurse practitioner acting as scribe for signing physician.
[2019-10-07 16:46] LABS: Glucose,Whole Blood 166 mg/dL (75-99)
[2019-10-07] MEDS: metFORMIN 850 MG TAB PO SCH (17:04)
[2019-10-07] MEDS: LISINOPRIL 10 MG TAB PO SCH ×2 (17:05→19:44)
[2019-10-07] MEDS: LISINOPRIL 20 MG TAB PO SCH (20:13)
[2019-10-07 20:17] LABS: Glucose,Whole Blood 146 mg/dL (75-99)
[2019-10-07] MEDS: methylPREDNISolone SOD SUCCI 40 MG/ML 1 ML VIAL IV SCH (20:36)
[2019-10-08] MEDS: IPRATROPIUM-ALBUTEROL 3 ML NEB INHALATION PRN (03:05)
[2019-10-08] MEDS: HEPARIN SODIUM,PORCINE 5,000 UNIT/ML 1 ML VIAL SQ SCH ×2 (03:33→12:35)
[2019-10-08] MEDS: methylPREDNISolone SOD SUCCI 40 MG/ML 1 ML VIAL IV SCH ×2 (03:33→12:34)
[2019-10-08 06:50] LABS: Glucose,Whole Blood 136 mg/dL (75-99)
[2019-10-08] MEDS: IPRATROPIUM-ALBUTEROL 3 ML NEB INHALATION SCH ×2 (06:58→13:09)
[2019-10-08] MEDS: BUDESONIDE 1 MG/2 ML NEBU INHALATION SCH (06:58)
[2019-10-08] MEDS: LISINOPRIL 10 MG TAB PO SCH (08:13)
[2019-10-08] MEDS: ATORVASTATIN 40 MG TAB PO SCH (08:13)
[2019-10-08] MEDS: INSULIN ASPART (NovoLOG) 100 UNIT/ML VIAL SQ SCH ×2 (08:21→12:34)
[2019-10-08] MEDS: PANTOPRAZOLE 40 MG TABLET PO SCH (08:21)
[2019-10-08] MEDS: METOPROLOL TARTRATE 25 MG TAB PO SCH (08:21)
[2019-10-08] MEDS: metFORMIN 850 MG TAB PO SCH (08:22)
[2019-10-08] MEDS: ASPIRIN 325 MG TAB PO SCH (08:33)
[2019-10-08] MEDS ORDERED: MONTELUKAST 10 MG TAB PO SCH (09:00)
[2019-10-08 11:46] LABS: Glucose,Whole Blood 182 mg/dL (75-99)
[2019-10-08 12:00] VITALS: BP 133/87; TEMP 98.3
[2019-10-08 13:11] VITALS: PULSE 101; RESP 18
--- NOTE | 2019-10-08 15:13 | P.DS ---
Providers Date of admission: 10/06/19 10:34 Expected date of discharge: 10/08/19 Attending physician: Drea Song Consults: 10/06/19 10:34 Consult Physician Urgent Consulting Provider: Foreign Oneill Consult Reason/Comments: cp Do you want consulting provider notified?: Yes 10/06/19 12:55 Consult Physician Routine Consulting Provider: Riki Griffith Consult Reason/Comments: asthma Do you want consulting provider notified?: Yes Primary care physician: [facility] Course: This is a 59-year-old male one of Dr. Noah Bustillos/Rikki Griffith with a previous medical history significant for mild persistent asthma, hypertension and hypertensive cardio vascular disease, hyperlipidemia, psoriatic arthritis, morbid obesity hypoventilation syndrome, and diagnosed to have sleep apnea, and is being worked up for CPAP studies was recently admitted from our facility 08/29/2019 secondary to pneumonia, and was discharged with antibiotic and is on nebulizes. Patient did not require any home O2, patient comes in to emergency room secondary to chest pressure that happened while patient was getting into the shower, patient did not have any chest pain or stabbing pain, no radiation of pain, chest pressures located in the anterior precordial region, no relation to the gallbladder area, also has epigastric discomfort. Patient does not have any obstruction or diarrhea or vomiting, was seen in emergency room to evaluate for the cardiac chest pressure. Patient had no stress test for the past several years, no cardiac intervention including a heart cath. Imaging studies in the past included a negative gallbladder ultrasound in July 2019. No HIDA scan performed. Patient has cough, clear, no fever no chills, no leg pain, she he thinks that there is more leg swelling 1 to chest pressure occurred, no calf pain. 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 He was started on Lipitor yesterday and also metformin. Patient was also seen by both medicine and cleared for discharge home. Discussed all his discharge medications with him and patient was prepared for discharge. Received call later that patient was complaining of shortness of breath and was put on oxygen with pulse ox of 90% initially, heart rate of 115 to 120. Patient has refused to take his medication including Lopressor. Encouraged nursing to try again with Lopressor to control his heart rate. Patient will be monitored overnight and plan for discharge home tomorrow. 10/08: Patient states that he is feeling much better today. He denies any chest pain or shortness of breath. Heart rate is now running about 100, blood pressure 133/87, pulse ox 97% on 2 L, afebrile. Blood sugars running between 136 and 182. Patient was cleared yesterday by consultants. Patient will be discharged home today in stable condition. Discharge diagnoses: 1. Acute chest pressure without any prior history of CAD documented in the past, atypical symptoms 2. Mild persistent asthma with exacerbation 3. Hypertension and hypertensive cardiovascular disease uncontrolled. 4. Hyperlipidemia. 5. Osteoarthritis, generalized. 6. Diabetes mellitus type 2 uncontrolled with with steroid-induced hyperglycemia with this metabolic syndrome X. 7. Morbid obesity with obstructive sleep apnea currently has no CPAP however studies still needs to be initiated. 8. Dizziness with orthostatic hypotension. Discharge plan: Home. Impression and plan of care have been directed as dictated by the signing physician. Kiley Diaz nurse practitioner acting as scribe for signing physician. Patient Condition at Discharge: Good Plan - Discharge Summary Discharge Rx Participant: No New Discharge Prescriptions: New metFORMIN HCL [Glucophage] 850 mg PO W/BRKFST #30 tab Atorvastatin [Lipitor] 40 mg PO DAILY #30 tab Metoprolol Tartrate [Lopressor] 25 mg PO DAILY #30 tab predniSONE 0 mg PO DIRECTED #30 tab Pantoprazole [Protonix] 40 mg PO AC-BRKFST #30 tablet. Budesonide-Formot 160-4.5 Mcg [Symbicort 160-4.5 Mcg Inhaler] 2 puff INHALATION BID #1 inhaler Doxycycline [Vibramycin] 100 mg PO BID 7 Days #14 capsule Continue Montelukast Sodium [Singulair] 10 mg PO HS Albuterol Sulfate [Proair Hfa] 2 puff INHALATION RT-QID PRN PRN Reason: Shortness Of Breath Multivitamins, Thera [Multivitamin (formulary)] 1 tab PO DAILY Acetaminophen [Tylenol Arthritis] 650 mg PO TID PRN PRN Reason: Pain Albuterol Nebulized [Ventolin Nebulized] 2.5 mg INHALATION RT-Q6H PRN #120 neb PRN Reason: Shortness Of Breath Changed Lisinopril [Prinivil] 10 mg PO BID #60 tab Discharge Medication List Albuterol Sulfate [Proair Hfa] 2 puff INHALATION RT-QID PRN 05/18/18 [History] Montelukast Sodium [Singulair] 10 mg PO HS 05/18/18 [History] Acetaminophen [Tylenol Arthritis] 650 mg PO TID PRN 10/06/19 [History] Multivitamins, Thera [Multivitamin (formulary)] 1 tab PO DAILY 10/06/19 [History] Albuterol Nebulized [Ventolin Nebulized] 2.5 mg INHALATION RT-Q6H PRN #120 neb 10/07/19 [Rx] Atorvastatin [Lipitor] 40 mg PO DAILY #30 tab 10/07/19 [Rx] Budesonide-Formot 160-4.5 Mcg [Symbicort 160-4.5 Mcg Inhaler] 2 puff INHALATION BID #1 inhaler 10/07/19 [Rx] Lisinopril [Prinivil] 10 mg PO BID #60 tab 10/07/19 [Rx] Metoprolol Tartrate [Lopressor] 25 mg PO DAILY #30 tab 10/07/19 [Rx] Pantoprazole [Protonix] 40 mg PO AC-BRKFST #30 tablet. 10/07/19 [Rx] metFORMIN HCL [Glucophage] 850 mg PO W/BRKFST #30 tab 10/07/19 [Rx] predniSONE 0 mg PO DIRECTED #30 tab 10/07/19 [Rx] Doxycycline [Vibramycin] 100 mg PO BID 7 Days #14 capsule 10/08/19 [Rx] Follow up Appointment(s)/Referral(s): Roger Lane MD [Primary Care Provider] - 10/15/19 9:00 am Riki Griffith MD [STAFF PHYSICIAN] - 10/20/19 9:00 am ([facility] ) Stuart Lemus MD [STAFF PHYSICIAN] - 10/22/19 11:00 am Discharge Disposition: HOME SELF-CARE
--- NOTE | 2019-10-08 15:43 | P.PN ---
Subjective Progress Note Date: 10/08/19 Principal diagnosis: Acute asthma exacerbation Atypical chest pain Morbid obesity and likely sleep disorder breathing and sleep apnea Chronic intermittent asthma GERD Hypertension hypertensive cardiovascular disease Dyslipidemia Type 2 diabetes mellitus Right lower lobe subsegmental atelectasis resolving 10/08/2019, patient seen eval reexamined during the rounds labs reviewed medications reviewed care plan discussed with the primary service her cough congestion is improved now, no more wheezing is present stable from pulmonary standpoint for discharge follow with primary civil engineering intern , Prescription has been provided to the patient off antibiotics tapering steroid s 10/07/2019, patient seen eval examined during the round labs reviewed medications reviewed patient just woken up, its, and to have the wheezing and shortness of breath the morning denies any chest pain, patient ran out of the the inhalation medicine at prescription has been provided a prescription also provided for a bring steroids and antibiotics today at home, from pulmonary standpoint patient can be discharged with follow-up in outpatient basis Objective - Vital Signs Vital signs: Vital Signs Temp 98.3 F 10/08/19 11:59 Pulse 101 H 10/08/19 13:20 Resp 18 10/08/19 13:09 BP 133/87 10/08/19 11:59 Pulse Ox 97 10/08/19 11:59 Intake & Output 10/07/19 10/08/19 10/08/19 18:59 06:59 18:59 Weight 146.4 kg Other: Voiding Method Toilet Toilet Toilet # Voids 1 1 - Exam - Constitutional General appearance: disheveled, morbidly obese, no acute distress - EENT Eyes: EOMI, PERRLA, poor dentition, normal appearance Ears: bilateral: normal - Neck Neck: normal ROM Carotids: bilateral: upstroke normal Thyroid: bilateral: normal size - Respiratory Respiratory: bilateral: Very fine expiratory wheezing audible on fours ex piration - Cardiovascular Rhythm: regular Heart sounds: normal: S1, S2 - Gastrointestinal General gastrointestinal: decreased bowel sounds, distended - Neurologic Neurologic: CNII-XII intact - Musculoskeletal Musculoskeletal: gait normal, generalized weakness, strength equal bilaterally - Psychiatric Psychiatric: A&O x's 3, appropriate affect, intact judgment & insight - Labs CBC & Chem 7: 10/06/19 08:37 10/06/19 08:37 Labs: Abnormal Lab Results - Last 24 Hours (Table) 10/07/19 10/07/19 10/08/19 Range/Units 16:45 20:16 06:47 POC Glucose (mg/dL) 166 H 146 H 136 H (75-99) mg/dL 10/08/19 Range/Units 11:45 POC Glucose (mg/dL) 182 H (75-99) mg/dL Assessment and Plan Assessment: Acute COPD exacerbation Atypical chest pain Morbid obesity and likely sleep disorder breathing and sleep apnea Chronic intermittent asthma GERD Hypertension hypertensive cardiovascular disease Dyslipidemia Type 2 diabetes mellitus Right lower lobe subsegmental atelectasis resolving Plan: Prescription provided for oral tapering prednisone and antibiotics and inhalation medicine albuterol Agree with Protonix Sleep study as outpatient Observe clinical course closely If remains stable can be discharged from pulmonary standpoint Time with Patient: Greater than 30
== END 2019-10-08 15:48 | disposition home or self-care (01) ==
LOC: EC 08:30 → 1SOBS 10:34
PROVIDERS: ADMIT Family Medicine; ATTEND Family Medicine
DX: R07.89 Other chest pain (principal); J45.31 Mild persistent asthma with (acute) exacerbation; I10 Essential (primary) hypertension; I11.9 Hypertensive heart disease without heart failure; E78.5 Hyperlipidemia, unspecified; M15.9 Polyosteoarthritis, unspecified; M17.11 Unilateral primary osteoarthritis, right knee; T38.0X5A Adverse effect of glucocorticoids and synthetic analogues, initial encounter; E09.65 Drug or chemical induced diabetes mellitus with hyperglycemia; E88.81 Metabolic syndrome and other insulin resistance; G47.33 Obstructive sleep apnea (adult) (pediatric); I95.1 Orthostatic hypotension; R20.0 Anesthesia of skin; L40.50 Arthropathic psoriasis, unspecified; G47.30 Sleep apnea, unspecified; I08.1 Rheumatic disorders of both mitral and tricuspid valves; E66.2 Morbid (severe) obesity with alveolar hypoventilation; Z68.42 Body mass index [BMI] 45.0-49.9, adult; Z79.899 Other long term (current) drug therapy; Z87.828 Personal history of other (healed) physical injury and trauma; Z98.890 Other specified postprocedural states; Z87.898 Personal history of other specified conditions; Z87.891 Personal history of nicotine dependence; Z87.01 Personal history of pneumonia (recurrent); Z80.41 Family history of malignant neoplasm of ovary; Z80.0 Family history of malignant neoplasm of digestive organs; Z82.5 Family history of asthma and other chronic lower respiratory diseases; Z83.79 Family history of other diseases of the digestive system; Z82.49 Family history of ischemic heart disease and other diseases of the circulatory system; K21.9 Gastro-esophageal reflux disease without esophagitis; J98.11 Atelectasis; I16.0 Hypertensive urgency
CPT/HCPCS: 93005 ×2; 96372 ×4; 96376 ×3; 96374; 99285; 36415; 94640 ×6; 94760 ×2; 93306; 85379; 83880; 80061; 80053; 83690; 83735; 84484; 85025; 85610; 85730; 71046; G0378 ×3; J1644 ×3; J2920 ×2; J2930 ×2; Q9950

== ENCOUNTER 2019-10-09 09:03 | Emergency (ER) | payer BC ==
[2019-10-09 09:10] VITALS: PULSE 101; RESP 18; TEMP 98
[2019-10-09 09:43] VITALS: BP 127/85
--- NOTE | 2019-10-09 10:13 | ED ---
Recheck HPI - General Chief Complaint: Recheck/Abnormal Lab/Rx Stated Complaint: states bp high, stomach ache Time Seen by Provider: 10/09/19 09:11 Source: patient Mode of arrival: ambulatory Limitations: no limitations - History of Present Illness Initial Comments: Patient is a 59-year-old male presenting to the emergency department with concerns for with high blood pressure and feeling like his legs are restless. Patient states he was recently released from observation yesterday afternoon. Patient states he then it went to work all night and just got back this morning. Patient states he took his blood pressure and it was in the 180s and he also feels like his legs are constantly moving. She denies any chest pain, chest pressure, shortness of breath. He did see a precision crop manager in a practice office associate while he was in observation 2 days ago. He does have a follow-up with his precision crop manager week. They recently started him on 2 more blood pressure medications as well as metformin and steroids. He denies any fever, nausea, vomiting, abdominal pain, urinary complaints. He has had regular bowel movements. He has no other complaints at this time. Upon arrival to the ER his blood pressure is 144/101, rest of vitals normal. - Related Data Home Medications Medication Instructions Recorded Confirmed Albuterol Sulfate [Proair Hfa] 2 puff INHALATION RT-QID PRN 05/18/18 10/09/19 Montelukast Sodium [Singulair] 10 mg PO HS 05/18/18 10/09/19 Acetaminophen [Tylenol Arthritis] 650 mg PO TID PRN 10/06/19 10/09/19 Multivitamins, Thera [Multivitamin 1 tab PO DAILY 10/06/19 10/09/19 (formulary)] Budesonide-Formot 160-4.5 Mcg 2 puff INHALATION RT-BID 10/09/19 10/09/19 [Symbicort 160-4.5 Mcg Inhaler] predniSONE See Taper PO DAILY 10/09/19 10/09/19 Previous Rx's Medication Instructions Recorded Albuterol Nebulized [Ventolin 2.5 mg INHALATION RT-Q6H PRN #120 10/07/19 Nebulized] neb Atorvastatin [Lipitor] 40 mg PO DAILY #30 tab 10/07/19 Lisinopril [Prinivil] 10 mg PO BID #60 tab 10/07/19 Metoprolol Tartrate [Lopressor] 25 mg PO DAILY #30 tab 10/07/19 Pantoprazole [Protonix] 40 mg PO AC-BRKFST #30 tablet. 10/07/19 metFORMIN HCL [Glucophage] 850 mg PO W/BRKFST #30 tab 10/07/19 Doxycycline [Vibramycin] 100 mg PO BID 7 Days #14 capsule 10/08/19 Allergies Allergy/AdvReac Type Severity Reaction Status Date / Time No Known Allergies Allergy Verified 10/09/19 09:57 Review of Systems ROS Statement: Those systems with pertinent positive or pertinent negative responses have been documented in the HPI. ROS Other: All systems not noted in ROS Statement are negative. Past Medical History Past Medical History: Asthma, Hyperlipidemia, Hypertension, Osteoarthritis (OA) Additional Past Medical History / Comment(s): Persistent asthma, NIDDM II- arthritis R knee, L ankle sprain History of Any Multi-Drug Resistant Organisms: None Reported Past Surgical History: Hernia Repair Additional Past Surgical History / Comment(s): Umbilical hernia repair Past Anesthesia/Blood Transfusion Reactions: No Reported Reaction, Motion Sickness Past Psychological History: No Psychological Hx Reported Smoking Status: Former smoker Past Alcohol Use History: None Reported Past Drug Use History: None Reported - Past Family History Mother History Unknown: Yes Family Medical History: Cancer Additional Family Medical History / Comment(s): Mother of ovarian cancer at the age of 78yrs. Father History Unknown: Yes Family Medical History: GI Bleed Additional Family Medical History / Comment(s): Father around age 50 from a bleeding ulcer. Brother(s) Family Medical History: No Reported History Additional Family Medical History / Comment(s): The patient has 2 brothers and one from pneumonia at age 59, 1 is alive with history of bariatric surgery. Sister(s) Family Medical History: No Reported History Additional Family Medical History / Comment(s): Patient has 2 sisters and one has history of gallbladder disease. Daughter(s) Family Medical History: Unable to Obtain Additional Family Medical History / Comment(s): Patient has one daughter with no major medical problems. Son(s) Additional Family Medical History / Comment(s): Patient has 2 sons and one has hypertension. General Exam - General Exam Comments Initial Comments: GENERAL: Well-appearing, well-nourished and in no acute distress. HEAD: Atraumatic, normocephalic. EYES: Pupils equal round and reactive to light, extraocular movements intact, sclera anicteric, conjunctiva are normal. ENT: TMs normal, nares patent, oropharynx clear without exudates. Moist mucous membranes. NECK: Normal range of motion, supple without lymphadenopathy or JVD. LUNGS: Breath sounds clear to auscultation bilaterally and equal. No wheezes rales or rhonchi. HEART: Regular rate and rhythm without murmurs, rubs or gallops. ABDOMEN: Mildly tender in the left lower quadrant secondary to recent heparin injections from hospitalization. Soft, normoactive bowel sounds. No guarding, no rebound. No masses appreciated. : Deferred EXTREMITIES: Normal range of motion, no pitting or edema. No clubbing or cyanosis. NEUROLOGICAL: Cranial nerves II through XII grossly intact. Normal speech, normal gait. PSYCH: Normal mood, normal affect. SKIN: Warm, Dry, normal turgor, no rashes or lesions noted. Limitations: no limitations Course Vital Signs 10/09/19 10/09/19 09:07 09:42 Temperature 98 F Pulse Rate 101 H Respiratory 18 Rate Blood Pressure 144/101 127/85 O2 Sat by Pulse 97 Oximetry Medical Decision Making - Medical Decision Making Patient is a 59-year-old male presenting with concerns for elevated BP as well as his legs feeling restless. Patient was recently discharged from observation yesterday for acute asthma exacerbation as well as chest pressure. He was cleared for cardiology and pulmonology. He was also started on 2 new blood pressure medications and increase his lisinipril. He is also started on prednisone and metformin. Patient states he remembers taking prednisone in the past which made him feel similar to how he is feeling now. Patient's blood pressure was retaken and is 127/85. I discussed in detail about patient's medications and side effects of such medications. Patient states he feels like he may have rushed into come to the ER today. He is comfortable being discharged. He will follow-up with his precision crop manager in one week. Return parameters were discussed with the patient and he verbalized understanding. Case discussed with Dr. Palacios. Disposition Clinical Impression: Restless legs, High blood pressure Disposition: HOME SELF-CARE Condition: Stable Instructions (If sedation given, give patient instructions): Hypertension (ED) Additional Instructions: Please return to the Emergency Department if symptoms worsen or any other concerns. Follow-up with precision crop manager as discussed. Continue with prescribed medications. Is patient prescribed a controlled substance at d/c from ED?: No Referrals: Roger Lane MD [Primary Care Provider] - 1-2 days
== END 2019-10-09 10:19 | disposition home or self-care (01) ==
LOC: EC 09:03
DX: G25.81 Restless legs syndrome (principal); I10 Essential (primary) hypertension; J45.901 Unspecified asthma with (acute) exacerbation; E11.9 Type 2 diabetes mellitus without complications; M17.11 Unilateral primary osteoarthritis, right knee; Z79.52 Long term (current) use of systemic steroids; Z79.84 Long term (current) use of oral hypoglycemic drugs; Z79.899 Other long term (current) drug therapy; Z87.891 Personal history of nicotine dependence; Z79.51 Long term (current) use of inhaled steroids; Z98.890 Other specified postprocedural states
CPT/HCPCS: 99283

== ENCOUNTER 2019-10-15 16:18 | Inpatient (IN) | payer BC ==
[2019-10-15 16:51] LABS: Basophils % (A) 0 %; Eosinophils # (A) 0.2 k/uL (0-0.7); Eosinophils % (A) 1 %; HCT 49.8 % (39.0-53.0); HGB 16.6 gm/dL (13.0-17.5); Lymphocytes # (A) 1.1 k/uL (1.0-4.8); Lymphocytes % (A) 8 %; MCH 31.4 pg (25.0-35.0); MCHC 33.4 g/dL (31.0-37.0); MCV 94.1 fL (80.0-100.0); Mean Platelet Volume 6.7; Monocytes # (A) 0.4 k/uL (0-1.0); Monocytes % (A) 3 %; Neutrophils # (A) 11.5 k/uL (1.3-7.7); Neutrophils % (A) 87 %; Platelet Count 273 k/uL (150-450); RBC 5.29 m/uL (4.30-5.90); RDW 13.1 % (11.5-15.5); WBC 13.2 k/uL (3.8-10.6)
--- NOTE | 2019-10-15 16:57 | XR ---
EXAMINATION TYPE: XR chest 2V DATE OF EXAM: 10/15/2019 COMPARISON: 10/06/2019 INDICATION: Difficulty breathing history of asthma TECHNIQUE: Frontal and lateral views of the chest are obtained. FINDINGS: The heart size is normal. The pulmonary vasculature is normal. The lungs are clear. IMPRESSION: 1. No acute pulmonary process.
[2019-10-15 16:59] LABS: ALT 17 U/L (4-49); AST 20 U/L (17-59); African American GFR (CKD) >90 (>60 ml/min/1.73 sqM); Albumin 3.7 g/dL (3.5-5.0); Alkaline Phosphatase 62 U/L (38-126); Anion Gap 8 mmol/L; Blood Urea Nitrogen 19 mg/dL (9-20); Calcium 9.1 mg/dL (8.4-10.2); Carbon Dioxide 24 mmol/L (22-30); Chloride 103 mmol/L (98-107); Glucose 188 mg/dL (74-99); Non-African American GFR(CKD) >90 (>60 ml/min/1.73 sqM); Potassium 4.5 mmol/L (3.5-5.1); Sodium 135 mmol/L (137-145); Total Bilirubin 0.8 mg/dL (0.2-1.3)
[2019-10-15 17:10] LABS: D-Dimer 0.36 mg/L FEU (<0.60); INR 0.9 (<1.2); Prothrombin Time 9.5 sec (9.0-12.0)
[2019-10-15] MEDS ORDERED: SODIUM CHLORIDE 0.9% 500 ML 500 ML IV ONE (17:14)
[2019-10-15] MEDS ORDERED: IPRATROPIUM-ALBUTEROL 3 ML NEB INHALATION STA (17:14)
[2019-10-15] MEDS ORDERED: methylPREDNISolone SOD SUCCI 125 MG/2 ML VIAL IV STA (17:14)
[2019-10-15] MEDS ORDERED: ASPIRIN 81 MG PO STA (17:42)
[2019-10-15] MEDS ORDERED: NALOXONE 0.4 MG/ML 1 ML VIAL IV PRN (19:42)
[2019-10-15] MEDS ORDERED: NITROGLYCERIN SL TABS 0.4 MG TAB SUBLINGUAL PRN (19:44)
--- NOTE | 2019-10-15 19:50 | ED ---
SOB HPI - General Chief Complaint: Shortness of Breath Stated Complaint: SOB Time Seen by Provider: 10/15/19 16:21 Source: patient, EMS Mode of arrival: EMS - History of Present Illness Initial Comments: 59yo female presenting today for chief complaint of shortness of breath. Pat blade states he was at a routine doctor's office visit when he was standing he became diaphoretic short of breath. Patient states he felt a numbness across his chest may be sort of a pressure. He denies any chest pain now or pressure. Patient denies any syncope he denies any fevers. Patient denies any back pain neck pain jaw pain arm pain patient states this has been happening on and off really ambulate at home he states he feels like his feet are heavy and swollen. Patient denies history of heart failure. Patient denies any difficulty lying flat. Patient denies any history of DVT or pulmonary embolism denies any history of active cancer denies hemoptysis or pleuritic chest pain. Patient denies any unilateral leg swelling. Recent surgeries or recent lower extremity injuries. Remaining review of systems negative upon arrival patient appears well no signs acute distress he was transported after describing symptoms his primary care provider to the emergency department via EMS - Related Data Home Medications Medication Instructions Recorded Confirmed Albuterol Sulfate [Proair Hfa] 2 puff INHALATION RT-QID PRN 05/18/18 10/09/19 Montelukast Sodium [Singulair] 10 mg PO HS 05/18/18 10/09/19 Acetaminophen [Tylenol Arthritis] 650 mg PO TID PRN 10/06/19 10/09/19 Multivitamins, Thera [Multivitamin 1 tab PO DAILY 10/06/19 10/09/19 (formulary)] Budesonide-Formot 160-4.5 Mcg 2 puff INHALATION RT-BID 10/09/19 10/09/19 [Symbicort 160-4.5 Mcg Inhaler] predniSONE See Taper PO DAILY 10/09/19 10/09/19 Previous Rx's Medication Instructions Recorded Albuterol Nebulized [Ventolin 2.5 mg INHALATION RT-Q6H PRN #120 10/07/19 Nebulized] neb Atorvastatin [Lipitor] 40 mg PO DAILY #30 tab 10/07/19 Lisinopril [Prinivil] 10 mg PO BID #60 tab 10/07/19 Metoprolol Tartrate [Lopressor] 25 mg PO DAILY #30 tab 10/07/19 Pantoprazole [Protonix] 40 mg PO AC-BRKFST #30 tablet. 10/07/19 metFORMIN HCL [Glucophage] 850 mg PO W/BRKFST #30 tab 10/07/19 Doxycycline [Vibramycin] 100 mg PO BID 7 Days #14 capsule 10/08/19 Allergies Allergy/AdvReac Type Severity Reaction Status Date / Time No Known Allergies Allergy Verified 10/09/19 09:57 Review of Systems ROS Statement: Those systems with pertinent positive or pertinent negative responses have been documented in the HPI. ROS Other: All systems not noted in ROS Statement are negative. Past Medical History Past Medical History: Asthma, Hyperlipidemia, Hypertension, Osteoarthritis (OA) Additional Past Medical History / Comment(s): Persistent asthma, NIDDM II- arthritis R knee, L ankle sprain History of Any Multi-Drug Resistant Organisms: None Reported Past Surgical History: Hernia Repair Additional Past Surgical History / Comment(s): Umbilical hernia repair Past Anesthesia/Blood Transfusion Reactions: No Reported Reaction, Motion Sickness Past Psychological History: No Psychological Hx Reported Smoking Status: Former smoker Past Alcohol Use History: None Reported Past Drug Use History: None Reported - Past Family History Mother History Unknown: Yes Family Medical History: Cancer Additional Family Medical History / Comment(s): Mother of ovarian cancer at the age of 78yrs. Father History Unknown: Yes Family Medical History: GI Bleed Additional Family Medical History / Comment(s): Father around age 50 from a bleeding ulcer. Brother(s) Family Medical History: No Reported History Additional Family Medical History / Comment(s): The patient has 2 brothers and one from pneumonia at age 59, 1 is alive with history of bariatric surgery. Sister(s) Family Medical History: No Reported History Additional Family Medical History / Comment(s): Patient has 2 sisters and one has history of gallbladder disease. Daughter(s) Family Medical History: Unable to Obtain Additional Family Medical History / Comment(s): Patient has one daughter with no major medical problems. Son(s) Additional Family Medical History / Comment(s): Patient has 2 sons and one has hypertension. General Exam - General Exam Comments Initial Comments: General: The patient is awake and alert, in no distress, and does not appear acutely ill. Eye: +3 mm pupils are equal, round and reactive to light, extra-ocular movements are intact. No nystagmus. There is normal conjunctiva bilaterally. No signs of icterus. Ears, nose, mouth and throat: There are moist mucous membranes and no oral lesions. Neck: The neck is supple, there is no tenderness or JVD. Cardiovascular: There is a regular rate and rhythm. No murmur, rub or gallop is appreciated. Respiratory: Lungs are clear to auscultation, respirations are non-labored, breath sounds are equal. No wheezes, stridor, rales, or rhonchi. Gastrointestinal: Soft, non-distended, non-tender abdomen without masses or organomegaly noted. There is no rebound or guarding present. No pulsatile masses. Musculoskeletal: Normal ROM, no tenderness. Strength 5/5. Sensation intact. Pulses equal bilaterally 2+. Neurological: A&O x 3. CN II-XII intact grossly, There are no obvious motor or sensory deficits. Coordination appears grossly intact. Speech is normal. Skin: Skin is warm and dry and no rashes or lesions are noted. No LE edema. Psychiatric: Cooperative, appropriate mood & affect, normal judgment. Course Vital Signs 10/15/19 10/15/19 10/15/19 16:19 17:28 17:39 Temperature 98.2 F Pulse Rate 95 93 90 Respiratory 19 Rate Blood Pressure 143/91 O2 Sat by Pulse 94 L Oximetry 10/15/19 18:52 Temperature Pulse Rate 88 Respiratory 18 Rate Blood Pressure 127/80 O2 Sat by Pulse 97 Oximetry Medical Decision Making - Medical Decision Making 59 O male presenting for shortness of breath he did have an episode of diaphoresis and numbness over the chest that he describes as a slight pressure. Patient has no current chest pain or pressure. EKG no ST elevation or depression EKG was reviewed by my attending provider. Initial troponin nega tive. A three-hour will be repeated. Patient appears stable in his room blood pressure within acceptable limits no tachycardia lung sounds clear BMP within normal limits chest x-ray no vascular congestion or focal infiltrates. Patient is concerned of a "blockage of the heart". Patient will be admitted for cardiology evaluation and observation with serial troponins. Dr. Schmidt is agreeable to this care plan and admission at this time. Patient was provided a 324 chewable aspirin in the ED. - Lab Data Result diagrams: 10/15/19 16:30 10/15/19 16:30 Lab Results 10/15/19 10/15/19 10/15/19 Range/Units 16:30 16:30 16:30 WBC 13.2 H (3.8-10.6) k/uL RBC 5.29 (4.30-5.90) m/uL Hgb 16.6 (13.0-17.5) gm/dL Hct 49.8 (39.0-53.0) % MCV 94.1 (80.0-100.0) fL MCH 31.4 (25.0-35.0) pg MCHC 33.4 (31.0-37.0) g/dL RDW 13.1 (11.5-15.5) % Plt Count 273 (150-450) k/uL Neutrophils % 87 % Lymphocytes % 8 % Monocytes % 3 % Eosinophils % 1 % Basophils % 0 % Neutrophils # 11.5 H (1.3-7.7) k/uL Lymphocytes # 1.1 (1.0-4.8) k/uL Monocytes # 0.4 (0-1.0) k/uL Eosinophils # 0.2 (0-0.7) k/uL Basophils # 0.0 (0-0.2) k/uL PT 9.5 (9.0-12.0) sec INR 0.9 (<1.2) APTT 22.0 (22.0-30.0) sec D-Dimer 0.36 (<0.60) mg/L FEU Sodium 135 L (137-145) mmol/L Potassium 4.5 (3.5-5.1) mmol/L Chloride 103 (98-107) mmol/L Carbon Dioxide 24 (22-30) mmol/L Anion Gap 8 mmol/L BUN 19 (9-20) mg/dL Creatinine 0.79 (0.66-1.25) mg/dL Est GFR (CKD-EPI)AfAm >90 (>60 ml/min/1.73 sqM) Est GFR (CKD-EPI)NonAf >90 (>60 ml/min/1.73 sqM) Glucose 188 H (74-99) mg/dL Plasma Lactic Acid Jorge (0.7-2.0) mmol/L Calcium 9.1 (8.4-10.2) mg/dL Magnesium 2.0 (1.6-2.3) mg/dL Total Bilirubin 0.8 (0.2-1.3) mg/dL AST 20 (17-59) U/L ALT 17 (4-49) U/L Alkaline Phosphatase 62 (38-126) U/L Troponin I (0.000-0.034) ng/mL NT-Pro-B Natriuret Pep pg/mL Total Protein 6.0 L (6.3-8.2) g/dL Albumin 3.7 (3.5-5.0) g/dL 10/15/19 10/15/19 10/15/19 Range/Units 16:30 16:30 16:30 WBC (3.8-10.6) k/uL RBC (4.30-5.90) m/uL Hgb (13.0-17.5) gm/dL Hct (39.0-53.0) % MCV (80.0-100.0) fL MCH (25.0-35.0) pg MCHC (31.0-37.0) g/dL RDW (11.5-15.5) % Plt Count (150-450) k/uL Neutrophils % % Lymphocytes % % Monocytes % % Eosinophils % % Basophils % % Neutrophils # (1.3-7.7) k/uL Lymphocytes # (1.0-4.8) k/uL Monocytes # (0-1.0) k/uL Eosinophils # (0-0.7) k/uL Basophils # (0-0.2) k/uL PT (9.0-12.0) sec INR (<1.2) APTT (22.0-30.0) sec D-Dimer (<0.60) mg/L FEU Sodium (137-145) mmol/L Potassium (3.5-5.1) mmol/L Chloride (98-107) mmol/L Carbon Dioxide (22-30) mmol/L Anion Gap mmol/L BUN (9-20) mg/dL Creatinine (0.66-1.25) mg/dL Est GFR (CKD-EPI)AfAm (>60 ml/min/1.73 sqM) Est GFR (CKD-EPI)NonAf (>60 ml/min/1.73 sqM) Glucose (74-99) mg/dL Plasma Lactic Acid Jorge 2.4 H* (0.7-2.0) mmol/L Calcium (8.4-10.2) mg/dL Magnesium (1.6-2.3) mg/dL Total Bilirubin (0.2-1.3) mg/dL AST (17-59) U/L ALT (4-49) U/L Alkaline Phosphatase (38-126) U/L Troponin I <0.012 (0.000-0.034) ng/mL NT-Pro-B Natriuret Pep 17 pg/mL Total Protein (6.3-8.2) g/dL Albumin (3.5-5.0) g/dL Disposition Clinical Impression: Chest pressure, SOB (shortness of breath) Disposition: ADMITTED IP TO THIS [facility] Condition: Stable Is patient prescribed a controlled substance at d/c from ED?: No Referrals: Roger Lane MD [Primary Care Provider] - 1-2 days Time of Disposition: 19:49 Decision to Admit Reason: Admit from EC Decision Date: 10/15/19 Decision Time: 19:49
[2019-10-16] MEDS ORDERED: SODIUM CHLORIDE 0.9% 500 ML 500 ML IV ONE (03:42)
[2019-10-16] MEDS: IPRATROPIUM-ALBUTEROL 3 ML NEB INHALATION PRN ×5 (04:41→20:07)
[2019-10-16] MEDS: SODIUM CHLORIDE 0.9% 1,000 ML IV SCH ×3 (07:04→20:32)
[2019-10-16 07:51] LABS: Cholesterol 227 mg/dL (<200); HDL Cholesterol 61 mg/dL (40-60); LDL Cholesterol,Calculated 139 mg/dL (0-99); Triglycerides 134 mg/dL (<150)
[2019-10-16] MEDS ORDERED: ASPIRIN 325 MG TAB PO SCH (09:00)
[2019-10-16] MEDS: LISINOPRIL 10 MG TAB PO SCH ×2 (10:39→20:38)
[2019-10-16] MEDS: ASPIRIN 81 MG PO SCH (10:39)
[2019-10-16] MEDS: METOPROLOL TARTRATE 25 MG TAB PO SCH (10:39)
[2019-10-16] MEDS: methylPREDNISolone SOD SUCCI 40 MG/ML 1 ML VIAL IV SCH ×2 (11:07→20:37)
[2019-10-16] MEDS: INSULIN ASPART (NovoLOG) 100 UNIT/ML VIAL SQ SCH ×3 (11:08→20:37)
[2019-10-16] MEDS: amLODIPine 5 MG TAB PO SCH (11:08)
--- NOTE | 2019-10-16 11:42 | CT ---
EXAMINATION TYPE: CT chest wo/w con DATE OF EXAM: 10/16/2019 COMPARISON: 11/04/2016 HISTORY: cp, lactic acidosis and shortness of breath CT DLP: 2711 mGycm Automated exposure control for dose reduction was used. CONTRAST: CT scan of the chest is performed without and with IV Contrast, patient injected with 100 mL of Isovu e 300. FINDINGS: LUNGS: Right lower lobe infiltrate or atelectasis identified. Associated nodular density seen measuri ng 8.6 mm. Nodule is unchanged relative to the prior study. No additional nodules are evident. There is no pleural effusion or pneumothorax seen. The tracheobronchial tree is patent. MEDIASTINUM: There are no greater than 1 cm hilar or mediastinal lymph nodes. No pericardial effusi on is seen. Thoracic aorta is of normal caliber. The heart is not enlarged. Calcified hilar. UPPER ABDOMEN: Nonobstructing calculus mid pole right kidney. OTHER: No additional significant abnormality is seen. IMPRESSION: Right lower lobe infiltrate or atelectasis identified. Associated nodular density seen measuring 8.6 mm. Nodule is unchanged relative to the prior study.
[2019-10-16 12:58] LABS: Amphetamine Screen,Urine Not Detected (NotDetected); Barbiturate Screen,Urine Not Detected (NotDetected); Benzodiazepines Screen,Urine Not Detected (NotDetected); Cocaine Screen,Urine Not Detected (NotDetected); Methadone Screen, Urine Not Detected (NotDetected); Opiate Screen,Urine Not Detected (NotDetected); Phencyclidine Screen,Urine Not Detected (NotDetected); Tricyclic Antidepressant,Urine Not Detected (NotDetected); Urn Cannabinoid Scrn Not Detected (NotDetected)
[2019-10-16 12:59] LABS: Oxycodone Screen, Urine Not Detected (NotDetected)
--- NOTE | 2019-10-16 13:03 | P.CRDCN ---
History of Present Illness History of present illness: HISTORY OF PRESENTING ILLNESS This is a pleasant 59-year-old male past medical history significant for hypertension, dyslipidemia, diabetes mellitus, former nicotine dependence and morbid obesity. He denies prior history of coronary artery disease and does not follow in the office with a hematology nurse. We have been asked to see in consultation for chest pain. Patient is seen and examined resting comfortably laying flat in bed in no acute distress. He was seen in consultation last week secondary to elevated blood pressure and chest discomfort. At that time he was thought to be an acute asthma exacerbation. His medications were adjusted and he was recommended outpatient stress testing when his asthma improved. Yesterday he woke up and was walking to the restroom and he states both of his lower extremities felt extremely heavy he became short of breath and felt a ti ghtness in his entire torso. He states he checked his blood pressure at that time and it was extremely elevated. The symptoms were similar to how he felt on his previous admission. He does have a history of asthma and states this felt different than a typical asthma exacerbation. He's had no further symptoms of chest tightness since arrival in the hospital. On arrival his blood pressure is 143/91 and 127/80. EKG reveals sinus mechanism with no acute ST or T wave abnormalities noted. Chest x-ray is negative for an acute cardiopulmonary process. Laboratory data reviewed, WBC 13.2, hemoglobin 16.6, platelets 273, d- dimer 0.36, sodium 135, potassium 4.5, creatinine 0.79, magnesium 2.0, lactic acid 2.4, 2.2, 3.3 and 1.5, cardiac enzymes negative 3, NT proBNP 17, LDL 139, HDL 61 and total cholesterol 227. Currently maintained on lisinopril 10 mg twice a day and Lopressor 25 mg daily. Echocardiogram obtained 10/06/2019 reveals preserved LV systolic function with ejection fraction 55-60%. REVIEW OF SYSTEMS At the time of my exam: CONSTITUTIONAL: Denies fever or chills. CARDIOVASCULAR: Denies chest pain, shortness of breath, orthopnea, PND or palpitations. RESPIRATORY: Denies cough. GASTROINTESTINAL: Denies abdominal pain, diarrhea, constipation, nausea or vomiting. MUSCULOSKELETAL: Denies myalgias. NEUROLOGIC: Denies numbness, tingling or weakness. ENDOCRINE: Denies fatigue, weight change, polydipsia or polyurina. GENITOURINARY: Denies burning, hematuria or urgency with micturation. HEMATOLOGIC: Denies history of anemia or bleeding. PHYSICAL EXAMINATION Blood pressure 143/86 heart rate 96 afebrile and maintaining oxygen saturation on nasal cannula. CONSTITUTIONAL: No apparent distress. HEENT: Head is normocephalic. Pupils are equal, round. Sclerae anicteric. Mucous membranes of the mouth are moist. No JVD. No carotid bruit. CHEST EXAMINATION: Lungs are clear to auscultation. No chest wall tenderness is noted on palpation or with deep breathing. HEART EXAMINATION: Regular rate and rhythm. S1, S2 heard. No murmurs, gallops or rub. ABDOMEN: Soft, nontender. Positive bowel sounds. EXTREMITIES: 2+ peripheral pulses, no lower extremity edema and no calf ten derness. NEUROLOGIC EXAMINATION: Patient is awake, alert and oriented x3. ASSESSMENT Chest pain, an acute coronary event has been ruled out Lactic acidosis Hypertension Dyslipidemia, statin intolerant Diabetes mellitus Morbid obesity, BMI 48 Former nicotine dependence PLAN An acute coronary event has been ruled out. Obtain CT of the chest with and without contrast. Decrease aspirin to 81 mg daily. Continue lopressor and lisinopril as previously ordered. Continue to observe the patient and assess for ongoing symptoms of chest discomfort. Blood cultures are pending. Consider cardiac catheterization if he has further symptoms of chest discomfort. Thank you kindly for this consultation. Nurse Practitioner note has been reviewed, I agree with a documented findings and plan of care. Patient was seen and examined. Past Medical History Past Medical History: Asthma, Hyperlipidemia, Hypertension, Osteoarthritis (OA) Additional Past Medical History / Comment(s): Persistent asthma, NIDDM II- arthritis R knee, L ankle sprain History of Any Multi-Drug Resistant Organisms: None Reported Past Surgical History: Hernia Repair Additional Past Surgical History / Comment(s): Umbilical hernia repair Past Anesthesia/Blood Transfusion Reactions: Motion Sickness Past Psychological History: No Psychological Hx Reported Additional Psychological History / Comment(s): Pt resides in a home and his brother lives on the other side of this home. He has a glucometer. He has a nebulizer. 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 Father History Unknown: Yes Family Medical History: GI Bleed Additional Family Medical History / Comment(s): Father around age 50 from a bleeding ulcer. Brother(s) Family Medical History: No Reported History Additional Family Medical History / Comment(s): The patient has 2 brothers and one from pneumonia at age 59, 1 is alive with history of bariatric surgery. Sister(s) Family Medical History: No Reported History Additional Family Medical History / Comment(s): Patient has 2 sisters and one h as history of gallbladder disease. Daughter(s) Family Medical History: Unable to Obtain Additional Family Medical History / Comment(s): Patient has one daughter with no major medical problems. Son(s) Additional Family Medical History / Comment(s): Patient has 2 sons and one has hypertension. Medications and Allergies Home Medications Medication Instructions Recorded Confirmed Type Albuterol Sulfate [Proair Hfa] 2 puff INHALATION RT-QID PRN 05/18/18 10/15/19 History Montelukast Sodium [Singulair] 10 mg PO DAILY 05/18/18 10/15/19 History Acetaminophen [Tylenol Arthritis] 650 mg PO TID PRN 10/06/19 10/15/19 History Lisinopril [Prinivil] 10 mg PO BID #60 tab 10/07/19 10/15/19 Rx Pantoprazole [Protonix] 40 mg PO AC-BRKFST #30 tablet. 10/07/19 10/15/19 Rx metFORMIN HCL [Glucophage] 850 mg PO W/BRKFST #30 tab 10/07/19 10/15/19 Rx Doxycycline [Vibramycin] 100 mg PO BID 7 Days #14 capsule 10/08/19 10/15/19 Rx Budesonide-Formot 160-4.5 Mcg 2 puff INHALATION RT-BID 10/09/19 10/15/19 History [Symbicort 160-4.5 Mcg Inhaler] predniSONE See Taper PO DAILY 10/09/19 10/15/19 History Albuterol Nebulized [Ventolin 2.5 mg INHALATION RT-QID PRN 10/15/19 10/15/19 History Nebulized] Ipratropium-Albuterol Nebulize 3 ml INHALATION RT-TID PRN 10/15/19 10/15/19 History [Duoneb 0.5 mg-3 mg/3 ml Soln] Metoprolol Tartrate [Lopressor] 25 mg PO DAILY@1200 10/15/19 10/15/19 History Allergies Allergy/AdvReac Type Severity Reaction Status Date / Time Kzxareh-Bki-Dkr Reductase AdvReac MU Verified 10/15/19 22:53 Inhibitor Physical Exam Vitals: Vital Signs Temp Pulse Pulse Resp BP BP Pulse Ox 10/16/19 07:40 84 10/16/19 07:30 97.6 F 95 18 151/97 97 10/16/19 07:29 88 10/16/19 04:50 76 10/16/19 04:41 80 10/16/19 04:00 98.2 F 86 18 131/85 97 10/15/19 23:30 98.2 F 76 18 132/78 98 10/15/19 21:27 98.4 F 67 18 131/89 97 10/15/19 20:20 94 18 121/78 98 10/15/19 18:52 88 18 127/80 97 10/15/19 17:39 90 10/15/19 17:28 93 10/15/19 16:19 98.2 F 95 19 143/91 94 L Intake and Output 10/15/19 10/16/19 10/16/19 22:59 06:59 14:59 Other: # Voids 1 Weight 145.15 kg 147.3 kg Results 10/15/19 16:30 10/15/19 16:30 Cardiac Enzymes 10/15/19 10/15/19 10/15/19 Range/Units 16:30 16:30 19:42 AST 20 (17-59) U/L Troponin I <0.012 0.012 (0.000-0.034) ng/mL 10/16/19 10/16/19 Range/Units 02:18 07:22 AST (17-59) U/L Troponin I <0.012 <0.012 (0.000-0.034) ng/mL Coagulation 10/15/19 Range/Units 16:30 PT 9.5 (9.0-12.0) sec APTT 22.0 (22.0-30.0) sec Lipids 10/16/19 Range/Units 07:22 Triglycerides 134 (<150) mg/dL Cholesterol 227 H (<200) mg/dL HDL Cholesterol 61 H (40-60) mg/dL CBC 10/15/19 Range/Units 16:30 WBC 13.2 H (3.8-10.6) k/uL RBC 5.29 (4.30-5.90) m/uL Hgb 16.6 (13.0-17.5) gm/dL Hct 49.8 (39.0-53.0) % Plt Count 273 (150-450) k/uL Comprehensive Metabolic Panel 10/15/19 Range/Units 16:30 Sodium 135 L (137-145) mmol/L Potassium 4.5 (3.5-5.1) mmol/L Chloride 103 (98-107) mmol/L Carbon Dioxide 24 (22-30) mmol/L BUN 19 (9-20) mg/dL Creatinine 0.79 (0.66-1.25) mg/dL Glucose 188 H (74-99) mg/dL Calcium 9.1 (8.4-10.2) mg/dL AST 20 (17-59) U/L ALT 17 (4-49) U/L Alkaline Phosphatase 62 (38-126) U/L Total Protein 6.0 L (6.3-8.2) g/dL Albumin 3.7 (3.5-5.0) g/dL Current Medications Generic Name Dose Route Start Last Admin Trade Name Freq PRN Reason Stop Dose Admin Albuterol/Ipratropium 3 ml 10/16/19 04:32 10/16/19 07:29 Duoneb 0.5 Mg-3 Mg/3 Ml Soln INHALATION 3 ml RT-QID PRN Administration Shortness Of Breath Or Wheezing Aspirin 325 mg 10/16/19 09:00 Aspirin PO DAILY INGRID Sodium Chloride 1,000 mls @ 125 mls/hr 10/16/19 03:45 10/16/19 07:06 Saline 0.9% IV 125 mls/hr .Q8H INGRID Administration Naloxone HCl 0.2 mg 10/15/19 19:42 Narcan IV Q2M PRN Opioid Reversal Nitroglycerin 0.4 mg 10/15/19 19:44 Nitrostat SUBLINGUAL Q5M PRN Chest Pain Intake and Output 10/15/19 10/16/19 10/16/19 22:59 06:59 14:59 Other: # Voids 1 Weight 145.15 kg 147.3 kg 10/15/19 16:30 10/15/19 16:30
--- NOTE | 2019-10-16 14:49 | P.HPIM ---
History of Present Illness H&P Date: 10/16/19 Chief Complaint: chest pain This is a 59-year-old male one of Dr. Zamora and Dr. PATIENCE Griffith with a previous medical history significant for mild persistent asthma, hypertension and hypertensive cardio vascular disease, hyperlipidemia, psoriatic arthritis, morbid obesity hypoventilation syndrome, and diagnosed to have sleep apnea, and is being worked up for CPAP studies . Patient was admitted August 29 for pneumonia and discharged on antibiotics and nebulizer treatment. Patient was subsequently admitted again in September for chest pain atypical and mild persistent asthma with exacerbation. Patient was discharged home in stable condition. Patient complains of increase difficulty breathing along with cough with a tickly feeling in his throat. Patient also complains of chest pain when he was walking to the bathroom. He felt some heaviness and shortness of breath along with tightness. Patient states he has not been taking metformin as was advised at the time of discharge. Patient came into [facility] emergency center for evaluation. On arrival his blood pressure is 143/91 and 127/80. EKG reveals sinus mechanism with no acute ST or T wave abnormalities noted. Chest x-ray is negative for an acute cardiopulmonary process. Laboratory data reviewed, WBC 13.2, hemoglobin 16.6, platelets 273, d-dimer 0.36, sodium 135, potassium 4.5, creatinine 0.79, magnesium 2.0, lactic acid 2.4, 2.2, 3.3 and 1.5, cardiac enzymes negative 3, NT proBNP 17, LDL 139, HDL 61 and total cholesterol 227. Currently maintained on lisinopril 10 mg twice a day and Lopressor 25 mg daily. Echocardiogram obtained 10/06/2019 reveals preserved LV systolic function with ejection fraction 55-60%. Patient placed on the observation unit and has been seen by cardiology. CAT scan of the chest ordered. Review of Systems Constitutional: Denies chills, Denies fatigue, Denies fever, Denies poor appetite, Denies weight loss Eyes: denies blurred vision, denies pain Ears, nose, mouth and throat: Denies dysphagia, Denies headache, Denies nasal congestion, Denies nasal discharge, Denies sore throat, Denies vertigo Cardiovascular: Reports chest pain, Reports dyspnea on exertion, Denies shortness of breath Respiratory: Reports cough, Reports cough with sputum, Reports dyspnea, Reports sleep apnea, Reports wheezing, Denies excessive sputum, Denies hemoptysis, Denies home oxygen Gastrointestinal: Denies abdominal pain, Denies diarrhea, Denies loss of appetite, Denies nausea, Denies vomiting Genitourinary: Denies dysuria, Denies urinary retention Musculoskeletal: Denies frequent falls, Denies gait dysfunction, Denies muscle weakness, Denies myalgias Integumentary: Denies pruritus, Denies rash, Denies wounds Neurological: Denies change in mentation, Denies change in speech, Denies numbness, Denies seizures, Denies weakness Psychiatric: Denies anxiety, Denies depression Endocrine: Denies fatigue, Denies weight change Past Medical History Past Medical History: Asthma, Hyperlipidemia, Hypertension, Osteoarthritis (OA) Additional Past Medical History / Comment(s): Persistent asthma, NIDDM II- arthritis R knee, L ankle sprain History of Any Multi-Drug Resistant Organisms: None Reported Past Surgical History: Hernia Repair Additional Past Surgical History / Comment(s): Umbilical hernia repair Past Anesthesia/Blood Transfusion Reactions: Motion Sickness Past Psychological History: No Psychological Hx Reported Additional Psychological History / Comment(s): Pt resides in a home and his brother lives on the other side of this home. He has a glucometer. He has a nebulizer. 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 Father History Unknown: Yes Family Medical History: GI Bleed Additional Family Medical History / Comment(s): Father around age 50 from a bleeding ulcer. Brother(s) Family Medical History: No Reported History Additional Family Medical History / Comment(s): The patient has 2 brothers and one from pneumonia at age 59, 1 is alive with history of bariatric surgery. Sister(s) Family Medical History: No Reported History Additional Family Medical History / Comment(s): Patient has 2 sisters and one has history of gallbladder disease. Daughter(s) Family Medical History: Unable to Obtain Additional Family Medical History / Comment(s): Patient has one daughter with no major medical problems. Son(s) Additional Family Medical History / Comment(s): Patient has 2 sons and one has hypertension. Medications and Allergies Home Medications Medication Instructions Recorded Confirmed Type Albuterol Sulfate [Proair Hfa] 2 puff INHALATION RT-QID PRN 05/18/18 10/15/19 History Montelukast Sodium [Singulair] 10 mg PO DAILY 05/18/18 10/15/19 History Acetaminophen [Tylenol Arthritis] 650 mg PO TID PRN 10/06/19 10/15/19 History Lisinopril [Prinivil] 10 mg PO BID #60 tab 10/07/19 10/15/19 Rx Pantoprazole [Protonix] 40 mg PO AC-BRKFST #30 tablet. 10/07/19 10/15/19 Rx metFORMIN HCL [Glucophage] 850 mg PO W/BRKFST #30 tab 10/07/19 10/15/19 Rx Doxycycline [Vibramycin] 100 mg PO BID 7 Days #14 capsule 10/08/19 10/15/19 Rx Budesonide-Formot 160-4.5 Mcg 2 puff INHALATION RT-BID 10/09/19 10/15/19 History [Symbicort 160-4.5 Mcg Inhaler] predniSONE See Taper PO DAILY 10/09/19 10/15/19 History Albuterol Nebulized [Ventolin 2.5 mg INHALATION RT-QID PRN 10/15/19 10/15/19 History Nebulized] Ipratropium-Albuterol Nebulize 3 ml INHALATION RT-TID PRN 10/15/19 10/15/19 History [Duoneb 0.5 mg-3 mg/3 ml Soln] Metoprolol Tartrate [Lopressor] 25 mg PO DAILY@1200 10/15/19 10/15/19 History Allergies Allergy/AdvReac Type Severity Reaction Status Date / Time Tvhiqgx-Wpu-Ftu Reductase AdvReac MU Verified 10/15/19 22:53 Inhibitor Physical Exam Vitals: Vital Signs Temp Pulse Pulse Resp BP BP Pulse Ox 10/16/19 10:42 92 10/16/19 08:00 18 10/16/19 07:40 84 10/16/19 07:30 97.6 F 95 18 151/97 97 10/16/19 07:29 88 10/16/19 04:50 76 10/16/19 04:41 80 10/16/19 04:00 98.2 F 86 18 131/85 97 10/15/19 23:30 98.2 F 76 18 132/78 98 10/15/19 21:27 98.4 F 67 18 131/89 97 10/15/19 20:20 94 18 121/78 98 10/15/19 18:52 88 18 127/80 97 10/15/19 17:39 90 10/15/19 17:28 93 10/15/19 16:19 98.2 F 95 19 143/91 94 L Intake and Output 10/15/19 10/16/19 10/16/19 22:59 06:59 14:59 Other: # Voids 1 Weight 145.15 kg 147.3 kg Gen: This is a morbidly obese 59-year-old male. He is resting in bed. He appears to be comfortable. No acute distress HEENT: Head is atraumatic, normocephalic. Pupils equal, round. Sclerae is anicteric. NECK: Supple. No JVD. No lymphadenopathy. No thyromegaly. LUNGS: Right lower lobe crackles. No intercostal retractions. HEART: Regular rate and rhythm. No murmur. ABDOMEN: Soft. Bowel sounds are present. No masses. No tenderness. EXTREMITIES: No pedal edema. No calf tenderness. Dorsalis pedis +2 bilaterally. NEUROLOGICAL: Patient is awake, alert and oriented x3. Cranial nerves 2 through 12 are grossly intact. Results CBC & Chem 7: 10/15/19 16:30 10/15/19 16:30 Labs: Abnormal Lab Results - Last 24 Hours (Table) 10/15/19 10/15/19 10/15/19 Range/Units 16:30 16:30 16:30 WBC 13.2 H (3.8-10.6) k/uL Neutrophils # 11.5 H (1.3-7.7) k/uL Sodium 135 L (137-145) mmol/L Glucose 188 H (74-99) mg/dL Plasma Lactic Acid Jorge 2.4 H* (0.7-2.0) mmol/L Total Protein 6.0 L (6.3-8.2) g/dL Cholesterol (<200) mg/dL LDL Cholesterol, Calc (0-99) mg/dL HDL Cholesterol (40-60) mg/dL 10/15/19 10/16/19 10/16/19 Range/Units 20:36 00:55 07:22 WBC (3.8-10.6) k/uL Neutrophils # (1.3-7.7) k/uL Sodium (137-145) mmol/L Glucose (74-99) mg/dL Plasma Lactic Acid Jorge 2.2 H* 3.3 H* (0.7-2.0) mmol/L Total Protein (6.3-8.2) g/dL Cholesterol 227 H (<200) mg/dL LDL Cholesterol, Calc 139 H (0-99) mg/dL HDL Cholesterol 61 H (40-60) mg/dL Thrombosis Risk Factor Assmnt - DVT/VTE Prophylaxis DVT/VTE Prophylaxis: Pharmacologic Prophylaxis ordered - Choose All That Apply Any of the Below Risk Factors Present?: Yes Each Factor Represents 1 point: Age 41-60 years, Obesity (BMI >25) Thrombosis Risk Factor Assessment Total Risk Factor Score: 2 Thrombosis Risk Factor Assessment Level: Low Risk Assessment and Plan Plan: 1. Chest pain. Rule out acute coronary syndrome. Repeat troponins, cardiology consult appreciated. Continue aspirin 81 mg daily, Lopressor 25 mg daily. 2. Lactic acidosis of unclear etiology. CAT scan of the chest ordered. 3. Recent treatment for pneumonia in August and asthma exacerbation in September.. 4. Hypertension. 5. Hyperlipidemia unable to tolerate statin. 6. Morbid obesity with BMI of 48. 7. Obstructive sleep apnea currently without CPAP but undergoing studies. 8. Generalized osteoarthritis. 9. Mild persistent asthma with exacerbation. Continue doxycycline 100 mg twice daily, Symbicort twice daily, DuoNeb treatments 4 times daily as needed, Solu- Medrol 40 mg every 12 hours, Singulair 10 mg daily. 10. Gastroesophageal reflux disease and GI prophylaxis. Protonix. 11. DVT prophylaxis. Heparin subcu. Patient placed as an observation status. Discharge plan: Home Impression and plan of care have been directed as dictated by the signing physician. Kiley Diaz nurse practitioner acting as scribe for signing physician.
[2019-10-16 16:51] LABS: Glucose,Whole Blood 158 mg/dL (75-99)
[2019-10-16] MEDS: SYMBICORT 160-4.5 MCG INHALER INHALATION SCH (20:07)
[2019-10-16 20:13] LABS: Glucose,Whole Blood 165 mg/dL (75-99)
[2019-10-16] MEDS: DOXYCYCLINE 100 MG CAP PO SCH (20:37)
[2019-10-17] MEDS: SODIUM CHLORIDE 0.9% 1,000 ML IV SCH ×3 (04:07→21:09)
[2019-10-17 06:55] LABS: Glucose,Whole Blood 120 mg/dL (75-99)
[2019-10-17] MEDS: IPRATROPIUM-ALBUTEROL 3 ML NEB INHALATION PRN ×2 (07:12→23:35)
[2019-10-17] MEDS: SYMBICORT 160-4.5 MCG INHALER INHALATION SCH (07:12)
[2019-10-17] MEDS: INSULIN ASPART (NovoLOG) 100 UNIT/ML VIAL SQ SCH ×4 (08:13→21:10)
--- NOTE | 2019-10-17 09:50 | P.PN ---
Subjective Progress Note Date: 10/17/19 Principal diagnosis: Chest pain/shortness of breath This is a very pleasant 59 year old gentleman with a past medical history significant for diabetes, hypertension, and dyslipidemia, as well as obesity, was admitted to the hospital with a chest discomfort as well as shortness of breath. He was ruled out for acute coronary event. The patient was seen today, October [id number]. He is not doing well overall. He is in mild respiratory distress. On examination he is wheezing bilaterally. Also he is experiencing pain in the throat. He is feeling warm as well. The temperature is not elevated. I am going to obtain a chest x-ray on him. Also will obtain a BMP. Currently he is not in any chest pain or chest discomfort. Please note that lactic acid was checked yesterday and came in to be slightly abnormal. He just received a breathing treatment. Objective - Vital Signs Vital signs: Vital Signs Temp 98.3 F 10/17/19 08:00 Pulse 128 H 10/17/19 08:00 Resp 19 10/17/19 08:00 BP 137/85 10/17/19 08:00 Pulse Ox 95 10/17/19 08:00 Intake & Output 10/16/19 10/17/19 10/17/19 18:59 06:59 18:59 Intake Total 0 Balance 0 Intake: Intake, IV Titration 0 Amount Sodium Chloride 0.9% 1, 0 000 ml @ 125 mls/hr IV . Q8H [facility] Rx#:[id number] Other: Voiding Method Toilet Toilet - Constitutional General appearance: Present: no acute distress - Respiratory Respiratory: bilateral: wheezing - Cardiovascular Rhythm: regular Heart sounds: normal: S1, S2 - Labs CBC & Chem 7: 10/15/19 16:30 10/15/19 16:30 Labs: Abnormal Lab Results - Last 24 Hours (Table) 10/16/19 10/16/19 10/17/19 Range/Units 16:49 20:11 06:53 POC Glucose (mg/dL) 158 H 165 H 120 H (75-99) mg/dL Microbiology - Last 24 Hours (Table) 10/15/19 16:40 Blood Culture - Preliminary Blood No Growth after 24 hours Assessment and Plan Assessment: Assessment #1 chest discomfort, the patient is chest pain-free at this point #2 mild respiratory distress. Rule out asthma exacerbation/COPD exacerbation #3 possible upper respiratory infection #4 multiple comorbid conditions Plan #1 I would hold on any invasive approach at this point #2 obtain a chest x-ray #3 obtain a BNP #4 follow-up with the patient
[2019-10-17] MEDS ORDERED: ACETAMINOPHEN TAB 325 MG TAB PO PRN (10:00)
[2019-10-17] MEDS ORDERED: VANCOMYCIN IV PER PHARMACY 1 EACH MISC MISCELLANE PRN (10:06)
[2019-10-17] MEDS: METOPROLOL TARTRATE 25 MG TAB PO SCH ×3 (10:13→21:13)
[2019-10-17] MEDS: PANTOPRAZOLE 40 MG TABLET PO SCH (10:13)
[2019-10-17] MEDS: LISINOPRIL 10 MG TAB PO SCH ×2 (10:13→23:36)
[2019-10-17] MEDS: amLODIPine 5 MG TAB PO SCH (10:13)
[2019-10-17] MEDS: ASPIRIN 81 MG PO SCH (10:13)
[2019-10-17] MEDS: MONTELUKAST 10 MG TAB PO SCH (10:13)
[2019-10-17] MEDS ORDERED: PIPERACILLIN-TAZOBACTAM 3.375 GM in SODIUM CHLORIDE 0.9% 100 ML IVPB SCH (10:15)
[2019-10-17] MEDS: methylPREDNISolone SOD SUCCI 40 MG/ML 1 ML VIAL IV SCH (10:16)
[2019-10-17] MEDS: IPRATROPIUM-ALBUTEROL 3 ML NEB INHALATION SCH ×3 (10:17→19:57)
[2019-10-17] MEDS ORDERED: VANCOMYCIN 2,000 MG in SODIUM CHLORIDE 0.9% 500 ML 500 ML IVPB SCH (11:00)
--- NOTE | 2019-10-17 11:10 | XR ---
EXAMINATION TYPE: XR chest 2V DATE OF EXAM: 10/17/2019 HISTORY: dyspnea. REFERENCE: Previous study dated 10/15/2019. FINDINGS: Lung volumes are prominent. There is a developing infiltrate in the right lower lobe. The l eft lung is clear. The heart is not enlarged. Pleural spaces are clear. IMPRESSION: 1. COPD. 2. INTERVAL DEVELOPMENT OF A RIGHT LOWER LOBE INFILTRATE.
--- NOTE | 2019-10-17 11:16 | P.HPIM ---
History of Present Illness H&P Date: 10/17/19 This is a 59-year-old male one of Dr. Zamora and Dr. PATIENCE Griffith with a previous medical history significant for mild persistent asthma, hypertension and hypertensive cardio vascular disease, hyperlipidemia, psoriatic arthritis, morbid obesity hypoventilation syndrome, and diagnosed to have sleep apnea, and is being worked up for CPAP studies . Patient was admitted August 29 for pneumonia and discharged on antibiotics and nebulizer treatment. Patient was subsequently admitted again in September for chest pain atypical and mild persistent asthma with exacerbation. Patient was discharged home in stable condition. Patient complains of increase difficulty breathing along with cough with a tickly feeling in his throat. Patient also complains of chest pain when he was walking to the bathroom. He felt some heaviness and shortness of breath along with tightness. Patient states he has not been taking metformin as was advised at the time of discharge. Patient came into [facility] emergency center for evaluation. On arrival his blood pressure is 143/91 and 127/80. EKG reveals sinus mechanism with no acute ST or T wave abnormalities noted. Chest x-ray is negative for an acute cardiopulmonary process. Laboratory data reviewed, WBC 13.2, hemoglobin 16.6, platelets 273, d-dimer 0.36, sodium 135, potassium 4.5, creatinine 0.79, magnesium 2.0, lactic acid 2.4, 2.2, 3.3 and 1.5, cardiac enzymes negative 3, NT proBNP 17, LDL 139, HDL 61 and total cholesterol 227. Currently maintained on lisinopril 10 mg twice a day and Lopressor 25 mg daily. Echocardiogram o btained 10/06/2019 reveals preserved LV systolic function with ejection fraction 55-60%. Patient placed on the observation unit and has been seen by cardiology. CAT scan of the chest ordered. 10/17: The patient developed significant respiratory distress today with fever 102, heart rate of 140. CAT scan of the chest done yesterday showed a right lower lobe infiltrate or pneumonia. And patient was started on Zosyn and vancomycin this morning. Influenza came back positive for influenza A and patient has been started on Tamiflu. The patient complains of some phlegm production. Consult added for Dr. PATIENCE Griffith and patient will be transferred to the cardiac stepdown unit with cardiac monitoring. Cardiology is not planning for any heart catheterization at this point. BNP ordered. Review of Systems Constitutional: Reports chills, Denies fatigue, reports fever, Denies poor appetite, Denies weight loss Eyes: denies blurred vision, denies pain Ears, nose, mouth and throat: Denies dysphagia, Denies headache, Denies nasal congestion, Denies nasal discharge, Denies sore throat, Denies vertigo Cardiovascular: Reports chest pain, Reports dyspnea on exertion, reports shortn ess of breath Respiratory: Reports cough, Reports cough with sputum, Reports dyspnea, Reports sleep apnea, Reports wheezing, Denies excessive sputum, Denies hemoptysis, Denies home oxygen Gastrointestinal: Denies abdominal pain, Denies diarrhea, Denies loss of appetite, Denies nausea, Denies vomiting Genitourinary: Denies dysuria, Denies urinary retention Musculoskeletal: Denies frequent falls, Denies gait dysfunction, Denies muscle weakness, Denies myalgias Integumentary: Denies pruritus, Denies rash, Denies wounds Neurological: Denies change in mentation, Denies change in speech, Denies numbness, Denies seizures, Denies weakness Psychiatric: Denies anxiety, Denies depression Endocrine: Denies fatigue, Denies weight change Past Medical History Past Medical History: Asthma, Hyperlipidemia, Hypertension, Osteoarthritis (OA) Additional Past Medical History / Comment(s): Persistent asthma, NIDDM II- arthritis R knee, L ankle sprain History of Any Multi-Drug Resistant Organisms: None Reported Past Surgical History: Hernia Repair Additional Past Surgical History / Comment(s): Umbilical hernia repair Past Anesthesia/Blood Transfusion Reactions: Motion Sickness Past Psychological History: No Psychological Hx Reported Additional Psychological History / Comment(s): Pt resides in a home and his brother lives on the other side of this home. He has a glucometer. He has a ne bulizer. 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 Father History Unknown: Yes Family Medical History: GI Bleed Additional Family Medical History / Comment(s): Father around age 50 from a bleeding ulcer. Brother(s) Family Medical History: No Reported History Additional Family Medical History / Comment(s): The patient has 2 brothers and one from pneumonia at age 59, 1 is alive with history of bariatric surgery. Sister(s) Family Medical History: No Reported History Additional Family Medical History / Comment(s): Patient has 2 sisters and one has history of gallbladder disease. Daughter(s) Family Medical History: Unable to Obtain Additional Family Medical History / Comment(s): Patient has one daughter with no major medical problems. Son(s) Additional Family Medical History / Comment(s): Patient has 2 sons and one has hypertension. Medications and Allergies Home Medications Medication Instructions Recorded Confirmed Type Albuterol Sulfate [Proair Hfa] 2 puff INHALATION RT-QID PRN 05/18/18 10/15/19 History Montelukast Sodium [Singulair] 10 mg PO DAILY 05/18/18 10/15/19 History Acetaminophen [Tylenol Arthritis] 650 mg PO TID PRN 10/06/19 10/15/19 History Lisinopril [Prinivil] 10 mg PO BID #60 tab 10/07/19 10/15/19 Rx Pantoprazole [Protonix] 40 mg PO AC-BRKFST #30 tablet. 10/07/19 10/15/19 Rx metFORMIN HCL [Glucophage] 850 mg PO W/BRKFST #30 tab 10/07/19 10/15/19 Rx Doxycycline [Vibramycin] 100 mg PO BID 7 Days #14 capsule 10/08/19 10/15/19 Rx Budesonide-Formot 160-4.5 Mcg 2 puff INHALATION RT-BID 10/09/19 10/15/19 History [Symbicort 160-4.5 Mcg Inhaler] predniSONE See Taper PO DAILY 10/09/19 10/15/19 History Albuterol Nebulized [Ventolin 2.5 mg INHALATION RT-QID PRN 10/15/19 10/15/19 History Nebulized] Ipratropium-Albuterol Nebulize 3 ml INHALATION RT-TID PRN 10/15/19 10/15/19 History [Duoneb 0.5 mg-3 mg/3 ml Soln] Metoprolol Tartrate [Lopressor] 25 mg PO DAILY@1200 10/15/19 10/15/19 History Allergies Allergy/AdvReac Type Severity Reaction Status Date / Time [id number]-[id number] Reductase AdvReac MU Verified 10/15/19 22:53 Inhibitor Physical Exam Vitals: Vital Signs Temp Pulse Pulse Pulse Resp BP BP 10/17/19 10:30 155 H 10/17/19 10:20 148 H 10/17/19 08:00 98.3 F 128 H 19 137/85 10/17/19 07:27 96 10/17/19 07:13 104 H 10/17/19 04:00 98.3 F 103 H 18 127/73 10/17/19 00:00 98.8 F 98 18 138/79 10/16/19 20:19 80 16 10/16/19 20:07 82 16 10/16/19 20:00 92 16 10/16/19 19:42 98.3 F 92 18 117/76 10/16/19 16:49 84 16 10/16/19 16:39 88 16 10/16/19 16:00 98.5 F 88 18 138/73 10/16/19 12:00 18 10/16/19 11:30 98.5 F 96 18 143/86 Pulse Ox 10/17/19 10:30 10/17/19 10:20 10/17/19 08:00 95 10/17/19 07:27 10/17/19 07:13 10/17/19 04:00 94 L 10/17/19 00:00 94 L 10/16/19 20:19 10/16/19 20:07 10/16/19 20:00 10/16/19 19:42 95 10/16/19 16:49 10/16/19 16:39 93 L 10/16/19 16:00 88 L 10/16/19 12:00 10/16/19 11:30 95 Intake and Output 10/16/19 10/17/19 10/17/19 22:59 06:59 14:59 Intake Total 0 0 Balance 0 0 Intake: Intake, IV Titration 0 0 Amount Sodium Chloride 0.9% 1, 0 0 000 ml @ 125 mls/hr IV . Q8H [facility] Rx#:[id number] Other: Voiding Method Toilet Toilet Toilet Gen: This is a morbidly obese 59-year-old male. He is sitting on the edge of the bed with accessory muscle usage. HEENT: Head is atraumatic, normocephalic. Pupils equal, round. Sclerae is anicteric. NECK: Supple. No JVD. No lymphadenopathy. No thyromegaly. LUNGS: Right lower lobe crackles. No wheezing. Mild to moderate intercostal retractions. HEART: Regular rate and rhythm. No murmur. ABDOMEN: Soft. Bowel sounds are present. No masses. No tenderness. EXTREMITIES: No pedal edema. No calf tenderness. Dorsalis pedis +2 bilaterally. NEUROLOGICAL: Patient is awake, alert and oriented x3. Cranial nerves 2 through 12 are grossly intact. Results CBC & Chem 7: 10/15/19 16:30 10/15/19 16:30 Labs: Abnormal Lab Results - Last 24 Hours (Table) 10/16/19 10/16/19 10/17/19 Range/Units 16:49 20:11 06:53 POC Glucose (mg/dL) 158 H 165 H 120 H (75-99) mg/dL Influenza Type A RNA (Not Detectd) 10/17/19 Range/Units 10:05 POC Glucose (mg/dL) (75-99) mg/dL Influenza Type A RNA Detected H (Not Detectd) Microbiology - Last 24 Hours (Table) 10/15/19 16:40 Blood Culture - Preliminary Blood No Growth after 24 hours Thrombosis Risk Factor Assmnt - DVT/VTE Prophylaxis DVT/VTE Prophylaxis: Pharmacologic Prophylaxis ordered - Choose All That Apply Any of the Below Risk Factors Present?: Yes Each Factor Represents 1 point: Age 41-60 years, Obesity (BMI >25) Thrombosis Risk Factor Assessment Total Risk Factor Score: 2 Thrombosis Risk Factor Assessment Level: Low Risk Assessment and Plan Plan: 1. Chest pain. Rule out acute coronary syndrome. Cardiology consult appreciated. Continue aspirin 81 mg daily, Lopressor 25 mg daily. No plan for intervention at this time. 2. Acute hypoxic respiratory failure secondary to right lower lobe pneumonia and acute influenza. Continue oxygen therapy. Patient started on Zosyn and vancomycin, DuoNeb treatments changed to 4 times daily scheduled and as needed, continue Symbicort twice daily, Solu-Medrol 40 mg IV every 12 hours, consult with Dr. PATIENCE Griffith. Tamiflu started. 3. Lactic acidosis secondary to right lower lobe pneumonia. CAT scan of the chest as above. 4. Tachycardia secondary to fever. Continue Lopressor 25 mg twice daily Recent treatment for pneumonia in August and asthma exacerbation in September. 4. Hypertension. Continue Lopressor increased to 25 mg twice daily, lisinopril 10 mg twice daily. 5. Hyperlipidemia unable to tolerate statin. 6. Morbid obesity with BMI of 48. 7. Obstructive sleep apnea currently without CPAP but undergoing studies. 8. Generalized osteoarthritis. 9. Mild persistent asthma with exacerbation. Antibiotics changed to Zosyn and vancomycin, Symbicort twice daily, DuoNeb treatments 4 times daily as needed, Solu-Medrol 40 mg every 12 hours, Singulair 10 mg daily. Consult with Dr. PATIENCE Griffith. 10. Gastroesophageal reflux disease and GI prophylaxis. Protonix. 11. DVT prophylaxis. Heparin subcu. Patient admitted to the hospital for a minimum of 2 night stay. Discharge plan: Home Impression and plan of care have been directed as dictated by the signing physician. Kiley Diaz nurse practitioner acting as scribe for signing physician.
[2019-10-17] MEDS: OSELTAMIVIR 75 MG CAP PO SCH ×2 (11:30→21:13)
[2019-10-17 11:57] LABS: Glucose,Whole Blood 112 mg/dL (75-99)
[2019-10-17] MEDS: DOXYCYCLINE 100 MG CAP PO SCH (13:06)
--- NOTE | 2019-10-17 14:16 | CONS ---
CONSULTATION This patient is a 59-year-old male with a known history of severe asthma who presented to the ED on 10/16/2019. At that time he had been having increasing shortness of breath and diaphoresis. He was at his doctor's office and felt like a numbness that came across his chest and subsequently came to the emergency department via EMS. PAST MEDICAL HISTORY: Positive for severe allergic asthma, obstructive sleep apnea, type 2 diabetes, umbilical hernia repair, morbid obesity. SOCIAL HISTORY: Patient is a nonsmoker. Does not drink alcohol excessively. 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 FAMILY HISTORY: Positive for ovarian cancer in his mother. Father had history of an internal bleed and in his 30s. MEDICATIONS: Medications prior to admission include metformin, Protonix, Singulair, Lopressor, Prinivil, DuoNeb, Symbicort, Vibramycin, Proventil HFA, Ventolin nebulized, and Tylenol Arthritis. PHYSICAL EXAMINATION: He was lying in bed. His respiratory rate is 18, pulse rate of 116, temperature 101.5 degrees Fahrenheit. Oxygen saturation on 2 L by nasal cannula is 96%. HEENT reveals pupils that are equal. Chest reveals decreased breath sounds with prolonged exhalation and expiratory wheeze. Cardiovascular system is in S1, S2. Abdomen is soft. There is no pedal edema. White count is 13.2, hemoglobin of 16.6. Lactic acid was 2.2 on admission. Influenza type A is positive. Chest x-ray shows right lower zone infiltrate. IMPRESSION AT THIS TIME: 1. Severe persistent asthma with acute exacerbation. 2. Acute respiratory failure. 3. Right lower zone pneumonia. 4. Obesity. Continue antibiotic, Tamiflu, IV steroids, aerosolized steroids and bronchodilators. Keep him on GI and DVT prophylaxis. His prognosis at this time is fair. He was counseled regarding his condition and this approach. MMODL / IJN: [id number] /
[2019-10-17] MEDS: IBUPROFEN 600 MG TAB PO SCH ×2 (15:40→21:14)
[2019-10-17 16:35] LABS: Glucose,Whole Blood 204 mg/dL (75-99)
[2019-10-17] MEDS: methylPREDNISolone SOD SUCCI 125 MG/2 ML VIAL IV SCH ×2 (17:05→23:34)
[2019-10-17 20:26] LABS: Glucose,Whole Blood 168 mg/dL (75-99)
[2019-10-17] MEDS: PIPERACILLIN-TAZOBACTAM 3.375 GM in SODIUM CHLORIDE 0.9% 100 ML IVPB SCH (21:13)
[2019-10-17] MEDS: VANCOMYCIN 2,000 MG in SODIUM CHLORIDE 0.9% 500 ML 500 ML IVPB SCH (23:34)
[2019-10-18] MEDS: IPRATROPIUM-ALBUTEROL 3 ML NEB INHALATION PRN ×2 (03:33→23:24)
[2019-10-18] MEDS: PIPERACILLIN-TAZOBACTAM 3.375 GM in SODIUM CHLORIDE 0.9% 100 ML IVPB SCH ×3 (04:56→20:44)
[2019-10-18] MEDS: SODIUM CHLORIDE 0.9% 1,000 ML IV SCH ×3 (04:56→20:42)
[2019-10-18 06:18] LABS: HCT 44.8 % (39.0-53.0); HGB 14.6 gm/dL (13.0-17.5); MCH 31.1 pg (25.0-35.0); MCHC 32.6 g/dL (31.0-37.0); MCV 95.2 fL (80.0-100.0); Mean Platelet Volume 6.6; Platelet Count 226 k/uL (150-450); RDW 13.4 % (11.5-15.5)
[2019-10-18 06:20] LABS: Glucose,Whole Blood 175 mg/dL (75-99)
[2019-10-18 06:28] LABS: ALT 14 U/L (4-49); AST 17 U/L (17-59); African American GFR (CKD) >90 (>60 ml/min/1.73 sqM); Albumin 2.9 g/dL (3.5-5.0); Alkaline Phosphatase 50 U/L (38-126); Anion Gap 4 mmol/L; Blood Urea Nitrogen 21 mg/dL (9-20); Calcium 8.2 mg/dL (8.4-10.2); Carbon Dioxide 26 mmol/L (22-30); Chloride 105 mmol/L (98-107); Glucose 191 mg/dL (74-99); Non-African American GFR(CKD) >90 (>60 ml/min/1.73 sqM); Potassium 4.4 mmol/L (3.5-5.1); Sodium 135 mmol/L (137-145); Total Bilirubin 0.6 mg/dL (0.2-1.3); Total Protein 5.4 g/dL (6.3-8.2)
[2019-10-18] MEDS: PANTOPRAZOLE 40 MG TABLET PO SCH (06:31)
[2019-10-18] MEDS: INSULIN ASPART (NovoLOG) 100 UNIT/ML VIAL SQ SCH ×4 (06:31→21:13)
[2019-10-18] MEDS: methylPREDNISolone SOD SUCCI 125 MG/2 ML VIAL IV SCH ×3 (06:31→17:15)
[2019-10-18] MEDS: IPRATROPIUM-ALBUTEROL 3 ML NEB INHALATION SCH ×4 (08:38→20:06)
[2019-10-18] MEDS: METOPROLOL TARTRATE 25 MG TAB PO SCH (09:45)
[2019-10-18] MEDS: ASPIRIN 81 MG PO SCH (09:45)
[2019-10-18] MEDS: OSELTAMIVIR 75 MG CAP PO SCH ×2 (09:45→20:44)
[2019-10-18] MEDS: IBUPROFEN 600 MG TAB PO SCH ×2 (09:45→14:59)
[2019-10-18] MEDS: LISINOPRIL 10 MG TAB PO SCH ×2 (09:45→20:43)
[2019-10-18] MEDS: MONTELUKAST 10 MG TAB PO SCH (09:45)
[2019-10-18] MEDS: amLODIPine 5 MG TAB PO SCH (09:45)
--- NOTE | 2019-10-18 10:26 | P.PN ---
Subjective Progress Note Date: 10/18/19 This is a 59-year-old male one of Dr. Zamora and Dr. PATIENCE Griffith with a previous medical history significant for mild persistent asthma, hypertension and hypertensive cardio vascular disease, hyperlipidemia, psoriatic arthritis, morbid obesity hypoventilation syndrome, and diagnosed to have sleep apnea, and is being worked up for CPAP studies . Patient was admitted August 29 for pneumonia and discharged on antibiotics and nebulizer treatment. Patient was subsequently admitted again in September for chest pain atypical and mild persistent asthma with exacerbation. Patient was discharged home in stable condition. Patient complains of increase difficulty breathing along with cough with a tickly feeling in his throat. Patient also complains of chest pain when he was walking to the bathroom. He felt some heaviness and shortness of breath along with tightness. Patient states he has not been taking metformin as was advised at the time of discharge. Patient came into [facility] emergency center for evaluation. On arrival his blood pressure is 143/91 and 127/80. EKG reveals sinus mechanism with no acute ST or T wave abnormalities noted. Chest x-ray is negative for an acute cardiopulmonary process. Laboratory data reviewed, WBC 13.2, hemoglobin 16.6, platelets 273, d-dimer 0.36, sodium 135, potassium 4.5, creatinine 0.79, magnesium 2.0, lactic acid 2.4, 2.2, 3.3 and 1.5, cardiac enzymes negative 3, NT proBNP 17, LDL 139, HDL 61 and total cholesterol 227. Currently maintained on lisinopril 10 mg twice a day and Lopressor 25 mg daily. Echocardiogram obtained 10/06/2019 reveals preserved LV systolic function with ejection fraction 55-60%. Patient placed on the observation unit and has been seen by cardiology. CAT scan of the chest ordered. 10/17: The patient developed significant respiratory distress today with fever 102, heart rate of 140. CAT scan of the chest done yesterday showed a right lower lobe infiltrate or pneumonia. And patient was started on Zosyn and vancomycin this morning. Influenza came back positive for influenza A and patie nt has been started on Tamiflu. The patient complains of some phlegm production. Consult added for Dr. PATIENCE Griffith and patient will be transferred to the cardiac stepdown unit with cardiac monitoring. Cardiology is not planning for any heart catheterization at this point. BNP ordered. 2/23: Patient is seen today on the cardiac stepdown unit. Patient's breathing is much improved. His fever broke during the afternoon yesterday. Heart rate is currently controlled. Patient is refusing to take lisinopril due to his brother have any problem in the past with blood pressure medicine that he bibiana eves caused his . He denies having any chest pain. Patient has been seen by Dr. PATIENCE Griffith and continued on Solu-Medrol increased dose of 60 mg every 6 hours and IV antibiotics. Patient was started on Tamiflu yesterday and seems to be responding well. Repeat blood work reveals WBC 12.0, sodium 135, BUN 21 creatinine 0.73. Blood sugar running between 168 and 191. Patient will be transferred to the [facility] floor with telemetry. Anticipate discharge home on Saturday or Saturday. Objective - Vital Signs Vital signs: Vital Signs Temp 97.5 F L 10/18/19 04:00 Pulse 92 10/18/19 08:53 Resp 18 10/18/19 04:00 BP 144/82 10/18/19 04:00 Pulse Ox 99 10/18/19 04:00 Intake & Output 10/17/19 10/18/19 10/18/19 18:59 06:59 18:59 Intake Total 240 1600 240 Output Total 325 400 Balance -85 1200 240 Weight 145.5 kg Intake: Intake, IV Titration 1600 Amount Piperacillin-Tazobactam 3 100 .375 gm In Sodium Chloride 0.9% 100 ml @ 25 mls/hr IVPB Q8H [facility] Rx#: [id number] Sodium Chloride 0.9% 1, 1000 000 ml @ 125 mls/hr IV . Q8H [facility] Rx#:[id number] Vancomycin 2,000 mg In 500 Sodium Chloride 0.9% 500 ml 500 ml @ 167 mls/hr IVPB Q12H [facility] Rx#: [id number] Oral 240 240 Output: Urine 325 400 Other: Voiding Method Toilet Toilet Urinal # Voids 1 2 - Exam Review of Systems Constitutional: Denies chills, Denies fatigue, denies fever, Denies poor appetite, Denies weight loss Eyes: denies blurred vision, denies pain Ears, nose, mouth and throat: Denies dysphagia, Denies headache, Denies nasal congestion, Denies nasal discharge, Denies sore throat, Denies vertigo Cardiovascular: Denies chest pain, Reports dyspnea on exertion, denies shortness of breath Respiratory: Reports cough, Reports cough with sputum, denies dyspnea, Reports sleep apnea, denies wheezing, Denies excessive sputum, Denies hemoptysis, Denies home oxygen Gastrointestinal: Denies abdominal pain, Denies diarrhea, Denies loss of appetite, Denies nausea, Denies vomiting Genitourinary: Denies dysuria, Denies urinary retention Musculoskeletal: Denies frequent falls, Denies gait dysfunction, Denies muscle weakness, Denies myalgias Integumentary: Denies pruritus, Denies rash, Denies wounds Neurological: Denies change in mentation, Denies change in speech, Denies numbness, Denies seizures, Denies weakness Psychiatric: Denies anxiety, Denies depression Endocrine: Denies fatigue, Denies weight change Physical Examination Gen: This is a morbidly obese 59-year-old male. He is sitting on the edge of the bed with no accessory muscle usage. HEENT: Head is atraumatic, normocephalic. Pupils equal, round. Sclerae is anicteric. NECK: Supple. No JVD. No lymphadenopathy. No thyromegaly. LUNGS: No wheezing. No intercostal retractions. HEART: Regular rate and rhythm. No murmur. ABDOMEN: Soft. Bowel sounds are present. No masses. No tenderness. EXTREMITIES: No pedal edema. No calf tenderness. Dorsalis pedis +2 bilaterally. NEUROLOGICAL: Patient is awake, alert and oriented x3. Cranial nerves 2 through 12 are grossly intact. - Labs CBC & Chem 7: 10/18/19 05:47 10/18/19 05:47 Labs: Abnormal Lab Results - Last 24 Hours (Table) 10/17/19 10/17/19 10/17/19 Range/Units 10:05 11:56 16:33 WBC (3.8-10.6) k/uL Sodium (137-145) mmol/L BUN (9-20) mg/dL Glucose (74-99) mg/dL POC Glucose (mg/dL) 112 H 204 H (75-99) mg/dL Calcium (8.4-10.2) mg/dL Total Protein (6.3-8.2) g/dL Albumin (3.5-5.0) g/dL Influenza Type A RNA Detected H (Not Detectd) 10/17/19 10/18/19 10/18/19 Range/Units 20:20 05:47 05:47 WBC 12.0 H (3.8-10.6) k/uL Sodium 135 L (137-145) mmol/L BUN 21 H (9-20) mg/dL Glucose 191 H (74-99) mg/dL POC Glucose (mg/dL) 168 H (75-99) mg/dL Calcium 8.2 L (8.4-10.2) mg/dL Total Protein 5.4 L (6.3-8.2) g/dL Albumin 2.9 L (3.5-5.0) g/dL Influenza Type A RNA (Not Detectd) 10/18/19 Range/Units 06:13 WBC (3.8-10.6) k/uL Sodium (137-145) mmol/L BUN (9-20) mg/dL Glucose (74-99) mg/dL POC Glucose (mg/dL) 175 H (75-99) mg/dL Calcium (8.4-10.2) mg/dL Total Protein (6.3-8.2) g/dL Albumin (3.5-5.0) g/dL Influenza Type A RNA (Not Detectd) Microbiology - Last 24 Hours (Table) 10/15/19 16:40 Blood Culture - Preliminary Blood No Growth after 48 hours Assessment and Plan Plan: 1. Chest pain. Rule out acute coronary syndrome. Cardiology consult appreciated. Continue aspirin 81 mg daily, Lopressor 25 mg daily. No plan for intervention at this time. 2. Acute hypoxic respiratory failure secondary to right lower lobe pneumonia and acute influenza. Continue oxygen therapy. Continue Zosyn and vancomycin, Tamiflu, DuoNeb treatments changed to 4 times daily scheduled and as needed, continue Symbicort twice daily, Solu-Medrol 60 mg IV every 6 hours, consult with Dr. PATIENCE Griffith appreciated. 3. Lactic acidosis secondary to right lower lobe pneumonia. CAT scan of the chest as above. 4. Tachycardia secondary to fever. Continue Lopressor 25 mg twice daily. 4. Hypertension. Continue Lopressor 25 mg twice daily, lisinopril 10 mg twice daily. 5. Hyperlipidemia unable to tolerate statin. 6. Morbid obesity with BMI of 48. 7. Obstructive sleep apnea currently without CPAP but undergoing studies. 8. Generalized osteoarthritis. 9. Mild persistent asthma with exacerbation. Continue Zosyn and vancomycin, Symbicort twice daily, DuoNeb treatments 4 times daily as needed, Solu-Medrol 60 mg every 6 hours, Singulair 10 mg daily. Consult with Dr. PATIENCE phillips. 10. Gastroesophageal reflux disease and GI prophylaxis. Protonix. 11. DVT prophylaxis. Heparin subcu. Discharge plan: Home on Saturday or Saturday Impression and plan of care have been directed as dictated by the signing physician. Kiley Diaz nurse practitioner acting as scribe for signing physician.
[2019-10-18 11:27] LABS: Glucose,Whole Blood 193 mg/dL (75-99)
[2019-10-18] MEDS: VANCOMYCIN 2,000 MG in SODIUM CHLORIDE 0.9% 500 ML 500 ML IVPB SCH (11:38)
--- NOTE | 2019-10-18 12:15 | P.PN ---
Subjective Progress Note Date: 10/18/19 Principal diagnosis: Chest pain/shortness of breath This is a very pleasant 59 year old gentleman with a past medical history significant for diabetes, hypertension, and dyslipidemia, as well as obesity, was admitted to the hospital with a chest discomfort as well as shortness of breath. He was ruled out for acute coronary event. The patient was seen today, October 182019. He is doing better. The shortness of breath is better. It turned to be positive for influenza. No symptoms of chest pain or chest discomfort. When he was seen yesterday he was experiencing increasing in the shortness of breath and I didn't perform a BNP and a chest x-ray. The BNP came in to be within normal limits. The chest x-ray showed infiltrate consistent with possible pneumonia. Objective - Vital Signs Vital signs: Vital Signs Temp 97.6 F 10/18/19 08:00 Pulse 88 10/18/19 12:04 Resp 18 10/18/19 08:00 BP 148/91 10/18/19 08:00 Pulse Ox 94 L 10/18/19 08:00 Intake & Output 10/17/19 10/18/19 10/18/19 18:59 06:59 18:59 Intake Total 240 1600 240 Output Total 325 400 Balance -85 1200 240 Weight 145.5 kg Intake: Intake, IV Titration 1600 Amount Piperacillin-Tazobactam 3 100 .375 gm In Sodium Chloride 0.9% 100 ml @ 25 mls/hr IVPB Q8H [facility] Rx#: [id number] Sodium Chloride 0.9% 1, 1000 000 ml @ 125 mls/hr IV . Q8H [facility] Rx#:[id number] Vancomycin 2,000 mg In 500 Sodium Chloride 0.9% 500 ml 500 ml @ 167 mls/hr IVPB Q12H INGRID Rx#: [id number] Oral 240 240 Output: Urine 325 400 Other: Voiding Method Toilet Toilet Urinal # Voids 1 2 - Constitutional General appearance: Present: no acute distress - Respiratory Respiratory: bilateral: diminished - Cardiovascular Rhythm: regular Heart sounds: normal: S1, S2 - Labs CBC & Chem 7: 10/18/19 05:47 10/18/19 05:47 Labs: Abnormal Lab Results - Last 24 Hours (Table) 10/17/19 10/17/19 10/18/19 Range/Units 16:33 20:20 05:47 WBC 12.0 H (3.8-10.6) k/uL Sodium (137-145) mmol/L BUN (9-20) mg/dL Glucose (74-99) mg/dL POC Glucose (mg/dL) 204 H 168 H (75-99) mg/dL Calcium (8.4-10.2) mg/dL Total Protein (6.3-8.2) g/dL Albumin (3.5-5.0) g/dL 10/18/19 10/18/19 10/18/19 Range/Units 05:47 06:13 11:26 WBC (3.8-10.6) k/uL Sodium 135 L (137-145) mmol/L BUN 21 H (9-20) mg/dL Glucose 191 H (74-99) mg/dL POC Glucose (mg/dL) 175 H 193 H (75-99) mg/dL Calcium 8.2 L (8.4-10.2) mg/dL Total Protein 5.4 L (6.3-8.2) g/dL Albumin 2.9 L (3.5-5.0) g/dL Microbiology - Last 24 Hours (Table) 10/15/19 16:40 Blood Culture - Preliminary Blood No Growth after 48 hours Assessment and Plan Assessment: Assessment #1 chest discomfort, the patient is chest pain-free at this point #2 respiratory distress which has improved #3 pneumonia/influenza #4 morbid obesity Plan #1 continue the current medical regimen #2 rule out severe CAD, probably as an outpatient, if he is not having any chest pain or chest discomfort #3 follow-up with the patient
[2019-10-18 17:02] LABS: Glucose,Whole Blood 216 mg/dL (75-99)
--- NOTE | 2019-10-18 17:33 | PN ---
PROGRESS NOTE DATE OF SERVICE: 10/18/2019 Patient was seen on 10/18/2019. He has been hemodynamically stable. He continues to have shortness of breath. On physical examination, his respiratory rate is 18, pulse rate 99, temperature 98.5, blood pressure 137/83, O2 saturation on room air is 94%. HEENT is unremarkable. Chest reveals expiratory wheeze. Cardiovascular system is S1, S2. Abdomen is soft. There is no pedal edema. IMPRESSION: At this time is: 1. Asthma with acute exacerbation. 2. Influenza pneumonia. 3. Possible right-sided pneumonia. Continue antibiotics, antivirals, IV steroids and bronchodilators. His prognosis at this time is fair. MMODL / IJN: [id number] /
[2019-10-18 20:02] LABS: Glucose,Whole Blood 175 mg/dL (75-99)
[2019-10-19] MEDS: IBUPROFEN 600 MG TAB PO SCH ×4 (00:01→20:29)
[2019-10-19] MEDS: methylPREDNISolone SOD SUCCI 125 MG/2 ML VIAL IV SCH ×4 (00:02→17:10)
[2019-10-19] MEDS: VANCOMYCIN 2,000 MG in SODIUM CHLORIDE 0.9% 500 ML 500 ML IVPB SCH ×2 (00:04→11:49)
[2019-10-19] MEDS: METOPROLOL TARTRATE 25 MG TAB PO SCH ×3 (00:13→20:31)
[2019-10-19] MEDS: IPRATROPIUM-ALBUTEROL 3 ML NEB INHALATION PRN (03:05)
[2019-10-19] MEDS: SODIUM CHLORIDE 0.9% 1,000 ML IV SCH ×2 (03:23→11:11)
[2019-10-19] MEDS: PIPERACILLIN-TAZOBACTAM 3.375 GM in SODIUM CHLORIDE 0.9% 100 ML IVPB SCH ×3 (04:55→20:36)
[2019-10-19 07:18] LABS: Glucose,Whole Blood 155 mg/dL (75-99)
[2019-10-19] MEDS: IPRATROPIUM-ALBUTEROL 3 ML NEB INHALATION SCH ×4 (07:26→20:11)
[2019-10-19] MEDS: OSELTAMIVIR 75 MG CAP PO SCH ×2 (07:54→20:28)
[2019-10-19] MEDS: ASPIRIN 81 MG PO SCH (07:55)
[2019-10-19] MEDS: PANTOPRAZOLE 40 MG TABLET PO SCH (07:55)
[2019-10-19] MEDS: MONTELUKAST 10 MG TAB PO SCH (07:55)
[2019-10-19] MEDS: INSULIN ASPART (NovoLOG) 100 UNIT/ML VIAL SQ SCH ×4 (07:55→21:15)
[2019-10-19] MEDS: amLODIPine 5 MG TAB PO SCH (07:58)
[2019-10-19] MEDS: LISINOPRIL 10 MG TAB PO SCH ×2 (07:58→20:31)
--- NOTE | 2019-10-19 09:46 | CDI ---
Documentation Clarification Form Date: 10/19/2019 09:19:25 AM From: Shannan Meeks RN, CCDS Admit Date: 10/15/2019 07:50:00 PM Patient Name: Joni Brown Visit Number: [id number] Discharge Date: ATTENTION: The Clinical Documentation Specialists (CDI) and [facility] Coding Staff appreciate your assistance in clarifying documentation. Please respond to the clarification below the line at the bottom and electronically sign. The CDI & [facility] Coding staff will review the response and follow-up if needed. Please note: Queries are made part of the Legal Health Record. If you have any questions, please contact the author of this message via ITS. Dr. Syeda Mcgregor The patient presented to ED on 10/15 from doctor's office visit with complaints of shortness of breath and became diaphoretic while standing. History/Risk Factors: Persistent asthma, Clinical Indicators: 59-year-old male presenting to ED, he had an episode of diaphoresis and numbness over the chest he describes as a slight pressure, and shortness of breath. 10/15 EKG: No ST elevation or depressions. 10/15 Labs: WBC 13.2, Lactic acid 2.4, 2.2, Tropinion <0.012 10/15 Blood culture: Pending no growth after 72 hours 10/16 Lactic acid: 3.3 Vitals signs on admission: 10/15 143/91 95 19 Other Clinical Indicators: 20 Chest x-ray No acute pulmonary process; 10/16CT chest: Right lower lobe infiltrate or atelectasis identified. Treatment: Antibiotics: Vancomycin 2,000 mg IVPD Q 12, HRS, Zosyn IV Q 8HRS IV Bolus: .9 Saline 500 mls@125hr x2 Tamiflu 75 mg PO Q 12HRS In your professional opinion, please clarify if these findings signify one of the following conditions, whether the condition is POA, and cause, if known: Condition Sepsis ruled out Sepsis POA Other, please specify Unable to determine Identify the (suspected) organism_ Link or clarify if there is associated (due to/with): Organ failure Shock SIRS Criteria (2 or more of the following may indicate SIRS): -Temperature < 96.8F (36C) or > 101.0F (38.3C) -Heart Rate > 90 bpm -Respiratory Rate > 20 breaths/min or PaCO2 < 32 mmHg -White Blood Cell Count > 12,000 or < 4,000 cells/mm3 or > 10% bands -Lactate >2.0 mmol/L (>4.0 is equivalent to septic shock) (Last Revision: November 2017) MTDD
[2019-10-19 11:48] LABS: Glucose,Whole Blood 153 mg/dL (75-99)
--- NOTE | 2019-10-19 13:24 | P.PN ---
Subjective Progress Note Date: 10/19/19 This is a 59-year-old male one of Dr. Zamora and Dr. PATIENCE Griffith with a previous medical history significant for mild persistent asthma, hypertension and hypertensive cardio vascular disease, hyperlipidemia, psoriatic arthritis, morbid obesity hypoventilation syndrome, and diagnosed to have sleep apnea, and is being worked up for CPAP studies . Patient was admitted August 29 for pneumonia and discharged on antibiotics and nebulizer treatment. Patient was subsequently admitted again in September for chest pain atypical and mild persistent asthma with exacerbation. Patient was discharged home in stable condition. Patient complains of increase difficulty breathing along with cough with a tickly feeling in his throat. Patient also complains of chest pain when he was walking to the bathroom. He felt some heaviness and shortness of breath along with tightness. Patient states he has not been taking metformin as was advised at the time of discharge. Patient came into [facility] emergency center for evaluation. On arrival his blood pressure is 143/91 and 127/80. EKG reveals sinus mechanism with no acute ST or T wave abnormalities noted. Chest x-ray is negative for an acute cardiopulmonary process. Laboratory data reviewed, WBC 13.2, hemoglobin 16.6, platelets 273, d-dimer 0.36, sodium 135, potassium 4.5, creatinine 0.79, magnesium 2.0, lactic acid 2.4, 2.2, 3.3 and 1.5, cardiac enzymes negative 3, NT proBNP 17, LDL 139, HDL 61 and total cholesterol 227. Currently maintained on lisinopril 10 mg twice a day and Lopressor 25 mg daily. Echocardiogram obtained 10/06/2019 reveals preserved LV systolic function with ejection fraction 55-60%. Patient placed on the observation unit and has been seen by cardiology. CAT scan of the chest ordered. 10/17: The patient developed significant respiratory distress today with fever 102, heart rate of 140. CAT scan of the chest done yesterday showed a right lower lobe infiltrate or pneumonia. And patient was started on Zosyn and vancomycin this morning. Influenza came back positive for influenza A and patie nt has been started on Tamiflu. The patient complains of some phlegm production. Consult added for Dr. PATIENCE Griffith and patient will be transferred to the cardiac stepdown unit with cardiac monitoring. Cardiology is not planning for any heart catheterization at this point. BNP ordered. 2/23: Patient is seen today on the cardiac stepdown unit. Patient's breathing is much improved. His fever broke during the afternoon yesterday. Heart rate is currently controlled. Patient is refusing to take lisinopril due to his brother have any problem in the past with blood pressure medicine that he bibiana eves caused his . He denies having any chest pain. Patient has been seen by Dr. PATIENCE Griffith and continued on Solu-Medrol increased dose of 60 mg every 6 hours and IV antibiotics. Patient was started on Tamiflu yesterday and seems to be responding well. Repeat blood work reveals WBC 12.0, sodium 135, BUN 21 creatinine 0.73. Blood sugar running between 168 and 191. Patient will be transferred to the [facility] floor with telemetry. Anticipate discharge home on Saturday or Saturday. 10/19: Patient still doing good at this point remain on Tamiflu beside the 2 antibiotic for his bacterial pneumonitis beside his viral influenza pneumonitis, still on steroid, shortness of breath has significantly improved so far mobility still decrease with mild hypoxia with mobility. Objective - Vital Signs Vital signs: Vital Signs Temp 97.8 F 10/19/19 04:30 Pulse 95 10/19/19 11:12 Resp 20 10/19/19 04:30 BP 158/92 10/19/19 07:57 Pulse Ox 93 L 10/19/19 04:30 Intake & Output 10/18/19 10/19/19 10/19/19 18:59 06:59 18:59 Intake Total 240 300 760 Balance 240 300 760 Weight 149 kg Intake: IV 760 Piperacillin-Tazobactam 3 100 .375 gm In Sodium Chloride 0.9% 100 ml @ 25 mls/hr IVPB Q8H [facility] Rx#: [id number] Sodium Chloride 0.9% 1, 160 000 ml @ 20 mls/hr IV . Q24H INGR[facility] Rx#:[id number] Vancomycin 2,000 mg In 500 Sodium Chloride 0.9% 500 ml 500 ml @ 167 mls/hr IVPB Q12H INGRID Rx#: [id number] Oral 240 300 Other: Voiding Method Toilet Toilet Urinal Urinal # Voids 1 1 # Bowel Movements 0 - Exam Review of Systems Constitutional: Denies chills, Denies fatigue, denies fever, Denies poor appetite, Denies weight loss Eyes: denies blurred vision, denies pain Ears, nose, mouth and throat: Denies dysphagia, Denies headache, Denies nasal congestion, Denies nasal discharge, Denies sore throat, Denies vertigo Cardiovascular: Denies chest pain, Reports dyspnea on exertion, denies shortness of breath Respiratory: Reports cough, Reports cough with sputum, denies dyspnea, Reports sleep apnea, denies wheezing, Denies excessive sputum, Denies hemoptysis, Denies home oxygen Gastrointestinal: Denies abdominal pain, Denies diarrhea, Denies loss of appetite, Denies nausea, Denies vomiting Genitourinary: Denies dysuria, Denies urinary retention Musculoskeletal: Denies frequent falls, Denies gait dysfunction, Denies muscle weakness, Denies myalgias Integumentary: Denies pruritus, Denies rash, Denies wounds Neurological: Denies change in mentation, Denies change in speech, Denies numbness, Denies seizures, Denies weakness Psychiatric: Denies anxiety, Denies depression Endocrine: Denies fatigue, Denies weight change Physical Examination Gen: This is a morbidly obese 59-year-old male. He is sitting on the edge of the bed with no accessory muscle usage. HEENT: Head is atraumatic, normocephalic. Pupils equal, round. Sclerae is anicteric. NECK: Supple. No JVD. No lymphadenopathy. No thyromegaly. LUNGS: No wheezing. No intercostal retractions. HEART: Regular rate and rhythm. No murmur. ABDOMEN: Soft. Bowel sounds are present. No masses. No tenderness. EXTREMITIES: No pedal edema. No calf tenderness. Dorsalis pedis +2 bilaterally. NEUROLOGICAL: Patient is awake, alert and oriented x3. Cranial nerves 2 through 12 are grossly intact. - Labs CBC & Chem 7: 10/18/19 05:47 10/18/19 05:47 Labs: Abnormal Lab Results - Last 24 Hours (Table) 10/18/19 10/18/19 10/19/19 Range/Units 16:56 19:51 07:14 POC Glucose (mg/dL) 216 H 175 H 155 H (75-99) mg/dL 10/19/19 Range/Units 11:46 POC Glucose (mg/dL) 153 H (75-99) mg/dL Microbiology - Last 24 Hours (Table) 10/17/19 10:43 Blood Culture - Preliminary Blood No Growth after 48 hours 10/17/19 10:43 Blood Culture - Preliminary Blood No Growth after 48 hours 10/15/19 16:40 Blood Culture - Preliminary Blood No Growth after 72 hours Assessment and Plan Plan: 1. Acute hypoxic respiratory failure secondary to right lower lobe pneumonia and acute influenza. Continue oxygen therapy. Continue Zosyn and vancomycin, Tamiflu, DuoNeb treatments changed to 4 times daily scheduled and as needed, continue Symbicort twice daily, Solu-Medrol 60 mg IV every 6 hours, consult with Dr. PATIENCE Griffith appreciated. 2. Chest pain. Rule out acute coronary syndrome. Cardiology consult appreciated. Continue aspirin 81 mg daily, Lopressor 25 mg daily. No plan for intervention at this time. Cardiac workup remain negative so far. 3. Lactic acidosis secondary to right lower lobe pneumonia. CAT scan of the chest as above. 4. Tachycardia secondary to fever. Continue Lopressor 25 mg twice daily. 4. Hypertension. Continue Lopressor 25 mg twice daily, lisinopril 10 mg twice daily. 5. Hyperlipidemia unable to tolerate statin. 6. Morbid obesity with BMI of 48. 7. Obstructive sleep apnea currently without CPAP but undergoing studies. 8. Generalized osteoarthritis. 9. Mild persistent asthma with exacerbation. Continue Zosyn and vancomycin, Symbicort twice daily, DuoNeb treatments 4 times daily as needed, Solu-Medrol 60 mg every 6 hours, Singulair [address] Consult with Dr. PATIENCE Griffith appreciated.
[2019-10-19 17:00] LABS: Glucose,Whole Blood 192 mg/dL (75-99)
--- NOTE | 2019-10-19 18:56 | PN ---
PROGRESS NOTE DATE OF SERVICE: 10/19/2019 The patient has been hemodynamically stable. He is less short of breath. On physical examination, his respiratory rate is 18, pulse rate of 99, temperature 98.1, blood pressure 141/89. Oxygen saturation on room air was 95%. HEENT is unremarkable. Chest reveals expiratory wheeze. Cardiovascular system reveals S1, S2. Abdomen is soft. There is trace pedal edema. Sodium is 135, potassium 4.4, chloride 105, bicarb 26. IMPRESSION AT THIS TIME: 1. Right lower zone pneumonia. 2. Influenza. 3. Asthma with exacerbation. At this point in time, microbiological cultures have shown no growth as far as blood cultures are concerned. Patient is unable to bring up any sputum. Would continue Montelukast, Tamiflu, antibiotics and IV steroids. Will switch him to oral steroids, increase his activity level. Agree with possible discharge planning tomorrow if he is otherwise stable. MMODL / IJN: [id number] /
[2019-10-19] MEDS: BUDESONIDE 0.5 MG/2 ML NEBU INHALATION SCH (20:11)
[2019-10-19] MEDS: predniSONE 20 MG TAB PO SCH (20:28)
[2019-10-19 20:32] VITALS: TEMP 98
[2019-10-19 21:15] LABS: Glucose,Whole Blood 229 mg/dL (75-99)
[2019-10-20] MEDS: VANCOMYCIN 2,000 MG in SODIUM CHLORIDE 0.9% 500 ML 500 ML IVPB SCH (00:05)
[2019-10-20] MEDS: IPRATROPIUM-ALBUTEROL 3 ML NEB INHALATION PRN (02:36)
[2019-10-20] MEDS: PIPERACILLIN-TAZOBACTAM 3.375 GM in SODIUM CHLORIDE 0.9% 100 ML IVPB SCH ×2 (05:42→12:45)
[2019-10-20 07:23] LABS: Glucose,Whole Blood 148 mg/dL (75-99)
[2019-10-20 08:13] VITALS: BP 153/91; RESP 17
[2019-10-20] MEDS: BUDESONIDE 0.5 MG/2 ML NEBU INHALATION SCH (09:03)
[2019-10-20] MEDS: IPRATROPIUM-ALBUTEROL 3 ML NEB INHALATION SCH (09:03)
[2019-10-20 09:20] VITALS: PULSE 94
[2019-10-20] MEDS: MONTELUKAST 10 MG TAB PO SCH (09:32)
[2019-10-20] MEDS: METOPROLOL TARTRATE 25 MG TAB PO SCH (09:32)
[2019-10-20] MEDS: LISINOPRIL 10 MG TAB PO SCH (09:32)
[2019-10-20] MEDS: amLODIPine 5 MG TAB PO SCH (09:32)
[2019-10-20] MEDS: OSELTAMIVIR 75 MG CAP PO SCH (09:32)
[2019-10-20] MEDS: predniSONE 20 MG TAB PO SCH (09:32)
[2019-10-20] MEDS: IBUPROFEN 600 MG TAB PO SCH (09:33)
[2019-10-20] MEDS: ASPIRIN 81 MG PO SCH (09:33)
[2019-10-20] MEDS: INSULIN ASPART (NovoLOG) 100 UNIT/ML VIAL SQ SCH ×2 (09:33→12:44)
[2019-10-20] MEDS: PANTOPRAZOLE 40 MG TABLET PO SCH (09:33)
[2019-10-20 09:35] LABS: African American GFR (CKD) >90 (>60 ml/min/1.73 sqM); Non-African American GFR(CKD) >90 (>60 ml/min/1.73 sqM)
[2019-10-20] MEDS: SODIUM CHLORIDE 0.9% 1,000 ML IV SCH (11:49)
[2019-10-20] MEDS ORDERED: VANCOMYCIN 2,250 MG in SODIUM CHLORIDE 0.9% 500 ML 500 ML IVPB SCH (12:00)
--- NOTE | 2019-10-20 15:03 | P.DS ---
Providers Date of admission: 10/15/19 19:50 Expected date of discharge: 10/20/19 Attending physician: Syeda Mcgregor Consults: 10/15/19 19:42 Consult Physician Routine Consulting Provider: Sonny Griffith Consult Reason/Comments: Chest pain r/o Do you want consulting provider notified?: Yes 10/17/19 10:07 Consult Physician Urgent Consulting Provider: Riki Griffith Consult Reason/Comments: RLL pneumonia Do you want consulting provider notified?: Yes Primary care physician: [facility] Course: This is a 59-year-old male one of Dr. Zamora and Dr. PATIENCE Griffith with a previous medical history significant for mild persistent asthma, hypertension and hypertensive cardio vascular disease, hyperlipidemia, psoriatic arthritis, morbid obesity hypoventilation syndrome, and diagnosed to have sleep apnea, and is being worked up for CPAP studies . Patient was admitted August 29 for pneumonia and discharged on antibiotics and nebulizer treatment. Patient was subsequently admitted again in September for chest pain atypical and mild persistent asthma with exacerbation. Patient was discharged home in stable condition. Patient complains of increase difficulty breathing along with cough with a tickly feeling in his throat. Patient also complains of chest pain when he was walking to the bathroom. He felt some heaviness and shortness of breath along with tightness. Patient states he has not been taking metformin as was advised at the time of discharge. Patient came into [facility] emergency center for evaluation. On arrival his blood pressure is 143/91 and 127/80. EKG reveals sinus mechanism with no acute ST or T wave abnormalities noted. Chest x-ray is negative for an acute cardiopulmonary process. Laboratory data reviewed, WBC 13.2, hemoglobin 16.6, platelets 273, d-dimer 0.36, sodium 135, potassium 4.5, creatinine 0.79, magnesium 2.0, lactic acid 2.4, 2.2, 3.3 and 1.5, cardiac enzymes negative 3, NT proBNP 17, LDL 139, HDL 61 and total cholesterol 227. Currently maintained on lisinopril 10 mg twice a day and Lopressor 25 mg daily. Echocardiogram obtained 10/06/2019 reveals preserved LV systolic function with ejection fraction 55-60%. Patient placed on the observation unit and has been seen by cardiology. CAT scan of the chest ordered. 10/17: The patient developed significant respiratory distress today with fever 102, heart rate of 140. CAT scan of the chest done yesterday showed a right lower lobe infiltrate or pneumonia. And patient was started on Zosyn and vancomycin this morning. Influenza came back positive for influenza A and patient has been started on Tamiflu. The patient complains of some phlegm production. Consult added for Dr. PATIENCE Griffith and patient will be transferred to the cardiac stepdown unit with cardiac monitoring. Cardiology is not planning for any heart catheterization at this point. BNP ordered. 10/18: Patient is seen today on the cardiac stepdown unit. Patient's breathing is much improved. His fever broke during the afternoon yesterday. Heart rate is currently controlled. Patient is refusing to take lisinopril due to his brother have any problem in the past with blood pressure medicine that he believes caused his . He denies having any chest pain. Patient has been seen by Dr. PATIENCE Griffith and continued on Solu-Medrol increased dose of 60 mg every 6 hours and IV antibiotics. Patient was started on Tamiflu yesterday and seems to be responding well. Repeat blood work reveals WBC 12.0, sodium 135, BUN 21 creatinine 0.73. Blood sugar running between 168 and 191. Patient will be transferred to the [facility] floor with telemetry. Anticipate discharge home on Saturday or Saturday. 10/19: Patient still doing good at this point remain on Tamiflu beside the 2 antibiotic for his bacterial pneumonitis beside his viral influenza pneumonitis, still on steroid, shortness of breath has significantly improved so far mobility still decrease with mild hypoxia with mobility. 10/20: Patient has been afebrile, heart rate 79, blood pressure 153/91, pulse ox 95% on room air. Capillary blood sugar running between 148 and 229. All blood cultures are showing no growth at 48-96 hours. Patient is seen and followed by Dr. PATIENCE Griffith. Patient states that his breathing status is improving. He is willing to go home today. Patient will be discharged home in stable condition. Discharge diagnoses: 1. Chest pain. Ruled out acute coronary syndrome. 2. Acute hypoxic respiratory failure secondary to right lower lobe pneumonia and acute influenza with sepsis, present on admission. 3. Lactic acidosis secondary to right lower lobe pneumonia, influenza. 4. Tachycardia secondary to fever and sepsis. 4. Hypertension. 5. Hyperlipidemia unable to tolerate statin. 6. Morbid obesity with BMI of 48. 7. Obstructive sleep apnea currently without CPAP but undergoing studies. 8. Generalized osteoarthritis. 9. Mild persistent asthma with exacerbation. 10. Gastroesophageal reflux disease Discharge plan: Home Impression and plan of care have been directed as dictated by the signing physician. Kiley Diaz nurse practitioner acting as scribe for signing physician. Patient Condition at Discharge: Good Plan - Discharge Summary New Discharge Prescriptions: New Metoprolol Tartrate [Lopressor] 25 mg PO BID #60 tab amLODIPine [Norvasc] 5 mg PO DAILY #30 tab predniSONE 0 mg PO DIRECTED #30 tab Oseltamivir [Tamiflu] 75 mg PO Q12HR #2 cap Levofloxacin [Levaquin] 500 mg PO DAILY #5 tab Continue Montelukast Sodium [Singulair] 10 mg PO DAILY Albuterol Sulfate [Proair Hfa] 2 puff INHALATION RT-QID PRN PRN Reason: Shortness Of Breath Acetaminophen [Tylenol Arthritis] 650 mg PO TID PRN PRN Reason: Pain metFORMIN HCL [Glucophage] 850 mg PO W/BRKFST #30 tab Pantoprazole [Protonix] 40 mg PO AC-BRKFST #30 tablet. Lisinopril [Prinivil] 10 mg PO BID #60 tab Budesonide-Formot 160-4.5 Mcg [Symbicort 160-4.5 Mcg Inhaler] 2 puff INHALATION RT-BID Albuterol Nebulized [Ventolin Nebulized] 2.5 mg INHALATION RT-QID PRN PRN Reason: Shortness Of Breath Ipratropium-Albuterol Nebulize [Duoneb 0.5 mg-3 mg/3 ml Soln] 3 ml INHALATION RT-TID PRN PRN Reason: Shortness Of Breath Discontinued Doxycycline [Vibramycin] 100 mg PO BID 7 Days #14 capsule predniSONE See Taper PO DAILY Metoprolol Tartrate [Lopressor] 25 mg PO DAILY@1200 Discharge Medication List Albuterol Sulfate [Proair Hfa] 2 puff INHALATION RT-QID PRN 05/18/18 [History] Montelukast Sodium [Singulair] 10 mg PO DAILY 05/18/18 [History] Acetaminophen [Tylenol Arthritis] 650 mg PO TID PRN 10/06/19 [History] Lisinopril [Prinivil] 10 mg PO BID #60 tab 02/12/20 [Rx] Pantoprazole [Protonix] 40 mg PO AC-BRKFST #30 tablet. 10/07/19 [Rx] metFORMIN HCL [Glucophage] 850 mg PO W/BRKFST #30 tab 10/07/19 [Rx] Budesonide-Formot 160-4.5 Mcg [Symbicort 160-4.5 Mcg Inhaler] 2 puff INHALATION RT-BID 10/09/19 [History] Albuterol Nebulized [Ventolin Nebulized] 2.5 mg INHALATION RT-QID PRN 10/15/19 [History] Ipratropium-Albuterol Nebulize [Duoneb 0.5 mg-3 mg/3 ml Soln] 3 ml INHALATION RT-TID PRN 10/15/19 [History] Levofloxacin [Levaquin] 500 mg PO DAILY #5 tab 10/20/19 [Rx] Metoprolol Tartrate [Lopressor] 25 mg PO BID #60 tab 10/20/19 [Rx] Oseltamivir [Tamiflu] 75 mg PO Q12HR #2 cap 10/20/19 [Rx] amLODIPine [Norvasc] 5 mg PO DAILY #30 tab 10/20/19 [Rx] predniSONE 0 mg PO DIRECTED #30 tab 10/20/19 [Rx] Follow up Appointment(s)/Referral(s): [facility], [NON-STAFF] - Roger Lane MD [Primary Care Provider] - 1 Week (PT would like to call and make appointments. ) Riki Griffith MD [STAFF PHYSICIAN] - 1 Week Stuart Lemus MD [STAFF PHYSICIAN] - 2 Weeks (PT would like to call and make appointment. ) Patient Instructions/Handouts: Influenza (DC) Activity/Diet/Wound Care/Special Instructions: Off work rest of week Discharge Disposition: HOME WITH HOME HEALTH SERVICES
--- NOTE | 2019-10-20 22:42 | PN ---
PROGRESS NOTE DATE OF SERVICE: 10/20/2019 This patient has been hemodynamically stable. He is less short of breath. On physical examination, his respiratory rate is 17, pulse rate of 79, temperature 98, blood pressure 153/91. Oxygen saturation on room air is 95%. HEENT is unremarkable. Chest reveals wheeze on forced exhalation. Cardiovascular system reveals an S1, S2. Abdomen is soft. There is no pedal edema. IMPRESSION AT THIS TIME: 1. Severe asthma with acute exacerbation. 2. Right lower lobe pneumonia. 3. Influenza. At this point in time, keep him on tapering dose of steroids, antibiotics, bronchodilators. I agree with discharge planning with close outpatient followup. KRISTINE / KELLIN: [id number] /
== END 2019-10-20 13:21 | disposition home or self-care (01) | DRG 871 ==
LOC: EC 16:18 → 1SOBS 19:50 → OBSVTOIN 19:50 → 3SCARD 10-17 12:40 → 6NMEDSUR 10-18 12:12
PROVIDERS: ADMIT Internal Medicine; ATTEND Internal Medicine
DX: A41.9 Sepsis, unspecified organism (principal); J96.01 Acute respiratory failure with hypoxia; J15.9 Unspecified bacterial pneumonia; J10.08 Influenza due to other identified influenza virus with other specified pneumonia; J45.31 Mild persistent asthma with (acute) exacerbation; Z68.42 Body mass index [BMI] 45.0-49.9, adult; E66.2 Morbid (severe) obesity with alveolar hypoventilation; E87.2 Acidosis; L40.50 Arthropathic psoriasis, unspecified; I11.9 Hypertensive heart disease without heart failure; M17.11 Unilateral primary osteoarthritis, right knee; E78.5 Hyperlipidemia, unspecified; E11.9 Type 2 diabetes mellitus without complications; K21.9 Gastro-esophageal reflux disease without esophagitis; R07.89 Other chest pain; Z79.899 Other long term (current) drug therapy; Z79.51 Long term (current) use of inhaled steroids; Z79.84 Long term (current) use of oral hypoglycemic drugs; Z98.890 Other specified postprocedural states; Z87.891 Personal history of nicotine dependence; Z87.828 Personal history of other (healed) physical injury and trauma; Z87.01 Personal history of pneumonia (recurrent); Z88.8 Allergy status to other drugs, medicaments and biological substances; Z80.41 Family history of malignant neoplasm of ovary; Z83.79 Family history of other diseases of the digestive system; Z83.1 Family history of other infectious and parasitic diseases; Z82.49 Family history of ischemic heart disease and other diseases of the circulatory system
CPT/HCPCS: 36415; 71046; 71270; 80053; 80061; 80202; 80306; 82565; 83605; 83735; 83880; 84484; 85025; 85027; 85379; 85610; 85730; 87040; 87502; 93005; 94640; 94760; 96361; 96374; 99285

== ENCOUNTER 2019-12-07 05:39 | Emergency (ER) | payer BC ==
[2019-12-07 05:46] VITALS: RESP 18
--- NOTE | 2019-12-07 05:53 | ED ---
Abdominal Pain HPI - General Source: patient, RN notes reviewed, old records reviewed Mode of arrival: ambulatory Limitations: no limitations - History of Present Illness MD Complaint: abdominal pain -: hour(s) Location: diffuse Radiation: epigastric, suprapubic Migration to: epigastric, suprapubic Severity: moderate Severity scale (1-10): 4 Quality: cramping, aching Consistency: constant Improves With: nothing Worsens With: nothing Associated Symptoms: nausea Treatments Prior to Arrival: other (none) <Alberto Saab - Last Filed: 12/07/19 06:16> <Davy Clarke - Last Filed: 12/07/19 09:49> - General Chief Complaint: Abdominal Pain Stated Complaint: abd pain Time Seen by Provider: 12/07/19 05:42 - Related Data Home Medications Medication Instructions Recorded Confirmed Albuterol Sulfate [Proair Hfa] 2 puff INHALATION RT-QID PRN 05/18/18 10/15/19 Montelukast Sodium [Singulair] 10 mg PO DAILY 05/18/18 10/15/19 Acetaminophen [Tylenol Arthritis] 650 mg PO TID PRN 10/06/19 10/15/19 Budesonide-Formot 160-4.5 Mcg 2 puff INHALATION RT-BID 10/09/19 10/15/19 [Symbicort 160-4.5 Mcg Inhaler] Albuterol Nebulized [Ventolin 2.5 mg INHALATION RT-QID PRN 10/15/19 10/15/19 Nebulized] Ipratropium-Albuterol Nebulize 3 ml INHALATION RT-TID PRN 10/15/19 10/15/19 [Duoneb 0.5 mg-3 mg/3 ml Soln] Previous Rx's Medication Instructions Recorded Lisinopril [Prinivil] 10 mg PO BID #60 tab 10/07/19 Pantoprazole [Protonix] 40 mg PO AC-BRKFST #30 tablet. 10/07/19 metFORMIN HCL [Glucophage] 850 mg PO W/BRKFST #30 tab 10/07/19 Levofloxacin [Levaquin] 500 mg PO DAILY #5 tab 10/20/19 Metoprolol Tartrate [Lopressor] 25 mg PO BID #60 tab 10/20/19 Oseltamivir [Tamiflu] 75 mg PO Q12HR #2 cap 10/20/19 amLODIPine [Norvasc] 5 mg PO DAILY #30 tab 10/20/19 predniSONE 0 mg PO DIRECTED #30 tab 10/20/19 Allergies Allergy/AdvReac Type Severity Reaction Status Date / Time Wueytiy-Otn-Ycz Reductase AdvReac MU Verified 12/07/19 05:46 Inhibitor Review of Systems ROS Other: All systems not noted in ROS Statement are negative. <Alberto Saab - Last Filed: 12/07/19 06:16> ROS Other: All systems not noted in ROS Statement are negative. <Davy Clarke - Last Filed: 12/07/19 09:49> ROS Statement: Those systems with pertinent positive or pertinent negative responses have been documented in the HPI. Past Medical History Past Medical History: Asthma, Hyperlipidemia, Hypertension, Osteoarthritis (OA) Additional Past Medical History / Comment(s): Persistent asthma, NIDDM II-art hritis R knee, L ankle sprain History of Any Multi-Drug Resistant Organisms: None Reported Past Surgical History: Hernia Repair Additional Past Surgical History / Comment(s): Umbilical hernia repair Past Anesthesia/Blood Transfusion Reactions: Motion Sickness Past Psychological History: No Psychological Hx Reported Smoking Status: Former smoker Past Alcohol Use History: None Reported Past Drug Use History: None Reported - Past Family History Mother History Unknown: Yes Family Medical History: Cancer Additional Family Medical History / Comment(s): Mother of ovarian cancer at the age of 78yrs. Father History Unknown: Yes Family Medical History: GI Bleed Additional Family Medical History / Comment(s): Father around age 50 from a bleeding ulcer. Brother(s) Family Medical History: No Reported History Additional Family Medical History / Comment(s): The patient has 2 brothers and one from pneumonia at age 59, 1 is alive with history of bariatric surgery. Sister(s) Family Medical History: No Reported History Additional Family Medical History / Comment(s): Patient has 2 sisters and one has history of gallbladder disease. Daughter(s) Family Medical History: Unable to Obtain Additional Family Medical History / Comment(s): Patient has one daughter with no major medical problems. Son(s) Additional Family Medical History / Comment(s): Patient has 2 sons and one has hypertension. <Roskopp,Alberto B - Last Filed: 12/07/19 06:16> General Exam Limitations: no limitations General appearance: alert, in no apparent distress, obese Head exam: Present: atraumatic, normocephalic, normal inspection Eye exam: Present: normal appearance, PERRL, EOMI. Absent: scleral icterus, conjunctival injection, periorbital swelling ENT exam: Present: normal exam, mucous membranes moist Neck exam: Present: normal inspection. Absent: tenderness, meningismus, lymphadenopathy Respiratory exam: Present: normal lung sounds bilaterally. Absent: respiratory distress, wheezes, rales, rhonchi, stridor Cardiovascular Exam: Present: regular rate, normal rhythm, normal heart sounds. Absent: systolic murmur, diastolic murmur, rubs, gallop, clicks GI/Abdominal exam: Present: soft, normal bowel sounds. Absent: distended, tenderness, guarding, rebound, rigid Extremities exam: Present: normal inspection, full ROM, normal capillary refill. Absent: tenderness, pedal edema, joint swelling, calf tenderness Back exam: Present: normal inspection Neurological exam: Present: alert, oriented X3, CN II-XII intact Psychiatric exam: Present: normal affect, normal mood Skin exam: Present: warm, dry, intact, normal color. Absent: rash <Alberto Saab - Last Filed: 12/07/19 06:16> Course <Alberto Saab - Last Filed: 12/07/19 06:16> Vital Signs 12/07/19 12/07/19 05:44 09:00 Temperature 98.2 F 98.0 F Pulse Rate 97 84 Respiratory 18 18 Rate Blood Pressure 162/100 158/88 O2 Sat by Pulse 96 97 Oximetry - Reevaluation(s) Reevaluation #1: 12/07/19 06:16 medical record is reviewed (Alberto Saab) Reevaluation #2: 12/07/19 06:36 pain is improved (Alberto Saab) Medical Decision Making - Lab Data Result diagrams: 12/07/19 06:28 12/07/19 06:28 <Davy Clarke - Last Filed: 12/07/19 09:49> - Medical Decision Making Patient is signed out to me by previous shift physician Dr. Velazquez. Briefly, patient is a 59-year-old male presents today with epigastric abdominal pain. Plan at sign out was to follow up with CT imaging studies. CT was unremarkable. No acute processes. Labs were reviewed. Labs are unremarkable. Urinalysis is negative. Patient reevaluated bedside and found to be in stable medical condition. Patient's results were discussed. Splint is unclear what is causing patient's symptoms. States he hasn't had a bowel movement for several days. However he does report that he is having bowel movements just very small amounts . Patient reports he's been eating less. Patient told to take uqfi-yao-whnblab MiraLAX to aid with bowel movement. Patient understandable agreeable to plan. He is advised follow up with his primary care physician. (Davy Clarke) - Lab Data Lab Results 12/07/19 12/07/19 12/07/19 Range/Units 06:17 06:28 06:28 WBC 6.5 (3.8-10.6) k/uL RBC 5.11 (4.30-5.90) m/uL Hgb 15.6 (13.0-17.5) gm/dL Hct 47.5 (39.0-53.0) % MCV 92.9 (80.0-100.0) fL MCH 30.5 (25.0-35.0) pg MCHC 32.8 (31.0-37.0) g/dL RDW 13.4 (11.5-15.5) % Plt Count 291 (150-450) k/uL Neutrophils % 53 % Lymphocytes % 34 % Monocytes % 9 % Eosinophils % 3 % Basophils % 0 % Neutrophils # 3.4 (1.3-7.7) k/uL Lymphocytes # 2.2 (1.0-4.8) k/uL Monocytes # 0.6 (0-1.0) k/uL Eosinophils # 0.2 (0-0.7) k/uL Basophils # 0.0 (0-0.2) k/uL PT 9.7 (9.0-12.0) sec INR 0.9 (<1.2) APTT 19.0 L (22.0-30.0) sec Sodium (137-145) mmol/L Potassium (3.5-5.1) mmol/L Chloride (98-107) mmol/L Carbon Dioxide (22-30) mmol/L Anion Gap mmol/L BUN (9-20) mg/dL Creatinine (0.66-1.25) mg/dL Est GFR (CKD-EPI)AfAm (>60 ml/min/1.73 sqM) Est GFR (CKD-EPI)NonAf (>60 ml/min/1.73 sqM) Glucose (74-99) mg/dL Calcium (8.4-10.2) mg/dL Total Bilirubin (0.2-1.3) mg/dL AST (17-59) U/L ALT (4-49) U/L Alkaline Phosphatase (38-126) U/L Creatine Kinase (55-170) U/L Troponin I (0.000-0.034) ng/mL Total Protein (6.3-8.2) g/dL Albumin (3.5-5.0) g/dL Amylase (30-110) U/L Lipase (23-300) U/L Urine Color Yellow Urine Appearance Clear (Clear) Urine pH 5.5 (5.0-8.0) Ur Specific [place] 1.028 (1.001-1.035) Urine Protein Trace H (Negative) Urine Glucose (UA) Negative (Negative) Urine Ketones Trace H (Negative) Urine Blood Negative (Negative) Urine Nitrite Negative (Negative) Urine Bilirubin Negative (Negative) Urine Urobilinogen <2.0 (<2.0) mg/dL Ur Leukocyte Esterase Negative (Negative) 12/07/19 12/07/19 Range/Units 06:28 06:28 WBC (3.8-10.6) k/uL RBC (4.30-5.90) m/uL Hgb (13.0-17.5) gm/dL Hct (39.0-53.0) % MCV (80.0-100.0) fL MCH (25.0-35.0) pg MCHC (31.0-37.0) g/dL RDW (11.5-15.5) % Plt Count (150-450) k/uL Neutrophils % % Lymphocytes % % Monocytes % % Eosinophils % % Basophils % % Neutrophils # (1.3-7.7) k/uL Lymphocytes # (1.0-4.8) k/uL Monocytes # (0-1.0) k/uL Eosinophils # (0-0.7) k/uL Basophils # (0-0.2) k/uL PT (9.0-12.0) sec INR (<1.2) APTT (22.0-30.0) sec Sodium 137 (137-145) mmol/L Potassium 4.4 (3.5-5.1) mmol/L Chloride 107 (98-107) mmol/L Carbon Dioxide 24 (22-30) mmol/L Anion Gap 6 mmol/L BUN 16 (9-20) mg/dL Creatinine 0.81 (0.66-1.25) mg/dL Est GFR (CKD-EPI)AfAm >90 (>60 ml/min/1.73 sqM) Est GFR (CKD-EPI)NonAf >90 (>60 ml/min/1.73 sqM) Glucose 111 H (74-99) mg/dL Calcium 9.2 (8.4-10.2) mg/dL Total Bilirubin 1.0 (0.2-1.3) mg/dL AST 25 (17-59) U/L ALT 16 (4-49) U/L Alkaline Phosphatase 46 (38-126) U/L Creatine Kinase 78 (55-170) U/L Troponin I <0.012 (0.000-0.034) ng/mL Total Protein 7.2 (6.3-8.2) g/dL Albumin 4.1 (3.5-5.0) g/dL Amylase 37 (30-110) U/L Lipase 118 (23-300) U/L Urine Color Urine Appearance (Clear) Urine pH (5.0-8.0) Ur Specific [place] (1.001-1.035) Urine Protein (Negative) Urine Glucose (UA) (Negative) Urine Ketones (Negative) Urine Blood (Negative) Urine Nitrite (Negative) Urine Bilirubin (Negative) Urine Urobilinogen (<2.0) mg/dL Ur Leukocyte Esterase (Negative) Disposition <Alberto Saab - Last Filed: 12/07/19 06:16> Is patient prescribed a controlled substance at d/c from ED?: No Time of Disposition: 09:49 <Davy Clarke - Last Filed: 12/07/19 09:49> Clinical Impression: Abdominal pain Disposition: HOME SELF-CARE Condition: Good Instructions (If sedation given, give patient instructions): Abdominal Pain (ED) Additional Instructions: Please take MiraLAX to aid with passage of stool. MiraLAX is an qsml-yue-nmdhidc medication. Referrals: Roger Lane MD [Primary Care Provider] - 1-2 days
[2019-12-07] MEDS ORDERED: PANTOPRAZOLE 40 MG/10 ML VIAL IVP STA (06:07)
[2019-12-07] MEDS ORDERED: MORPHINE SULFATE 4 MG/ML SYRINGE IV STA (06:07)
[2019-12-07] MEDS ORDERED: ONDANSETRON 4 MG/2 ML VIAL IVP STA (06:07)
[2019-12-07] MEDS ORDERED: SODIUM CHLORIDE 0.9% 1,000 ML IV STA (06:07)
[2019-12-07 06:30] LABS: Appearance,Urine Clear (Clear); Bilirubin,Urine Negative (Negative); Blood,Urine Negative (Negative); Color,Urine Yellow; Glucose,Urine (UA) Negative (Negative); Ketones,Urine Trace (Negative); Leukocyte Esterase,Urine Negative (Negative); Nitrite,Urine Negative (Negative); PH, Urine 5.5 (5.0-8.0); Protein,Urine Trace (Negative); Specific Gravity,Urine 1.028 (1.001-1.035); Urobilinogen,Urine <2.0 mg/dL (<2.0)
[2019-12-07 06:50] LABS: Basophils % (A) 0 %; Eosinophils # (A) 0.2 k/uL (0-0.7); Eosinophils % (A) 3 %; HCT 47.5 % (39.0-53.0); HGB 15.6 gm/dL (13.0-17.5); Lymphocytes # (A) 2.2 k/uL (1.0-4.8); Lymphocytes % (A) 34 %; MCH 30.5 pg (25.0-35.0); MCHC 32.8 g/dL (31.0-37.0); MCV 92.9 fL (80.0-100.0); Mean Platelet Volume 8.2; Monocytes # (A) 0.6 k/uL (0-1.0); Monocytes % (A) 9 %; Neutrophils # (A) 3.4 k/uL (1.3-7.7); Neutrophils % (A) 53 %; Platelet Count 291 k/uL (150-450); RBC 5.11 m/uL (4.30-5.90); RDW 13.4 % (11.5-15.5); WBC 6.5 k/uL (3.8-10.6)
[2019-12-07 06:58] LABS: ALT 16 U/L (4-49); AST 25 U/L (17-59); African American GFR (CKD) >90 (>60 ml/min/1.73 sqM); Albumin 4.1 g/dL (3.5-5.0); Alkaline Phosphatase 46 U/L (38-126); Amylase 37 U/L (30-110); Anion Gap 6 mmol/L; Blood Urea Nitrogen 16 mg/dL (9-20); Calcium 9.2 mg/dL (8.4-10.2); Carbon Dioxide 24 mmol/L (22-30); Chloride 107 mmol/L (98-107); Creatine Kinase 78 U/L (55-170); Glucose 111 mg/dL (74-99); Non-African American GFR(CKD) >90 (>60 ml/min/1.73 sqM); Sodium 137 mmol/L (137-145); Total Protein 7.2 g/dL (6.3-8.2)
[2019-12-07 07:01] LABS: Potassium 4.4 mmol/L (3.5-5.1)
[2019-12-07 07:33] LABS: INR 0.9 (<1.2); Prothrombin Time 9.7 sec (9.0-12.0)
[2019-12-07 09:02] VITALS: BP 158/88; PULSE 84; TEMP 98
--- NOTE | 2019-12-07 09:42 | CT ---
EXAMINATION TYPE: CT abdomen pelvis w con DATE OF EXAM: 12/07/2019 COMPARISON: 02/15/2019 HISTORY: Abdominal pain for [address] DLP: 3716.4 mGycm CONTRAST: CT scan of the abdomen and pelvis is performed without Oral Contrast and with IV Contrast, patient in jected with 100 ml mL of Isovue 300. FINDINGS: LUNG BASES-: No visible nodule. No infiltrate. LIVER/GB: No calcified gallstones. No space occupying hepatic lesion. Biliary tree is of normal ca liber. PANCREAS: No inflammation. No distinct mass. SPLEEN: No splenic enlargement. No lesion seen. ADRENALS: No nodule. No thickening. KIDNEYS/BLADDER: No hydronephrosis. Nonobstructing calculi right kidney. No distinct renal mass. Ur inary bladder grossly unremarkable. BOWEL: Normal appendix. Normal bowel caliber. No inflammation. GENITAL ORGANS: No gross abnormality. LYMPH NODES: No greater than 1cm abdominal or pelvic lymph nodes are appreciated. AORTA: No significant abnormality. OSSEOUS STRUCTURES: No significant abnormality is seen. OTHER: No significant additional abnormality is seen. IMPRESSION: 1. No acute process seen to account for the patient's symptoms.
== END 2019-12-07 09:55 | disposition home or self-care (01) ==
LOC: EC 05:39
DX: R10.84 Generalized abdominal pain (principal); R11.0 Nausea; J45.909 Unspecified asthma, uncomplicated; I10 Essential (primary) hypertension; E11.9 Type 2 diabetes mellitus without complications; Z79.51 Long term (current) use of inhaled steroids; Z79.899 Other long term (current) drug therapy; Z88.8 Allergy status to other drugs, medicaments and biological substances
CPT/HCPCS: 36415; 80053; 82150; 82550; 83690; 84484; 85025; 85610; 85730; 81003; 74177; 99284; 96374; 96375 ×2; 96361; J2270; J2405; C9113; Q9967

== ENCOUNTER 2020-01-01 06:05 | Emergency (ER) | payer BC ==
[2020-01-01 06:09] VITALS: TEMP 98.1
[2020-01-01] MEDS ORDERED: ONDANSETRON 4 MG/2 ML VIAL IVP STA (06:23)
[2020-01-01] MEDS ORDERED: KETOROLAC 30 MG/ML 1 ML VIAL IVP STA (06:23)
[2020-01-01] MEDS ORDERED: SODIUM CHLORIDE 0.9% 1,000 ML IV STA (06:23)
[2020-01-01] MEDS ORDERED: HYDROmorphone 0.5 MG/0.5 ML SYRINGE IVP STA (06:23)
--- NOTE | 2020-01-01 06:29 | ED ---
Abdominal Pain HPI - General Chief Complaint: Abdominal Pain Stated Complaint: flank pain Time Seen by Provider: 01/01/20 06:10 Source: patient, RN notes reviewed, old records reviewed Mode of arrival: ambulatory Limitations: no limitations - History of Present Illness Initial Comments: Patient is a 59-year-old male presents emergency department today with chief complaint of 2 weeks of right-sided flank pain and right upper quadrant abdominal pain. He reports it's been a persistent dull achy pain for the past few weeks. He states that he has had no fevers or chills nausea or vomiting. He denies any changes in urination or bowel habits. Patient reports that he history of umbilical hernia repair surgery. He denies any significant shortness of breath or cough. Patient has a history of asthma, hypertension, hyperlipidemia and arthritis. - Related Data Home Medications Medication Instructions Recorded Confirmed Albuterol Sulfate [Proair Hfa] 2 puff INHALATION RT-QID PRN 05/18/18 10/15/19 Montelukast Sodium [Singulair] 10 mg PO DAILY 05/18/18 10/15/19 Acetaminophen [Tylenol Arthritis] 650 mg PO TID PRN 10/06/19 10/15/19 Budesonide-Formot 160-4.5 Mcg 2 puff INHALATION RT-BID 10/09/19 10/15/19 [Symbicort 160-4.5 Mcg Inhaler] Albuterol Nebulized [Ventolin 2.5 mg INHALATION RT-QID PRN 10/15/19 10/15/19 Nebulized] Ipratropium-Albuterol Nebulize 3 ml INHALATION RT-TID PRN 10/15/19 10/15/19 [Duoneb 0.5 mg-3 mg/3 ml Soln] Previous Rx's Medication Instructions Recorded Lisinopril [Prinivil] 10 mg PO BID #60 tab 10/07/19 Pantoprazole [Protonix] 40 mg PO AC-BRKFST #30 tablet. 10/07/19 metFORMIN HCL [Glucophage] 850 mg PO W/BRKFST #30 tab 10/07/19 Levofloxacin [Levaquin] 500 mg PO DAILY #5 tab 10/20/19 Metoprolol Tartrate [Lopressor] 25 mg PO BID #60 tab 10/20/19 Oseltamivir [Tamiflu] 75 mg PO Q12HR #2 cap 10/20/19 amLODIPine [Norvasc] 5 mg PO DAILY #30 tab 10/20/19 predniSONE 0 mg PO DIRECTED #30 tab 10/20/19 Ibuprofen [Motrin] 600 mg PO Q8HR PRN #20 tab 01/01/20 Allergies Allergy/AdvReac Type Severity Reaction Status Date / Time [place]-Duc-Gfk Reductase AdvReac MU Verified 01/01/20 06:09 Inhibitor Review of Systems ROS Statement: Those systems with pertinent positive or pertinent negative responses have been documented in the HPI. ROS Other: All systems not noted in ROS Statement are negative. Past Medical History Past Medical History: Asthma, Hyperlipidemia, Hypertension, Osteoarthritis (OA) Additional Past Medical History / Comment(s): Persistent asthma, NIDDM II- arthritis R knee, L ankle sprain History of Any Multi-Drug Resistant Organisms: None Reported Past Surgical History: Hernia Repair Additional Past Surgical History / Comment(s): Umbilical hernia repair Past Anesthesia/Blood Transfusion Reactions: Motion Sickness Past Psychological History: No Psychological Hx Reported Smoking Status: Former smoker Past Alcohol Use History: None Reported Past Drug Use History: None Reported - Past Family History Mother History Unknown: Yes Family Medical History: Cancer Additional Family Medical History / Comment(s): Mother of ovarian cancer at the age of 78yrs. Father History Unknown: Yes Family Medical History: GI Bleed Additional Family Medical History / Comment(s): Father around age 50 from a bleeding ulcer. Brother(s) Family Medical History: No Reported History Additional Family Medical History / Comment(s): The patient has 2 brothers and one from pneumonia at age 59, 1 is alive with history of bariatric surgery. Sister(s) Family Medical History: No Reported History Additional Family Medical History / Comment(s): Patient has 2 sisters and one has history of gallbladder disease. Daughter(s) Family Medical History: Unable to Obtain Additional Family Medical History / Comment(s): Patient has one daughter with no major medical problems. Son(s) Additional Family Medical History / Comment(s): Patient has 2 sons and one has hypertension. General Exam - General Exam Comments Initial Comments: Alert and oriented 59-year-old male. No significant distress. Limitations: no limitations General appearance: alert, in no apparent distress Head exam: Present: atraumatic, normocephalic, normal inspection Eye exam: Present: normal appearance, PERRL, EOMI. Absent: scleral icterus, conjunctival injection, periorbital swelling ENT exam: Present: normal exam, mucous membranes moist Neck exam: Present: normal inspection. Absent: tenderness, meningismus, lymphadenopathy Respiratory exam: Present: normal lung sounds bilaterally. Absent: respiratory distress, wheezes, rales, rhonchi, stridor Cardiovascular Exam: Present: regular rate, normal rhythm, normal heart sounds. Absent: systolic murmur, diastolic murmur, rubs, gallop, clicks GI/Abdominal exam: Present: soft, normal bowel sounds. Absent: distended, tenderness, guarding, rebound, rigid Extremities exam: Present: normal inspection, full ROM, normal capillary refill. Absent: tenderness, pedal edema, joint swelling, calf tenderness Back exam: Present: normal inspection Neurological exam: Present: alert, oriented X3, CN II-XII intact Course Vital Signs 01/01/20 01/01/20 06:05 07:47 Temperature 98.1 F Pulse Rate 101 H 88 Respiratory 20 18 Rate Blood Pressure 144/100 141/86 O2 Sat by Pulse 99 96 Oximetry Medical Decision Making - Medical Decision Making 59-year-old male presented today with 3 weeks of right-sided flank and abdominal pain. Patient's labwork was reviewed and unremarkable. She has complained of some right-sided flank pain. KUB did show questionable density over the right flank. We did ultrasound this today and negative for any significant normal is evidence of renal cyst and Patient was informed of this. Discussed Patient to josh weber-up with primary care doctor for further imaging in 6 months. Patient pain was at her most likely be muscular skeletal this time. I discussed anti- inflammatory medication. He does have an upcoming appointment with his PCP. Questions answered return parameters were discussed. - Lab Data Result diagrams: 01/01/20 06:58 01/01/20 06:58 Lab Results 01/01/20 01/01/20 01/01/20 Range/Units 06:58 06:58 06:58 WBC 7.1 (3.8-10.6) k/uL RBC 5.05 (4.30-5.90) m/uL Hgb 15.7 (13.0-17.5) gm/dL Hct 48.0 (39.0-53.0) % MCV 95.1 (80.0-100.0) fL MCH 31.1 (25.0-35.0) pg MCHC 32.7 (31.0-37.0) g/dL RDW 12.9 (11.5-15.5) % Plt Count 303 (150-450) k/uL Neutrophils % 55 % Lymphocytes % 30 % Monocytes % 7 % Eosinophils % 3 % Basophils % 1 % Neutrophils # 3.9 (1.3-7.7) k/uL Lymphocytes # 2.1 (1.0-4.8) k/uL Monocytes # 0.5 (0-1.0) k/uL Eosinophils # 0.2 (0-0.7) k/uL Basophils # 0.1 (0-0.2) k/uL PT 9.9 (9.0-12.0) sec INR 0.9 (<1.2) APTT 23.0 (22.0-30.0) sec D-Dimer (<0.60) mg/L FEU Sodium 137 (137-145) mmol/L Potassium 3.8 (3.5-5.1) mmol/L Chloride 107 (98-107) mmol/L Carbon Dioxide 24 (22-30) mmol/L Anion Gap 6 mmol/L BUN 20 (9-20) mg/dL Creatinine 0.82 (0.66-1.25) mg/dL Est GFR (CKD-EPI)AfAm >90 (>60 ml/min/1.73 sqM) Est GFR (CKD-EPI)NonAf >90 (>60 ml/min/1.73 sqM) Glucose 133 H (74-99) mg/dL Calcium 9.1 (8.4-10.2) mg/dL Total Bilirubin 0.6 (0.2-1.3) mg/dL AST 20 (17-59) U/L ALT 16 (4-49) U/L Alkaline Phosphatase 46 (38-126) U/L Troponin I (0.000-0.034) ng/mL Total Protein 6.4 (6.3-8.2) g/dL Albumin 3.7 (3.5-5.0) g/dL Amylase 42 (30-110) U/L Lipase 132 (23-300) U/L Urine Color Urine Appearance (Clear) Urine pH (5.0-8.0) Ur Specific [place] (1.001-1.035) Urine Protein (Negative) Urine Glucose (UA) (Negative) Urine Ketones (Negative) Urine Blood (Negative) Urine Nitrite (Negative) Urine Bilirubin (Negative) Urine Urobilinogen (<2.0) mg/dL Ur Leukocyte Esterase (Negative) 01/01/20 01/01/20 01/01/20 Range/Units 06:58 06:58 08:05 WBC (3.8-10.6) k/uL RBC (4.30-5.90) m/uL Hgb (13.0-17.5) gm/dL Hct (39.0-53.0) % MCV (80.0-100.0) fL MCH (25.0-35.0) pg MCHC (31.0-37.0) g/dL RDW (11.5-15.5) % Plt Count (150-450) k/uL Neutrophils % % Lymphocytes % % Monocytes % % Eosinophils % % Basophils % % Neutrophils # (1.3-7.7) k/uL Lymphocytes # (1.0-4.8) k/uL Monocytes # (0-1.0) k/uL Eosinophils # (0-0.7) k/uL Basophils # (0-0.2) k/uL PT (9.0-12.0) sec INR (<1.2) APTT (22.0-30.0) sec D-Dimer 0.54 (<0.60) mg/L FEU Sodium (137-145) mmol/L Potassium (3.5-5.1) mmol/L Chloride (98-107) mmol/L Carbon Dioxide (22-30) mmol/L Anion Gap mmol/L BUN (9-20) mg/dL Creatinine (0.66-1.25) mg/dL Est GFR (CKD-EPI)AfAm (>60 ml/min/1.73 sqM) Est GFR (CKD-EPI)NonAf (>60 ml/min/1.73 sqM) Glucose (74-99) mg/dL Calcium (8.4-10.2) mg/dL Total Bilirubin (0.2-1.3) mg/dL AST (17-59) U/L ALT (4-49) U/L Alkaline Phosphatase (38-126) U/L Troponin I <0.012 (0.000-0.034) ng/mL Total Protein (6.3-8.2) g/dL Albumin (3.5-5.0) g/dL Amylase (30-110) U/L Lipase (23-300) U/L Urine Color Yellow Urine Appearance Clear (Clear) Urine pH 5.0 (5.0-8.0) Ur Specific [place] 1.027 (1.001-1.035) Urine Protein Negative (Negative) Urine Glucose (UA) Negative (Negative) Urine Ketones Negative (Negative) Urine Blood Negative (Negative) Urine Nitrite Negative (Negative) Urine Bilirubin Negative (Negative) Urine Urobilinogen <2.0 (<2.0) mg/dL Ur Leukocyte Esterase Negative (Negative) 01/01/20 07:37 EKG performed at 731 shows normal sinus rhythm with nonspecific ST abnormality.. Ventricular rate of 85 bpm. Intervals 188 ms. QRS ration is 108 ms. QT QTc is 370/440 ms. - Radiology Data Radiology results: report reviewed No hydronephrosis of either kidney. 1.6 cm density overlying the right renal shadow on x-ray really is to follow-up in a large calculus not seen. There is nonobstructing solitary 7 mm renal calculus. 6 mm left renal calculus hypoechoic left renal lesion with 1.3 cm. Probable cyst. Follow-up with probable cyst recommended renal ultrasound in 6 months to ensure no interval growth. Single view shows a 1.6 cm rounded density on the right renal shadow may be bowel content or right renal calculus given body habitus. Ultrasound to be considered. Chest x-ray shows no acute cardio primary process. Disposition Clinical Impression: Right flank pain, Renal cyst Disposition: HOME SELF-CARE Condition: Good Instructions (If sedation given, give patient instructions): Flank Pain (ED) Additional Instructions: Please use medication as discussed. Please follow up with family doctor if symptoms have not improved over the next two days. Please return to the emergency room if your symptoms increase or worsen or for any other concerns. Prescriptions: Ibuprofen [Motrin] 600 mg PO Q8HR PRN #20 tab PRN Reason: Pain Is patient prescribed a controlled substance at d/c from ED?: No Referrals: Roger Lane MD [Primary Care Provider] - 1-2 days Time of Disposition: 09:26
[2020-01-01] MEDS: SODIUM CHLORIDE 0.9% 1,000 ML IV STA ×4 (06:54→06:58)
[2020-01-01 07:15] LABS: Basophils # (A) 0.1 k/uL (0-0.2); Basophils % (A) 1 %; Eosinophils # (A) 0.2 k/uL (0-0.7); Eosinophils % (A) 3 %; HGB 15.7 gm/dL (13.0-17.5); Lymphocytes # (A) 2.1 k/uL (1.0-4.8); Lymphocytes % (A) 30 %; MCH 31.1 pg (25.0-35.0); MCHC 32.7 g/dL (31.0-37.0); MCV 95.1 fL (80.0-100.0); Mean Platelet Volume 6.5; Monocytes # (A) 0.5 k/uL (0-1.0); Monocytes % (A) 7 %; Neutrophils # (A) 3.9 k/uL (1.3-7.7); Neutrophils % (A) 55 %; Platelet Count 303 k/uL (150-450); RBC 5.05 m/uL (4.30-5.90); RDW 12.9 % (11.5-15.5); WBC 7.1 k/uL (3.8-10.6)
[2020-01-01 07:25] LABS: INR 0.9 (<1.2); Prothrombin Time 9.9 sec (9.0-12.0)
[2020-01-01 07:26] LABS: ALT 16 U/L (4-49); AST 20 U/L (17-59); African American GFR (CKD) >90 (>60 ml/min/1.73 sqM); Albumin 3.7 g/dL (3.5-5.0); Alkaline Phosphatase 46 U/L (38-126); Amylase 42 U/L (30-110); Anion Gap 6 mmol/L; Blood Urea Nitrogen 20 mg/dL (9-20); Calcium 9.1 mg/dL (8.4-10.2); Carbon Dioxide 24 mmol/L (22-30); Chloride 107 mmol/L (98-107); Glucose 133 mg/dL (74-99); Non-African American GFR(CKD) >90 (>60 ml/min/1.73 sqM); Potassium 3.8 mmol/L (3.5-5.1); Sodium 137 mmol/L (137-145); Total Bilirubin 0.6 mg/dL (0.2-1.3); Total Protein 6.4 g/dL (6.3-8.2)
--- NOTE | 2020-01-01 07:31 | XR ---
EXAMINATION TYPE: XR chest 2V DATE OF EXAM: 01/01/2020 COMPARISON: CT chest October 16, 2019. Prior chest x-ray October 17, 2019. HISTORY: Right-sided chest and rib pain. TECHNIQUE: Frontal and lateral views of the chest are obtained. FINDINGS: There is no focal air space opacity, pleural effusion, or pneumothorax seen. The cardiac silhouette size is within normal limits. The osseous structures are intact. IMPRESSION: No acute cardiopulmonary process currently.
[2020-01-01 07:48] VITALS: RESP 18
--- NOTE | 2020-01-01 07:53 | XR ---
EXAMINATION TYPE: XR KUB DATE OF EXAM: 01/01/2020 7:26 AM CLINICAL HISTORY: Right posterior flank pain and rib pain TECHNIQUE: Single upright image of the abdomen is obtained. COMPARISON: 07/16/2019. FINDINGS: Lung bases are well aerated. No pneumoperitoneum visualized portions of the abdomen. Patien t body habitus precludes the entirety of the abdomen from the included on the images. Mild degree col onic fecal stasis in the right hemicolon. 1.6 cm rounded density overlying the right renal shadow not seen on the prior of 07/16/2019. No dilated large small bowel. IMPRESSION: Single view there is a 1.6 cm rounded density overlying the right renal shadow that may b e bowel content or less likely an obscured right renal calculus given patient body habitus. Renal ult rasound could be considered.
[2020-01-01 08:27] LABS: Appearance,Urine Clear (Clear); Bilirubin,Urine Negative (Negative); Blood,Urine Negative (Negative); Color,Urine Yellow; Glucose,Urine (UA) Negative (Negative); Ketones,Urine Negative (Negative); Leukocyte Esterase,Urine Negative (Negative); Nitrite,Urine Negative (Negative); Protein,Urine Negative (Negative); Specific Gravity,Urine 1.027 (1.001-1.035); Urobilinogen,Urine <2.0 mg/dL (<2.0)
--- NOTE | 2020-01-01 09:09 | US ---
EXAMINATION TYPE: US renals and bladder DATE OF EXAM: 01/01/2020 COMPARISON: CT dated 12/07/2019 and x-ray of 01/01/2020 CLINICAL HISTORY: flank. right flank pain EXAM MEASUREMENTS: Right Kidney: 12.5 x 5.4 x 5.9 cm Left Kidney: 11.2 x 6.0 x 5.3 cm Right Kidney: Calculus of the upper pole = 0.7cm Left Kidney: cystic area lateral/upper pole = 1.3 x 1.2 x 1.1cm, calculus of the midpole = 0.6cm Bladder: not fully distended Bilateral Jets seen: no There is no evidence for hydronephrosis at this point in time. No nephrolithiasis is seen. No wero s are identified. The urinary bladder is incompletely distended and suboptimally evaluated. Bilater al ureteral jets are not seen. IMPRESSION: 1. No hydronephrosis of either kidney. The 1.6 cm rounded density overlying the right renal shadow on x-ray relates to overlying bowel as a large calculus is not seen. There is a nonobstructing solitary 7 mm right renal calculus. 2. Nonobstructing 6 mm left renal calculus and hypoechoic left renal lesion measuring 1.3 cm, probabl e cyst. Follow-up for this probable cyst is recommended with renal ultrasound in 6 months to ensure n o interval growth.
[2020-01-01] MEDS ORDERED: traMADol 50 MG STARTER PACK 3 TAB BTL PO STA (09:28)
[2020-01-01 09:35] VITALS: BP 126/77; PULSE 85
== END 2020-01-01 09:45 | disposition home or self-care (01) ==
LOC: EC 06:05
DX: N28.1 Cyst of kidney, acquired (principal); J45.909 Unspecified asthma, uncomplicated; I10 Essential (primary) hypertension; E11.9 Type 2 diabetes mellitus without complications; Z79.51 Long term (current) use of inhaled steroids; Z88.8 Allergy status to other drugs, medicaments and biological substances; Z87.891 Personal history of nicotine dependence
CPT/HCPCS: 99285; 96374; 96375 ×2; 96361 ×3; 36415; 85379; 80053; 82150; 83690; 84484; 85025; 85610; 85730; 81003; 71046; 74018; 76770; J2405; J1885; J1170; 93005

== ENCOUNTER 2020-01-31 09:39 | Emergency (ER) | payer BC ==
[2020-01-31] MEDS ORDERED: methylPREDNISolone SOD SUCCI 125 MG/2 ML VIAL IV STA (09:56)
[2020-01-31 10:19] LABS: ALT 14 U/L (4-49); AST 21 U/L (17-59); African American GFR (CKD) >90 (>60 ml/min/1.73 sqM); Alkaline Phosphatase 51 U/L (38-126); Anion Gap 7 mmol/L; Blood Urea Nitrogen 17 mg/dL (9-20); Calcium 9.1 mg/dL (8.4-10.2); Carbon Dioxide 23 mmol/L (22-30); Chloride 109 mmol/L (98-107); Glucose 121 mg/dL (74-99); Non-African American GFR(CKD) >90 (>60 ml/min/1.73 sqM); Potassium 4.2 mmol/L (3.5-5.1); Sodium 139 mmol/L (137-145); Total Bilirubin 0.5 mg/dL (0.2-1.3); Total Protein 6.9 g/dL (6.3-8.2)
[2020-01-31 10:28] LABS: Basophils % (A) 0 %; Eosinophils # (A) 0.4 k/uL (0-0.7); Eosinophils % (A) 5 %; HCT 47.4 % (39.0-53.0); HGB 15.8 gm/dL (13.0-17.5); Lymphocytes # (A) 1.8 k/uL (1.0-4.8); Lymphocytes % (A) 24 %; MCH 31.9 pg (25.0-35.0); MCHC 33.3 g/dL (31.0-37.0); MCV 95.7 fL (80.0-100.0); Mean Platelet Volume 6.5; Monocytes # (A) 0.6 k/uL (0-1.0); Monocytes % (A) 8 %; Neutrophils # (A) 4.6 k/uL (1.3-7.7); Neutrophils % (A) 61 %; Platelet Count 283 k/uL (150-450); RBC 4.95 m/uL (4.30-5.90); WBC 7.5 k/uL (3.8-10.6)
[2020-01-31 10:30] LABS: INR 0.9 (<1.2); Prothrombin Time 9.4 sec (9.0-12.0)
[2020-01-31 10:32] LABS: D-Dimer 0.61 mg/L FEU (<0.60)
--- NOTE | 2020-01-31 10:37 | XR ---
EXAMINATION TYPE: XR chest 2V DATE OF EXAM: 01/31/2020 HISTORY: difficulty breathing. REFERENCE: Previous study dated 01/01/2020. FINDINGS: The lungs are overinflated. There is some platelike atelectasis at the right lung base. Shai gs otherwise clear. Heart size upper limits of normal. IMPRESSION: 1. COPD. 2. PLATELIKE ATELECTASIS, RIGHT LUNG BASE.
--- NOTE | 2020-01-31 11:04 | ED ---
General Adult HPI - General Chief complaint: Shortness of Breath Stated complaint: ALEXUS Time Seen by Provider: 01/31/20 09:40 Source: patient, RN notes reviewed, old records reviewed Mode of arrival: ambulatory Limitations: no limitations - History of Present Illness Initial comments: This is a 59-year-old male who states she's been having difficulty breathing over the last week. Patient states he went to his doctor he was given steroids but he has not started taking the steroid. Patient states he got up this morning and was having some shortness of breath and he took a breathing treatments and now he has no difficulty breathing but he states that he will relapse pre-quickly. Patient denies any chest pain or palpitations. Patient denies any recent fever chills or cough. Patient states he was a little bit lightheaded earlier. Patient denies any nausea vomiting diarrhea. Patient denies any abdominal pain. Patient denies any back pain. Headache patient denies any numbness or focal weakness. - Related Data Home Medications Medication Instructions Recorded Confirmed Albuterol Sulfate [Proair Hfa] 2 puff INHALATION RT-QID PRN 05/18/18 10/15/19 Montelukast Sodium [Singulair] 10 mg PO DAILY 05/18/18 10/15/19 Acetaminophen [Tylenol Arthritis] 650 mg PO TID PRN 10/06/19 10/15/19 Budesonide-Formot 160-4.5 Mcg 2 puff INHALATION RT-BID 10/09/19 10/15/19 [Symbicort 160-4.5 Mcg Inhaler] Albuterol Nebulized [Ventolin 2.5 mg INHALATION RT-QID PRN 10/15/19 10/15/19 Nebulized] Ipratropium-Albuterol Nebulize 3 ml INHALATION RT-TID PRN 10/15/19 10/15/19 [Duoneb 0.5 mg-3 mg/3 ml Soln] Previous Rx's Medication Instructions Recorded Lisinopril [Prinivil] 10 mg PO BID #60 tab 10/07/19 Pantoprazole [Protonix] 40 mg PO AC-BRKFST #30 tablet. 10/07/19 metFORMIN HCL [Glucophage] 850 mg PO W/BRKFST #30 tab 10/07/19 Levofloxacin [Levaquin] 500 mg PO DAILY #5 tab 10/20/19 Metoprolol Tartrate [Lopressor] 25 mg PO BID #60 tab 10/20/19 Oseltamivir [Tamiflu] 75 mg PO Q12HR #2 cap 10/20/19 amLODIPine [Norvasc] 5 mg PO DAILY #30 tab 10/20/19 predniSONE 0 mg PO DIRECTED #30 tab 10/20/19 Ibuprofen [Motrin] 600 mg PO Q8HR PRN #20 tab 01/01/20 predniSONE [Deltasone] 40 mg PO DAILY #8 tab 01/31/20 Allergies Allergy/AdvReac Type Severity Reaction Status Date / Time Awhehtv-Jpn-Eqo Reductase AdvReac MU Verified 01/31/20 09:46 Inhibitor Review of Systems ROS Statement: Those systems with pertinent positive or pertinent negative responses have been documented in the HPI. ROS Other: All systems not noted in ROS Statement are negative. Past Medical History Past Medical History: Asthma, Hyperlipidemia, Hypertension, Osteoarthritis (OA) Additional Past Medical History / Comment(s): Persistent asthma, NIDDM II- arthritis R knee, L ankle sprain History of Any Multi-Drug Resistant Organisms: None Reported Past Surgical History: Hernia Repair Additional Past Surgical History / Comment(s): Umbilical hernia repair Past Anesthesia/Blood Transfusion Reactions: Motion Sickness Past Psychological History: No Psychological Hx Reported Smoking Status: Former smoker Past Alcohol Use History: None Reported Past Drug Use History: None Reported - Past Family History Mother History Unknown: Yes Family Medical History: Cancer Additional Family Medical History / Comment(s): Mother of ovarian cancer at the age of 78yrs. Father History Unknown: Yes Family Medical History: GI Bleed Additional Family Medical History / Comment(s): Father around age 50 from a bleeding ulcer. Brother(s) Family Medical History: No Reported History Additional Family Medical History / Comment(s): The patient has 2 brothers and one from pneumonia at age 59, 1 is alive with history of bariatric surgery. Sister(s) Family Medical History: No Reported History Additional Family Medical History / Comment(s): Patient has 2 sisters and one has history of gallbladder disease. Daughter(s) Family Medical History: Unable to Obtain Additional Family Medical History / Comment(s): Patient has one daughter with no major medical problems. Son(s) Additional Family Medical History / Comment(s): Patient has 2 sons and one has hypertension. General Exam - General Exam Comments Initial Comments: GENERAL: Patient is well-developed and well-nourished. Patient is nontoxic and well- hydrated and is in mild distress. ENT: Neck is soft and supple. No significant lymphadenopathy is noted. Oropharynx is clear. Moist mucous membranes. Neck has full range of motion without eliciting any pain. EYES: The sclera were anicteric and conjunctiva were pink and moist. Extraocular movements were intact and pupils were equal round and reactive to light. Eyelids were unremarkable. PULMONARY: Unlabored respirations. Good breath sounds bilaterally. No audible rales rhonchi or wheezing was noted. CARDIOVASCULAR: There is a regular rate and rhythm without any murmurs gallops or rubs. ABDOMEN: Soft and nontender with normal bowel sounds. SKIN: Skin is clear with no lesions or rashes and otherwise unremarkable. NEUROLOGIC: Patient is alert and oriented x3. Cranial nerves II through XII are grossly intact. Motor and sensory are also intact. Normal speech, volume and content. Symmetrical smile. MUSCULOSKELETAL: Normal extremities with adequate strength and full range of motion. LYMPHATICS: No significant lymphadenopathy is noted PSYCHIATRIC: Normal psychiatric evaluation. Limitations: no limitations Course Vital Signs 01/31/20 01/31/20 01/31/20 09:43 11:58 12:12 Temperature 98.3 F 98 F Pulse Rate 104 H 82 Respiratory 18 20 Rate Blood Pressure 170/81 167/98 133/86 O2 Sat by Pulse 96 97 Oximetry 01/31/20 12:29 Temperature Pulse Rate 84 Respiratory Rate Blood Pressure O2 Sat by Pulse Oximetry Medical Decision Making - Medical Decision Making EKG shows normal sinus rhythm at 97 bpm AL interval 268 QRSs 100 QT interval 344 QTC is 436. Patient's EKG shows no ST elevation or depression. Patient got steroids in the emergency department. Patient's chest x-ray shows no acute abnormality. Patient got a breathing treatment emergency Department as well. As the patient's lungs after treatment he sounded much more clear and felt comfortable going home. Patient's pulse ox was 90% on room air. - Lab Data Result diagrams: 01/31/20 10:01 01/31/20 10:01 Lab Results 01/31/20 01/31/20 01/31/20 Range/Units 10:01 10:01 10:01 WBC 7.5 (3.8-10.6) k/uL RBC 4.95 (4.30-5.90) m/uL Hgb 15.8 (13.0-17.5) gm/dL Hct 47.4 (39.0-53.0) % MCV 95.7 (80.0-100.0) fL MCH 31.9 (25.0-35.0) pg MCHC 33.3 (31.0-37.0) g/dL RDW 13.0 (11.5-15.5) % Plt Count 283 (150-450) k/uL Neutrophils % 61 % Lymphocytes % 24 % Monocytes % 8 % Eosinophils % 5 % Basophils % 0 % Neutrophils # 4.6 (1.3-7.7) k/uL Lymphocytes # 1.8 (1.0-4.8) k/uL Monocytes # 0.6 (0-1.0) k/uL Eosinophils # 0.4 (0-0.7) k/uL Basophils # 0.0 (0-0.2) k/uL PT 9.4 (9.0-12.0) sec INR 0.9 (<1.2) APTT 23.0 (22.0-30.0) sec D-Dimer 0.61 H (<0.60) mg/L FEU Sodium 139 (137-145) mmol/L Potassium 4.2 (3.5-5.1) mmol/L Chloride 109 H (98-107) mmol/L Carbon Dioxide 23 (22-30) mmol/L Anion Gap 7 mmol/L BUN 17 (9-20) mg/dL Creatinine 0.78 (0.66-1.25) mg/dL Est GFR (CKD-EPI)AfAm >90 (>60 ml/min/1.73 sqM) Est GFR (CKD-EPI)NonAf >90 (>60 ml/min/1.73 sqM) Glucose 121 H (74-99) mg/dL Plasma Lactic Acid Jorge (0.7-2.0) mmol/L Calcium 9.1 (8.4-10.2) mg/dL Magnesium 2.0 (1.6-2.3) mg/dL Total Bilirubin 0.5 (0.2-1.3) mg/dL AST 21 (17-59) U/L ALT 14 (4-49) U/L Alkaline Phosphatase 51 (38-126) U/L Troponin I (0.000-0.034) ng/mL NT-Pro-B Natriuret Pep pg/mL Total Protein 6.9 (6.3-8.2) g/dL Albumin 4.0 (3.5-5.0) g/dL 01/31/20 01/31/20 01/31/20 Range/Units 10:01 10:01 10:01 WBC (3.8-10.6) k/uL RBC (4.30-5.90) m/uL Hgb (13.0-17.5) gm/dL Hct (39.0-53.0) % MCV (80.0-100.0) fL MCH (25.0-35.0) pg MCHC (31.0-37.0) g/dL RDW (11.5-15.5) % Plt Count (150-450) k/uL Neutrophils % % Lymphocytes % % Monocytes % % Eosinophils % % Basophils % % Neutrophils # (1.3-7.7) k/uL Lymphocytes # (1.0-4.8) k/uL Monocytes # (0-1.0) k/uL Eosinophils # (0-0.7) k/uL Basophils # (0-0.2) k/uL PT (9.0-12.0) sec INR (<1.2) APTT (22.0-30.0) sec D-Dimer (<0.60) mg/L FEU Sodium (137-145) mmol/L Potassium (3.5-5.1) mmol/L Chloride (98-107) mmol/L Carbon Dioxide (22-30) mmol/L Anion Gap mmol/L BUN (9-20) mg/dL Creatinine (0.66-1.25) mg/dL Est GFR (CKD-EPI)AfAm (>60 ml/min/1.73 sqM) Est GFR (CKD-EPI)NonAf (>60 ml/min/1.73 sqM) Glucose (74-99) mg/dL Plasma Lactic Acid Jorge 1.2 (0.7-2.0) mmol/L Calcium (8.4-10.2) mg/dL Magnesium (1.6-2.3) mg/dL Total Bilirubin (0.2-1.3) mg/dL AST (17-59) U/L ALT (4-49) U/L Alkaline Phosphatase (38-126) U/L Troponin I <0.012 (0.000-0.034) ng/mL NT-Pro-B Natriuret Pep 26 pg/mL Total Protein (6.3-8.2) g/dL Albumin (3.5-5.0) g/dL Disposition Clinical Impression: Acute exacerbation of chronic obstructive pulmonary disease Disposition: HOME SELF-CARE Instructions (If sedation given, give patient instructions): COPD (Chronic Obstructive Pulmonary Disease) (ED) Prescriptions: predniSONE [Deltasone] 40 mg PO DAILY #8 tab Is patient prescribed a controlled substance at d/c from ED?: No Referrals: Roger Lane MD [Primary Care Provider] - 1-2 days Time of Disposition: 12:32
--- NOTE | 2020-01-31 11:45 | CT ---
EXAMINATION TYPE: CT chest angio for PE DATE OF EXAM: 01/31/2020 COMPARISON: Previous study dated 06/05/2018. HISTORY: difficulty breathing CT DLP: 1111 mGycm Automated exposure control for dose reduction was used. CONTRAST: CT Chest for pulmonary embolism performed with with IV Contrast, patient injected with 100 mL of Isov ue 370. FINDINGS: There is a mildly spiculated, 11 mm nodule just above the dome of the diaphragm on the righ t. Previously this measured 9.6 mm and is not felt to changed significantly. The lungs are otherwise clear. There is no significant axillary or mediastinal adenopathy. There are some stable right hilar lymph n odes. These are not definitely pathologically enlarged. There is no evidence of pulmonary embolus. The aorta is normal in caliber without evidence of dissect ion. There is no pleural or pericardial fluid. The heart is not enlarged. Visualized portions of the upper abdomen are unremarkable. There is mild hypertrophic spondylosis within the spine. IMPRESSION: 1. THIS EXAMINATION IS NEGATIVE FOR PULMONARY EMBOLUS. 2. STABLE NODULE IN THE RIGHT LOWER LOBE. 3. STABLE, MINIMAL RIGHT HILAR ADENOPATHY.
[2020-01-31 11:59] VITALS: RESP 20; TEMP 98
[2020-01-31 12:13] VITALS: BP 133/86
[2020-01-31] MEDS ORDERED: IPRATROPIUM-ALBUTEROL 3 ML NEB INHALATION STA (12:19)
[2020-01-31 12:36] VITALS: PULSE 86
== END 2020-01-31 12:46 | disposition home or self-care (01) ==
LOC: EC 09:39
DX: J44.1 Chronic obstructive pulmonary disease with (acute) exacerbation (principal); Z79.51 Long term (current) use of inhaled steroids; Z87.891 Personal history of nicotine dependence; Z88.8 Allergy status to other drugs, medicaments and biological substances
CPT/HCPCS: 36415; 94640; 93005; 85379; 83880; 80053; 83605; 83735; 84484; 85025; 85610; 85730; 71046; 71275; 96374; 99285; J2930; Q9967

== ENCOUNTER 2020-02-14 18:41 | Emergency (ER) | payer BC ==
[2020-02-14 18:48] VITALS: RESP 18
[2020-02-14] MEDS ORDERED: SODIUM CHLORIDE 0.9% 1,000 ML IV ONE (18:58)
[2020-02-14] MEDS ORDERED: SODIUM CHLORIDE 0.9% 1,000 ML IV SCH (19:00)
[2020-02-14 19:14] VITALS: TEMP 98.8
[2020-02-14 19:21] LABS: Basophils # (A) 0.1 k/uL (0-0.2); Basophils % (A) 1 %; Eosinophils # (A) 0.3 k/uL (0-0.7); Eosinophils % (A) 3 %; HCT 46.8 % (39.0-53.0); HGB 16.2 gm/dL (13.0-17.5); Lymphocytes # (A) 1.8 k/uL (1.0-4.8); Lymphocytes % (A) 16 %; MCH 32.6 pg (25.0-35.0); MCHC 34.5 g/dL (31.0-37.0); MCV 94.3 fL (80.0-100.0); Mean Platelet Volume 6.5; Monocytes # (A) 0.8 k/uL (0-1.0); Monocytes % (A) 7 %; Neutrophils # (A) 8.4 k/uL (1.3-7.7); Neutrophils % (A) 73 %; Platelet Count 270 k/uL (150-450); RBC 4.97 m/uL (4.30-5.90); RDW 12.9 % (11.5-15.5); WBC 11.5 k/uL (3.8-10.6)
[2020-02-14] MEDS ORDERED: ONDANSETRON 4 MG/2 ML VIAL IVP STA (19:29)
[2020-02-14 19:36] LABS: ALT 13 U/L (4-49); AST 22 U/L (17-59); African American GFR (CKD) >90 (>60 ml/min/1.73 sqM); Alkaline Phosphatase 64 U/L (38-126); Anion Gap 7 mmol/L; Blood Urea Nitrogen 14 mg/dL (9-20); Carbon Dioxide 24 mmol/L (22-30); Chloride 106 mmol/L (98-107); Glucose 108 mg/dL (74-99); Non-African American GFR(CKD) >90 (>60 ml/min/1.73 sqM); Potassium 3.9 mmol/L (3.5-5.1); Sodium 137 mmol/L (137-145); Total Bilirubin 0.9 mg/dL (0.2-1.3); Total Protein 6.9 g/dL (6.3-8.2)
[2020-02-14 19:37] VITALS: BP 132/95; PULSE 95
--- NOTE | 2020-02-14 19:48 | XR ---
EXAMINATION TYPE: XR chest 2V DATE OF EXAM: 02/14/2020 COMPARISON: Fever. HISTORY: Prior chest x-ray [address] chest October 16, 2019. TECHNIQUE: Frontal and lateral views of the chest are obtained. FINDINGS: There is no focal air space opacity, pleural effusion, or pneumothorax seen. The cardiac silhouette size is within normal limits. The osseous structures are intact. IMPRESSION: No new suspicious acute infiltrate.
--- NOTE | 2020-02-14 19:58 | ED ---
Recheck HPI - General Chief Complaint: Recheck/Abnormal Lab/Rx Stated Complaint: fever, facial swelling, nausea Time Seen by Provider: 02/14/20 18:50 Source: patient Mode of arrival: wheelchair Limitations: no limitations - History of Present Illness Initial Comments: 5-year-old male presenting today for chief complaint of fever right upper dental pain and facial swelling. Patient states that yesterday evening he noted right upper dental pain and facial swelling in the right cheek. He states once he went to bed he noted the swelling to have moved to under his right eye. Patient denies tongue, lip swelling, rash or difficulty breathing. Denies new m edications. Patient states his normal body temperature is 98.7F but was in the 99s today never over 99.7F. Patient denies vomiting,abdominal pain, SOB, cough, congestion, headache, urinary symptoms Admits to slight nausea, denies diarrhea. Patient denies additional complaints - Related Data Home Medications Medication Instructions Recorded Confirmed Albuterol Sulfate [Proair Hfa] 2 puff INHALATION RT-QID PRN 05/18/18 10/15/19 Montelukast Sodium [Singulair] 10 mg PO DAILY 05/18/18 10/15/19 Acetaminophen [Tylenol Arthritis] 650 mg PO TID PRN 10/06/19 10/15/19 Budesonide-Formot 160-4.5 Mcg 2 puff INHALATION RT-BID 10/09/19 10/15/19 [Symbicort 160-4.5 Mcg Inhaler] Albuterol Nebulized [Ventolin 2.5 mg INHALATION RT-QID PRN 10/15/19 10/15/19 Nebulized] Ipratropium-Albuterol Nebulize 3 ml INHALATION RT-TID PRN 10/15/19 10/15/19 [Duoneb 0.5 mg-3 mg/3 ml Soln] Previous Rx's Medication Instructions Recorded Lisinopril [Prinivil] 10 mg PO BID #60 tab 10/07/19 Pantoprazole [Protonix] 40 mg PO AC-BRKFST #30 tablet. 10/07/19 metFORMIN HCL [Glucophage] 850 mg PO W/BRKFST #30 tab 10/07/19 Levofloxacin [Levaquin] 500 mg PO DAILY #5 tab 10/20/19 Metoprolol Tartrate [Lopressor] 25 mg PO BID #60 tab 10/20/19 Oseltamivir [Tamiflu] 75 mg PO Q12HR #2 cap 10/20/19 amLODIPine [Norvasc] 5 mg PO DAILY #30 tab 10/20/19 predniSONE 0 mg PO DIRECTED #30 tab 10/20/19 Ibuprofen [Motrin] 600 mg PO Q8HR PRN #20 tab 01/01/20 predniSONE [Deltasone] 40 mg PO DAILY #8 tab 01/31/20 Amoxic-Pot Clav 875-125Mg 1 tab PO Q12HR 7 Days #14 tab 02/14/20 [Augmentin 875-125] Allergies Allergy/AdvReac Type Severity Reaction Status Date / Time Btcbmpm-Hqt-Ugr Reductase AdvReac MU Verified 02/14/20 18:48 Inhibitor Review of Systems ROS Statement: Those systems with pertinent positive or pertinent negative responses have been documented in the HPI. ROS Other: All systems not noted in ROS Statement are negative. Past Medical History Past Medical History: Asthma, Hyperlipidemia, Hypertension, Osteoarthritis (OA) Additional Past Medical History / Comment(s): Persistent asthma, NIDDM II- arthritis R knee, History of Any Multi-Drug Resistant Organisms: None Reported Past Surgical History: Hernia Repair Additional Past Surgical History / Comment(s): Umbilical hernia repair Past Anesthesia/Blood Transfusion Reactions: Motion Sickness Past Psychological History: No Psychological Hx Reported Smoking Status: Former smoker Past Alcohol Use History: None Reported Past Drug Use History: None Reported - Past Family History Mother History Unknown: Yes Family Medical History: Cancer Additional Family Medical History / Comment(s): Mother of ovarian cancer at the age of 78yrs. Father History Unknown: Yes Family Medical History: GI Bleed Additional Family Medical History / Comment(s): Father around age 50 from a bleeding ulcer. Brother(s) Family Medical History: No Reported History Additional Family Medical History / Comment(s): The patient has 2 brothers and one from pneumonia at age 59, 1 is alive with history of bariatric surgery. Sister(s) Family Medical History: No Reported History Additional Family Medical History / Comment(s): Patient has 2 sisters and one has history of gallbladder disease. Daughter(s) Family Medical History: Unable to Obtain Additional Family Medical History / Comment(s): Patient has one daughter with no major medical problems. Son(s) Additional Family Medical History / Comment(s): Patient has 2 sons and one has hypertension. General Exam - General Exam Comments Initial Comments: General: The patient is awake and alert, in no distress Eye: Pupils are equal, round and reactive to light, extra-ocular movements are intact. No nystagmus. There is normal conjunctiva bilaterally. No signs of icterus. Ears, nose, mouth and throat: There are moist mucous membranes and no oral lesions. Poor dentition cracked tooth #27, no swelling below tongue, no trismus, no difficulty tolerating oral secretions no tripoding swelling of the neck or below the angle of the mandible Neck: The neck is supple, there is no tenderness or JVD. Cardiovascular: There is a regular rate and rhythm. No murmur, rub or gallop is appreciated. Respiratory: Lungs are clear to auscultation, respirations are non-labored, breath sounds are equal. No wheezes, stridor, rales, or rhonchi. Gastrointestinal: Soft, non-distended, non-tender abdomen without masses or organomegaly noted. There is no rebound or guarding present. Musculoskeletal: Normal ROM, no tenderness. Strength 5/5. Sensation intact. Radial pulses equal bilaterally 2+. Neurological: A&O x 3. CN II-XII intact grossly, There are no obvious motor or sensory deficits. Coordination appears grossly intact. Speech is normal. Skin: Skin is warm and dry and no rashes.Noted swelling below right eye, not red skin color. No redness of face. No lip or tongue swelling. Psychiatric: Cooperative, appropriate mood & affect, normal judgment. Limitations: no limitations Course Vital Signs 02/14/20 02/14/20 02/14/20 18:46 19:13 19:36 Temperature 99.6 F 98.8 F Pulse Rate 110 H 99 95 Respiratory 18 18 18 Rate Blood Pressure 154/94 125/69 132/95 O2 Sat by Pulse 99 96 96 Oximetry 02/14/20 20:25 Temperature 98.8 F Pulse Rate 95 Respiratory 18 Rate Blood Pressure 132/95 O2 Sat by Pulse 96 Oximetry Medical Decision Making - Medical Decision Making 59-year-old male presenting for right sided dental pain facial swelling. Concern for infection. Patient started on Augmentin. Patient does not appear toxic but states he has had a fever. Afebrile emergency department. Patient labs mild leukocytosis. Patient is to f/u with dentist. I discussed case with Dr. Carranza who is agreeable to care plan and discharge. - Lab Data Result diagrams: 02/14/20 19:05 02/14/20 19:05 Lab Results 02/14/20 02/14/20 02/14/20 Range/Units 19:05 19:05 19:05 WBC 11.5 H (3.8-10.6) k/uL RBC 4.97 (4.30-5.90) m/uL Hgb 16.2 (13.0-17.5) gm/dL Hct 46.8 (39.0-53.0) % MCV 94.3 (80.0-100.0) fL MCH 32.6 (25.0-35.0) pg MCHC 34.5 (31.0-37.0) g/dL RDW 12.9 (11.5-15.5) % Plt Count 270 (150-450) k/uL Neutrophils % 73 % Lymphocytes % 16 % Monocytes % 7 % Eosinophils % 3 % Basophils % 1 % Neutrophils # 8.4 H (1.3-7.7) k/uL Lymphocytes # 1.8 (1.0-4.8) k/uL Monocytes # 0.8 (0-1.0) k/uL Eosinophils # 0.3 (0-0.7) k/uL Basophils # 0.1 (0-0.2) k/uL Sodium 137 (137-145) mmol/L Potassium 3.9 (3.5-5.1) mmol/L Chloride 106 (98-107) mmol/L Carbon Dioxide 24 (22-30) mmol/L Anion Gap 7 mmol/L BUN 14 (9-20) mg/dL Creatinine 0.81 (0.66-1.25) mg/dL Est GFR (CKD-EPI)AfAm >90 (>60 ml/min/1.73 sqM) Est GFR (CKD-EPI)NonAf >90 (>60 ml/min/1.73 sqM) Glucose 108 H (74-99) mg/dL Plasma Lactic Acid Jorge 1.0 (0.7-2.0) mmol/L Calcium 9.0 (8.4-10.2) mg/dL Total Bilirubin 0.9 (0.2-1.3) mg/dL AST 22 (17-59) U/L ALT 13 (4-49) U/L Alkaline Phosphatase 64 (38-126) U/L Troponin I (0.000-0.034) ng/mL Total Protein 6.9 (6.3-8.2) g/dL Albumin 4.0 (3.5-5.0) g/dL Urine Color Urine Appearance (Clear) Urine pH (5.0-8.0) Ur Specific [place] (1.001-1.035) Urine Protein (Negative) Urine Glucose (UA) (Negative) Urine Ketones (Negative) Urine Blood (Negative) Urine Nitrite (Negative) Urine Bilirubin (Negative) Urine Urobilinogen (<2.0) mg/dL Ur Leukocyte Esterase (Negative) Urine RBC (0-5) /hpf Urine WBC (0-5) /hpf Ur Squamous Epith Cells (0-4) /hpf Hyaline Casts (0-2) /lpf Urine Mucus (None) /hpf 02/14/20 02/14/20 Range/Units 19:05 19:40 WBC (3.8-10.6) k/uL RBC (4.30-5.90) m/uL Hgb (13.0-17.5) gm/dL Hct (39.0-53.0) % MCV (80.0-100.0) fL MCH (25.0-35.0) pg MCHC (31.0-37.0) g/dL RDW (11.5-15.5) % Plt Count (150-450) k/uL Neutrophils % % Lymphocytes % % Monocytes % % Eosinophils % % Basophils % % Neutrophils # (1.3-7.7) k/uL Lymphocytes # (1.0-4.8) k/uL Monocytes # (0-1.0) k/uL Eosinophils # (0-0.7) k/uL Basophils # (0-0.2) k/uL Sodium (137-145) mmol/L Potassium (3.5-5.1) mmol/L Chloride (98-107) mmol/L Carbon Dioxide (22-30) mmol/L Anion Gap mmol/L BUN (9-20) mg/dL Creatinine (0.66-1.25) mg/dL Est GFR (CKD-EPI)AfAm (>60 ml/min/1.73 sqM) Est GFR (CKD-EPI)NonAf (>60 ml/min/1.73 sqM) Glucose (74-99) mg/dL Plasma Lactic Acid Jorge (0.7-2.0) mmol/L Calcium (8.4-10.2) mg/dL Total Bilirubin (0.2-1.3) mg/dL AST (17-59) U/L ALT (4-49) U/L Alkaline Phosphatase (38-126) U/L Troponin I <0.012 (0.000-0.034) ng/mL Total Protein (6.3-8.2) g/dL Albumin (3.5-5.0) g/dL Urine Color Yellow Urine Appearance Clear (Clear) Urine pH 6.0 (5.0-8.0) Ur Specific [place] 1.020 (1.001-1.035) Urine Protein Negative (Negative) Urine Glucose (UA) Negative (Negative) Urine Ketones 2+ (Negative) Urine Blood Small (Negative) Urine Nitrite Negative (Negative) Urine Bilirubin Negative (Negative) Urine Urobilinogen <2.0 (<2.0) mg/dL Ur Leukocyte Esterase Negative (Negative) Urine RBC 2 (0-5) /hpf Urine WBC 1 (0-5) /hpf Ur Squamous Epith Cells <1 (0-4) /hpf Hyaline Casts 1 (0-2) /lpf Urine Mucus Few H (None) /hpf Disposition Clinical Impression: Tooth pain, Facial swelling Disposition: HOME SELF-CARE Condition: Good Additional Instructions: Please use medication as discussed. Please follow-up with family doctor in the next 2 days. recommend dental follow-up in next 2-3 days. Please return to emergency room if the symptoms increase or worsen or for any other concerns. Prescriptions: Amoxic-Pot Clav 875-125Mg [Augmentin 875-125] 1 tab PO Q12HR 7 Days #14 tab Is patient prescribed a controlled substance at d/c from ED?: No Referrals: Roger Lane MD [Primary Care Provider] - 1-2 days Time of Disposition: 19:58
[2020-02-14 20:13] LABS: Hyaline Casts,Urine 1 /lpf (0-2); Mucus,Urine Few /hpf; RBC,Urine 2 /hpf (0-5); Squamous Epithelial Cell,Urine <1 /hpf (0-4); WBC,Urine 1 /hpf (0-5)
[2020-02-14 20:15] LABS: Appearance,Urine Clear (Clear); Color,Urine Yellow
[2020-02-14 20:16] LABS: Bilirubin,Urine Negative (Negative); Blood,Urine Small (Negative); Glucose,Urine (UA) Negative (Negative); Ketones,Urine 2+ (Negative); Protein,Urine Negative (Negative); Urobilinogen,Urine <2.0 mg/dL (<2.0)
[2020-02-14 20:17] LABS: Leukocyte Esterase,Urine Negative (Negative); Nitrite,Urine Negative (Negative)
== END 2020-02-14 20:30 | disposition home or self-care (01) ==
LOC: EC 18:41
DX: K08.89 Other specified disorders of teeth and supporting structures (principal); R22.0 Localized swelling, mass and lump, head; R50.9 Fever, unspecified; D72.829 Elevated white blood cell count, unspecified; K03.81 Cracked tooth; K00.7 Teething syndrome; J45.909 Unspecified asthma, uncomplicated; Z79.51 Long term (current) use of inhaled steroids; Z87.891 Personal history of nicotine dependence; Z88.8 Allergy status to other drugs, medicaments and biological substances
CPT/HCPCS: 36415; 93005; 80053; 83605; 84484; 85025; 81001; 71046; 99284; 96374; 96361; J2405

== ENCOUNTER 2020-03-09 06:35 | Emergency (ER) | payer BC ==
[2020-03-09] MEDS ORDERED: methylPREDNISolone SOD SUCCI 125 MG/2 ML VIAL IV STA (06:58)
[2020-03-09] MEDS ORDERED: IPRATROPIUM-ALBUTEROL 3 ML NEB INHALATION STA ×2 (06:58→07:57)
--- NOTE | 2020-03-09 07:07 | ED ---
General Adult HPI - General Chief complaint: Shortness of Breath Stated complaint: Chest Pain, ALEXUS Time Seen by Provider: 03/09/20 06:45 Source: patient, RN notes reviewed Mode of arrival: ambulatory Limitations: no limitations - History of Present Illness Initial comments: 59-year-old male with a past medical history of asthma, COPD, hyperlipidemia, hy pertension presents to the emergency department for a chief, no shortness of breath. Patient states he has felt short of breath for the past few weeks now. States it seems to be getting worse. States Dr. Griffith gave him a new inhaler but he has not started that yet because he has had other issues. Patient reports that he has had increased phlegm production and has been clearing his throat more. States he has had more of a cough especially after his treatments. He has not had any fevers. He does report his legs have looked more swollen than normal. Patient denies any chest pain associated with this. Patient has no other complaints at this time including chest pain, abdominal pain, nausea or vomiting, headache, or visual changes. - Related Data Home Medications Medication Instructions Recorded Confirmed Albuterol Sulfate [Proair Hfa] 2 puff INHALATION RT-QID PRN 05/18/18 10/15/19 Montelukast Sodium [Singulair] 10 mg PO DAILY 05/18/18 10/15/19 Acetaminophen [Tylenol Arthritis] 650 mg PO TID PRN 10/06/19 10/15/19 Albuterol Nebulized [Ventolin 2.5 mg INHALATION RT-QID PRN 10/15/19 10/15/19 Nebulized] Previous Rx's Medication Instructions Recorded metFORMIN HCL [Glucophage] 850 mg PO W/BRKFST #30 tab 10/07/19 Azithromycin [Zithromax Z-pack] 250 mg PO DIRECTED #6 tab 03/09/20 predniSONE 50 mg PO DAILY #5 tablet 03/09/20 Allergies Allergy/AdvReac Type Severity Reaction Status Date / Time Pmwcxxs-Omv-Kdv Reductase AdvReac MU Verified 03/09/20 06:41 Inhibitor Review of Systems ROS Statement: Those systems with pertinent positive or pertinent negative responses have been documented in the HPI. ROS Other: All systems not noted in ROS Statement are negative. Past Medical History Past Medical History: Asthma, Hyperlipidemia, Hypertension, Osteoarthritis (OA) Additional Past Medical History / Comment(s): Persistent asthma, NIDDM II- arthritis R knee, History of Any Multi-Drug Resistant Organisms: None Reported Past Surgical History: Hernia Repair Additional Past Surgical History / Comment(s): Umbilical hernia repair Past Anesthesia/Blood Transfusion Reactions: Motion Sickness Past Psychological History: No Psychological Hx Reported Smoking Status: Former smoker Past Alcohol Use History: None Reported Past Drug Use History: None Reported - Past Family History Mother History Unknown: Yes Family Medical History: Cancer Additional Family Medical History / Comment(s): Mother of ovarian cancer at the age of 78yrs. Father History Unknown: Yes Family Medical History: GI Bleed Additional Family Medical History / Comment(s): Father around age 50 from a bleeding ulcer. Brother(s) Family Medical History: No Reported History Additional Family Medical History / Comment(s): The patient has 2 brothers and one from pneumonia at age 59, 1 is alive with history of bariatric surgery. Sister(s) Family Medical History: No Reported History Additional Family Medical History / Comment(s): Patient has 2 sisters and one has history of gallbladder disease. Daughter(s) Family Medical History: Unable to Obtain Additional Family Medical History / Comment(s): Patient has one daughter with no major medical problems. Son(s) Additional Family Medical History / Comment(s): Patient has 2 sons and one has hypertension. General Exam Limitations: no limitations General appearance: alert, in no apparent distress Head exam: Present: atraumatic, normocephalic, normal inspection Eye exam: Present: normal appearance, PERRL, EOMI. Absent: scleral icterus, conjunctival injection, periorbital swelling ENT exam: Present: normal exam, mucous membranes moist Neck exam: Present: normal inspection. Absent: tenderness, meningismus, lymphadenopathy Respiratory exam: Present: wheezes (Wheezes in all 4 lung babb). Absent: respiratory distress, rales, rhonchi, stridor Cardiovascular Exam: Present: regular rate, normal rhythm, normal heart sounds. Absent: systolic murmur, diastolic murmur, rubs, gallop, clicks GI/Abdominal exam: Present: soft, normal bowel sounds. Absent: distended, tenderness, guarding, rebound, rigid Neurological exam: Present: alert Course Vital Signs 07/15/20 07/15/20 07/15/20 06:37 07:12 07:15 Temperature 98.6 F 98.7 F Pulse Rate 108 H 94 100 Respiratory 26 H 18 18 Rate Blood Pressure 141/79 115/84 113/84 O2 Sat by Pulse 97 95 95 Oximetry 03/09/20 03/09/20 03/09/20 07:18 07:30 07:40 Temperature Pulse Rate 101 H 98 Respiratory 18 Rate Blood Pressure O2 Sat by Pulse Oximetry EKG Findings - EKG Comments: EKG Findings:: Sinus tachycardia, ventricular rate 104, ID interval 158, QTC 465 Medical Decision Making - Medical Decision Making Vitals are stable. Patient is 97-98% on room air when I am in the room. He does have wheezing in all lung babb. No tripoding. Patient is in no respiratory distress. CBC CMP is unremarkable. Troponin is negative. BNP is normal at 21. Chest x-ray shows chronic changes without evidence for acute pulmonary disease. Patient was given DuoNeb and had significant improvement in symptoms. He was also given IV Solu-Medrol. I discussed options with patient and he prefers to be discharged home. He will be given another DuoNeb if you to for discharge and a prescription of steroids. He will follow up with his doctor this week for a recheck. He will also start the second inhaler that Dr. Griffith prescribed him at the beginning of the month as he has not yet done so. I discussed return parameters and patient is agreeable. - Lab Data Result diagrams: 03/09/20 06:52 03/09/20 06:52 Lab Results 03/09/20 03/09/20 03/09/20 Range/Units 06:52 06:52 06:52 WBC 7.7 (3.8-10.6) k/uL RBC 5.20 (4.30-5.90) m/uL Hgb 15.7 (13.0-17.5) gm/dL Hct 48.2 (39.0-53.0) % MCV 92.6 (80.0-100.0) fL MCH 30.2 (25.0-35.0) pg MCHC 32.6 (31.0-37.0) g/dL RDW 12.8 (11.5-15.5) % Plt Count 287 (150-450) k/uL Neutrophils % 55 % Lymphocytes % 30 % Monocytes % 6 % Eosinophils % 7 % Basophils % 1 % Neutrophils # 4.3 (1.3-7.7) k/uL Lymphocytes # 2.3 (1.0-4.8) k/uL Monocytes # 0.5 (0-1.0) k/uL Eosinophils # 0.5 (0-0.7) k/uL Basophils # 0.1 (0-0.2) k/uL PT 9.4 (9.0-12.0) sec INR 0.9 (<1.2) APTT 22.7 (22.0-30.0) sec Sodium 139 (137-145) mmol/L Potassium 3.8 (3.5-5.1) mmol/L Chloride 107 (98-107) mmol/L Carbon Dioxide 25 (22-30) mmol/L Anion Gap 7 mmol/L BUN 19 (9-20) mg/dL Creatinine 0.76 (0.66-1.25) mg/dL Est GFR (CKD-EPI)AfAm >90 (>60 ml/min/1.73 sqM) Est GFR (CKD-EPI)NonAf >90 (>60 ml/min/1.73 sqM) Glucose 156 H (74-99) mg/dL Plasma Lactic Acid Jorge (0.7-2.0) mmol/L Calcium 8.8 (8.4-10.2) mg/dL Magnesium 2.0 (1.6-2.3) mg/dL Total Bilirubin 0.4 (0.2-1.3) mg/dL AST 20 (17-59) U/L ALT 15 (4-49) U/L Alkaline Phosphatase 59 (38-126) U/L Troponin I (0.000-0.034) ng/mL NT-Pro-B Natriuret Pep pg/mL Total Protein 6.4 (6.3-8.2) g/dL Albumin 3.9 (3.5-5.0) g/dL 03/09/20 03/09/20 03/09/20 Range/Units 06:52 06:52 06:52 WBC (3.8-10.6) k/uL RBC (4.30-5.90) m/uL Hgb (13.0-17.5) gm/dL Hct (39.0-53.0) % MCV (80.0-100.0) fL MCH (25.0-35.0) pg MCHC (31.0-37.0) g/dL RDW (11.5-15.5) % Plt Count (150-450) k/uL Neutrophils % % Lymphocytes % % Monocytes % % Eosinophils % % Basophils % % Neutrophils # (1.3-7.7) k/uL Lymphocytes # (1.0-4.8) k/uL Monocytes # (0-1.0) k/uL Eosinophils # (0-0.7) k/uL Basophils # (0-0.2) k/uL PT (9.0-12.0) sec INR (<1.2) APTT (22.0-30.0) sec Sodium (137-145) mmol/L Potassium (3.5-5.1) mmol/L Chloride (98-107) mmol/L Carbon Dioxide (22-30) mmol/L Anion Gap mmol/L BUN (9-20) mg/dL Creatinine (0.66-1.25) mg/dL Est GFR (CKD-EPI)AfAm (>60 ml/min/1.73 sqM) Est GFR (CKD-EPI)NonAf (>60 ml/min/1.73 sqM) Glucose (74-99) mg/dL Plasma Lactic Acid Jorge 2.0 (0.7-2.0) mmol/L Calcium (8.4-10.2) mg/dL Magnesium (1.6-2.3) mg/dL Total Bilirubin (0.2-1.3) mg/dL AST (17-59) U/L ALT (4-49) U/L Alkaline Phosphatase (38-126) U/L Troponin I <0.012 (0.000-0.034) ng/mL NT-Pro-B Natriuret Pep 21 pg/mL Total Protein (6.3-8.2) g/dL Albumin (3.5-5.0) g/dL Disposition Clinical Impression: Wheezing, COPD exacerbation Disposition: HOME SELF-CARE Condition: Good Instructions (If sedation given, give patient instructions): COPD (Chronic Obstructive Pulmonary Disease) (ED) Additional Instructions: Please take steroid as directed. Take antibiotic. Follow-up with primary care in 1-2 days for a recheck. Return here to the emergency room should he have any worsening or not improving symptoms. Prescriptions: predniSONE 50 mg PO DAILY #5 tablet Azithromycin [Zithromax Z-pack] 250 mg PO DIRECTED #6 tab Is patient prescribed a controlled substance at d/c from ED?: No Referrals: Roger Lane MD [Primary Care Provider] - 1-2 days Time of Disposition: 08:00
[2020-03-09 07:09] LABS: Basophils # (A) 0.1 k/uL (0-0.2); Basophils % (A) 1 %; Eosinophils # (A) 0.5 k/uL (0-0.7); Eosinophils % (A) 7 %; HCT 48.2 % (39.0-53.0); HGB 15.7 gm/dL (13.0-17.5); Lymphocytes # (A) 2.3 k/uL (1.0-4.8); Lymphocytes % (A) 30 %; MCH 30.2 pg (25.0-35.0); MCHC 32.6 g/dL (31.0-37.0); MCV 92.6 fL (80.0-100.0); Mean Platelet Volume 6.6; Monocytes # (A) 0.5 k/uL (0-1.0); Monocytes % (A) 6 %; Neutrophils # (A) 4.3 k/uL (1.3-7.7); Neutrophils % (A) 55 %; Platelet Count 287 k/uL (150-450); RDW 12.8 % (11.5-15.5); WBC 7.7 k/uL (3.8-10.6)
[2020-03-09 07:14] VITALS: RESP 18
[2020-03-09 07:16] VITALS: TEMP 98.7
[2020-03-09 07:19] LABS: ALT 15 U/L (4-49); AST 20 U/L (17-59); African American GFR (CKD) >90 (>60 ml/min/1.73 sqM); Albumin 3.9 g/dL (3.5-5.0); Alkaline Phosphatase 59 U/L (38-126); Anion Gap 7 mmol/L; Blood Urea Nitrogen 19 mg/dL (9-20); Calcium 8.8 mg/dL (8.4-10.2); Carbon Dioxide 25 mmol/L (22-30); Chloride 107 mmol/L (98-107); Glucose 156 mg/dL (74-99); Non-African American GFR(CKD) >90 (>60 ml/min/1.73 sqM); Potassium 3.8 mmol/L (3.5-5.1); Sodium 139 mmol/L (137-145); Total Bilirubin 0.4 mg/dL (0.2-1.3); Total Protein 6.4 g/dL (6.3-8.2)
[2020-03-09 07:24] LABS: INR 0.9 (<1.2); Partial Thromboplastin Time 22.7 sec (22.0-30.0); Prothrombin Time 9.4 sec (9.0-12.0)
--- NOTE | 2020-03-09 07:34 | XR ---
EXAMINATION TYPE: XR chest 2V DATE OF EXAM: 03/09/2020 HISTORY: Shortness of breath. COMPARISON: 02/14/2020 TECHNIQUE: Single view of the chest is submitted. FINDINGS: Demonstrated are scattered senescent parenchymal change. There is no evidence for focal infiltrate. The heart is stable. Hilar and mediastinal structures are within normal limits. Degenerative changes are seen of the dorsal spine. IMPRESSION: 1. Chronic changes without evidence for acute pulmonary disease.
[2020-03-09 08:06] VITALS: PULSE 101
[2020-03-09 08:31] VITALS: BP 135/86
== END 2020-03-09 08:33 | disposition home or self-care (01) ==
LOC: EC 06:35
DX: J44.1 Chronic obstructive pulmonary disease with (acute) exacerbation (principal); M19.90 Unspecified osteoarthritis, unspecified site; Z79.51 Long term (current) use of inhaled steroids; Z87.891 Personal history of nicotine dependence; Z88.8 Allergy status to other drugs, medicaments and biological substances
CPT/HCPCS: 36415; 94640 ×2; 93005; 83880; 80053; 83605; 83735; 84484; 85025; 85610; 85730; 71046; 99285; 96374; J2930

== ENCOUNTER 2020-03-11 10:13 | Emergency (ER) | payer BC ==
[2020-03-11 11:20] VITALS: PULSE 86; RESP 18
--- NOTE | 2020-03-11 11:22 | ED ---
Recheck HPI - General Chief Complaint: Recheck/Abnormal Lab/Rx Stated Complaint: poss overdose/singulair Time Seen by Provider: 03/11/20 10:44 Source: patient Mode of arrival: ambulatory Limitations: no limitations - History of Present Illness Initial Comments: Patient is a 59-year-old male presenting to the emergency Department with complaints of taking 1 extra Singulair today. 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 Patient states he woke up approximately 5 AM this morning and thinks he took his Singulair tablet. Patient states he went back to bed and woke up at 9 AM and knows that he did take an additional Singler tablet. He states he is not "100% sure if he took it at 5 AM this morning but knows for sure he took it at 9." Patient states he read the label and states it is harmful to take more than one in a 24-hour period so he wanted to be seen. Patient was here a couple days ago for a cough. Patient states he is taking his other regular medications as normal. Patient normally takes his blood pressure medication in the afternoon. He denies any shortness of breath, chest pain, abdominal pain, nausea, vomiting And anxiety. He has no further complaints at this time. Upon arrival to the ER, patient's blood pressure is elevated at 182/100, rest of vitals are normal. - Related Data Home Medications Medication Instructions Recorded Confirmed Albuterol Sulfate [Proair Hfa] 2 puff INHALATION RT-QID PRN 05/18/18 03/11/20 Montelukast Sodium [Singulair] 10 mg PO DAILY@0905/18/18 03/11/20 Acetaminophen [Tylenol Arthritis] 650 mg PO TID PRN 10/06/19 03/11/20 Albuterol Nebulized [Ventolin 2.5 mg INHALATION RT-QID PRN 10/15/19 03/11/20 Nebulized] Beclomethasone Dip 80 Mcg/Puff 2 puff INHALATION RT-BID 03/09/20 03/11/20 [Qvar 80 mcg] Lisinopril [Prinivil] 20 mg PO DAILY@199903/09/20 03/11/20 Multivitamins, Thera [Multivitamin 1 tab PO DAILY 03/09/20 03/11/20 (formulary)] amLODIPine [Norvasc] 10 mg PO DAILY@1400 07/15/20 07/17/20 Azithromycin [Zithromax Z-pack] See Taper PO DAILY 03/11/20 03/11/20 metFORMIN HCL [Glucophage] 850 mg PO W/BRKFST PRN 03/11/20 03/11/20 Previous Rx's Medication Instructions Recorded predniSONE 50 mg PO DAILY #5 tablet 03/09/20 Allergies Allergy/AdvReac Type Severity Reaction Status Date / Time Ivchyla-Iur-Blx Reductase AdvReac MU Verified 03/11/20 11:13 Inhibitor Review of Systems ROS Statement: Those systems with pertinent positive or pertinent negative responses have been documented in the HPI. ROS Other: All systems not noted in ROS Statement are negative. Past Medical History Past Medical History: Asthma, Hyperlipidemia, Hypertension, Osteoarthritis (OA) Additional Past Medical History / Comment(s): Persistent asthma, NIDDM II- arthritis R knee, History of Any Multi-Drug Resistant Organisms: None Reported Past Surgical History: Hernia Repair Additional Past Surgical History / Comment(s): Umbilical hernia repair Past Anesthesia/Blood Transfusion Reactions: Motion Sickness Past Psychological History: No Psychological Hx Reported Smoking Status: Former smoker Past Alcohol Use History: None Reported Past Drug Use History: None Reported - Past Family History Mother History Unknown: Yes Family Medical History: Cancer Additional Family Medical History / Comment(s): Mother of ovarian cancer at the age of 78yrs. Father History Unknown: Yes Family Medical History: GI Bleed Additional Family Medical History / Comment(s): Father around age 50 from a bleeding ulcer. Brother(s) Family Medical History: No Reported History Additional Family Medical History / Comment(s): The patient has 2 brothers and one from pneumonia at age 59, 1 is alive with history of bariatric surgery. Sister(s) Family Medical History: No Reported History Additional Family Medical History / Comment(s): Patient has 2 sisters and one has history of gallbladder disease. Daughter(s) Family Medical History: Unable to Obtain Additional Family Medical History / Comment(s): Patient has one daughter with no major medical problems. Son(s) Additional Family Medical History / Comment(s): Patient has 2 sons and one has hypertension. General Exam - General Exam Comments Initial Comments: GENERAL: Well-appearing, well-nourished and in no acute distress. HEAD: Atraumatic, normocephalic. EYES: Pupils equal round and reactive to light, extraocular movements intact, sclera anicteric, conjunctiva are normal. ENT: TMs normal, nares patent, oropharynx clear without exudates. Moist mucous membranes. NECK: Normal range of motion, supple without lymphadenopathy or JVD. LUNGS: Mild bilateral wheezes, no rales or rhonchi. HEART: Regular rate and rhythm without murmurs, rubs or gallops. ABDOMEN: Soft, nontender, normoactive bowel sounds. No guarding, no rebound. No masses appreciated. : Deferred EXTREMITIES: Normal range of motion, no pitting or edema. No clubbing or cyanosis. NEUROLOGICAL: Cranial nerves II through XII grossly intact. Normal speech, normal gait. PSYCH: Normal mood, normal affect. SKIN: Warm, Dry, normal turgor, no rashes or lesions noted. Limitations: no limitations Course Vital Signs 03/11/20 03/11/20 10:17 11:19 Temperature 97.9 F Pulse Rate 99 86 Respiratory 20 18 Rate Blood Pressure 182/100 128/92 O2 Sat by Pulse 97 96 Oximetry Medical Decision Making - Medical Decision Making Patient is 59-year-old male here for possibly taking a second dose of Singulair this morning. The patient's blood pressure was elevated upon arrival however upon recheck 30 minutes later, blood pressures completely normal. Patient's exam is also within normal limits. Patient is currently being treated for a URI with steroids. I discussed with patient that he might have an upset stomach or increase in anxiety for the next 24 hours. He can continue with his regular medications. I recommended waiting until tomorrow to take next dose of Singulair. Patient is stable for discharge. Return parameters were discussed with the patient and he verbalized understanding. Case discussed with Dr. Palacios. Disposition Clinical Impression: Cough, Medication overdose Disposition: HOME SELF-CARE Condition: Stable Instructions (If sedation given, give patient instructions): Normal Exam (ED) Additional Instructions: Please return to the Emergency Department if symptoms worsen or any other concerns. Continue with regular scheduled home medications. Do not take singular again until tomorrow. Is patient prescribed a controlled substance at d/c from ED?: No Referrals: Roger Lane MD [Primary Care Provider] - 1-2 days
[2020-03-11 12:09] VITALS: BP 134/90; TEMP 98.4
== END 2020-03-11 12:07 | disposition home or self-care (01) ==
LOC: EC 10:13
DX: T65.91XA Toxic effect of unspecified substance, accidental (unintentional), initial encounter (principal); R05 Cough; Z87.891 Personal history of nicotine dependence; Z88.8 Allergy status to other drugs, medicaments and biological substances; J45.909 Unspecified asthma, uncomplicated; I10 Essential (primary) hypertension; E11.9 Type 2 diabetes mellitus without complications; Z79.51 Long term (current) use of inhaled steroids; Z79.84 Long term (current) use of oral hypoglycemic drugs; Z79.899 Other long term (current) drug therapy
CPT/HCPCS: 99283

== ENCOUNTER 2020-03-27 07:12 | Emergency (ER) | payer BC ==
[2020-03-27 07:18] VITALS: TEMP 98.6
[2020-03-27] MEDS ORDERED: IPRATROPIUM-ALBUTEROL 3 ML NEB INHALATION STA (07:41)
[2020-03-27] MEDS ORDERED: ONDANSETRON 4 MG/2 ML VIAL IVP STA (07:41)
[2020-03-27] MEDS ORDERED: LORazepam 2 MG/ML INJ IV STA (07:46)
--- NOTE | 2020-03-27 07:46 | ED ---
General Adult HPI - General Chief complaint: Recheck/Abnormal Lab/Rx Stated complaint: Dizzy,SOB Time Seen by Provider: 03/27/20 07:20 Source: patient, RN notes reviewed, old records reviewed Mode of arrival: wheelchair Limitations: no limitations - History of Present Illness Initial comments: This is a 59-year-old male who presents to the emergency department with multiple complaints. Patient states abdominal trauma but I have been occasionally nauseated over the last couple of days. Patient denies any vomiting. Patient states she's also had some itching of his. Patient states he is also having some hot feeling on his face occasionally over the last few days. Patient states he hasn't seen any actual rash or swelling on his face but he just feels warm and even his ears feel warm. Patient states currently is not expressing a. Patient denies any chest pain. Patient states his COPD is acting up a little but nothing out of the ordinary. Patient denies any palpitations. Patient denies abdominal pain. Patient states he is having some loose stools. Patient denies diarrhea. Patient states he also had some tingling in his feet this morning. Patient states occasionally his blood pressures been elevated as high as 170/99 but it was normal this morning. - Related Data Home Medications Medication Instructions Recorded Confirmed Albuterol Sulfate [Proair Hfa] 2 puff INHALATION RT-QID PRN 05/18/18 03/11/20 Montelukast Sodium [Singulair] 10 mg PO DAILY@0900 05/18/18 03/11/20 Acetaminophen [Tylenol Arthritis] 650 mg PO TID PRN 10/06/19 03/11/20 Albuterol Nebulized [Ventolin 2.5 mg INHALATION RT-QID PRN 10/15/19 03/11/20 Nebulized] Beclomethasone Dip 80 Mcg/Puff 2 puff INHALATION RT-BID 03/09/20 03/11/20 [Qvar 80 mcg] Multivitamins, Thera [Multivitamin 1 tab PO DAILY 03/09/20 03/11/20 (formulary)] amLODIPine [Norvasc] 10 mg PO DAILY@1400 03/09/20 03/11/20 lisinopriL [Prinivil] 20 mg PO DAILY@199903/09/20 03/11/20 Azithromycin [Zithromax Z-pack] See Taper PO DAILY 03/11/20 03/11/20 metFORMIN HCL [Glucophage] 850 mg PO W/BRKFST PRN 03/11/20 03/11/20 Previous Rx's Medication Instructions Recorded predniSONE 50 mg PO DAILY #5 tablet 03/09/20 Ondansetron Odt [Zofran Odt] 4 mg PO Q8HR PRN #10 tab 03/27/20 predniSONE [Deltasone] 40 mg PO DAILY #8 tab 03/27/20 Allergies Allergy/AdvReac Type Severity Reaction Status Date / Time Trazgja-Lzk-Box Reductase AdvReac MU Verified 03/27/20 07:18 Inhibitor Review of Systems ROS Statement: Those systems with pertinent positive or pertinent negative responses have been documented in the HPI. ROS Other: All systems not noted in ROS Statement are negative. Past Medical History Past Medical History: Asthma, Hyperlipidemia, Hypertension, Osteoarthritis (OA) Additional Past Medical History / Comment(s): Persistent asthma, NIDDM II- arthritis R knee, History of Any Multi-Drug Resistant Organisms: None Reported Past Surgical History: Hernia Repair Additional Past Surgical History / Comment(s): Umbilical hernia repair Past Anesthesia/Blood Transfusion Reactions: Motion Sickness Past Psychological History: No Psychological Hx Reported Smoking Status: Former smoker Past Alcohol Use History: None Reported Past Drug Use History: None Reported - Past Family History Mother History Unknown: Yes Family Medical History: Cancer Additional Family Medical History / Comment(s): Mother of ovarian cancer at the age of 78yrs. Father History Unknown: Yes Family Medical History: GI Bleed Additional Family Medical History / Comment(s): Father around age 50 from a bleeding ulcer. Brother(s) Family Medical History: No Reported History Additional Family Medical History / Comment(s): The patient has 2 brothers and one from pneumonia at age 59, 1 is alive with history of bariatric surgery. Sister(s) Family Medical History: No Reported History Additional Family Medical History / Comment(s): Patient has 2 sisters and one has history of gallbladder disease. Daughter(s) Family Medical History: Unable to Obtain Additional Family Medical History / Comment(s): Patient has one daughter with no major medical problems. Son(s) Additional Family Medical History / Comment(s): Patient has 2 sons and one has hypertension. General Exam - General Exam Comments Initial Comments: GENERAL: Patient is well-developed and well-nourished. Patient is nontoxic and well- hydrated and is in no acute distress. ENT: Neck is soft and supple. No significant lymphadenopathy is noted. Oropharynx is clear. Moist mucous membranes. Neck has full range of motion without eliciting any pain. I see no rash on the patient's face. EYES: The sclera were anicteric and conjunctiva were pink and moist. Extraocular movements were intact and pupils were equal round and reactive to light. Eyelids were unremarkable. PULMONARY: Patient has diffuse expiratory wheezing CARDIOVASCULAR: There is a regular rate and rhythm without any murmurs gallops or rubs. ABDOMEN: Soft and nontender with normal bowel sounds. SKIN: Skin is clear with no lesions or rashes and otherwise unremarkable. NEUROLOGIC: Patient is alert and oriented x3. Cranial nerves II through XII are grossly intact. Motor and sensory are also intact. Normal speech, volume and content. Symmetrical smile. MUSCULOSKELETAL: Normal extremities with adequate strength and full range of motion. LYMPHATICS: No significant lymphadenopathy is noted PSYCHIATRIC: Normal psychiatric evaluation. Limitations: no limitations Course Vital Signs 03/27/20 03/27/20 03/27/20 07:15 07:18 08:18 Temperature 98.6 F Pulse Rate 98 97 Respiratory 18 20 20 Rate Blood Pressure 145/85 128/84 O2 Sat by Pulse 97 95 Oximetry 03/27/20 03/27/20 08:24 08:28 Temperature Pulse Rate 97 Respiratory 20 Rate Blood Pressure O2 Sat by Pulse Oximetry Medical Decision Making - Medical Decision Making EKG shows normal sinus rhythm at 93 bpm SD interval is on a 72 QRS is under 4 QT interval 358 QTC is 445. Patient's EKG shows no ST segment elevation or depression. Patient received albuterol treatment he was feeling much better and sounded much more clear. There was still some scattered wheezing. - Lab Data Result diagrams: 03/27/20 08:01 03/27/20 08: Lab Results 03/27/20 03/27/20 Range/Units 08:01 08:01 WBC 8.0 (3.8-10.6) k/uL RBC 4.89 (4.30-5.90) m/uL Hgb 14.7 (13.0-17.5) gm/dL Hct 45.1 (39.0-53.0) % MCV 92.1 (80.0-100.0) fL MCH 30.1 (25.0-35.0) pg MCHC 32.7 (31.0-37.0) g/dL RDW 13.1 (11.5-15.5) % Plt Count 308 (150-450) k/uL Neutrophils % 56 % Lymphocytes % 27 % Monocytes % 8 % Eosinophils % 6 % Basophils % 1 % Neutrophils # 4.5 (1.3-7.7) k/uL Lymphocytes # 2.1 (1.0-4.8) k/uL Monocytes # 0.6 (0-1.0) k/uL Eosinophils # 0.5 (0-0.7) k/uL Basophils # 0.1 (0-0.2) k/uL Sodium 138 (137-145) mmol/L Potassium 4.0 (3.5-5.1) mmol/L Chloride 109 H (98-107) mmol/L Carbon Dioxide 24 (22-30) mmol/L Anion Gap 5 mmol/L BUN 19 (9-20) mg/dL Creatinine 0.71 (0.66-1.25) mg/dL Est GFR (CKD-EPI)AfAm >90 (>60 ml/min/1.73 sqM) Est GFR (CKD-EPI)NonAf >90 (>60 ml/min/1.73 sqM) Glucose 127 H (74-99) mg/dL Calcium 8.7 (8.4-10.2) mg/dL Total Bilirubin 0.8 (0.2-1.3) mg/dL AST 21 (17-59) U/L ALT 13 (4-49) U/L Alkaline Phosphatase 55 (38-126) U/L Total Protein 6.4 (6.3-8.2) g/dL Albumin 3.9 (3.5-5.0) g/dL Disposition Clinical Impression: Nausea Disposition: HOME SELF-CARE Instructions (If sedation given, give patient instructions): Acute Nausea and Vomiting (ED) Prescriptions: predniSONE [Deltasone] 40 mg PO DAILY #8 tab Ondansetron Odt [Zofran Odt] 4 mg PO Q8HR PRN #10 tab PRN Reason: Nausea Is patient prescribed a controlled substance at d/c from ED?: No Referrals: Roger Lane MD [Primary Care Provider] - 1-2 days
[2020-03-27 08:13] LABS: Basophils # (A) 0.1 k/uL (0-0.2); Basophils % (A) 1 %; Eosinophils # (A) 0.5 k/uL (0-0.7); Eosinophils % (A) 6 %; HCT 45.1 % (39.0-53.0); HGB 14.7 gm/dL (13.0-17.5); Lymphocytes # (A) 2.1 k/uL (1.0-4.8); Lymphocytes % (A) 27 %; MCH 30.1 pg (25.0-35.0); MCHC 32.7 g/dL (31.0-37.0); MCV 92.1 fL (80.0-100.0); Mean Platelet Volume 6.5; Monocytes # (A) 0.6 k/uL (0-1.0); Monocytes % (A) 8 %; Neutrophils # (A) 4.5 k/uL (1.3-7.7); Neutrophils % (A) 56 %; Platelet Count 308 k/uL (150-450); RBC 4.89 m/uL (4.30-5.90); RDW 13.1 % (11.5-15.5)
[2020-03-27 08:24] VITALS: RESP 20
[2020-03-27 08:26] LABS: ALT 13 U/L (4-49); AST 21 U/L (17-59); African American GFR (CKD) >90 (>60 ml/min/1.73 sqM); Albumin 3.9 g/dL (3.5-5.0); Alkaline Phosphatase 55 U/L (38-126); Anion Gap 5 mmol/L; Blood Urea Nitrogen 19 mg/dL (9-20); Calcium 8.7 mg/dL (8.4-10.2); Carbon Dioxide 24 mmol/L (22-30); Chloride 109 mmol/L (98-107); Glucose 127 mg/dL (74-99); Non-African American GFR(CKD) >90 (>60 ml/min/1.73 sqM); Sodium 138 mmol/L (137-145); Total Bilirubin 0.8 mg/dL (0.2-1.3); Total Protein 6.4 g/dL (6.3-8.2)
[2020-03-27 08:58] VITALS: BP 131/85; PULSE 99
== END 2020-03-27 08:53 | disposition home or self-care (01) ==
LOC: EC 07:12
DX: R11.0 Nausea (principal); R20.2 Paresthesia of skin; L29.8 Other pruritus; J45.909 Unspecified asthma, uncomplicated; I10 Essential (primary) hypertension; E11.9 Type 2 diabetes mellitus without complications; Z79.899 Other long term (current) drug therapy; Z87.891 Personal history of nicotine dependence; Z88.8 Allergy status to other drugs, medicaments and biological substances; Z20.828 Contact with and (suspected) exposure to other viral communicable diseases
CPT/HCPCS: 99285 ×2; 96374 ×2; 96375 ×2; 99284; 36415; 94640; 93005; 80053; 85025; U0003; J2060; J2405

== ENCOUNTER 2020-06-16 11:22 | Emergency (ER) | payer BC ==
[2020-06-16] MEDS ORDERED: methylPREDNISolone SOD SUCCI 125 MG/2 ML VIAL IV STA (11:40)
[2020-06-16] MEDS ORDERED: ALBUTEROL NEBULIZED 2.5 MG/3 ML INHALATION STA (11:40)
[2020-06-16] MEDS ORDERED: IPRATROPIUM 0.5 MG/2.5 ML NEBU INHALATION STA (11:40)
--- NOTE | 2020-06-16 11:43 | ED ---
General Adult HPI - General Chief complaint: Shortness of Breath Stated complaint: ALEXUS Time Seen by Provider: 06/16/20 11:30 Source: patient, RN notes reviewed, old records reviewed Mode of arrival: wheelchair Limitations: no limitations - History of Present Illness Initial comments: This is a 60-year-old male who presents emergency Department with a past medical history significant for asthma and high blood pressure. Patient comes in today because he states for the last couple of weeks she's had shortness of breath and he has been taking breathing treatments which seemed to help over the last 3 days the symptoms have worsened. Patient states even after treatments now he is not getting much relief. Patient denies any chest pain or palpitations. Patient denies any fever chills. Patient states that he does have a cough but occasional sputum production. Patient denies any leg swelling or calf tenderness. Patient denies abdominal pain patient denies nausea vomiting diarrhea. - Related Data Home Medications Medication Instructions Recorded Confirmed Albuterol Sulfate [Proair Hfa] 2 puff INHALATION RT-QID PRN 05/18/18 06/16/20 Montelukast Sodium [Singulair] 10 mg PO DAILY@0900 05/18/18 06/16/20 Acetaminophen [Tylenol Arthritis] 650 mg PO TID PRN 10/06/19 06/16/20 Albuterol Nebulized [Ventolin 2.5 mg INHALATION RT-QID PRN 10/15/19 06/16/20 Nebulized] Multivitamins, Thera [Multivitamin 1 tab PO DAILY 03/09/20 06/16/20 (formulary)] lisinopriL [Prinivil] 20 mg PO DAILY@1500 03/09/20 06/16/20 Fluticasone Propionate [Flovent 2 puff INHALATION RT-BID 06/16/20 06/16/20 Hfa 220 mcg] Previous Rx's Medication Instructions Recorded Azithromycin [Zithromax Tri-Gama] 500 mg PO DAILY #3 tab 06/16/20 predniSONE [Deltasone] 40 mg PO DAILY #8 tab 06/16/20 Allergies Allergy/AdvReac Type Severity Reaction Status Date / Time Hqtyvye-Kjj-Vha Reductase AdvReac MU Verified 06/16/20 13:28 Inhibitor Review of Systems ROS Statement: Those systems with pertinent positive or pertinent negative responses have been documented in the HPI. ROS Other: All systems not noted in ROS Statement are negative. Past Medical History Past Medical History: Asthma, Hyperlipidemia, Hypertension, Osteoarthritis (OA) Additional Past Medical History / Comment(s): Persistent asthma, NIDDM II- arthritis R knee, History of Any Multi-Drug Resistant Organisms: None Reported Past Surgical History: Hernia Repair Additional Past Surgical History / Comment(s): Umbilical hernia repair Past Anesthesia/Blood Transfusion Reactions: Motion Sickness Past Psychological History: No Psychological Hx Reported Smoking Status: Former smoker Past Alcohol Use History: None Reported Past Drug Use History: None Reported - Past Family History Mother History Unknown: Yes Family Medical History: Cancer Additional Family Medical History / Comment(s): Mother of ovarian cancer at the age of 78yrs. Father History Unknown: Yes Family Medical History: GI Bleed Additional Family Medical History / Comment(s): Father around age 50 from a bleeding ulcer. Brother(s) Family Medical History: No Reported History Additional Family Medical History / Comment(s): The patient has 2 brothers and one from pneumonia at age 59, 1 is alive with history of bariatric surgery. Sister(s) Family Medical History: No Reported History Additional Family Medical History / Comment(s): Patient has 2 sisters and one has history of gallbladder disease. Daughter(s) Family Medical History: Unable to Obtain Additional Family Medical History / Comment(s): Patient has one daughter with no major medical problems. Son(s) Additional Family Medical History / Comment(s): Patient has 2 sons and one has hypertension. General Exam - General Exam Comments Initial Comments: GENERAL: Patient is well-developed and well-nourished. Patient is nontoxic and well- hydrated and is in mild distress. ENT: Neck is soft and supple. No significant lymphadenopathy is noted. Oropharynx is clear. Moist mucous membranes. Neck has full range of motion without eliciting any pain. EYES: The sclera were anicteric and conjunctiva were pink and moist. Extraocular movements were intact and pupils were equal round and reactive to light. Eyelids were unremarkable. PULMONARY: Patient has diffuse expiratory wheezing CARDIOVASCULAR: There is a regular rate and rhythm without any murmurs gallops or rubs. Femoral pulses are equal bilaterally ABDOMEN: Soft and nontender with normal bowel sounds. No palpable organomegaly was noted. There is no palpable pulsatile mass. SKIN: Skin is clear with no lesions or rashes and otherwise unremarkable. NEUROLOGIC: Patient is alert and oriented x3. Cranial nerves II through XII are grossly intact. Motor and sensory are also intact. Normal speech, volume and content. Symmetrical smile. MUSCULOSKELETAL: Normal extremities with adequate strength and full range of motion. LYMPHATICS: No significant lymphadenopathy is noted PSYCHIATRIC: Normal psychiatric evaluation. Limitations: no limitations Course Vital Signs 06/16/20 06/16/20 06/16/20 11:27 12:05 12:25 Temperature 99.8 F H Pulse Rate 102 H 108 H 108 H Respiratory 20 Rate Blood Pressure 159/92 O2 Sat by Pulse 96 Oximetry 06/16/20 13:10 Temperature 98.3 F Pulse Rate 98 Respiratory 18 Rate Blood Pressure 146/102 O2 Sat by Pulse 95 Oximetry Medical Decision Making - Medical Decision Making EKG shows normal sinus rhythm at 90 bpm TX interval 164 QRS is 94 QT interval 336 QTC is 428. Patient's EKG shows no ST segment elevation or depression. Chest x-ray shows no acute abnormality. I gave the patient 2 breathing treatments and steroids in the emergency department he is feeling considerably better. Patient had no wheezing at this time. Because the patient was coughing more occasional coughing up some sputum I gave the patient a shot of Rocephin and sent the patient home on Zithromax - Lab Data Result diagrams: 06/16/20 12:02 06/16/20 12:02 Lab Results 06/16/20 06/16/20 06/16/20 Range/Units 12:02 12:02 12:02 WBC 7.9 (3.8-10.6) k/uL RBC 5.24 (4.30-5.90) m/uL Hgb 16.4 (13.0-17.5) gm/dL Hct 50.2 (39.0-53.0) % MCV 95.8 (80.0-100.0) fL MCH 31.2 (25.0-35.0) pg MCHC 32.6 (31.0-37.0) g/dL RDW 13.3 (11.5-15.5) % Plt Count 274 (150-450) k/uL Neutrophils % 53 % Lymphocytes % 27 % Monocytes % 9 % Eosinophils % 7 % Basophils % 1 % Neutrophils # 4.2 (1.3-7.7) k/uL Lymphocytes # 2.2 (1.0-4.8) k/uL Monocytes # 0.7 (0-1.0) k/uL Eosinophils # 0.5 (0-0.7) k/uL Basophils # 0.1 (0-0.2) k/uL PT 9.4 (9.0-12.0) sec INR 0.9 (<1.2) APTT 23.0 (22.0-30.0) sec D-Dimer 0.59 (<0.60) mg/L FEU Sodium 138 (137-145) mmol/L Potassium 4.2 (3.5-5.1) mmol/L Chloride 110 H (98-107) mmol/L Carbon Dioxide 25 (22-30) mmol/L Anion Gap 3 mmol/L BUN 17 (9-20) mg/dL Creatinine 0.82 (0.66-1.25) mg/dL Est GFR (CKD-EPI)AfAm >90 (>60 ml/min/1.73 sqM) Est GFR (CKD-EPI)NonAf >90 (>60 ml/min/1.73 sqM) Glucose 122 H (74-99) mg/dL Plasma Lactic Acid Jorge (0.7-2.0) mmol/L Calcium 9.2 (8.4-10.2) mg/dL Magnesium 2.1 (1.6-2.3) mg/dL Total Bilirubin 0.6 (0.2-1.3) mg/dL AST 20 (17-59) U/L ALT 11 (4-49) U/L Alkaline Phosphatase 59 (38-126) U/L Troponin I (0.000-0.034) ng/mL NT-Pro-B Natriuret Pep pg/mL Total Protein 6.6 (6.3-8.2) g/dL Albumin 3.9 (3.5-5.0) g/dL 06/16/20 06/16/20 06/16/20 Range/Units 12:02 12:02 12:02 WBC (3.8-10.6) k/uL RBC (4.30-5.90) m/uL Hgb (13.0-17.5) gm/dL Hct (39.0-53.0) % MCV (80.0-100.0) fL MCH (25.0-35.0) pg MCHC (31.0-37.0) g/dL RDW (11.5-15.5) % Plt Count (150-450) k/uL Neutrophils % % Lymphocytes % % Monocytes % % Eosinophils % % Basophils % % Neutrophils # (1.3-7.7) k/uL Lymphocytes # (1.0-4.8) k/uL Monocytes # (0-1.0) k/uL Eosinophils # (0-0.7) k/uL Basophils # (0-0.2) k/uL PT (9.0-12.0) sec INR (<1.2) APTT (22.0-30.0) sec D-Dimer (<0.60) mg/L FEU Sodium (137-145) mmol/L Potassium (3.5-5.1) mmol/L Chloride (98-107) mmol/L Carbon Dioxide (22-30) mmol/L Anion Gap mmol/L BUN (9-20) mg/dL Creatinine (0.66-1.25) mg/dL Est GFR (CKD-EPI)AfAm (>60 ml/min/1.73 sqM) Est GFR (CKD-EPI)NonAf (>60 ml/min/1.73 sqM) Glucose (74-99) mg/dL Plasma Lactic Acid Jorge 1.3 (0.7-2.0) mmol/L Calcium (8.4-10.2) mg/dL Magnesium (1.6-2.3) mg/dL Total Bilirubin (0.2-1.3) mg/dL AST (17-59) U/L ALT (4-49) U/L Alkaline Phosphatase (38-126) U/L Troponin I <0.012 (0.000-0.034) ng/mL NT-Pro-B Natriuret Pep 13 pg/mL Total Protein (6.3-8.2) g/dL Albumin (3.5-5.0) g/dL Disposition Clinical Impression: Bronchitis with bronchospasm Disposition: HOME SELF-CARE Condition: Good Instructions (If sedation given, give patient instructions): Bronchospasm (ED), Acute Bronchitis (ED) Prescriptions: predniSONE [Deltasone] 40 mg PO DAILY #8 tab Azithromycin [Zithromax Tri-Gama] 500 mg PO DAILY #3 tab Is patient prescribed a controlled substance at d/c from ED?: No Referrals: Roger Lane MD [Primary Care Provider] - 1-2 days Time of Disposition: 13:38
[2020-06-16 12:24] LABS: Basophils # (A) 0.1 k/uL (0-0.2); Basophils % (A) 1 %; Eosinophils # (A) 0.5 k/uL (0-0.7); Eosinophils % (A) 7 %; HCT 50.2 % (39.0-53.0); HGB 16.4 gm/dL (13.0-17.5); Lymphocytes # (A) 2.2 k/uL (1.0-4.8); Lymphocytes % (A) 27 %; MCH 31.2 pg (25.0-35.0); MCHC 32.6 g/dL (31.0-37.0); MCV 95.8 fL (80.0-100.0); Mean Platelet Volume 6.4; Monocytes # (A) 0.7 k/uL (0-1.0); Monocytes % (A) 9 %; Neutrophils # (A) 4.2 k/uL (1.3-7.7); Neutrophils % (A) 53 %; Platelet Count 274 k/uL (150-450); RBC 5.24 m/uL (4.30-5.90); RDW 13.3 % (11.5-15.5); WBC 7.9 k/uL (3.8-10.6)
[2020-06-16 12:34] LABS: ALT 11 U/L (4-49); AST 20 U/L (17-59); African American GFR (CKD) >90 (>60 ml/min/1.73 sqM); Albumin 3.9 g/dL (3.5-5.0); Alkaline Phosphatase 59 U/L (38-126); Anion Gap 3 mmol/L; Blood Urea Nitrogen 17 mg/dL (9-20); Calcium 9.2 mg/dL (8.4-10.2); Carbon Dioxide 25 mmol/L (22-30); Chloride 110 mmol/L (98-107); Glucose 122 mg/dL (74-99); Magnesium 2.1 mg/dL (1.6-2.3); Non-African American GFR(CKD) >90 (>60 ml/min/1.73 sqM); Potassium 4.2 mmol/L (3.5-5.1); Sodium 138 mmol/L (137-145); Total Bilirubin 0.6 mg/dL (0.2-1.3); Total Protein 6.6 g/dL (6.3-8.2)
[2020-06-16 12:50] LABS: D-Dimer 0.59 mg/L FEU (<0.60); INR 0.9 (<1.2); Prothrombin Time 9.4 sec (9.0-12.0)
[2020-06-16 13:10] VITALS: RESP 18; TEMP 98.3
--- NOTE | 2020-06-16 13:32 | XR ---
EXAMINATION TYPE: XR chest 2V DATE OF EXAM: 06/16/2020 COMPARISON: 03/09/2020 HISTORY: 60-year-old male shortness of breath, difficulty breathing TECHNIQUE: PA and lateral views FINDINGS: Heart normal size. Aorta and pulmonary vasculature within normal limits. Mild interstitial prominence is unchanged. Some strandy atelectasis at the left base. Mild hyperinflation. IMPRESSION: Possible underlying COPD. No acute process seen.
[2020-06-16] MEDS ORDERED: cefTRIAXone IN SWFI 1,000 MG/10 ML SYRINGE IVP STA (13:38)
[2020-06-16] MEDS ORDERED: cefTRIAXone 1,000 MG VIAL (IM USE) IM STA (13:51)
[2020-06-16 14:02] VITALS: BP 158/79; PULSE 97
== END 2020-06-16 14:13 | disposition home or self-care (01) ==
LOC: EC 11:22
DX: J20.9 Acute bronchitis, unspecified (principal); J45.909 Unspecified asthma, uncomplicated; E78.5 Hyperlipidemia, unspecified; I10 Essential (primary) hypertension; M19.90 Unspecified osteoarthritis, unspecified site; Z79.51 Long term (current) use of inhaled steroids; Z79.899 Other long term (current) drug therapy; Z87.891 Personal history of nicotine dependence
CPT/HCPCS: 99285; 96374; 96372; 36415; 94640; 93005; 85379; 83880; 80053; 83605; 83735; 84484; 85025; 85610; 85730; 71046; J2930; J0696

== ENCOUNTER 2020-11-19 03:19 | Emergency (ER) | payer BC ==
--- NOTE | 2020-11-19 03:39 | ED ---
General Adult HPI - General Chief complaint: Upper Respiratory Infection Stated complaint: Fever Time Seen by Provider: 11/19/20 03:27 Source: patient Mode of arrival: wheelchair Limitations: no limitations - History of Present Illness Initial comments: This patient is 60-year-old man with history of asthma who complains approximate 5 days of intermittent fevers, cough, myalgias. The patient initially thought things may be related to his asthma as is been acting up more frequently over the past 2 months. He presents tonight because the fever was persistent Onset/Timin -: days(s) Severity scale (1-10): 0 Associated Symptoms: cough, fever/chills, shortness of breath Treatments Prior to Arrival: other (tylenol) - Related Data Home Medications Medication Instructions Recorded Confirmed Albuterol Sulfate [Proair Hfa] 2 puff INHALATION RT-QID PRN 05/18/18 06/16/20 Montelukast Sodium [Singulair] 10 mg PO DAILY@0900 05/18/18 06/16/20 Acetaminophen [Tylenol Arthritis] 650 mg PO TID PRN 10/06/19 06/16/20 Albuterol Nebulized [Ventolin 2.5 mg INHALATION RT-QID PRN 10/15/19 06/16/20 Nebulized] Multivitamins, Thera [Multivitamin 1 tab PO DAILY 03/09/20 06/16/20 (formulary)] lisinopriL [Prinivil] 20 mg PO DAILY@1500 03/09/20 06/16/20 Fluticasone Propionate [Flovent 2 puff INHALATION RT-BID 06/16/20 06/16/20 Hfa 220 mcg] Previous Rx's Medication Instructions Recorded Azithromycin [Zithromax Tri-Gama] 500 mg PO DAILY #3 tab 06/16/20 predniSONE [Deltasone] 40 mg PO DAILY #8 tab 06/16/20 Allergies Allergy/AdvReac Type Severity Reaction Status Date / Time Ymvczrs-Jas-Gip Reductase AdvReac MU Verified 11/19/20 03:26 Inhibitor Review of Systems ROS Statement: Those systems with pertinent positive or pertinent negative responses have been documented in the HPI. ROS Other: All systems not noted in ROS Statement are negative. Constitutional: Reports: fever ENT: Reports: congestion Respiratory: Reports: cough, dyspnea, wheezes. Denies: hemoptysis Cardiovascular: Denies: chest pain, palpitations, orthopnea, edema Gastrointestinal: Denies: abdominal pain, nausea, vomiting Genitourinary: Denies: dysuria, hematuria Musculoskeletal: Denies: back pain Skin: Denies: rash Neurological: Denies: headache, weakness, numbness Past Medical History Past Medical History: Asthma, Hyperlipidemia, Hypertension, Osteoarthritis (OA) Additional Past Medical History / Comment(s): Persistent asthma, NIDDM II- arthritis R knee, History of Any Multi-Drug Resistant Organisms: None Reported Past Surgical History: Hernia Repair Additional Past Surgical History / Comment(s): Umbilical hernia repair Past Anesthesia/Blood Transfusion Reactions: Motion Sickness Past Psychological History: No Psychological Hx Reported Smoking Status: Former smoker Past Alcohol Use History: None Reported Past Drug Use History: None Reported - Past Family History Mother History Unknown: Yes Family Medical History: Cancer Additional Family Medical History / Comment(s): Mother of ovarian cancer at the age of 78yrs. Father History Unknown: Yes Family Medical History: GI Bleed Additional Family Medical History / Comment(s): Father around age 50 from a bleeding ulcer. Brother(s) Family Medical History: No Reported History Additional Family Medical History / Comment(s): The patient has 2 brothers and one from pneumonia at age 59, 1 is alive with history of bariatric surgery. Sister(s) Family Medical History: No Reported History Additional Family Medical History / Comment(s): Patient has 2 sisters and one has history of gallbladder disease. Daughter(s) Family Medical History: Unable to Obtain Additional Family Medical History / Comment(s): Patient has one daughter with no major medical problems. Son(s) Additional Family Medical History / Comment(s): Patient has 2 sons and one has hypertension. General Exam Limitations: no limitations General appearance: alert, in no apparent distress Head exam: Present: atraumatic, normocephalic Eye exam: Present: normal appearance. Absent: scleral icterus, conjunctival injection Respiratory exam: Absent: respiratory distress, wheezes, rales, rhonchi, stridor Cardiovascular Exam: Present: normal rhythm, tachycardia (Rate 104), normal heart sounds. Absent: systolic murmur, diastolic murmur, rubs, gallop GI/Abdominal exam: Present: soft. Absent: distended, tenderness, guarding, rebound, rigid, mass Extremities exam: Present: normal inspection, normal capillary refill. Absent: pedal edema, calf tenderness Back exam: Present: normal inspection. Absent: CVA tenderness (R), CVA tenderness (L) Neurological exam: Present: alert Skin exam: Present: warm, dry, intact, normal color. Absent: rash Course Vital Signs 11/19/20 11/19/20 11/19/20 03:21 04:45 05:08 Temperature 100.9 F H 99.3 F Pulse Rate 108 H 110 H Respiratory 20 25 H Rate Blood Pressure 135/82 159/99 O2 Sat by Pulse 93 L 94 L Oximetry EKG Findings - EKG Results: EKG: interpreted by ERMD, sinus rhythm (With a PSVC. Rate 101 bpm), normal axis, normal QRS, normal ST/T EKG shows: tachycardia Medical Decision Making - Medical Decision Making Patient is 60-year-old man presenting with fever and cough, found to have co ronavirus infection. He was offered and declined, after discussion of benefits and risks, the monoclonal antibody therapy. Patient was ambulated around the department and saturations were still at 94% - Lab Data Result diagrams: 11/19/20 03:54 11/19/20 03:54 Lab Results 11/19/20 11/19/20 11/19/20 Range/Units 03:54 03:54 03:54 WBC 4.5 (3.8-10.6) k/uL RBC 5.61 (4.30-5.90) m/uL Hgb 17.9 H (13.0-17.5) gm/dL Hct 51.4 (39.0-53.0) % MCV 91.5 (80.0-100.0) fL MCH 31.9 (25.0-35.0) pg MCHC 34.8 (31.0-37.0) g/dL RDW 13.3 (11.5-15.5) % Plt Count 190 (150-450) k/uL MPV 6.4 Neutrophils % 62 % Lymphocytes % 18 % Monocytes % 15 % Eosinophils % 1 % Basophils % 2 % Neutrophils # 2.8 (1.3-7.7) k/uL Lymphocytes # 0.8 L (1.0-4.8) k/uL Monocytes # 0.7 (0-1.0) k/uL Eosinophils # 0.0 (0-0.7) k/uL Basophils # 0.1 (0-0.2) k/uL PT 9.6 (9.0-12.0) sec INR 0.9 (<1.2) APTT 23.2 (22.0-30.0) sec Sodium (137-145) mmol/L Potassium (3.5-5.1) mmol/L Chloride (98-107) mmol/L Carbon Dioxide (22-30) mmol/L Anion Gap mmol/L BUN (9-20) mg/dL Creatinine (0.66-1.25) mg/dL Est GFR (CKD-EPI)AfAm (>60 ml/min/1.73 sqM) Est GFR (CKD-EPI)NonAf (>60 ml/min/1.73 sqM) Glucose (74-99) mg/dL Plasma Lactic Acid Jorge (0.7-2.0) mmol/L Calcium (8.4-10.2) mg/dL Total Bilirubin (0.2-1.3) mg/dL AST (17-59) U/L ALT (4-49) U/L Alkaline Phosphatase (38-126) U/L Troponin I (0.000-0.034) ng/mL Total Protein (6.3-8.2) g/dL Albumin (3.5-5.0) g/dL Urine Color Yellow Urine Appearance Clear (Clear) Urine pH 5.5 (5.0-8.0) Ur Specific [place] 1.036 H (1.001-1.035) Urine Protein 1+ H (Negative) Urine Glucose (UA) Negative (Negative) Urine Ketones Negative (Negative) Urine Blood Trace H (Negative) Urine Nitrite Negative (Negative) Urine Bilirubin Negative (Negative) Urine Urobilinogen <2.0 (<2.0) mg/dL Ur Leukocyte Esterase Negative (Negative) Urine RBC 2 (0-5) /hpf Urine WBC 3 (0-5) /hpf Calcium Oxalate Crystal Occasional H (None) /hpf Amorphous Sediment Rare H (None) /hpf Hyaline Casts 4 H (0-2) /lpf Urine Mucus Many H (None) /hpf Coronavirus (PCR) (Not Detectd) 11/19/20 11/19/20 11/19/20 Range/Units 03:54 03:54 03:54 WBC (3.8-10.6) k/uL RBC (4.30-5.90) m/uL Hgb (13.0-17.5) gm/dL Hct (39.0-53.0) % MCV (80.0-100.0) fL MCH (25.0-35.0) pg MCHC (31.0-37.0) g/dL RDW (11.5-15.5) % Plt Count (150-450) k/uL MPV Neutrophils % % Lymphocytes % % Monocytes % % Eosinophils % % Basophils % % Neutrophils # (1.3-7.7) k/uL Lymphocytes # (1.0-4.8) k/uL Monocytes # (0-1.0) k/uL Eosinophils # (0-0.7) k/uL Basophils # (0-0.2) k/uL PT (9.0-12.0) sec INR (<1.2) APTT (22.0-30.0) sec Sodium 135 L (137-145) mmol/L Potassium 4.6 (3.5-5.1) mmol/L Chloride 103 (98-107) mmol/L Carbon Dioxide 24 (22-30) mmol/L Anion Gap 8 mmol/L BUN 15 (9-20) mg/dL Creatinine 0.85 (0.66-1.25) mg/dL Est GFR (CKD-EPI)AfAm >90 (>60 ml/min/1.73 sqM) Est GFR (CKD-EPI)NonAf >90 (>60 ml/min/1.73 sqM) Glucose 139 H (74-99) mg/dL Plasma Lactic Acid Jorge 2.0 (0.7-2.0) mmol/L Calcium 8.7 (8.4-10.2) mg/dL Total Bilirubin 0.9 (0.2-1.3) mg/dL AST 33 (17-59) U/L ALT 17 (4-49) U/L Alkaline Phosphatase 52 (38-126) U/L Troponin I <0.012 (0.000-0.034) ng/mL Total Protein 7.2 (6.3-8.2) g/dL Albumin 4.2 (3.5-5.0) g/dL Urine Color Urine Appearance (Clear) Urine pH (5.0-8.0) Ur Specific [place] (1.001-1.035) Urine Protein (Negative) Urine Glucose (UA) (Negative) Urine Ketones (Negative) Urine Blood (Negative) Urine Nitrite (Negative) Urine Bilirubin (Negative) Urine Urobilinogen (<2.0) mg/dL Ur Leukocyte Esterase (Negative) Urine RBC (0-5) /hpf Urine WBC (0-5) /hpf Calcium Oxalate Crystal (None) /hpf Amorphous Sediment (None) /hpf Hyaline Casts (0-2) /lpf Urine Mucus (None) /hpf Coronavirus (PCR) (Not Detectd) 11/19/20 Range/Units 03:54 WBC (3.8-10.6) k/uL RBC (4.30-5.90) m/uL Hgb (13.0-17.5) gm/dL Hct (39.0-53.0) % MCV (80.0-100.0) fL MCH (25.0-35.0) pg MCHC (31.0-37.0) g/dL RDW (11.5-15.5) % Plt Count (150-450) k/uL MPV Neutrophils % % Lymphocytes % % Monocytes % % Eosinophils % % Basophils % % Neutrophils # (1.3-7.7) k/uL Lymphocytes # (1.0-4.8) k/uL Monocytes # (0-1.0) k/uL Eosinophils # (0-0.7) k/uL Basophils # (0-0.2) k/uL PT (9.0-12.0) sec INR (<1.2) APTT (22.0-30.0) sec Sodium (137-145) mmol/L Potassium (3.5-5.1) mmol/L Chloride (98-107) mmol/L Carbon Dioxide (22-30) mmol/L Anion Gap mmol/L BUN (9-20) mg/dL Creatinine (0.66-1.25) mg/dL Est GFR (CKD-EPI)AfAm (>60 ml/min/1.73 sqM) Est GFR (CKD-EPI)NonAf (>60 ml/min/1.73 sqM) Glucose (74-99) mg/dL Plasma Lactic Acid Jorge (0.7-2.0) mmol/L Calcium (8.4-10.2) mg/dL Total Bilirubin (0.2-1.3) mg/dL AST (17-59) U/L ALT (4-49) U/L Alkaline Phosphatase (38-126) U/L Troponin I (0.000-0.034) ng/mL Total Protein (6.3-8.2) g/dL Albumin (3.5-5.0) g/dL Urine Color Urine Appearance (Clear) Urine pH (5.0-8.0) Ur Specific [place] (1.001-1.035) Urine Protein (Negative) Urine Glucose (UA) (Negative) Urine Ketones (Negative) Urine Blood (Negative) Urine Nitrite (Negative) Urine Bilirubin (Negative) Urine Urobilinogen (<2.0) mg/dL Ur Leukocyte Esterase (Negative) Urine RBC (0-5) /hpf Urine WBC (0-5) /hpf Calcium Oxalate Crystal (None) /hpf Amorphous Sediment (None) /hpf Hyaline Casts (0-2) /lpf Urine Mucus (None) /hpf Coronavirus (PCR) Detected A (Not Detectd) Disposition Clinical Impression: COVID-19 Disposition: HOME SELF-CARE Condition: Fair Instructions (If sedation given, give patient instructions): Coronavirus Disease 2019 (COVID-19) Is patient prescribed a controlled substance at d/c from ED?: No Referrals: Roger Lane MD [Primary Care Provider] - 1-2 days
[2020-11-19 04:20] LABS: ALT 17 U/L (4-49); AST 33 U/L (17-59); African American GFR (CKD) >90 (>60 ml/min/1.73 sqM); Albumin 4.2 g/dL (3.5-5.0); Alkaline Phosphatase 52 U/L (38-126); Anion Gap 8 mmol/L; Blood Urea Nitrogen 15 mg/dL (9-20); Calcium 8.7 mg/dL (8.4-10.2); Carbon Dioxide 24 mmol/L (22-30); Chloride 103 mmol/L (98-107); Glucose 139 mg/dL (74-99); Non-African American GFR(CKD) >90 (>60 ml/min/1.73 sqM); Potassium 4.6 mmol/L (3.5-5.1); Sodium 135 mmol/L (137-145); Total Bilirubin 0.9 mg/dL (0.2-1.3); Total Protein 7.2 g/dL (6.3-8.2)
--- NOTE | 2020-11-19 04:21 | XR ---
EXAM: XR Chest, 1 View CLINICAL HISTORY: Fever. TECHNIQUE: Frontal view of the chest. COMPARISON: June 16, 2020 FINDINGS: Lungs: The lungs are clear of acute findings or masses. There may be emphysematous changes in the upper lobes. Pleural space: Unremarkable. No pneumothorax or pleural fluid. Heart: Unremarkable. No cardiomegaly. Mediastinum: Unremarkable. Bones/joints: No acute findings. IMPRESSION: No acute findings in the chest.
[2020-11-19 04:24] LABS: Basophils # (A) 0.1 k/uL (0-0.2); Basophils % (A) 2 %; Eosinophils % (A) 1 %; HCT 51.4 % (39.0-53.0); HGB 17.9 gm/dL (13.0-17.5); Lymphocytes # (A) 0.8 k/uL (1.0-4.8); Lymphocytes % (A) 18 %; MCH 31.9 pg (25.0-35.0); MCHC 34.8 g/dL (31.0-37.0); MCV 91.5 fL (80.0-100.0); Mean Platelet Volume 6.4; Monocytes # (A) 0.7 k/uL (0-1.0); Monocytes % (A) 15 %; Neutrophils # (A) 2.8 k/uL (1.3-7.7); Neutrophils % (A) 62 %; Platelet Count 190 k/uL (150-450); RBC 5.61 m/uL (4.30-5.90); RDW 13.3 % (11.5-15.5); WBC 4.5 k/uL (3.8-10.6)
[2020-11-19 04:30] LABS: Amorphous Sediment,Urine Rare /hpf; Appearance,Urine Clear (Clear); Bilirubin,Urine Negative (Negative); Blood,Urine Trace (Negative); Calcium Oxalate Crystals,Urine Occasional /hpf; Color,Urine Yellow; Glucose,Urine (UA) Negative (Negative); Hyaline Casts,Urine 4 /lpf (0-2); Ketones,Urine Negative (Negative); Leukocyte Esterase,Urine Negative (Negative); Mucus,Urine Many /hpf; Nitrite,Urine Negative (Negative); PH, Urine 5.5 (5.0-8.0); Protein,Urine 1+ (Negative); RBC,Urine 2 /hpf (0-5); Specific Gravity,Urine 1.036 (1.001-1.035); Urobilinogen,Urine <2.0 mg/dL (<2.0); WBC,Urine 3 /hpf (0-5)
[2020-11-19] MEDS ORDERED: ACETAMINOPHEN TAB 325 MG TAB PO STA (04:30)
[2020-11-19 04:34] LABS: INR 0.9 (<1.2); Partial Thromboplastin Time 23.2 sec (22.0-30.0); Prothrombin Time 9.6 sec (9.0-12.0)
[2020-11-19 04:46] VITALS: TEMP 99.3
[2020-11-19 05:09] VITALS: BP 159/99; PULSE 110; RESP 25
== END 2020-11-19 05:19 | disposition home or self-care (01) ==
LOC: EC 03:19
DX: U07.1 COVID-19 (principal); J45.909 Unspecified asthma, uncomplicated; E78.5 Hyperlipidemia, unspecified; I10 Essential (primary) hypertension; M19.90 Unspecified osteoarthritis, unspecified site; Z87.891 Personal history of nicotine dependence
CPT/HCPCS: 36415; 71045; 80053; 81001; 83605; 84484; 85025; 85610; 85730; 87040; 87635; 93005; 99285

== ENCOUNTER 2020-11-21 06:05 | Emergency (ER) | payer BC ==
[2020-11-21] MEDS ORDERED: IBUPROFEN 600 MG TAB PO STA (06:24)
[2020-11-21] MEDS ORDERED: ONDANSETRON 4 MG/2 ML VIAL IVP STA (06:24)
[2020-11-21] MEDS ORDERED: ALBUTEROL HFA INHALER INHALATION STA (06:24)
--- NOTE | 2020-11-21 06:29 | ED ---
SOB HPI - General Chief Complaint: Shortness of Breath Stated Complaint: COVID+,SOB Time Seen by Provider: 11/21/20 06:15 Source: patient Mode of arrival: wheelchair Limitations: no limitations - History of Present Illness Initial Comments: 60 year-old male patient diagnosed with COVID-19 2 days ago, past history significant for hypertension, asthma, and diabetes, presents to the emergency department for evaluation of increased shortness of breath. States that he is feeling worse. Reports cough, shortness of breath at rest and with activity, nausea, and body aches. Reports occasional vomiting. States he is able to drink but has a hard time eating. Reports high fevers. Took tylenol just prior to arrival. Denies use of other medications. Patient denies any recent rash, chest pain, abdominal pain, constipation, back pain, numbness, tingling, diz ziness, weakness, hematuria, dysuria, urinary urgency, urinary frequency, headache, visual changes, or any other complaints. - Related Data Home Medications Medication Instructions Recorded Confirmed Albuterol Sulfate [Proair Hfa] 2 puff INHALATION RT-QID PRN 05/18/18 11/21/20 Montelukast Sodium [Singulair] 10 mg PO DAILY 05/18/18 11/21/20 Albuterol Nebulized [Ventolin 2.5 mg INHALATION RT-QID 10/15/19 11/21/20 Nebulized] lisinopriL [Prinivil] 20 mg PO DAILY@1600 03/09/20 11/21/20 Fluticasone Propionate [Flovent 2 puff INHALATION RT-DAILY 06/16/20 11/21/20 Hfa 220 mcg] Previous Rx's Medication Instructions Recorded Ondansetron [Zofran ODT] 4 mg PO Q8HR PRN #20 tab 11/21/20 guaiFENesin-DM 600/30MG [Mucinex 2 each PO Q12HR PRN #20 tab.er.12h 11/21/20 Dm] predniSONE 50 mg PO DAILY #5 tablet 11/21/20 Allergies Allergy/AdvReac Type Severity Reaction Status Date / Time Lyqizyp-Lyr-Ukh Reductase AdvReac MUSCLE PAIN Verified 11/21/20 07:22 Inhibitor Review of Systems ROS Statement: Those systems with pertinent positive or pertinent negative responses have been documented in the HPI. ROS Other: All systems not noted in ROS Statement are negative. Past Medical History Past Medical History: Asthma, Hyperlipidemia, Hypertension, Osteoarthritis (OA) Additional Past Medical History / Comment(s): Persistent asthma, NIDDM II- arthritis R knee, History of Any Multi-Drug Resistant Organisms: None Reported Past Surgical History: Hernia Repair Additional Past Surgical History / Comment(s): Umbilical hernia repair Past Anesthesia/Blood Transfusion Reactions: Motion Sickness Past Psychological History: No Psychological Hx Reported Smoking Status: Former smoker Past Alcohol Use History: None Reported Past Drug Use History: None Reported - Past Family History Mother History Unknown: Yes Family Medical History: Cancer Additional Family Medical History / Comment(s): Mother of ovarian cancer at the age of 78yrs. Father History Unknown: Yes Family Medical History: GI Bleed Additional Family Medical History / Comment(s): Father around age 50 from a bleeding ulcer. Brother(s) Family Medical History: No Reported History Additional Family Medical History / Comment(s): The patient has 2 brothers and one from pneumonia at age 59, 1 is alive with history of bariatric surgery. Sister(s) Family Medical History: No Reported History Additional Family Medical History / Comment(s): Patient has 2 sisters and one patricio s history of gallbladder disease. Daughter(s) Family Medical History: Unable to Obtain Additional Family Medical History / Comment(s): Patient has one daughter with no major medical problems. Son(s) Additional Family Medical History / Comment(s): Patient has 2 sons and one has hypertension. General Exam Limitations: no limitations General appearance: alert, in no apparent distress, other (This is a well- developed, well-nourished adult male patient in no acute distress. Vital signs upon presentation temperature 102.1F, pulse 114, respirations 34, blood pressure 152/52, pulse ox 95% on room air.) Eye exam: Present: normal appearance, PERRL, EOMI. Absent: scleral icterus, conjunctival injection, periorbital swelling ENT exam: Present: normal exam, normal oropharynx, mucous membranes moist Respiratory exam: Present: respiratory distress (Mild), wheezes (Mild expiratory in the posterior lung babb), other (Tachypnea). Absent: rales, rhonchi, stridor Cardiovascular Exam: Present: normal rhythm, tachycardia, normal heart sounds. Absent: systolic murmur, diastolic murmur, rubs, gallop, clicks GI/Abdominal exam: Present: soft, normal bowel sounds. Absent: distended, tenderness, guarding, rebound, rigid Neurological exam: Present: alert, oriented X3, CN II-XII intact Psychiatric exam: Present: normal affect, normal mood Skin exam: Present: warm, dry, intact, normal color. 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 Physical examination is unremarkable. Labs reviewed and did reveal d-dimer 0.61, sodium 129, glucose 148. C-reactive protein 72.1. I did discuss receiving bamlanivimab with the patient we went over risks versus benefits. Initially he did agree, when the nurse went and having a he changed his mind and refused the medication. He'll be discharged home with a course of steroids and Mucinex. He does have inhalers at home. He is instructed to take Tylenol Motrin for fever control. Follow-up with his primary care physician for recheck in 1-2 days. Return parameters were discussed in detail. He verbalizes understanding and agrees with this plan. - Lab Data Result diagrams: 11/21/20 06:53 11/21/20 06:53 Lab Results 11/21/20 11/21/20 11/21/20 Range/Units 06:53 06:53 06:53 WBC 5.8 (3.8-10.6) k/uL RBC 5.12 (4.30-5.90) m/uL Hgb 16.4 (13.0-17.5) gm/dL Hct 46.5 (39.0-53.0) % MCV 90.8 (80.0-100.0) fL MCH 31.9 (25.0-35.0) pg MCHC 35.2 (31.0-37.0) g/dL RDW 13.0 (11.5-15.5) % Plt Count 191 (150-450) k/uL MPV 6.3 Neutrophils % 77 % Lymphocytes % 12 % Monocytes % 8 % Eosinophils % 0 % Basophils % 1 % Neutrophils # 4.5 (1.3-7.7) k/uL Lymphocytes # 0.7 L (1.0-4.8) k/uL Monocytes # 0.4 (0-1.0) k/uL Eosinophils # 0.0 (0-0.7) k/uL Basophils # 0.1 (0-0.2) k/uL PT 10.1 (9.0-12.0) sec INR 0.9 (<1.2) APTT 23.2 (22.0-30.0) sec D-Dimer 0.61 H (<0.60) mg/L FEU Sodium 129 L (137-145) mmol/L Potassium 4.1 (3.5-5.1) mmol/L Chloride 98 (98-107) mmol/L Carbon Dioxide 24 (22-30) mmol/L Anion Gap 7 mmol/L BUN 16 (9-20) mg/dL Creatinine 0.89 (0.66-1.25) mg/dL Est GFR (CKD-EPI)AfAm >90 (>60 ml/min/1.73 sqM) Est GFR (CKD-EPI)NonAf >90 (>60 ml/min/1.73 sqM) Glucose 148 H (74-99) mg/dL Plasma Lactic Acid Jorge (0.7-2.0) mmol/L Calcium 8.3 L (8.4-10.2) mg/dL Magnesium 1.8 (1.6-2.3) mg/dL Ferritin 527.6 H (22.0-322.0) ng/mL Total Bilirubin 0.6 (0.2-1.3) mg/dL AST 22 (17-59) U/L ALT 13 (4-49) U/L Alkaline Phosphatase 61 (38-126) U/L Lactate Dehydrogenase 403 (313-618) U/L C-Reactive Protein 72.1 H (<10.0) mg/L Total Protein 6.4 (6.3-8.2) g/dL Albumin 3.8 (3.5-5.0) g/dL 11/21/20 Range/Units 06:53 WBC (3.8-10.6) k/uL RBC (4.30-5.90) m/uL Hgb (13.0-17.5) gm/dL Hct (39.0-53.0) % MCV (80.0-100.0) fL MCH (25.0-35.0) pg MCHC (31.0-37.0) g/dL RDW (11.5-15.5) % Plt Count (150-450) k/uL MPV Neutrophils % % Lymphocytes % % Monocytes % % Eosinophils % % Basophils % % Neutrophils # (1.3-7.7) k/uL Lymphocytes # (1.0-4.8) k/uL Monocytes # (0-1.0) k/uL Eosinophils # (0-0.7) k/uL Basophils # (0-0.2) k/uL PT (9.0-12.0) sec INR (<1.2) APTT (22.0-30.0) sec D-Dimer (<0.60) mg/L FEU Sodium (137-145) mmol/L Potassium (3.5-5.1) mmol/L Chloride (98-107) mmol/L Carbon Dioxide (22-30) mmol/L Anion Gap mmol/L BUN (9-20) mg/dL Creatinine (0.66-1.25) mg/dL Est GFR (CKD-EPI)AfAm (>60 ml/min/1.73 sqM) Est GFR (CKD-EPI)NonAf (>60 ml/min/1.73 sqM) Glucose (74-99) mg/dL Plasma Lactic Acid Jorge 0.9 (0.7-2.0) mmol/L Calcium (8.4-10.2) mg/dL Magnesium (1.6-2.3) mg/dL Ferritin (22.0-322.0) ng/mL Total Bilirubin (0.2-1.3) mg/dL AST (17-59) U/L ALT (4-49) U/L Alkaline Phosphatase (38-126) U/L Lactate Dehydrogenase (313-618) U/L C-Reactive Protein (<10.0) mg/L Total Protein (6.3-8.2) g/dL Albumin (3.5-5.0) g/dL - EKG Data -: EKG Interpreted by Me EKG Comments: EKG obtained at 06 43 shows sinus tachycardia with ventricular rate of 110, MO interval 154, QRS duration 94, QT 324, QTC 438. No evidence of ST elevation or depression. - Radiology Data Radiology results: report reviewed, image reviewed One view x-ray of the chest is obtained. Report is reviewed in its entirety. Impression by Dr. Marquez shows correlate for pneumonia. Disposition Clinical Impression: COVID-19, Dyspnea Disposition: HOME SELF-CARE Condition: Good Instructions (If sedation given, give patient instructions): Coronavirus Dise ase 2019 (COVID-19), Dyspnea (ED) Additional Instructions: Use medications as directed. Follow-up with your primary care physician for recheck in 1-2 days. Return to the emergency department for any new, worsening, or concerning symptoms. Prescriptions: guaiFENesin-DM 600/30MG [Mucinex Dm] 2 each PO Q12HR PRN #20 tab.er.12h PRN Reason: Cough predniSONE 50 mg PO DAILY #5 tablet Ondansetron [Zofran ODT] 4 mg PO Q8HR PRN #20 tab PRN Reason: Nausea Is patient prescribed a controlled substance at d/c from ED?: No Referrals: Roger Lane MD [Primary Care Provider] - 1-2 days Time of Disposition: 10:38
[2020-11-21 07:16] LABS: Basophils # (A) 0.1 k/uL (0-0.2); Basophils % (A) 1 %; Eosinophils % (A) 0 %; HCT 46.5 % (39.0-53.0); HGB 16.4 gm/dL (13.0-17.5); Lymphocytes # (A) 0.7 k/uL (1.0-4.8); Lymphocytes % (A) 12 %; MCH 31.9 pg (25.0-35.0); MCHC 35.2 g/dL (31.0-37.0); MCV 90.8 fL (80.0-100.0); Mean Platelet Volume 6.3; Monocytes # (A) 0.4 k/uL (0-1.0); Monocytes % (A) 8 %; Neutrophils # (A) 4.5 k/uL (1.3-7.7); Neutrophils % (A) 77 %; Platelet Count 191 k/uL (150-450); RBC 5.12 m/uL (4.30-5.90); WBC 5.8 k/uL (3.8-10.6)
[2020-11-21 07:26] LABS: ALT 13 U/L (4-49); AST 22 U/L (17-59); African American GFR (CKD) >90 (>60 ml/min/1.73 sqM); Albumin 3.8 g/dL (3.5-5.0); Alkaline Phosphatase 61 U/L (38-126); Anion Gap 7 mmol/L; Blood Urea Nitrogen 16 mg/dL (9-20); C Reactive Protein 72.1 mg/L (<10.0); Calcium 8.3 mg/dL (8.4-10.2); Carbon Dioxide 24 mmol/L (22-30); Chloride 98 mmol/L (98-107); Glucose 148 mg/dL (74-99); LDH 403 U/L (313-618); Magnesium 1.8 mg/dL (1.6-2.3); Non-African American GFR(CKD) >90 (>60 ml/min/1.73 sqM); Potassium 4.1 mmol/L (3.5-5.1); Sodium 129 mmol/L (137-145); Total Bilirubin 0.6 mg/dL (0.2-1.3); Total Protein 6.4 g/dL (6.3-8.2)
[2020-11-21 07:45] LABS: INR 0.9 (<1.2); Partial Thromboplastin Time 23.2 sec (22.0-30.0); Prothrombin Time 10.1 sec (9.0-12.0)
[2020-11-21 07:48] LABS: D-Dimer 0.61 mg/L FEU (<0.60)
[2020-11-21] MEDS ORDERED: SODIUM CHLORIDE 0.9% 1,000 ML IV ONE (07:48)
--- NOTE | 2020-11-21 08:19 | XR ---
EXAMINATION TYPE: XR chest 1V portable DATE OF EXAM: 11/21/2020 COMPARISON: Prior chest x-ray 11/19/2020 HISTORY: Suspected Covid 19 pneumonia TECHNIQUE: Single frontal view of the chest is obtained. FINDINGS: Patchy densities present within the lungs. No evident pneumothorax or pleural effusion. Ca rdiac mediastinal silhouette within normal limits accounting for rotation. Bones are stable. IMPRESSION: Correlate for pneumonia.
[2020-11-21] MEDS ORDERED: BAMLANIVIMAB 700 MG in SODIUM CHLORIDE 0.9% 50 ML IVPB ONE (10:00)
[2020-11-21 11:13] LABS: Ferritin 527.6 ng/mL (22.0-322.0)
[2020-11-21 11:37] VITALS: PULSE 90; RESP 18; TEMP 98.4
[2020-11-21] MEDS ORDERED: predniSONE 50 MG TAB PO STA (11:41)
[2020-11-21 12:28] VITALS: BP 137/100
== END 2020-11-21 12:30 | disposition home or self-care (01) ==
LOC: EC 06:05
DX: U07.1 COVID-19 (principal); R06.00 Dyspnea, unspecified; E11.9 Type 2 diabetes mellitus without complications; E78.5 Hyperlipidemia, unspecified; I10 Essential (primary) hypertension; J45.909 Unspecified asthma, uncomplicated; M17.11 Unilateral primary osteoarthritis, right knee; Z79.51 Long term (current) use of inhaled steroids; Z79.52 Long term (current) use of systemic steroids; Z79.899 Other long term (current) drug therapy; Z87.891 Personal history of nicotine dependence
CPT/HCPCS: 36415; 94640; 93005; 85379; 80053; 82728; 83605; 83615; 83735; 85025; 85610; 85730; 86140; 87040; 84145; 71045; 99285; 96374; 96361; J2405; J7512

== ENCOUNTER 2020-11-23 22:41 | Inpatient (IN) | payer BC ==
[2020-11-23] MEDS ORDERED: ACETAMINOPHEN TAB 500 MG TAB PO STA (22:51)
[2020-11-23] MEDS ORDERED: DEXAMETHASONE SOD PHOSPHATE 10 MG/ML 1 ML VIAL IV STA (22:51)
[2020-11-23] MEDS ORDERED: NALOXONE 0.4 MG/ML 1 ML VIAL IV PRN (22:51)
[2020-11-23] MEDS ORDERED: ALBUTEROL HFA INHALER INHALATION STA (22:51)
[2020-11-23] MEDS ORDERED: ALBUTEROL HFA INHALER INHALATION PRN (22:51)
[2020-11-23] MEDS ORDERED: ONDANSETRON 4 MG/2 ML VIAL IVP PRN (22:51)
[2020-11-23] MEDS ORDERED: KETOROLAC 15 MG/ML 1 ML VIAL IVP STA (22:51)
[2020-11-23] MEDS ORDERED: MORPHINE SULFATE 4 MG/ML SYRINGE IV PRN (22:51)
[2020-11-23] MEDS ORDERED: SODIUM CHLORIDE 0.9% 1,000 ML IV STA ×2 (22:51)
[2020-11-23] MEDS ORDERED: IBUPROFEN 400 MG TAB PO PRN (22:51)
[2020-11-23] MEDS ORDERED: SODIUM CHLORIDE 0.9% 500 ML 500 ML IV STA (22:51)
--- NOTE | 2020-11-23 22:51 | ED ---
Recheck HPI - General Chief Complaint: Shortness of Breath Stated Complaint: SOB Time Seen by Provider: 11/23/20 22:45 Source: patient, EMS, RN notes reviewed, old records reviewed Mode of arrival: EMS Limitations: no limitations - History of Present Illness Initial Comments: 60-year-old male on evaluation today. He comes in today for evaluation recheck for shortness of breath, known positive history of coronavirus. Persistent fevers. Patient has history of asthma blood pressure cholesterol diabetes. Patient is having significant worsening symptoms of his coronavirus with severe shortness of breath, patient states his breathing is continued to get worse until finally can't catch his breath especially with any activity MD Complaint: abnormal lab (Positive for coronavirus) -: days(s) Returns Today for: Called Because of Abnormal Lab/Test, other (Significant worsening shortness of breath) Symptoms Since Prior Visit: no new symptoms (Persistent shortness of breath), worsening pain (Bodyaches and pains), fever Associated Symptoms: fever, chills, shortness of breath, malaise Treatments Prior to Arrival: other (None) - Related Data Home Medications Medication Instructions Recorded Confirmed Montelukast Sodium [Singulair] 10 mg PO HS 05/18/18 11/23/20 Albuterol Nebulized [Ventolin 2.5 mg INHALATION RT-Q6H PRN 10/15/19 11/23/20 Nebulized] lisinopriL [Prinivil] 20 mg PO DAILY 03/09/20 11/23/20 Fluticasone Propionate [Flovent 2 puff INHALATION RT-DAILY 06/16/20 11/23/20 Hfa 220 mcg] Albuterol Sulfate [Ventolin HFA] 2 puff INHALATION RT-Q6H PRN 11/23/20 11/23/20 Ibuprofen [Motrin] 600 mg PO Q8HR PRN 11/23/20 11/23/20 guaiFENesin-DM 600/30MG [Mucinex 2 tab PO Q12HR PRN 11/23/20 11/23/20 Dm] Previous Rx's Medication Instructions Recorded Ondansetron [Zofran ODT] 4 mg PO Q8HR PRN #20 tab 11/21/20 predniSONE 50 mg PO DAILY #5 tablet 11/21/20 Allergies Allergy/AdvReac Type Severity Reaction Status Date / Time Frwqzzb-Nvc-Gyf Reductase AdvReac MUSCLE PAIN Verified 11/23/20 23:26 Inhibitor Review of Systems ROS Statement: Those systems with pertinent positive or pertinent negative responses have been documented in the HPI. ROS Other: All systems not noted in ROS Statement are negative. Past Medical History Past Medical History: Asthma, Hyperlipidemia, Hypertension, Osteoarthritis (OA) Additional Past Medical History / Comment(s): Persistent asthma, NIDDM II- arthritis R knee, History of Any Multi-Drug Resistant Organisms: None Reported Past Surgical History: Hernia Repair Additional Past Surgical History / Comment(s): Umbilical hernia repair Past Anesthesia/Blood Transfusion Reactions: Motion Sickness Past Psychological History: No Psychological Hx Reported Smoking Status: Former smoker Past Alcohol Use History: None Reported Past Drug Use History: None Reported - Past Family History Mother History Unknown: Yes Family Medical History: Cancer Additional Family Medical History / Comment(s): Mother of ovarian cancer at the age of 78yrs. Father History Unknown: Yes Family Medical History: GI Bleed Additional Family Medical History / Comment(s): Father around age 50 from a bleeding ulcer. Brother(s) Family Medical History: No Reported History Additional Family Medical History / Comment(s): The patient has 2 brothers and one from pneumonia at age 59, 1 is alive with history of bariatric surgery. Sister(s) Family Medical History: No Reported History Additional Family Medical History / Comment(s): Patient has 2 sisters and one has history of gallbladder disease. Daughter(s) Family Medical History: Unable to Obtain Additional Family Medical History / Comment(s): Patient has one daughter with no major medical problems. Son(s) Additional Family Medical History / Comment(s): Patient has 2 sons and one has hypertension. General Exam Limitations: no limitations General appearance: alert, in no apparent distress, anxious, in distress Head exam: Present: atraumatic, normocephalic, normal inspection Eye exam: Present: normal appearance, PERRL, EOMI. Absent: scleral icterus, conjunctival injection, periorbital swelling ENT exam: Present: normal exam, mucous membranes dry Neck exam: Present: normal inspection. Absent: tenderness, meningismus, lymphadenopathy Respiratory exam: Present: respiratory distress, accessory muscle use, decreased breath sounds, prolonged expiratory. Absent: wheezes, rales, rhonchi, stridor Cardiovascular Exam: Present: tachycardia, normal heart sounds. Absent: systolic murmur, diastolic murmur, rubs, gallop, clicks GI/Abdominal exam: Present: soft, normal bowel sounds. Absent: distended, tenderness, guarding, rebound, rigid Extremities exam: Present: normal inspection, full ROM, normal capillary refill. Absent: tenderness, pedal edema, joint swelling, calf tenderness Back exam: Present: normal inspection Neurological exam: Present: alert, oriented X3, CN II-XII intact Psychiatric exam: Present: normal affect, normal mood Skin exam: Present: warm, dry, intact, normal color. Absent: rash Course Vital Signs 11/23/20 11/24/20 11/24/20 22:44 00:50 02:26 Temperature 102.8 F H 100.1 F H 98.5 F Pulse Rate 124 H 94 Respiratory 24 20 Rate Blood Pressure 148/102 119/66 O2 Sat by Pulse 92 L 94 L Oximetry 11/24/20 11/24/20 11/24/20 06:06 07:25 10:35 Temperature 98 F 98.3 F 98.5 F Pulse Rate 78 74 86 Respiratory 20 18 18 Rate Blood Pressure 138/90 136/80 125/76 O2 Sat by Pulse 96 96 96 Oximetry 11/24/20 11/24/20 11/24/20 17:56 18:53 20:59 Temperature 98.6 F Pulse Rate 86 88 Respiratory 18 18 Rate Blood Pressure 142/90 131/91 O2 Sat by Pulse 95 95 95 Oximetry - Reevaluation(s) Reevaluation #1: Medical record is reviewed Patient's symptoms remain mildly improved here in the ER with supplemental oxygen low severely short of breath Patient informed results questions are answered Patient has persistent SOB - Consultations Consultation #1: spoke w Dr Prabhakar re admission who is agreeable Medical Decision Making - Medical Decision Making 60 male with severe shortness of breath significant weakness not feeling well. Known positive coronavirus. Patient has persistent hypoxia coronavirus pneumonia we'll admit for supportive care - Lab Data Result diagrams: 11/24/20 07:45 11/24/20 07:45 - EKG Data -: EKG Interpreted by Me (EKG shows sinus tachycardia 118. 158 QRS 90 QTC 420) - Radiology Data Radiology results: report reviewed (Chest x-ray pna positive coronavirus), image reviewed Critical Care Time Critical Care Time: Yes Total Critical Care Time: 31 Disposition Clinical Impression: COVID-19, Dyspnea, SOB (shortness of breath), Failure of outpatient treatment, Asthma Disposition: ADMITTED IP TO THIS HOSP Condition: Fair Is patient prescribed a controlled substance at d/c from ED?: No
[2020-11-23 23:27] LABS: Basophils % (A) 0 %; Eosinophils % (A) 0 %; HCT 45.5 % (39.0-53.0); HGB 15.3 gm/dL (13.0-17.5); Lymphocytes # (A) 0.4 k/uL (1.0-4.8); Lymphocytes % (A) 6 %; MCH 30.4 pg (25.0-35.0); MCHC 33.6 g/dL (31.0-37.0); MCV 90.6 fL (80.0-100.0); Mean Platelet Volume 6.6; Monocytes # (A) 0.2 k/uL (0-1.0); Monocytes % (A) 3 %; Neutrophils # (A) 6.2 k/uL (1.3-7.7); Neutrophils % (A) 90 %; Platelet Count 235 k/uL (150-450); RBC 5.02 m/uL (4.30-5.90); RDW 13.5 % (11.5-15.5); WBC 6.9 k/uL (3.8-10.6)
--- NOTE | 2020-11-23 23:36 | XR ---
EXAMINATION TYPE: XR chest 1V portable DATE OF EXAM: 11/23/2020 COMPARISON: 11/21/2020 HISTORY: Short of breath. Pneumonia. TECHNIQUE: Single view FINDINGS: There is some mild pulmonary interstitial infiltrates. Heart size is normal. There is no ob vious heart failure. There are chest leads. Costophrenic angles are clear. IMPRESSION: There is some pulmonary interstitial pneumonia which is slightly worse than recent exam. Normal heart.
[2020-11-23 23:44] LABS: D-Dimer 0.57 mg/L FEU (<0.60); INR 0.9 (<1.2); Partial Thromboplastin Time 24.1 sec (22.0-30.0); Prothrombin Time 10.2 sec (9.0-12.0)
[2020-11-24 00:16] LABS: ALT 13 U/L (4-49); AST 29 U/L (17-59); African American GFR (CKD) >90 (>60 ml/min/1.73 sqM); Albumin 3.5 g/dL (3.5-5.0); Alkaline Phosphatase 49 U/L (38-126); Anion Gap 9 mmol/L; Blood Urea Nitrogen 19 mg/dL (9-20); Calcium 8.7 mg/dL (8.4-10.2); Carbon Dioxide 21 mmol/L (22-30); Chloride 101 mmol/L (98-107); Glucose 220 mg/dL (74-99); LDH 704 U/L (313-618); Magnesium 1.7 mg/dL (1.6-2.3); Non-African American GFR(CKD) >90 (>60 ml/min/1.73 sqM); Potassium 4.7 mmol/L (3.5-5.1); Sodium 131 mmol/L (137-145); Total Bilirubin 0.5 mg/dL (0.2-1.3); Total Protein 6.1 g/dL (6.3-8.2)
[2020-11-24 01:11] LABS: C Reactive Protein 151.4 mg/L (<10.0)
[2020-11-24] MEDS: ENOXAPARIN 40 MG/0.4 ML SYRINGE SQ SCH (07:30)
[2020-11-24 08:22] LABS: Basophils % (A) 0 %; Eosinophils % (A) 0 %; HCT 42.8 % (39.0-53.0); HGB 14.6 gm/dL (13.0-17.5); Lymphocytes # (A) 0.5 k/uL (1.0-4.8); Lymphocytes % (A) 8 %; MCH 31.5 pg (25.0-35.0); MCHC 34.2 g/dL (31.0-37.0); MCV 91.9 fL (80.0-100.0); Mean Platelet Volume 6.8; Monocytes # (A) 0.2 k/uL (0-1.0); Monocytes % (A) 3 %; Neutrophils # (A) 4.7 k/uL (1.3-7.7); Neutrophils % (A) 87 %; Platelet Count 228 k/uL (150-450); RBC 4.65 m/uL (4.30-5.90); RDW 13.1 % (11.5-15.5); WBC 5.4 k/uL (3.8-10.6)
[2020-11-24 08:33] LABS: ALT 12 U/L (4-49); AST 27 U/L (17-59); Albumin 3.3 g/dL (3.5-5.0); Alkaline Phosphatase 43 U/L (38-126); Anion Gap 8 mmol/L; Blood Urea Nitrogen 19 mg/dL (9-20); Calcium 8.1 mg/dL (8.4-10.2); Carbon Dioxide 23 mmol/L (22-30); Chloride 102 mmol/L (98-107); Glucose 200 mg/dL (74-99); LDH 782 U/L (313-618); Potassium 5.2 mmol/L (3.5-5.1); Sodium 133 mmol/L (137-145); Total Bilirubin 0.5 mg/dL (0.2-1.3); Total Protein 5.9 g/dL (6.3-8.2)
[2020-11-24 08:34] LABS: African American GFR (CKD) >90 (>60 ml/min/1.73 sqM); Non-African American GFR(CKD) >90 (>60 ml/min/1.73 sqM)
[2020-11-24] MEDS ORDERED: guaiFENesin-DM 600/30MG 1 EACH TAB.ER.12H PO PRN (09:42)
[2020-11-24] MEDS ORDERED: IBUPROFEN 600 MG TAB PO PRN (09:42)
[2020-11-24] MEDS ORDERED: ONDANSETRON ODT 4 MG TAB PO PRN (09:42)
[2020-11-24] MEDS: lisinopriL 20 MG TAB PO SCH (10:35)
--- NOTE | 2020-11-24 10:39 | CT ---
EXAMINATION TYPE: CT angio chest DATE OF EXAM: 11/24/2020 COMPARISON: None HISTORY: COVID positive, hypoxia CT DLP: 974.4 mGycm CONTRAST: CT chest with contrast and 3D reconstruction with MIP imaging is performed without and with IV Contra st, patient injected with 100 ml mL of Isovue 370. Contrast-enhanced CT of the chest was performed through the course of the pulmonary arteries with silva g and mediastinal window settings submitted. 3D reconstruction with MIP imaging was also performed. PULMONARY ARTERIES: The pulmonary arteries and their major tributaries are patent. I do not see mel dence for sizable filling defect to suggest pulmonary embolic process. LUNGS: Scattered groundglass infiltrates are noted compatible with the provided history of Covid 19. No evidence for atelectasis. No pulmonary nodule or mass is detected. No pleural effusion. MEDIASTINUM: Thoracic aorta is of normal caliber,however, evaluation is limited given timing of the contrast bolus. If there is concern for thoracic aortic pathology consider CATHRYN. Correlate clinicall y . The heart is not enlarged. No evidence for mediastinal mass. No mediastinal lymph nodes greater than 1cm. HILAR STRUCTURES: No evidence for mass. No hilar lymph nodes greater than 1 cm. UPPER ABDOMEN: No significant abnormality is seen. IMPRESSION: 1. No evidence for Pulmonary embolism at this time. 2. Scattered groundglass infiltrates.
[2020-11-24] MEDS ORDERED: FLUTICASONE 110 MCG INHALER INHALATION SCH (11:00)
[2020-11-24] MEDS ORDERED: methylPREDNISolone SOD SUCCI 125 MG/2 ML VIAL IV SCH (12:00)
[2020-11-24 12:33] LABS: Glucose,Whole Blood 137 mg/dL (75-99)
[2020-11-24] MEDS: INSULIN ASPART (NovoLOG) 100 UNIT/ML VIAL SQ SCH ×3 (13:25→23:11)
--- NOTE | 2020-11-24 14:13 | P.CNPUL ---
History of Present Illness Consult date: 11/24/20 Requesting physician: Terell So Reason for consult: dyspnea, cough, hypoxemia, pneumonia, abnormal CXR/CT Chief complaint: Fever, chills, shortness of breath, weakness. History of present illness: This is a 60-year-old male, who was seen in the emergency room on November 23. He was brought in by EMS, because of shortness of breath. In addition, he complained of fever, and chills. He apparently tested positive for COVID 19 last Saturday. He's been sick for about 12 days. He was on oxygen 2 L/m, and getting saline at 75 mL an hour. The patient has a history of chronic bronchial asthma, hyperlipidemia, hypertension, and osteoarthritis. He also suffers from type 2 diabetes mellitus, and degenerative joint disease in his right knee. The patient is a former smoker. His primary care physician is Dr. Lane. Currently, the patient complains of when these sitting still, he's fine but when he moves about or does any activity, he gets very short of breath. He denies any chest pain or chest discomfort. He denies any GI complaints or rash. White count 5.4, hemoglobin 14.6, hematocrit 42.8, and platelet count 220,000. PT 10.2, INR 0.9, PTT 24.1, and d-dimer 0.57. Sodium 133, potassium 5.2, chlorides 102, CO2 23, anion gap 8, BUN 19, creatinine 0.7. Initial lactic acid was 2. 5 repeat was 1.1 LDH is 782 C-reactive protein is 151.4, and pro-calcitonin level was 0.24. Chest x-ray shows some bilateral infiltrates, worse than a chest x- ray that was done on the . CT angiogram was negative for pulmonary embolism, and showed scattered groundglass infiltrates. Review of Systems REVIEW OF SYSTEMS: CONSTITUTIONAL: Fever/chills, weakness. NEUROLOGIC: [ Negative.] HEENT: [ Negative.] CARDIAC: [Negative.] PULMONARY: Shortness of breath with activity, nonproductive cough, pain when coughing. GI: [Negative.] : [Negative.] RHEUMATOLOGIC: [ Negative.] IMMUNOLOGIC: [ Negative.] ENDOCRINE: [Negative. ] DERMATOLOGIC: [Negative.] Past Medical History Past Medical History: Asthma, Hyperlipidemia, Hypertension, Osteoarthritis (OA) Additional Past Medical History / Comment(s): Persistent asthma, NIDDM II- arthritis R knee, History of Any Multi-Drug Resistant Organisms: None Reported Past Surgical History: Hernia Repair Additional Past Surgical History / Comment(s): Umbilical hernia repair Past Anesthesia/Blood Transfusion Reactions: Motion Sickness Past Psychological History: No Psychological Hx Reported Smoking Status: Former smoker Past Alcohol Use History: None Reported Past Drug Use History: None Reported - Past Family History Mother History Unknown: Yes Family Medical History: Cancer Additional Family Medical History / Comment(s): Mother of ovarian cancer at the age of 78yrs. Father History Unknown: Yes Family Medical History: GI Bleed Additional Family Medical History / Comment(s): Father around age 50 from a bleeding ulcer. Brother(s) Family Medical History: No Reported History Additional Family Medical History / Comment(s): The patient has 2 brothers and one from pneumonia at age 59, 1 is alive with history of bariatric surgery. Sister(s) Family Medical History: No Reported History Additional Family Medical History / Comment(s): Patient has 2 sisters and one has history of gallbladder disease. Daughter(s) Family Medical History: Unable to Obtain Additional Family Medical History / Comment(s): Patient has one daughter with no major medical problems. Son(s) Additional Family Medical History / Comment(s): Patient has 2 sons and one has hypertension. Medications and Allergies Home Medications Medication Instructions Recorded Confirmed Type Montelukast Sodium [Singulair] 10 mg PO HS 05/18/18 11/23/20 History Albuterol Nebulized [Ventolin 2.5 mg INHALATION RT-Q6H PRN 10/15/19 11/23/20 H istory Nebulized] lisinopriL [Prinivil] 20 mg PO DAILY 03/09/20 11/23/20 History Fluticasone Propionate [Flovent 2 puff INHALATION RT-DAILY 06/16/20 11/23/20 History Hfa 220 mcg] Ondansetron [Zofran ODT] 4 mg PO Q8HR PRN #20 tab 11/21/20 11/23/20 Rx predniSONE 50 mg PO DAILY #5 tablet 11/21/20 11/23/20 Rx Albuterol Sulfate [Ventolin HFA] 2 puff INHALATION RT-Q6H PRN 11/23/20 11/23/20 History Ibuprofen [Motrin] 600 mg PO Q8HR PRN 11/23/20 11/23/20 History guaiFENesin-DM 600/30MG [Mucinex 2 tab PO Q12HR PRN 11/23/20 11/23/20 History Dm] Allergies Allergy/AdvReac Type Severity Reaction Status Date / Time Tmcjoho-Len-Zcf Reductase AdvReac MUSCLE PAIN Verified 11/23/20 23:26 Inhibitor Physical Exam Osteopathic Statement: *. No significant issues noted on an osteopathic structural exam other than those noted in the History and Physical/Consult. Vitals: Vital Signs Temp Pulse Resp BP Pulse Ox 11/24/20 10:35 98.5 F 86 18 125/76 96 11/24/20 07:25 98.3 F 74 18 136/80 96 11/24/20 06:06 98 F 78 20 138/90 96 11/24/20 02:26 98.5 F 94 20 119/66 94 L 11/24/20 00:50 100.1 F H 11/23/20 22:44 102.8 F H 124 H 24 148/102 92 L Intake and Output 11/23/20 11/24/20 11/24/20 22:59 06:59 14:59 Other: Weight 108.862 kg No acute distress, oriented 3. 2 L saturation is 96%. Temperature 100.1, without evidence of accessory muscle use or conversational dyspnea. HEENT examination is grossly unremarkable. Mucous membranes are moist. No oral lesions. Neck supple. Full range of motion. No adenopathy thyromegaly or neck vein distention. Cardiovascular examination reveals regular rhythm rate. S1-S2 normal. No S3 or S4. No discernible murmur noted. Heart rate is 86 bpm. Lungs reveal bilateral coarse rhonchi. A few scattered crackles. No wheezes. Breath sounds equal bilaterally. Abdomen soft bowel sounds are heard. No masses or tenderness. Extremities are intact. No cyanosis clubbing or edema. Skin is without rash or lesion. Neurologic examination is brief but nonfocal. Results - Laboratory Findings CBC and BMP: 11/24/20 07:45 11/24/20 07:45 PT/INR, D-dimer PT 10.2 sec (9.0-12.0) 11/23/20 23:21 INR 0.9 (<1.2) 11/23/20 23:21 D-Dimer 0.57 mg/L FEU (<0.60) 11/23/20 23:21 Abnormal lab findings: Abnormal Labs 11/23/20 11/23/20 11/23/20 23:21 23:21 23:21 Lymphocytes # 0.4 L Sodium 131 L Potassium Carbon Dioxide 21 L Glucose 220 H POC Glucose (mg/dL) Plasma Lactic Acid Jorge 2.5 H* Calcium Ferritin 816.0 H Lactate Dehydrogenase 704 H C-Reactive Protein 151.4 H Total Protein 6.1 L Albumin Procalcitonin 11/23/20 11/24/20 11/24/20 23:21 07:45 07:45 Lymphocytes # 0.5 L Sodium 133 L Potassium 5.2 H Carbon Dioxide Glucose 200 H POC Glucose (mg/dL) Plasma Lactic Acid Jorge Calcium 8.1 L Ferritin Lactate Dehydrogenase 782 H C-Reactive Protein Total Protein 5.9 L Albumin 3.3 L Procalcitonin 0.24 H 11/24/20 12:32 Lymphocytes # Sodium Potassium Carbon Dioxide Glucose POC Glucose (mg/dL) 137 H Plasma Lactic Acid Jorge Calcium Ferritin Lactate Dehydrogenase C-Reactive Protein Total Protein Albumin Procalcitonin - Diagnostic Findings Chest x-ray: image reviewed CT scan - chest: image reviewed Assessment and Plan Assessment: Acute hypoxemic respiratory failure, secondary to COVID 19 pneumonia. History of chronic bronchial asthma. Previous history of tobacco use. History of hyperlipidemia. History of hypertension. History of osteoarthritis. Plan: Plan dated 11/24/2020. The patient is not a candidate for REM. The patient should get vitamin C, vitamin D3, and zinc. I don't believe his asthma is particularly active and he is only on 2 L nasal cannula. I would rather him get Decadron 6 mg per day either IV or orally, as opposed to Solu-Medrol. His usual asthma medication should be continued. I'll place him on Singulair and Symbicort here. No additional recommendations are made. The patient should have a repeat chest x- ray in a day or 2, and, repeat inflammatory markers in 2 or 3 days. Prognosis is guarded. We'll continue to follow and make recommendations where appropriate. Time with Patient: Greater than 30
--- NOTE | 2020-11-24 14:31 | P.HPIM ---
History of Present Illness H&P Date: 11/24/20 Chief Complaint: ALEXUS HISTORY OF PRESENT ILLNESS This is a 60-year-old male one of Dr. Lane and Dr. PATIENCE Griffith with a previous medical history significant for mild persistent asthma, hypertension and hypertensive cardio vascular disease, hyperlipidemia, psoriatic arthritis, morbid obesity hypoventilation syndrome, and diagnosed to have sleep apnea. Patient gives history of shortness of breath along with fever, chills and rigors, complete body aches. He has sputum production. He complains of tightness in his chest. He denies any lower extremity edema. She has had 2 ER visits on November 19 and November 21. Patient did receive Bamlanivimab on November 21 was discharged home. Patient returned due to increasing shortness of breath. Patient came into [facility] emergency center for evaluation. Temperature 102.8, heart rate 1 W, can't speak, respiratory rate 24, blood pressure initially 148/102, pulse ox 92% with oxygen.24BC 5.4, hemoglobin 14.6, platelet count 220. INR 0.9. D-dimer 0.57. Sodium 133, potassium 5.2, chloride 102, CO2 23, BUN 19 and creatinine 0.7. Lactic acid 2.5 and repeat of 1.1. LDH 782. C-reactive protein 151. Pro-calcitonin 0.25. Chest x-ray reveals bilateral infiltrates worsening from previous study. CT angiogram of the chest was negative for pulmonary embolism and showed scattered groundglass infiltrates. Patient admitted to the [facility] floor and pulmonary consult in place. REVIEW OF SYSTEMS Constitutional: Reports fever, Reports chills, no night sweats. No weight change. Reports weakness, Reports fatigue. No daytime sleepiness. EENT: No headache. No blurred vision or double vision, no loss of vision. No loss of Hearing, no ringing in the ears, no dizziness. No nasal drainage or congestion. No epistaxis. No sore throat. Lungs: Reports shortness of breath, Reports cough, Reports sputum production. No wheezing. Cardiovascular: No chest pain, no lower extremity edema. No palpitations. No paroxysmal nocturnal dyspnea. No orthopnea. No lightheadedness or dizziness. No syncopal episodes. Abdominal: No abdominal pain. No nausea, vomiting. No diarrhea. No constipation. No bloody or tarry stools.. No loss of appetite. Genitourinary: No dysuria, increased frequency, urgency. No urinary retention. Musculoskeletal: Reports myalgias. Reports muscle weakness, no gait dysfunction, no frequent falls. No back pain. No neck pain. Integumentary: No wounds, no lesions. No rash or pruritus. Neurologic: No aphasia. No facial droop. No change in mentation. No head injury. No headache. No paralysis. No paresthesia. Psychiatric: No depression. No anxiety. Endocrine: No abnormal blood sugars. No weight change. SOCIAL HISTORY Patient quit smoking about 38 years ago, after 4 years of use, no alcohol intake, has nebulizer no oxygen no CPAP machine, patient's lives with a friend. FAMILY HISTORY Mother of ovarian cancer at the age of 78yrs. Father around age 50 from a bleeding ulcer. The patient has 2 brothers and one from pneumonia at age 59, 1 is alive with history of bariatric surgery. Patient has 2 sisters and one has history of gallbladder disease. Patient has one daughter with no major medical problems. Patient has 2 sons and one has hypertension. PHYSICAL EXAMINATION Gen: This is an obese 60-year-old male. Patient appears to be comfortable at rest. HEENT: Head is atraumatic, normocephalic. Pupils equal, round. Sclerae is anicteric. NECK: Supple. No JVD. No lymphadenopathy. No thyromegaly. LUNGS: Scattered rhonchi and crackles bilaterally. No intercostal retractions. HEART: Regular rate and rhythm. No murmur. ABDOMEN: Soft. Bowel sounds are present. No masses. No tenderness. EXTREMITIES: No pedal edema. No calf tenderness. Dorsalis pedis +2 bilaterally. NEUROLOGICAL: Patient is awake, alert and oriented x3. Cranial nerves 2 through 12 are grossly intact. ASSESSMENT AND PLAN 1. Acute hypoxic respiratory failure secondary to COVID 19 pneumonia. Continue Lovenox 40 mg subcu daily, vitamin C,, vitamin D, zinc, Flovent, Ventolin inhaler every 6 hours as needed, oxygen therapy, Mucinex every 12 hours, pulmonary consult 2. Sepsis secondary to code 19 pneumonia. Continue IV fluids. 3. Lactic acidosis secondary to code 19, status post fluids. Continue IV fluid 0.9 normal saline at 75 mL per hour. 4. Hypertension. Continue lisinopril 20 mg daily. 5. Hyperlipidemia. Patient unable to tolerate statin. 6. Obesity with BMI of 35. 7. Obstructive sleep apnea. 8. Generalized osteoarthritis. 9. Mild persistent asthma with exacerbation. Continue doxycycline 100 mg twice daily, Symbicort twice daily, DuoNeb treatments 4 times daily as needed, Solu- Medrol 40 mg every 12 hours, Singulair 10 mg daily. 10. Obstructive sleep apnea. 11. Gastroesophageal reflux disease and GI prophylaxis. Protonix. 12. DVT prophylaxis. Lovenox subcu. Patient will be admitted to the hospital for a minimum of 2 night stay. DISCHARGE PLAN TBD. Impression and plan of care have been directed as dictated by the signing physician. Kiley Diaz nurse practitioner acting as scribe for signing physician. Past Medical History Past Medical History: Asthma, Hyperlipidemia, Hypertension, Osteoarthritis (OA) Additional Past Medical History / Comment(s): Persistent asthma, NIDDM II- arthritis R knee, History of Any Multi-Drug Resistant Organisms: None Reported Past Surgical History: Hernia Repair Additional Past Surgical History / Comment(s): Umbilical hernia repair Past Anesthesia/Blood Transfusion Reactions: Motion Sickness Past Psychological History: No Psychological Hx Reported Smoking Status: Former smoker Past Alcohol Use History: None Reported Past Drug Use History: None Reported - Past Family History Mother History Unknown: Yes Family Medical History: Cancer Additional Family Medical History / Comment(s): Mother of ovarian cancer at the age of 78yrs. Father History Unknown: Yes Family Medical History: GI Bleed Additional Family Medical History / Comment(s): Father around age 50 from a bleeding ulcer. Brother(s) Family Medical History: No Reported History Additional Family Medical History / Comment(s): The patient has 2 brothers and one from pneumonia at age 59, 1 is alive with history of bariatric surgery. Sister(s) Family Medical History: No Reported History Additional Family Medical History / Comment(s): Patient has 2 sisters and one has history of gallbladder disease. Daughter(s) Family Medical History: Unable to Obtain Additional Family Medical History / Comment(s): Patient has one daughter with no major medical problems. Son(s) Additional Family Medical History / Comment(s): Patient has 2 sons and one has hypertension. Medications and Allergies Home Medications Medication Instructions Recorded Confirmed Type Montelukast Sodium [Singulair] 10 mg PO HS 05/18/18 11/23/20 History Albuterol Nebulized [Ventolin 2.5 mg INHALATION RT-Q6H PRN 10/15/19 11/23/20 Hi story Nebulized] lisinopriL [Prinivil] 20 mg PO DAILY 03/09/20 11/23/20 History Fluticasone Propionate [Flovent 2 puff INHALATION RT-DAILY 06/16/20 11/23/20 History Hfa 220 mcg] Ondansetron [Zofran ODT] 4 mg PO Q8HR PRN #20 tab 11/21/20 11/23/20 Rx predniSONE 50 mg PO DAILY #5 tablet 11/21/20 11/23/20 Rx Albuterol Sulfate [Ventolin HFA] 2 puff INHALATION RT-Q6H PRN 11/23/20 11/23/20 History Ibuprofen [Motrin] 600 mg PO Q8HR PRN 11/23/20 11/23/20 History guaiFENesin-DM 600/30MG [Mucinex 2 tab PO Q12HR PRN 11/23/20 11/23/20 History Dm] Allergies Allergy/AdvReac Type Severity Reaction Status Date / Time Cthgoih-Kos-Zom Reductase AdvReac MUSCLE PAIN Verified 11/23/20 23:26 Inhibitor Physical Exam Vitals: Vital Signs Temp Pulse Resp BP Pulse Ox 11/24/20 10:35 98.5 F 86 18 125/76 96 11/24/20 07:25 98.3 F 74 18 136/80 96 11/24/20 06:06 98 F 78 20 138/90 96 11/24/20 02:26 98.5 F 94 20 119/66 94 L 11/24/20 00:50 100.1 F H 11/23/20 22:44 102.8 F H 124 H 24 148/102 92 L Intake and Output 11/23/20 11/24/20 11/24/20 22:59 06:59 14:59 Other: Weight 108.862 kg Results CBC & Chem 7: 11/24/20 07:45 11/24/20 07:45 Labs: Abnormal Lab Results - Last 24 Hours (Table) 11/23/20 11/23/20 11/23/20 Range/Units 23:21 23:21 23:21 Lymphocytes # 0.4 L (1.0-4.8) k/uL Sodium 131 L (137-145) mmol/L Potassium (3.5-5.1) mmol/L Carbon Dioxide 21 L (22-30) mmol/L Glucose 220 H (74-99) mg/dL POC Glucose (mg/dL) (75-99) mg/dL Plasma Lactic Acid Jorge 2.5 H* (0.7-2.0) mmol/L Calcium (8.4-10.2) mg/dL Ferritin 816.0 H (22.0-322.0) ng/mL Lactate Dehydrogenase 704 H (313-618) U/L C-Reactive Protein 151.4 H (<10.0) mg/L Total Protein 6.1 L (6.3-8.2) g/dL Albumin (3.5-5.0) g/dL Procalcitonin (0.02-0.09) ng/mL 11/23/20 11/24/20 11/24/20 Range/Units 23:21 07:45 07:45 Lymphocytes # 0.5 L (1.0-4.8) k/uL Sodium 133 L (137-145) mmol/L Potassium 5.2 H (3.5-5.1) mmol/L Carbon Dioxide (22-30) mmol/L Glucose 200 H (74-99) mg/dL POC Glucose (mg/dL) (75-99) mg/dL Plasma Lactic Acid Jorge (0.7-2.0) mmol/L Calcium 8.1 L (8.4-10.2) mg/dL Ferritin (22.0-322.0) ng/mL Lactate Dehydrogenase 782 H (313-618) U/L C-Reactive Protein (<10.0) mg/L Total Protein 5.9 L (6.3-8.2) g/dL Albumin 3.3 L (3.5-5.0) g/dL Procalcitonin 0.24 H (0.02-0.09) ng/mL 11/24/20 Range/Units 12:32 Lymphocytes # (1.0-4.8) k/uL Sodium (137-145) mmol/L Potassium (3.5-5.1) mmol/L Carbon Dioxide (22-30) mmol/L Glucose (74-99) mg/dL POC Glucose (mg/dL) 137 H (75-99) mg/dL Plasma Lactic Acid Jorge (0.7-2.0) mmol/L Calcium (8.4-10.2) mg/dL Ferritin (22.0-322.0) ng/mL Lactate Dehydrogenase (313-618) U/L C-Reactive Protein (<10.0) mg/L Total Protein (6.3-8.2) g/dL Albumin (3.5-5.0) g/dL Procalcitonin (0.02-0.09) ng/mL
[2020-11-24 17:53] LABS: Glucose,Whole Blood 174 mg/dL (75-99)
[2020-11-24] MEDS: SYMBICORT 160-4.5 MCG INHALER INHALATION SCH (20:54)
[2020-11-24] MEDS: MONTELUKAST 10 MG TAB PO SCH (22:55)
[2020-11-24 23:01] LABS: Glucose,Whole Blood 137 mg/dL (75-99)
[2020-11-25 07:11] LABS: Glucose,Whole Blood 139 mg/dL (75-99)
[2020-11-25] MEDS: INSULIN ASPART (NovoLOG) 100 UNIT/ML VIAL SQ SCH ×4 (08:54→22:01)
[2020-11-25] MEDS: dexAMETHasone 2 MG TAB PO SCH (08:55)
[2020-11-25] MEDS: ZINC SULFATE 220 MG CAP PO SCH (08:55)
[2020-11-25] MEDS: ASCORBIC ACID 500 MG TAB PO SCH (08:55)
[2020-11-25] MEDS: CHOLECALCIFEROL 25 MCG (1000 IU) TABLET PO SCH (08:55)
[2020-11-25] MEDS: PANTOPRAZOLE 40 MG TABLET PO SCH (08:55)
[2020-11-25] MEDS: ENOXAPARIN 40 MG/0.4 ML SYRINGE SQ SCH (08:55)
[2020-11-25] MEDS: lisinopriL 20 MG TAB PO SCH (08:55)
[2020-11-25] MEDS ORDERED: FUROSEMIDE 10 MG/ML 4 ML VIAL IV STA (08:57)
[2020-11-25] MEDS: ALBUTEROL HFA INHALER INHALATION PRN ×4 (09:58→20:28)
[2020-11-25 10:05] LABS: HCT 42.8 % (39.0-53.0); HGB 14.7 gm/dL (13.0-17.5); MCH 31.8 pg (25.0-35.0); MCHC 34.4 g/dL (31.0-37.0); MCV 92.5 fL (80.0-100.0); Mean Platelet Volume 6.5; Platelet Count 268 k/uL (150-450); RBC 4.63 m/uL (4.30-5.90); RDW 13.1 % (11.5-15.5); WBC 12.7 k/uL (3.8-10.6)
[2020-11-25] MEDS: SYMBICORT 160-4.5 MCG INHALER INHALATION SCH ×2 (10:08→20:28)
[2020-11-25 10:16] LABS: ALT 11 U/L (4-49); AST 26 U/L (17-59); African American GFR (CKD) >90 (>60 ml/min/1.73 sqM); Albumin 3.2 g/dL (3.5-5.0); Albumin/Globulin Ratio 1.2; Alkaline Phosphatase 48 U/L (38-126); Anion Gap 8 mmol/L; Blood Urea Nitrogen 21 mg/dL (9-20); C Reactive Protein 68.5 mg/L (<10.0); Calcium 8.2 mg/dL (8.4-10.2); Carbon Dioxide 28 mmol/L (22-30); Chloride 103 mmol/L (98-107); Globulin 2.7 g/dL; Glucose 164 mg/dL (74-99); LDH 873 U/L (313-618); Non-African American GFR(CKD) >90 (>60 ml/min/1.73 sqM); Potassium 4.3 mmol/L (3.5-5.1); Sodium 139 mmol/L (137-145); Total Bilirubin 0.5 mg/dL (0.2-1.3); Total Protein 5.9 g/dL (6.3-8.2)
[2020-11-25 11:52] LABS: Glucose,Whole Blood 121 mg/dL (75-99)
--- NOTE | 2020-11-25 12:37 | P.PN ---
Subjective Progress Note Date: 11/25/20 HISTORY OF PRESENT ILLNESS This is a 60-year-old male one of Dr. Lane and Dr. PATIENCE Griffith with a previous medical history significant for mild persistent asthma, hypertension and hypertensive cardio vascular disease, hyperlipidemia, psoriatic arthritis, morbid obesity hypoventilation syndrome, and diagnosed to have sleep apnea. Patient gives history of shortness of breath along with fever, chills and rigors, complete body aches. He has sputum production. He complains of tightness in his chest. He denies any lower extremity edema. She has had 2 ER visits on November 19 and November 21. Patient did receive Bamlanivimab on November 21 was discharged home. Patient returned due to increasing shortness of breath. Patient came into [facility] emergency center for evaluation. Temperature 102.8, heart rate 1 W, can't speak, respiratory rate 24, blood p ressure initially 148/102, pulse ox 92% with oxygen.24BC 5.4, hemoglobin 14.6, platelet count 220. INR 0.9. D-dimer 0.57. Sodium 133, potassium 5.2, chloride 102, CO2 23, BUN 19 and creatinine 0.7. Lactic acid 2.5 and repeat of 1.1. LDH 782. C-reactive protein 151. Pro-calcitonin 0.25. Chest x-ray reveals bilateral infiltrates worsening from previous study. CT angiogram of the chest was negative for pulmonary embolism and showed scattered groundglass infiltrates. Patient admitted to the [facility] floor and pulmonary consult in place. 11/25: Patient states that he is having shortness of breath with exertion. Overall shortness of breath has improved. He is on albuterol inhaler and Sy mbicort inhaler. He is currently on 3 L nasal cannula with pulse ox of 96%. Patient has been afebrile, heart rate 83, blood pressure 129/76. Repeat blood work reveals WBC 12.7. BUN 21 creatinine 0.81. Electrolytes are normal. Blood sugars have been running between 120 and 164. LDH is 873, C-reactive protein 68.5. Patient has been seen by pulmonary medicine with recommendations to provide Decadron versus Solu-Medrol and start Singulair and Symbicort. REVIEW OF SYSTEMS Constitutional: Reports fever, Reports chills, no night sweats. No weight change. Reports weakness, Reports fatigue. No daytime sleepiness. EENT: No headache. No blurred vision or double vision, no loss of vision. No loss of Hearing, no ringing in the ears, no dizziness. No nasal drainage or congestion. No epistaxis. No sore throat. Lungs: Reports shortness of breath, Reports cough, Reports sputum production. No wheezing. Reports shortness of breath with exertion. Cardiovascular: No chest pain, no lower extremity edema. No palpitations. No paroxysmal nocturnal dyspnea. No orthopnea. No lightheadedness or dizziness. No syncopal episodes. Abdominal: No abdominal pain. No nausea, vomiting. No diarrhea. No constipation. No bloody or tarry stools.. No loss of appetite. Genitourinary: No dysuria, increased frequency, urgency. No urinary retention. Musculoskeletal: Reports myalgias. Reports muscle weakness, no gait dysfunction, no frequent falls. No back pain. No neck pain. Integumentary: No wounds, no lesions. No rash or pruritus. Neurologic: No aphasia. No facial droop. No change in mentation. No head injury. No headache. No paralysis. No paresthesia. Psychiatric: No depression. No anxiety. Endocrine: No abnormal blood sugars. No weight change. PHYSICAL EXAMINATION Gen: This is an obese 60-year-old male. Patient appears to be comfortable at rest while in bed. HEENT: Head is atraumatic, normocephalic. Pupils equal, round. Sclerae is anicteric. NECK: Supple. No JVD. No lymphadenopathy. No thyromegaly. LUNGS: Scattered rhonchi and crackles bilaterally. No intercostal retractions. HEART: Regular rate and rhythm. No murmur. ABDOMEN: Soft. Bowel sounds are present. No masses. No tenderness. EXTREMITIES: No pedal edema. No calf tenderness. Dorsalis pedis +2 bilaterally. NEUROLOGICAL: Patient is awake, alert and oriented x3. Cranial nerves 2 through 12 are grossly intact. ASSESSMENT AND PLAN 1. Acute hypoxic respiratory failure secondary to COVID 19 pneumonia. Rufus nue Lovenox 40 mg subcu daily, vitamin C,, vitamin D, zinc, Symbicort twice daily, Ventolin inhaler every 6 hours as needed, oxygen therapy, Mucinex every 12 hours, pulmonary consult appreciated. One dose of IV Lasix today. 2. Sepsis secondary to code 19 pneumonia. Discontinue IV fluids. 3. Lactic acidosis secondary to code 19, status post fluids. 4. Hypertension. Continue lisinopril 20 mg daily. 5. Hyperlipidemia. Patient unable to tolerate statin. 6. Obesity with BMI of 35. 7. Obstructive sleep apnea. 8. Generalized osteoarthritis. 9. Mild persistent asthma with exacerbation. Continue Symbicort twice daily, albuterol, Singulair 10 mg daily. 10. Obstructive sleep apnea. 11. Gastroesophageal reflux disease and GI prophylaxis. Protonix. 12. DVT prophylaxis. Lovenox subcu. DISCHARGE PLAN TBD. Impression and plan of care have been directed as dictated by the signing physician. Kiley Diaz nurse practitioner acting as scribe for signing physician. Objective - Vital Signs Vital signs: Vital Signs Temp 98.8 F 11/25/20 08:00 Pulse 83 11/25/20 08:00 Resp 20 11/25/20 08:00 BP 129/76 11/25/20 08:00 Pulse Ox 96 11/25/20 08:00 Intake & Output 11/24/20 11/25/20 11/25/20 18:59 06:59 18:59 Weight 108.862 kg Other: Voiding Method Toilet # Voids 2 - Labs CBC & Chem 7: 11/25/20 09:42 11/25/20 09:42 Labs: Abnormal Lab Results - Last 24 Hours (Table) 11/23/20 11/23/20 11/24/20 Range/Units 23:21 23:21 12:32 POC Glucose (mg/dL) 137 H (75-99) mg/dL Ferritin 816.0 H (22.0-322.0) ng/mL Procalcitonin 0.24 H (0.02-0.09) ng/mL 11/24/20 11/24/20 11/25/20 Range/Units 17:51 23:00 07:10 POC Glucose (mg/dL) 174 H 137 H 139 H (75-99) mg/dL Ferritin (22.0-322.0) ng/mL Procalcitonin (0.02-0.09) ng/mL
--- NOTE | 2020-11-25 13:37 | P.PN ---
Subjective Progress Note Date: 11/25/20 Principal diagnosis: CoVID 19 pneumonia This is a 60-year-old male, who was seen in the emergency room on November 23. He was brought in by EMS, because of shortness of breath. In addition, he complained of fever, and chills. He apparently tested positive for COVID 19 last Saturday. He's been sick for about 12 days. He was on oxygen 2 L/m, and getting saline at 75 mL an hour. The patient has a history of chronic bronchial asthma, hyperlipidemia, hypertension, and osteoarthritis. He also suffers from type 2 diabetes mellitus, and degenerative joint disease in his right knee. The patient is a former smoker. His primary care physician is Dr. Lane. Currently, the patient complains of when these sitting still, he's fine but when he moves about or does any activity, he gets very short of breath. He denies any chest pain or chest discomfort. He denies any GI complaints or rash. White count 5.4, hemoglobin 14.6, hematocrit 42.8, and platelet count 220,000. PT 10. 2, INR 0.9, PTT 24.1, and d-dimer 0.57. Sodium 133, potassium 5.2, chlorides 102, CO2 23, anion gap 8, BUN 19, creatinine 0.7. Initial lactic acid was 2. 5 repeat was 1.1 LDH is 782 C-reactive protein is 151.4, and pro-calcitonin level was 0.24. Chest x-ray shows some bilateral infiltrates, worse than a chest x- ray that was done on the . CT angiogram was negative for pulmonary embolism, and showed scattered groundglass infiltrates. The patient is seen today 11/25/2020 in follow-up in the regular medical floor. He is currently sitting up in bed. Awake and alert in no acute distress. Only doing about the same today. Still with cough and congestion. Still short of breath with minimal exertion. White count 12.7. Hemoglobin 14.7. Sodium 139. Potassium 4.3. Creatinine 0.81. LDH 873. C-reactive protein 68.5. He remains on Lovenox, Decadron, vitamin supplements. Objective - Vital Signs Vital signs: Vital Signs Temp 98.8 F 11/25/20 08:00 Pulse 83 11/25/20 08:00 Resp 20 11/25/20 08:00 BP 129/76 11/25/20 08:00 Pulse Ox 93 L 11/25/20 12:43 Intake & Output 11/24/20 11/25/20 11/25/20 18:59 06:59 18:59 Intake Total 180 Output Total 1750 Balance -1570 Weight 108.862 kg Intake: Oral 180 Output: Urine 1750 Other: Voiding Method Toilet # Voids 2 - Exam GENERAL EXAM: Alert, 60-year-old gentleman, on 3 L nasal cannula, comfortable in no apparent distress. HEAD: Normocephalic. EYES: Normal reaction of pupils, equal size. NOSE: Clear with pink turbinates. THROAT: No erythema or exudates. NECK: No masses, no JVD. CHEST: No chest wall deformity. LUNGS: Equal air entry with bibasilar crackles CVS: S1 and S2 normal with no audible murmur, regular rhythm. ABDOMEN: No hepatosplenomegaly, normal bowel sounds, no guarding or rigidity. SPINE: No scoliosis or deformity SKIN: No rashes CENTRAL NERVOUS SYSTEM: No focal deficits, tone is normal in all 4 extremities. EXTREMITIES: There is no peripheral edema. No clubbing, no cyanosis. Peripheral pulses are intact. - Labs CBC & Chem 7: 11/25/20 09:42 11/25/20 09:42 Labs: Abnormal Lab Results - Last 24 Hours (Table) 11/24/20 11/24/20 11/25/20 Range/Units 17:51 23:00 07:10 WBC (3.8-10.6) k/uL BUN (9-20) mg/dL Glucose (74-99) mg/dL POC Glucose (mg/dL) 174 H 137 H 139 H (75-99) mg/dL Calcium (8.4-10.2) mg/dL Lactate Dehydrogenase (313-618) U/L C-Reactive Protein (<10.0) mg/L Total Protein (6.3-8.2) g/dL Albumin (3.5-5.0) g/dL 11/25/20 11/25/20 11/25/20 Range/Units 09:42 09:42 11:50 WBC 12.7 H (3.8-10.6) k/uL BUN 21 H (9-20) mg/dL Glucose 164 H (74-99) mg/dL POC Glucose (mg/dL) 121 H (75-99) mg/dL Calcium 8.2 L (8.4-10.2) mg/dL Lactate Dehydrogenase 873 H (313-618) U/L C-Reactive Protein 68.5 H (<10.0) mg/L Total Protein 5.9 L (6.3-8.2) g/dL Albumin 3.2 L (3.5-5.0) g/dL Assessment and Plan Assessment: 1 Acute hypoxemic respiratory failure secondary to cover 19 pneumonia 2 History of chronic bronchial asthma 3 Previous history of chronic tobacco dependence 4 Hyperlipidemia 5 Hypertension 6 Osteoarthritis Plan: The patient was seen and evaluated by Dr. Bonds Still remains on 3 L nasal cannula to maintain O2 saturation in the low 90s Continue Decadron, Lovenox, vitamin supplement We will continue to follow I, the cosigning physician, performed a history & physical examination of the patient. Lungs sounds with crackles in the bilateral bases. Maintaining good O2 saturations in the 90s on 3 L nasal cannula. I discussed the assessment and plan of care with my nurse practitioner, Nani Carreno. I attest to the above note as dictated by her.
[2020-11-25 17:13] LABS: Glucose,Whole Blood 163 mg/dL (75-99)
[2020-11-25 20:13] LABS: Glucose,Whole Blood 188 mg/dL (75-99)
[2020-11-25] MEDS: MONTELUKAST 10 MG TAB PO SCH (22:00)
[2020-11-26] MEDS: ACETAMINOPHEN TAB 325 MG TAB PO PRN (03:48)
[2020-11-26 07:22] LABS: Glucose,Whole Blood 125 mg/dL (75-99)
[2020-11-26] MEDS: INSULIN ASPART (NovoLOG) 100 UNIT/ML VIAL SQ SCH ×4 (07:42→22:29)
[2020-11-26] MEDS: PANTOPRAZOLE 40 MG TABLET PO SCH (07:52)
[2020-11-26] MEDS: SYMBICORT 160-4.5 MCG INHALER INHALATION SCH ×2 (08:07→21:00)
[2020-11-26] MEDS: ALBUTEROL HFA INHALER INHALATION PRN ×4 (08:07→20:59)
--- NOTE | 2020-11-26 09:23 | P.PN ---
Subjective Progress Note Date: 11/26/20 Principal diagnosis: Shortness of breath. This is a 60-year-old male, who was seen in the emergency room on November 23. He was brought in by EMS, because of shortness of breath. In addition, he complained of fever, and chills. He apparently tested positive for COVID 19 last Saturday. He's been sick for about 12 days. He was on oxygen 2 L/m, and getting saline at 75 mL an hour. The patient has a history of chronic bronchial asthma, hyperlipidemia, hypertension, and osteoarthritis. He also suffers from type 2 diabetes mellitus, and degenerative joint disease in his right knee. The patient is a former smoker. His primary care physician is Dr. Lane. Currently, the patient complains of when these sitting still, he's fine but when he moves about or does any activity, he gets very short of breath. He denies any chest pain or chest discomfort. He denies any GI complaints or rash. White count 5.4, hemoglobin 14.6, hematocrit 42.8, and platelet count 220,000. PT 1 0.2, INR 0.9, PTT 24.1, and d-dimer 0.57. Sodium 133, potassium 5.2, chlorides 102, CO2 23, anion gap 8, BUN 19, creatinine 0.7. Initial lactic acid was 2. 5 repeat was 1.1 LDH is 782 C-reactive protein is 151.4, and pro-calcitonin level was 0.24. Chest x-ray shows some bilateral infiltrates, worse than a chest x- ray that was done on the . CT angiogram was negative for pulmonary embolism, and showed scattered groundglass infiltrates. The patient is seen today 11/25/2020 in follow-up in the regular medical floor. He is currently sitting up in bed. Awake and alert in no acute distress. Only doing about the same today. Still with cough and congestion. Still short of breath with minimal exertion. White count 12.7. Hemoglobin 14.7. Sodium 139. Potassium 4.3. Creatinine 0.81. LDH 873. C-reactive protein 68.5. He remains on Lovenox, Decadron, vitamin supplements. Progress note dated 11/26/2020. 60-year-old male, who I saw initially in consultation in the emergency depa rtment. The patient was seen in the emergency room initially on November 23. It was brought in by EMS because of shortness of breath. He also had fever or chills. The patient had been sick for about 12 days when I saw him a couple days ago. The patient has a history of asthma, hyperlipidemia, hypertension, osteoarthritis. His primary care provider is Dr. Lane. Currently, the patient's on 3 L nasal cannula. He's not receiving any IV fluids. The patient feels like he is a bit better. I told him he needs to get out of bed, sit up, and when he is in bed, we right side down, left side down, supine, and prone. No new labs today. No new chest x-rays today. Objective - Vital Signs Vital signs: Vital Signs Temp 98.1 F 11/26/20 08:00 Pulse 70 11/26/20 08:00 Resp 20 11/26/20 08:00 BP 128/82 11/26/20 08:00 Pulse Ox 96 11/26/20 08:00 Intake & Output 11/25/20 11/26/20 11/26/20 18:59 06:59 18:59 Intake Total 1180 Output Total 2150 Balance -970 Intake: Oral 1180 Output: Urine 2150 Other: # Voids 1 - Exam No acute distress, oriented 3. Currently on 3 L. No audible wheezing, use of accessory muscles, or conversational dyspnea. HEENT examination is grossly unremarkable. Mucous membranes are moist. No oral lesions. Neck supple. Full range of motion. No adenopathy thyromegaly or neck vein distention. Cardiovascular examination reveals regular rhythm rate. S1-S2 normal. No S3 or S4. No discernible murmur noted. Heart rate 70 bpm. Lungs reveal diffuse bilateral rhonchi and crackles. No wheezes. Breath sounds equal bilaterally. He coughs when he takes a deep breath. Abdomen soft bowel sounds are heard. No masses or tenderness. Extremities are intact. No cyanosis clubbing or edema. Skin is without rash or lesion. Neurologic examination is brief but nonfocal. - Labs CBC & Chem 7: 11/25/20 09:42 11/25/20 09:42 Labs: Abnormal Lab Results - Last 24 Hours (Table) 11/25/20 11/25/20 11/25/20 Range/Units 09:42 09:42 11:50 WBC 12.7 H (3.8-10.6) k/uL D-Dimer (<0.60) mg/L FEU BUN 21 H (9-20) mg/dL Glucose 164 H (74-99) mg/dL POC Glucose (mg/dL) 121 H (75-99) mg/dL Calcium 8.2 L (8.4-10.2) mg/dL Ferritin 966.0 H (22.0-322.0) ng/mL Lactate Dehydrogenase 873 H (313-618) U/L C-Reactive Protein 68.5 H (<10.0) mg/L Total Protein 5.9 L (6.3-8.2) g/dL Albumin 3.2 L (3.5-5.0) g/dL 11/25/20 11/25/20 11/26/20 Range/Units 17:12 20:12 06:17 WBC (3.8-10.6) k/uL D-Dimer 0.78 H (<0.60) mg/L FEU BUN (9-20) mg/dL Glucose (74-99) mg/dL POC Glucose (mg/dL) 163 H 188 H (75-99) mg/dL Calcium (8.4-10.2) mg/dL Ferritin (22.0-322.0) ng/mL Lactate Dehydrogenase (313-618) U/L C-Reactive Protein (<10.0) mg/L Total Protein (6.3-8.2) g/dL Albumin (3.5-5.0) g/dL 11/26/20 Range/Units 07:20 WBC (3.8-10.6) k/uL D-Dimer (<0.60) mg/L FEU BUN (9-20) mg/dL Glucose (74-99) mg/dL POC Glucose (mg/dL) 125 H (75-99) mg/dL Calcium (8.4-10.2) mg/dL Ferritin (22.0-322.0) ng/mL Lactate Dehydrogenase (313-618) U/L C-Reactive Protein (<10.0) mg/L Total Protein (6.3-8.2) g/dL Albumin (3.5-5.0) g/dL Assessment and Plan Assessment: Acute hypoxemic respiratory failure, secondary to COVID 19 pneumonia. History of chronic bronchial asthma. Previous history of tobacco use. History of hyperlipidemia. History of hypertension. History of osteoarthritis. Plan: Plan dated 11/26/2020. The patient is on appropriate medications including Lovenox, Decadron, vitamin C, vitamin D3, and zinc. He was not a candidate for REM. The patient is also getting medications for his asthma including Symbicort and albuterol inhaler. I told the patient continues to get out of bed. He needs to sit up in the chair. This will improve his oxygenation his breathing. In addition, when in bed, right side down, left side down, supine, and prone positioning help. Additional recommendations and suggestions are forthcoming. Prognosis is guarded. We'll continue to follow. Time with Patient: Less than 30
[2020-11-26] MEDS: dexAMETHasone 2 MG TAB PO SCH (09:44)
[2020-11-26] MEDS: CHOLECALCIFEROL 25 MCG (1000 IU) TABLET PO SCH (09:44)
[2020-11-26] MEDS: ZINC SULFATE 220 MG CAP PO SCH (09:44)
[2020-11-26] MEDS: lisinopriL 20 MG TAB PO SCH ×2 (09:44→12:27)
[2020-11-26] MEDS: ENOXAPARIN 40 MG/0.4 ML SYRINGE SQ SCH (09:44)
[2020-11-26] MEDS: ASCORBIC ACID 500 MG TAB PO SCH (09:44)
[2020-11-26 12:16] LABS: Glucose,Whole Blood 202 mg/dL (75-99)
[2020-11-26 16:57] LABS: Glucose,Whole Blood 194 mg/dL (75-99)
[2020-11-26 19:42] LABS: Glucose,Whole Blood 232 mg/dL (75-99)
[2020-11-26] MEDS: MONTELUKAST 10 MG TAB PO SCH (22:29)
--- NOTE | 2020-11-26 22:30 | P.PN ---
Subjective Progress Note Date: 11/26/20 HISTORY OF PRESENT ILLNESS This is a 60-year-old male one of Dr. Lane and Dr. PATIENCE Griffith with a previous medical history significant for mild persistent asthma, hypertension and hypertensive cardio vascular disease, hyperlipidemia, psoriatic arthritis, morbid obesity hypoventilation syndrome, and diagnosed to have sleep apnea. Patient gives history of shortness of breath along with fever, chills and rigors, complete body aches. He has sputum production. He complains of tightness in his chest. He denies any lower extremity edema. She has had 2 ER visits on November 19 and November 21. Patient did receive Bamlanivimab on November 21 was discharged home. Patient returned due to increasing shortness of breath. Patient came into [facility] emergency center for evaluation. Temperature 102.8, heart rate 1 W, can't speak, respiratory rate 24, blood p ressure initially 148/102, pulse ox 92% with oxygen.24BC 5.4, hemoglobin 14.6, platelet count 220. INR 0.9. D-dimer 0.57. Sodium 133, potassium 5.2, chloride 102, CO2 23, BUN 19 and creatinine 0.7. Lactic acid 2.5 and repeat of 1.1. LDH 782. C-reactive protein 151. Pro-calcitonin 0.25. Chest x-ray reveals bilateral infiltrates worsening from previous study. CT angiogram of the chest was negative for pulmonary embolism and showed scattered groundglass infiltrates. Patient admitted to the [facility] floor and pulmonary consult in place. /2: Patient states that he is having shortness of breath with exertion. Overall shortness of breath has improved. He is on albuterol inhaler and Sy mbicort inhaler. He is currently on 3 L nasal cannula with pulse ox of 96%. Patient has been afebrile, heart rate 83, blood pressure 129/76. Repeat blood work reveals WBC 12.7. BUN 21 creatinine 0.81. Electrolytes are normal. Blood sugars have been running between 120 and 164. LDH is 873, C-reactive protein 68.5. Patient has been seen by pulmonary medicine with recommendations to provide Decadron versus Solu-Medrol and start Singulair and Symbicort. 3: Patient is doing slightly better still required quite with oxygen at this point, was seen and evaluated by pulmonary continue current management his chest x-ray still showing quite bit infiltrate pulse ox is running in the mid 90 on 3- 5 L of O2. Patient will be ready probably for discharge on Saturday. REVIEW OF SYSTEMS Constitutional: Reports fever, Reports chills, no night sweats. No weight change. Reports weakness, Reports fatigue. No daytime sleepiness. EENT: No headache. No blurred vision or double vision, no loss of vision. No loss of Hearing, no ringing in the ears, no dizziness. No nasal drainage or congestion. No epistaxis. No sore throat. Lungs: Reports shortness of breath, Reports cough, Reports sputum production. No wheezing. Reports shortness of breath with exertion. Cardiovascular: No chest pain, no lower extremity edema. No palpitations. No paroxysmal nocturnal dyspnea. No orthopnea. No lightheadedness or dizziness. No syncopal episodes. Abdominal: No abdominal pain. No nausea, vomiting. No diarrhea. No constipation. No bloody or tarry stools.. No loss of appetite. Genitourinary: No dysuria, increased frequency, urgency. No urinary retention. Musculoskeletal: Reports myalgias. Reports muscle weakness, no gait dysfunction, no frequent falls. No back pain. No neck pain. Integumentary: No wounds, no lesions. No rash or pruritus. Neurologic: No aphasia. No facial droop. No change in mentation. No head injury. No headache. No paralysis. No paresthesia. Psychiatric: No depression. No anxiety. Endocrine: No abnormal blood sugars. No weight change. PHYSICAL EXAMINATION Gen: This is an obese 60-year-old male. Patient appears to be comfortable at rest while in bed. HEENT: Head is atraumatic, normocephalic. Pupils equal, round. Sclerae is anicteric. NECK: Supple. No JVD. No lymphadenopathy. No thyromegaly. LUNGS: Scattered rhonchi and crackles bilaterally. No intercostal retractions. HEART: Regular rate and rhythm. No murmur. ABDOMEN: Soft. Bowel sounds are present. No masses. No tenderness. EXTREMITIES: No pedal edema. No calf tenderness. Dorsalis pedis +2 bilaterally. NEUROLOGICAL: Patient is awake, alert and oriented x3. Cranial nerves 2 through 12 are grossly intact. ASSESSMENT AND PLAN 1. Acute hypoxic respiratory failure secondary to COVID 19 pneumonia. Continue Lovenox 40 mg subcu daily, vitamin C,, vitamin D, zinc, Symbicort twice daily, Ventolin inhaler every 6 hours as needed, oxygen therapy, Mucinex every 12 hours, pulmonary consult appreciated. One dose of IV Lasix today. Continue O2 and hopefully will start coming down on O2 in the next 24 hours. 2. Sepsis secondary to Covid 19 pneumonia. Continue supportive care he doesn't have any more sepsis sign and symptoms. 3. Lactic acidosis secondary to Covid 19, continue hydration. 4. Hypertension. Continue lisinopril 20 mg daily. 5. Hyperlipidemia. Patient unable to tolerate statin. 6. Obesity with BMI of 35. 7. Obstructive sleep apnea. 8. Generalized osteoarthritis. 9. Mild persistent asthma with exacerbation. Specially with Covid 19. Continue Symbicort twice daily, albuterol, Singulair 10 mg daily. 10. Severe hyperglycemia: Blood sugar running in the high 100 continue Accu- Chek with sliding scales coverage 11. Gastroesophageal reflux disease and GI prophylaxis. Protonix. 12. DVT prophylaxis. Lovenox subcu. DISCHARGE PLAN TBD. In the next 48 hours. Objective - Vital Signs Vital signs: Vital Signs Temp 98.6 F 11/26/20 00:31 Pulse 86 11/26/20 00:31 Resp 22 11/26/20 00:31 BP 123/77 11/26/20 00:31 Pulse Ox 91 L 11/26/20 00:31 Intake & Output 11/25/20 11/25/20 11/26/20 06:59 18:59 06:59 Intake Total 1180 Output Total 2150 Balance -970 Weight 108.862 kg Intake: Oral 1180 Output: Urine 2150 Other: Voiding Method Toilet # Voids 2 1 - Labs CBC & Chem 7: 11/25/20 09:42 11/25/20 09:42 Labs: Abnormal Lab Results - Last 24 Hours (Table) 11/25/20 11/25/20 11/25/20 Range/Units 07:10 09:42 09:42 WBC 12.7 H (3.8-10.6) k/uL BUN 21 H (9-20) mg/dL Glucose 164 H (74-99) mg/dL POC Glucose (mg/dL) 139 H (75-99) mg/dL Calcium 8.2 L (8.4-10.2) mg/dL Ferritin 966.0 H (22.0-322.0) ng/mL Lactate Dehydrogenase 873 H (313-618) U/L C-Reactive Protein 68.5 H (<10.0) mg/L Total Protein 5.9 L (6.3-8.2) g/dL Albumin 3.2 L (3.5-5.0) g/dL 11/25/20 11/25/20 11/25/20 Range/Units 11:50 17:12 20:12 WBC (3.8-10.6) k/uL BUN (9-20) mg/dL Glucose (74-99) mg/dL POC Glucose (mg/dL) 121 H 163 H 188 H (75-99) mg/dL Calcium (8.4-10.2) mg/dL Ferritin (22.0-322.0) ng/mL Lactate Dehydrogenase (313-618) U/L C-Reactive Protein (<10.0) mg/L Total Protein (6.3-8.2) g/dL Albumin (3.5-5.0) g/dL
[2020-11-27 07:49] LABS: Glucose,Whole Blood 168 mg/dL (75-99)
[2020-11-27] MEDS: INSULIN ASPART (NovoLOG) 100 UNIT/ML VIAL SQ SCH ×4 (08:25→21:04)
[2020-11-27] MEDS: PANTOPRAZOLE 40 MG TABLET PO SCH (08:25)
[2020-11-27] MEDS: SYMBICORT 160-4.5 MCG INHALER INHALATION SCH ×2 (09:11→21:46)
[2020-11-27] MEDS: ALBUTEROL HFA INHALER INHALATION PRN ×4 (09:11→21:47)
[2020-11-27] MEDS: lisinopriL 20 MG TAB PO SCH (09:23)
[2020-11-27] MEDS: CHOLECALCIFEROL 25 MCG (1000 IU) TABLET PO SCH (09:23)
[2020-11-27] MEDS: ENOXAPARIN 40 MG/0.4 ML SYRINGE SQ SCH (09:23)
[2020-11-27] MEDS: ASCORBIC ACID 500 MG TAB PO SCH (09:23)
[2020-11-27] MEDS: dexAMETHasone 2 MG TAB PO SCH (09:23)
[2020-11-27] MEDS: ZINC SULFATE 220 MG CAP PO SCH (09:23)
--- NOTE | 2020-11-27 10:48 | P.PN ---
Subjective Progress Note Date: 11/27/20 HISTORY OF PRESENT ILLNESS This is a 60-year-old male one of Dr. Lane and Dr. PATIENCE Griffith with a previous medical history significant for mild persistent asthma, hypertension and hypertensive cardio vascular disease, hyperlipidemia, psoriatic arthritis, morbid obesity hypoventilation syndrome, and diagnosed to have sleep apnea. Patient gives history of shortness of breath along with fever, chills and rigors, complete body aches. He has sputum production. He complains of tightness in his chest. He denies any lower extremity edema. She has had 2 ER visits on November 19 and November 21. Patient did receive Bamlanivimab on November 21 was discharged home. Patient returned due to increasing shortness of breath. Patient came into [facility] emergency center for evaluation. Temperature 102.8, heart rate 1 W, can't speak, respiratory rate 24, blood p ressure initially 148/102, pulse ox 92% with oxygen.24BC 5.4, hemoglobin 14.6, platelet count 220. INR 0.9. D-dimer 0.57. Sodium 133, potassium 5.2, chloride 102, CO2 23, BUN 19 and creatinine 0.7. Lactic acid 2.5 and repeat of 1.1. LDH 782. C-reactive protein 151. Pro-calcitonin 0.25. Chest x-ray reveals bilateral infiltrates worsening from previous study. CT angiogram of the chest was negative for pulmonary embolism and showed scattered groundglass infiltrates. Patient admitted to the [facility] floor and pulmonary consult in place. /2: Patient states that he is having shortness of breath with exertion. Overall shortness of breath has improved. He is on albuterol inhaler and Sy mbicort inhaler. He is currently on 3 L nasal cannula with pulse ox of 96%. Patient has been afebrile, heart rate 83, blood pressure 129/76. Repeat blood work reveals WBC 12.7. BUN 21 creatinine 0.81. Electrolytes are normal. Blood sugars have been running between 120 and 164. LDH is 873, C-reactive protein 68.5. Patient has been seen by pulmonary medicine with recommendations to provide Decadron versus Solu-Medrol and start Singulair and Symbicort. 3: Patient is doing slightly better still required quite with oxygen at this point, was seen and evaluated by pulmonary continue current management his chest x-ray still showing quite bit infiltrate pulse ox is running in the mid 90 on 3- 5 L of O2. Patient will be ready probably for discharge on Saturday. 11/27: Patient had a rough night last night still having significant hypoxia and shortness of breath he is on 3 L for 2 to keep his pulse ox above 90 percentile, still having significant cough low-grade temperature. His lab is pending spawning patient is having worsening symptom with minimum exertion, continued see pulmonary if she is doing well hopefully might be able to get discharged tomorrow. REVIEW OF SYSTEMS Constitutional: Reports fever, Reports chills, no night sweats. No weight change. Reports weakness, Reports fatigue. No daytime sleepiness. EENT: No headache. No blurred vision or double vision, no loss of vision. No loss of Hearing, no ringing in the ears, no dizziness. No nasal drainage or congestion. No epistaxis. No sore throat. Lungs: Reports shortness of breath, Reports cough, Reports sputum production. No wheezing. Reports shortness of breath with exertion. Cardiovascular: No chest pain, no lower extremity edema. No palpitations. No paroxysmal nocturnal dyspnea. No orthopnea. No lightheadedness or dizziness. No syncopal episodes. Abdominal: No abdominal pain. No nausea, vomiting. No diarrhea. No constipation. No bloody or tarry stools.. No loss of appetite. Genitourinary: No dysuria, increased frequency, urgency. No urinary retention. Musculoskeletal: Reports myalgias. Reports muscle weakness, no gait dysfunction, no frequent falls. No back pain. No neck pain. Integumentary: No wounds, no lesions. No rash or pruritus. Neurologic: No aphasia. No facial droop. No change in mentation. No head injury. No headache. No paralysis. No paresthesia. Psychiatric: No depression. No anxiety. Endocrine: No abnormal blood sugars. No weight change. PHYSICAL EXAMINATION Gen: This is an obese 60-year-old male. Patient appears to be comfortable at rest while in bed. HEENT: Head is atraumatic, normocephalic. Pupils equal, round. Sclerae is anicteric. NECK: Supple. No JVD. No lymphadenopathy. No thyromegaly. LUNGS: Scattered rhonchi and crackles bilaterally. No intercostal retractions. HEART: Regular rate and rhythm. No murmur. ABDOMEN: Soft. Bowel sounds are present. No masses. No tenderness. EXTREMITIES: No pedal edema. No calf tenderness. Dorsalis pedis +2 bilaterally. NEUROLOGICAL: Patient is awake, alert and oriented x3. Cranial nerves 2 through 12 are grossly intact. ASSESSMENT AND PLAN 1. Acute hypoxic respiratory failure secondary to COVID 19 pneumonia. Continue Lovenox 40 mg subcu daily, vitamin C,, vitamin D, zinc, Symbicort twice daily, Ventolin inhaler every 6 hours as needed, oxygen therapy, Mucinex every 12 hours, pulmonary consult appreciated. One dose of IV Lasix today. We'll repeat another chest x-ray along with his marker tomorrow morning and if his pulse ox is better require less than 5 feet 042 might be able to leave the hospital on oxygen. 2. Sepsis secondary to Covid 19 pneumonia. Continue supportive care he doesn't have any more sepsis sign and symptoms. 3. Lactic acidosis secondary to Covid 19, continue hydration. 4. Hypertension. Continue lisinopril 20 mg daily. 5. Hyperlipidemia. Patient unable to tolerate statin. 6. Type 2 diabetes: With worsening blood sugar aggravated by steroid continue Accu-Chek with sliding scales coverage. 7. Obstructive sleep apnea. O2 and highly recommend CPAP 8. Debility: Titrate physical therapy 9. Mild persistent asthma with exacerbation. Specially with Covid 19. Continue Symbicort twice daily, albuterol, Singulair 10 mg daily. 10. Severe hyperglycemia: Blood sugar running in the high 100 continue Accu- Chek with sliding scales coverage 11. Gastroesophageal reflux disease and GI prophylaxis. Protonix. 12. DVT prophylaxis. Lovenox subcu. DISCHARGE PLAN Hopefully home on Saturday. Objective - Vital Signs Vital signs: Vital Signs Temp 97.8 F 11/27/20 02:00 Pulse 70 11/27/20 02:00 Resp 15 11/27/20 02:00 BP 128/70 11/27/20 02:00 Pulse Ox 93 L 11/27/20 02:00 Intake & Output 11/26/20 11/26/20 11/27/20 06:59 18:59 06:59 Intake Total 480 Output Total 300 250 Balance 180 -250 Intake: Oral 480 Output: Urine 300 250 Other: Voiding Method Toilet # Voids 2 - Labs CBC & Chem 7: 11/25/20 09:42 04/02/21 09:42 Labs: Abnormal Lab Results - Last 24 Hours (Table) 11/26/20 11/26/20 11/26/20 Range/Units 06:17 07:20 12:15 D-Dimer 0.78 H (<0.60) mg/L FEU POC Glucose (mg/dL) 125 H 202 H (75-99) mg/dL 11/26/20 11/26/20 Range/Units 16:55 19:40 D-Dimer (<0.60) mg/L FEU POC Glucose (mg/dL) 194 H 232 H (75-99) mg/dL
[2020-11-27 11:50] LABS: Glucose,Whole Blood 132 mg/dL (75-99)
--- NOTE | 2020-11-27 13:29 | P.PN ---
Subjective Progress Note Date: 11/27/20 Principal diagnosis: Shortness of breath. This is a 60-year-old male, who was seen in the emergency room on November 23. He was brought in by EMS, because of shortness of breath. In addition, he complained of fever, and chills. He apparently tested positive for COVID 19 last Saturday. He's been sick for about 12 days. He was on oxygen 2 L/m, and getting saline at 75 mL an hour. The patient has a history of chronic bronchial asthma, hyperlipidemia, hypertension, and osteoarthritis. He also suffers from type 2 diabetes mellitus, and degenerative joint disease in his right knee. The patient is a former smoker. His primary care physician is Dr. Lane. Currently, the patient complains of when these sitting still, he's fine but when he moves about or does any activity, he gets very short of breath. He denies any chest pain or chest discomfort. He denies any GI complaints or rash. White count 5.4, hemoglobin 14.6, hematocrit 42.8, and platelet count 220,000. PT 1 0.2, INR 0.9, PTT 24.1, and d-dimer 0.57. Sodium 133, potassium 5.2, chlorides 102, CO2 23, anion gap 8, BUN 19, creatinine 0.7. Initial lactic acid was 2. 5 repeat was 1.1 LDH is 782 C-reactive protein is 151.4, and pro-calcitonin level was 0.24. Chest x-ray shows some bilateral infiltrates, worse than a chest x- ray that was done on the . CT angiogram was negative for pulmonary embolism, and showed scattered groundglass infiltrates. The patient is seen today 11/25/2020 in follow-up in the regular medical floor. He is currently sitting up in bed. Awake and alert in no acute distress. Only doing about the same today. Still with cough and congestion. Still short of breath with minimal exertion. White count 12.7. Hemoglobin 14.7. Sodium 139. Potassium 4.3. Creatinine 0.81. LDH 873. C-reactive protein 68.5. He remains on Lovenox, Decadron, vitamin supplements. Progress note dated 11/26/2020. 60-year-old male, who I saw initially in consultation in the emergency depa rtment. The patient was seen in the emergency room initially on November 23. It was brought in by EMS because of shortness of breath. He also had fever or chills. The patient had been sick for about 12 days when I saw him a couple days ago. The patient has a history of asthma, hyperlipidemia, hypertension, osteoarthritis. His primary care provider is Dr. Lane. Currently, the patient's on 3 L nasal cannula. He's not receiving any IV fluids. The patient feels like he is a bit better. I told him he needs to get out of bed, sit up, and when he is in bed, we right side down, left side down, supine, and prone. No new labs today. No new chest x-rays today. Progress note dated 11/27/2020. 60-year-old male, who I saw initially in consultation in the emergency department. Currently, the patient's on 3 L nasal cannula. He's not receiving any IV fluids. He was initially brought him because of increasing shortness of breath. He also had fever and chills. When I saw the patient, he been sick for about 12 before I even saw him. He does have a history of asthma, hyperlipidemia, hypertension, and osteoarthritis. Currently, the patient's feeling a bit better. When I saw him yesterday, I did tell him to move about in bed, right side down, left side down, supine, and prone. No new labs today. No new chest x-ray today. The patient's on usual medications including vitamin cocktail, Lovenox, and Decadron. We also place him on albuterol inhaler, and Symbicort. Objective - Vital Signs Vital signs: Vital Signs Temp 98.1 F 11/27/20 08:00 Pulse 72 11/27/20 08:00 Resp 20 11/27/20 08:00 BP 144/90 11/27/20 08:00 Pulse Ox 96 11/27/20 08:00 Intake & Output 11/26/20 11/27/20 11/27/20 18:59 06:59 18:59 Intake Total 480 200 Output Total 300 250 550 Balance 180 -250 -350 Intake: Oral 480 200 Output: Urine 300 250 550 Other: Voiding Method Toilet Toilet # Voids 2 - Exam No acute distress, oriented 3. Currently on 3 L. No audible wheezing, use of accessory muscles, or conversational dyspnea. Saturations are 96%. HEENT examination is grossly unremarkable. Mucous membranes are moist. No oral lesions. Neck supple. Full range of motion. No adenopathy thyromegaly or neck vein d istention. Cardiovascular examination reveals regular rhythm rate. S1-S2 normal. No S3 or S4. No discernible murmur noted. Heart rate 72 bpm. Lungs reveal bilateral rhonchi and crackles. No wheezes noted. Breath sounds equal bilaterally. Slight prolongation on forced maneuver. Abdomen soft bowel sounds are heard. No masses or tenderness. Extremities are intact. No cyanosis clubbing or edema. Skin is without rash or lesion. Neurologic examination is brief but nonfocal. - Labs CBC & Chem 7: 11/25/20 09:42 11/25/20 09:42 Labs: Abnormal Lab Results - Last 24 Hours (Table) 11/26/20 11/26/20 11/27/20 Range/Units 16:55 19:40 07:48 POC Glucose (mg/dL) 194 H 232 H 168 H (75-99) mg/dL 11/27/20 Range/Units 11:49 POC Glucose (mg/dL) 132 H (75-99) mg/dL Assessment and Plan Assessment: Acute hypoxemic respiratory failure, secondary to COVID 19 pneumonia. History of chronic bronchial asthma. Previous history of tobacco use. History of hyperlipidemia. History of hypertension. History of osteoarthritis. Plan: Plan dated 11/26/2020. The patient is on appropriate medications including Lovenox, Decadron, vitamin C, vitamin D3, and zinc. He was not a candidate for REM. The patient is also getting medications for his asthma including Symbicort and albuterol inhaler. I told the patient continues to get out of bed. He needs to sit up in the chair. This will improve his oxygenation his breathing. In addition, when in bed, right side down, left side down, supine, and prone positioning help. Additional recommendations and suggestions are forthcoming. Prognosis is guarded. We'll continue to follow. Plan dated 11/27/2020. The patient is on appropriate medications including Lovenox, Decadron, vitamin C, vitamin D3, and zinc. He was not a candidate for REM. In addition, he is on his usual asthma medications including Symbicort, an albuterol inhaler. Currently, his oxygenation seems to be improved, and clinically, he is feeling better. We will continue to follow and make recommendations were appropriate. Prognosis is guarded. He might be considered for discharge in the near future. Time with Patient: Less than 30
[2020-11-27 17:54] LABS: Glucose,Whole Blood 200 mg/dL (75-99)
[2020-11-27 19:57] LABS: Glucose,Whole Blood 145 mg/dL (75-99)
[2020-11-27] MEDS: MONTELUKAST 10 MG TAB PO SCH (21:04)
[2020-11-27] MEDS: ACETAMINOPHEN TAB 325 MG TAB PO PRN (21:04)
[2020-11-28 07:03] LABS: Glucose,Whole Blood 188 mg/dL (75-99)
[2020-11-28] MEDS: dexAMETHasone 2 MG TAB PO SCH (07:50)
[2020-11-28] MEDS: ASCORBIC ACID 500 MG TAB PO SCH (07:50)
[2020-11-28] MEDS: ZINC SULFATE 220 MG CAP PO SCH (07:50)
[2020-11-28] MEDS: PANTOPRAZOLE 40 MG TABLET PO SCH (07:50)
[2020-11-28] MEDS: lisinopriL 20 MG TAB PO SCH (07:50)
[2020-11-28] MEDS: ENOXAPARIN 40 MG/0.4 ML SYRINGE SQ SCH (07:51)
[2020-11-28] MEDS: CHOLECALCIFEROL 25 MCG (1000 IU) TABLET PO SCH (07:51)
[2020-11-28] MEDS: SYMBICORT 160-4.5 MCG INHALER INHALATION SCH (08:00)
[2020-11-28] MEDS: ALBUTEROL HFA INHALER INHALATION PRN ×2 (08:00→11:45)
[2020-11-28] MEDS: INSULIN ASPART (NovoLOG) 100 UNIT/ML VIAL SQ SCH (08:13)
[2020-11-28 08:45] VITALS: BP 146/85; PULSE 74; TEMP 97.6
--- NOTE | 2020-11-28 09:33 | P.DS ---
Providers Date of admission: 11/23/20 22:51 Expected date of discharge: 11/28/20 Attending physician: Terell So Consults: 11/23/20 22:53 Consult Physician Routine Consulting Provider: Dhiraj Jameson Consult Reason/Comments: covid Do you want consulting provider notified?: Yes Primary care physician: [facility] Course: HISTORY OF PRESENT ILLNESS This is a 60-year-old male one of Dr. Lane and Dr. PATIENCE Griffith with a previous medical history significant for mild persistent asthma, hypertension and hypertensive cardio vascular disease, hyperlipidemia, psoriatic arthritis, morbid obesity hypoventilation syndrome, and diagnosed to have sleep apnea. Patient gives history of shortness of breath along with fever, chills and rigors, complete body aches. He has sputum production. He complains of tightness in his chest. He denies any lower extremity edema. She has had 2 ER visits on November 19 and November 21. Patient did receive Bamlanivimab on November 21 was discharged home. Patient returned due to increasing shortness of breath. Patient came into [facility] emergency center for evaluation. Temperature 102.8, heart rate 1 W, can't speak, respiratory rate 24, blood pressure initially 148/102, pulse ox 92% with oxygen.24BC 5.4, hemoglobin 14.6, platelet count 220. INR 0.9. D-dimer 0.57. Sodium 133, potassium 5.2, chloride 102, CO2 23, BUN 19 and creatinine 0.7. Lactic acid 2.5 and repeat of 1.1. LDH 782. C-reactive protein 151. Pro-calcitonin 0.25. Chest x-ray reveals bilateral infiltrates worsening from previous study. CT angiogram of the chest was negative for pulmonary embolism and showed scattered groundglass infiltrates. Patient admitted to the [facility] floor and pulmonary consult in place. 11/25: Patient states that he is having shortness of breath with exertion. Overall shortness of breath has improved. He is on albuterol inhaler and Symbicort inhaler. He is currently on 3 L nasal cannula with pulse ox of 96%. Patient has been afebrile, heart rate 83, blood pressure 129/76. Repeat blood work reveals WBC 12.7. BUN 21 creatinine 0.81. Electrolytes are normal. Blood sugars have been running between 120 and 164. LDH is 873, C-reactive protein 68.5. Patient has been seen by pulmonary medicine with recommendations to provide Decadron versus Solu-Medrol and start Singulair and Symbicort. 11/26: Patient is doing slightly better still required quite with oxygen at this point, was seen and evaluated by pulmonary continue current management his chest x-ray still showing quite bit infiltrate pulse ox is running in the mid 90 on 3- 5 L of O2. Patient will be ready probably for discharge on Saturday. 11/27: Patient had a rough night last night still having significant hypoxia and shortness of breath he is on 3 L for 2 to keep his pulse ox above 90 percentile, still having significant cough low-grade temperature. His lab is pending spawning patient is having worsening symptom with minimum exertion, continued see pulmonary if she is doing well hopefully might be able to get discharged tomorrow. 11/28: Patient has been afebrile. Heart rate 74, blood pressure 146/85, pulse ox running between 91 and 95% on 3 L nasal cannula. Home oxygen assessment will be done. Blood sugars are running 145-200. Home oxygen will be set up by casey saw operator. We'll also send patient home on dexamethasone. Patient is breathing status is stable. Patient will be discharged home today in stable condition. ASSESSMENT AND PLAN 1. Acute hypoxic respiratory failure secondary to COVID 19 pneumonia. 2. Sepsis secondary to Covid 19 pneumonia. 3. Lactic acidosis secondary to Covid 19 4. Hypertension. 5. Hyperlipidemia. 6. Type 2 diabetes, uncontrolled secondary to hyperglycemia 7. Obstructive sleep apnea. 8. Debility 9. Mild persistent asthma with exacerbation. 10. Gastroesophageal reflux disease. DISCHARGE PLAN Home. Impression and plan of care have been directed as dictated by the signing physician. Kiley Diaz nurse practitioner acting as scribe for signing physician. Patient Condition at Discharge: Stable Plan - Discharge Summary Discharge Rx Participant: Yes New Discharge Prescriptions: New Ascorbic Acid [Vitamin C] 1,000 mg PO DAILY tab Dexamethasone 6 mg PO DAILY #10 tablet Zinc Sulfate [Orazinc] 220 mg PO DAILY cap Cholecalciferol [Vitamin D3 (25 Mcg = 1000 Iu)] 100 mcg PO DAILY tablet Continue Montelukast Sodium [Singulair] 10 mg PO HS Albuterol Nebulized [Ventolin Nebulized] 2.5 mg INHALATION RT-Q6H PRN PRN Reason: Shortness Of Breath lisinopriL [Prinivil] 20 mg PO DAILY Fluticasone Propionate [Flovent Hfa 220 mcg] 2 puff INHALATION RT-DAILY Ondansetron [Zofran ODT] 4 mg PO Q8HR PRN #20 tab PRN Reason: Nausea Ibuprofen [Motrin] 600 mg PO Q8HR PRN PRN Reason: Pain Albuterol Sulfate [Ventolin HFA] 2 puff INHALATION RT-Q6H PRN PRN Reason: Shortness Of Breath guaiFENesin-DM 600/30MG [Mucinex Dm] 2 tab PO Q12HR PRN PRN Reason: Cough Discontinued predniSONE 50 mg PO DAILY #5 tablet Discharge Medication List Montelukast Sodium [Singulair] 10 mg PO HS 05/18/18 [History] Albuterol Nebulized [Ventolin Nebulized] 2.5 mg INHALATION RT-Q6H PRN 10/15/19 [History] lisinopriL [Prinivil] 20 mg PO DAILY 03/09/20 [History] Fluticasone Propionate [Flovent Hfa 220 mcg] 2 puff INHALATION RT-DAILY 06/16/20 [History] Ondansetron [Zofran ODT] 4 mg PO Q8HR PRN #20 tab 11/21/20 [Rx] Albuterol Sulfate [Ventolin HFA] 2 puff INHALATION RT-Q6H PRN 11/23/20 [History] Ibuprofen [Motrin] 600 mg PO Q8HR PRN 11/23/20 [History] guaiFENesin-DM 600/30MG [Mucinex Dm] 2 tab PO Q12HR PRN 11/23/20 [History] Ascorbic Acid [Vitamin C] 1,000 mg PO DAILY tab 11/28/20 [Rx] Cholecalciferol [Vitamin D3 (25 Mcg = 1000 Iu)] 100 mcg PO DAILY tablet 11/28/20 [Rx] Dexamethasone 6 mg PO DAILY #10 tablet 11/28/20 [Rx] Zinc Sulfate [Orazinc] 220 mg PO DAILY cap 11/28/20 [Rx] Follow up Appointment(s)/Referral(s): [facility] [NON-STAFF] - As Needed (Supplier of home oxygen) Roger Lane MD [Primary Care Provider] - 04/08/21 2:15 pm (Appointment made for video appointment with Dr Wild . Office will text PT a link . ) Patient Instructions/Handouts: Coronavirus Disease 2019 (COVID-19), Dyspnea (GEN)
[2020-11-28 10:40] VITALS: RESP 20
[2020-11-28 11:11] LABS: Glucose,Whole Blood 152 mg/dL (75-99)
--- NOTE | 2020-11-28 13:36 | P.PN ---
Subjective Progress Note Date: 11/28/20 Principal diagnosis: Acute hypoxic respiratory failure secondary to acute covid 19 pneumonia This is a 60-year-old male, who was seen in the emergency room on November 23. He was brought in by EMS, because of shortness of breath. In addition, he complained of fever, and chills. He apparently tested positive for COVID 19 last Saturday. He's been sick for about 12 days. He was on oxygen 2 L/m, and getting saline at 75 mL an hour. The patient has a history of chronic bronchial asthma, hyperlipidemia, hypertension, and osteoarthritis. He also suffers from type 2 diabetes mellitus, and degenerative joint disease in his right knee. The patient is a former smoker. His primary care physician is Dr. Lane. Currently, the patient complains of when these sitting still, he's fine but when he moves about or does any activity, he gets very short of breath. He denies any chest pain or chest discomfort. He denies any GI complaints or rash. White count 5.4, hemoglobin 14.6, hematocrit 42.8, and platelet count 220,000. PT 10.2, INR 0.9, PTT 24.1, and d-dimer 0.57. Sodium 133, potassium 5.2, chlorides 102, CO2 23, anion gap 8, BUN 19, creatinine 0.7. Initial lactic acid was 2. 5 repeat was 1.1 LDH is 782 C-reactive protein is 151.4, and pro-calcitonin level was 0.24. Chest x-ray shows some bilateral infiltrates, worse than a chest x- ray that was done on the . CT angiogram was negative for pulmonary embolism, and showed scattered groundglass infiltrates. The patient is seen today 11/25/2020 in follow-up in the regular medical floor. He is currently sitting up in bed. Awake and alert in no acute distress. Only doing about the same today. Still with cough and congestion. Still short of breath with minimal exertion. White count 12.7. Hemoglobin 14.7. Sodium 139. Potassium 4.3. Creatinine 0.81. LDH 873. C-reactive protein 68.5. He remains on Lovenox, Decadron, vitamin supplements. Progress note dated 11/26/2020. 60-year-old male, who I saw initially in consultation in the emergency department. The patient was seen in the emergency room initially on November 23. It was brought in by EMS because of shortness of breath. He also had fever or chills. The patient had been sick for about 12 days when I saw him a couple days ago. The patient has a history of asthma, hyperlipidemia, hypertension, osteoarthritis. His primary care provider is Dr. Lane. Currently, the patient's on 3 L nasal cannula. He's not receiving any IV fluids. The patient feels like he is a bit better. I told him he needs to get out of bed, sit up, and when he is in bed, we right side down, left side down, supine, and prone. No new labs today. No new chest x-rays today. Progress note dated 11/27/2020. 60-year-old male, who I saw initially in consultation in the emergency department. Currently, the patient's on 3 L nasal cannula. He's not receiving any IV fluids. He was initially brought him because of increasing shortness of breath. He also had fever and chills. When I saw the patient, he been sick for about 12 before I even saw him. He does have a history of asthma, hyperlipidemia, hypertension, and osteoarthritis. Currently, the patient's feeling a bit better. When I saw him yesterday, I did tell him to move about in bed, right side down, left side down, supine, and prone. No new labs today. No new chest x-ray today. The patient's on usual medications including vitamin cocktail, Lovenox, and Decadron. We also place him on albuterol inhaler, and Symbicort. Reevaluated today on 11/28/2020, patient is doing quite well today. He is on room air, O2 saturation 91%. Patient does have slight shortness of breath on exertion, and he will be evaluated for possible home oxygen with a 6 minute walk today. Overall the patient is doing great, and his discharge summary has been dictated, I will clear the patient for discharge today. Again the patient may require home O2 and he is being evaluated for this as I dictate. Objective - Vital Signs Vital signs: Vital Signs Temp 97.6 F 11/28/20 08:00 Pulse 74 11/28/20 08:00 Resp 20 11/28/20 10:39 BP 146/85 11/28/20 08:00 Pulse Ox 86 L 11/28/20 10:39 Intake & Output 11/27/20 11/28/20 11/28/20 18:59 06:59 18:59 Intake Total 200 Output Total 850 Balance -650 Intake: Oral 200 Output: Urine 850 Other: Voiding Method Toilet # Voids 2 1 - Exam Physical Exam: Revealed a 60-year-old white male in no distress. On 2 L nasal cannula Head: Atraumatic, normocephalic. HEENT:[Neck is supple.] [No neck masses.] [No thyromegaly.] [No JVD.] Chest: [Normal fine crackles at bases no rhonchi and no wheezes. Cardiac Exam: [Normal S1 and S2, no S3 gallop, no murmur.] Abdomen: [Soft, nontender, no megaly, no rebound, no guarding, normal bowel sounds.] Extremities: [No clubbing, no edema, no cyanosis.] Neurological Exam: [No focal neurologic deficit.] Alert and oriented 3 no gross focal deficits. Psychiatric: Normal mood affect and normal mental status examination. HEENT: No rashes. - Labs CBC & Chem 7: 11/25/20 09:42 11/25/20 09:42 Labs: Abnormal Lab Results - Last 24 Hours (Table) 11/27/20 11/27/20 11/28/20 Range/Units 17:49 19:56 07:01 POC Glucose (mg/dL) 200 H 145 H 188 H (75-99) mg/dL 11/28/20 Range/Units 11:10 POC Glucose (mg/dL) 152 H (75-99) mg/dL Assessment and Plan Assessment: Impression: Acute hypoxic respiratory failure secondary to Covid 19 pneumonia History of chronic mild intermittent asthma Benign essential hypertension Degenerative joint disease Recommendation: Continue present treatment plan. Continue the covid 19 cocktail. Resume and continue his asthma medications including Symbicort and albuterol. Patient likely qualifies for home oxygen and that should be arranged for. Agree with discharge planning today and follow-up on outpatient basis. Time with Patient: Less than 30
== END 2020-11-28 13:52 | disposition home or self-care (01) | DRG 871 ==
LOC: EC 22:41 → 4SSUR 22:51 → 6NMEDSUR 11-24 23:02
PROVIDERS: ADMIT Internal Medicine Geriatric Medicine; ATTEND Internal Medicine Geriatric Medicine
DX: A41.89 Other specified sepsis (principal); U07.1 COVID-19; J96.01 Acute respiratory failure with hypoxia; J12.82 Pneumonia due to coronavirus disease 2019; J45.31 Mild persistent asthma with (acute) exacerbation; E87.2 Acidosis; Z87.891 Personal history of nicotine dependence; E78.5 Hyperlipidemia, unspecified; I10 Essential (primary) hypertension; M19.90 Unspecified osteoarthritis, unspecified site; E11.9 Type 2 diabetes mellitus without complications; M17.11 Unilateral primary osteoarthritis, right knee; Z79.84 Long term (current) use of oral hypoglycemic drugs; Z79.899 Other long term (current) drug therapy; Z79.51 Long term (current) use of inhaled steroids; L40.50 Arthropathic psoriasis, unspecified; Z80.41 Family history of malignant neoplasm of ovary; Z68.35 Body mass index [BMI] 35.0-35.9, adult; K21.9 Gastro-esophageal reflux disease without esophagitis; E11.65 Type 2 diabetes mellitus with hyperglycemia; E66.9 Obesity, unspecified; G47.33 Obstructive sleep apnea (adult) (pediatric)
CPT/HCPCS: 71045; 71275; 80053; 82728; 83605; 83615; 83735; 84145; 85025; 85027; 85379; 85610; 85730; 86140; 93005; 94640; 94760; 99291

== ENCOUNTER 2021-03-02 07:39 | Observation (INO) | payer BC ==
[2021-03-02] MEDS ORDERED: ASPIRIN 81 MG PO STA (07:58)
[2021-03-02] MEDS ORDERED: NITROGLYCERIN OINT 1 INCH/GM PACKET TOPICAL STA (07:58)
--- NOTE | 2021-03-02 08:06 | ED ---
General Adult HPI - General Chief complaint: Chest Pain Stated complaint: Chest pain Time Seen by Provider: 03/02/21 07:40 Source: patient, RN notes reviewed, old records reviewed Mode of arrival: wheelchair Limitations: no limitations - History of Present Illness Initial comments: This is a 60-year-old male who presents emergency Department with a past medical history significant for borderline diabetes and high blood pressure. Patient denies smoking and denies high cholesterol. Patient states he started having some right-sided chest discomfort for about an hour this morning. Patient states it didn't radiate anywhere there was no shortness of breath worsened normal. Patient denied any diaphoretic episodes or nausea. Patient states on the left side he also had a flutter sensation in his ears been ongoing for a few days. Patient denies any recent fever chills or cough. Patient denies any abdominal pain patient denies any nausea vomiting or diarrhea. Patient denies any back pain. Patient denies any calf tenderness and states his feet are little bit more swollen than normal. - Related Data Home Medications Medication Instructions Recorded Confirmed Montelukast Sodium [Singulair] 10 mg PO DAILY 05/18/18 03/02/21 Albuterol Nebulized [Ventolin 2.5 mg INHALATION RT-Q6H 10/15/19 03/02/21 Nebulized] lisinopriL [Prinivil] 20 mg PO DAILY 03/09/20 03/02/21 Fluticasone Propionate [Flovent 2 puff INHALATION RT-BID 06/16/20 03/02/21 Hfa 220 mcg] 6 Pill Vitamin Pack 1 pack PO DAILY@1800 03/02/21 03/02/21 Allergies Allergy/AdvReac Type Severity Reaction Status Date / Time [id number] Reductase AdvReac MUSCLE PAIN Verified 03/02/21 09:42 Inhibitor Review of Systems ROS Statement: Those systems with pertinent positive or pertinent negative responses have been documented in the HPI. ROS Other: All systems not noted in ROS Statement are negative. Past Medical History Past Medical History: Asthma, Hyperlipidemia, Hypertension, Osteoarthritis (OA) Additional Past Medical History / Comment(s): Persistent asthma, NIDDM II- arthritis R knee, History of Any Multi-Drug Resistant Organisms: None Reported Past Surgical History: Hernia Repair Additional Past Surgical History / Comment(s): Umbilical hernia repair Past Anesthesia/Blood Transfusion Reactions: Motion Sickness Past Psychological History: No Psychological Hx Reported Smoking Status: Former smoker Past Alcohol Use History: None Reported Past Drug Use History: None Reported - Past Family History Mother History Unknown: Yes Family Medical History: Cancer Additional Family Medical History / Comment(s): Mother of ovarian cancer at the age of 78yrs. Father History Unknown: Yes Family Medical History: GI Bleed Additional Family Medical History / Comment(s): Father around age 50 from a bleeding ulcer. Brother(s) Family Medical History: No Reported History Additional Family Medical History / Comment(s): The patient has 2 brothers and one from pneumonia at age 59, 1 is alive with history of bariatric surgery. Sister(s) Family Medical History: No Reported History Additional Family Medical History / Comment(s): Patient has 2 sisters and one has history of gallbladder disease. Daughter(s) Family Medical History: Unable to Obtain Additional Family Medical History / Comment(s): Patient has one daughter with no major medical problems. Son(s) Additional Family Medical History / Comment(s): Patient has 2 sons and one has hypertension. General Exam - General Exam Comments Initial Comments: GENERAL: Patient is well-developed and well-nourished. Patient is nontoxic and well- hydrated and is in mild distress. ENT: Neck is soft and supple. No significant lymphadenopathy is noted. Oropharynx is clear. Moist mucous membranes. Neck has full range of motion without isrrael citing any pain. EYES: The sclera were anicteric and conjunctiva were pink and moist. Extraocular movements were intact and pupils were equal round and reactive to light. Eyelids were unremarkable. PULMONARY: Unlabored respirations. Good breath sounds bilaterally. No audible rales rhonchi or wheezing was noted. CARDIOVASCULAR: There is a regular rate and rhythm without any murmurs gallops or rubs. Chest pain is not reproducible ABDOMEN: Soft and nontender with normal bowel sounds. SKIN: Skin is clear with no lesions or rashes and otherwise unremarkable. NEUROLOGIC: Patient is alert and oriented x3. Cranial nerves II through XII are grossly intact. Motor and sensory are also intact. Normal speech, volume and content. Symmetrical smile. MUSCULOSKELETAL: Normal extremities with adequate strength and full range of motion. Scant foot edema. LYMPHATICS: No significant lymphadenopathy is noted PSYCHIATRIC: Normal psychiatric evaluation. Limitations: no limitations Course Vital Signs 03/02/21 03/02/21 03/02/21 07:41 08:00 09:00 Temperature 98.0 F Pulse Rate 103 H 93 105 H Pulse Rate [ Right] Respiratory 16 20 20 Rate Blood Pressure 163/86 136/81 122/75 Blood Pressure [Right Arm] O2 Sat by Pulse 98 99 97 Oximetry 03/02/21 03/02/21 03/02/21 11:30 12:18 12:38 Temperature 97.7 F 98.0 F Pulse Rate 90 92 Pulse Rate [ 87 Right] Respiratory 18 18 14 Rate Blood Pressure 112/71 133/80 Blood Pressure 144/90 [Right Arm] O2 Sat by Pulse 96 97 98 Oximetry Medical Decision Making - Medical Decision Making EKG shows normal sinus rhythm at 92 bpm CA interval 266 dresses under QT intervals 358 QTC is 445. Patient's EKG shows no ST segment elevation or depr ession. Chest x-ray shows no acute abnormality. I will back into the room patient was not having any more right-sided chest pain and it completely subsided. Patient states he does continue to get some fluttering. I spoke with Dr. Song he agreed to admit the patient admitted the patient I wrote admitting orders. Repeat EKG patient has a sinus rhythm at 70 bpm with occasional PAC ER was 172 QRS is under QT interval 380 QTC is 433. Patient's EKG shows no ST segment elevation or depression. - Lab Data Result diagrams: 03/02/21 08:17 03/02/21 08:17 Lab Results 03/02/21 03/02/21 03/02/21 Range/Units 08:17 08:17 08:17 WBC 8.7 (3.8-10.6) k/uL RBC 4.84 (4.30-5.90) m/uL Hgb 15.5 (13.0-17.5) gm/dL Hct 44.7 (39.0-53.0) % MCV 92.2 (80.0-100.0) fL MCH 32.0 (25.0-35.0) pg MCHC 34.7 (31.0-37.0) g/dL RDW 13.7 (11.5-15.5) % Plt Count 324 (150-450) k/uL MPV 6.6 Neutrophils % 55 % Lymphocytes % 29 % Monocytes % 9 % Eosinophils % 5 % Basophils % 1 % Neutrophils # 4.8 (1.3-7.7) k/uL Lymphocytes # 2.5 (1.0-4.8) k/uL Monocytes # 0.8 (0-1.0) k/uL Eosinophils # 0.4 (0-0.7) k/uL Basophils # 0.1 (0-0.2) k/uL PT 9.5 (9.0-12.0) sec INR 0.9 (<1.2) APTT 22.5 (22.0-30.0) sec Sodium 140 (137-145) mmol/L Potassium 4.1 (3.5-5.1) mmol/L Chloride 106 (98-107) mmol/L Carbon Dioxide 26 (22-30) mmol/L Anion Gap 8 mmol/L BUN 18 (9-20) mg/dL Creatinine 0.74 (0.66-1.25) mg/dL Est GFR (CKD-EPI)AfAm >90 (>60 ml/min/1.73 sqM) Est GFR (CKD-EPI)NonAf >90 (>60 ml/min/1.73 sqM) Glucose 119 H (74-99) mg/dL Calcium 9.6 (8.4-10.2) mg/dL Magnesium 1.9 (1.6-2.3) mg/dL Total Bilirubin 0.6 (0.2-1.3) mg/dL AST 23 (17-59) U/L ALT 16 (4-49) U/L Alkaline Phosphatase 57 (38-126) U/L Troponin I (0.000-0.034) ng/mL NT-Pro-B Natriuret Pep pg/mL Total Protein 6.9 (6.3-8.2) g/dL Albumin 4.3 (3.5-5.0) g/dL TSH (0.465-4.680) mIU/L Free T4 (0.78-2.19) ng/dL 03/02/21 03/02/21 03/02/21 Range/Units 08:17 08:17 08:17 WBC (3.8-10.6) k/uL RBC (4.30-5.90) m/uL Hgb (13.0-17.5) gm/dL Hct (39.0-53.0) % MCV (80.0-100.0) fL MCH (25.0-35.0) pg MCHC (31.0-37.0) g/dL RDW (11.5-15.5) % Plt Count (150-450) k/uL MPV Neutrophils % % Lymphocytes % % Monocytes % % Eosinophils % % Basophils % % Neutrophils # (1.3-7.7) k/uL Lymphocytes # (1.0-4.8) k/uL Monocytes # (0-1.0) k/uL Eosinophils # (0-0.7) k/uL Basophils # (0-0.2) k/uL PT (9.0-12.0) sec INR (<1.2) APTT (22.0-30.0) sec Sodium (137-145) mmol/L Potassium (3.5-5.1) mmol/L Chloride (98-107) mmol/L Carbon Dioxide (22-30) mmol/L Anion Gap mmol/L BUN (9-20) mg/dL Creatinine (0.66-1.25) mg/dL Est GFR (CKD-EPI)AfAm (>60 ml/min/1.73 sqM) Est GFR (CKD-EPI)NonAf (>60 ml/min/1.73 sqM) Glucose (74-99) mg/dL Calcium (8.4-10.2) mg/dL Magnesium (1.6-2.3) mg/dL Total Bilirubin (0.2-1.3) mg/dL AST (17-59) U/L ALT (4-49) U/L Alkaline Phosphatase (38-126) U/L Troponin I <0.012 (0.000-0.034) ng/mL NT-Pro-B Natriuret Pep 24 pg/mL Total Protein (6.3-8.2) g/dL Albumin (3.5-5.0) g/dL TSH 0.020 L (0.465-4.680) mIU/L Free T4 1.06 (0.78-2.19) ng/dL Disposition Clinical Impression: Chest pain, Palpitations Disposition: ADMITTED IP TO THIS [facility] Time of Disposition: 09:31
[2021-03-02 08:30] LABS: Basophils # (A) 0.1 k/uL (0-0.2); Basophils % (A) 1 %; Eosinophils # (A) 0.4 k/uL (0-0.7); Eosinophils % (A) 5 %; HCT 44.7 % (39.0-53.0); HGB 15.5 gm/dL (13.0-17.5); Lymphocytes # (A) 2.5 k/uL (1.0-4.8); Lymphocytes % (A) 29 %; MCHC 34.7 g/dL (31.0-37.0); MCV 92.2 fL (80.0-100.0); Mean Platelet Volume 6.6; Monocytes # (A) 0.8 k/uL (0-1.0); Monocytes % (A) 9 %; Neutrophils # (A) 4.8 k/uL (1.3-7.7); Neutrophils % (A) 55 %; Platelet Count 324 k/uL (150-450); RBC 4.84 m/uL (4.30-5.90); RDW 13.7 % (11.5-15.5); WBC 8.7 k/uL (3.8-10.6)
--- NOTE | 2021-03-02 08:34 | XR ---
EXAMINATION TYPE: XR chest 2V DATE OF EXAM: 03/02/2021 COMPARISON: 11/23/2020 HISTORY: 60-year-old male with shortness of breath and chest pain TECHNIQUE: PA and lateral views FINDINGS: Heart borderline in size. Aorta within normal limits. Increased interstitial changes especially in th e perihilar and lower lung regions. No taylor consolidation or pleural effusion. IMPRESSION: Increased interstitial changes in the perihilar and lower lung regions. Not as pronounced as seen on 11/23/2020. Further clinical correlation recommended. Consider bronchitis, asthma, or atypical pneumon ias. Fluid overload can be excluded on a clinical basis.
[2021-03-02 08:48] LABS: ALT 16 U/L (4-49); AST 23 U/L (17-59); African American GFR (CKD) >90 (>60 ml/min/1.73 sqM); Albumin 4.3 g/dL (3.5-5.0); Alkaline Phosphatase 57 U/L (38-126); Anion Gap 8 mmol/L; Blood Urea Nitrogen 18 mg/dL (9-20); Calcium 9.6 mg/dL (8.4-10.2); Carbon Dioxide 26 mmol/L (22-30); Chloride 106 mmol/L (98-107); Glucose 119 mg/dL (74-99); Magnesium 1.9 mg/dL (1.6-2.3); Non-African American GFR(CKD) >90 (>60 ml/min/1.73 sqM); Potassium 4.1 mmol/L (3.5-5.1); Sodium 140 mmol/L (137-145); Total Bilirubin 0.6 mg/dL (0.2-1.3); Total Protein 6.9 g/dL (6.3-8.2)
[2021-03-02 08:52] LABS: INR 0.9 (<1.2); Partial Thromboplastin Time 22.5 sec (22.0-30.0); Prothrombin Time 9.5 sec (9.0-12.0)
[2021-03-02] MEDS ORDERED: NITROGLYCERIN SL TABS 0.4 MG TAB SUBLINGUAL PRN (09:31)
--- NOTE | 2021-03-02 12:00 | ECHOF ---
Referral Reason: MEASUREMENTS -------- HEIGHT: 175.3 cm WEIGHT: 149.7 kg BP: 122/75 IVSd: 1.8 cm (0.6 - 1.1) LVIDd: 3.6 cm (3.9 - 5.3) LVPWd: 1.6 cm (0.6 - 1.1) IVSs: 2.1 cm LVIDs: 1.6 cm LVPWs: 2.2 cm Ao Diam: 3.7 cm (2.0 - 3.7) AV Cusp: 1.7 cm (1.5 - 2.6) LA Diam: 3.6 cm (2.7 - 3.8) MV EXCURSION: 19.783 mm (> 18.000) MV EF SLOPE: 99 mm/s (70 - 150) EPSS: 0.5 cm MV E Rian: 0.71 m/s MV DecT: 222 ms MV A Rian: 0.64 m/s MV E/A Ratio: 1.11 RAP: 5.00 mmHg RVSP: 11.86 mmHg FINDINGS -------- This was a technically difficult study with suboptimal views. The left ventricular size is normal. There is moderate concentric left ventricular hypertrophy. O verall left ventricular systolic function is normal with, an EF between 55 - 60 %. The right ventricle is normal in size. The left atrial size is normal. The right atrial size is normal. Lumason used The aortic valve was not well visualized. The mitral valve is normal. There is trace mitral regurgitation. The tricuspid valve appears structurally normal. Trace tricuspid regurgitation present. Right cassi tricular systolic pressure is normal at < 35 mmHg. The pulmonic valve was not well visualized. The aortic root size is normal. IVC Not well visulized. There is no pericardial effusion. CONCLUSIONS -------- 1. The left ventricular size is normal. 2. There is moderate concentric left ventricular hypertrophy. 3. Overall left ventricular systolic function is normal with, an EF between 55 - 60 %. 4. There is trace mitral regurgitation. 5. Trace tricuspid regurgitation present. 6. There is no pericardial effusion. ASSEMBLER PIANO: Tash Lorenz, [facility]
[2021-03-02] MEDS: NITROGLYCERIN OINT 1 INCH/GM PACKET TOPICAL SCH ×3 (12:15→23:56)
[2021-03-02 12:19] LABS: T4, Free (Free Thyroxine) 1.06 ng/dL (0.78-2.19)
--- NOTE | 2021-03-02 12:23 | P.HPIM ---
History of Present Illness H&P Date: 03/02/21 Chief Complaint: Palpitations, chest pain HISTORY OF PRESENT ILLNESS This is a 60-year-old male one of Dr. Zamora and Dr. PATIENCE Griffith with a previous medical history significant for mild persistent asthma, hypertension and hypertensive cardiovascular disease, hyperlipidemia, psoriatic arthritis, morbid obesity hypoventilation syndrome, and diagnosed to have sleep apnea. History of Covid October/2020 patient complains of a flutter feeling in his chest like his heart is irregular. He states it feels like it is hesitating. He denies tachycardia. He complains of some right-sided chest pain that lasted for about half hour but this is resolved on its own. He has not taken any medications to improve his symptoms. He did have a stress test the patient self reports as normal a year ago. He does not drink any coffee. He states he does drink some pop. No alcohol use. No abdominal pain no nausea vomiting or diarrhea. Patient came into [facility] emergency center for evaluation. Temperature 102.8, heart rate 1 W, can't speak, respiratory rate 24, blood pressure initially 148/102, pulse ox 92% with oxygen.24BC 5.4, hemoglobin 14.6, platelet count 220. INR 0.9. D-dimer 0.57. Sodium 133, potassium 5.2, chlori de 102, CO2 23, BUN 19 and creatinine 0.7. Lactic acid 2.5 and repeat of 1.1. LDH 782. C-reactive protein 151. Pro-calcitonin 0.25. Chest x-ray reveals bilateral infiltrates worsening from previous study. CT angiogram of the chest was negative for pulmonary embolism and showed scattered groundglass infiltrates. Patient admitted to the [facility] floor and pulmonary consult in place. REVIEW OF SYSTEMS Constitutional: Reports fever, Reports chills, no night sweats. No weight change. Reports weakness, Reports fatigue. No daytime sleepiness. EENT: No headache. No blurred vision or double vision, no loss of vision. No loss of Hearing, no ringing in the ears, no dizziness. No nasal drainage or congestion. No epistaxis. No sore throat. Lungs: Denies shortness of breath, Reports cough, Reports sputum production. No wheezing. Cardiovascular: Reports chest pain, no lower extremity edema. Reports palpitations. No paroxysmal nocturnal dyspnea. No orthopnea. No lightheadedness or dizziness. No syncopal episodes. Abdominal: No abdominal pain. No nausea, vomiting. No diarrhea. No constipation. No bloody or tarry stools.. No loss of appetite. Genitourinary: No dysuria, increased frequency, urgency. No urinary retention. Musculoskeletal: Reports myalgias. Reports muscle weakness, no gait dysfunction, no frequent falls. No back pain. No neck pain. Integumentary: No wounds, no lesions. No rash or pruritus. Neurologic: No aphasia. No facial droop. No change in mentation. No head injury. No headache. No paralysis. No paresthesia. Psychiatric: No depression. No anxiety. Endocrine: No abnormal blood sugars. No weight change. SOCIAL HISTORY Patient quit smoking about 38 years ago, after 4 years of use, no alcohol intake, has nebulizer no oxygen no CPAP machine, patient's lives with a friend. FAMILY HISTORY Mother of ovarian cancer at the age of 78yrs. Father around age 50 from a bleeding ulcer. The patient has 2 brothers and one from pneumonia at age 59, 1 is alive with history of bariatric surgery. Patient has 2 sisters and one has history of gallbladder disease. Patient has one daughter with no major medical problems. Patient has 2 sons and one has hypertension. PHYSICAL EXAMINATION Gen: This is an obese 60-year-old male. Patient is resting on the ER stretcher and appears to be comfortable at rest. HEENT: Head is atraumatic, normocephalic. Pupils equal, round. Sclerae is anicteric. NECK: Supple. No JVD. No lymphadenopathy. No thyromegaly. LUNGS: Scattered rhonchi and crackles bilaterally. No intercostal retractions. HEART: Regular rate and rhythm. No murmur. ABDOMEN: Soft. Bowel sounds are present. No masses. No tenderness. EXTREMITIES: No pedal edema. No calf tenderness. Dorsalis pedis +2 bilaterally. NEUROLOGICAL: Patient is awake, alert and oriented x3. Cranial nerves 2 through 12 are grossly intact. ASSESSMENT AND PLAN 1. Palpitations. Consult with cardiology, continue cardiac monitoring, obtain TSH and free T4. 2. Right-sided chest pain, most likely will musculoskeletal. Consult with cardiology and repeat troponins, echocardiogram. 3. Hypertension. Continue lisinopril 20 mg daily. 4. Hyperlipidemia. Patient unable to tolerate statin. 5. Morbid obesity with BMI of 48. 6. Obstructive sleep apnea, no CPAP. 7. Generalized osteoarthritis. 8. Mild persistent asthma without exacerbation. Continue albuterol nebulizer every 6 hours, Singulair 10 mg daily. 9. GI prophylaxis. Protonix. 10. DVT prophylaxis. Lovenox subcu. Patient placed on the Observation unit. DISCHARGE PLAN Home. Impression and plan of care have been directed as dictated by the signing physician. Kiley Diaz nurse practitioner acting as scribe for signing physician. Past Medical History Past Medical History: Asthma, Hyperlipidemia, Hypertension, Osteoarthritis (OA) Additional Past Medical History / Comment(s): Persistent asthma, NIDDM II- arthritis R knee, History of Any Multi-Drug Resistant Organisms: None Reported Past Surgical History: Hernia Repair Additional Past Surgical History / Comment(s): Umbilical hernia repair Past Anesthesia/Blood Transfusion Reactions: Motion Sickness Past Psychological History: No Psychological Hx Reported Smoking Status: Former smoker Past Alcohol Use History: None Reported Past Drug Use History: None Reported - Past Family History Mother History Unknown: Yes Family Medical History: Cancer Additional Family Medical History / Comment(s): Mother of ovarian cancer at the age of 78yrs. Father History Unknown: Yes Family Medical History: GI Bleed Additional Family Medical History / Comment(s): Father around age 50 from a bleeding ulcer. Brother(s) Family Medical History: No Reported History Additional Family Medical History / Comment(s): The patient has 2 brothers and one from pneumonia at age 59, 1 is alive with history of bariatric surgery. Sister(s) Family Medical History: No Reported History Additional Family Medical History / Comment(s): Patient has 2 sisters and one has history of gallbladder disease. Daughter(s) Family Medical History: Unable to Obtain Additional Family Medical History / Comment(s): Patient has one daughter with no major medical problems. Son(s) Additional Family Medical History / Comment(s): Patient has 2 sons and one has hypertension. Medications and Allergies Home Medications Medication Instructions Recorded Confirmed Type Montelukast Sodium [Singulair] 10 mg PO DAILY 05/18/18 03/02/21 History Albuterol Nebulized [Ventolin 2.5 mg INHALATION RT-Q6H 10/15/19 03/02/21 History Nebulized] lisinopriL [Prinivil] 20 mg PO DAILY 03/09/20 03/02/21 History Fluticasone Propionate [Flovent 2 puff INHALATION RT-BID 06/16/20 03/02/21 History Hfa 220 mcg] 6 Pill Vitamin Pack 1 pack PO DAILY@1800 03/02/21 03/02/21 History Allergies Allergy/AdvReac Type Severity Reaction Status Date / Time Pczxpyj-Erj-Yyq Reductase AdvReac MUSCLE PAIN Verified 03/02/21 09:42 Inhibitor Physical Exam Vitals: Vital Signs Temp Pulse Resp BP Pulse Ox 03/02/21 09:00 105 H 20 122/75 97 03/02/21 08:00 93 20 136/81 99 03/02/21 07:41 98.0 F 103 H 16 163/86 98 Intake and Output 03/01/21 03/02/21 03/02/21 22:59 06:59 14:59 Other: Weight 149.685 kg Results CBC & Chem 7: 03/02/21 08:17 03/02/21 08:17 Labs: Abnormal Lab Results - Last 24 Hours (Table) 03/02/21 Range/Units 08:17 Glucose 119 H (74-99) mg/dL
[2021-03-02] MEDS: ALBUTEROL NEBULIZED 2.5 MG/3 ML INHALATION SCH ×2 (13:13→20:23)
[2021-03-02] MEDS: lisinopriL 20 MG TAB PO SCH (14:15)
[2021-03-02] MEDS: FLUTICASONE 110 MCG INHALER INHALATION SCH (20:23)
[2021-03-03] MEDS: ALBUTEROL NEBULIZED 2.5 MG/3 ML INHALATION SCH ×2 (01:34→07:41)
[2021-03-03] MEDS: NITROGLYCERIN OINT 1 INCH/GM PACKET TOPICAL SCH (05:54)
[2021-03-03 07:34] VITALS: BP 118/76; RESP 17; TEMP 98.2
[2021-03-03] MEDS: FLUTICASONE 110 MCG INHALER INHALATION SCH (07:41)
[2021-03-03 07:50] VITALS: PULSE 85
[2021-03-03] MEDS: lisinopriL 20 MG TAB PO SCH ×2 (08:25→11:16)
[2021-03-03] MEDS ORDERED: MONTELUKAST 10 MG TAB PO SCH (09:00)
[2021-03-03] MEDS ORDERED: ASPIRIN 325 MG TAB PO SCH (09:00)
[2021-03-03] MEDS ORDERED: METOPROLOL TARTRATE 25 MG TAB PO SCH (09:00)
--- NOTE | 2021-03-03 09:39 | P.DS ---
Providers Date of admission: 03/02/21 09:39 Expected date of discharge: 03/03/21 Attending physician: Terell So Consults: 03/02/21 09:31 Consult Physician Urgent Consulting Provider: [facility] Consult Reason/Comments: Chest pain, palpitations Do you want consulting provider notified?: Yes Primary care physician: Marco [facility] Hospital Course: HISTORY OF PRESENT ILLNESS This is a 60-year-old male one of Dr. Zamora and Dr. PATIENCE Griffith with a previous medical history significant for mild persistent asthma, hypertension and hypertensive cardiovascular disease, hyperlipidemia, psoriatic arthritis, morbid obesity hypoventilation syndrome, and diagnosed to have sleep apnea. History of Covid October/2020 patient complains of a flutter feeling in his chest like his heart is irregular. He states it feels like it is hesitating. He denies tachycardia. He complains of some right-sided chest pain that lasted for about half hour but this is resolved on its own. He has not taken any medications to improve his symptoms. He did have a stress test the patient self reports as normal a year ago. He does not drink any coffee. He states he does drink some pop. No alcohol use. No abdominal pain no nausea vomiting or diarrhea. Patient came into [facility] emergency center for evaluation. Temperature 102.8, heart rate 1 W, can't speak, respiratory rate 24, blood pressure initially 148/102, pulse ox 92% with oxygen.24BC 5.4, hemoglobin 14.6, platelet count 220. INR 0.9. D-dimer 0.57. Sodium 133, potassium 5.2, chloride 102, CO2 23, BUN 19 and creatinine 0.7. Lactic acid 2.5 and repeat of 1.1. LDH 782. C-reactive protein 151. Pro-calcitonin 0.25. Chest x-ray reveals bilateral infiltrates worsening from previous study. CT angiogram of the chest was negative for pulmonary embolism and showed scattered groundglass infiltrates. Patient admitted to the [facility] floor and [facility] 03/03. TSH 0.020 and free T4 1.06. Prescription for outpatient testing of TSI and TPO will be given to the patient and follow-up with Dr. Pro regarding this. Triglycerides 111, cholesterol now 193, LDL 127, HDL 43. He has been afebrile, heart rate 79, blood pressure 118/76 and pulse ox 98% on 3 L nasal cannula. Patient has been seen by cardiology and recommending starting metoprolol 25 mg twice daily and continue lisinopril 20 mg daily follow-up with Dr. Juancho Griffith in 2 weeks and outpatient stress test may be done at that time. Patient denies any symptoms today. Patient will be discharged home today in stable condition. ASSESSMENT AND PLAN 1. Palpitations. 2. Right-sided chest pain, most likely will musculoskeletal. 3. Hypertension. 4. Hyperlipidemia. Patient unable to tolerate statin. 5. Morbid obesity with BMI of 48. 6. Obstructive sleep apnea, no CPAP. 7. Generalized osteoarthritis. 8. Mild persistent asthma without exacerbation. DISCHARGE PLAN Home. Impression and plan of care have been directed as dictated by the signing physician. Kiley Diaz nurse practitioner acting as scribe for signing ph ysician. Patient Condition at Discharge: Good Plan - Discharge Summary Discharge Rx Participant: Yes New Discharge Prescriptions: New Metoprolol Tartrate [Lopressor] 25 mg PO BID 30 Days #60 tab Continue lisinopriL [Prinivil] 20 mg PO DAILY No Action Montelukast Sodium [Singulair] 10 mg PO DAILY Albuterol Nebulized [Ventolin Nebulized] 2.5 mg INHALATION RT-Q6H Fluticasone Propionate [Flovent Hfa 220 mcg] 2 puff INHALATION RT-BID 6 Pill Vitamin Pack 1 pack PO DAILY@1800 Discharge Medication List Montelukast Sodium [Singulair] 10 mg PO DAILY 05/18/18 [History] Albuterol Nebulized [Ventolin Nebulized] 2.5 mg INHALATION RT-Q6H 10/15/19 [History] lisinopriL [Prinivil] 20 mg PO DAILY 03/09/20 [History] Fluticasone Propionate [Flovent Hfa 220 mcg] 2 puff INHALATION RT-BID 06/16/20 [History] 6 Pill Vitamin Pack 1 pack PO DAILY@1800 03/02/21 [History] Metoprolol Tartrate [Lopressor] 25 mg PO BID 30 Days #60 tab 03/03/21 [Rx] Follow up Appointment(s)/Referral(s): Sonny Griffith MD [STAFF PHYSICIAN] - 3 Days (office will call patient with appointment ) Kut,Marco A, MD [Primary Care Provider] - 1 Week Ambulatory/Diagnostic Orders: Miscellaneous Lab Order [LAB.AMB] Location: None Selected Patient Instructions/Handouts: Chest Pain (DC), Heart Palpitations (DC) Discharge Disposition: HOME SELF-CARE
[2021-03-03 09:55] LABS: Chol/HDL Ratio 4.49; LDL Cholesterol,Calculated 127.8 mg/dL (0.0-131.0); VLDL Calculation 22.2 mg/dL (5.00-40.00)
--- NOTE | 2021-03-03 12:23 | P.CRDCN ---
History of Present Illness History of present illness: HISTORY OF PRESENTING ILLNESS This is a pleasant 60-year-old male past medical history significant for hypertension, dyslipidemia, asthma, former smoker, palpitations. Had Covid-19 in october 2020. He used to follow in the office with Dr. Lemus, however was supposed to follow-up with Dr. Griffith however has not gone to his appointments in the office. We have been asked to see in consultation for palpitations and chest pain. Patient states he was taking his blood pressure this morning, he felt as if his heart was "skipping beats and fluttering in the chest" Also having palpitations. He states he does have this sometimes after his breathing treatments at home, however he felt that these palpitations were different. He states he has been having palpitations for years, however, lately have been more frequent. He does have chronic shortness of breath. He states recently his doctor gave him a Z-pack last week due to congestion. He had an isolated right chest pain yesterday. It is nonradiating, nonexertional. No aggravating or alleviating factors. He denies any additional chest pain, fatigue, weakness, lightheadedness, syncope. Denies symptoms of orthopnea PND. He states he has pre-diabetes. He is a former smoker quit 40 years ago, denies alcohol or illicit drug use. Current medications at home include albuterol, Flovent, lisinopril 20 mg daily, Singulair. In December 2015 patient was seen in the office by Dr. Lemus he also had complaints of palpitations. A Holter monitor from 11/17/19 17012/15/2016 which revealed sinus rhythm with a heart rate of 90 bpm. One episode of sinus tachycardia. No episodes of critical or serious events. DIAGNOSTICS EKG reveals sinus rhythm, heart rate 93,no significant ST-T wave abnormalities. Echocardiogram revealed an EF of 55-60%, trace mitral regurgitation Telemetry tracings indicate sinus mechanism, heart rate 70s to 80s, patient is occasionally sinus tachycardia. No ectopy or arrhythmia noted. In 2017 patient underwent stress echo test which was negative for stress induced ischemia Chest xray increased interstitial changes in the perihilar and lower lung regions. Laboratory reviewed, CBC unremarkable, sodium 140, potassium 4.3, BUN 18, serum creatinine 0.74, magnesium 1.9, troponin negative 3, proBNP 24, TSH was low but free T4 within normal limits REVIEW OF SYSTEMS At the time of my exam: CONSTITUTIONAL: Denies fever or chills. CARDIOVASCULAR: Positive palpitations, positive right-sided chest pain, shortnes s of breath Denies orthopnea, PND RESPIRATORY: Denies cough. GASTROINTESTINAL: Denies abdominal pain, diarrhea, constipation, nausea or vomiting. MUSCULOSKELETAL: Denies myalgias. NEUROLOGIC: Denies numbness, tingling, headacbe or weakness. ENDOCRINE: Denies fatigue, weight change, polydipsia or polyurina. GENITOURINARY: Denies burning, hematuria or urgency with micturation. HEMATOLOGIC: Denies history of anemia or bleeding. PHYSICAL EXAMINATION Blood pressure 133/80 heart rate 92 afebrile and maintaining oxygen saturation 90% 3 L nasal cannula CONSTITUTIONAL: No apparent distress. HEENT: Head is normocephalic. Pupils are equal, round. Sclerae anicteric. Mucous membranes of the mouth are moist. No JVD. No carotid bruit. CHEST EXAMINATION: Lungs are clear to auscultation. No chest wall tenderness is noted on palpation or with deep breathing. HEART EXAMINATION: Regular rate and rhythm. S1, S2 heard. No murmurs, gallops or rub. ABDOMEN: Soft, nontender. Positive bowel sounds. EXTREMITIES: 2+ peripheral pulses, no lower extremity edema and no calf tenderness. SKIN: intact NEUROLOGIC EXAMINATION: Patient is awake, alert and oriented x3. ASSESSMENT Palpitations Right-sided chest pain, atypical, acute coronary syndrome has been ruled out Hypertension Dyslipidemia PLAN An acute coronary event has been ruled out with no EKG evidence of ischemia and negative cardiac enzymes. Echocardiogram revealed no acute findings. We will start patient on metoprolol titrate 25 mg twice a day, continue lisinopril 20 mg daily. Recommend patient follow-up with Dr. Griffith within 2 weeks. A stress test can be done as an outpatient. From cardiology perspective, patient is stable to be discharged home. Thank you kindly for this consultation. Nurse Practitioner note has been reviewed, I agree with a documented findings and plan of care. Patient was seen and examined. Past Medical History Past Medical History: Asthma, Hyperlipidemia, Hypertension, Osteoarthritis (OA) Additional Past Medical History / Comment(s): Persistent asthma, NIDDM II- arthritis R knee, History of Any Multi-Drug Resistant Organisms: None Reported Past Surgical History: Hernia Repair Additional Past Surgical History / Comment(s): Umbilical hernia repair Past Anesthesia/Blood Transfusion Reactions: Motion Sickness Past Psychological History: No Psychological Hx Reported Smoking Status: Former smoker Past Alcohol Use History: None Reported Past Drug Use History: None Reported - Past Family History Mother History Unknown: Yes Family Medical History: Cancer Additional Family Medical History / Comment(s): Mother of ovarian cancer at the age of 78yrs. Father History Unknown: Yes Family Medical History: GI Bleed Additional Family Medical History / Comment(s): Father around age 50 from a bleeding ulcer. Brother(s) Family Medical History: No Reported History Additional Family Medical History / Comment(s): The patient has 2 brothers and one from pneumonia at age 59, 1 is alive with history of bariatric surgery. Sister(s) Family Medical History: No Reported History Additional Family Medical History / Comment(s): Patient has 2 sisters and one has history of gallbladder disease. Daughter(s) Family Medical History: Unable to Obtain Additional Family Medical History / Comment(s): Patient has one daughter with no major medical problems. Son(s) Additional Family Medical History / Comment(s): Patient has 2 sons and one has hypertension. Medications and Allergies Home Medications Medication Instructions Recorded Confirmed Type Montelukast Sodium [Singulair] 10 mg PO DAILY 05/18/18 03/02/21 History Albuterol Nebulized [Ventolin 2.5 mg INHALATION RT-Q6H 10/15/19 03/02/21 History Nebulized] lisinopriL [Prinivil] 20 mg PO DAILY 03/09/20 03/02/21 History Fluticasone Propionate [Flovent 2 puff INHALATION RT-BID 06/16/20 03/02/21 History Hfa 220 mcg] 6 Pill Vitamin Pack 1 pack PO DAILY@1800 03/02/21 03/02/21 History Metoprolol Tartrate [Lopressor] 25 mg PO BID 30 Days #60 tab 03/03/21 Rx Allergies Allergy/AdvReac Type Severity Reaction Status Date / Time Znvmctf-Prv-Zad Reductase AdvReac MUSCLE PAIN Verified 03/02/21 09:42 Inhibitor Physical Exam Vitals: Vital Signs Temp Pulse Pulse Resp BP BP Pulse Ox 03/02/21 12:38 98.0 F 87 14 144/90 98 03/02/21 12:18 97.7 F 92 18 133/80 97 03/02/21 11:30 90 18 112/71 96 03/02/21 09:00 105 H 20 122/75 97 03/02/21 08:00 93 20 136/81 99 03/02/21 07:41 98.0 F 103 H 16 163/86 98 Intake and Output 03/01/21 03/02/21 03/02/21 22:59 06:59 14:59 Other: Weight 149.685 kg Results 03/02/21 08:17 03/02/21 08:17 Cardiac Enzymes 03/02/21 03/02/21 03/02/21 Range/Units 08:17 08:17 11:10 AST 23 (17-59) U/L Troponin I <0.012 <0.012 (0.000-0.034) ng/mL Coagulation 03/02/21 Range/Units 08:17 PT 9.5 (9.0-12.0) sec APTT 22.5 (22.0-30.0) sec CBC 03/02/21 Range/Units 08:17 WBC 8.7 (3.8-10.6) k/uL RBC 4.84 (4.30-5.90) m/uL Hgb 15.5 (13.0-17.5) gm/dL Hct 44.7 (39.0-53.0) % Plt Count 324 (150-450) k/uL Comprehensive Metabolic Panel 03/02/21 Range/Units 08:17 Sodium 140 (137-145) mmol/L Potassium 4.1 (3.5-5.1) mmol/L Chloride 106 (98-107) mmol/L Carbon Dioxide 26 (22-30) mmol/L BUN 18 (9-20) mg/dL Creatinine 0.74 (0.66-1.25) mg/dL Glucose 119 H (74-99) mg/dL Calcium 9.6 (8.4-10.2) mg/dL AST 23 (17-59) U/L ALT 16 (4-49) U/L Alkaline Phosphatase 57 (38-126) U/L Total Protein 6.9 (6.3-8.2) g/dL Albumin 4.3 (3.5-5.0) g/dL Current Medications Generic Name Dose Route Start Last Admin Trade Name Freq PRN Reason Stop Dose Admin Albuterol Sulfate 2.5 mg 03/02/21 14:00 03/02/21 13:13 Albuterol Nebulized 2.5 Mg/3 Ml INHALATION Not Given RT-Q6H [facility] Aspirin 325 mg 03/03/21 09:00 Aspirin 325 Mg Tab PO DAILY [facility] Fluticasone Propionate 2 puff 03/02/21 20:00 Fluticasone 110 Mcg Inhaler INHALATION RT-BID [facility] Lisinopril 20 mg 03/02/21 12:15 Lisinopril 20 Mg Tab PO DAILY [facility] Montelukast Sodium 10 mg 03/03/21 09:00 Montelukast 10 Mg Tab PO DAILY [facility] Nitroglycerin 0.4 mg 03/02/21 09:31 Nitroglycerin Sl Tabs 0.4 Mg Tab SUBLINGUAL Q5M PRN Chest Pain Nitroglycerin 1 inch 03/02/21 12:00 03/02/21 12:15 Nitroglycerin Oint 1 Inch/Gm Packet TOPICAL Not Given Q6HR [facility] Intake and Output 03/01/21 03/02/21 03/02/21 22:59 06:59 14:59 Other: Weight 149.685 kg Patient Weight 03/03/21 06:59 Weight 149.685 kg 03/02/21 08:17 03/02/21 08:17
== END 2021-03-03 12:09 | disposition home or self-care (01) ==
LOC: EC 07:39 → 6NMEDSUR 09:39
PROVIDERS: ADMIT Internal Medicine Geriatric Medicine; ATTEND Internal Medicine Geriatric Medicine
DX: R00.2 Palpitations (principal); R07.89 Other chest pain; I11.9 Hypertensive heart disease without heart failure; E78.5 Hyperlipidemia, unspecified; E66.2 Morbid (severe) obesity with alveolar hypoventilation; Z68.42 Body mass index [BMI] 45.0-49.9, adult; M17.11 Unilateral primary osteoarthritis, right knee; J45.30 Mild persistent asthma, uncomplicated; L40.50 Arthropathic psoriasis, unspecified; I49.8 Other specified cardiac arrhythmias; E11.9 Type 2 diabetes mellitus without complications; Z86.16 Personal history of COVID-19; Z87.891 Personal history of nicotine dependence; Z79.899 Other long term (current) drug therapy; Z79.51 Long term (current) use of inhaled steroids; Z88.8 Allergy status to other drugs, medicaments and biological substances; Z80.41 Family history of malignant neoplasm of ovary; Z82.49 Family history of ischemic heart disease and other diseases of the circulatory system; Z83.79 Family history of other diseases of the digestive system; Z83.6 Family history of other diseases of the respiratory system
CPT/HCPCS: 93005 ×2; 99285; 36415; 94640 ×3; 93306; 84439; 83880; 80061; 80053; 84443; 83735; 84484; 85025; 85610; 85730; 71046; G0378 ×2; Q9950

== ENCOUNTER 2022-02-04 16:36 | Observation (INO) | payer BC, OTHER ==
[2022-02-04] MEDS ORDERED: SODIUM CHLORIDE 0.9% 500 ML 500 ML IV STA (16:58)
--- NOTE | 2022-02-04 17:05 | ED ---
General Adult HPI - General Chief complaint: Upper Respiratory Infection Stated complaint: ALEXUS Time Seen by Provider: 02/04/22 16:46 Source: patient, RN notes reviewed Mode of arrival: wheelchair Limitations: no limitations - History of Present Illness Initial comments: 61-year-old male presents to the emergency department for evaluation of increasing shortness of breath and cough, onset 1 week prior to arrival. Patient wears home oxygen at 3 L via nasal cannula. Patient states he has a history of COPD and asthma, as well as Covid nearly a year and a half ago. States he took Tylenol last night for onset of fever. Reports productive cough. Complains of right-sided chest pain; discomfort that worsens with breathing. States his cough is triggered by deep inspiration. Denies headache, chills, dizziness, abdominal pain, nausea, vomiting, diarrhea, appetite changes, dysuria, or lower extremity edema. - Related Data Home Medications Medication Instructions Recorded Confirmed Montelukast Sodium [Singulair] 10 mg PO DAILY 05/18/18 03/02/21 Albuterol Nebulized [Ventolin 2.5 mg INHALATION RT-Q6H 10/15/19 03/02/21 Nebulized] lisinopriL [Prinivil] 20 mg PO DAILY 03/09/20 03/02/21 Fluticasone Propionate [Flovent 2 puff INHALATION RT-BID 06/16/20 03/02/21 Hfa 220 mcg] 6 Pill Vitamin Pack 1 pack PO DAILY@1800 03/02/21 03/02/21 Previous Rx's Medication Instructions Recorded Metoprolol Tartrate [Lopressor] 25 mg PO BID 30 Days #60 tab 03/03/21 Allergies Allergy/AdvReac Type Severity Reaction Status Date / Time Cmpwwjp-HTJ-PhI Reductase AdvReac MUSCLE PAIN Verified 02/04/22 16:44 Inhibitor [Ovuisvr-Vpy-Zwk Reductase Inhibitor] Review of Systems ROS Statement: Those systems with pertinent positive or pertinent negative responses have been documented in the HPI. ROS Other: All systems not noted in ROS Statement are negative. Past Medical History Past Medical History: Asthma, Diabetes Mellitus, Hyperlipidemia, Hypertension, Osteoarthritis (OA) Additional Past Medical History / Comment(s): Persistent asthma, NIDDM II- arthritis R knee, History of Any Multi-Drug Resistant Organisms: None Reported Past Surgical History: Hernia Repair Additional Past Surgical History / Comment(s): Umbilical hernia repair Past Anesthesia/Blood Transfusion Reactions: Motion Sickness Past Psychological History: No Psychological Hx Reported Smoking Status: Former smoker Past Alcohol Use History: None Reported Past Drug Use History: None Reported - Past Family History Mother History Unknown: Yes Family Medical History: Cancer Additional Family Medical History / Comment(s): Mother of ovarian cancer at the age of 78yrs. Father History Unknown: Yes Family Medical History: GI Bleed Additional Family Medical History / Comment(s): Father around age 50 from a bleeding ulcer. Brother(s) Family Medical History: No Reported History Additional Family Medical History / Comment(s): The patient has 2 brothers and one from pneumonia at age 59, 1 is alive with history of bariatric surgery. Sister(s) Family Medical History: No Reported History Additional Family Medical History / Comment(s): Patient has 2 sisters and one has history of gallbladder disease. Daughter(s) Family Medical History: Unable to Obtain Additional Family Medical History / Comment(s): Patient has one daughter with no major medical problems. Son(s) Additional Family Medical History / Comment(s): Patient has 2 sons and one has hypertension. General Exam Limitations: no limitations (Well-developed, well-nourished male in no acute distress. Initial temperature 99.6, pulse 11, respirations 25, blood pressure 145/75, pulse ox 98% on 3 L.) General appearance: alert, in no apparent distress Eye exam: Present: normal appearance. Absent: scleral icterus, conjunctival injection, periorbital swelling, periorbital tenderness ENT exam: Present: normal exam, normal oropharynx, mucous membranes moist, TM's normal bilaterally Neck exam: Present: normal inspection, full ROM. Absent: lymphadenopathy Respiratory exam: Present: wheezes (Feeling expiratory wheezes scattered throughout the right posterior lung field), other (Wearing oxygen via nasal cannula per regimen). Absent: rales, rhonchi, stridor, chest wall tenderness, accessory muscle use Cardiovascular Exam: Present: regular rate, normal rhythm, normal heart sounds GI/Abdominal exam: Present: soft, normal bowel sounds, other (Large abdominal habitus). Absent: distended, tenderness, guarding, rebound, rigid Extremities exam: Present: normal inspection, normal capillary refill. Absent: pedal edema Back exam: Absent: CVA tenderness (R), CVA tenderness (L) Neurological exam: Present: alert, oriented X3, CN II-XII intact Psychiatric exam: Present: normal affect, normal mood Skin exam: Present: warm, dry, intact, normal color. Absent: rash Course Vital Signs 02/04/22 02/04/22 02/04/22 16:41 18:00 19:29 Temperature 99.6 F Pulse Rate 101 H 97 85 Respiratory 25 H 18 Rate Blood Pressure 145/75 147/95 O2 Sat by Pulse 98 99 Oximetry 02/04/22 02/04/22 02/05/22 19:38 22:20 00:14 Temperature 98.8 F Pulse Rate 95 95 96 Respiratory 18 20 Rate Blood Pressure 130/82 133/86 O2 Sat by Pulse 98 97 Oximetry 02/05/22 02:53 Temperature Pulse Rate 98 Respiratory Rate Blood Pressure O2 Sat by Pulse Oximetry - Reevaluation(s) Reevaluation #1: 02/04/22 19:00 Upon reevaluation, patient reports he feels somewhat improved after the breathi ng treatment. Discussed option of discharged home on oral antibiotic therapy and close follow-up or hospital admission. Patient prefers to stay in the hospital for ongoing treatment. I feel that this is a reasonable request given his history of oxygen-dependency, increased shortness of breath, cough, leukocytosis, and low-grade fever. Medical Decision Making - Medical Decision Making This is a 61-year-old male with a past medical history of asthma, COPD, oxygen dependency, hypertension, and borderline diabetes who presents to the emergency department with complaints of increasing cough and shortness of breath 1 week. Upon exam, patient is initially mildly tachypneic, slightly tachycardic, and has an elevated temperature at 99.6. Lungs sounds are clear to auscultation with the exception of faint scattered wheezes in the right lung babb. Patient is wearing oxygen at 3 L at this time. Laboratory studies were obtained showing a leukocytosis (WBC 14.3). Covid and influenza are negative. Remainder of laboratory studies are unremarkable. Chest x-ray appears normal, however given his symptoms I am concerned about an early pneumonia therefore he will be given IV antibiotics and a DuoNeb along with a dose of steroid. Patient did have some improvement. However, given his history he will be admitted to the hospital as an observation patient for ongoing treatment. I spoke with Dr. Lazo who agrees to accept this admission. Attending: Jc. - Lab Data Result diagrams: 02/04/22 17:05 02/04/22 18:43 Lab Results 02/04/22 02/04/22 02/04/22 Range/Units 17:05 17:05 17:05 WBC 14.3 H (3.8-10.6) k/uL RBC 4.71 (4.30-5.90) m/uL Hgb 14.9 (13.0-17.5) gm/dL Hct 45.2 (39.0-53.0) % MCV 96.1 (80.0-100.0) fL MCH 31.6 (25.0-35.0) pg MCHC 32.9 (31.0-37.0) g/dL RDW 13.7 (11.5-15.5) % Plt Count 297 (150-450) k/uL MPV 6.6 Neutrophils % 80 % Lymphocytes % 11 % Monocytes % 5 % Eosinophils % 2 % Basophils % 1 % Neutrophils # 11.4 H (1.3-7.7) k/uL Lymphocytes # 1.5 (1.0-4.8) k/uL Monocytes # 0.7 (0-1.0) k/uL Eosinophils # 0.3 (0-0.7) k/uL Basophils # 0.1 (0-0.2) k/uL PT 9.9 (9.0-12.0) sec INR 0.9 (<1.2) APTT 24.2 (22.0-30.0) sec D-Dimer (<0.60) mg/L FEU Sodium (137-145) mmol/L Potassium (3.5-5.1) mmol/L Chloride (98-107) mmol/L Carbon Dioxide (22-30) mmol/L Anion Gap mmol/L BUN (9-20) mg/dL Creatinine (0.66-1.25) mg/dL Est GFR (CKD-EPI)AfAm (>60 ml/min/1.73 sqM) Est GFR (CKD-EPI)NonAf (>60 ml/min/1.73 sqM) Glucose (74-99) mg/dL Plasma Lactic Acid Jorge 1.3 (0.7-2.0) mmol/L Calcium (8.4-10.2) mg/dL Magnesium (1.6-2.3) mg/dL Total Bilirubin (0.2-1.3) mg/dL AST (17-59) U/L ALT (4-49) U/L Alkaline Phosphatase (38-126) U/L Troponin I (0.000-0.034) ng/mL NT-Pro-B Natriuret Pep pg/mL Total Protein (6.3-8.2) g/dL Albumin (3.5-5.0) g/dL Urine Color Urine Appearance (Clear) Urine pH (5.0-8.0) Ur Specific [place] (1.001-1.035) Urine Protein (Negative) Urine Glucose (UA) (Negative) Urine Ketones (Negative) Urine Blood (Negative) Urine Nitrite (Negative) Urine Bilirubin (Negative) Urine Urobilinogen (<2.0) mg/dL Ur Leukocyte Esterase (Negative) Coronavirus (PCR) (Not Detectd) Influenza Type A RNA (Not Detectd) Influenza Type B (PCR) (Not Detectd) 02/04/22 02/04/22 02/04/22 Range/Units 17:05 17:05 17:08 WBC (3.8-10.6) k/uL RBC (4.30-5.90) m/uL Hgb (13.0-17.5) gm/dL Hct (39.0-53.0) % MCV (80.0-100.0) fL MCH (25.0-35.0) pg MCHC (31.0-37.0) g/dL RDW (11.5-15.5) % Plt Count (150-450) k/uL MPV Neutrophils % % Lymphocytes % % Monocytes % % Eosinophils % % Basophils % % Neutrophils # (1.3-7.7) k/uL Lymphocytes # (1.0-4.8) k/uL Monocytes # (0-1.0) k/uL Eosinophils # (0-0.7) k/uL Basophils # (0-0.2) k/uL PT (9.0-12.0) sec INR (<1.2) APTT (22.0-30.0) sec D-Dimer (<0.60) mg/L FEU Sodium (137-145) mmol/L Potassium (3.5-5.1) mmol/L Chloride (98-107) mmol/L Carbon Dioxide (22-30) mmol/L Anion Gap mmol/L BUN (9-20) mg/dL Creatinine (0.66-1.25) mg/dL Est GFR (CKD-EPI)AfAm (>60 ml/min/1.73 sqM) Est GFR (CKD-EPI)NonAf (>60 ml/min/1.73 sqM) Glucose (74-99) mg/dL Plasma Lactic Acid Jorge (0.7-2.0) mmol/L Calcium (8.4-10.2) mg/dL Magnesium (1.6-2.3) mg/dL Total Bilirubin (0.2-1.3) mg/dL AST (17-59) U/L ALT (4-49) U/L Alkaline Phosphatase (38-126) U/L Troponin I 0.018 (0.000-0.034) ng/mL NT-Pro-B Natriuret Pep 22 pg/mL Total Protein (6.3-8.2) g/dL Albumin (3.5-5.0) g/dL Urine Color Urine Appearance (Clear) Urine pH (5.0-8.0) Ur Specific [place] (1.001-1.035) Urine Protein (Negative) Urine Glucose (UA) (Negative) Urine Ketones (Negative) Urine Blood (Negative) Urine Nitrite (Negative) Urine Bilirubin (Negative) Urine Urobilinogen (<2.0) mg/dL Ur Leukocyte Esterase (Negative) Coronavirus (PCR) (Not Detectd) Influenza Type A RNA Not Detected (Not Detectd) Influenza Type B (PCR) Not Detected (Not Detectd) 02/04/22 02/04/22 02/04/22 Range/Units 17:08 18:00 18:27 WBC (3.8-10.6) k/uL RBC (4.30-5.90) m/uL Hgb (13.0-17.5) gm/dL Hct (39.0-53.0) % MCV (80.0-100.0) fL MCH (25.0-35.0) pg MCHC (31.0-37.0) g/dL RDW (11.5-15.5) % Plt Count (150-450) k/uL MPV Neutrophils % % Lymphocytes % % Monocytes % % Eosinophils % % Basophils % % Neutrophils # (1.3-7.7) k/uL Lymphocytes # (1.0-4.8) k/uL Monocytes # (0-1.0) k/uL Eosinophils # (0-0.7) k/uL Basophils # (0-0.2) k/uL PT (9.0-12.0) sec INR (<1.2) APTT (22.0-30.0) sec D-Dimer 0.48 (<0.60) mg/L FEU Sodium (137-145) mmol/L Potassium (3.5-5.1) mmol/L Chloride (98-107) mmol/L Carbon Dioxide (22-30) mmol/L Anion Gap mmol/L BUN (9-20) mg/dL Creatinine (0.66-1.25) mg/dL Est GFR (CKD-EPI)AfAm (>60 ml/min/1.73 sqM) Est GFR (CKD-EPI)NonAf (>60 ml/min/1.73 sqM) Glucose (74-99) mg/dL Plasma Lactic Acid Jorge (0.7-2.0) mmol/L Calcium (8.4-10.2) mg/dL Magnesium (1.6-2.3) mg/dL Total Bilirubin (0.2-1.3) mg/dL AST (17-59) U/L ALT (4-49) U/L Alkaline Phosphatase (38-126) U/L Troponin I (0.000-0.034) ng/mL NT-Pro-B Natriuret Pep pg/mL Total Protein (6.3-8.2) g/dL Albumin (3.5-5.0) g/dL Urine Color Yellow Urine Appearance Clear (Clear) Urine pH 5.5 (5.0-8.0) Ur Specific [place] 1.024 (1.001-1.035) Urine Protein Negative (Negative) Urine Glucose (UA) Negative (Negative) Urine Ketones Negative (Negative) Urine Blood Negative (Negative) Urine Nitrite Negative (Negative) Urine Bilirubin Negative (Negative) Urine Urobilinogen <2.0 (<2.0) mg/dL Ur Leukocyte Esterase Negative (Negative) Coronavirus (PCR) Not Detected (Not Detectd) Influenza Type A RNA (Not Detectd) Influenza Type B (PCR) (Not Detectd) 02/04/22 Range/Units 18:43 WBC (3.8-10.6) k/uL RBC (4.30-5.90) m/uL Hgb (13.0-17.5) gm/dL Hct (39.0-53.0) % MCV (80.0-100.0) fL MCH (25.0-35.0) pg MCHC (31.0-37.0) g/dL RDW (11.5-15.5) % Plt Count (150-450) k/uL MPV Neutrophils % % Lymphocytes % % Monocytes % % Eosinophils % % Basophils % % Neutrophils # (1.3-7.7) k/uL Lymphocytes # (1.0-4.8) k/uL Monocytes # (0-1.0) k/uL Eosinophils # (0-0.7) k/uL Basophils # (0-0.2) k/uL PT (9.0-12.0) sec INR (<1.2) APTT (22.0-30.0) sec D-Dimer (<0.60) mg/L FEU Sodium 137 (137-145) mmol/L Potassium 4.2 (3.5-5.1) mmol/L Chloride 105 (98-107) mmol/L Carbon Dioxide 26 (22-30) mmol/L Anion Gap 6 mmol/L BUN 13 (9-20) mg/dL Creatinine 0.69 (0.66-1.25) mg/dL Est GFR (CKD-EPI)AfAm >90 (>60 ml/min/1.73 sqM) Est GFR (CKD-EPI)NonAf >90 (>60 ml/min/1.73 sqM) Glucose 125 H (74-99) mg/dL Plasma Lactic Acid Jorge (0.7-2.0) mmol/L Calcium 8.3 L (8.4-10.2) mg/dL Magnesium 1.8 (1.6-2.3) mg/dL Total Bilirubin 1.0 (0.2-1.3) mg/dL AST 20 (17-59) U/L ALT 13 (4-49) U/L Alkaline Phosphatase 61 (38-126) U/L Troponin I (0.000-0.034) ng/mL NT-Pro-B Natriuret Pep pg/mL Total Protein 6.2 L (6.3-8.2) g/dL Albumin 3.8 (3.5-5.0) g/dL Urine Color Urine Appearance (Clear) Urine pH (5.0-8.0) Ur Specific [place] (1.001-1.035) Urine Protein (Negative) Urine Glucose (UA) (Negative) Urine Ketones (Negative) Urine Blood (Negative) Urine Nitrite (Negative) Urine Bilirubin (Negative) Urine Urobilinogen (<2.0) mg/dL Ur Leukocyte Esterase (Negative) Coronavirus (PCR) (Not Detectd) Influenza Type A RNA (Not Detectd) Influenza Type B (PCR) (Not Detectd) - EKG Data EKG shows normal: sinus rhythm Rate: normal EKG Comments: EKG was obtained at 1710 showing sinus tachycardia. Ventricular rate 103, DE interval 156, QRS duration 103, QT/QTC 331/391. Interpretation: Abnormal rhythm ECG. - Radiology Data Radiology results: report reviewed, image reviewed Two-view chest x-ray was obtained. Report was reviewed in its entirety. Impression per Dr. Molina as normal chest. No change. Disposition Clinical Impression: COPD exacerbation Disposition: ADMITTED IP TO THIS HOSP Condition: Serious Decision Date: 02/04/22 Decision Time: 19:57
--- NOTE | 2022-02-04 17:48 | XR ---
EXAMINATION TYPE: XR chest 2V DATE OF EXAM: 02/04/2022 COMPARISON: NONE HISTORY: Short of breath TECHNIQUE: 2 views FINDINGS: Heart is normal. Lungs are clear of infiltrate. No heart failure. There are no hilar masses . The bony thorax is intact. IMPRESSION: Normal chest. No change
[2022-02-04 17:51] LABS: Basophils # (A) 0.1 k/uL (0-0.2); Basophils % (A) 1 %; Eosinophils # (A) 0.3 k/uL (0-0.7); Eosinophils % (A) 2 %; HCT 45.2 % (39.0-53.0); HGB 14.9 gm/dL (13.0-17.5); Lymphocytes # (A) 1.5 k/uL (1.0-4.8); Lymphocytes % (A) 11 %; MCH 31.6 pg (25.0-35.0); MCHC 32.9 g/dL (31.0-37.0); MCV 96.1 fL (80.0-100.0); Mean Platelet Volume 6.6; Monocytes # (A) 0.7 k/uL (0-1.0); Monocytes % (A) 5 %; Neutrophils # (A) 11.4 k/uL (1.3-7.7); Neutrophils % (A) 80 %; Platelet Count 297 k/uL (150-450); RBC 4.71 m/uL (4.30-5.90); RDW 13.7 % (11.5-15.5); WBC 14.3 k/uL (3.8-10.6)
[2022-02-04 18:06] LABS: INR 0.9 (<1.2); Partial Thromboplastin Time 24.2 sec (22.0-30.0); Prothrombin Time 9.9 sec (9.0-12.0)
[2022-02-04 18:15] LABS: Appearance,Urine Clear (Clear); Bilirubin,Urine Negative (Negative); Blood,Urine Negative (Negative); Color,Urine Yellow; Glucose,Urine (UA) Negative (Negative); Ketones,Urine Negative (Negative); Leukocyte Esterase,Urine Negative (Negative); Nitrite,Urine Negative (Negative); PH, Urine 5.5 (5.0-8.0); Protein,Urine Negative (Negative); Specific Gravity,Urine 1.024 (1.001-1.035); Urobilinogen,Urine <2.0 mg/dL (<2.0)
[2022-02-04] MEDS ORDERED: IPRATROPIUM-ALBUTEROL 3 ML NEB INHALATION STA (18:18)
[2022-02-04] MEDS ORDERED: methylPREDNISolone SOD SUCCI 125 MG/2 ML VIAL IV STA (18:19)
[2022-02-04 19:08] LABS: ALT 13 U/L (4-49); AST 20 U/L (17-59); African American GFR (CKD) >90 (>60 ml/min/1.73 sqM); Albumin 3.8 g/dL (3.5-5.0); Alkaline Phosphatase 61 U/L (38-126); Anion Gap 6 mmol/L; Blood Urea Nitrogen 13 mg/dL (9-20); Calcium 8.3 mg/dL (8.4-10.2); Carbon Dioxide 26 mmol/L (22-30); Chloride 105 mmol/L (98-107); Glucose 125 mg/dL (74-99); Magnesium 1.8 mg/dL (1.6-2.3); Non-African American GFR(CKD) >90 (>60 ml/min/1.73 sqM); Potassium 4.2 mmol/L (3.5-5.1); Sodium 137 mmol/L (137-145); Total Protein 6.2 g/dL (6.3-8.2)
[2022-02-04] MEDS ORDERED: AZITHROMYCIN 500 MG in SODIUM CHLORIDE 0.9% 250 ML IVPB STA (20:55)
[2022-02-04] MEDS ORDERED: HYDROmorphone 0.5 MG/0.5 ML SYRINGE IVP PRN (20:56)
[2022-02-04] MEDS ORDERED: ACETAMINOPHEN TAB 325 MG TAB PO PRN (20:56)
[2022-02-04] MEDS ORDERED: NALOXONE 0.4 MG/ML 1 ML VIAL IV PRN (20:56)
[2022-02-04] MEDS ORDERED: KETOROLAC 15 MG/ML 1 ML VIAL IVP PRN (20:56)
[2022-02-04] MEDS: FAMOTIDINE 20 MG TAB PO SCH (22:18)
[2022-02-05] MEDS: IPRATROPIUM-ALBUTEROL 3 ML NEB INHALATION PRN ×3 (02:53→11:24)
[2022-02-05 05:07] LABS: Basophils % (A) 0 %; Eosinophils % (A) 0 %; HCT 45.2 % (39.0-53.0); HGB 14.5 gm/dL (13.0-17.5); Lymphocytes # (A) 0.8 k/uL (1.0-4.8); Lymphocytes % (A) 6 %; MCH 31.1 pg (25.0-35.0); MCV 97.1 fL (80.0-100.0); Mean Platelet Volume 6.9; Monocytes # (A) 0.2 k/uL (0-1.0); Monocytes % (A) 1 %; Neutrophils % (A) 92 %; Platelet Count 303 k/uL (150-450); RBC 4.66 m/uL (4.30-5.90); RDW 13.6 % (11.5-15.5)
[2022-02-05 05:50] LABS: African American GFR (CKD) >90 (>60 ml/min/1.73 sqM); Anion Gap 6 mmol/L; Blood Urea Nitrogen 17 mg/dL (9-20); Calcium 8.7 mg/dL (8.4-10.2); Carbon Dioxide 26 mmol/L (22-30); Chloride 104 mmol/L (98-107); Glucose 218 mg/dL (74-99); Non-African American GFR(CKD) >90 (>60 ml/min/1.73 sqM); Potassium 4.8 mmol/L (3.5-5.1); Sodium 136 mmol/L (137-145)
[2022-02-05 07:34] VITALS: RESP 18
[2022-02-05 08:05] LABS: Glucose,Whole Blood 175 mg/dL (75-99)
[2022-02-05] MEDS: FAMOTIDINE 20 MG TAB PO SCH (08:28)
[2022-02-05] MEDS ORDERED: METOPROLOL TARTRATE 25 MG TAB PO SCH (09:00)
[2022-02-05] MEDS ORDERED: methylPREDNISolone SOD SUCCI 125 MG/2 ML VIAL IV SCH (09:00)
[2022-02-05] MEDS ORDERED: lisinopriL 20 MG TAB PO SCH ×2 (09:00→17:30)
[2022-02-05] MEDS ORDERED: MONTELUKAST 10 MG TAB PO SCH (09:00)
[2022-02-05 09:10] VITALS: BP 126/79; TEMP 98.5
[2022-02-05 11:33] VITALS: PULSE 82
[2022-02-05 11:39] LABS: Glucose,Whole Blood 209 mg/dL (75-99)
[2022-02-05] MEDS ORDERED: INSULIN ASPART (NovoLOG) 100 UNIT/ML VIAL SQ SCH (12:30)
[2022-02-05] MEDS ORDERED: metFORMIN 500 MG TAB PO SCH (14:00)
[2022-02-05] MEDS ORDERED: FLUTICASONE 110 MCG INHALER INHALATION SCH (20:00)
--- NOTE | 2022-02-06 17:18 | P.HPIM ---
History of Present Illness H&P Date: 02/05/22 This is a pleasant 59 year old male with medical history significant for asthma, hypertension, COPD, diabetes mellitus, also has a history of intubation from an asthma exacerbation. He presents with complaints of fever and shortness of breath over the last week which has been increasing in severity. He also reports cough with sputum production. He wears oxygen via nasal cannula at 3L which he's been on since his diagnosis of Covid about 1-1/2 years ago. He states that he was able to wean himself off and has been wearing the oxygen as needed and at night however in the last week he has been having to wear his oxygen routinely. He denies chest pain, dizziness. He denies nausea vomiting d iarrhea. He has also diabetic and has been maintained on metformin outpatient. Chest x-ray showed normal chest no change. He does have some wheezing in his right base. EKG on admission shows sinus tachycardia with a heart rate of 103, QTc interval 391. There is no significant ST or T-wave changes. White count on admission is 13.0, d-dimer 0.48, sodium 137, glucose 125, and magnesium 1.8, pro calcitonin 0.08. Patient started on breathing treatments and received a dose of IV steroids. He is also receiving azithromycin empirically receive a dose of IV azithromycin while in the emergency room. Maintained on Flovent and albuterol outpatient. Patient admitted in observation for acute COPD exacerbation. REVIEW OF SYSTEMS: CONSTITUTIONAL: Reports fever, no malaise, no fatigue. HEENT: No recent visual problems or hearing problems. Denied any sore throat. CARDIOVASCULAR: No chest pain, orthopnea, PND, no palpitations, no syncope. PULMONARY: Reports shortness of breath, productive cough. GASTROINTESTINAL: No diarrhea, no nausea, no vomiting, no abdominal pain. NEUROLOGICAL: No headaches, no weakness, no numbness. HEMATOLOGICAL: Denies any bleeding or petechiae. GENITOURINARY: Denies any burning micturition, frequency, or urgency. MUSCULOSKELETAL/RHEUMATOLOGICAL: Denies any joint pain, swelling, or any muscle pain. ENDOCRINE: Denies any polyuria or polydipsia. The rest of the 14-point review of systems is negative. PHYSICAL EXAMINATION: GENERAL: The patient is alert and oriented x3, not in any acute distress. Well developed, well nourished. Obese HEENT: Pupils are round and equally reacting to light. EOMI. No scleral icterus. No conjunctival pallor. Normocephalic, atraumatic. No pharyngeal erythema. No thyromegaly. CARDIOVASCULAR: S1 and S2 present. No murmurs, rubs, or gallops. PULMONARY: Wheezing right lung base ABDOMEN: Soft, nontender, nondistended, normoactive bowel sounds. No palpable organomegaly. MUSCULOSKELETAL: No joint swelling or deformity. EXTREMITIES: No cyanosis, clubbing, or pedal edema. NEUROLOGICAL: Gross neurological examination did not reveal any focal deficits. SKIN: No rashes. Assessment and plan Assessment Acute COPD exacerbation, evidence of bacterial infection or pneumonia because atenolol is 0.08 patient will receive 5 days of oral azithromycin and discharged on oral steroid taper Leukocytosis secondary to above History asthma requiring intubation in the past History of diabetes mellitus, patient's hyperglycemic on admission will increase metformin and glipizide for blood sugar and while on steroid taper Obesity History of Covid infection requiring prolonged oxygen support GI prophylaxis Full Code Patient will be discharged home on oral antibiotics and oral prednisone taper. He is recommended to follow up with his PCP in 1-2 days. The impression and plan of care has been dictated by Ainsley Huntley Nurse Practitioner as directed. Dr. Mary Kay MD I have performed a history and physical examination and medical decision making of this patient, discussed the same with the dictator, and agree with the dictators assessment and plan as written, documented as a scribe. Based on total visit time, I have performed more than 50% of this visit. Past Medical History Past Medical History: Asthma, Diabetes Mellitus, Hyperlipidemia, Hypertension, Osteoarthritis (OA) Additional Past Medical History / Comment(s): Persistent asthma, NIDDM II- arthritis R knee, History of Any Multi-Drug Resistant Organisms: None Reported Past Surgical History: Hernia Repair Additional Past Surgical History / Comment(s): Umbilical hernia repair Past Anesthesia/Blood Transfusion Reactions: Motion Sickness Past Psychological History: No Psychological Hx Reported Additional Psychological History / Comment(s): Pt resides in a home and his brother lives on the other side of this home. He has a glucometer. He has a nebulizer. He drives. He has a pulsosimetor. 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 Smoking Status: Former smoker Past Alcohol Use History: None Reported Additional Past Alcohol Use History / Comment(s): Pt started smoking in 1976 and quit [id number] Past Drug Use History: None Reported Additional Drug Use History / Comment(s): Patient quit smoking about 40 years ago, after 4 years of use, no alcohol intake, has nebulizer. 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 Father History Unknown: Yes Family Medical History: GI Bleed Additional Family Medical History / Comment(s): Father around age 50 from a bleeding ulcer. Brother(s) Family Medical History: No Reported History Additional Family Medical History / Comment(s): The patient has 2 brothers and one from pneumonia at age 59, 1 is alive with history of bariatric surgery. Sister(s) Family Medical History: No Reported History Additional Family Medical History / Comment(s): Patient has 2 sisters and one has history of gallbladder disease. Daughter(s) Family Medical History: Unable to Obtain Additional Family Medical History / Comment(s): Patient has one daughter with no major medical problems. Son(s) Additional Family Medical History / Comment(s): Patient has 2 sons and one has hypertension. Medications and Allergies Home Medications Medication Instructions Recorded Confirmed Type Montelukast Sodium [Singulair] 10 mg PO DAILY 05/18/18 02/05/22 History Albuterol Nebulized [Ventolin 2.5 mg INHALATION RT-Q6H 10/15/19 02/05/22 History Nebulized] lisinopriL [Prinivil] 20 mg PO DAILY@1400 03/09/20 02/05/22 History Fluticasone Propionate [Flovent 2 puff INHALATION RT-BID 06/16/20 02/05/22 History Hfa 220 mcg] Albuterol Inhaler [Ventolin Hfa 2 puff INHALATION RT-QID PRN 02/05/22 02/05/22 History Inhaler] Azithromycin [Zithromax] 500 mg PO DAILY 4 Days #4 tab 02/05/22 Rx Famotidine [Pepcid] 20 mg PO BID #60 tab 02/05/22 Rx Ipratropium-Albuterol Nebulize 3 ml INHALATION RT-QID PRN #20 each 02/05/22 Rx [Duoneb 0.5 mg-3 mg/3 ml Soln] Metoprolol Tartrate [Lopressor] 25 mg PO BID #60 tab 02/05/22 Rx glipiZIDE [Glucotrol] 2.5 mg PO AC-BID 14 Days #28 tablet 02/05/22 Rx metFORMIN HCL [Glucophage] 500 mg PO BID@0800,1400 #60 tab 02/05/22 Rx predniSONE 0 mg PO DIRECTED 14 Days #38 tab 02/05/22 Rx Allergies Allergy/AdvReac Type Severity Reaction Status Date / Time Mbtzbuk-[id number]-MtS Reductase AdvReac MUSCLE PAIN Verified 02/05/22 07:10 Inhibitor [Pphsqgz-Vze-Wdc Reductase Inhibitor] Physical Exam Vitals: Vital Signs Temp Pulse Pulse Resp BP BP Pulse Ox 02/05/22 08:00 98.5 F 100 18 126/79 96 02/05/22 07:42 88 18 02/05/22 07:31 86 18 97 02/05/22 05:06 20 02/05/22 02:53 98 02/05/22 00:14 98.8 F 96 20 133/86 97 02/04/22 22:20 95 18 130/82 98 02/04/22 19:38 95 02/04/22 19:29 85 02/04/22 18:00 97 18 147/95 99 02/04/22 16:41 99.6 F 101 H 25 H 145/75 98 Intake and Output 02/04/22 02/05/22 02/05/22 22:59 06:59 14:59 Other: Weight 160.572 kg 160.572 kg Results CBC & Chem 7: 02/05/22 04:51 02/05/22 04:51 Labs: Abnormal Lab Results - Last 24 Hours (Table) 02/04/22 02/04/22 02/05/22 Range/Units 17:05 18:43 04:51 WBC 14.3 H 13.0 H (3.8-10.6) k/uL Neutrophils # 11.4 H 12.0 H (1.3-7.7) k/uL Lymphocytes # 0.8 L (1.0-4.8) k/uL Sodium (137-145) mmol/L Glucose 125 H (74-99) mg/dL POC Glucose (mg/dL) (75-99) mg/dL Calcium 8.3 L (8.4-10.2) mg/dL Total Protein 6.2 L (6.3-8.2) g/dL 02/05/22 02/05/22 Range/Units 04:51 08:03 WBC (3.8-10.6) k/uL Neutrophils # (1.3-7.7) k/uL Lymphocytes # (1.0-4.8) k/uL Sodium 136 L (137-145) mmol/L Glucose 218 H (74-99) mg/dL POC Glucose (mg/dL) 175 H (75-99) mg/dL Calcium (8.4-10.2) mg/dL Total Protein (6.3-8.2) g/dL Thrombosis Risk Factor Assmnt - Choose All That Apply Any of the Below Risk Factors Present?: Yes Each Factor Represents 1 point: Obesity (BMI >25) Other Risk Factors: Yes Each Risk Factor Represents 2 Points: Age 61-74 years Other congenital or acquired thrombophilia - If yes, enter type in comment: No Thrombosis Risk Factor Assessment Total Risk Factor Score: 3 Thrombosis Risk Factor Assessment Level: Moderate Risk Assessment and Plan Time with Patient: Less than 30
--- NOTE | 2022-02-06 23:02 | P.DS ---
Providers Date of admission: 02/04/22 19:59 Attending physician: Emerson Lazo Primary care physician: Marco Zamora Hospital Course: Final Diagnosis Acute COPD exacerbation, evidence of bacterial infection or pneumonia because atenolol is 0.08 patient will receive 5 days of oral azithromycin and discharged on oral steroid taper Leukocytosis secondary to above History asthma requiring intubation in the past History of diabetes mellitus, patient's hyperglycemic on admission will increase metformin and glipizide for blood sugar and while on steroid taper Obesity History of Covid infection requiring prolonged oxygen support Full Code Discharge Disposition Patient is stable for discharge. He will complete a course of antibiotic therapy with oral azithromycin for 4 more days as well as oral steroid taper. Metformin has been increased on discharge and patient will also take glipizide BID while taking oral steroids to prevent hyperglycemia. He will follow up with primary care in 2-3 days. Hospital Course This is a 61 year old male patient of Dr Zamora who presents with fever and cough, shortness of breath. He has history of asthma exacerbation requiring intubation. He has been maintained on home oxygen since Covid diagnosis 1.5 years ago and came in for evaluation. He was treated for COPD exacerbation with a dose of IV steroids and also IV azithromycin in the emergency room. He was admitted for observation to the hospital. He has maintained adequate oxygen saturation on home dose of oxygen, and his lungs have cleared with nebulizer treatment which we will give patient duoneb on discharge as well. His blood culture has remained negative. Procaclitonin level 0.08. Covid, Infleunza A / Influenza B are negative. He is agreeable to discharge today and will follow up with primary care. Vital signs on discharge, temp 98.5, heart rate 100, blood pressure 126/79, 96% on 3 L. Please see medical H and P for additional information. Please see medication reconciliation for a list of current medication. Thank you for allowing us to participate in the care of this patient. The impression and plan of care has been dictated by Ainsley Huntley, Nurse Practitioner as directed. Dr. Mary Kay MD I have performed a history and physical examination and medical decision making of this patient, discussed the same with the dictator, and agree with the dictators assessment and plan as written, documented as a scribe. Based on total visit time, I have performed more than 50% of this visit. Patient Condition at Discharge: Stable Plan - Discharge Summary Discharge Rx Participant: No New Discharge Prescriptions: New glipiZIDE [Glucotrol] 2.5 mg PO AC-BID 14 Days #28 tablet Metoprolol Tartrate [Lopressor] 25 mg PO BID #60 tab Famotidine [Pepcid] 20 mg PO BID #60 tab Azithromycin [Zithromax] 500 mg PO DAILY 4 Days #4 tab Ipratropium-Albuterol Nebulize [Duoneb 0.5 mg-3 mg/3 ml Soln] 3 ml INHALATION RT-QID PRN #20 each PRN Reason: Shortness Of Breath Or Wheezing metFORMIN HCL [Glucophage] 500 mg PO BID@0800,1400 #60 tab predniSONE 0 mg PO DIRECTED 14 Days #38 tab Continue Montelukast Sodium [Singulair] 10 mg PO DAILY Albuterol Nebulized [Ventolin Nebulized] 2.5 mg INHALATION RT-Q6H lisinopriL [Prinivil] 20 mg PO DAILY@1400 Fluticasone Propionate [Flovent Hfa 220 mcg] 2 puff INHALATION RT-BID Albuterol Inhaler [Ventolin Hfa Inhaler] 2 puff INHALATION RT-QID PRN PRN Reason: Shortness Of Breath Discontinued metFORMIN HCL ER [Glucophage XR] 500 mg PO DAILY@1400 Discharge Medication List Montelukast Sodium [Singulair] 10 mg PO DAILY 05/18/18 [History] Albuterol Nebulized [Ventolin Nebulized] 2.5 mg INHALATION RT-Q6H 10/15/19 [History] lisinopriL [Prinivil] 20 mg PO DAILY@1400 03/09/20 [History] Fluticasone Propionate [Flovent Hfa 220 mcg] 2 puff INHALATION RT-BID 06/16/20 [History] Albuterol Inhaler [Ventolin Hfa Inhaler] 2 puff INHALATION RT-QID PRN 02/05/22 [History] Azithromycin [Zithromax] 500 mg PO DAILY 4 Days #4 tab 02/05/22 [Rx] Famotidine [Pepcid] 20 mg PO BID #60 tab 02/05/22 [Rx] Ipratropium-Albuterol Nebulize [Duoneb 0.5 mg-3 mg/3 ml Soln] 3 ml INHALATION RT-QID PRN #20 each 06/13/22 [Rx] Metoprolol Tartrate [Lopressor] 25 mg PO BID #60 tab 02/05/22 [Rx] glipiZIDE [Glucotrol] 2.5 mg PO AC-BID 14 Days #28 tablet 02/05/22 [Rx] metFORMIN HCL [Glucophage] 500 mg PO BID@0800,1400 #60 tab 02/05/22 [Rx] predniSONE 0 mg PO DIRECTED 14 Days #38 tab 02/05/22 [Rx] Follow up Appointment(s)/Referral(s): Marco Zamora MD [Primary Care Provider] - 1-2 days Ambulatory/Diagnostic Orders: Basic Metabolic Panel [LAB.AMB] Time Frame: 2 Days, Location: None Selected Complete Blood Count w/diff [LAB.AMB] Time Frame: 2 Days, Location: None Selected Patient Instructions/Handouts: COPD (Chronic Obstructive Pulmonary Disease) (DC) Activity/Diet/Wound Care/Special Instructions: Continue to take azithromycin for the next 4 days, take with food it can cause stomach upset Continue steroid burst and taper, continue with pepcid while on antibiotics and steroids. Can use duoneb as needed for shortness of breath and wheezing in place of albuterol. Follow up with primary care in 1-2 days Repeat labs in 2-3 days Continue with metformin, increased to twice a day Added glipizide to take twice a day while on oral steroid tapers to control blood glucose Discharge Disposition: HOME SELF-CARE
== END 2022-02-05 16:13 | disposition home or self-care (01) ==
LOC: EC 16:36 → 6NMEDSUR 19:59
PROVIDERS: ADMIT Internal Medicine; ATTEND Internal Medicine
DX: J44.1 Chronic obstructive pulmonary disease with (acute) exacerbation (principal); J44.0 Chronic obstructive pulmonary disease with (acute) lower respiratory infection; J18.9 Pneumonia, unspecified organism; J45.30 Mild persistent asthma, uncomplicated; E11.9 Type 2 diabetes mellitus without complications; I10 Essential (primary) hypertension; E78.5 Hyperlipidemia, unspecified; M17.11 Unilateral primary osteoarthritis, right knee; Z99.81 Dependence on supplemental oxygen; E66.9 Obesity, unspecified; Z68.43 Body mass index [BMI] 50.0-59.9, adult; Z20.822 Contact with and (suspected) exposure to COVID-19; Z79.51 Long term (current) use of inhaled steroids; Z79.899 Other long term (current) drug therapy; Z88.8 Allergy status to other drugs, medicaments and biological substances; Z86.16 Personal history of COVID-19; Z87.891 Personal history of nicotine dependence; Z98.890 Other specified postprocedural states; Z80.41 Family history of malignant neoplasm of ovary; Z83.79 Family history of other diseases of the digestive system; Z82.49 Family history of ischemic heart disease and other diseases of the circulatory system; Z83.6 Family history of other diseases of the respiratory system
CPT/HCPCS: 96376; 96361; 96365; 96375; 99284; 36415; 94640 ×3; 93005; 85379; 83880; 80053; 80048; 83605; 83735; 84484; 85025 ×2; 85610; 85730; 81003; 87040; 87502; 84145; 87635; 71046; G0378 ×2; J2930 ×2; J0456

== ENCOUNTER 2022-02-09 10:33 | Inpatient (IN) | payer BC, OTHER ==
[2022-02-09] MEDS ORDERED: IPRATROPIUM-ALBUTEROL 3 ML NEB INHALATION STA (11:03)
[2022-02-09] MEDS ORDERED: ACETAMINOPHEN TAB 500 MG TAB PO STA (11:03)
--- NOTE | 2022-02-09 11:05 | ED ---
General Adult HPI - General Chief complaint: Shortness of Breath Stated complaint: ALEXUS Time Seen by Provider: 02/09/22 10:48 Source: patient, RN notes reviewed Mode of arrival: ambulatory Limitations: no limitations - History of Present Illness Initial comments: Patient is a pleasant 61-year-old male presenting to the emergency department with difficulty in breathing. Onset of symptoms was a week or 2 ago and patient was in the hospital. Patient was discharged. Symptoms have worsened again the past 2-3 days. Patient did have fever at home and did take Tylenol at 1 the morning. Mild cough. No leg pain or leg swelling. Dyspnea is similar to p revious COPD. - Related Data Home Medications Medication Instructions Recorded Confirmed Montelukast Sodium [Singulair] 10 mg PO DAILY 05/18/18 02/09/22 Albuterol Nebulized [Ventolin 2.5 mg INHALATION RT-Q6H 10/15/19 02/09/22 Nebulized] lisinopriL [Prinivil] 20 mg PO DAILY@1400 03/09/20 02/09/22 Fluticasone Propionate [Flovent 2 puff INHALATION RT-BID 06/16/20 02/09/22 Hfa 220 mcg] Albuterol Inhaler [Ventolin Hfa 2 puff INHALATION RT-QID PRN 02/05/22 02/09/22 Inhaler] predniSONE See Taper PO DAILY 02/09/22 02/09/22 Previous Rx's Medication Instructions Recorded Azithromycin [Zithromax] 500 mg PO DAILY 4 Days #4 tab 02/05/22 Famotidine [Pepcid] 20 mg PO BID #60 tab 02/05/22 Ipratropium-Albuterol Nebulize 3 ml INHALATION RT-QID PRN #20 each 02/05/22 [Duoneb 0.5 mg-3 mg/3 ml Soln] Metoprolol Tartrate [Lopressor] 25 mg PO BID #60 tab 02/05/22 glipiZIDE [Glucotrol] 2.5 mg PO AC-BID 14 Days #28 tablet 02/05/22 metFORMIN HCL [Glucophage] 500 mg PO BID@0800,1400 #60 tab 02/05/22 Allergies Allergy/AdvReac Type Severity Reaction Status Date / Time [id number] Reductase AdvReac MUSCLE PAIN Verified 02/09/22 12:02 Inhibitor [Xxsypee-Ulq-Pks Reductase Inhibitor] Review of Systems ROS Statement: Those systems with pertinent positive or pertinent negative responses have been documented in the HPI. ROS Other: All systems not noted in ROS Statement are negative. Constitutional: Denies: fever Eyes: Denies: eye pain ENT: Denies: ear pain Respiratory: Reports: as per HPI, dyspnea Cardiovascular: Denies: chest pain Endocrine: Reports: fatigue Gastrointestinal: Denies: abdominal pain Genitourinary: Denies: dysuria Musculoskeletal: Denies: back pain Skin: Denies: rash Neurological: Denies: weakness Past Medical History Past Medical History: Asthma, Diabetes Mellitus, Hyperlipidemia, Hypertension, Osteoarthritis (OA) Additional Past Medical History / Comment(s): Persistent asthma, NIDDM II- arthritis R knee, History of Any Multi-Drug Resistant Organisms: None Reported Past Surgical History: Hernia Repair Additional Past Surgical History / Comment(s): Umbilical hernia repair Past Anesthesia/Blood Transfusion Reactions: Motion Sickness Past Psychological History: No Psychological Hx Reported Smoking Status: Former smoker Past Alcohol Use History: None Reported Past Drug Use History: None Reported - Past Family History Mother History Unknown: Yes Family Medical History: Cancer Additional Family Medical History / Comment(s): Mother of ovarian cancer at the age of 78yrs. Father History Unknown: Yes Family Medical History: GI Bleed Additional Family Medical History / Comment(s): Father around age 50 from a bleeding ulcer. Brother(s) Family Medical History: No Reported History Additional Family Medical History / Comment(s): The patient has 2 brothers and one from pneumonia at age 59, 1 is alive with history of bariatric surgery. Sister(s) Family Medical History: No Reported History Additional Family Medical History / Comment(s): Patient has 2 sisters and one has history of gallbladder disease. Daughter(s) Family Medical History: Unable to Obtain Additional Family Medical History / Comment(s): Patient has one daughter with no major medical problems. Son(s) Additional Family Medical History / Comment(s): Patient has 2 sons and one has hypertension. General Exam Limitations: no limitations General appearance: alert Head exam: Present: normocephalic Eye exam: Present: normal appearance Neck exam: Present: normal inspection Respiratory exam: Present: respiratory distress, wheezes Cardiovascular Exam: Present: tachycardia GI/Abdominal exam: Present: soft. Absent: tenderness Extremities exam: Present: normal inspection. Absent: pedal edema, calf tenderness Neurological exam: Present: alert Psychiatric exam: Present: normal affect, normal mood Skin exam: Present: normal color Course Vital Signs 02/09/22 02/09/22 02/09/22 10:41 10:53 11:40 Temperature 101 F H 102.1 F H Pulse Rate 128 H Respiratory 28 H 17 Rate Blood Pressure 128/67 O2 Sat by Pulse 94 L Oximetry 02/09/22 13:20 Temperature 99.5 F Pulse Rate 107 H Respiratory 16 Rate Blood Pressure 114/77 O2 Sat by Pulse 94 L Oximetry EKG Findings - EKG Comments: EKG Findings:: Sinus tachycardia 120. CO 161. QRS 96. QT 302. QTC 373. Normal axis. Normal QRS. No acute ST change. Medical Decision Making - Medical Decision Making Patient reevaluated and still feeling short of breath. Lung sounds with continued wheezing. Patient tested positive for COVID-19 infection. Patient updated on results and plan. Case discussed in detail with Dr. Lazo, covering for Dr. So, admits for Dr. Zamora. Patient will benefit from IV steroids secondary to continued dyspnea and wheezing. Monoclonal antibodies ordered in the emergency department. - Lab Data Result diagrams: 02/09/22 11:06 02/09/22 11:06 Lab Results 02/09/22 02/09/22 02/09/22 Range/Units 11:06 11:06 11:06 WBC 14.2 H (3.8-10.6) k/uL RBC 4.48 (4.30-5.90) m/uL Hgb 14.2 (13.0-17.5) gm/dL Hct 42.6 (39.0-53.0) % MCV 95.0 (80.0-100.0) fL MCH 31.7 (25.0-35.0) pg MCHC 33.3 (31.0-37.0) g/dL RDW 13.0 (11.5-15.5) % Plt Count 303 (150-450) k/uL MPV 6.4 Neutrophils % 81 % Lymphocytes % 9 % Monocytes % 6 % Eosinophils % 2 % Basophils % 1 % Neutrophils # 11.6 H (1.3-7.7) k/uL Lymphocytes # 1.2 (1.0-4.8) k/uL Monocytes # 0.9 (0-1.0) k/uL Eosinophils # 0.3 (0-0.7) k/uL Basophils # 0.1 (0-0.2) k/uL PT (9.0-12.0) sec INR (<1.2) APTT (22.0-30.0) sec Sodium (137-145) mmol/L Potassium (3.5-5.1) mmol/L Chloride (98-107) mmol/L Carbon Dioxide (22-30) mmol/L Anion Gap mmol/L BUN (9-20) mg/dL Creatinine (0.66-1.25) mg/dL Est GFR (CKD-EPI)AfAm (>60 ml/min/1.73 sqM) Est GFR (CKD-EPI)NonAf (>60 ml/min/1.73 sqM) Glucose (74-99) mg/dL Plasma Lactic Acid Jorge (0.7-2.0) mmol/L Calcium (8.4-10.2) mg/dL Total Bilirubin (0.2-1.3) mg/dL AST (17-59) U/L ALT (4-49) U/L Alkaline Phosphatase (38-126) U/L Total Protein (6.3-8.2) g/dL Albumin (3.5-5.0) g/dL Coronavirus (PCR) Detected A (Not Detectd) Influenza Type A RNA Not Detected (Not Detectd) Influenza Type B (PCR) Not Detected (Not Detectd) 02/09/22 02/09/22 02/09/22 Range/Units 11:06 11:06 11:06 WBC (3.8-10.6) k/uL RBC (4.30-5.90) m/uL Hgb (13.0-17.5) gm/dL Hct (39.0-53.0) % MCV (80.0-100.0) fL MCH (25.0-35.0) pg MCHC (31.0-37.0) g/dL RDW (11.5-15.5) % Plt Count (150-450) k/uL MPV Neutrophils % % Lymphocytes % % Monocytes % % Eosinophils % % Basophils % % Neutrophils # (1.3-7.7) k/uL Lymphocytes # (1.0-4.8) k/uL Monocytes # (0-1.0) k/uL Eosinophils # (0-0.7) k/uL Basophils # (0-0.2) k/uL PT 9.8 (9.0-12.0) sec INR 0.9 (<1.2) APTT 22.2 (22.0-30.0) sec Sodium 137 (137-145) mmol/L Potassium 3.8 (3.5-5.1) mmol/L Chloride 104 (98-107) mmol/L Carbon Dioxide 28 (22-30) mmol/L Anion Gap 5 mmol/L BUN 18 (9-20) mg/dL Creatinine 0.80 (0.66-1.25) mg/dL Est GFR (CKD-EPI)AfAm >90 (>60 ml/min/1.73 sqM) Est GFR (CKD-EPI)NonAf >90 (>60 ml/min/1.73 sqM) Glucose 132 H (74-99) mg/dL Plasma Lactic Acid Jorge 1.0 (0.7-2.0) mmol/L Calcium 8.5 (8.4-10.2) mg/dL Total Bilirubin 0.6 (0.2-1.3) mg/dL AST 21 (17-59) U/L ALT 15 (4-49) U/L Alkaline Phosphatase 65 (38-126) U/L Total Protein 6.3 (6.3-8.2) g/dL Albumin 3.7 (3.5-5.0) g/dL Coronavirus (PCR) (Not Detectd) Influenza Type A RNA (Not Detectd) Influenza Type B (PCR) (Not Detectd) - Radiology Data Radiology results: image reviewed (Chest x-ray shows right middle infiltrate changes) Disposition Clinical Impression: Acute exacerbation of chronic obstructive pulmonary disease, COVID-19 Disposition: ADMITTED IP TO THIS HOSP Is patient prescribed a controlled substance at d/c from ED?: No Referrals: Marco Zamora MD [Primary Care Provider] - 1-2 days Time of Disposition: 13:30
[2022-02-09 11:28] LABS: Basophils # (A) 0.1 k/uL (0-0.2); Basophils % (A) 1 %; Eosinophils # (A) 0.3 k/uL (0-0.7); Eosinophils % (A) 2 %; HCT 42.6 % (39.0-53.0); HGB 14.2 gm/dL (13.0-17.5); Lymphocytes # (A) 1.2 k/uL (1.0-4.8); Lymphocytes % (A) 9 %; MCH 31.7 pg (25.0-35.0); MCHC 33.3 g/dL (31.0-37.0); Mean Platelet Volume 6.4; Monocytes # (A) 0.9 k/uL (0-1.0); Monocytes % (A) 6 %; Neutrophils # (A) 11.6 k/uL (1.3-7.7); Neutrophils % (A) 81 %; Platelet Count 303 k/uL (150-450); RBC 4.48 m/uL (4.30-5.90); WBC 14.2 k/uL (3.8-10.6)
[2022-02-09 11:40] LABS: INR 0.9 (<1.2); Partial Thromboplastin Time 22.2 sec (22.0-30.0); Prothrombin Time 9.8 sec (9.0-12.0)
[2022-02-09 11:48] LABS: ALT 15 U/L (4-49); AST 21 U/L (17-59); African American GFR (CKD) >90 (>60 ml/min/1.73 sqM); Albumin 3.7 g/dL (3.5-5.0); Alkaline Phosphatase 65 U/L (38-126); Anion Gap 5 mmol/L; Blood Urea Nitrogen 18 mg/dL (9-20); Calcium 8.5 mg/dL (8.4-10.2); Carbon Dioxide 28 mmol/L (22-30); Chloride 104 mmol/L (98-107); Glucose 132 mg/dL (74-99); Non-African American GFR(CKD) >90 (>60 ml/min/1.73 sqM); Potassium 3.8 mmol/L (3.5-5.1); Sodium 137 mmol/L (137-145); Total Bilirubin 0.6 mg/dL (0.2-1.3); Total Protein 6.3 g/dL (6.3-8.2)
--- NOTE | 2022-02-09 12:03 | XR ---
EXAMINATION TYPE: XR chest 2V DATE OF EXAM: 02/09/2022 COMPARISON: 02/04/2022 HISTORY: 61-year-old male with fever and worsening shortness of breath TECHNIQUE: AP and lateral views FINDINGS: Heart upper limits of normal size. Interstitial prominence is unchanged. Developing focal opacity rig ht lower lung. Limited due to large patient body habitus. No pleural effusion. IMPRESSION: Findings suggest developing right middle lobe pneumonia.
[2022-02-09] MEDS ORDERED: ALBUTEROL HFA INHALER INHALATION STA (12:27)
[2022-02-09] MEDS ORDERED: IPRATROPIUM-ALBUTEROL 3 ML NEB INHALATION PRN (13:33)
[2022-02-09] MEDS ORDERED: methylPREDNISolone SOD SUCCI 125 MG/2 ML VIAL IV STA (13:33)
[2022-02-09] MEDS: ZINC SULFATE 220 MG CAP PO SCH (13:49)
[2022-02-09] MEDS: ASCORBIC ACID 500 MG TAB PO SCH ×2 (13:49→20:42)
[2022-02-09] MEDS: CHOLECALCIFEROL 125 MCG (5000 IU) TABLET PO SCH (13:49)
[2022-02-09] MEDS ORDERED: ALBUTEROL HFA INHALER INHALATION PRN (14:31)
[2022-02-09] MEDS ORDERED: IPRATROPIUM-ALBUTEROL 3 ML NEB INHALATION SCH (16:00)
[2022-02-09] MEDS: ALBUTEROL HFA INHALER INHALATION SCH ×2 (16:05→19:33)
[2022-02-09] MEDS ORDERED: ACETAMINOPHEN TAB 500 MG TAB PO PRN (16:08)
[2022-02-09 16:10] LABS: Appearance,Urine Clear (Clear); Bilirubin,Urine Negative (Negative); Blood,Urine Negative (Negative); Color,Urine Yellow; Glucose,Urine (UA) Negative (Negative); Ketones,Urine Negative (Negative); Leukocyte Esterase,Urine Negative (Negative); Nitrite,Urine Negative (Negative); Protein,Urine Negative (Negative); Specific Gravity,Urine 1.027 (1.001-1.035); Urobilinogen,Urine <2.0 mg/dL (<2.0)
[2022-02-09 16:39] LABS: Glucose,Whole Blood 192 mg/dL (70-110)
[2022-02-09] MEDS: INSULIN ASPART (NovoLOG) 100 UNIT/ML VIAL SQ SCH ×2 (17:23→20:58)
[2022-02-09] MEDS: methylPREDNISolone SOD SUCCI 125 MG/2 ML VIAL IV SCH ×2 (17:41→23:23)
[2022-02-09 20:24] LABS: Glucose,Whole Blood 234 mg/dL (70-110)
[2022-02-09] MEDS: FAMOTIDINE 20 MG TAB PO SCH (20:42)
[2022-02-09] MEDS: METOPROLOL TARTRATE 25 MG TAB PO SCH (20:42)
[2022-02-09] MEDS: DOXYCYCLINE 100 MG CAP PO SCH (20:58)
--- NOTE | 2022-02-09 23:02 | P.HPIM ---
History of Present Illness H&P Date: 02/09/22 Chief Complaint: Shortness of breath Patient is a 61-year-old male with a known history of COPD, hypertension, hyperlipidemia, diabetes type 2 [id number], osteoarthritis, previous history of smoking and morbid obesity presents to ER with complaints of worsening shortness of breath for the past 2 days. He has been having symptoms for the past 2 weeks. Patient was admitted to hospital on 02/05/2022 due to acute COPD exacerbation. On admission patient was febrile with T-max 102.1, pulse 128 respiration 28 and pulse ox 94% on 3 L oxygen via nasal cannula. Denied any chest pain. No nausea vomiting or abdominal pain or diarrhea. Denied any dysuria or hematuria. No hematemesis or melena. Laboratory data showed WBC 14.2 hemoglobin 14.2 and platelets 303 Sodium 137 potassium 3.8 chloride 104 bicarb is 28 BUN 18 and creatinine 0.8 and blood sugar is 132 lactic acid 1.0, D-dimer 0.59 AST 21 ALT 59 alk phos 65 albumin 3.7 procalcitonin level is 0.08 Coronavirus PCR detected. Chest x-ray showed findings suggest developing a right middle lobe pneumonia. EKG showed sinus tachycardia Review of Systems Constitutional: Patient denies any fever or chills . No generalized weakness or weight loss. Abdomen: Patient denied nausea vomiting and diarrhea and abdominal pain. Cardiovascular: Patient denies any chest pain or short of breath no palpitations. Respiratory: Patient does have cough without sputum production. Shortness of breath. Neurologic: Patient denied any numbness or tingling headache. Musculoskeletal: Patient denies any complaints of joint swelling or deformity. Skin: Negative Psychiatric: Negative Endocrine: No heat or cold intolerance. No recent weight gain. Genitourinary: No dysuria or hematuria. All other 14 point ROS negative except the above Past Medical History Past Medical History: Asthma, Diabetes Mellitus, Hyperlipidemia, Hypertension, Osteoarthritis (OA) Additional Past Medical History / Comment(s): Persistent asthma, NIDDM II- arthritis R knee, History of Any Multi-Drug Resistant Organisms: None Reported Past Surgical History: Hernia Repair Additional Past Surgical History / Comment(s): Umbilical hernia repair Past Anesthesia/Blood Transfusion Reactions: Motion Sickness Past Psychological History: No Psychological Hx Reported Smoking Status: Former smoker Past Alcohol Use History: None Reported Past Drug Use History: None Reported - Past Family History Mother History Unknown: Yes Family Medical History: Cancer Additional Family Medical History / Comment(s): Mother of ovarian cancer at the age of 78yrs. Father History Unknown: Yes Family Medical History: GI Bleed Additional Family Medical History / Comment(s): Father around age 50 from a bleeding ulcer. Brother(s) Family Medical History: No Reported History Additional Family Medical History / Comment(s): The patient has 2 brothers and one from pneumonia at age 59, 1 is alive with history of bariatric surgery. Sister(s) Family Medical History: No Reported History Additional Family Medical History / Comment(s): Patient has 2 sisters and one has history of gallbladder disease. Daughter(s) Family Medical History: Unable to Obtain Additional Family Medical History / Comment(s): Patient has one daughter with no major medical problems. Son(s) Additional Family Medical History / Comment(s): Patient has 2 sons and one has hypertension. Medications and Allergies Home Medications Medication Instructions Recorded Confirmed Type Montelukast Sodium [Singulair] 10 mg PO DAILY 05/18/18 02/09/22 History Albuterol Nebulized [Ventolin 2.5 mg INHALATION RT-Q6H 10/15/19 02/09/22 History Nebulized] lisinopriL [Prinivil] 20 mg PO DAILY@1400 03/09/20 02/09/22 History Fluticasone Propionate [Flovent 2 puff INHALATION RT-BID 06/16/20 02/09/22 History Hfa 220 mcg] Albuterol Inhaler [Ventolin Hfa 2 puff INHALATION RT-QID PRN 02/05/22 02/09/22 History Inhaler] Azithromycin [Zithromax] 500 mg PO DAILY 4 Days #4 tab 02/05/22 02/09/22 Rx Famotidine [Pepcid] 20 mg PO BID #60 tab 02/05/22 02/09/22 Rx Ipratropium-Albuterol Nebulize 3 ml INHALATION RT-QID PRN #20 each 02/05/22 02/09/22 Rx [Duoneb 0.5 mg-3 mg/3 ml Soln] Metoprolol Tartrate [Lopressor] 25 mg PO BID #60 tab 02/05/22 02/09/22 Rx glipiZIDE [Glucotrol] 2.5 mg PO AC-BID 14 Days #28 tablet 02/05/22 02/09/22 Rx metFORMIN HCL [Glucophage] 500 mg PO BID@0800,1400 #60 tab 02/05/22 02/09/22 Rx predniSONE See Taper PO DAILY 02/09/22 02/09/22 History Allergies Allergy/AdvReac Type Severity Reaction Status Date / Time Bhtcqxl-SMU-PoX Reductase AdvReac MUSCLE PAIN Verified 02/09/22 12:02 Inhibitor [Oyqtdsa-Owr-Tak Reductase Inhibitor] Physical Exam Vitals: Vital Signs Temp Pulse Resp BP Pulse Ox 02/09/22 15:47 99 F 94 17 136/76 96 02/09/22 13:20 99.5 F 107 H 16 114/77 94 L 02/09/22 11:40 17 02/09/22 10:53 102.1 F H 02/09/22 10:41 101 F H 128 H 28 H 128/67 94 L Intake and Output 02/09/22 02/09/22 02/09/22 06:59 14:59 22:59 Other: Weight 158.757 kg PHYSICAL EXAMINATION: Patient is lying in the bed comfortably, mild acute distress, awake alert and oriented. Morbidly obese.. HEENT: Normocephalic. Neck is supple. Pupils reactive. Nostrils clear. Oral cavity is moist. Neck reveals no JVD, carotid bruits, or thyromegaly. CHEST EXAMINATION: Trachea is central. Symmetrical expansion. Bilateral diffuse wheezing and rhonchi. CARDIAC: Normal S1, S2 with no gallops. No murmurs ABDOMEN: Soft. Bowel sounds normal. No organomegaly. No abdominal bruits. Extremities: reveal no edema. No clubbing or cyanosis Neurologically awake, alert, oriented x3 with well-coordinated movements. No f ocal deficits noted Skin: No rash or skin lesions. Psychiatric: Coperative. Nonsuicidal Musculoskeletal: No joint swelling or deformity. Normal range of motion. Results CBC & Chem 7: 02/09/22 11:06 02/10/22 08:10 Labs: Abnormal Lab Results - Last 24 Hours (Table) 02/09/22 02/09/22 02/09/22 Range/Units 11:06 11:06 11:06 WBC 14.2 H (3.8-10.6) k/uL Neutrophils # 11.6 H (1.3-7.7) k/uL Glucose 132 H (74-99) mg/dL Coronavirus (PCR) Detected A (Not Detectd) Thrombosis Risk Factor Assmnt - DVT/VTE Prophylaxis DVT/VTE Prophylaxis: Pharmacologic Prophylaxis ordered Assessment and Plan Assessment: Worsening shortness of breath due to acute COPD exacerbation Acute COVID-19 infection. Patient is not vaccinated. History of asthma exacerbation requiring intubation. Diabetes type 2 [id number] Prior history of COVID-19 infection requiring prolonged oxygen supplementation. Hypertension Hyperlipidemia Osteoarthritis Prior history of smoking Morbid obesity with BMI 51.7 DVT prophylaxis with Lovenox subcu Plan: Patient will be continued on oxygen supplementation. Started on IV Solu-Medrol 60 mg every 6 hourly and Lovenox for DVT prophylaxis. Continue with insulin sliding scale for better blood sugar control. Continue with duo nebs and home medications. Started on empiric antibiotics in the form of doxycycline. Follow-up closely. Patient was offered to give monoclonal antibodies. Prognosis is guarded at this time. Time with Patient: Greater than 30
[2022-02-10] MEDS: methylPREDNISolone SOD SUCCI 125 MG/2 ML VIAL IV SCH ×3 (05:09→17:33)
[2022-02-10] MEDS: ASCORBIC ACID 500 MG TAB PO SCH ×2 (07:22→22:12)
[2022-02-10] MEDS: ZINC SULFATE 220 MG CAP PO SCH (07:22)
[2022-02-10] MEDS: MONTELUKAST 10 MG TAB PO SCH (07:22)
[2022-02-10] MEDS: FAMOTIDINE 20 MG TAB PO SCH ×2 (07:22→22:12)
[2022-02-10] MEDS: CHOLECALCIFEROL 125 MCG (5000 IU) TABLET PO SCH (07:23)
[2022-02-10] MEDS: METOPROLOL TARTRATE 25 MG TAB PO SCH ×2 (07:23→22:12)
[2022-02-10] MEDS: ENOXAPARIN 40 MG/0.4 ML SYRINGE SQ SCH (07:23)
[2022-02-10] MEDS: DOXYCYCLINE 100 MG CAP PO SCH ×2 (07:24→22:11)
[2022-02-10 07:41] LABS: Glucose,Whole Blood 222 mg/dL (70-110)
[2022-02-10] MEDS: ALBUTEROL HFA INHALER INHALATION SCH ×4 (08:34→19:59)
[2022-02-10] MEDS: TIOTROPIUM 2.5 MCG INHALER INHALATION SCH (08:40)
[2022-02-10] MEDS: INSULIN ASPART (NovoLOG) 100 UNIT/ML VIAL SQ SCH ×4 (09:18→22:12)
[2022-02-10 11:10] LABS: Glucose,Whole Blood 239 mg/dL (70-110)
[2022-02-10 11:56] LABS: Albumin 3.8 g/dL (3.8-4.9); Albumin/Globulin Ratio 1.65 (1.60-3.17); Anion Gap 11.8 mmol/L (10.00-18.00); BUN/Creat Ratio 24.75 Ratio (12.00-20.00); Blood Urea Nitrogen 19.8 mg/dL (9.0-27.0); C Reactive Protein 10.6 mg/dL (0.00-0.80); Calcium 8.8 mg/dL (8.7-10.3); Carbon Dioxide 26.2 mmol/L (20.0-27.5); Globulin 2.3 g/dL (1.6-3.3); Non-African American GFR(CKD) 95.7 (60.0-200.0); Potassium 4.5 mmol/L (3.5-5.5); Total Bilirubin 0.3 mg/dL (0.30-1.20); Total Protein 6.1 g/dL (6.2-8.2)
--- NOTE | 2022-02-10 12:38 | P.CNPUL ---
History of Present Illness Consult date: 02/10/22 Requesting physician: Emerson Lazo Reason for consult: dyspnea, COPD, abnormal CXR/CT Chief complaint: Shortness of breath, cough congestion History of present illness: This is a pleasant morbidly obese 61-year-old male patient with a known history of hyperlipidemia, hypertension, diabetes mellitus, chronic bronchial asthma, former smoker. He was hospitalized in November 2020 for acute COVID-19 19 pneumonia. He follows with Dr. PATIENCE Griffith in the outpatient setting. He is oxygen dependent normally on 3 L/m per nasal cannula. He was recently discharged from here on 02/05/2022 for COPD exacerbation. At that time he was negative for CoVID. He has not been vaccinated. He presented back to the emergency room yesterday with worsening shortness of breath cough and congestion for the past 2-3 days. He now tests positive for COVID-19. Chest x-ray reveals developing focal opacity in the right lower lobe compared to 02/04/2022. Limited study due to large body habitus. White count 14.2. Hemoglobin 14.2. Platelets 303. Lymphocytes 1.2. D-dimer 0.59. Sodium 137. Potassium 4.5. BUN 20. Creatinine 0.8. Glucose 294. AST 13. ALT 16. C-reactive protein 10.6. LDH 152. Pro-calcitonin 0.08. Influenza screen negative. He's been initiated on empiric antibiotics in the form of Vibramycin, IV Solu-Medrol, bronchodilators, vitamin supplements. Lovenox for DVT prophylaxis. He is seen on the regular medical floor. He is resting fairly comfortably in bed. Awake and alert in no acute distress. O2 saturations at 98% on 3 L nasal cannula. He is afebrile. Hemodynamically stable. Somewhat dyspneic with minimal conversation. Dyspneic with exertion. Review of Systems REVIEW OF SYSTEMS: CONSTITUTIONAL: Denies any recent significant weight loss or weight gain. EYES: Denies change in vision. EARS, NOSE, MOUTH, THROAT: Denies headaches, denies sore throat. CARDIOVASCULAR: Denies chest pain, palpitations or syncopal episodes. RESPIRATORY: Positive for shortness of breath, cough, congestion no hemoptysis. GASTROINTESTINAL: Denies change in appetite, denies abdominal pain GENITOURINARY: Denies hematuria, denies infections. MUSKULOSKELETAL: Denies pain, denies swelling. INTEGUMENTARY: Denies rash, denies eczema. NEUROLOGICAL: Denies recent memory loss, no recent seizure activity. PSYCHIATRIC: Denies anxiety, denies depression. HEMATOLOGIC/LYMPHATIC: Denies anemia, denies enlarged lymph nodes. Past Medical History Past Medical History: Asthma, Diabetes Mellitus, Hyperlipidemia, Hypertension, O steoarthritis (OA) Additional Past Medical History / Comment(s): Persistent asthma, NIDDM II- arthritis R knee, History of Any Multi-Drug Resistant Organisms: None Reported Past Surgical History: Hernia Repair Additional Past Surgical History / Comment(s): Umbilical hernia repair Past Anesthesia/Blood Transfusion Reactions: Motion Sickness Past Psychological History: No Psychological Hx Reported Smoking Status: Former smoker Past Alcohol Use History: None Reported Past Drug Use History: None Reported - Past Family History Mother History Unknown: Yes Family Medical History: Cancer Additional Family Medical History / Comment(s): Mother of ovarian cancer at the age of 78yrs. Father History Unknown: Yes Family Medical History: GI Bleed Additional Family Medical History / Comment(s): Father around age 50 from a bleeding ulcer. Brother(s) Family Medical History: No Reported History Additional Family Medical History / Comment(s): The patient has 2 brothers and one from pneumonia at age 59, 1 is alive with history of bariatric surgery. Sister(s) Family Medical History: No Reported History Additional Family Medical History / Comment(s): Patient has 2 sisters and one has history of gallbladder disease. Daughter(s) Family Medical History: Unable to Obtain Additional Family Medical History / Comment(s): Patient has one daughter with no major medical problems. Son(s) Additional Family Medical History / Comment(s): Patient has 2 sons and one has hypertension. Medications and Allergies Home Medications Medication Instructions Recorded Confirmed Type Montelukast Sodium [Singulair] 10 mg PO DAILY 05/18/18 02/09/22 History Albuterol Nebulized [Ventolin 2.5 mg INHALATION RT-Q6H 10/15/19 02/09/22 History Nebulized] lisinopriL [Prinivil] 20 mg PO DAILY@1400 03/09/20 02/09/22 History Fluticasone Propionate [Flovent 2 puff INHALATION RT-BID 06/16/20 02/09/22 History Hfa 220 mcg] Albuterol Inhaler [Ventolin Hfa 2 puff INHALATION RT-QID PRN 02/05/22 02/09/22 History Inhaler] Azithromycin [Zithromax] 500 mg PO DAILY 4 Days #4 tab 02/05/22 02/09/22 Rx Famotidine [Pepcid] 20 mg PO BID #60 tab 02/05/22 02/09/22 Rx Ipratropium-Albuterol Nebulize 3 ml INHALATION RT-QID PRN #20 each 02/05/22 02/09/22 Rx [Duoneb 0.5 mg-3 mg/3 ml Soln] Metoprolol Tartrate [Lopressor] 25 mg PO BID #60 tab 02/05/22 02/09/22 Rx glipiZIDE [Glucotrol] 2.5 mg PO AC-BID 14 Days #28 tablet 02/05/22 02/09/22 Rx metFORMIN HCL [Glucophage] 500 mg PO BID@0800,1400 #60 tab 02/05/22 02/09/22 Rx predniSONE See Taper PO DAILY 02/09/22 02/09/22 History Allergies Allergy/AdvReac Type Severity Reaction Status Date / Time Eghvqqx-TYW-XsK Reductase AdvReac MUSCLE PAIN Verified 02/09/22 12:02 Inhibitor [Ydqrtpx-Fhi-Pgp Reductase Inhibitor] Physical Exam Vitals: Vital Signs Temp Pulse Pulse Resp BP BP Pulse Ox 02/10/22 08:34 98 02/10/22 07:56 98.7 F 87 17 126/74 96 02/10/22 05:09 98.7 F 79 20 132/83 96 02/10/22 01:51 98.7 F 82 18 144/88 98 02/09/22 20:20 93 20 139/89 95 02/09/22 20:00 93 20 02/09/22 17:23 99.5 F 85 19 138/89 95 02/09/22 16:41 99.5 F 89 19 138/89 95 02/09/22 15:47 99 F 94 17 136/76 96 02/09/22 13:20 99.5 F 107 H 16 114/77 94 L Intake and Output 02/09/22 02/10/22 02/10/22 22:59 06:59 14:59 Output Total 625 Balance -625 Output: Urine 625 Other: Voiding Method Toilet Toilet Urinal Urinal # Voids 1 2 GENERAL EXAM: Alert, morbidly obese, pleasant 61-year-old male, on 3 L nasal cannula, comfortable in no apparent distress. HEAD: Normocephalic. EYES: Normal reaction of pupils, equal size. NOSE: Clear with pink turbinates. THROAT: No erythema or exudates. NECK: No masses, no JVD. CHEST: No chest wall deformity. LUNGS: Equal air entry with bilateral end expiratory wheeze, diminished. CVS: S1 and S2 normal with no audible murmur, regular rhythm. ABDOMEN: No hepatosplenomegaly, normal bowel sounds, no guarding or rigidity. SPINE: No scoliosis or deformity SKIN: No rashes CENTRAL NERVOUS SYSTEM: No focal deficits, tone is normal in all 4 extremities. EXTREMITIES: There is no peripheral edema. No clubbing, no cyanosis. Peripheral pulses are intact. Results - Laboratory Findings CBC and BMP: 02/09/22 11:06 02/10/22 08:10 PT/INR, D-dimer PT 9.8 sec (9.0-12.0) 02/09/22 11:06 INR 0.9 (<1.2) 02/09/22 11:06 D-Dimer 0.59 mg/L FEU (<0.60) 02/09/22 18:57 Abnormal lab findings: Abnormal Labs 02/09/22 02/09/22 02/09/22 11:06 11:06 11:06 WBC 14.2 H Neutrophils # 11.6 H BUN/Creatinine Ratio Glucose 132 H POC Glucose (mg/dL) AST C-Reactive Protein Total Protein Coronavirus (PCR) Detected A 02/09/22 02/09/22 02/10/22 16:37 20:23 07:40 WBC Neutrophils # BUN/Creatinine Ratio Glucose POC Glucose (mg/dL) 192 H 234 H 222 H AST C-Reactive Protein Total Protein Coronavirus (PCR) 02/10/22 02/10/22 08:10 11:09 WBC Neutrophils # BUN/Creatinine Ratio 24.75 H Glucose 294 H POC Glucose (mg/dL) 239 H AST 13 L C-Reactive Protein 10.60 H Total Protein 6.1 L Coronavirus (PCR) - Diagnostic Findings Chest x-ray: image reviewed Assessment and Plan Assessment: 1 Acute exacerbation of chronic obstructive pulmonary disease complicated by COVID-19 infection. Testing positive on 02/09/2022. Not vaccinated. Starting Remdesivir today. Normal procalcitonin 2 Acute exacerbation of moderate persistent chronic bronchial asthma 3 Recent admission for COPD exacerbation discharge on 02/05/2022. Negative CoVID test on 02/04/2022 4 Hospitalized for COVID-19 pneumonia back in November 2020 5 Former smoker 6 Morbid obesity with a BMI of 52 kg per metered squared 7 Diabetes mellitus 8 Hypertension 9 Hyperlipidemia, ALLERGIC to statins Plan: The patient was seen and evaluated Chest x-ray, labs and medications reviewed Initiated on Remdesivir Continue bronchodilators, steroids, vitamin supplement Discontinue doxycycline, pro-calcitonin normal Lovenox for DVT prophylaxis Follow-up chest x-ray and labs in a.m. We will continue to follow and make further recommendations based on his clinical status I have personally seen and examined the patient, performed the documentation and the assessment and plan as written. Number of minutes spent on the visit: 20.
[2022-02-10] MEDS ORDERED: REMDESIVIR 200 MG in SODIUM CHLORIDE 0.9% 250 ML IVPB ONE (13:00)
[2022-02-10 16:12] LABS: Glucose,Whole Blood 188 mg/dL (70-110)
[2022-02-10 20:30] LABS: Glucose,Whole Blood 200 mg/dL (70-110)
[2022-02-11] MEDS: methylPREDNISolone SOD SUCCI 125 MG/2 ML VIAL IV SCH ×4 (00:55→16:57)
[2022-02-11 07:03] LABS: Glucose,Whole Blood 180 mg/dL (70-110)
[2022-02-11] MEDS: TIOTROPIUM 2.5 MCG INHALER INHALATION SCH (07:55)
[2022-02-11] MEDS: ALBUTEROL HFA INHALER INHALATION SCH ×4 (07:55→20:08)
--- NOTE | 2022-02-11 08:14 | XR ---
EXAMINATION TYPE: XR chest 1V portable DATE OF EXAM: 02/11/2022 7:12 AM COMPARISON: Chest radiograph from two days prior. CT angiogram 11/24/2020 TECHNIQUE: XR chest 1V portable Portable AP radiograph of the chest.. CLINICAL INDICATION:Male, 61 years old with history of CoVID, COPD; FINDINGS: Lungs/Pleura: Prevascular space opacities within the right lung base. Eventration/high riding right d iaphragm. No evidence of pneumothorax or pleural effusion. Pulmonary vascularity: Unremarkable. Heart/mediastinum: Cardiomediastinal silhouette is unremarkable. Musculoskeletal: No acute osseous pathology. IMPRESSION: Improved airspace opacities in the right lung could be due to patient's respiratory effort. Attention on follow-up imaging and clinical correlation.
[2022-02-11] MEDS: INSULIN ASPART (NovoLOG) 100 UNIT/ML VIAL SQ SCH ×4 (09:02→22:02)
[2022-02-11] MEDS: ZINC SULFATE 220 MG CAP PO SCH (09:03)
[2022-02-11] MEDS: ENOXAPARIN 40 MG/0.4 ML SYRINGE SQ SCH (09:03)
[2022-02-11] MEDS: ASCORBIC ACID 500 MG TAB PO SCH ×2 (09:03→22:02)
[2022-02-11] MEDS: CHOLECALCIFEROL 125 MCG (5000 IU) TABLET PO SCH (09:03)
[2022-02-11] MEDS: MONTELUKAST 10 MG TAB PO SCH (09:03)
[2022-02-11] MEDS: METOPROLOL TARTRATE 25 MG TAB PO SCH ×2 (09:03→22:01)
[2022-02-11] MEDS: DOXYCYCLINE 100 MG CAP PO SCH ×2 (09:03→22:02)
[2022-02-11] MEDS: FAMOTIDINE 20 MG TAB PO SCH ×2 (09:03→22:01)
[2022-02-11 09:30] LABS: Basophils # (A) 0.1 k/uL (0-0.2); Basophils % (A) 0 %; Eosinophils % (A) 0 %; HCT 41.7 % (39.0-53.0); HGB 13.6 gm/dL (13.0-17.5); Lymphocytes # (A) 1.1 k/uL (1.0-4.8); Lymphocytes % (A) 5 %; MCH 31.5 pg (25.0-35.0); MCHC 32.7 g/dL (31.0-37.0); MCV 96.2 fL (80.0-100.0); Mean Platelet Volume 6.6; Monocytes # (A) 0.6 k/uL (0-1.0); Monocytes % (A) 3 %; Neutrophils % (A) 91 %; Platelet Count 317 k/uL (150-450); RBC 4.33 m/uL (4.30-5.90); WBC 20.9 k/uL (3.8-10.6)
[2022-02-11 09:40] LABS: African American GFR (CKD) >90 (>60 ml/min/1.73 sqM); Anion Gap 6 mmol/L; Blood Urea Nitrogen 23 mg/dL (9-20); Calcium 8.6 mg/dL (8.4-10.2); Carbon Dioxide 29 mmol/L (22-30); Chloride 101 mmol/L (98-107); Glucose 212 mg/dL (74-99); LDH 391 U/L (313-618); Non-African American GFR(CKD) >90 (>60 ml/min/1.73 sqM); Potassium 4.4 mmol/L (3.5-5.1); Sodium 136 mmol/L (137-145)
--- NOTE | 2022-02-11 10:07 | P.PN ---
Subjective Progress Note Date: 02/11/22 This is a pleasant morbidly obese 61-year-old male patient with a known history of hyperlipidemia, hypertension, diabetes mellitus, chronic bronchial asthma, former smoker. He was hospitalized in November 2020 for acute COVID-19 19 pneumonia. He follows with Dr. PATIENCE Griffith in the outpatient setting. He is o xygen dependent normally on 3 L/m per nasal cannula. He was recently discharged from here on 02/05/2022 for COPD exacerbation. At that time he was negative for CoVID. He has not been vaccinated. He presented back to the emergency room yesterday with worsening shortness of breath cough and congestion for the past 2-3 days. He now tests positive for COVID-19. Chest x-ray reveals developing focal opacity in the right lower lobe compared to 02/04/2022. Limited study due to large body habitus. White count 14.2. Hemoglobin 14.2. Platelets 303. Lymphocytes 1.2. D-dimer 0.59. Sodium 137. Potassium 4.5. BUN 20. Creatinine 0.8. Glucose 294. AST 13. ALT 16. C-reactive protein 10.6. LDH 152. Pro- calcitonin 0.08. Influenza screen negative. He's been initiated on empiric antibiotics in the form of Vibramycin, IV Solu-Medrol, bronchodilators, vitamin supplements. Lovenox for DVT prophylaxis. He is seen on the regular medical floor. He is resting fairly comfortably in bed. Awake and alert in no acute distress. O2 saturations at 98% on 3 L nasal cannula. He is afebrile. Hemodynamically stable. Somewhat dyspneic with minimal conversation. Dyspneic with exertion. The patient is seen today 02/11/2022 in follow-up on the regular medical floor. He is currently resting comfortably in bed. Awake and alert in no acute distress. He did decline to receive Remdesivir. His lungs are improved today mostly COPD exacerbation. His x-ray shows improved air space opacities in the right lung. Blood culture reveals no growth to date. White count 20.9. Hemoglobin 13.6. D-dimer 0.31. Sodium 136. Potassium 4.4. BUN 23. Creatinine 0.76. LDH 391. Pro calcitonin was 0.08. If he is continued on doxycycline, IV Solu-Medrol, bronchodilators. Remains on vitamin supplements. Lovenox for DVT prophylaxis. Objective - Vital Signs Vital signs: Vital Signs Temp 98.3 F 02/11/22 07:55 Pulse 71 02/11/22 07:55 Resp 19 02/11/22 07:55 BP 136/85 02/11/22 07:55 Pulse Ox 99 02/11/22 07:56 FiO2 Intake & Output 02/10/22 02/11/22 02/11/22 18:59 06:59 18:59 Output Total 1 Balance -1 Output: Stool 1 Other: Voiding Method Toilet Toilet Urinal Urinal # Voids 2 7 - Exam GENERAL EXAM: Alert, morbidly obese, pleasant 61-year-old male, on 3 L nasal cannula, comfortable in no apparent distress. HEAD: Normocephalic. EYES: Normal reaction of pupils, equal size. NOSE: Clear with pink turbinates. THROAT: No erythema or exudates. NECK: No masses, no JVD. CHEST: No chest wall deformity. LUNGS: Equal air entry with bilateral end expiratory wheeze, diminished. CVS: S1 and S2 normal with no audible murmur, regular rhythm. ABDOMEN: No hepatosplenomegaly, normal bowel sounds, no guarding or rigidity. SPINE: No scoliosis or deformity SKIN: No rashes CENTRAL NERVOUS SYSTEM: No focal deficits, tone is normal in all 4 extremities. EXTREMITIES: There is no peripheral edema. No clubbing, no cyanosis. Perip heral pulses are intact. - Labs CBC & Chem 7: 02/11/22 08:39 02/11/22 08:39 Labs: Abnormal Lab Results - Last 24 Hours (Table) 02/10/22 02/10/22 02/10/22 Range/Units 08:10 11:09 16:10 WBC (3.8-10.6) k/uL Neutrophils # (1.3-7.7) k/uL Sodium (137-145) mmol/L BUN (9-20) mg/dL BUN/Creatinine Ratio 24.75 H (12.00-20.00) Ratio Glucose 294 H (70-110) mg/dL POC Glucose (mg/dL) 239 H 188 H (70-110) mg/dL AST 13 L (14-35) U/L C-Reactive Protein 10.60 H (0.00-0.80) mg/dL Total Protein 6.1 L (6.2-8.2) g/dL 02/10/22 02/11/22 02/11/22 Range/Units 20:28 07:02 08:39 WBC (3.8-10.6) k/uL Neutrophils # (1.3-7.7) k/uL Sodium 136 L (137-145) mmol/L BUN 23 H (9-20) mg/dL BUN/Creatinine Ratio (12.00-20.00) Ratio Glucose 212 H (70-110) mg/dL POC Glucose (mg/dL) 200 H 180 H (70-110) mg/dL AST (14-35) U/L C-Reactive Protein (0.00-0.80) mg/dL Total Protein (6.2-8.2) g/dL 02/11/22 Range/Units 08:39 WBC 20.9 H (3.8-10.6) k/uL Neutrophils # 19.0 H (1.3-7.7) k/uL Sodium (137-145) mmol/L BUN (9-20) mg/dL BUN/Creatinine Ratio (12.00-20.00) Ratio Glucose (70-110) mg/dL POC Glucose (mg/dL) (70-110) mg/dL AST (14-35) U/L C-Reactive Protein (0.00-0.80) mg/dL Total Protein (6.2-8.2) g/dL Microbiology - Last 24 Hours (Table) 02/09/22 11:45 Blood Culture - Preliminary Blood No Growth after 24 hours 02/09/22 12:04 Blood Culture - Preliminary Blood No Growth after 24 hours Assessment and Plan Assessment: 1 Acute exacerbation of chronic obstructive pulmonary disease complicated by COVID-19 infection. Testing positive on 02/09/2022. Not vaccinated. Declined Remdesivir. Normal procalcitonin 2 Acute exacerbation of moderate persistent chronic bronchial asthma 3 Recent admission for COPD exacerbation discharge on 02/05/2022. Negative CoVID test on 02/04/2022 4 Hospitalized for COVID-19 pneumonia back in November 2020 5 Former smoker 6 Morbid obesity with a BMI of 52 kg per metered squared 7 Diabetes mellitus 8 Hypertension 9 Hyperlipidemia, ALLERGIC to statins Plan: The patient was seen and evaluated Chest x-ray, labs and medications reviewed Declined Remdesivir Continue bronchodilators, steroids, vitamin supplement Lovenox for DVT prophylaxis Probable home in the a.m. We will continue to follow I have personally seen and examined the patient, performed the documentation and the assessment and plan as written. Number of minutes spent on the visit: 10.
[2022-02-11 11:54] LABS: Glucose,Whole Blood 193 mg/dL (70-110)
[2022-02-11] MEDS ORDERED: REMDESIVIR 100 MG in SODIUM CHLORIDE 0.9% 250 ML IVPB SCH (12:00)
[2022-02-11 17:12] LABS: Glucose,Whole Blood 169 mg/dL (70-110)
[2022-02-11 21:36] LABS: Glucose,Whole Blood 196 mg/dL (70-110)
[2022-02-12] MEDS: methylPREDNISolone SOD SUCCI 125 MG/2 ML VIAL IV SCH ×3 (01:04→12:19)
--- NOTE | 2022-02-12 01:30 | P.PN ---
Subjective Progress Note Date: 02/10/22 Patient is a 61-year-old male with a known history of COPD, hypertension, hyperlipidemia, diabetes type 2 [id number], osteoarthritis, previous history of smoking and morbid obesity presents to ER with complaints of worsening shortness of breath for the past 2 days. He has been having symptoms for the past 2 weeks. Patient was admitted to hospital on 02/05/2022 due to acute COPD exacerbation. On admission patient was febrile with T-max 102.1, pulse 128 respiration 28 and pulse ox 94% on 3 L oxygen via nasal cannula. Denied any chest pain. No nausea vomiting or abdominal pain or diarrhea. Denied any dysuria or hematuria. No hematemesis or melena. Laboratory data showed WBC 14.2 hemoglobin 14.2 and platelets 303 Sodium 137 potassium 3.8 chloride 104 bicarb is 28 BUN 18 and creatinine 0.8 and blood sugar is 132 lactic acid 1.0, D-dimer 0.59 AST 21 ALT 59 alk phos 65 albumin 3.7 procalcitonin level is 0.08 Coronavirus PCR detected. Chest x-ray showed findings suggest developing a right middle lobe pneumonia. EKG showed sinus tachycardia 02/10/2022 Patient was admitted to hospital due to acute COPD exacerbation likely precipitated COVID-19 infection. Patient is having shortness of breath but improved compared yesterday. No complaints of chest pain. No fever no chills. No nausea or vomiting abdominal pain or diarrhea. Patient is being current on IV steroids and duo nebs. Currently 2 to 3 L oxygen via nasal cannula. Pulmonary is on board. Laboratory test showed sodium 137 potassium 4.5 chloride 99 bicarb is 26.2 BUN 19.8 and creatinine 0.80 blood sugar is 294. CRP 10.6 and LDH 152. Pulmonary is on board. Current medications reviewed. Objective - Vital Signs Vital signs: Vital Signs Temp 98.0 F 02/10/22 14:00 Pulse 68 02/10/22 14:00 Resp 20 02/10/22 14:00 BP 141/84 02/10/22 14:00 Pulse Ox 98 02/10/22 14:00 FiO2 Intake & Output 02/09/22 02/10/22 02/10/22 18:59 06:59 18:59 Output Total 625 Balance -625 Weight 158.757 kg Output: Urine 625 Other: Voiding Method Toilet Toilet Urinal Urinal # Voids 1 2 - Exam PHYSICAL EXAMINATION: Patient is lying in the bed comfortably, mild acute distress, awake alert and oriented. Morbidly obese.. HEENT: Normocephalic. Neck is supple. Pupils reactive. Nostrils clear. Oral cavity is moist. Neck reveals no JVD, carotid bruits, or thyromegaly. CHEST EXAMINATION: Trachea is central. Symmetrical expansion. Bilateral wheezing and scattered rhonchi. CARDIAC: Normal S1, S2 with no gallops. No murmurs ABDOMEN: Soft. Bowel sounds normal. No organomegaly. No abdominal bruits. Extremities: reveal no edema. No clubbing or cyanosis Neurologically awake, alert, oriented x3 with well-coordinated movements. No focal deficits noted Skin: No rash or skin lesions. Psychiatric: Coperative. Nonsuicidal Musculoskeletal: No joint swelling or deformity. Normal range of motion. - Labs CBC & Chem 7: 02/11/22 08:39 02/11/22 08:39 Labs: Abnormal Lab Results - Last 24 Hours (Table) 02/09/22 02/09/22 02/10/22 Range/Units 16:37 20:23 07:40 BUN/Creatinine Ratio (12.00-20.00) Ratio Glucose (70-110) mg/dL POC Glucose (mg/dL) 192 H 234 H 222 H (70-110) mg/dL AST (14-35) U/L C-Reactive Protein (0.00-0.80) mg/dL Total Protein (6.2-8.2) g/dL 02/10/22 02/10/22 02/10/22 Range/Units 08:10 11:09 16:10 BUN/Creatinine Ratio 24.75 H (12.00-20.00) Ratio Glucose 294 H (70-110) mg/dL POC Glucose (mg/dL) 239 H 188 H (70-110) mg/dL AST 13 L (14-35) U/L C-Reactive Protein 10.60 H (0.00-0.80) mg/dL Total Protein 6.1 L (6.2-8.2) g/dL Microbiology - Last 24 Hours (Table) 02/09/22 11:45 Blood Culture - Preliminary Blood No Growth after 24 hours 02/09/22 12:04 Blood Culture - Preliminary Blood No Growth after 24 hours Assessment and Plan Assessment: Worsening shortness of breath due to acute COPD exacerbation Acute COVID-19 infection. Patient is not vaccinated. History of asthma exacerbation requiring intubation. Diabetes type 2 [id number] Prior history of COVID-19 infection requiring prolonged oxygen supplementation. Hypertension Hyperlipidemia Osteoarthritis Prior history of smoking Morbid obesity with BMI 51.7 DVT prophylaxis with Lovenox subcu Plan: Patient will be continued on oxygen supplementation. Started on IV Solu-Medrol 60 mg every 6 hourly and Lovenox for DVT prophylaxis. Continue with insulin sliding scale for better blood sugar control. Continue with duo nebs and home medications. Patient was started remdesivir. Started on empiric antibiotics in the form of doxycycline. Follow-up closely. Patient was offered to give monoclonal antibodies. Prognosis is guarded at this time. Time with Patient: Greater than 30
--- NOTE | 2022-02-12 01:32 | P.PN ---
Subjective Progress Note Date: 02/11/22 Patient is a 61-year-old male with a known history of COPD, hypertension, hyperlipidemia, diabetes type 2 [id number], osteoarthritis, previous history of smoking and morbid obesity presents to ER with complaints of worsening shortness of breath for the past 2 days. He has been having symptoms for the past 2 weeks. Patient was admitted to hospital on 02/05/2022 due to acute COPD exacerbation. On admission patient was febrile with T-max 102.1, pulse 128 respiration 28 and pulse ox 94% on 3 L oxygen via nasal cannula. Denied any chest pain. No nausea vomiting or abdominal pain or diarrhea. Denied any dysuria or hematuria. No hematemesis or melena. Laboratory data showed WBC 14.2 hemoglobin 14.2 and platelets 303 Sodium 137 potassium 3.8 chloride 104 bicarb is 28 BUN 18 and creatinine 0.8 and blood sugar is 132 lactic acid 1.0, D-dimer 0.59 AST 21 ALT 59 alk phos 65 albumin 3.7 procalcitonin level is 0.08 Coronavirus PCR detected. Chest x-ray showed findings suggest developing a right middle lobe pneumonia. EKG showed sinus tachycardia 02/10/2022 Patient was admitted to hospital due to acute COPD exacerbation likely precipitated COVID-19 infection. Patient is having shortness of breath but improved compared yesterday. No complaints of chest pain. No fever no chills. No nausea or vomiting abdominal pain or diarrhea. Patient is being current on IV steroids and duo nebs. Currently 2 to 3 L oxygen via nasal cannula. Pulmonary is on board. Laboratory test showed sodium 137 potassium 4.5 chloride 99 bicarb is 26.2 BUN 19.8 and creatinine 0.80 blood sugar is 294. CRP 10.6 and LDH 152. Pulmonary is on board. 02/11/2022 Patient is currently resting in bed. Awake alert and oriented x3. On 3 L oxygen via nasal cannula. No complaints of nausea vomiting abdominal pain or diarrhea. Currently being continued on duo nebs and IV as steroids. Patient refused to get remdesivir. Patient is also not vaccinated. Cultures have been negative. Patient has been continued on antibiotics in the form of doxycycline. Laboratory pressure WBC 20.9 hemoglobin 13.6 and platelets 317 Sodium 136 potassium 4.4 chloride 101 bicarb is 29 BUN 23 and creatinine 0.76 and blood sugar is 212 and CRP 5.0 and LDH 391. Pulmonary is on board. Current medications reviewed. Objective - Vital Signs Vital signs: Vital Signs Temp 98.5 F 02/11/22 18:00 Pulse 71 02/11/22 18:00 Resp 18 02/11/22 18:00 BP 135/80 02/11/22 18:00 Pulse Ox 96 02/11/22 20:09 FiO2 Intake & Output 02/11/22 02/11/22 02/12/22 06:59 18:59 06:59 Other: Voiding Method Toilet Urinal # Voids 7 6 # Bowel Movements 1 - Exam PHYSICAL EXAMINATION: Patient is lying in the bed comfortably, mild acute distress, awake alert and oriented. Morbidly obese.. HEENT: Normocephalic. Neck is supple. Pupils reactive. Nostrils clear. Oral cavity is moist. Neck reveals no JVD, carotid bruits, or thyromegaly. CHEST EXAMINATION: Trachea is central. Symmetrical expansion. Bilateral wheezing and scattered rhonchi. CARDIAC: Normal S1, S2 with no gallops. No murmurs ABDOMEN: Soft. Bowel sounds normal. No organomegaly. No abdominal bruits. Extremities: reveal no edema. No clubbing or cyanosis Neurologically awake, alert, oriented x3 with well-coordinated movements. No focal deficits noted Skin: No rash or skin lesions. Psychiatric: Coperative. Nonsuicidal Musculoskeletal: No joint swelling or deformity. Normal range of motion. - Labs CBC & Chem 7: 02/11/22 08:39 02/11/22 08:39 Labs: Abnormal Lab Results - Last 24 Hours (Table) 02/11/22 02/11/22 02/11/22 Range/Units 07:02 08:39 08:39 WBC 20.9 H (3.8-10.6) k/uL Neutrophils # 19.0 H (1.3-7.7) k/uL Sodium 136 L (137-145) mmol/L BUN 23 H (9-20) mg/dL Glucose 212 H (74-99) mg/dL POC Glucose (mg/dL) 180 H (70-110) mg/dL C-Reactive Protein 5.0 H (<1.0) mg/dL 02/11/22 02/11/22 02/11/22 Range/Units 11:53 17:11 21:34 WBC (3.8-10.6) k/uL Neutrophils # (1.3-7.7) k/uL Sodium (137-145) mmol/L BUN (9-20) mg/dL Glucose (74-99) mg/dL POC Glucose (mg/dL) 193 H 169 H 196 H (70-110) mg/dL C-Reactive Protein (<1.0) mg/dL Microbiology - Last 24 Hours (Table) 02/09/22 12:04 Blood Culture - Preliminary Blood No Growth after 48 hours 02/09/22 11:45 Blood Culture - Preliminary Blood No Growth after 48 hours Assessment and Plan Assessment: Worsening shortness of breath due to acute COPD exacerbation Acute COVID-19 infection. Patient is not vaccinated. History of asthma exacerbation requiring intubation. Diabetes type 2 [id number] Prior history of COVID-19 infection requiring prolonged oxygen supplementation. Hypertension Hyperlipidemia Osteoarthritis Prior history of smoking Morbid obesity with BMI 51.7 DVT prophylaxis with Lovenox subcu Plan: Patient will be continued on oxygen supplementation. Started on IV Solu-Medrol 60 mg every 6 hourly and Lovenox for DVT prophylaxis. Continue with insulin sliding scale for better blood sugar control. Continue with duo nebs and home medications. Patient declined remdesivir. Started on empiric antibiotics in the form of doxycycline. Follow-up closely. Patient was offered to give monoclonal antibodies. Prognosis is guarded at this time. Time with Patient: Greater than 30
[2022-02-12 06:45] VITALS: RESP 16
[2022-02-12] MEDS: ZINC SULFATE 220 MG CAP PO SCH (08:02)
[2022-02-12] MEDS: CHOLECALCIFEROL 125 MCG (5000 IU) TABLET PO SCH (08:02)
[2022-02-12] MEDS: MONTELUKAST 10 MG TAB PO SCH (08:02)
[2022-02-12] MEDS: METOPROLOL TARTRATE 25 MG TAB PO SCH (08:02)
[2022-02-12 08:03] LABS: Glucose,Whole Blood 181 mg/dL (70-110)
[2022-02-12] MEDS: FAMOTIDINE 20 MG TAB PO SCH (08:03)
[2022-02-12] MEDS: DOXYCYCLINE 100 MG CAP PO SCH (08:03)
[2022-02-12] MEDS: ASCORBIC ACID 500 MG TAB PO SCH (08:06)
[2022-02-12] MEDS: ENOXAPARIN 40 MG/0.4 ML SYRINGE SQ SCH (08:07)
[2022-02-12] MEDS: INSULIN ASPART (NovoLOG) 100 UNIT/ML VIAL SQ SCH ×2 (08:07→12:19)
[2022-02-12] MEDS: TIOTROPIUM 2.5 MCG INHALER INHALATION SCH (08:34)
[2022-02-12] MEDS: ALBUTEROL HFA INHALER INHALATION SCH ×3 (08:34→15:22)
[2022-02-12 09:06] LABS: Anion Gap 7.3 mmol/L (10.00-18.00); Blood Urea Nitrogen 21.6 mg/dL (9.0-27.0); Calcium 8.8 mg/dL (8.7-10.3); Carbon Dioxide 29.7 mmol/L (20.0-27.5); Non-African American GFR(CKD) 95.7 (60.0-200.0); Potassium 4.9 mmol/L (3.5-5.5)
[2022-02-12 09:57] LABS: HCT 44.6 % (39.6-50.0); HGB 14.1 g/dL (13.0-17.0); MCH 30.5 pg (27.0-32.0); MCHC 31.6 g/dL (32.0-37.0); MCV 96.5 fL (80.0-97.0); Mean Platelet Volume 9.8 fL (9.5-12.2); NRBC Per 100 WBC 0 /100 WBCS (0.0-0.0); Platelet Count 236 X 10*3/uL (140-440); RBC 4.62 X 10*6/uL (4.40-5.60); RDW 13.2 % (11.5-14.5); WBC 17.69 X 10*3/uL (4.50-10.00)
--- NOTE | 2022-02-12 09:58 | P.PN ---
Subjective Progress Note Date: 02/12/22 This is a pleasant morbidly obese 61-year-old male patient with a known history of hyperlipidemia, hypertension, diabetes mellitus, chronic bronchial asthma, former smoker. He was hospitalized in November 2020 for acute COVID-19 19 pneumonia. He follows with Dr. PATIENCE Griffith in the outpatient setting. He is o xygen dependent normally on 3 L/m per nasal cannula. He was recently discharged from here on 02/05/2022 for COPD exacerbation. At that time he was negative for CoVID. He has not been vaccinated. He presented back to the emergency room yesterday with worsening shortness of breath cough and congestion for the past 2-3 days. He now tests positive for COVID-19. Chest x-ray reveals developing focal opacity in the right lower lobe compared to 02/04/2022. Limited study due to large body habitus. White count 14.2. Hemoglobin 14.2. Platelets 303. Lymphocytes 1.2. D-dimer 0.59. Sodium 137. Potassium 4.5. BUN 20. Creatinine 0.8. Glucose 294. AST 13. ALT 16. C-reactive protein 10.6. LDH 152. Pro- calcitonin 0.08. Influenza screen negative. He's been initiated on empiric antibiotics in the form of Vibramycin, IV Solu-Medrol, bronchodilators, vitamin supplements. Lovenox for DVT prophylaxis. He is seen on the regular medical floor. He is resting fairly comfortably in bed. Awake and alert in no acute distress. O2 saturations at 98% on 3 L nasal cannula. He is afebrile. Hemodynamically stable. Somewhat dyspneic with minimal conversation. Dyspneic with exertion. The patient is seen today 02/11/2022 in follow-up on the regular medical floor. He is currently resting comfortably in bed. Awake and alert in no acute distress. He did decline to receive Remdesivir. His lungs are improved today mostly COPD exacerbation. His x-ray shows improved air space opacities in the right lung. Blood culture reveals no growth to date. White count 20.9. Hemoglobin 13.6. D-dimer 0.31. Sodium 136. Potassium 4.4. BUN 23. Creatinine 0.76. LDH 391. Pro calcitonin was 0.08. If he is continued on doxycycline, IV Solu-Medrol, bronchodilators. Remains on vitamin supplements. Lovenox for DVT prophylaxis. The patient is seen today 02/12/2022 in follow-up on the regular medical floor. He is currently resting comfortably in bed. Awake and alert in no acute distre ss. Feeling back to his baseline. Continue good O2 saturations in the upper 90s on 3 L/m per nasal cannula. He's been afebrile. Blood cultures revealed no growth. Sodium 139. Potassium 4.9. BUN 22. Creatinine 0.8. Glucose 211. He remains on bronchodilators, IV Solu-Medrol. Empiric antibiotics in the form of doxycycline. He declined Remdesivir. Remains on Lovenox for DVT prophylaxis. Vitamin supplements. Objective - Vital Signs Vital signs: Vital Signs Temp 98.2 F 02/12/22 06:00 Pulse 72 02/12/22 06:00 Resp 16 02/12/22 06:00 BP 152/92 02/12/22 06:00 Pulse Ox 98 02/12/22 08:35 FiO2 Intake & Output 02/11/22 02/12/22 02/12/22 18:59 06:59 18:59 Intake Total 450 Output Total 1225 Balance -775 Intake: Oral 450 Output: Urine 1225 Other: Voiding Method Toilet Urinal # Voids 6 # Bowel Movements 1 - Exam GENERAL EXAM: Alert, morbidly obese, 61-year-old male, on 3 L nasal cannula, co mfortable in no apparent distress. HEAD: Normocephalic. EYES: Normal reaction of pupils, equal size. NOSE: Clear with pink turbinates. THROAT: No erythema or exudates. NECK: No masses, no JVD. CHEST: No chest wall deformity. LUNGS: Equal air entry with bilateral end expiratory wheeze, diminished. CVS: S1 and S2 normal with no audible murmur, regular rhythm. ABDOMEN: No hepatosplenomegaly, normal bowel sounds, no guarding or rigidity. SPINE: No scoliosis or deformity SKIN: No rashes CENTRAL NERVOUS SYSTEM: No focal deficits, tone is normal in all 4 extremities. EXTREMITIES: There is no peripheral edema. No clubbing, no cyanosis. Peripheral pulses are intact. - Labs CBC & Chem 7: 02/11/22 08:39 02/12/22 05:02 Labs: Abnormal Lab Results - Last 24 Hours (Table) 0602/11/22 02/11/22 Range/Units 08:39 11:53 17:11 Carbon Dioxide (20.0-27.5) mmol/L Anion Gap (10.00-18.00) mmol/L BUN/Creatinine Ratio (12.00-20.00) Ratio Glucose (70-110) mg/dL POC Glucose (mg/dL) 193 H 169 H (70-110) mg/dL C-Reactive Protein 5.0 H (<1.0) mg/dL 02/11/22 02/12/22 02/12/22 Range/Units 21:34 05:02 07:51 Carbon Dioxide 29.7 H (20.0-27.5) mmol/L Anion Gap 7.30 L (10.00-18.00) mmol/L BUN/Creatinine Ratio 27.00 H (12.00-20.00) Ratio Glucose 211 H (70-110) mg/dL POC Glucose (mg/dL) 196 H 181 H (70-110) mg/dL C-Reactive Protein (<1.0) mg/dL Microbiology - Last 24 Hours (Table) 02/09/22 12:04 Blood Culture - Preliminary Blood No Growth after 48 hours 02/09/22 11:45 Blood Culture - Preliminary Blood No Growth after 48 hours Assessment and Plan Assessment: 1 Acute exacerbation of chronic obstructive pulmonary disease complicated by COVID-19 infection. Testing positive on 02/09/2022. Not vaccinated. Declined Remdesivir. Normal procalcitonin 2 Acute exacerbation of moderate persistent chronic bronchial asthma 3 Recent admission for COPD exacerbation discharge on 02/05/2022. Negative CoVID test on 02/04/2022 4 Hospitalized for COVID-19 pneumonia back in November 2020 5 Former smoker 6 Morbid obesity with a BMI of 52 kg per metered squared 7 Diabetes mellitus 8 Hypertension 9 Hyperlipidemia, ALLERGIC to statins Plan: The patient was seen and evaluated Labs and medications reviewed Cleared for discharge from pulmonary standpoint Complete a prednisone taper starting at 40 mg x 4 days Continue his home oxygen and pulmonary medications Follow-up with his chronic care nurse in 1-2 weeks' I have personally seen and examined the patient, performed the documentation and the assessment and plan as written. Number of minutes spent on the visit: 10.
[2022-02-12 10:39] LABS: Basophils # (A) 0.02 X 10*3/uL (0.00-0.10); Basophils % (A) 0.1 %; Eosinophils # (A) 0.01 X 10*3/uL (0.04-0.35); Eosinophils % (A) 0.1 %; Immature Grans, Automated 3.3 %; Lymphocytes # (A) 1.17 X 10*3/uL (0.90-5.00); Lymphocytes % (A) 6.6 %; Monocytes # (A) 0.86 X 10*3/uL (0.20-1.00); Monocytes % (A) 4.9 %; Neutrophils # (A) 15.04 X 10*3/uL (1.80-7.70); RBC Morphology NORMAL
[2022-02-12 11:34] LABS: Glucose,Whole Blood 193 mg/dL (70-110)
[2022-02-12 14:21] VITALS: BP 146/87; PULSE 73; TEMP 98
--- NOTE | 2022-02-13 09:41 | P.DS ---
Providers Date of admission: 02/09/22 13:33 Expected date of discharge: 02/12/22 Attending physician: Emerson Lazo Consults: 02/09/22 16:10 Consult Physician Routine Consulting Provider: Kaye Bonds Consult Reason/Comments: COPD,COVID Pneumonia Do you want consulting provider notified?: Yes Primary care physician: Marco Zamora Hospital Course: Final diagnosis Worsening shortness of breath due to acute COPD exacerbation Acute COVID-19 infection. Patient is not vaccinated. History of asthma exacerbation requiring intubation. Diabetes type 2 [id number] Prior history of COVID-19 infection requiring prolonged oxygen supplementation. Hypertension Hyperlipidemia Osteoarthritis Prior history of smoking Morbid obesity with BMI 51.7 DVT prophylaxis Discharge disposition Patient is being discharged in a stable condition with guarded prognosis to home. Patient will follow-up with Dr. Zamora in the outpatient setting upon discharge. Patient is to also follow up with pulmonary in the next 2-3 weeks. Patient will continue on oxygen via nasal cannula at 3 L secondary to Covid. Patient will continue on oral doxycycline along with a prednisone taper and vi tamin and zinc supplements on discharge. Total time taken is greater than 35 minutes. Hospital course This is a 61-year-old male was recently admitted to the hospital with worsening shortness of breath for the last 2 days and symptoms have been ongoing for the past 2 weeks and was being closely monitored. Patient was recently admitted and discharged for COPD exacerbation and presented back to the emergency department with fevers and was found to have COVID-19. Chest x-ray also showed a developing right middle lobe pneumonia. Patient was evaluated by pulmonary and will follow-up in the outpatient setting and will continue with albuterol inhaler along with vitamin and zinc supplements, prednisone taper, and oral doxycycline on discharge. Patient requiring 3 L via nasal cannula secondary to COVID-19 and home O2 oxygen is being arranged. Currently no reports of chest pain, worsening shortness of breath, or palpitations. Patient is afebrile. No reports of nausea or vomiting and patient is tolerating diet. Patient will be discharged home today. Her prognosis. On exam vital signs are stable. Cardio S1, S2 are muffled. Respiratory system shows diminished breath sounds at the bases with no wheezing and some scattered rhonchi noted. Abdomen is soft and obese, and nontender. Nervous system shows no focal deficits. Please refer to medication reconciliation sheet for a list of medications. The impression and plan of care has been dictated by Ruthie Victoria, Nurse Practitioner as directed. Dr. Nii MD I have performed a history and examination and MDM of this patient, discussed the same with the dictator, and agree with the dictator's assessment and plan as written ,documented as a scribe. Based on total visit time, I have performed more than 50% of the visit. Patient Condition at Discharge: Stable Plan - Discharge Summary New Discharge Prescriptions: New predniSONE 10 mg PO DIRECTED #30 tab Cholecalciferol [Vitamin D3 (125 Mcg = 5000 Iu)] 125 mcg PO DAILY 30 Days #30 tab Zinc Sulfate [Orazinc] 220 mg PO DAILY 14 Days #14 cap Tiotropium 2.5 Mcg/Puff [Spiriva Respimat 2.5 Mcg] 2 puff INHALATION RT-DAILY 30 Days #1 each Acetaminophen Tab [Tylenol] 500 mg PO Q6HR PRN tab PRN Reason: Fever And/ Or Pain Doxycycline [Vibramycin] 100 mg PO BID 7 Days #14 cap Ascorbic Acid [Vitamin C] 500 mg PO BID 30 Days #60 tab Continue Montelukast Sodium [Singulair] 10 mg PO DAILY Albuterol Nebulized [Ventolin Nebulized] 2.5 mg INHALATION RT-Q6H Fluticasone Propionate [Flovent Hfa 220 mcg] 2 puff INHALATION RT-BID Albuterol Inhaler [Ventolin Hfa Inhaler] 2 puff INHALATION RT-QID PRN PRN Reason: Shortness Of Breath glipiZIDE [Glucotrol] 2.5 mg PO AC-BID 14 Days #28 tablet Metoprolol Tartrate [Lopressor] 25 mg PO BID #60 tab Famotidine [Pepcid] 20 mg PO BID #60 tab Ipratropium-Albuterol Nebulize [Duoneb 0.5 mg-3 mg/3 ml Soln] 3 ml INHALATION RT-QID PRN #20 each PRN Reason: Shortness Of Breath Or Wheezing metFORMIN HCL [Glucophage] 500 mg PO BID@0800,1400 #60 tab Discontinued lisinopriL [Prinivil] 20 mg PO DAILY@1400 Azithromycin [Zithromax] 500 mg PO DAILY 4 Days #4 tab predniSONE See Taper PO DAILY Discharge Medication List Montelukast Sodium [Singulair] 10 mg PO DAILY 05/18/18 [History] Albuterol Nebulized [Ventolin Nebulized] 2.5 mg INHALATION RT-Q6H 10/15/19 [History] Fluticasone Propionate [Flovent Hfa 220 mcg] 2 puff INHALATION RT-BID 06/16/20 [History] Albuterol Inhaler [Ventolin Hfa Inhaler] 2 puff INHALATION RT-QID PRN 02/05/22 [History] Famotidine [Pepcid] 20 mg PO BID #60 tab 02/05/22 [Rx] Ipratropium-Albuterol Nebulize [Duoneb 0.5 mg-3 mg/3 ml Soln] 3 ml INHALATION RT-QID PRN #20 each 02/05/22 [Rx] Metoprolol Tartrate [Lopressor] 25 mg PO BID #60 tab 02/05/22 [Rx] glipiZIDE [Glucotrol] 2.5 mg PO AC-BID 14 Days #28 tablet 02/05/22 [Rx] metFORMIN HCL [Glucophage] 500 mg PO BID@0800,1400 #60 tab 02/05/22 [Rx] Acetaminophen Tab [Tylenol] 500 mg PO Q6HR PRN tab 02/12/22 [Rx] Ascorbic Acid [Vitamin C] 500 mg PO BID 30 Days #60 tab 02/12/22 [Rx] Cholecalciferol [Vitamin D3 (125 Mcg = 5000 Iu)] 125 mcg PO DAILY 30 Days #30 tab 02/12/22 [Rx] Doxycycline [Vibramycin] 100 mg PO BID 7 Days #14 cap 02/12/22 [Rx] Tiotropium 2.5 Mcg/Puff [Spiriva Respimat 2.5 Mcg] 2 puff INHALATION RT-DAILY 30 Days #1 each 02/12/22 [Rx] Zinc Sulfate [Orazinc] 220 mg PO DAILY 14 Days #14 cap 02/12/22 [Rx] predniSONE 10 mg PO DIRECTED #30 tab 02/12/22 [Rx] Follow up Appointment(s)/Referral(s): Kai Mclean DO [Doctor of Osteopathic Medicine] - 03/15/22 9:00 am Marco Zamora MD [Primary Care Provider] - 02/15/22 1:00 pm (This will be a telehealth office will call) Patient Instructions/Handouts: COVID-19 (Coronavirus Disease 2019) (DC) Activity/Diet/Wound Care/Special Instructions: Activity Limited until follow-up Follow-up with primary care provider on discharge Follow-up pulmonary outpatient in 2-3 weeks Continue taking medications as prescribed Continue prednisone taper Continue breathing inhalational treatments and nebulizers Discharge Disposition: HOME SELF-CARE
== END 2022-02-12 16:59 | disposition home or self-care (01) | DRG 177 ==
LOC: EC 10:33 → 4SSUR 13:33
PROVIDERS: ADMIT Internal Medicine; ATTEND Internal Medicine
DX: U07.1 COVID-19 (principal); J12.82 Pneumonia due to coronavirus disease 2019; J44.0 Chronic obstructive pulmonary disease with (acute) lower respiratory infection; J44.1 Chronic obstructive pulmonary disease with (acute) exacerbation; J45.901 Unspecified asthma with (acute) exacerbation; E66.01 Morbid (severe) obesity due to excess calories; Z68.43 Body mass index [BMI] 50.0-59.9, adult; I10 Essential (primary) hypertension; R00.0 Tachycardia, unspecified; Z28.310 Unvaccinated for COVID-19; E11.9 Type 2 diabetes mellitus without complications; E78.5 Hyperlipidemia, unspecified; M17.11 Unilateral primary osteoarthritis, right knee; Z79.4 Long term (current) use of insulin; Z79.51 Long term (current) use of inhaled steroids; Z79.84 Long term (current) use of oral hypoglycemic drugs; Z79.899 Other long term (current) drug therapy; Z80.41 Family history of malignant neoplasm of ovary; Z87.891 Personal history of nicotine dependence; Z88.8 Allergy status to other drugs, medicaments and biological substances; Z99.81 Dependence on supplemental oxygen; Z87.19 Personal history of other diseases of the digestive system
CPT/HCPCS: 36415; 71045; 71046; 80048; 80053; 81003; 83605; 83615; 84145; 85025; 85379; 85610; 85730; 86140; 87040; 87502; 87635; 93005; 94640; 94760; 96374; 99285

== ENCOUNTER 2022-07-15 17:27 | Emergency (ER) | payer OTHER ==
[2022-07-15 17:37] VITALS: TEMP 96.9
--- NOTE | 2022-07-15 18:07 | ED ---
General Adult HPI - General Chief complaint: Chest Pain Stated complaint: chest tightness Time Seen by Provider: 07/15/22 17:44 Source: patient Mode of arrival: ambulatory Limitations: no limitations - History of Present Illness Initial comments: This is a 62-year-old male with a past medical history including COPD and asthma on 3 L of home oxygen as well as hypertension presenting to the emergency department for left-sided chest pain and discomfort. The patient stated that this discomfort in his chest was focused on the left side but did radiate to the right. The patient stated that it did not radiate down the left arm or up the jaw. He did state that his been intermittent since and stated that it is worse with exertion. The patient did state that he felt as if there is legs were also swelling over the last several days. The patient denied any other acute pain or complaints at this time. The patient was concerned about this co ntinued chest discomfort and exertional dyspnea speaking to the emergency department for evaluation. The patient stated that he has never had symptoms like this before. - Related Data Home Medications Medication Instructions Recorded Confirmed RX: Montelukast Sodium [Singulair] 10 mg PO DAILY 05/18/18 02/09/22 RX: Albuterol Nebulized [Ventolin 2.5 mg INHALATION RT-Q6H 10/15/19 02/09/22 Nebulized] RX: Fluticasone Propionate 2 puff INHALATION RT-BID 06/16/20 02/09/22 [Flovent Hfa 220 mcg] RX: Albuterol Inhaler [Ventolin 2 puff INHALATION RT-QID PRN 02/05/22 02/09/22 Hfa Inhaler] Previous Rx's Medication Instructions Recorded RX: Famotidine [Pepcid] 20 mg PO BID #60 tab 02/05/22 RX: Ipratropium-Albuterol Nebulize 3 ml INHALATION RT-QID PRN #20 each 02/05/22 [Duoneb 0.5 mg-3 mg/3 ml Soln] RX: Metoprolol Tartrate [Lopressor] 25 mg PO BID #60 tab 02/05/22 RX: glipiZIDE [Glucotrol] 2.5 mg PO AC-BID 14 Days #28 tablet 02/05/22 RX: metFORMIN HCL [Glucophage] 500 mg PO BID@0800,1400 #60 tab 02/05/22 RX: Acetaminophen Tab [Tylenol] 500 mg PO Q6HR PRN tab 02/12/22 RX: Ascorbic Acid [Vitamin C] 500 mg PO BID 30 Days #60 tab 02/12/22 RX: Cholecalciferol [Vitamin D3 125 mcg PO DAILY 30 Days #30 tab 02/12/22 (125 Mcg = 5000 Iu)] RX: Doxycycline [Vibramycin] 100 mg PO BID 7 Days #14 cap 02/12/22 RX: Tiotropium 2.5 Mcg/Puff 2 puff INHALATION RT-DAILY 30 Days 02/12/22 [Spiriva Respimat 2.5 Mcg] #1 each RX: Zinc Sulfate [Orazinc] 220 mg PO DAILY 14 Days #14 cap 02/12/22 RX: predniSONE 10 mg PO DIRECTED #30 tab 02/12/22 Allergies Allergy/AdvReac Type Severity Reaction Status Date / Time Fkucgtb-ORD-BqF Reductase AdvReac MUSCLE PAIN Verified 07/15/22 17:37 Inhibitor [Dczdsqv-Pum-Wth Reductase Inhibitor] Review of Systems ROS Statement: Those systems with pertinent positive or pertinent negative responses have been documented in the HPI. ROS Other: All systems not noted in ROS Statement are negative. Past Medical History Past Medical History: Asthma, Diabetes Mellitus, Hyperlipidemia, Hypertension, Osteoarthritis (OA) Additional Past Medical History / Comment(s): Persistent asthma, NIDDM II- arthritis R knee, COVID + History of Any Multi-Drug Resistant Organisms: None Reported Past Surgical History: Hernia Repair Additional Past Surgical History / Comment(s): Umbilical hernia repair Past Anesthesia/Blood Transfusion Reactions: Motion Sickness Past Psychological History: No Psychological Hx Reported Smoking Status: Former smoker Past Alcohol Use History: None Reported Past Drug Use History: None Reported - Past Family History Mother History Unknown: Yes Family Medical History: Cancer Additional Family Medical History / Comment(s): Mother of ovarian cancer at the age of 78yrs. Father History Unknown: Yes Family Medical History: GI Bleed Additional Family Medical History / Comment(s): Father around age 50 from a bleeding ulcer. Brother(s) Family Medical History: No Reported History Additional Family Medical History / Comment(s): The patient has 2 brothers and one from pneumonia at age 59, 1 is alive with history of bariatric surgery. Sister(s) Family Medical History: No Reported History Additional Family Medical History / Comment(s): Patient has 2 sisters and one has history of gallbladder disease. Daughter(s) Family Medical History: Unable to Obtain Additional Family Medical History / Comment(s): Patient has one daughter with no major medical problems. Son(s) Additional Family Medical History / Comment(s): Patient has 2 sons and one has hypertension. General Exam Limitations: no limitations General appearance: alert, in no apparent distress, obese Head exam: Present: atraumatic, normocephalic Eye exam: Present: normal appearance, PERRL Pupils: Present: normal accommodation ENT exam: Present: normal exam, normal oropharynx, mucous membranes moist Neck exam: Present: normal inspection, full ROM Respiratory exam: Present: normal lung sounds bilaterally Cardiovascular Exam: Present: regular rate, normal rhythm, normal heart sounds GI/Abdominal exam: Present: soft, distended, normal bowel sounds Extremities exam: Present: normal inspection, full ROM, pedal edema Back exam: Present: normal inspection, full ROM Neurological exam: Present: alert, oriented X3, CN II-XII intact Psychiatric exam: Present: normal affect, normal mood Skin exam: Present: warm, dry Course Vital Signs 07/15/22 07/15/22 17:34 18:37 Temperature 96.9 F L Pulse Rate 91 82 Respiratory 20 18 Rate Blood Pressure 179/96 146/93 O2 Sat by Pulse 98 99 Oximetry EKG Findings - EKG Comments: EKG Findings:: EKG was obtained and was read by myself. EKG showed a rate of 84, W[place] interval 168, QRS duration of 110 and QTC of 385. This EKG showed normal sinus rhythm with no ST segment elevations or depressions noted. Medical Decision Making - Medical Decision Making The patient was seen and evaluated in the emergency department. Physical exam, the patient was resting in bed without any acute distress. Vital signs were stable. Due to the nature the patient's complaints, laboratory workup was obtained as was a chest x-ray and EKG. All laboratory workup was within normal limits. Chest x-ray was also negative. EKG was within normal limits. There is no etiology for the patient's intermittent chest pain. The patient on reevaluation did not have any chest pain and only stated it was worse with exertion. The patient was offered an observation stay in the hospital but did agreed to following up as an outpatient. The patient was also advised to follow-up [facility] department if he had worsening chest pain or shortness of breath. The patient was agreeable to this and all his questions were answered. The patient was discharged home in stable condition. - Lab Data Result diagrams: 07/15/22 18:20 07/15/22 18:20 Lab Results 07/15/22 07/15/22 07/15/22 Range/Units 18:20 18:20 18:20 WBC 6.4 (3.8-10.6) k/uL RBC 4.91 (4.30-5.90) m/uL Hgb 15.6 (13.0-17.5) gm/dL Hct 45.5 (39.0-53.0) % MCV 92.6 (80.0-100.0) fL MCH 31.8 (25.0-35.0) pg MCHC 34.3 (31.0-37.0) g/dL RDW 12.8 (11.5-15.5) % Plt Count 291 (150-450) k/uL MPV 6.9 Neutrophils % 60 % Lymphocytes % 25 % Monocytes % 8 % Eosinophils % 4 % Basophils % 1 % Neutrophils # 3.8 (1.3-7.7) k/uL Lymphocytes # 1.6 (1.0-4.8) k/uL Monocytes # 0.5 (0-1.0) k/uL Eosinophils # 0.2 (0-0.7) k/uL Basophils # 0.1 (0-0.2) k/uL PT (9.0-12.0) sec INR (<1.2) APTT (22.0-30.0) sec Sodium 138 (137-145) mmol/L Potassium 4.2 (3.5-5.1) mmol/L Chloride 104 (98-107) mmol/L Carbon Dioxide 29 (22-30) mmol/L Anion Gap 5 mmol/L BUN 17 (9-20) mg/dL Creatinine 0.70 (0.66-1.25) mg/dL Est GFR (CKD-EPI)AfAm >90 (>60 ml/min/1.73 sqM) Est GFR (CKD-EPI)NonAf >90 (>60 ml/min/1.73 sqM) Glucose 125 H (74-99) mg/dL Calcium 8.9 (8.4-10.2) mg/dL Magnesium 2.0 (1.6-2.3) mg/dL Total Bilirubin 0.4 (0.2-1.3) mg/dL AST 19 (17-59) U/L ALT 15 (4-49) U/L Alkaline Phosphatase 72 (38-126) U/L Troponin I (0.000-0.034) ng/mL NT-Pro-B Natriuret Pep 24 pg/mL Total Protein 6.5 (6.3-8.2) g/dL Albumin 4.1 (3.5-5.0) g/dL 07/15/22 07/15/22 Range/Units 18:20 18:20 WBC (3.8-10.6) k/uL RBC (4.30-5.90) m/uL Hgb (13.0-17.5) gm/dL Hct (39.0-53.0) % MCV (80.0-100.0) fL MCH (25.0-35.0) pg MCHC (31.0-37.0) g/dL RDW (11.5-15.5) % Plt Count (150-450) k/uL MPV Neutrophils % % Lymphocytes % % Monocytes % % Eosinophils % % Basophils % % Neutrophils # (1.3-7.7) k/uL Lymphocytes # (1.0-4.8) k/uL Monocytes # (0-1.0) k/uL Eosinophils # (0-0.7) k/uL Basophils # (0-0.2) k/uL PT 9.8 (9.0-12.0) sec INR 0.9 (<1.2) APTT 24.1 (22.0-30.0) sec Sodium (137-145) mmol/L Potassium (3.5-5.1) mmol/L Chloride (98-107) mmol/L Carbon Dioxide (22-30) mmol/L Anion Gap mmol/L BUN (9-20) mg/dL Creatinine (0.66-1.25) mg/dL Est GFR (CKD-EPI)AfAm (>60 ml/min/1.73 sqM) Est GFR (CKD-EPI)NonAf (>60 ml/min/1.73 sqM) Glucose (74-99) mg/dL Calcium (8.4-10.2) mg/dL Magnesium (1.6-2.3) mg/dL Total Bilirubin (0.2-1.3) mg/dL AST (17-59) U/L ALT (4-49) U/L Alkaline Phosphatase (38-126) U/L Troponin I <0.012 (0.000-0.034) ng/mL NT-Pro-B Natriuret Pep pg/mL Total Protein (6.3-8.2) g/dL Albumin (3.5-5.0) g/dL Disposition Clinical Impression: Chest pain Disposition: HOME SELF-CARE Condition: Stable Instructions (If sedation given, give patient instructions): Chest Pain (ED) Is patient prescribed a controlled substance at d/c from ED?: No Referrals: Marco Zamora MD [Primary Care Provider] - 1-2 days Time of Disposition: 20:05
[2022-07-15 18:38] LABS: Basophils # (A) 0.1 k/uL (0-0.2); Basophils % (A) 1 %; Eosinophils # (A) 0.2 k/uL (0-0.7); Eosinophils % (A) 4 %; HCT 45.5 % (39.0-53.0); HGB 15.6 gm/dL (13.0-17.5); Lymphocytes # (A) 1.6 k/uL (1.0-4.8); Lymphocytes % (A) 25 %; MCH 31.8 pg (25.0-35.0); MCHC 34.3 g/dL (31.0-37.0); MCV 92.6 fL (80.0-100.0); Mean Platelet Volume 6.9; Monocytes # (A) 0.5 k/uL (0-1.0); Monocytes % (A) 8 %; Neutrophils # (A) 3.8 k/uL (1.3-7.7); Neutrophils % (A) 60 %; Platelet Count 291 k/uL (150-450); RBC 4.91 m/uL (4.30-5.90); RDW 12.8 % (11.5-15.5); WBC 6.4 k/uL (3.8-10.6)
--- NOTE | 2022-07-15 18:39 | XR ---
EXAMINATION TYPE: XR chest 2V DATE OF EXAM: 07/15/2022 COMPARISON: 02/11/2022 HISTORY: Altered mental status TECHNIQUE: 2 view FINDINGS: Heart is normal. Lungs are clear of infiltrate. No heart failure. There are no hilar masses . The bony thorax is intact. IMPRESSION: No active cardiopulmonary disease. There is clearing of some infiltrate right lower lobe compared to the old exam.
[2022-07-15 18:47] LABS: INR 0.9 (<1.2); Prothrombin Time 9.8 sec (9.0-12.0)
[2022-07-15 18:48] LABS: Partial Thromboplastin Time 24.1 sec (22.0-30.0)
[2022-07-15 18:50] LABS: ALT 15 U/L (4-49); AST 19 U/L (17-59); African American GFR (CKD) >90 (>60 ml/min/1.73 sqM); Albumin 4.1 g/dL (3.5-5.0); Alkaline Phosphatase 72 U/L (38-126); Anion Gap 5 mmol/L; Blood Urea Nitrogen 17 mg/dL (9-20); Calcium 8.9 mg/dL (8.4-10.2); Carbon Dioxide 29 mmol/L (22-30); Chloride 104 mmol/L (98-107); Glucose 125 mg/dL (74-99); Non-African American GFR(CKD) >90 (>60 ml/min/1.73 sqM); Potassium 4.2 mmol/L (3.5-5.1); Sodium 138 mmol/L (137-145); Total Bilirubin 0.4 mg/dL (0.2-1.3); Total Protein 6.5 g/dL (6.3-8.2)
[2022-07-15 19:21] VITALS: BP 146/93; PULSE 82; RESP 18
== END 2022-07-15 20:42 | disposition home or self-care (01) ==
LOC: EC 17:27
DX: R07.89 Other chest pain (principal); Z87.891 Personal history of nicotine dependence; J45.909 Unspecified asthma, uncomplicated; E11.9 Type 2 diabetes mellitus without complications; E78.5 Hyperlipidemia, unspecified; I10 Essential (primary) hypertension; M19.90 Unspecified osteoarthritis, unspecified site; Z88.8 Allergy status to other drugs, medicaments and biological substances; Z79.51 Long term (current) use of inhaled steroids; Z79.899 Other long term (current) drug therapy; Z86.16 Personal history of COVID-19; Z79.891 Long term (current) use of opiate analgesic
CPT/HCPCS: 36415; 71046; 80053; 83735; 83880; 84484; 85025; 85610; 85730; 93005; 99285

== ENCOUNTER 2022-08-15 07:00 | Emergency (ER) | payer BC ==
[2022-08-15 07:06] VITALS: TEMP 97.9
--- NOTE | 2022-08-15 07:42 | ED ---
General Adult HPI - General Chief complaint: Shortness of Breath Stated complaint: ALEXUS Time Seen by Provider: 08/15/22 07:08 Source: patient Mode of arrival: wheelchair Limitations: no limitations - History of Present Illness Initial comments: Dictation was produced using [employer] dictation software. please excuse any grammatical, word or spelling errors. Chief Complaint: 62-year-old male presents emergency department for 2 weeks and shortness of breath History of Present Illness: 62-year-old male presents emergency department for 2 weeks and shortness of breath. Patient is a history of COPD. He's been having coughing and dyspnea and A chest ache that's worse with deep inspiration for the last 2 weeks. Patient states her friend to take a deep breath. Physical lungs are constricted. Denies any fevers. He does have a mildly productive cough. Denies any constitutional symptoms. Patient denies any history of heart failu re. He was at his primary care physician is yesterday and was told that his symptoms were concerning. The ROS documented in this emergency department record has been reviewed and confirmed by me. Those systems with pertinent positive or negative responses have been documented in the HPI. All other systems are other negative and/or noncontributory. PHYSICAL EXAM: General Impression: Alert and oriented x3, mildly dyspneic HEENT: Normocephalic atraumatic, extra-ocular movements intact, pupils equal and reactive to light bilaterally, mucous membranes moist. Cardiovascular: Heart regular rate and rhythm Chest: Able to complete full sentences, no retractions, no tachypnea, diffuse lung wheezing Abdomen: abdomen soft, non-tender, non-distended, no organomegaly Musculoskeletal: Pulses present and equal in all extremities, no peripheral edema Motor: no focal deficits noted Neurological: CN II-XII grossly intact, no focal motor or sensory deficits noted Skin: Intact with no visualized rashes Psych: Normal affect and mood ED course: 62-year-old male presents emergency department for shortness of breath. He has associated atypical chest pain Patient has history of COPD. vital signs upon arrival are within acceptable limits. Nursing notes and chart review was performed EKG interpreted by me: Ventricular rate 89, sinus rhythm, PA interval 172, QRS 106, QTC 406. No PA prolongation, no QTC prolongation, no ST or T-wave changes noted.. Overall, this EKG is unremarkable Laboratory evaluation obtained. CBC, coag panel, metabolic panel is unremarkable. Troponin is negative. Brain natruretic peptide is negative. 4 panel viral PCR is negative. Chest x-ray is not acute. Patient given breathing treatment with improvement of his breathing symptoms. No concern for heart failure given normal BNP levels. Patient given a prescription for oral steroids by his primary care doctor yesterday. Patient is strongly advised to begin taking this medication. Disposition options were discussed. Patient is agreeable for discharge with return precautions. Does not need any inhaler refills. - Related Data Home Medications Medication Instructions Recorded Confirmed Montelukast Sodium [Singulair] 10 mg PO DAILY 05/18/18 02/09/22 Albuterol Nebulized [Ventolin 2.5 mg INHALATION RT-Q6H 10/15/19 02/09/22 Nebulized] Fluticasone Propionate [Flovent 2 puff INHALATION RT-BID 06/16/20 02/09/22 Hfa 220 mcg] Albuterol Inhaler [Ventolin Hfa 2 puff INHALATION RT-QID PRN 02/05/22 02/09/22 Inhaler] Previous Rx's Medication Instructions Recorded Famotidine [Pepcid] 20 mg PO BID #60 tab 02/05/22 Ipratropium-Albuterol Nebulize 3 ml INHALATION RT-QID PRN #20 each 02/05/22 [Duoneb 0.5 mg-3 mg/3 ml Soln] Metoprolol Tartrate [Lopressor] 25 mg PO BID #60 tab 02/05/22 glipiZIDE [Glucotrol] 2.5 mg PO AC-BID 14 Days #28 tablet 02/05/22 metFORMIN HCL [Glucophage] 500 mg PO BID@0800,1400 #60 tab 02/05/22 Acetaminophen Tab [Tylenol] 500 mg PO Q6HR PRN tab 02/12/22 Ascorbic Acid [Vitamin C] 500 mg PO BID 30 Days #60 tab 02/12/22 Cholecalciferol [Vitamin D3 (125 125 mcg PO DAILY 30 Days #30 tab 02/12/22 Mcg = 5000 Iu)] Doxycycline [Vibramycin] 100 mg PO BID 7 Days #14 cap 02/12/22 Tiotropium 2.5 Mcg/Puff [Spiriva 2 puff INHALATION RT-DAILY 30 Days 02/12/22 Respimat 2.5 Mcg] #1 each Zinc Sulfate [Orazinc] 220 mg PO DAILY 14 Days #14 cap 02/12/22 predniSONE 10 mg PO DIRECTED #30 tab 02/12/22 Allergies Allergy/AdvReac Type Severity Reaction Status Date / Time Mjfvdlb-XOX-DsH Reductase AdvReac MUSCLE PAIN Verified 07/15/22 17:37 Inhibitor [Ibzsrfr-Khp-Ihq Reductase Inhibitor] Review of Systems ROS Statement: Those systems with pertinent positive or pertinent negative responses have been documented in the HPI. ROS Other: All systems not noted in ROS Statement are negative. Past Medical History Past Medical History: Asthma, Diabetes Mellitus, Hyperlipidemia, Hypertension, Osteoarthritis (OA) Additional Past Medical History / Comment(s): Persistent asthma, NIDDM II- arthritis R knee, COVID + History of Any Multi-Drug Resistant Organisms: None Reported Past Surgical History: Hernia Repair Additional Past Surgical History / Comment(s): Umbilical hernia repair Past Anesthesia/Blood Transfusion Reactions: Motion Sickness Past Psychological History: No Psychological Hx Reported Smoking Status: Former smoker Past Alcohol Use History: None Reported Past Drug Use History: None Reported - Past Family History Mother History Unknown: Yes Family Medical History: Cancer Additional Family Medical History / Comment(s): Mother of ovarian cancer at the age of 78yrs. Father History Unknown: Yes Family Medical History: GI Bleed Additional Family Medical History / Comment(s): Father around age 50 from a bleeding ulcer. Brother(s) Family Medical History: No Reported History Additional Family Medical History / Comment(s): The patient has 2 brothers and one from pneumonia at age 59, 1 is alive with history of bariatric surgery. Sister(s) Family Medical History: No Reported History Additional Family Medical History / Comment(s): Patient has 2 sisters and one has history of gallbladder disease. Daughter(s) Family Medical History: Unable to Obtain Additional Family Medical History / Comment(s): Patient has one daughter with no major medical problems. Son(s) Additional Family Medical History / Comment(s): Patient has 2 sons and one has hypertension. General Exam Limitations: no limitations Course Vital Signs 08/15/22 08/15/22 08/15/22 07:04 07:50 08:10 Temperature 97.9 F Pulse Rate 98 89 86 Respiratory 24 20 18 Rate Blood Pressure 140/85 142/86 140/88 O2 Sat by Pulse 99 96 96 Oximetry 08/15/22 08/15/22 09:45 09:52 Temperature Pulse Rate 84 90 Respiratory Rate Blood Pressure O2 Sat by Pulse Oximetry Medical Decision Making - Lab Data Result diagrams: 08/15/22 07:33 08/15/22 07:33 Lab Results 08/15/22 08/15/22 08/15/22 Range/Units 07:29 07:33 07:33 WBC 8.7 (3.8-10.6) k/uL RBC 4.84 (4.30-5.90) m/uL Hgb 15.3 (13.0-17.5) gm/dL Hct 45.0 (39.0-53.0) % MCV 93.0 (80.0-100.0) fL MCH 31.5 (25.0-35.0) pg MCHC 33.9 (31.0-37.0) g/dL RDW 12.8 (11.5-15.5) % Plt Count 305 (150-450) k/uL MPV 6.9 Neutrophils % 58 % Lymphocytes % 27 % Monocytes % 7 % Eosinophils % 5 % Basophils % 1 % Neutrophils # 5.0 (1.3-7.7) k/uL Lymphocytes # 2.4 (1.0-4.8) k/uL Monocytes # 0.6 (0-1.0) k/uL Eosinophils # 0.5 (0-0.7) k/uL Basophils # 0.1 (0-0.2) k/uL PT 9.4 (9.0-12.0) sec INR 0.9 (<1.2) APTT 24.4 (22.0-30.0) sec Sodium (137-145) mmol/L Potassium (3.5-5.1) mmol/L Chloride (98-107) mmol/L Carbon Dioxide (22-30) mmol/L Anion Gap mmol/L BUN (9-20) mg/dL Creatinine (0.66-1.25) mg/dL Est GFR (CKD-EPI)AfAm (>60 ml/min/1.73 sqM) Est GFR (CKD-EPI)NonAf (>60 ml/min/1.73 sqM) Glucose (74-99) mg/dL Calcium (8.4-10.2) mg/dL Troponin I (0.000-0.034) ng/mL NT-Pro-B Natriuret Pep pg/mL Influenza Type A (PCR) Not Detected (Not Detectd) Influenza Type B (PCR) Not Detected (Not Detectd) RSV (PCR) Not Detected (Not Detectd) SARS-CoV-2 (PCR) Not Detected (Not Detectd) 08/15/22 08/15/22 08/15/22 Range/Units 07:33 07:33 07:33 WBC (3.8-10.6) k/uL RBC (4.30-5.90) m/uL Hgb (13.0-17.5) gm/dL Hct (39.0-53.0) % MCV (80.0-100.0) fL MCH (25.0-35.0) pg MCHC (31.0-37.0) g/dL RDW (11.5-15.5) % Plt Count (150-450) k/uL MPV Neutrophils % % Lymphocytes % % Monocytes % % Eosinophils % % Basophils % % Neutrophils # (1.3-7.7) k/uL Lymphocytes # (1.0-4.8) k/uL Monocytes # (0-1.0) k/uL Eosinophils # (0-0.7) k/uL Basophils # (0-0.2) k/uL PT (9.0-12.0) sec INR (<1.2) APTT (22.0-30.0) sec Sodium 139 (137-145) mmol/L Potassium 4.3 (3.5-5.1) mmol/L Chloride 106 (98-107) mmol/L Carbon Dioxide 27 (22-30) mmol/L Anion Gap 6 mmol/L BUN 15 (9-20) mg/dL Creatinine 0.66 (0.66-1.25) mg/dL Est GFR (CKD-EPI)AfAm >90 (>60 ml/min/1.73 sqM) Est GFR (CKD-EPI)NonAf >90 (>60 ml/min/1.73 sqM) Glucose 140 H (74-99) mg/dL Calcium 8.6 (8.4-10.2) mg/dL Troponin I <0.012 (0.000-0.034) ng/mL NT-Pro-B Natriuret Pep 18 pg/mL Influenza Type A (PCR) (Not Detectd) Influenza Type B (PCR) (Not Detectd) RSV (PCR) (Not Detectd) SARS-CoV-2 (PCR) (Not Detectd) Disposition Clinical Impression: COPD exacerbation Disposition: HOME SELF-CARE Condition: Fair Instructions (If sedation given, give patient instructions): COPD (Chronic Obstructive Pulmonary Disease) (ED) Is patient prescribed a controlled substance at d/c from ED?: No Referrals: Marco Zamora MD [Primary Care Provider] - 1-2 days Time of Disposition: 10:13
[2022-08-15 08:05] LABS: Basophils # (A) 0.1 k/uL (0-0.2); Basophils % (A) 1 %; Eosinophils # (A) 0.5 k/uL (0-0.7); Eosinophils % (A) 5 %; HGB 15.3 gm/dL (13.0-17.5); Lymphocytes # (A) 2.4 k/uL (1.0-4.8); Lymphocytes % (A) 27 %; MCH 31.5 pg (25.0-35.0); MCHC 33.9 g/dL (31.0-37.0); Mean Platelet Volume 6.9; Monocytes # (A) 0.6 k/uL (0-1.0); Monocytes % (A) 7 %; Neutrophils % (A) 58 %; Platelet Count 305 k/uL (150-450); RBC 4.84 m/uL (4.30-5.90); RDW 12.8 % (11.5-15.5); WBC 8.7 k/uL (3.8-10.6)
[2022-08-15 08:13] LABS: African American GFR (CKD) >90 (>60 ml/min/1.73 sqM); Anion Gap 6 mmol/L; Blood Urea Nitrogen 15 mg/dL (9-20); Calcium 8.6 mg/dL (8.4-10.2); Carbon Dioxide 27 mmol/L (22-30); Chloride 106 mmol/L (98-107); Glucose 140 mg/dL (74-99); Non-African American GFR(CKD) >90 (>60 ml/min/1.73 sqM); Sodium 139 mmol/L (137-145)
[2022-08-15 08:15] LABS: INR 0.9 (<1.2); Partial Thromboplastin Time 24.4 sec (22.0-30.0); Prothrombin Time 9.4 sec (9.0-12.0)
--- NOTE | 2022-08-15 08:17 | XR ---
EXAMINATION TYPE: XR chest 2V DATE OF EXAM: 08/15/2022 COMPARISON: 07/15/2022 HISTORY: Shortness of breath TECHNIQUE: Frontal and lateral views of the chest are obtained. FINDINGS: Scattered senescent parenchymal changes noted. Hyperinflation compatible with COPD. No evidence for infiltrate. No evidence for atelectasis. Heart size is stable. Mediastinal structures are stable and grossly unremarkable. No evidence for hilar prominence. Degenerative changes dorsal spine. IMPRESSION: 1. No evidence for acute pulmonary disease.
[2022-08-15 08:27] LABS: Potassium 4.3 mmol/L (3.5-5.1)
[2022-08-15] MEDS ORDERED: DEXAMETHASONE SOD PHOSPHATE 10 MG/ML 1 ML VIAL IV STA (08:53)
[2022-08-15] MEDS ORDERED: IPRATROPIUM-ALBUTEROL 3 ML NEB INHALATION STA (08:53)
[2022-08-15 10:29] VITALS: PULSE 92
[2022-08-15 10:31] VITALS: BP 135/70; RESP 18
== END 2022-08-15 10:30 | disposition home or self-care (01) ==
LOC: EC 07:00
DX: J44.1 Chronic obstructive pulmonary disease with (acute) exacerbation (principal); E11.9 Type 2 diabetes mellitus without complications; I10 Essential (primary) hypertension; Z88.8 Allergy status to other drugs, medicaments and biological substances; Z20.822 Contact with and (suspected) exposure to COVID-19; Z86.16 Personal history of COVID-19; Z79.899 Other long term (current) drug therapy; Z87.891 Personal history of nicotine dependence
CPT/HCPCS: 36415; 94640; 93005; 83880; 80048; 84484; 85025; 85610; 85730; 87636; 71046; 99285; 96374; J1100

== ENCOUNTER 2022-11-07 17:00 | Observation (INO) | payer BC ==
--- NOTE | 2022-11-07 17:33 | ED ---
Chest Pain HPI - General Source: patient, RN notes reviewed Mode of arrival: wheelchair Limitations: no limitations <Joni Tyler - Last Filed: 11/07/22 17:32> - General Source: patient, RN notes reviewed Mode of arrival: wheelchair Limitations: no limitations - History of Present Illness MD Complaint: chest pain Onset/Timin -: days(s) <Ila Magana - Last Filed: 11/07/22 21:38> - General Chief Complaint: Chest Pain Stated Complaint: Chest Pain/Sob/dizzy Time Seen by Provider: 11/07/22 17:32 - History of Present Illness Initial Comments: This a 62-year-old male presents emergency Department chief complaint of chest pain, shortness breath or dizziness. Patient states he had some pain yesterday states he feels more short of breath now states he just doesn't feel well he is oxygen dependent COPD. Patient states that he was recently hospitalized and discharged in September. (Joni Tyler) When I went to evaluate the patient, he reiterated similar symptoms as listed above. Symptoms started 3 days ago and seem to be worsening. States that overall he just does not feel right. He has had to use his rescue inhaler more frequently than normal. Also reports an increase in chest pain/pressure and dizziness. He has an upcoming cardiology appointment with Dr. Del Toro, cardiology, in November, however he has never been evaluated by cardiology before. Also feels like he is starting to develop swelling in his lower extremities that worsens after he eats something. He has not had to increase his oxygen use. Denies any fevers, chills, sore throat, cough, palpitations, abdominal pain, nausea, vomiting, diarrhea, back pain, or headaches. (Ila Magana) - Related Data Home Medications Medication Instructions Recorded Confirmed Montelukast Sodium [Singulair] 10 mg PO DAILY 05/18/18 11/07/22 Fluticasone Propionate [Flovent 2 puff INHALATION RT-BID 06/16/20 11/07/22 Hfa 220 mcg] Albuterol Inhaler [Ventolin Hfa 2 puff INHALATION RT-Q4H PRN 02/05/22 11/07/22 Inhaler] Acetaminophen [Tylenol Arthritis] 650 mg PO Q6H PRN 09/22/22 11/07/22 Ascorbic Acid [Vitamin C] 1,000 mg PO PC-SUPPER 09/22/22 11/07/22 Magnesium 250 mg PO PC-SUPPER 09/22/22 11/07/22 Nitroglycerin Sl Tabs [Nitrostat] 0.4 mg SUBLINGUAL Q5M PRN 09/22/22 11/07/22 Zinc Gluconate [Zinc] 50 mg PO PC-SUPPER 09/22/22 11/07/22 lisinopriL [Prinivil] 20 mg PO HS 09/22/22 11/07/22 Cholecalciferol [Vitamin D3 (125 125 mcg PO PC-SUPPER 11/07/22 11/07/22 Mcg = 5000 Iu)] Ipratropium-Albuterol Nebulize 3 ml INHALATION RT-Q6H 11/07/22 11/07/22 [Duoneb 0.5 mg-3 mg/3 ml Soln] Allergies Allergy/AdvReac Type Severity Reaction Status Date / Time Zfgwhqv-[id number]-JxL Reductase AdvReac MUSCLE PAIN Verified 11/07/22 19:44 Inhibitor [Dptxepo-Zmx-Vhy Reductase Inhibitor] Review of Systems ROS Other: All systems not noted in ROS Statement are negative. <Joni Tyler - Last Filed: 11/07/22 17:32> ROS Other: All systems not noted in ROS Statement are negative. <Ila Magana - Last Filed: 11/07/22 21:38> ROS Statement: Those systems with pertinent positive or pertinent negative responses have been documented in the HPI. Past Medical History Past Medical History: Asthma, Diabetes Mellitus, Hyperlipidemia, Hypertension, Osteoarthritis (OA) Additional Past Medical History / Comment(s): Persistent asthma, NIDDM II- arthritis R knee, COVID + History of Any Multi-Drug Resistant Organisms: None Reported Past Surgical History: Hernia Repair Additional Past Surgical History / Comment(s): Umbilical hernia repair Past Anesthesia/Blood Transfusion Reactions: Motion Sickness Past Psychological History: No Psychological Hx Reported Smoking Status: Former smoker Past Alcohol Use History: None Reported Past Drug Use History: None Reported - Past Family History Mother History Unknown: Yes Family Medical History: Cancer Additional Family Medical History / Comment(s): Mother of ovarian cancer at the age of 78yrs. Father History Unknown: Yes Family Medical History: GI Bleed Additional Family Medical History / Comment(s): Father around age 50 from a bleeding ulcer. Brother(s) Family Medical History: No Reported History Additional Family Medical History / Comment(s): The patient has 2 brothers and one from pneumonia at age 59, 1 is alive with history of bariatric surgery. Sister(s) Family Medical History: No Reported History Additional Family Medical History / Comment(s): Patient has 2 sisters and one has history of gallbladder disease. Daughter(s) Family Medical History: Unable to Obtain Additional Family Medical History / Comment(s): Patient has one daughter with no major medical problems. Son(s) Additional Family Medical History / Comment(s): Patient has 2 sons and one has hypertension. <Joni Tyler - Last Filed: 11/07/22 17:32> General Exam Limitations: no limitations <Joni Tyler - Last Filed: 11/07/22 17:32> Limitations: no limitations General appearance: alert, in no apparent distress Head exam: Present: atraumatic, normocephalic, normal inspection Respiratory exam: Present: decreased breath sounds, prolonged expiratory Cardiovascular Exam: Present: regular rate, normal rhythm, normal heart sounds. Absent: systolic murmur, diastolic murmur, rubs, gallop, clicks Extremities exam: Absent: pedal edema Neurological exam: Present: alert, oriented X3, CN II-XII intact Psychiatric exam: Present: normal affect, normal mood Skin exam: Present: warm, dry, intact, normal color. Absent: rash <Ila Magana - Last Filed: 11/07/22 21:38> Course Vital Signs 11/07/22 11/07/22 11/07/22 17:13 19:52 20:00 Temperature 98.7 F Pulse Rate 97 86 79 Respiratory 22 Rate Blood Pressure 145/92 117/81 O2 Sat by Pulse 93 L 98 99 Oximetry 11/07/22 20:40 Temperature Pulse Rate 80 Respiratory Rate Blood Pressure 120/80 O2 Sat by Pulse 98 Oximetry Chest Pain MDM <Ila Magana - Last Filed: 11/07/22 21:38> - [facility] This is a 62-year-old male who presents to the emergency department for chest pain, shortness of breath, and dizziness. Was pt. sent in by a medical professional or institution? @ -No Did you speak to anyone other than the patient for history? @ -No Did you review nursing and triage notes? @ -Yes, and I agree, it is accurate with regards to the patient's symptoms. Were old charts reviewed? @ -No Differential Diagnosis? @ -Differential Dizziness: Benign paroxysmal positional Vertigo, Menieres disease, otitis media, acoustic neuroma, vertebrobasilar insufficiency, cerebellar stroke, encephalitis, hypovolemic, arrhythmia, coronary artery syndrome, anemia, this is not meant to be an all-inclusive list -Differential Chest Pain: Stable Angina, Unstable Angina, STEMI, NSTEMI Aortic Dissection, Pneumothorax, Musculoskeletal, Esophageal Spasm GERD, Cholecystitis, Pancreatitis, Zoster, this is not meant to be an all-inclusive list. EKG interpreted by me (3pts min.)? @ -Sinus rhythm. Ventricular rate 91 beats per minute, MO interval 166 ms, QRS duration 108 ms, QTC 387 ms. X-rays interpreted by me (1pt min.)? @ -Chest x-ray obtained, my interpretation identifies no localized consolidations or infiltrates. What testing was considered but not performed? (CT, X-rays, U/S, labs)? Why? @ -None What meds were considered but not given? Why? @ -None Did you discuss the management of the patient with other professionals? @ -Yes, Dorie Reynolds with [facility] who accepts the patient for admission. Did you reconcile home meds? @ -Yes Was smoking cessation discussed for >3mins.? @ -No Was critical care preformed (if so, how long)? @ -No Were there social determinants of health that impacted care today? How? (Homelessness, low income, unemployed, alcoholism, drug addiction, transportation, low edu. Level, literacy, decrease access to med. care, long-term, rehab)? @ -No Was there de-escalation of care discussed even if they declined? (Discuss DNR or withdrawal of care, Hospice)? @ -No What co-morbidities impacted this encounter? (DM, HTN, Smoking, COPD, CAD, Cancer, CVA, Hep., AIDS, mental health diagnosis, sleep apnea, morbid obesity)? @ -Asthma, morbid obesity, DM, HLD, HTN Was patient admitted / discharged? @ -Admitted. Lab work obtained and found to be nonactionable. He tested negative for COVID, influenza, and RSV. Troponin and BNP negative. D-dimer negative when corrected for the patient's age. Chest x-ray reveals no acute findings. Heart score is 4. Will admit patient overnight for observation and evaluation by cardiology given his symptoms and multiple risk factors. Undiagnosed new problem with uncertain prognosis? @ -None Drug Therapy requiring intensive monitoring for toxicity (Heparin, Nitro, Insulin, Cardizem)? @ -None Were any procedures done? @ -None Diagnosis/symptom? @ -Chest pain, dizziness Acute, or Chronic, or Acute on Chronic? @ -Acute Uncomplicated (without systemic symptoms) or Complicated (systemic symptoms)? @ -Complicated Side effects of treatment? @ -None Exacerbation, Progression, or Severe Exacerbation] @ -Not applicable Poses a threat to life or bodily function? @ -Yes This case was discussed in detail with the attending ED physician, Dr. Hayden. Presentation, findings, and treatment plan discussed in detail as well. (Ila Magana) Disposition <Joni Tyler - Last Filed: 11/07/22 17:32> <Ila Magana - Last Filed: 11/07/22 21:38> Clinical Impression: Chest pain, Dizziness Disposition: ADMITTED IP TO THIS HOSP
[2022-11-07 17:47] LABS: Basophils % (A) 1 %; Eosinophils # (A) 0.2 k/uL (0-0.7); Eosinophils % (A) 4 %; HCT 45.4 % (39.0-53.0); HGB 15.1 gm/dL (13.0-17.5); Lymphocytes # (A) 1.4 k/uL (1.0-4.8); Lymphocytes % (A) 25 %; MCH 31.1 pg (25.0-35.0); MCHC 33.3 g/dL (31.0-37.0); MCV 93.5 fL (80.0-100.0); Mean Platelet Volume 6.4; Monocytes # (A) 0.5 k/uL (0-1.0); Monocytes % (A) 9 %; Neutrophils # (A) 3.1 k/uL (1.3-7.7); Neutrophils % (A) 57 %; Platelet Count 268 k/uL (150-450); RBC 4.85 m/uL (4.30-5.90); RDW 13.2 % (11.5-15.5); WBC 5.5 k/uL (3.8-10.6)
--- NOTE | 2022-11-07 17:49 | XR ---
EXAMINATION TYPE: XR chest 2V DATE OF EXAM: 11/07/2022 COMPARISON: 09/21/2022 HISTORY: Chest pain TECHNIQUE: 3 views FINDINGS: Heart and mediastinum are normal. Lungs are clear. Diaphragm is normal. Bony thorax is inta ct. No pleural effusion. There is minor spurring in the lower thoracic spine. IMPRESSION: No active cardiopulmonary disease. Normal heart. No change.
[2022-11-07 18:01] LABS: ALT 17 U/L (4-49); AST 20 U/L (17-59); African American GFR (CKD) >90 (>60 ml/min/1.73 sqM); Albumin 4.1 g/dL (3.5-5.0); Alkaline Phosphatase 64 U/L (38-126); Anion Gap 8 mmol/L; Blood Urea Nitrogen 16 mg/dL (9-20); Calcium 8.9 mg/dL (8.4-10.2); Carbon Dioxide 26 mmol/L (22-30); Chloride 104 mmol/L (98-107); Glucose 136 mg/dL (74-99); Magnesium 2.1 mg/dL (1.6-2.3); Non-African American GFR(CKD) >90 (>60 ml/min/1.73 sqM); Potassium 4.8 mmol/L (3.5-5.1); Sodium 138 mmol/L (137-145); Total Bilirubin 0.7 mg/dL (0.2-1.3); Total Protein 6.7 g/dL (6.3-8.2)
[2022-11-07 18:12] LABS: INR 0.9 (<1.2); Prothrombin Time 9.7 sec (9.0-12.0)
[2022-11-07 20:57] LABS: Appearance,Urine Clear (Clear); Bilirubin,Urine Negative (Negative); Blood,Urine Negative (Negative); Color,Urine Yellow; Glucose,Urine (UA) Negative (Negative); Ketones,Urine Negative (Negative); Leukocyte Esterase,Urine Negative (Negative); Nitrite,Urine Negative (Negative); Protein,Urine Trace (Negative); Specific Gravity,Urine 1.028 (1.001-1.035); Urobilinogen,Urine <2.0 mg/dL (<2.0)
[2022-11-07] MEDS ORDERED: ONDANSETRON 4 MG/2 ML VIAL IVP PRN (21:05)
[2022-11-07] MEDS ORDERED: ACETAMINOPHEN TAB 325 MG TAB PO PRN (21:05)
[2022-11-07] MEDS ORDERED: HYDROcodone/APAP 5-325MG 1 EACH TAB PO PRN (21:05)
[2022-11-07] MEDS ORDERED: NALOXONE 0.4 MG/ML 1 ML VIAL IV PRN (21:05)
[2022-11-07] MEDS: ALBUTEROL HFA INHALER INHALATION PRN (22:39)
[2022-11-07] MEDS: IPRATROPIUM 0.5 MG/2.5 ML NEBU INHALATION PRN (22:42)
[2022-11-08] MEDS ORDERED: IPRATROPIUM-ALBUTEROL 3 ML NEB INHALATION SCH (02:00)
[2022-11-08] MEDS: ALBUTEROL HFA INHALER INHALATION PRN ×3 (04:45→17:44)
[2022-11-08] MEDS: IPRATROPIUM 0.5 MG/2.5 ML NEBU INHALATION PRN (04:45)
--- NOTE | 2022-11-08 08:15 | P.CRDCN ---
History of Present Illness Consult date: 11/08/22 Chief complaint: Chest pain History of present illness: The patient is a pleasant 62-year-old gentleman with a past medical history significant for hypertension and dyslipidemia and borderline diabetes and overweight presented to the emergency department complaining of chest discomfort. 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 He stated that he has been experiencing intermittent episodes of pain in between the shoulders described as a sharp kind of pain with no radiation to the chest or arms. Beside that he has been experiencing recently using in the shortness of breath with exertion with no dizziness or lightheadedness and no symptoms of any heart racing or fluttering or presyncope or syncope. He has no history of coronary artery disease but he does have multiple risk factors including diabetes which is borderline hypertension and dyslipidemia. He underwent further investigation including EKG showing sinus mechanism with early repolarization. The first set of troponin came in to be unremarkable. 2 sets of troponin are in process to be done. The chest x-ray did not show any abnormalities. He was seen by our service on 1 and at that point he underwent an echocardiogram which revealed normal biventricular systolic function was no significant valvular abnormalities. The examination is remarkable for regular rhythm with soft systolic murmur at the right upper sternal border was clear breathing sounds bilaterally no aortic 70s edema noted at this point. His vitals are stable Assessment Atypical chest discomfort/discomfort in between the shoulders Borderline diabetes Hypertension Dyslipidemia Overweight Plan Rule out acute coronary event. Follow-up with the serial cardiac enzymes Obtain an echocardiogram was Doppler to establish LV function Further recommendation to follow Past Medical History Past Medical History: Asthma, Diabetes Mellitus, Hyperlipidemia, Hypertension, O steoarthritis (OA) Additional Past Medical History / Comment(s): Persistent asthma, NIDDM II- arthritis R knee, COVID + History of Any Multi-Drug Resistant Organisms: None Reported Past Surgical History: Hernia Repair Additional Past Surgical History / Comment(s): Umbilical hernia repair Past Anesthesia/Blood Transfusion Reactions: Motion Sickness Past Psychological History: No Psychological Hx Reported Smoking Status: Former smoker Past Alcohol Use History: None Reported Past Drug Use History: None Reported - Past Family History Mother History Unknown: Yes Family Medical History: Cancer Additional Family Medical History / Comment(s): Mother of ovarian cancer at the age of 78yrs. Father History Unknown: Yes Family Medical History: GI Bleed Additional Family Medical History / Comment(s): Father around age 50 from a bleeding ulcer. Brother(s) Family Medical History: No Reported History Additional Family Medical History / Comment(s): The patient has 2 brothers and one from pneumonia at age 59, 1 is alive with history of bariatric surgery. Sister(s) Family Medical History: No Reported History Additional Family Medical History / Comment(s): Patient has 2 sisters and one has history of gallbladder disease. Daughter(s) Family Medical History: Unable to Obtain Additional Family Medical History / Comment(s): Patient has one daughter with no major medical problems. Son(s) Additional Family Medical History / Comment(s): Patient has 2 sons and one has hypertension. Medications and Allergies Home Medications Medication Instructions Recorded Confirmed Type Montelukast Sodium [Singulair] 10 mg PO DAILY 05/18/18 11/07/22 History Fluticasone Propionate [Flovent 2 puff INHALATION RT-BID 06/16/20 11/07/22 History Hfa 220 mcg] Albuterol Inhaler [Ventolin Hfa 2 puff INHALATION RT-Q4H PRN 02/05/22 11/07/22 History Inhaler] Acetaminophen [Tylenol Arthritis] 650 mg PO Q6H PRN 09/22/22 11/07/22 History Ascorbic Acid [Vitamin C] 1,000 mg PO PC-SUPPER 09/22/22 11/07/22 History Magnesium 250 mg PO PC-SUPPER 09/22/22 11/07/22 History Nitroglycerin Sl Tabs [Nitrostat] 0.4 mg SUBLINGUAL Q5M PRN 09/22/22 11/07/22 History Zinc Gluconate [Zinc] 50 mg PO PC-SUPPER 09/22/22 11/07/22 History lisinopriL [Prinivil] 20 mg PO HS 09/22/22 11/07/22 History Cholecalciferol [Vitamin D3 (125 125 mcg PO PC-SUPPER 11/07/22 11/07/22 History Mcg = 5000 Iu)] Ipratropium-Albuterol Nebulize 3 ml INHALATION RT-Q6H 11/07/22 11/07/22 History [Duoneb 0.5 mg-3 mg/3 ml Soln] Allergies Allergy/AdvReac Type Severity Reaction Status Date / Time Vfqjich-YPZ-SvO Reductase AdvReac MUSCLE PAIN Verified 11/07/22 19:44 Inhibitor [Qqdfatk-Chl-Dbz Reductase Inhibitor] Physical Exam Vitals: Vital Signs Temp Pulse Resp BP Pulse Ox 11/08/22 06:00 85 133/88 90 L 11/08/22 05:00 85 107/69 99 11/08/22 04:57 82 11/08/22 04:46 79 11/08/22 04:00 73 147/94 98 11/08/22 03:00 79 130/87 99 11/08/22 02:00 76 108/67 99 11/08/22 01:00 86 137/86 98 11/08/22 00:00 84 106/72 97 11/07/22 23:00 96 118/82 97 11/07/22 22:51 100 11/07/22 22:43 99 11/07/22 22:19 112 H 118/82 99 11/07/22 22:18 99 118/82 98 11/07/22 20:40 80 120/80 98 11/07/22 20:00 79 117/81 99 11/07/22 19:52 86 98 11/07/22 17:13 98.7 F 97 22 145/92 93 L Intake and Output 11/07/22 11/08/22 11/08/22 22:59 06:59 14:59 Other: Weight 157.397 kg Results 11/07/22 17:31 11/07/22 17:31 Cardiac Enzymes 11/07/22 11/07/22 Range/Units 17:31 17:31 AST 20 (17-59) U/L Troponin I <0.012 (0.000-0.034) ng/mL Coagulation 11/07/22 Range/Units 17:31 PT 9.7 (9.0-12.0) sec APTT 23.0 (22.0-30.0) sec CBC 11/07/22 Range/Units 17:31 WBC 5.5 (3.8-10.6) k/uL RBC 4.85 (4.30-5.90) m/uL Hgb 15.1 (13.0-17.5) gm/dL Hct 45.4 (39.0-53.0) % Plt Count 268 (150-450) k/uL Comprehensive Metabolic Panel 11/07/22 Range/Units 17:31 Sodium 138 (137-145) mmol/L Potassium 4.8 (3.5-5.1) mmol/L Chloride 104 (98-107) mmol/L Carbon Dioxide 26 (22-30) mmol/L BUN 16 (9-20) mg/dL Creatinine 0.67 (0.66-1.25) mg/dL Glucose 136 H (74-99) mg/dL Calcium 8.9 (8.4-10.2) mg/dL AST 20 (17-59) U/L ALT 17 (4-49) U/L Alkaline Phosphatase 64 (38-126) U/L Total Protein 6.7 (6.3-8.2) g/dL Albumin 4.1 (3.5-5.0) g/dL Current Medications Generic Name Dose Route Start Last Admin Trade Name Freq PRN Reason Stop Dose Admin Acetaminophen 650 mg 11/07/22 21:05 Acetaminophen Tab 325 Mg Tab PO Q6HR PRN Mild Pain or Fever > 100.5 Hydrocodone Bitart/Acetaminophen 1 each 11/07/22 21:05 Hydrocodone/Apap 5-325mg 1 Each Tab PO Q4HR PRN Moderate Pain (Scale 4 to 6) Albuterol Sulfate 2 puff 11/07/22 21:06 11/08/22 04:45 Albuterol Hfa Inhaler INHALATION 2 puff RT-Q4H PRN Administration Shortness Of Breath Ascorbic Acid 1,000 mg 11/08/22 18:30 Ascorbic Acid 500 Mg Tab PO PC-SUPPER INGRID Cholecalciferol 125 mcg 11/08/22 18:30 Cholecalciferol 125 Mcg (5000 Iu) Tablet PO PC-SUPPER INGRID Fluticasone Propionate 2 puff 11/08/22 08:00 Fluticasone 110 Mcg Inhaler INHALATION RT-BID INGRID Ipratropium [place] 0.5 mg 11/07/22 22:27 11/08/22 04:45 Ipratropium 0.5 Mg/2.5 Ml Nebu INHALATION 0.5 mg RT-Q6H PRN Administration Shortness Of Breath Lisinopril 20 mg 11/08/22 21:00 Lisinopril 20 Mg Tab PO HS INGRID Magnesium Oxide 200 mg 11/08/22 18:30 Magnesium Oxide 400 Mg Tab PO PC-SUPPER INGRID Montelukast Sodium 10 mg 11/08/22 09:00 Montelukast 10 Mg Tab PO DAILY INGRID Naloxone HCl 0.2 mg 11/07/22 21:05 Naloxone 0.4 Mg/Ml 1 Ml Vial IV Q2M PRN Opioid Reversal Ondansetron HCl 4 mg 11/07/22 21:05 Ondansetron 4 Mg/2 Ml Vial IVP Q8HR PRN Nausea And Vomiting Zinc Sulfate 220 mg 11/08/22 18:30 Zinc Sulfate 220 Mg Cap PO PC-SUPPER INGRID Intake and Output 11/07/22 11/08/22 11/08/22 22:59 06:59 14:59 Other: Weight 157.397 kg 11/07/22 17:31 11/07/22 17:31
--- NOTE | 2022-11-08 08:25 | P.HPIM ---
History of Present Illness This is a pleasant 62 years old male with multiple medical problems including asthma/COPD, hypertension, hyperlipidemia, diabetes mellitus (pt states he has prediabestes and he was taking metformin when he was on steroid before but not now), osteoarthritis Patient presents because of dizziness, he says that he is was having back pain last Saturday which is resolved but associated with some chest pressure, he did not feel well over the last 1-2 days, he says that he feels dizziness without vertigo and without presyncope but developed imbalance problem also has been complaining of from worsening numbness in his legs, patient states that he has history of peripheral neuropathy but he thinks now is getting worse. Currently denies back pain. He feels weaker generally , he feels more tingly as well. Currently he denies chest pain, he has chronic dyspnea and he is on oxygen at home for the last 2 years after he was diagnosed with Covid, no coughing. Denies any change in urine or bowel habits, no vomiting diarrhea or abdominal pain, no dysuria or urgency. He denies headache. He denies smoking alcohol or illicit drugs Patient is afebrile and vitals are stable, mildly tachypneic Unremarkable CBC, INR, BMP and liver enzymes. ProBNP less than 11 troponin less than 0.012. D-dimer slightly high at 0.6 which is adjusted for age. Urine analysis is negative for infection Viruses are undetected including influenza, RSV and coronavirus Chest x-ray: Negative process EKG: Normal sinus rhythm at [address]-T changes Patient did not receive any medication emergency room and was admitted with cardiology consult Review of Systems Review of systems CONSTITUTIONAL: No fever, no malaise, no fatigue. HEENT: No recent visual problems or hearing problems. Denied any sore throat. CARDIOVASCULAR: No orthopnea, PND, no palpitations, no syncope. PULMONARY: No shortness of breath, no cough, no hemoptysis. GASTROINTESTINAL: No diarrhea, no nausea, no vomiting, no abdominal pain. Normoactive bowel sounds. NEUROLOGICAL: No headaches, no weakness, no numbness. HEMATOLOGICAL: Denies any bleeding or petechiae. GENITOURINARY: Denies any burning micturition, frequency, or urgency. MUSCULOSKELETAL/RHEUMATOLOGICAL: Denies any joint pain, swelling, or any muscle pain. ENDOCRINE: Denies any polyuria or polydipsia. Past Medical History Past Medical History: Asthma, Diabetes Mellitus, Hyperlipidemia, Hypertension, Osteoarthritis (OA) Additional Past Medical History / Comment(s): Persistent asthma, NIDDM II- arthritis R knee, COVID + History of Any Multi-Drug Resistant Organisms: None Reported Past Surgical History: Hernia Repair Additional Past Surgical History / Comment(s): Umbilical hernia repair Past Anesthesia/Blood Transfusion Reactions: Motion Sickness Past Psychological History: No Psychological Hx Reported Smoking Status: Former smoker Past Alcohol Use History: None Reported Past Drug Use History: None Reported - Past Family History Mother History Unknown: Yes Family Medical History: Cancer Additional Family Medical History / Comment(s): Mother of ovarian cancer at the age of 78yrs. Father History Unknown: Yes Family Medical History: GI Bleed Additional Family Medical History / Comment(s): Father around age 50 from a bleeding ulcer. Brother(s) Family Medical History: No Reported History Additional Family Medical History / Comment(s): The patient has 2 brothers and one from pneumonia at age 59, 1 is alive with history of bariatric surgery. Sister(s) Family Medical History: No Reported History Additional Family Medical History / Comment(s): Patient has 2 sisters and one has history of gallbladder disease. Daughter(s) Family Medical History: Unable to Obtain Additional Family Medical History / Comment(s): Patient has one daughter with no major medical problems. Son(s) Additional Family Medical History / Comment(s): Patient has 2 sons and one has hypertension. Medications and Allergies Home Medications Medication Instructions Recorded Confirmed Type Montelukast Sodium [Singulair] 10 mg PO DAILY 05/18/18 11/07/22 History Fluticasone Propionate [Flovent 2 puff INHALATION RT-BID 06/16/20 11/07/22 History Hfa 220 mcg] Albuterol Inhaler [Ventolin Hfa 2 puff INHALATION RT-Q4H PRN 02/05/22 11/07/22 H istory Inhaler] Acetaminophen [Tylenol Arthritis] 650 mg PO Q6H PRN 09/22/22 11/07/22 History Ascorbic Acid [Vitamin C] 1,000 mg PO PC-SUPPER 09/22/22 11/07/22 History Magnesium 250 mg PO PC-SUPPER 09/22/22 11/07/22 History Nitroglycerin Sl Tabs [Nitrostat] 0.4 mg SUBLINGUAL Q5M PRN 09/22/22 11/07/22 History Zinc Gluconate [Zinc] 50 mg PO PC-SUPPER 09/22/22 11/07/22 History lisinopriL [Prinivil] 20 mg PO HS 09/22/22 11/07/22 History Cholecalciferol [Vitamin D3 (125 125 mcg PO PC-SUPPER 11/07/22 11/07/22 History Mcg = 5000 Iu)] Ipratropium-Albuterol Nebulize 3 ml INHALATION RT-Q6H 11/07/22 11/07/22 History [Duoneb 0.5 mg-3 mg/3 ml Soln] Allergies Allergy/AdvReac Type Severity Reaction Status Date / Time Wfdswms-IKZ-DlE Reductase AdvReac MUSCLE PAIN Verified 11/07/22 19:44 Inhibitor [Iwakbqt-Qvl-Wvr Reductase Inhibitor] Physical Exam Vitals: Vital Signs Temp Pulse Resp BP Pulse Ox 11/08/22 06:00 85 133/88 90 L 11/08/22 05:00 85 107/69 99 11/08/22 04:57 82 11/08/22 04:46 79 11/08/22 04:00 73 147/94 98 11/08/22 03:00 79 130/87 99 11/08/22 02:00 76 108/67 99 11/08/22 01:00 86 137/86 98 11/08/22 00:00 84 106/72 97 11/07/22 23:00 96 118/82 97 11/07/22 22:51 100 11/07/22 22:43 99 11/07/22 22:19 112 H 118/82 99 11/07/22 22:18 99 118/82 98 11/07/22 20:40 80 120/80 98 11/07/22 20:00 79 117/81 99 11/07/22 19:52 86 98 11/07/22 17:13 98.7 F 97 22 145/92 93 L Intake and Output 11/07/22 11/08/22 11/08/22 22:59 06:59 14:59 Other: Weight 157.397 kg -GENERAL: The patient is alert and oriented x3, not in any acute distress. Morbidly obese HEENT: Pupils are round and equally reacting to light. EOMI. No scleral icterus. No conjunctival pallor. Normocephalic, atraumatic. No pharyngeal erythema. No thyromegaly. CARDIOVASCULAR: S1 and S2 present. No murmurs, rubs, or gallops. PULMONARY: Chest is clear to auscultation, no wheezing or crackles. ABDOMEN: Soft, nontender, nondistended, normoactive bowel sounds. No palpable organomegaly. MUSCULOSKELETAL: No joint swelling or deformity. EXTREMITIES: No cyanosis, clubbing, or pedal edema. NEUROLOGICAL: Gross neurological examination did not reveal any focal deficits. SKIN: No rashes. no petechiae. Results CBC & Chem 7: 11/07/22 17:31 11/07/22 17:31 Labs: Abnormal Lab Results - Last 24 Hours (Table) 11/07/22 11/07/22 11/07/22 Range/Units 17:31 17:31 20:49 D-Dimer 0.60 H (<0.60) mg/L FEU Glucose 136 H (74-99) mg/dL Urine Protein Trace H (Negative) Assessment and Plan Assessment: dizziness with balance problem Chest pain/back pain, currently resolved worsening numbness in both legs which she attributes to worsen and peripheral neuropathy Chronic asthma/ with exacerbation Chronic hypoxic respiratory failure, Since he had covid about 2 years ago Hypertension Hyperlipidemia history of pre-diabetes mellitus History of osteoarthritis Morbid obesity Plan: Cardiology consult check echo Telemetry check ct of the brain check b12 , tsh and folate neurology consult Labs and medication were reviewed.. Continue same treatment. Continue with symptomatic treatment. Resume home medication. Monitor labs and vitals. DVT and GI prophylaxis. Further recommendations as per clinical course of the patie nt DVT prophylaxis: Subcutaneous heparin GI Prophylaxis: Pepcid PT/OT: Pending Prognosis is guarded
--- NOTE | 2022-11-08 09:13 | CT ---
EXAMINATION TYPE: CT brain wo con DATE OF EXAM: 11/08/2022 HISTORY: Dizziness CT DLP: 1143 mGycm. Automated Exposure Control for Dose Reduction was Utilized. TECHNIQUE: CT scan of the head is performed without contrast. COMPARISON: CT brain July 31, 2018 FINDINGS: There is no acute intracranial hemorrhage or midline shift identified. Ventricles and sul ci within normal limits in size for patient's age. Ortiz-white matter differentiation is preserved. S oft tissue density suspicious for cerumen is seen in the deep external auditory canals bilaterally si milar to prior. No suspicious opacification of the mastoid air cells. Mild mucosal thickening involvi ng the inferior maxillary sinuses bilaterally otherwise paranasal sinuses are clear and globes are in tact bilaterally. IMPRESSION: No acute intracranial hemorrhage or midline shift. No significant change from prior CT.
[2022-11-08] MEDS: FLUTICASONE 110 MCG INHALER INHALATION SCH ×2 (10:14→17:44)
[2022-11-08 10:18] LABS: T4, Free (Free Thyroxine) 0.92 ng/dL (0.78-2.19)
[2022-11-08] MEDS: MONTELUKAST 10 MG TAB PO SCH (10:32)
--- NOTE | 2022-11-08 11:39 | CA ---
Transthoracic Echo Report Name: Joni Brown Age: 62 Gender: M : 1960 Exam Date: 11/08/2022 07:20 Exam Location: [place] [facility] Ht (in): 69 Wt (lb): 345 Ordering Physician: Gregor Wright MD ([id number]) Attending/Referring Phys: Nurse Practitioner Per Diem Hayde Albert RDCS Procedure CPT: Indications: CP Cardiac Hx: morbitly obese Technical Quality: Technically difficult study Contrast 1: Lumason Total Dose (mL): 3 Contrast 2: Total Dose (mL): MEASUREMENTS (Male / Female) Normal Values 2D ECHO LV Diastolic Diameter PLAX 4.2 cm 4.2 - 5.9 / 3.9 - 5.3 cm LV Systolic Diameter PLAX 2.7 cm IVS Diastolic Thickness 1.6 cm 0.6 - 1.0 / 0.6 - 0.9 cm LVPW Diastolic Thickness 1.4 cm 0.6 - 1.0 / 0.6 - 0.9 cm LV Relative Wall Thickness 0.7 RV Internal Dim ED PLAX 3.1 cm LA Systolic Diameter LX 2.8 cm 3.0 - 4.0 / 2.7 - 3.8 cm LA Volume 37.2 cm??? 18 - 58 / 22 - 52 cm??? M-MODE Aortic Root Diameter MM 3.8 cm MV E Point Septal Separation 0.7 cm AV Cusp Separation MM 2.4 cm DOPPLER AV Peak Velocity 118.9 cm/s AV Peak Gradient 5.7 mmHg MV Area PHT 3.8 cm??? Mitral E Point Velocity 77.2 cm/s Mitral A Point Velocity 85.9 cm/s Mitral E to A Ratio 0.9 MV Deceleration Time 201.6 ms MV E' Velocity 6.9 cm/s Mitral E to MV E' Ratio 11.2 TR Peak Velocity 194.0 cm/s TR Peak Gradient 15.0 mmHg Right Ventricular Systolic Press 20.0 mmHg FINDINGS Left Ventricle Left ventricular ejection fraction is estimated at 55-60 %. Left ventricular cavity size normal. Moderate concentric left ventricular hypertrophy. No obvious regional wall motion abnormalities. Right Ventricle Normal right ventricular size and function. Right ventricular systolic pressure within normal limits. Right Atrium Right atrium not well visualized. Left Atrium Normal left atrial size. Mitral Valve Structurally normal mitral valve. No mitral stenosis, regurgitation or prolapse. Aortic Valve Trileaflet aortic valve. No aortic valve stenosis or regurgitation. Tricuspid Valve Structurally normal tricuspid valve. Trace to mild tricuspid regurgitation. Pulmonic Valve Structurally normal pulmonic valve. No pulmonic regurgitation. Pericardium No pericardial effusion. Normal pericardium. Aorta Mild aortic dilatation at the level of the sinuses of valsalva 38 mm CONCLUSIONS Technically difficult study for interpretation Poorly visualized endocardium an intracardiac valves Normal LV systolic function Previewed by: Dr. Gregor Wright MD (Electronically Signed) Final Date: 08 November 2022 11:38
[2022-11-08 12:04] LABS: Glucose,Whole Blood 110 mg/dL (70-110)
--- NOTE | 2022-11-08 12:33 | P.CNNES ---
History of Present Illness Consult date: 11/08/22 Requesting physician: Angus E Ashlee Reason for Consult: dizziness and worsening numbness History of Present Illness: This is a 62-year-old gentleman with a history of borderline diabetes, hypertension, hyperlipidemia who presented that because of the chest pain. Neurology consulted for his illness as well as numbness. He stated that the patient has been having dizziness for the last at least 1 week and he feels it h appens when he is moving his head but resolved when he is resting. Denies any nausea or vomiting. He has minimal ringing in the ear. Denies any hearing loss. Denies any focal weakness. He feels like he is having numbness of both hands but resolves when he is moving his head. He has peripheral neuropathy of his lower extremities. Denies any visual disturbance. Some of the workup during his hospital visit consisted of: CT head is reported as no acute intracranial hemorrhage or midline shift. No significant change from prior CT. 2-D echo was reported as technically difficult study for agitation. Poorly visualized echocardiogram. Normal left ventricle systolic function. TSH is 0.030. Serum glucose is 136. Review of Systems Review of system: The 12 point system was reviewed and apparent positive and negative per HPI. Past Medical History Past Medical History: Asthma, Diabetes Mellitus, Hyperlipidemia, Hypertension, Osteoarthritis (OA) Additional Past Medical History / Comment(s): Persistent asthma, NIDDM II- arthritis R knee, COVID + History of Any Multi-Drug Resistant Organisms: None Reported Past Surgical History: Hernia Repair Additional Past Surgical History / Comment(s): Umbilical hernia repair Past Anesthesia/Blood Transfusion Reactions: Motion Sickness Past Psychological History: No Psychological Hx Reported Additional Psychological History / Comment(s): Pt resides in a home and his brother lives in the same building. He has a glucometer. He has a nebulizer. He drives. He has a pulsosimetor. 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 Smoking Status: Former smoker Past Alcohol Use History: None Reported Additional Past Alcohol Use History / Comment(s): Pt started smoking in 1976 and quit [id number] Past Drug Use History: None Reported Additional Drug Use History / Comment(s): Patient quit smoking about 40 years ago, after 4 years of use, no alcohol intake, has nebulizer. 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 Father History Unknown: Yes Family Medical History: GI Bleed Additional Family Medical History / Comment(s): Father around age 50 from a bleeding ulcer. Brother(s) Family Medical History: No Reported History Additional Family Medical History / Comment(s): The patient has 2 brothers and one from pneumonia at age 59, 1 is alive with history of bariatric surgery. Sister(s) Family Medical History: No Reported History Additional Family Medical History / Comment(s): Patient has 2 sisters and one has history of gallbladder disease. Daughter(s) Family Medical History: Unable to Obtain Additional Family Medical History / Comment(s): Patient has one daughter with no major medical problems. Son(s) Additional Family Medical History / Comment(s): Patient has 2 sons and one has hypertension. Medications and Allergies Home Medications Medication Instructions Recorded Confirmed Type Montelukast Sodium [Singulair] 10 mg PO DAILY 05/18/18 11/07/22 History Fluticasone Propionate [Flovent 2 puff INHALATION RT-BID 06/16/20 11/07/22 History Hfa 220 mcg] Albuterol Inhaler [Ventolin Hfa 2 puff INHALATION RT-Q4H PRN 02/05/22 11/07/22 History Inhaler] Acetaminophen [Tylenol Arthritis] 650 mg PO Q6H PRN 09/22/22 11/07/22 History Ascorbic Acid [Vitamin C] 1,000 mg PO PC-SUPPER 09/22/22 11/07/22 History Magnesium 250 mg PO PC-SUPPER 09/22/22 11/07/22 History Nitroglycerin Sl Tabs [Nitrostat] 0.4 mg SUBLINGUAL Q5M PRN 09/22/22 11/07/22 History Zinc Gluconate [Zinc] 50 mg PO PC-SUPPER 09/22/22 11/07/22 History lisinopriL [Prinivil] 20 mg PO HS 09/22/22 11/07/22 History Cholecalciferol [Vitamin D3 (125 125 mcg PO PC-SUPPER 11/07/22 11/07/22 History Mcg = 5000 Iu)] Ipratropium-Albuterol Nebulize 3 ml INHALATION RT-Q6H 11/07/22 11/07/22 History [Duoneb 0.5 mg-3 mg/3 ml Soln] Allergies Allergy/AdvReac Type Severity Reaction Status Date / Time Bomeula-WLW-GbS Reductase AdvReac MUSCLE PAIN Verified 11/07/22 19:44 Inhibitor [Sbvrvya-Xko-Xgr Reductase Inhibitor] Physical Examination - Vital Signs Vital Signs: Vital Signs Temp Pulse Pulse Resp BP BP Pulse Ox 11/08/22 10:25 98 11/08/22 10:14 98.4 F 71 16 125/83 99 11/08/22 06:00 85 133/88 90 L 11/08/22 05:00 85 107/69 99 11/08/22 04:57 82 11/08/22 04:46 79 11/08/22 04:00 73 147/94 98 11/08/22 03:00 79 130/87 99 11/08/22 02:00 76 108/67 99 11/08/22 01:00 86 137/86 98 11/08/22 00:00 84 106/72 97 11/07/22 23:00 96 118/82 97 11/07/22 22:51 100 11/07/22 22:43 99 11/07/22 22:19 112 H 118/82 99 11/07/22 22:18 99 118/82 98 11/07/22 20:40 80 120/80 98 11/07/22 20:00 79 117/81 99 11/07/22 19:52 86 98 11/07/22 17:13 98.7 F 97 22 145/92 93 L Intake and Output 11/07/22 11/08/22 11/08/22 22:59 06:59 14:59 Other: Weight 157.397 kg 157.397 kg GENERAL: The patient is lying in bed and is not in acute distress. CHEST: The heart rate is regular rate rhythm. No murmurs to auscultation. LUNG: Clear to auscultation bilaterally no wheezing noted throughout. Not labored breathing. ABDOMEN/GI: Bowel sounds present in all 4 quadrants. No tenderness to palpation throughout. NEUROLOGICAL: Higher mental function: The patient is awake, alert, oriented to self, place and time. Patient is following commands. No aphasia and no neglect. Cranial nerves: The pupils are round, equal and reactive to light and accommodation. Visual babb are full to confrontation throughout. Extraocular movement is intact no nystagmus is noted. Facial sensation is normal to touch throughout. The facial strength is normal throughout. Hearing is normal bilaterally to hand rub. Tongue is midline and moved [id number] without any difficulty. No dysarthria is noted. Shoulder shrug is normal bilaterally. Motor: Gait is normal. The strength is 5 over 5 throughout. Normal tone and bulk. Cerebellum: Normal finger to nose bilaterally. Sensation: Sensation is normal to touch throughout. Reflexes (right/left): 1+ throughout. Plantars are mute bilaterally. Results - Laboratory Findings CBC and BMP: 11/07/22 17:31 11/07/22 17:31 Abnormal Lab Findings: Abnormal Labs 11/07/22 11/07/22 11/07/22 17:31 17:31 20:49 D-Dimer 0.60 H Glucose 136 H TSH Urine Protein Trace H 11/08/22 08:56 D-Dimer Glucose TSH 0.030 L Urine Protein Assessment and Plan Assessment: Acute Vertigo for past one week and it appears peripheral. Numbness of both hands appears more carpal tunnel History of peripheral neuropathy and lower extremity History of Borderline Diabetes Chest pain Morbid obesity Plan: I ordered CT angiography of the head and neck. Regarding pursuing MRI of the brain patient states that he wants to hold off for now and will consider tomorrow I also spoke with the geodetic surveyor technologist seems that they're old book for today so we'll see if he continues to have symptoms and if he does we can pursue tomorrow but I'm not sure if he'll fit because of his body weight. Primary team ordered hemoglobin A1c, TSH, vitamin B-12, folate and are pending Cardiology is consulted We'll defer the rest of the medical management to primary team The plan was discussed with the patient and the the primary attending Thank you for the consultation Time with Patient: Greater than 30
--- NOTE | 2022-11-08 14:19 | CT ---
EXAMINATION TYPE: CT angio head neck DATE OF EXAM: 11/08/2022 HISTORY: Dizziness COMPARISON: CTA head and neck August 10, 2018 CT DLP: 511.3 mGycm. Automated Exposure Control for Dose Reduction was Utilized. TECHNIQUE: CTA scan of the head and neck is performed with IV Contrast, patient injected with 65 mL of Isovue 370, axial images are obtained, coronal and sagittal reformatted images are reviewed. 3D re constructed images are created on an independent workstation and reviewed. FINDINGS: Carotid/Vascular Structures: 3 vessel origin from aortic arch. There is poor contrast opacification b ut no significant plaque or stenosis. Suboptimal evaluation of common carotid arteries but no signifi cant plaque or stenosis in the common or internal carotid arteries is seen bilaterally including a le daniel of bilateral carotid bulbs which show no significant plaque. Patent external carotid arteries are seen bilaterally without significant plaque or stenosis. Codomin ant vertebral arteries are patent to basilar junction. There is a patent left posterior communicating artery. There are smaller caliber but patent right posterior communicating artery. There is no signi ficant focal stenosis or aneurysm in the posterior circulation. There is patent anterior communicatin g artery. There is no significant focal stenosis or aneurysm in the anterior circulation. Other: Moderate spurring and disc space narrowing C5-C6 and C6-C7 levels. IMPRESSION: No significant abnormality is seen. No significant change from prior CTA study. NASCET criteria was used in interpretation of this exam?
[2022-11-08] MEDS ORDERED: CHOLECALCIFEROL 125 MCG (5000 IU) TABLET PO SCH (18:30)
[2022-11-08] MEDS ORDERED: ZINC SULFATE 220 MG CAP PO SCH (18:30)
[2022-11-08] MEDS ORDERED: ASCORBIC ACID 500 MG TAB PO SCH (18:30)
[2022-11-08] MEDS ORDERED: MAGNESIUM OXIDE 400 MG TAB PO SCH (18:30)
[2022-11-08] MEDS ORDERED: lisinopriL 20 MG TAB PO SCH (21:00)
--- NOTE | 2022-11-09 08:33 | P.PN ---
Subjective Progress Note Date: 11/09/22 Principal diagnosis: Atypical chest discomfort The patient is a pleasant 62-year-old gentleman with a past medical history significant for hypertension and dyslipidemia and borderline diabetes and overweight presented to the emergency department complaining of chest discomfort. 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 He stated that he has been experiencing intermittent episodes of pain in between the shoulders described as a sharp kind of pain with no radiation to the chest or arms. Beside that he has been experiencing recently using in the shortness of breath with exertion with no dizziness or lightheadedness and no symptoms of any heart racing or fluttering or presyncope or syncope. He has no history of coronary artery disease but he does have multiple risk factors including diabetes which is borderline hypertension and dyslipidemia. He underwent further investigation including EKG showing sinus mechanism with early repolarization. The first set of troponin came in to be unremarkable. 2 sets of troponin are in process to be done. The chest x-ray did not show any abnormalities. He was seen by our service on 1 and at that point he underwent an echocardiogram which revealed normal biventricular systolic function was no significant valvular abnormalities. The examination is remarkable for regular rhythm with soft systolic murmur at the right upper sternal border was clear breathing sounds bilaterally no lower extremities edema noted at this point. His vitals are stable 11/09/2022 The patient was seen and evaluated this morning. He is asymptomatic in terms of chest pain or back pain or shortness of breath or any dizziness or lightheadedness or any feeling of heart racing or fluttering or presyncope or syncope. He underwent an echo showed normal biventricular systolic function and the echo was technically difficult. He was ruled out for acute coronary event even yesterday. He is having a workup by the neurology service and he is in process of having an MRI of the brain for the vertigo. A stress test was advised that the patient would like to have it done as an outpatient which is not unreasonable given that he is asymptomatic and having a neurologic workup at this point. From the cardiac standpoint of view by the patient can be disc harged home. Assessment Atypical chest discomfort/discomfort in between the shoulders Borderline diabetes Hypertension Dyslipidemia Overweight Plan Acute coronary event was ruled out Echo showed no abnormalities as well Vertigo workup by the neurology service still in process to be done Stress test as an outpatient The patient can be discharged home from the cardiac standpoint Objective - Vital Signs Vital signs: Vital Signs Temp 97.9 F 11/09/22 02:29 Pulse 78 11/09/22 02:29 Resp 18 11/09/22 02:29 BP 147/88 11/09/22 02:29 Pulse Ox 96 11/09/22 02:29 FiO2 Intake & Output 11/08/22 11/09/22 11/09/22 18:59 06:59 18:59 Intake Total 240 Balance 240 Weight 157.397 kg Intake: Oral 240 Other: # Voids 2 1 - Labs CBC & Chem 7: 11/07/22 17:31 11/07/22 17:31 Labs: Abnormal Lab Results - Last 24 Hours (Table) 11/08/22 11/08/22 Range/Units 08:56 08:56 Hemoglobin A1c 6.9 H (0.0-6.0) % TSH 0.030 L (0.465-4.680) mIU/L
[2022-11-09] MEDS: MONTELUKAST 10 MG TAB PO SCH (08:37)
[2022-11-09] MEDS: IPRATROPIUM 0.5 MG/2.5 ML NEBU INHALATION PRN ×2 (08:38→15:25)
[2022-11-09] MEDS: ALBUTEROL HFA INHALER INHALATION PRN ×2 (08:38→15:25)
--- NOTE | 2022-11-09 11:48 | P.PN ---
Subjective Progress Note Date: 11/09/22 The patient seen at bedside and he states that he is doing much better today compared to yesterday. He denies any further dizziness. No further nausea or vomiting. Denies of any focal weakness. Objective - Vital Signs Vital signs: Vital Signs Temp 98.2 F 11/09/22 07:25 Pulse 90 11/09/22 08:53 Resp 18 11/09/22 07:25 BP 146/85 11/09/22 07:25 Pulse Ox 98 11/09/22 08:42 FiO2 Intake & Output 11/08/22 11/09/22 11/09/22 18:59 06:59 18:59 Intake Total 240 120 Balance 240 120 Weight 157.397 kg Intake: Oral 240 120 Other: # Voids 2 1 - Exam GENERAL: The patient is lying in bed and is not in acute distress. NEUROLOGICAL: Higher mental function: The patient is awake, alert, oriented to self, place and time. Patient is following commands. No aphasia and no neglect. Cranial nerves: The pupils are round, equal and reactive to light and accommodation. Visual babb are full to confrontation throughout. Extraocular movement is intact no nystagmus is noted. Facial sensation is normal to touch throughout. The facial strength is normal throughout. Hearing is normal bilaterally to hand rub. Tongue is midline and moved [id number] without any difficulty. No dysarthria is noted. Shoulder shrug is normal bilaterally. Motor: Gait is normal. The strength is 5 over 5 throughout. Normal tone and bulk. Cerebellum: Normal finger to nose bilaterally. Sensation: Sensation is normal to touch throughout. Reflexes (right/left): 1+ throughout. Plantars are mute bilaterally. Some of the workup during his hospital visit consisted of: Orthostatic is negative. Vitamin B-12 is 509, folate is 15.3, TSH is 0.030 but the free T4 0.92. Hemoglobin A1c 6.9 CT head is reported as no acute intracranial hemorrhage or midline shift. No significant change from prior CT. 2-D echo was reported as technically difficult study for agitation. Poorly visualized echocardiogram. Normal left ventricle systolic function. TSH is 0.030. Serum glucose is 136. CTA head and neck: No significant abnormality seen. No significant change from prior CTA study. - Labs CBC & Chem 7: 11/07/22 17:31 11/07/22 17:31 Labs: Abnormal Lab Results - Last 24 Hours (Table) 11/08/22 Range/Units 08:56 Hemoglobin A1c 6.9 H (0.0-6.0) % Assessment and Plan Assessment: Acute Vertigo for past one week and it appears peripheral--improving. Numbness of both hands appears more carpal tunnel History of peripheral neuropathy and lower extremity Diabetes and recent HbA1c 6.9 (has hx of borderline DM) Chest pain Morbid obesity Plan: Patient does not want to pursue with MRI since he feels his dizziness as improve and I feel this is more peripheral. He is in agreement that if she continues to have worsening of dizziness then he'll pursue MRI as an outpatient. He was notified to follow up with a primary if any further dizziness. Recommend the patient to obtain EMG with nerve conduction study of the upper for possibility of carpal tunnel syndrome. Cardiology is consulted We'll defer the rest of the medical management to primary team Treatment the patient to follow-up with a neurologist in outpatient within 1-2 weeks. The plan was discussed with the patient. There is no further neurological work-up. Will sign off. Please reconsult if needed. Time with Patient: Less than 30
[2022-11-09] MEDS: FLUTICASONE 110 MCG INHALER INHALATION SCH (12:09)
[2022-11-09 16:40] VITALS: BP 158/83; PULSE 90; RESP 16; TEMP 98.3
--- NOTE | 2022-12-13 18:59 | P.DS ---
Providers Date of admission: 11/07/22 21:06 Expected date of discharge: 11/09/22 Attending physician: Duong Bales Consults: 11/07/22 21:05 Consult Physician Urgent Consulting Provider: [place]o Consult Reason/Comments: Chest pain, dizziness Do you want consulting provider notified?: Yes 11/08/22 08:18 Consult Physician Routine Consulting Provider: Dru Mclean Consult Reason/Comments: dizziness and worsening numbness Do you want consulting provider notified?: Yes Primary care physician: Marco Scott Miriam Hospital Course: 62 years old male with multiple medical problems including asthma/COPD, hypertension, hyperlipidemia, diabetes mellitus (pt states he has prediabestes and he was taking metformin when he was on steroid before but not now), osteoarthritis Patient presents because of dizziness, he says that he is was having back pain last Saturday which is resolved but associated with some chest pressure, he did not feel well over the last 1-2 days, he says that he feels dizziness without vertigo and without presyncope but developed imbalance problem also has been complaining of from worsening numbness in his legs, patient states that he has history of peripheral neuropathy but he thinks now is getting worse. Currently denies back pain. He feels weaker generally , he feels more tingly as well. Currently he denies chest pain, he has chronic dyspnea and he is on oxygen at home for the last 2 years after he was diagnosed with Covid, no coughing. Denies any change in urine or bowel habits, no vomiting diarrhea or abdominal pain, no dysuria or urgency. He denies headache. He denies smoking alcohol or illicit drugs Patient is afebrile and vitals are stable, mildly tachypneic Unremarkable CBC, INR, BMP and liver enzymes. ProBNP less than 11 troponin less than 0.012. D-dimer slightly high at 0.6 which is adjusted for age. Urine analysis is negative for infection Viruses are undetected including influenza, RSV and coronavirus Chest x-ray: Negative process EKG: Normal sinus rhythm at [address]-T changes Patient did not receive any medication emergency room and was admitted with cardiology consult Acute Vertigo for past one week and it appears peripheral--improving. Numbness of both hands appears more carpal tunnel History of peripheral neuropathy and lower extremity Diabetes and recent HbA1c 6.9 (has hx of borderline DM) Chest pain Morbid obesity Plan: Patient does not want to pursue with MRI since he feels his dizziness as improve and I feel this is more peripheral. He is in agreement that if she continues to have worsening of dizziness then he'll pursue MRI as an outpatient. He was notified to follow up with a primary if any further dizziness. Recommend the patient to obtain EMG with nerve conduction study of the upper for possibility of carpal tunnel syndrome. Cardiology is consulted We'll defer the rest of the medical management to primary team Treatment the patient to follow-up with a neurologist in outpatient within 1-2 weeks. Plan - Discharge Summary Discharge Rx Participant: No New Discharge Prescriptions: Continue Montelukast Sodium [Singulair] 10 mg PO DAILY Fluticasone Propionate [Flovent Hfa 220 mcg] 2 puff INHALATION RT-BID Albuterol Inhaler [Ventolin Hfa Inhaler] 2 puff INHALATION RT-Q4H PRN PRN Reason: Shortness Of Breath lisinopriL [Prinivil] 20 mg PO HS Magnesium 250 mg PO PC-SUPPER Ascorbic Acid [Vitamin C] 1,000 mg PO PC-SUPPER Acetaminophen [Tylenol Arthritis] 650 mg PO Q6H PRN PRN Reason: Fever And/ Or Pain Ipratropium-Albuterol Nebulize [Duoneb 0.5 mg-3 mg/3 ml Soln] 3 ml INHALATION RT-Q6H Zinc Gluconate [Zinc] 50 mg PO PC-SUPPER Nitroglycerin Sl Tabs [Nitrostat] 0.4 mg SUBLINGUAL Q5M PRN PRN Reason: Chest Pain Cholecalciferol [Vitamin D3 (125 Mcg = 5000 Iu)] 125 mcg PO PC-SUPPER Discharge Medication List Montelukast Sodium [Singulair] 10 mg PO DAILY 05/18/18 [History] Fluticasone Propionate [Flovent Hfa 220 mcg] 2 puff INHALATION RT-BID 06/16/20 [History] Albuterol Inhaler [Ventolin Hfa Inhaler] 2 puff INHALATION RT-Q4H PRN 02/05/22 [History] Acetaminophen [Tylenol Arthritis] 650 mg PO Q6H PRN 09/22/22 [History] Ascorbic Acid [Vitamin C] 1,000 mg PO PC-SUPPER 09/22/22 [History] Magnesium 250 mg PO PC-SUPPER 09/22/22 [History] Nitroglycerin Sl Tabs [Nitrostat] 0.4 mg SUBLINGUAL Q5M PRN 09/22/22 [History] Zinc Gluconate [Zinc] 50 mg PO PC-SUPPER 09/22/22 [History] lisinopriL [Prinivil] 20 mg PO HS 09/22/22 [History] Cholecalciferol [Vitamin D3 (125 Mcg = 5000 Iu)] 125 mcg PO PC-SUPPER 11/07/22 [History] Ipratropium-Albuterol Nebulize [Duoneb 0.5 mg-3 mg/3 ml Soln] 3 ml INHALATION RT-Q6H 11/07/22 [History] Follow up Appointment(s)/Referral(s): Gregor Wright MD [STAFF PHYSICIAN] - 1 Week (recommend outpatient stress test) Marco Zamora MD [Primary Care Provider] - 1-2 days Activity/Diet/Wound Care/Special Instructions: Recommend for outpatient MRI of brain by neurology Discharge Disposition: HOME SELF-CARE
== END 2022-11-09 17:32 | disposition home or self-care (01) ==
LOC: EC 17:00 → OBSVTOIN 21:06 → INTOOBSV 21:06 → 4SSUR 21:06 → 6NMEDSUR 11-08 08:23 → UNDODISIN 11-09 17:32
PROVIDERS: ADMIT Hospitalist; ATTEND Hospitalist
DX: R07.89 Other chest pain (principal); R42 Dizziness and giddiness; J44.9 Chronic obstructive pulmonary disease, unspecified; E78.5 Hyperlipidemia, unspecified; I10 Essential (primary) hypertension; E11.42 Type 2 diabetes mellitus with diabetic polyneuropathy; J96.11 Chronic respiratory failure with hypoxia; M17.11 Unilateral primary osteoarthritis, right knee; E66.01 Morbid (severe) obesity due to excess calories; I07.1 Rheumatic tricuspid insufficiency; Z99.81 Dependence on supplemental oxygen; Z79.899 Other long term (current) drug therapy; Z88.8 Allergy status to other drugs, medicaments and biological substances; Z87.891 Personal history of nicotine dependence; Z80.41 Family history of malignant neoplasm of ovary; Z63.4 Disappearance and death of family member; Z83.79 Family history of other diseases of the digestive system; Z82.49 Family history of ischemic heart disease and other diseases of the circulatory system; Z86.16 Personal history of COVID-19; Z20.822 Contact with and (suspected) exposure to COVID-19; Z68.43 Body mass index [BMI] 50.0-59.9, adult
CPT/HCPCS: 99285; 36415; 94640 ×5; 94760 ×2; 93005; 93306; 85379; 84439; 83880; 80053; 84443; 82607; 82746; 83735; 84484 ×2; 85025; 85610; 85730; 81003; 83036; 87636; 71046; 70496; 70450; 70498; G0378 ×3; Q9950; Q9967

== ENCOUNTER 2023-03-09 06:50 | Emergency (ER) | payer BC ==
[2023-03-09] MEDS ORDERED: SODIUM CHLORIDE 0.9% 1,000 ML IV STA (07:00)
[2023-03-09] MEDS ORDERED: ONDANSETRON 4 MG/2 ML VIAL IVP STA (07:07)
[2023-03-09] MEDS ORDERED: KETOROLAC 15 MG/ML 1 ML VIAL IVP STA (07:07)
--- NOTE | 2023-03-09 07:09 | ED ---
Abdominal Pain HPI - General Chief Complaint: Abdominal Pain Stated Complaint: Back Pain, Abd Pain Time Seen by Provider: 03/09/23 06:59 Source: patient Mode of arrival: wheelchair Limitations: no limitations - History of Present Illness Initial Comments: Patient is a 62-year-old male who presents to the emergency department for back pain. Patient reports pain in his right lower back for the past 3 days. The pain is positional states he does not have it at rest only with moving and sitting up. No numbness or tingling. No loss of bowel or bladder function. States he feels fullness in his right side. He denies injury but does admit to a lot of twisting at work. No tearing or ripping type pain. Denies chest pain and shortness of breath. He reports nausea no vomiting. No fever, chills, urinary symptoms. Patient does have history of kidney stone and fatty liver. - Related Data Home Medications Medication Instructions Recorded Confirmed Montelukast Sodium [Singulair] 10 mg PO DAILY 05/18/18 11/07/22 Fluticasone Propionate [Flovent 2 puff INHALATION RT-BID 06/16/20 11/07/22 Hfa 220 mcg] Albuterol Inhaler [Ventolin Hfa 2 puff INHALATION RT-Q4H PRN 02/05/22 11/07/22 Inhaler] Acetaminophen [Tylenol Arthritis] 650 mg PO Q6H PRN 09/22/22 11/07/22 Ascorbic Acid [Vitamin C] 1,000 mg PO PC-SUPPER 09/22/22 11/07/22 Magnesium 250 mg PO PC-SUPPER 09/22/22 11/07/22 Nitroglycerin Sl Tabs [Nitrostat] 0.4 mg SUBLINGUAL Q5M PRN 09/22/22 11/07/22 Zinc Gluconate [Zinc] 50 mg PO PC-SUPPER 09/22/22 11/07/22 lisinopriL [Prinivil] 20 mg PO HS 09/22/22 11/07/22 Cholecalciferol [Vitamin D3 (125 125 mcg PO PC-SUPPER 11/07/22 11/07/22 Mcg = 5000 Iu)] Ipratropium-Albuterol Nebulize 3 ml INHALATION RT-Q6H 11/07/22 11/07/22 [Duoneb 0.5 mg-3 mg/3 ml Soln] Previous Rx's Medication Instructions Recorded Cyclobenzaprine [Flexeril] 10 mg PO TID PRN #15 tab 03/09/23 Ibuprofen [Motrin] 800 mg PO Q8HR PRN #30 tab 03/09/23 Lidocaine 5% Patch [Lidoderm 5% 1 patch TOPICAL DAILY PRN #7 patch 03/09/23 Patch] Allergies Allergy/AdvReac Type Severity Reaction Status Date / Time [id number] Reductase AdvReac MUSCLE PAIN Verified 03/09/23 06:54 Inhibitor [Llrgwzz-Pkg-Faq Reductase Inhibitor] Review of Systems ROS Statement: Those systems with pertinent positive or pertinent negative responses have been documented in the HPI. ROS Other: All systems not noted in ROS Statement are negative. Past Medical History Past Medical History: Asthma, COPD, Diabetes Mellitus, Hyperlipidemia, Hypertension, Osteoarthritis (OA) Additional Past Medical History / Comment(s): Persistent asthma, NIDDM II- arthritis R knee, COVID + History of Any Multi-Drug Resistant Organisms: None Reported Past Surgical History: Hernia Repair Additional Past Surgical History / Comment(s): Umbilical hernia repair Past Anesthesia/Blood Transfusion Reactions: Motion Sickness Past Psychological History: No Psychological Hx Reported Smoking Status: Former smoker Past Alcohol Use History: None Reported Past Drug Use History: None Reported - Past Family History Mother History Unknown: Yes Family Medical History: Cancer Additional Family Medical History / Comment(s): Mother of ovarian cancer at the age of 78yrs. Father History Unknown: Yes Family Medical History: GI Bleed Additional Family Medical History / Comment(s): Father around age 50 from a bleeding ulcer. Brother(s) Family Medical History: No Reported History Additional Family Medical History / Comment(s): The patient has 2 brothers and one from pneumonia at age 59, 1 is alive with history of bariatric surgery. Sister(s) Family Medical History: No Reported History Additional Family Medical History / Comment(s): Patient has 2 sisters and one has history of gallbladder disease. Daughter(s) Family Medical History: Unable to Obtain Additional Family Medical History / Comment(s): Patient has one daughter with no major medical problems. Son(s) Additional Family Medical History / Comment(s): Patient has 2 sons and one has hypertension. General Exam Limitations: no limitations General appearance: alert, in no apparent distress Head exam: Present: atraumatic, normocephalic, normal inspection Eye exam: Present: normal appearance, PERRL, EOMI. Absent: scleral icterus, conjunctival injection, periorbital swelling Respiratory exam: Present: normal lung sounds bilaterally. Absent: respiratory distress, wheezes, rales, rhonchi, stridor Cardiovascular Exam: Present: regular rate, normal rhythm, normal heart sounds. Absent: systolic murmur, diastolic murmur, rubs, gallop, clicks GI/Abdominal exam: Present: soft, normal bowel sounds. Absent: distended, tenderness, guarding, rebound, rigid Back exam: Present: normal inspection, full ROM, paraspinal tenderness (lumbar). Absent: CVA tenderness (R), CVA tenderness (L), vertebral tenderness Neurological exam: Present: alert, oriented X3, CN II-XII intact Psychiatric exam: Present: normal affect, normal mood Skin exam: Present: warm, dry, intact, normal color. Absent: rash Course Vital Signs 03/09/23 03/09/23 06:51 08:50 Temperature 98.6 F 97.7 F Pulse Rate 103 H 83 Respiratory 20 18 Rate Blood Pressure 151/92 162/93 O2 Sat by Pulse 97 98 Oximetry Medical Decision Making - Medical Decision Making EKG taken at 7:02, interpreted by myself Sinus rhythm, incomplete right bundle-branch block, no ST changes Ventricular rate 88, AL interval 179, QRS duration 112, QTC 399 Was pt. sent in by a medical professional or institution (, PA, VIDEO PLAYER MECHANIC, urgent care, hospital, or retirement...) When possible be specific @ -No Did you speak to anyone other than the patient for history (EMS, parent, family, police, friend...)? What history was obtained from this source @ -No Did you review nursing and triage notes (agree or disagree)? Why? @ -I reviewed and agree with nursing and triage notes Were old charts reviewed (outside hosp., previous admission, EMS record, old EKG, old radiological studies, urgent care reports/EKG's, retirement records)? Report findings @ -No old charts were reviewed Differential Diagnosis (chest pain, altered mental status, abdominal pain women, abdominal pain men, vaginal bleeding, weakness, fever, dyspnea, syncope, headache, dizziness, GI bleed, back pain, seizure, CVA, palpatations, mental health)? @ -Differential Back Pain: Strain, zoster, cauda equina syndrome, epidural abscess, vertebral osteomyelitis, discitis, fracture, subluxation, disc herniation, DJD, spinal stenosis, dissection, AAA, pancreatitis, peptic ulcer disease, pyelonephritis, kidney stone, this is not meant to be an all-inclusive list. EKG interpreted by me (3pts min.). @ -As above X-rays interpreted by me (1pt min.). @ -None done CT interpreted by me (1pt min.). @ -No acute changes in the abdomen or pelvis. There is stable 8 millimeter nodule in the right lung base U/S interpreted by me (1pt. min.). @ -None done What testing was considered but not performed or refused? (CT, X-rays, U/S, labs)? Why? @ -None What meds were considered but not given or refused? Why? @ -None Did you discuss the management of the patient with other professionals (professionals i.e. , PA, VIDEO PLAYER MECHANIC, lab, RT, psych nurse, social media content specialist, state epidemiologist, teacher, building drafting officer, case investigator)? Give summary @ -No Was smoking cessation discussed for >3mins.? @ -No Was critical care preformed (if so, how long)? @ -No Were there social determinants of health that impacted care today? How? (Homelessness, low income, unemployed, alcoholism, drug addiction, transportation, low edu. Level, literacy, decrease access to med. care, alf, rehab)? @ -No Was there de-escalation of care discussed even if they declined (Discuss DNR or withdrawal of care, Hospice)? DNR status @ -No What co-morbidities impacted this encounter? (DM, HTN, Smoking, COPD, CAD, Cancer, CVA, ARF, Chemo, Hep., AIDS, mental health diagnosis, sleep apnea, m orbid obesity)? @ -None Was patient admitted / discharged? Hospital course, mention meds given and route, prescriptions, significant lab abnormalities, going to OR and other pertinent info. @ -Patient presented with back pain. His most consistent with musculoskeletal nature however with patient's history of kidney stones and fatty liver with nonspecific symptoms of right-sided fullness and nausea further testing with laboratory studies and CT imaging was obtained. Labs unremarkable. No leukocytosis no abnormal liver enzymes. Patient unable to give urine sample. CT interpreted by myself/radiology showing no acute changes in the abdomen or pelvis. There is a stable 8 mm nodule in the right lung base. Symptoms improved after treatment in the emergency department. Results discussed with patient he is aware of lung nodule. Discussed symptomatic treatment for possible lumbar strain at home patient discharged in stable condit ion Undiagnosed new problem with uncertain prognosis? @ -No Drug Therapy requiring intensive monitoring for toxicity (Heparin, Nitro, Insulin, Cardizem)? @ -No Were any procedures done? @ -No Diagnosis/symptom? @ Mechanical back pain Acute, or Chronic, or Acute on Chronic? @Acute Uncomplicated (without systemic symptoms) or Complicated (systemic symptoms)? @ -Uncomplicated Side effects of treatment? @ -No Exacerbation, Progression, or Severe Exacerbation? @ -No Poses a threat to life or bodily function? How? (Chest pain, USA, IA, pneumonia, PE, COPD, DKA, ARF, appy, cholecystitis, CVA, Diverticulitis, Homicidal, Suicidal, threat to staff... and all critical care pts) @ -No Dr. Clarke is my attending - Lab Data Result diagrams: 03/09/23 07:20 03/09/23 07:20 Lab Results 03/09/23 03/09/23 03/09/23 Range/Units 07:20 07:20 07:20 WBC 6.9 (3.8-10.6) k/uL RBC 4.98 (4.30-5.90) m/uL Hgb 15.3 (13.0-17.5) gm/dL Hct 46.9 (39.0-53.0) % MCV 94.2 (80.0-100.0) fL MCH 30.7 (25.0-35.0) pg MCHC 32.6 (31.0-37.0) g/dL RDW 13.2 (11.5-15.5) % Plt Count 310 (150-450) k/uL MPV 6.7 Neutrophils % 48 % Lymphocytes % 37 % Monocytes % 9 % Eosinophils % 4 % Basophils % 0 % Neutrophils # 3.3 (1.3-7.7) k/uL Lymphocytes # 2.6 (1.0-4.8) k/uL Monocytes # 0.6 (0-1.0) k/uL Eosinophils # 0.3 (0-0.7) k/uL Basophils # 0.0 (0-0.2) k/uL Sodium 138 (137-145) mmol/L Potassium 4.0 (3.5-5.1) mmol/L Chloride 104 (98-107) mmol/L Carbon Dioxide 28 (22-30) mmol/L Anion Gap 6 mmol/L BUN 16 (9-20) mg/dL Creatinine 0.77 (0.66-1.25) mg/dL Est GFR (CKD-EPI)AfAm >90 (>60 ml/min/1.73 sqM) Est GFR (CKD-EPI)NonAf >90 (>60 ml/min/1.73 sqM) Glucose 120 H (74-99) mg/dL Plasma Lactic Acid Jorge 1.2 (0.7-2.0) mmol/L Calcium 8.7 (8.4-10.2) mg/dL Total Bilirubin 0.7 (0.2-1.3) mg/dL AST 20 (17-59) U/L ALT 18 (4-49) U/L Alkaline Phosphatase 67 (38-126) U/L Total Protein 6.5 (6.3-8.2) g/dL Albumin 4.0 (3.5-5.0) g/dL Lipase 82 (23-300) U/L Disposition Clinical Impression: Mechanical back pain Disposition: HOME SELF-CARE Condition: Good Instructions (If sedation given, give patient instructions): Low Back Strain (ED), Back Pain (ED) Additional Instructions: Take medications as directed. Do not drink alcohol or operate machinery while taking Flexeril as it can cause drowsiness. Follow-up with primary care provider in one to days. Return to emergency department if you experience new, concerning, or worsening symptoms. Prescriptions: Cyclobenzaprine [Flexeril] 10 mg PO TID PRN #15 tab PRN Reason: Muscle Spasm Lidocaine 5% Patch [Lidoderm 5% Patch] 1 patch TOPICAL DAILY PRN #7 patch PRN Reason: Pain Ibuprofen [Motrin] 800 mg PO Q8HR PRN #30 tab PRN Reason: Pain Is patient prescribed a controlled substance at d/c from ED?: No Referrals: Marco Zamora MD [Primary Care Provider] - 1-2 days
[2023-03-09] MEDS ORDERED: LIDOCAINE 5% PATCH TOPICAL STA (07:21)
[2023-03-09 07:48] LABS: Basophils % (A) 0 %; Eosinophils # (A) 0.3 k/uL (0-0.7); Eosinophils % (A) 4 %; HCT 46.9 % (39.0-53.0); HGB 15.3 gm/dL (13.0-17.5); Lymphocytes # (A) 2.6 k/uL (1.0-4.8); Lymphocytes % (A) 37 %; MCH 30.7 pg (25.0-35.0); MCHC 32.6 g/dL (31.0-37.0); MCV 94.2 fL (80.0-100.0); Mean Platelet Volume 6.7; Monocytes # (A) 0.6 k/uL (0-1.0); Monocytes % (A) 9 %; Neutrophils # (A) 3.3 k/uL (1.3-7.7); Neutrophils % (A) 48 %; Platelet Count 310 k/uL (150-450); RBC 4.98 m/uL (4.30-5.90); RDW 13.2 % (11.5-15.5); WBC 6.9 k/uL (3.8-10.6)
[2023-03-09 07:57] LABS: ALT 18 U/L (4-49); AST 20 U/L (17-59); African American GFR (CKD) >90 (>60 ml/min/1.73 sqM); Alkaline Phosphatase 67 U/L (38-126); Anion Gap 6 mmol/L; Blood Urea Nitrogen 16 mg/dL (9-20); Calcium 8.7 mg/dL (8.4-10.2); Carbon Dioxide 28 mmol/L (22-30); Chloride 104 mmol/L (98-107); Glucose 120 mg/dL (74-99); Lipase 82 U/L (23-300); Non-African American GFR(CKD) >90 (>60 ml/min/1.73 sqM); Sodium 138 mmol/L (137-145); Total Bilirubin 0.7 mg/dL (0.2-1.3); Total Protein 6.5 g/dL (6.3-8.2)
--- NOTE | 2023-03-09 08:18 | CT ---
EXAMINATION TYPE: CT abdomen pelvis wo con DATE OF EXAM: 03/09/2023 COMPARISON: 10/30/2018 HISTORY: Right back/side pain CT DLP: 2400.9 mGycm Automated exposure control for dose reduction was used. TECHNIQUE: Helical acquisition of images was performed from the lung bases through the pelvis. FINDINGS: There is a stable 8 mm right lung base nodule. The lungs are otherwise clear. The gallbladder is normal without distention, wall thickening, gallstone or pericholecystic fluid. Th ere is no biliary ductal dilatation. There is no organomegaly involving the liver, pancreas, spleen or adrenal glands. There is an 8.4 mm nonobstructing right renal calculus which has increased in size since the prior st udy where it previously measured approximately 3 to 4 mm. There is a second new tiny marcy-like nonob structing calcifications in the right kidney as well. There are no left renal calcifications. There is no hydronephrosis. The bowel loops are normal and there is no dilatation or obstruction. No inflammatory changes are katarina ntified in the bowel wall or mesentery and there is no free intraperitoneal air or fluid. There is no pelvic mass, free fluid, abscess or adenopathy. There is mild prostatic calcification. The osseous structures are intact. IMPRESSION: 1. Nonobstructing right renal calcifications 2. Stable 8 mm nodule in the right lung base. 3. No acute changes within the abdomen or pelvis.
[2023-03-09 08:59] VITALS: BP 162/93; PULSE 83; RESP 18; TEMP 97.7
== END 2023-03-09 08:50 | disposition home or self-care (01) ==
LOC: EC 06:50
DX: M54.50 Low back pain, unspecified (principal); R11.0 Nausea; E11.9 Type 2 diabetes mellitus without complications; I10 Essential (primary) hypertension; J44.9 Chronic obstructive pulmonary disease, unspecified; Z79.51 Long term (current) use of inhaled steroids; Z79.899 Other long term (current) drug therapy; Z88.8 Allergy status to other drugs, medicaments and biological substances; Z87.891 Personal history of nicotine dependence; Z86.16 Personal history of COVID-19
CPT/HCPCS: 36415; 93005; 80053; 83605; 83690; 85025; 74176; 99284; 96374; 96361; J2405

== ENCOUNTER 2023-06-03 00:30 | Observation (INO) | payer BC ==
--- NOTE | 2023-06-03 00:53 | ED ---
Chest Pain HPI - General Chief Complaint: Chest Pain Stated Complaint: Chest Pain Swelling Time Seen by Provider: 06/03/23 00:53 Source: patient, RN notes reviewed, old records reviewed Mode of arrival: wheelchair Limitations: no limitations - History of Present Illness Initial Comments: This is a 63-year-old male to the emergency department for evaluation. Patient to the emergency department today for evaluation regards to chest pain. Patient also is complaining of shortness of breath with exertion weakness lightheadedness and dizziness with lower extremity edema. 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 MD Complaint: chest pain -: hour(s) Onset: during rest, during exertion Pain Location: substernal Pain Radiation: none Severity: moderate Severity scale (1-10): 4 Quality: tightness Consistency: constant Improves With: nothing Worsens With: nothing Context: recent illness Anginal Symptoms: sense of impending doom Other Symptoms: palpitations Treatments Prior to Arrival: none - Related Data Home Medications Medication Instructions Recorded Confirmed Montelukast Sodium [Singulair] 10 mg PO DAILY@1400 05/18/18 06/03/23 Fluticasone Propionate [Flovent 2 puff INHALATION RT-BID 06/16/20 06/03/23 Hfa 220 mcg] Albuterol Inhaler [Ventolin Hfa 2 puff INHALATION RT-Q4H PRN 02/05/22 06/03/23 Inhaler] Albuterol Nebulized [Ventolin 2.5 mg INHALATION RT-QID PRN 06/03/23 06/03/23 Nebulized] metFORMIN HCL 500 mg PO PC-SUPPER 06/03/23 06/03/23 Previous Rx's Medication Instructions Recorded lisinopriL [Zestril] 20 mg PO BID #60 tab 06/04/23 Allergies Allergy/AdvReac Type Severity Reaction Status Date / Time adhesive Allergy Rash/Hives Verified 06/03/23 08:26 Bzyyrjy-DFY-IpC Reductase AdvReac MUSCLE PAIN Verified 06/03/23 08:26 Inhibitor [Jnrqvrw-Klx-Caz Reductase Inhibitor] Review of Systems ROS Statement: Those systems with pertinent positive or pertinent negative responses have been documented in the HPI. ROS Other: All systems not noted in ROS Statement are negative. EKG Findings - EKG Comments: EKG Findings:: EKG is sinus 73 LA 132 QRS 15 QTC 392 - EKG Results: EKG: interpreted by JUSTIN Past Medical History Past Medical History: Asthma, COPD, Diabetes Mellitus, Hyperlipidemia, Hypertension, Osteoarthritis (OA) Additional Past Medical History / Comment(s): Persistent asthma, NIDDM II- arthritis R knee, COVID + History of Any Multi-Drug Resistant Organisms: None Reported Past Surgical History: Hernia Repair Additional Past Surgical History / Comment(s): Umbilical hernia repair Past Anesthesia/Blood Transfusion Reactions: Motion Sickness Past Psychological History: No Psychological Hx Reported Smoking Status: Former smoker Past Alcohol Use History: None Reported Past Drug Use History: None Reported - Past Family History Mother History Unknown: Yes Family Medical History: Cancer Additional Family Medical History / Comment(s): Mother of ovarian cancer at the age of 78yrs. Father History Unknown: Yes Family Medical History: GI Bleed Additional Family Medical History / Comment(s): Father around age 50 from a bleeding ulcer. Brother(s) Family Medical History: No Reported History Additional Family Medical History / Comment(s): The patient has 2 brothers and one from pneumonia at age 59, 1 is alive with history of bariatric surgery. Sister(s) Family Medical History: No Reported History Additional Family Medical History / Comment(s): Patient has 2 sisters and one has history of gallbladder disease. Daughter(s) Family Medical History: Unable to Obtain Additional Family Medical History / Comment(s): Patient has one daughter with no major medical problems. Son(s) Additional Family Medical History / Comment(s): Patient has 2 sons and one has hypertension. General Exam Limitations: no limitations General appearance: alert, in no apparent distress Head exam: Present: atraumatic, normocephalic, normal inspection Eye exam: Present: normal appearance, PERRL, EOMI. Absent: scleral icterus, conjunctival injection, periorbital swelling ENT exam: Present: normal exam, mucous membranes moist Neck exam: Present: normal inspection. Absent: tenderness, meningismus, lymphadenopathy Respiratory exam: Present: normal lung sounds bilaterally. Absent: respiratory distress, wheezes, rales, rhonchi, stridor Cardiovascular Exam: Present: regular rate, normal rhythm, normal heart sounds. Absent: systolic murmur, diastolic murmur, rubs, gallop, clicks GI/Abdominal exam: Present: soft, normal bowel sounds. Absent: distended, tenderness, guarding, rebound, rigid Extremities exam: Present: normal inspection, full ROM, normal capillary refill. Absent: tenderness, pedal edema, joint swelling, calf tenderness Back exam: Present: normal inspection Neurological exam: Present: alert, oriented X3, CN II-XII intact Psychiatric exam: Present: normal affect, normal mood Skin exam: Present: warm, dry, intact, normal color. Absent: rash Course Vital Signs 06/03/23 06/03/23 06/03/23 00:35 02:08 02:25 Temperature 97.9 F Pulse Rate 94 75 77 Pulse Rate [ Sitting Pulse Oximetery] Pulse Rate [ Standing Pulse Oximetery] Pulse Rate [ Supine Pulse Oximetery] Respiratory 18 14 Rate Blood Pressure 109/68 97/59 119/71 Blood Pressure [Left Arm Sitting] Blood Pressure [Left Arm Standing] Blood Pressure [Left Arm Supine] O2 Sat by Pulse 99 98 99 Oximetry 06/03/23 06/03/23 06/03/23 03:10 03:20 04:28 Temperature Pulse Rate 80 83 80 Pulse Rate [ Sitting Pulse Oximetery] Pulse Rate [ Standing Pulse Oximetery] Pulse Rate [ Supine Pulse Oximetery] Respiratory 16 Rate Blood Pressure 125/70 Blood Pressure [Left Arm Sitting] Blood Pressure [Left Arm Standing] Blood Pressure [Left Arm Supine] O2 Sat by Pulse 99 Oximetry 06/03/23 06/03/23 06/03/23 05:59 07:52 08:16 Temperature Pulse Rate 81 83 93 Pulse Rate [ Sitting Pulse Oximetery] Pulse Rate [ Standing Pulse Oximetery] Pulse Rate [ Supine Pulse Oximetery] Respiratory 16 18 Rate Blood Pressure 116/73 122/67 Blood Pressure [Left Arm Sitting] Blood Pressure [Left Arm Standing] Blood Pressure [Left Arm Supine] O2 Sat by Pulse 97 98 Oximetry 06/03/23 06/03/23 06/03/23 08:26 09:00 10:00 Temperature Pulse Rate 87 103 H 100 Pulse Rate [ Sitting Pulse Oximetery] Pulse Rate [ Standing Pulse Oximetery] Pulse Rate [ Supine Pulse Oximetery] Respiratory 19 19 Rate Blood Pressure 138/85 117/74 Blood Pressure [Left Arm Sitting] Blood Pressure [Left Arm Standing] Blood Pressure [Left Arm Supine] O2 Sat by Pulse 96 96 Oximetry 06/03/23 06/03/23 06/03/23 11:00 12:00 12:08 Temperature Pulse Rate 105 H 110 H 108 H Pulse Rate [ Sitting Pulse Oximetery] Pulse Rate [ Standing Pulse Oximetery] Pulse Rate [ Supine Pulse Oximetery] Respiratory 18 18 Rate Blood Pressure 134/76 119/67 Blood Pressure [Left Arm Sitting] Blood Pressure [Left Arm Standing] Blood Pressure [Left Arm Supine] O2 Sat by Pulse 97 96 Oximetry 06/03/23 06/03/23 06/03/23 12:22 13:00 13:58 Temperature Pulse Rate 112 H 110 H 117 H Pulse Rate [ Sitting Pulse Oximetery] Pulse Rate [ Standing Pulse Oximetery] Pulse Rate [ Supine Pulse Oximetery] Respiratory 19 18 Rate Blood Pressure 141/80 139/75 Blood Pressure [Left Arm Sitting] Blood Pressure [Left Arm Standing] Blood Pressure [Left Arm Supine] O2 Sat by Pulse 95 96 Oximetry 06/03/23 06/03/23 06/03/23 14:08 15:00 17:00 Temperature Pulse Rate 112 H 110 H Pulse Rate [ 117 H Sitting Pulse Oximetery] Pulse Rate [ 121 H Standing Pulse Oximetery] Pulse Rate [ 113 H Supine Pulse Oximetery] Respiratory 18 18 Rate Blood Pressure 134/65 160/96 Blood Pressure 139/75 [Left Arm Sitting] Blood Pressure 145/83 [Left Arm Standing] Blood Pressure 138/75 [Left Arm Supine] O2 Sat by Pulse 97 97 Oximetry 06/03/23 06/03/23 06/03/23 18:00 20:45 20:51 Temperature Pulse Rate 110 H 108 H 110 H Pulse Rate [ Sitting Pulse Oximetery] Pulse Rate [ Standing Pulse Oximetery] Pulse Rate [ Supine Pulse Oximetery] Respiratory 18 18 Rate Blood Pressure 133/87 129/82 Blood Pressure [Left Arm Sitting] Blood Pressure [Left Arm Standing] Blood Pressure [Left Arm Supine] O2 Sat by Pulse 97 95 Oximetry - Reevaluation(s) Reevaluation #1: 06/03/23 00:58 Medical record is reviewed Reevaluation #2: 06/03/23 02:24 Patient still does not feel well Reevaluation #3: 06/03/23 02:24 Patient informed results and questions answered Reevaluation #4: 06/03/23 00:59 Was pt. sent in by a medical professional or institution ([facility], TEACHER TUTOR, urgent care, hospital, or fpc...) When possible be specific @ -no Did you speak to anyone other than the patient for history (EMS, parent, family, police, friend...)? What history was obtained from this source @ -no Did you review nursing and triage notes (agree or disagree)? Why? @ -agree Are old charts reviewed (outside hosp., previous admission, EMS record, old EKG, old radiological studies, urgent care reports/EKG's, fpc records)? Report findings @ -yes Differential Diagnosis (chest pain, altered mental status, abdominal pain women, abdominal pain men, vaginal bleeding, weakness, fever, dyspnea, syncope, headache, dizziness, GI bleed, back pain, seizure, CVA, palpatations, mental health, musculoskeletal)? @ -prior EKG interpreted by me (3pts min.). @ -yes X-rays interpreted by me (1pt min.). @ -yes CT interpreted by me (1pt min.). @ -no U/S interpreted by me (1pt. min.). @ -no What testing was considered but not performed or refused? (CT, X-rays, U/S, labs)? Why? @ -none What meds were considered but not given or refused? Why? @ -none Did you discuss the management of the patient with other professionals (professionals i.e. KYL[facility] Wakefield, TEACHER TUTOR, lab, RT, psych nurse, social media project manager, clock mechanic, teacher, highway patrol officer, counter caser)? Give summary @ -no Was smoking cessation discussed for >3mins.? @ -no Was critical care preformed (if so, how long)? @ -no Were there social determinants of health that impacted care today? How? (Homelessness, low income, unemployed, alcoholism, drug addiction, transportation, low edu. Level, literacy, decrease access to med. care, penitentiary, rehab)? @ -none Was there de-escalation of care discussed even if they declined (Discuss DNR or withdrawal of care, Hospice)? DNR status @ -no What co-morbidities impacted this encounter? (DM, HTN, Smoking, COPD, CAD, Cancer, CVA, ARF, Chemo, Hep., AIDS, mental health diagnosis, sleep apnea, morbid obesity)? @ -none Was patient admitted / discharged? Hospital course, mention meds given and route, prescriptions, significant lab abnormalities, going to OR and other pertinent info. @ - 63 male not feeling well with lightheadedness and dizziness and labile bloo d pressure borderline low here in the emergency department. Patient be admitted for chest pain observation Admitted Undiagnosed new problem with uncertain prognosis? @ -no Drug Therapy requiring intensive monitoring for toxicity (Heparin, Nitro, Insulin, Cardizem)? @ -no Were any procedures done? @ -no Diagnosis/symptom? @ -Chest pain dizziness hypotension Acute, or Chronic, or Acute on Chronic? @ -Acute Uncomplicated (without systemic symptoms) or Complicated (systemic symptoms)? @ -Complicated Side effects of treatment? @ -no Exacerbation, Progression, or Severe Exacerbation? @ -exacerbation Poses a threat to life or bodily function? How? (Chest pain, USA, IA, pneumonia, PE, COPD, DKA, ARF, appy, cholecystitis, CVA, Diverticulitis, Homicidal, Suicidal, threat to staff... and all critical care pts) @ -yes Reevaluation #5: 06/03/23 00:58 Differential Chest Pain: Stable Angina, Unstable Angina, STEMI, NSTEMI Aortic Dissection, Pneumothorax, Musculoskeletal, Esophageal Spasm GERD, Cholecystitis, Pancreatitis, Zoster, this is not meant to be an all-inclusive list. - Consultations Consultation #1: Spoke with [facility] agree to admit this patient Chest Pain MDM - MDM 63 male not feeling well with lightheadedness and dizziness and labile blood pressure borderline low here in the emergency department. Patient be admitted for chest pain observation Critical Care Time Critical Care Time: Yes Total Critical Care Time: 31 Disposition Clinical Impression: Acute exacerbation of chronic obstructive pulmonary disease, Chest pressure, SOB (shortness of breath), Palpitations, Dizziness, Chest pain Disposition: ADMITTED IP TO THIS HOSP Condition: Fair Is patient prescribed a controlled substance at d/c from ED?: No Time of Disposition: 02:20
[2023-06-03 01:12] LABS: Basophils % (A) 0 %; Eosinophils # (A) 0.4 k/uL (0-0.7); Eosinophils % (A) 5 %; HCT 44.8 % (39.0-53.0); HGB 14.7 gm/dL (13.0-17.5); Lymphocytes # (A) 2.2 k/uL (1.0-4.8); Lymphocytes % (A) 29 %; MCH 31.3 pg (25.0-35.0); MCHC 32.7 g/dL (31.0-37.0); MCV 95.8 fL (80.0-100.0); Mean Platelet Volume 6.7; Monocytes # (A) 0.6 k/uL (0-1.0); Monocytes % (A) 8 %; Neutrophils # (A) 4.1 k/uL (1.3-7.7); Neutrophils % (A) 54 %; Platelet Count 291 k/uL (150-450); RBC 4.68 m/uL (4.30-5.90); RDW 13.6 % (11.5-15.5); WBC 7.5 k/uL (3.8-10.6)
[2023-06-03 01:17] LABS: ALT 14 U/L (4-49); AST 17 U/L (17-59); African American GFR (CKD) >90 (>60 ml/min/1.73 sqM); Albumin 3.7 g/dL (3.5-5.0); Alkaline Phosphatase 56 U/L (38-126); Anion Gap 6 mmol/L; Blood Urea Nitrogen 21 mg/dL (9-20); Calcium 8.8 mg/dL (8.4-10.2); Carbon Dioxide 28 mmol/L (22-30); Chloride 106 mmol/L (98-107); Glucose 135 mg/dL (74-99); Non-African American GFR(CKD) >90 (>60 ml/min/1.73 sqM); Potassium 4.3 mmol/L (3.5-5.1); Sodium 140 mmol/L (137-145); Total Bilirubin 0.4 mg/dL (0.2-1.3); Total Protein 6.2 g/dL (6.3-8.2)
[2023-06-03 01:26] LABS: NT-Pro-B-Type Natriuretic Pept <20 pg/mL
[2023-06-03 01:28] LABS: INR 0.9 (<1.2); Partial Thromboplastin Time 23.4 sec (22.0-30.0); Prothrombin Time 9.7 sec (9.0-12.0)
[2023-06-03] MEDS ORDERED: ONDANSETRON 4 MG/2 ML VIAL IVP PRN (02:26)
[2023-06-03] MEDS ORDERED: NALOXONE 0.4 MG/ML 1 ML VIAL IV PRN (02:26)
[2023-06-03] MEDS ORDERED: MORPHINE SULFATE 4 MG/ML SYRINGE IV PRN (02:26)
[2023-06-03] MEDS ORDERED: IPRATROPIUM-ALBUTEROL 3 ML NEB INHALATION STA (02:27)
[2023-06-03] MEDS ORDERED: methylPREDNISolone SOD SUCCI 125 MG/2 ML VIAL IV STA (02:27)
[2023-06-03] MEDS ORDERED: SODIUM CHLORIDE 0.9% 500 ML 500 ML IV STA (02:28)
[2023-06-03] MEDS ORDERED: SODIUM CHLORIDE 0.9% 1,000 ML IV STA (02:28)
[2023-06-03] MEDS: SODIUM CHLORIDE 0.9% 1,000 ML IV SCH ×2 (02:39→15:39)
--- NOTE | 2023-06-03 06:19 | XR ---
EXAM: XR Chest, 2 Views CLINICAL HISTORY: ITS.REASON XR Reason: Chest Pain TECHNIQUE: Frontal and lateral views of the chest. COMPARISON: 2 views of the chest November 07, 2022 IMPRESSION: 1. Increased airspace disease noted in the lower lungs on lateral imaging. Consider cross-sectional imaging if there is further concern. Findings may be infectious in nature. 2. Cardiomegaly.
[2023-06-03] MEDS: IPRATROPIUM-ALBUTEROL 3 ML NEB INHALATION PRN ×3 (08:16→20:43)
[2023-06-03] MEDS ORDERED: methylPREDNISolone SOD SUCCI 125 MG/2 ML VIAL IV SCH (09:00)
[2023-06-03] MEDS ORDERED: DEXTROSE 50% SYRINGE 50 ML IVP PRN ×2 (10:03)
--- NOTE | 2023-06-03 11:01 | P.CRDCN ---
History of Present Illness History of present illness: HISTORY OF PRESENT ILLNESS: This is a 63-year-old male with a past medical history significant for hypertension, hyperlipidemia, diabetes, heart palpitations, and morbid obesity. Patient follows in the office with Dr. Del Toro. We have been asked to see the patient in consultation for chest pain. Patient examined at the bedside in the emergency room. Patient presented to the hospital with a chief complaint of dizziness and lightheadedness. He also reports having some palpitations. He also reports that chest pain which she describes as a "weird sensation" but is unable to further characterize this. The patient was seen in the office by Dr. Del Toro nurse practitioner on 05/28/2023. Patient's lisinopril was increased to 40 mg a day. The patient was also given a 24-hour Holter monitor which he wore but results are not back yet. * EKG reveals sinus mechanism with incomplete right bundle ranch block. No signs of acute ischemia. * Chest xray cardiomegaly * Current home cardiac medications include lisinopril 20 mg daily * Most recent echocardiogram obtained in October 2022 revealing ejection fraction 55-60% * Patient underwent dobutamine stress test on 05/21/2023 with no evidence of distal ischemia. REVIEW OF SYSTEMS: At the time of my exam: CONSTITUTIONAL: Denies fever or chills. HEENT: Denies blurred vision, vision changes, or eye pain. Denies hemoptysis CARDIOVASCULAR: Denies chest pain. Denies orthopnea. Denies PND. Denies palpitations RESPIRATORY: Denies shortness of breath. GASTROINTESTINAL: Denies abdominal pain. Denies nausea or vomiting. HEMATOLOGIC: Denies bleeding disorders. GENITOURINARY: Denies any blood in urine. SKIN: Denies pruitis. Denies rash. PHYSICAL EXAM: VITAL SIGNS: Reviewed. GENERAL: Well-developed in no acute distress. HEENT: Head is normocephalic. Pupils are equal, round. Sclerae anicteric. Mucous membranes of the mouth are moist. Neck supple. No JVD or thyromegaly LUNGS: Respirations even and unlabored. Lungs essentially clear to auscultation bilaterally. HEART: Regular rate and rhythm. S1 and S2 heard. ABDOMEN: Soft. Nondistended. Nontender. EXTREMITIES: Normal range of motion. No clubbing or cyanosis. Peripheral pulses intact. No lower extremity edema NEUROLOGIC: Awake and alert. Oriented x 3. ASSESSMENT: Palpitations Dizziness and lightheadedness Chest pain, troponins negative 3, with recent negative stress testing on 05/21/2023 Hypertension Hyperlipidemia Diabetes Morbid obesity PLAN: An acute coronary event has been ruled out Discontinue IV steroids started by ER physician Resume home cardiac medications Patient states he is current taking 20 mg of lisinopril. Patient's blood pr essure is well-controlled at this time. We will continue on this dose. Continue telemetry monitoring to assess for any arrhythmias Check d-dimer Check orthostatic blood pressures Check lipid panel and hemoglobin A1c Further recommendations pending patient's course Nurse practitioner note has been reviewed by physician. Signing provider agrees with the documented findings, assessment, and plan of care. Past Medical History Past Medical History: Asthma, COPD, Diabetes Mellitus, Hyperlipidemia, Hypertension, Osteoarthritis (OA) Additional Past Medical History / Comment(s): Persistent asthma, NIDDM II-arth ritis R knee, COVID + History of Any Multi-Drug Resistant Organisms: None Reported Past Surgical History: Hernia Repair Additional Past Surgical History / Comment(s): Umbilical hernia repair Past Anesthesia/Blood Transfusion Reactions: Motion Sickness Past Psychological History: No Psychological Hx Reported Smoking Status: Former smoker Past Alcohol Use History: None Reported Past Drug Use History: None Reported - Past Family History Mother History Unknown: Yes Family Medical History: Cancer Additional Family Medical History / Comment(s): Mother of ovarian cancer at the age of 78yrs. Father History Unknown: Yes Family Medical History: GI Bleed Additional Family Medical History / Comment(s): Father around age 50 from a bleeding ulcer. Brother(s) Family Medical History: No Reported History Additional Family Medical History / Comment(s): The patient has 2 brothers and one from pneumonia at age 59, 1 is alive with history of bariatric surgery. Sister(s) Family Medical History: No Reported History Additional Family Medical History / Comment(s): Patient has 2 sisters and one has history of gallbladder disease. Daughter(s) Family Medical History: Unable to Obtain Additional Family Medical History / Comment(s): Patient has one daughter with no major medical problems. Son(s) Additional Family Medical History / Comment(s): Patient has 2 sons and one has hypertension. Medications and Allergies Home Medications Medication Instructions Recorded Confirmed Type Montelukast Sodium [Singulair] 10 mg PO DAILY@1400 05/18/06/03/23 History Fluticasone Propionate [Flovent 2 puff INHALATION RT-BID 06/16/20 06/03/23 History Hfa 220 mcg] Albuterol Inhaler [Ventolin Hfa 2 puff INHALATION RT-Q4H PRN 02/05/22 06/03/23 History Inhaler] lisinopriL [Prinivil] 20 mg PO DAILY@1400 09/22/22 06/03/23 History Albuterol Nebulized [Ventolin 2.5 mg INHALATION RT-QID PRN 06/03/23 06/03/23 History Nebulized] metFORMIN HCL 500 mg PO PC-SUPPER 06/03/23 06/03/23 History Allergies Allergy/AdvReac Type Severity Reaction Status Date / Time adhesive Allergy Rash/Hives Verified 06/03/23 08:26 Csaaroo-WAK-LbG Reductase AdvReac MUSCLE PAIN Verified 06/03/23 08:26 Inhibitor [Scbxjjq-Cfi-Vqs Reductase Inhibitor] Physical Exam Vitals: Vital Signs Temp Pulse Resp BP Pulse Ox 06/03/23 10:00 100 19 117/74 96 06/03/23 09:00 103 H 19 138/85 96 06/03/23 08:26 87 06/03/23 08:16 93 06/03/23 07:52 83 18 122/67 98 06/03/23 05:59 81 16 116/73 97 06/03/23 04:28 80 16 125/70 99 06/03/23 03:20 83 06/03/23 03:10 80 06/03/23 02:25 77 119/71 99 06/03/23 02:08 75 14 97/59 98 06/03/23 00:35 97.9 F 94 18 109/68 99 Intake and Output 06/02/23 06/03/23 06/03/23 22:59 06:59 14:59 Other: Weight 148.325 kg Results 06/03/23 00:47 06/03/23 00:47 Cardiac Enzymes 06/03/23 06/03/23 06/03/23 Range/Units 00:47 00:47 03:46 AST 17 (17-59) U/L Troponin I <0.012 <0.012 (0.000-0.034) ng/mL 06/03/23 Range/Units 05:55 AST (17-59) U/L Troponin I <0.012 (0.000-0.034) ng/mL Coagulation 06/03/23 Range/Units 00:47 PT 9.7 (9.0-12.0) sec APTT 23.4 (22.0-30.0) sec CBC 06/03/23 Range/Units 00:47 WBC 7.5 (3.8-10.6) k/uL RBC 4.68 (4.30-5.90) m/uL Hgb 14.7 (13.0-17.5) gm/dL Hct 44.8 (39.0-53.0) % Plt Count 291 (150-450) k/uL Comprehensive Metabolic Panel 06/03/23 Range/Units 00:47 Sodium 140 (137-145) mmol/L Potassium 4.3 (3.5-5.1) mmol/L Chloride 106 (98-107) mmol/L Carbon Dioxide 28 (22-30) mmol/L BUN 21 H (9-20) mg/dL Creatinine 0.75 (0.66-1.25) mg/dL Glucose 135 H (74-99) mg/dL Calcium 8.8 (8.4-10.2) mg/dL AST 17 (17-59) U/L ALT 14 (4-49) U/L Alkaline Phosphatase 56 (38-126) U/L Total Protein 6.2 L (6.3-8.2) g/dL Albumin 3.7 (3.5-5.0) g/dL Current Medications Generic Name Dose Route Start Last Admin Trade Name Freq PRN Reason Stop Dose Admin Albuterol/Ipratropium 3 ml 06/03/23 02:27 06/03/23 08:16 Ipratropium-Albuterol 3 Ml Neb INHALATION 3 ml RT-QID PRN Administration Shortness Of Breath Or Wheezing Dextrose/Water 25 ml 06/03/23 10:03 Dextrose 50% Syringe 50 Ml IVP PER PROTOCOL PRN Hypoglycemia Protocol Dextrose/Water 50 ml 06/03/23 10:03 Dextrose 50% Syringe 50 Ml IVP PER PROTOCOL PRN Hypoglycemia Protocol Fluticasone Propionate 2 puff 06/03/23 20:00 Fluticasone 110 Mcg Inhaler INHALATION RT-BID [facility] Heparin Sodium (Porcine) 5,000 unit 06/03/23 16:00 Heparin Sodium,Porcine 5,000 Unit/Ml 1 Ml Vial SQ Q8HR [facility] Sodium Chloride 1,000 mls @ 75 mls/hr 06/03/23 02:30 06/03/23 02:39 Saline 0.9% IV 75 mls/hr .[id number] [facility] Administration Insulin Aspart 0 unit 06/03/23 12:30 Insulin Aspart (Novolog) 100 Unit/Ml Vial SQ ACHS [facility] Protocol Lisinopril 20 mg 06/03/23 14:00 Lisinopril 20 Mg Tab PO DAILY@1400 [facility] Montelukast Sodium 10 mg 06/03/23 14:00 Montelukast 10 Mg Tab PO DAILY@1400 [facility] Morphine Sulfate 4 mg 06/03/23 02:26 Morphine Sulfate 4 Mg/Ml Syringe IV Q4HR PRN Severe Pain (Scale 7 to 10) Naloxone HCl 0.2 mg 06/03/23 02:26 Naloxone 0.4 Mg/Ml 1 Ml Vial IV Q2M PRN Opioid Reversal Ondansetron HCl 4 mg 06/03/23 02:26 Ondansetron 4 Mg/2 Ml Vial IVP Q8HR PRN Nausea And Vomiting Intake and Output 06/02/23 06/03/23 06/03/23 22:59 06:59 14:59 Other: Weight 148.325 kg 06/03/23 00:47 06/03/23 00:47
[2023-06-03 12:54] LABS: Glucose,Whole Blood 261 mg/dL (70-110)
[2023-06-03] MEDS: INSULIN ASPART (NovoLOG) 100 UNIT/ML VIAL SQ SCH ×3 (13:17→21:29)
[2023-06-03] MEDS ORDERED: lisinopriL 20 MG TAB PO SCH (14:00)
[2023-06-03] MEDS ORDERED: MONTELUKAST 10 MG TAB PO SCH (14:00)
[2023-06-03] MEDS: HEPARIN SODIUM,PORCINE 5,000 UNIT/ML 1 ML VIAL SQ SCH ×2 (15:42→21:28)
[2023-06-03 16:02] LABS: Chol/HDL Ratio 3.84 Ratio; LDL Cholesterol,Calculated 128.8 mg/dL (0.0-131.0); VLDL Calculation 12.42 mg/dL (5.00-40.00)
[2023-06-03 17:45] LABS: Glucose,Whole Blood 193 mg/dL (70-110)
[2023-06-03] MEDS: FLUTICASONE 110 MCG INHALER INHALATION SCH (20:51)
[2023-06-03 21:15] LABS: Glucose,Whole Blood 170 mg/dL (70-110)
[2023-06-03] MEDS ORDERED: AZITHROMYCIN 500 MG in SODIUM CHLORIDE 0.9% 250 ML IVPB STA (22:39)
--- NOTE | 2023-06-03 22:58 | P.HPIM ---
History of Present Illness H&P Date: 06/03/23 Chief Complaint: Chest discomfort Patient is a 63-year-old male with a past medical history of hypertension, hyperlipidemia, COPD/asthma, osteoarthritis and prior history of smoking presents to ER with complaints of dizziness and lightheadedness and heart beating fast. Patient states that he has been having weird sensation in the chest for the past few weeks. Denies any pain or radiation. Associated mild shortness of breath. Patient was seen by cardiology in the office recently. Patient was given a Holter monitor. Denies any fever or chills. No cough or sputum production. EKG showed sinus rhythm with incomplete right bundle branch block. Chest x-ray showed increased airspace disease noted in the lower lungs on lateral imaging. Consider cross-sectional imaging if there is further concern. Findings may be infectious in nature. Cardiomegaly. Laboratory data showed WBC 7.5 hemoglobin 14.7 and platelets 291 Sodium 140 potassium 4.3 chloride 106 bicarb is 28 BUN 21 and creatinine 0.75 blood sugar 135. Troponin x3 negative. proBNP less than 20. Review of Systems Constitutional: Patient denies any fever or chills . No generalized weakness or weight loss. Abdomen: Patient denied nausea vomiting and diarrhea and abdominal pain. Cardiovascular: Patient denies any chest pain or short of breath patient does have palpitations. Chest discomfort. Respiratory: patient denied any cough or sputum production. Mild shortness of breath Neurologic: Patient denied any numbness or tingling headache. Musculoskeletal: Patient denies any complaints of joint swelling or deformity. Skin: Negative Psychiatric: Negative Endocrine: No heat or cold intolerance. No recent weight gain. Genitourinary: No dysuria or hematuria. All other 14 point ROS negative except the above Past Medical History Past Medical History: Asthma, COPD, Diabetes Mellitus, Hyperlipidemia, Hypertension, Osteoarthritis (OA) Additional Past Medical History / Comment(s): Persistent asthma, NIDDM II- arthritis R knee, COVID + History of Any Multi-Drug Resistant Organisms: None Reported Past Surgical History: Hernia Repair Additional Past Surgical History / Comment(s): Umbilical hernia repair Past Anesthesia/Blood Transfusion Reactions: Motion Sickness Past Psychological History: No Psychological Hx Reported Smoking Status: Former smoker Past Alcohol Use History: None Reported Past Drug Use History: None Reported - Past Family History Mother History Unknown: Yes Family Medical History: Cancer Additional Family Medical History / Comment(s): Mother of ovarian cancer at the age of 78yrs. Father History Unknown: Yes Family Medical History: GI Bleed Additional Family Medical History / Comment(s): Father around age 50 from a bleeding ulcer. Brother(s) Family Medical History: No Reported History Additional Family Medical History / Comment(s): The patient has 2 brothers and one from pneumonia at age 59, 1 is alive with history of bariatric surgery. Sister(s) Family Medical History: No Reported History Additional Family Medical History / Comment(s): Patient has 2 sisters and one has history of gallbladder disease. Daughter(s) Family Medical History: Unable to Obtain Additional Family Medical History / Comment(s): Patient has one daughter with no major medical problems. Son(s) Additional Family Medical History / Comment(s): Patient has 2 sons and one has hypertension. Medications and Allergies Home Medications Medication Instructions Recorded Confirmed Type Montelukast Sodium [Singulair] 10 mg PO DAILY@1400 05/18/18 06/03/23 History Fluticasone Propionate [Flovent 2 puff INHALATION RT-BID 06/16/20 06/03/23 History Hfa 220 mcg] Albuterol Inhaler [Ventolin Hfa 2 puff INHALATION RT-Q4H PRN 02/05/22 06/03/23 History Inhaler] lisinopriL [Prinivil] 20 mg PO DAILY@1400 09/22/22 06/03/23 History Albuterol Nebulized [Ventolin 2.5 mg INHALATION RT-QID PRN 06/03/23 06/03/23 History Nebulized] metFORMIN HCL 500 mg PO PC-SUPPER 06/03/23 06/03/23 History Allergies Allergy/AdvReac Type Severity Reaction Status Date / Time adhesive Allergy Rash/Hives Verified 06/03/23 08:26 [id number] Reductase AdvReac MUSCLE PAIN Verified 06/03/23 08:26 Inhibitor [Edytbla-Enf-Adz Reductase Inhibitor] Physical Exam Vitals: Vital Signs Temp Pulse Resp BP Pulse Ox 06/03/23 09:00 103 H 19 138/85 96 06/03/23 08:26 87 06/03/23 08:16 93 06/03/23 07:52 83 18 122/67 98 06/03/23 05:59 81 16 116/73 97 10/09/23 04:28 80 16 125/70 99 06/03/23 03:20 83 06/03/23 03:10 80 06/03/23 02:25 77 119/71 99 06/03/23 02:08 75 14 97/59 98 06/03/23 00:35 97.9 F 94 18 109/68 99 Intake and Output 06/02/23 06/03/23 06/03/23 22:59 06:59 14:59 Other: Weight 148.325 kg PHYSICAL EXAMINATION: Patient is lying in the bed comfortably, no acute distress, awake alert and oriented.. Morbidly obese. HEENT: Normocephalic. Neck is supple. Pupils reactive. Nostrils clear. Oral cavity is moist. Neck reveals no JVD, carotid bruits, or thyromegaly. CHEST EXAMINATION: Trachea is central. Symmetrical expansion. Bibasilar diminished sounds. No wheezing. No rhonchi.. CARDIAC: Normal S1, S2 with no gallops. No murmurs ABDOMEN: Soft. Bowel sounds normal. No organomegaly. No abdominal bruits. Extremities: reveal no edema. No clubbing or cyanosis Neurologically awake, alert, oriented x3 with well-coordinated movements. No focal deficits noted Skin: No rash or skin lesions. Psychiatric: Cooperative. Nonsuicidal Musculoskeletal: No joint swelling or deformity. Normal range of motion. Results CBC & Chem 7: 06/03/23 00:47 06/03/23 00:47 Labs: Abnormal Lab Results - Last 24 Hours (Table) 06/03/23 Range/Units 00:47 BUN 21 H (9-20) mg/dL Glucose 135 H (74-99) mg/dL Total Protein 6.2 L (6.3-8.2) g/dL Thrombosis Risk Factor Assmnt - DVT/VTE Prophylaxis DVT/VTE Prophylaxis: Pharmacologic Prophylaxis ordered Assessment and Plan Assessment: Chest discomfort and palpitations. Ruled out ACS. Dizziness and lightheadedness Possible lower lobe pneumonia/airspace disease involving the lower lungs Hypertension Hyperglycemia with uncontrolled diabetes type 2 A1c 6.4 Hyperlipidemia COPD/asthma not in exacerbation Prior history of smoking Osteoarthritis Morbid obesity with BMI 48.3 DVT prophylaxis with heparin subcu Plan: Patient will be continued on telemetry monitoring. Serial EKG and troponin x3 negative. D-dimer level was ordered. Cardiology is on board. Continue with home blood pressure medications and insulin sliding scale for better blood sugar control. Patient will be given ceftriaxone and azithromycin x1, ordered procalcitonin level. Continue with DuoNebs and follow-up closely. Time with Patient: Greater than 30
[2023-06-04] MEDS: SODIUM CHLORIDE 0.9% 1,000 ML IV SCH (05:09)
[2023-06-04 05:45] LABS: Glucose,Whole Blood 122 mg/dL (70-110)
[2023-06-04] MEDS: INSULIN ASPART (NovoLOG) 100 UNIT/ML VIAL SQ SCH ×2 (05:48→11:49)
[2023-06-04 08:26] VITALS: BP 145/88; PULSE 86; RESP 20; TEMP 98
[2023-06-04] MEDS: HEPARIN SODIUM,PORCINE 5,000 UNIT/ML 1 ML VIAL SQ SCH (08:33)
[2023-06-04 08:57] LABS: HCT 41.3 % (39.6-50.0); HGB 13.6 d/dL (13.0-17.0); MCH 30.8 pg (27.0-32.0); MCHC 32.9 d/dL (32.0-37.0); MCV 93.7 FL (80.0-97.0); Mean Platelet Volume 9.1 FL (9.5-12.2); NRBC Per 100 WBC 0 X 10*3/uL (0.00-0.01); Platelet Count 304 X 10*3/uL (140-440); RBC 4.41 X 10*6/uL (4.40-5.60); RDW 13.9 % (11.5-14.5); WBC 16.53 X 10*3/uL (4.50-10.00)
[2023-06-04 08:59] LABS: ALT 11 U/L (10-49); AST 9 U/L (14-35); Albumin 3.6 d/dL (3.8-4.9); Alkaline Phosphatase 56 U/L (41-126); Blood Urea Nitrogen 17.5 mg/dL (9.0-27.0); Carbon Dioxide 26.2 mmol/L (21.6-31.8); Chloride 106 mmol/L (96-109); Glucose 126 mg/dL (70-110); Magnesium 2.1 mg/dL (1.5-2.4); Phosphorus 3.5 mg/dL (2.4-5.1); Potassium 4.5 mmol/L (3.5-5.5); Sodium 140 mmol/L (135-145); Total Bilirubin <0.2 mg/dL (0.3-1.2); Total Protein 5.6 d/dL (6.2-8.2)
[2023-06-04] MEDS ORDERED: lisinopriL 20 MG TAB PO SCH (09:00)
[2023-06-04 09:56] LABS: Basophils # (A) 0.03 X 10*3/uL (0.00-0.10); Basophils % (A) 0.2 %; Eosinophils # (A) 0.01 X 10*3/uL (0.04-0.35); Eosinophils % (A) 0.1 %; Lymphocytes # (A) 2.21 X 10*3/uL (0.90-5.00); Lymphocytes % (A) 13.4 %; Monocytes # (A) 1.68 X 10*3/uL (0.20-1.00); Monocytes % (A) 10.2 %; Neutrophils # (A) 12.53 X 10*3/uL (1.80-7.70); Neutrophils % (A) 75.7 %; RBC Morphology Normal (Normal)
[2023-06-04] MEDS: IPRATROPIUM-ALBUTEROL 3 ML NEB INHALATION PRN (10:01)
[2023-06-04] MEDS: FLUTICASONE 110 MCG INHALER INHALATION SCH (10:01)
--- NOTE | 2023-06-04 10:34 | P.PN ---
Subjective HISTORY OF PRESENT ILLNESS: This is a 63-year-old male with a past medical history significant for hypertension, hyperlipidemia, diabetes, heart palpitations, and morbid obesity. Patient follows in the office with Dr. Del Toro. We have been asked to see the patient in consultation for chest pain. Patient examined at the bedside in the emergency room. Patient presented to the hospital with a chief complaint of dizziness and lightheadedness. He also reports having some palpitations. He also reports that chest pain which she describes as a "weird sensation" but is unable to further characterize this. The patient was seen in the office by Dr. Del Toro nurse practitioner on 05/28/2023. Patient's lisinopril was increased to 40 mg a day. The patient was also given a 24-hour Holter monitor which he wore but results are not back yet. * EKG reveals sinus mechanism with incomplete right bundle ranch block. No signs of acute ischemia. * Chest xray cardiomegaly * Current home cardiac medications include lisinopril 20 mg daily * Most recent echocardiogram obtained in October 2022 revealing ejection fraction 55-60% * Patient underwent dobutamine stress test on 05/21/2023 with no evidence of acute ischemia. 06/04/2023 Patient examined this morning at the bedside. Patient denies chest pain or pre ssure. He currently denies shortness of breath. Blood pressure slightly elevated with a systolic in the 140s. PHYSICAL EXAM: VITAL SIGNS: Reviewed. GENERAL: Well-developed in no acute distress. HEENT: Head is normocephalic. Pupils are equal, round. Sclerae anicteric. Mucous membranes of the mouth are moist. Neck supple. No JVD or thyromegaly LUNGS: Respirations even and unlabored. Lungs essentially clear to auscultation bilaterally. HEART: Regular rate and rhythm. S1 and S2 heard. ABDOMEN: Soft. Nondistended. Nontender. EXTREMITIES: Normal range of motion. No clubbing or cyanosis. Peripheral pulses intact. No lower extremity edema NEUROLOGIC: Awake and alert. Oriented x 3. ASSESSMENT: Palpitations Dizziness and lightheadedness Chest pain, troponins negative 3, with recent negative stress testing on 05/21/2023 Hypertension Hyperlipidemia Diabetes Morbid obesity PLAN: Continue current cardiac medications Increase lisinopril to 20 mg twice a day Patient is stable for discharge home today with close outpatient follow-up with Dr. Del Toro We will sign off. Please reconsult if needed. Nurse practitioner note has been reviewed by physician. Signing provider agrees with the documented findings, assessment, and plan of care. Objective - Vital Signs Vital signs: Vital Signs Temp 98 F 06/04/23 07:00 Pulse 86 06/04/23 10:15 Resp 20 06/04/23 07:00 BP 145/88 06/04/23 07:00 Pulse Ox 97 06/04/23 10:02 FiO2 Intake & Output 06/03/23 06/04/23 06/04/23 18:59 06:59 18:59 Intake Total 120 Balance 120 Weight 148.325 kg Intake: Oral 120 Other: # Voids 3 - Labs CBC & Chem 7: 06/04/23 05:26 06/04/23 05:26 Labs: Abnormal Lab Results - Last 24 Hours (Table) 06/03/23 06/03/23 06/03/23 Range/Units 10:10 10:10 12:53 WBC (4.50-10.00) X 10*3/uL MPV (9.5-12.2) FL Neutrophils # (1.80-7.70) X 10*3/uL Monocytes # (0.20-1.00) X 10*3/uL Eosinophils # (0.04-0.35) X 10*3/uL D-Dimer 0.62 H (<0.60) mg/L FEU BUN/Creatinine Ratio (12.00-20.00) Ratio Glucose (70-110) mg/dL POC Glucose (mg/dL) 261 H (70-110) mg/dL Hemoglobin A1c 6.4 H (<=6.0) % Total Bilirubin (0.3-1.2) mg/dL AST (14-35) U/L Total Protein (6.2-8.2) d/dL Albumin (3.8-4.9) d/dL 06/03/23 06/03/23 06/04/23 Range/Units 17:43 21:13 05:26 WBC 16.53 H (4.50-10.00) X 10*3/uL MPV 9.1 L (9.5-12.2) FL Neutrophils # 12.53 H (1.80-7.70) X 10*3/uL Monocytes # 1.68 H (0.20-1.00) X 10*3/uL Eosinophils # 0.01 L (0.04-0.35) X 10*3/uL D-Dimer (<0.60) mg/L FEU BUN/Creatinine Ratio (12.00-20.00) Ratio Glucose (70-110) mg/dL POC Glucose (mg/dL) 193 H 170 H (70-110) mg/dL Hemoglobin A1c (<=6.0) % Total Bilirubin (0.3-1.2) mg/dL AST (14-35) U/L Total Protein (6.2-8.2) d/dL Albumin (3.8-4.9) d/dL 06/04/23 06/04/23 Range/Units 05:26 05:44 WBC (4.50-10.00) X 10*3/uL MPV (9.5-12.2) FL Neutrophils # (1.80-7.70) X 10*3/uL Monocytes # (0.20-1.00) X 10*3/uL Eosinophils # (0.04-0.35) X 10*3/uL D-Dimer (<0.60) mg/L FEU BUN/Creatinine Ratio 25.00 H (12.00-20.00) Ratio Glucose 126 H (70-110) mg/dL POC Glucose (mg/dL) 122 H (70-110) mg/dL Hemoglobin A1c (<=6.0) % Total Bilirubin <0.2 L (0.3-1.2) mg/dL AST 9 L (14-35) U/L Total Protein 5.6 L (6.2-8.2) d/dL Albumin 3.6 L (3.8-4.9) d/dL
[2023-06-04 11:29] LABS: Glucose,Whole Blood 127 mg/dL (70-110)
--- NOTE | 2023-06-05 21:23 | P.DS ---
Providers Date of admission: 06/03/23 02:26 Expected date of discharge: 06/04/23 Attending physician: Duong Bales Primary care physician: Marco Zamora [facility] Course: Discharge diagnosis Chest discomfort and palpitations. Ruled out ACS. Dizziness and lightheadedness airspace disease involving the lower lungs unlikely pneumonia. procal is not elevated. Hypertension Hyperglycemia with uncontrolled diabetes type 2 A1c 6.4 Hyperlipidemia COPD/asthma not in exacerbation Prior history of smoking Osteoarthritis Morbid obesity with BMI 48.3 DVT prophylaxis with heparin subcu Hospital course Patient is a 63-year-old male with a past medical history of hypertension, hyperlipidemia, COPD/asthma, osteoarthritis and prior history of smoking presents to ER with complaints of dizziness and lightheadedness and heart beating fast. Patient states that he has been having weird sensation in the chest for the past few weeks. Denies any pain or radiation. Associated mild shortness of breath. Patient was seen by cardiology in the office recently. Patient was given a Holter monitor. Denies any fever or chills. No cough or sputum production. EKG showed sinus rhythm with incomplete right bundle branch block. Chest x-ray showed increased airspace disease noted in the lower lungs on lateral imaging. Consider cross-sectional imaging if there is further concern. Findings may be infectious in nature. Cardiomegaly. Laboratory data showed WBC 7.5 hemoglobin 14.7 and platelets 291 Sodium 140 potassium 4.3 chloride 106 bicarb is 28 BUN 21 and creatinine 0.75 blood sugar 135. Troponin x3 negative. proBNP less than 20. 06/04/2023 Patient is currently resting in the bed. Awake alert and oriented 3. No complaints of chest pain or shortness of breath. Patient does have history of COPD and on home oxygen. No wheezing noted on examination. Heart rate is better controlled as well. Pro-calcitonin level is not elevated at 0.03. Patient was encouraged to take breathing treatments at home. No complaints of dizziness or lightheadedness. lisinopril increased to 20mg BID. Cardiology cleared the patient to be discharged home and follow-up with Dr. Del Toro as an outpatient. Patient is being discharged home today. Discharge medication reconciliation was done. PHYSICAL EXAMINATION: Patient is lying in the bed comfortably, no acute distress, awake alert and oriented.. Morbidly obese. HEENT: Normocephalic. Neck is supple. Pupils reactive. Nostrils clear. Oral cavity is moist. Neck reveals no JVD, carotid bruits, or thyromegaly. CHEST EXAMINATION: Trachea is central. Symmetrical expansion. No wheezing. No rhonchi.. non laboured. CARDIAC: Normal S1, S2 with no gallops. No murmurs ABDOMEN: Soft. Bowel sounds normal. No organomegaly. No abdominal bruits. Extremities: reveal no edema. No clubbing or cyanosis Neurologically awake, alert, oriented x3 with well-coordinated movements. No focal deficits noted Skin: No rash or skin lesions. Psychiatric: Cooperative. Nonsuicidal Musculoskeletal: No joint swelling or deformity. Normal range of motion. Vital signs: Vital Signs Temp 98 F 06/04/23 07:00 Pulse 86 06/04/23 10:15 Resp 20 06/04/23 07:00 BP 145/88 06/04/23 07:00 Pulse Ox 97 06/04/23 10:02 FiO2 Intake & Output 06/03/23 06/04/23 06/04/23 18:59 06:59 18:59 Intake Total 120 Balance 120 Weight 148.325 kg Intake: Oral 120 Other: # Voids 3 Patient Condition at Discharge: Fair Plan - Discharge Summary New Discharge Prescriptions: New lisinopriL [Zestril] 20 mg PO BID #60 tab Continue Montelukast Sodium [Singulair] 10 mg PO DAILY@1400 Fluticasone Propionate [Flovent Hfa 220 mcg] 2 puff INHALATION RT-BID Albuterol Inhaler [Ventolin Hfa Inhaler] 2 puff INHALATION RT-Q4H PRN PRN Reason: Shortness Of Breath Albuterol Nebulized [Ventolin Nebulized] 2.5 mg INHALATION RT-QID PRN PRN Reason: Shortness Of Breath metFORMIN HCL 500 mg PO PC-SUPPER Discontinued lisinopriL [Prinivil] 20 mg PO DAILY@1400 Discharge Medication List Montelukast Sodium [Singulair] 10 mg PO DAILY@1400 05/18/18 [History] Fluticasone Propionate [Flovent Hfa 220 mcg] 2 puff INHALATION RT-BID 06/16/20 [History] Albuterol Inhaler [Ventolin Hfa Inhaler] 2 puff INHALATION RT-Q4H PRN 02/05/22 [History] Albuterol Nebulized [Ventolin Nebulized] 2.5 mg INHALATION RT-QID PRN 06/03/23 [History] metFORMIN HCL 500 mg PO PC-SUPPER 06/03/23 [History] lisinopriL [Zestril] 20 mg PO BID #60 tab 06/04/23 [Rx] Follow up Appointment(s)/Referral(s): Rio Del Toro DO [STAFF PHYSICIAN] - 1 Week Marco Zamora [Primary Care Provider] - 1-2 days Glynn Restrepo MD [STAFF PHYSICIAN] - 1 Week Discharge Disposition: HOME SELF-CARE
== END 2023-06-04 12:16 | disposition home or self-care (01) ==
LOC: EC 00:30 → 6NMEDSUR 02:26
PROVIDERS: ADMIT Hospitalist; ATTEND Hospitalist
DX: R07.89 Other chest pain (principal); R00.2 Palpitations; R42 Dizziness and giddiness; E11.65 Type 2 diabetes mellitus with hyperglycemia; I11.9 Hypertensive heart disease without heart failure; J45.30 Mild persistent asthma, uncomplicated; J44.9 Chronic obstructive pulmonary disease, unspecified; I45.10 Unspecified right bundle-branch block; E78.5 Hyperlipidemia, unspecified; M17.11 Unilateral primary osteoarthritis, right knee; Z68.42 Body mass index [BMI] 45.0-49.9, adult; E66.01 Morbid (severe) obesity due to excess calories; Z99.81 Dependence on supplemental oxygen; Z79.51 Long term (current) use of inhaled steroids; Z79.84 Long term (current) use of oral hypoglycemic drugs; Z79.899 Other long term (current) drug therapy; Z88.8 Allergy status to other drugs, medicaments and biological substances; Z91.048 Other nonmedicinal substance allergy status; Z86.16 Personal history of COVID-19; Z87.891 Personal history of nicotine dependence; Z98.890 Other specified postprocedural states; Z80.41 Family history of malignant neoplasm of ovary; Z83.79 Family history of other diseases of the digestive system; Z82.49 Family history of ischemic heart disease and other diseases of the circulatory system
CPT/HCPCS: 96361 ×2; 96365; 96366; 96372 ×2; 96368; 96376; 96375; 99285; 36415; 94640 ×3; 94760; 93005; 85379; 83880; 80061; 80053 ×2; 83735 ×2; 84100; 84484; 85025 ×2; 85610; 85730; 83036; 84145; 71046; G0378 ×2; J1644 ×2; J2930; J0456; J0696

== ENCOUNTER 2023-08-12 07:29 | Emergency (ER) | payer BC ==
[2023-08-12 07:39] VITALS: TEMP 98.7
[2023-08-12] MEDS ORDERED: ALBUTEROL NEBULIZED 2.5 MG/3 ML INHALATION STA (07:39)
[2023-08-12] MEDS ORDERED: IPRATROPIUM 0.5 MG/2.5 ML NEBU INHALATION STA (07:39)
[2023-08-12] MEDS ORDERED: methylPREDNISolone SOD SUCCI 125 MG/2 ML VIAL IV STA (07:39)
--- NOTE | 2023-08-12 07:43 | ED ---
General Adult HPI - General Chief complaint: Shortness of Breath Stated complaint: sob chest pains Time Seen by Provider: 08/12/23 07:40 Source: patient, RN notes reviewed, old records reviewed Mode of arrival: ambulatory Limitations: no limitations - History of Present Illness Initial comments: This is a 63-year-old male with a past medical history significant for COPD and asthma. Patient states she's been on oxygen 3 L for urinary. Patient states he has diabetes and hypertension as well. Patient states last night he started having some difficulty breathing when he got up this morning he felt considerably tighter and much more short of breath. Patient denies any chest pain. Patient denies any abdominal pain. Patient denies lightheadedness or dizziness. Patient is a near syncopal episode. Patient denies any back pain. Patient denies any fever chills or cough. Patient denies any sore throat. Patient denies any congestion. - Related Data Home Medications Medication Instructions Recorded Confirmed Montelukast Sodium [Singulair] 10 mg PO DAILY@1400 05/18/18 06/03/23 Fluticasone Propionate [Flovent 2 puff INHALATION RT-BID 06/16/20 06/03/23 Hfa 220 mcg] Albuterol Inhaler [Ventolin Hfa 2 puff INHALATION RT-Q4H PRN 02/05/22 06/03/23 Inhaler] Albuterol Nebulized [Ventolin 2.5 mg INHALATION RT-QID PRN 06/03/23 06/03/23 Nebulized] metFORMIN HCL 500 mg PO PC-SUPPER 06/03/23 06/03/23 Previous Rx's Medication Instructions Recorded lisinopriL [Zestril] 20 mg PO BID #60 tab 06/04/23 predniSONE [Deltasone] 40 mg PO DAILY #8 tab 08/12/23 Allergies Allergy/AdvReac Type Severity Reaction Status Date / Time adhesive Allergy Rash/Hives Verified 08/12/23 07:33 Aftwneb-FIA-EpL Reductase AdvReac MUSCLE PAIN Verified 08/12/23 07:33 Inhibitor [Qdxyzkb-Cuh-Paf Reductase Inhibitor] Review of Systems ROS Statement: Those systems with pertinent positive or pertinent negative responses have been documented in the HPI. ROS Other: All systems not noted in ROS Statement are negative. Past Medical History Past Medical History: Asthma, COPD, Diabetes Mellitus, Hyperlipidemia, Hyperte nsion, Osteoarthritis (OA) Additional Past Medical History / Comment(s): Persistent asthma, NIDDM II- arthritis R knee, COVID + History of Any Multi-Drug Resistant Organisms: None Reported Past Surgical History: Hernia Repair Additional Past Surgical History / Comment(s): Umbilical hernia repair Past Anesthesia/Blood Transfusion Reactions: Motion Sickness Past Psychological History: No Psychological Hx Reported Smoking Status: Former smoker Past Alcohol Use History: None Reported Past Drug Use History: None Reported - Past Family History Mother History Unknown: Yes Family Medical History: Cancer Additional Family Medical History / Comment(s): Mother of ovarian cancer at the age of 78yrs. Father History Unknown: Yes Family Medical History: GI Bleed Additional Family Medical History / Comment(s): Father around age 50 from a bleeding ulcer. Brother(s) Family Medical History: No Reported History Additional Family Medical History / Comment(s): The patient has 2 brothers and one from pneumonia at age 59, 1 is alive with history of bariatric surgery. Sister(s) Family Medical History: No Reported History Additional Family Medical History / Comment(s): Patient has 2 sisters and one has history of gallbladder disease. Daughter(s) Family Medical History: Unable to Obtain Additional Family Medical History / Comment(s): Patient has one daughter with no major medical problems. Son(s) Additional Family Medical History / Comment(s): Patient has 2 sons and one has hypertension. General Exam - General Exam Comments Initial Comments: GENERAL: Patient is well-developed and well-nourished. Patient is nontoxic and well- hydrated and is in mild distress. ENT: Neck is soft and supple. No significant lymphadenopathy is noted. Oropharynx is clear. Moist mucous membranes. Neck has full range of motion without eliciting any pain. EYES: The sclera were anicteric and conjunctiva were pink and moist. Extraocular movements were intact and pupils were equal round and reactive to light. Eyelids were unremarkable. PULMONARY: Patient has diffuse expiratory wheezing CARDIOVASCULAR: There is a regular rate and rhythm without any murmurs gallops or rubs. ABDOMEN: Soft and nontender with normal bowel sounds. SKIN: Skin is clear with no lesions or rashes and otherwise unremarkable. NEUROLOGIC: Patient is alert and oriented x3. Cranial nerves II through XII are grossly intact. Motor and sensory are also intact. Normal speech, volume and content. Symmetrical smile. MUSCULOSKELETAL: Normal extremities with adequate strength and full range of motion. No lower extremity swelling or edema. No calf tenderness. LYMPHATICS: No significant lymphadenopathy is noted PSYCHIATRIC: Normal psychiatric evaluation. Limitations: no limitations Course Vital Signs 08/12/23 08/12/23 08/12/23 07:29 07:45 08:46 Temperature 98.7 F Pulse Rate 82 76 Respiratory 18 20 Rate Blood Pressure 135/79 O2 Sat by Pulse 96 Oximetry 08/12/23 09:04 Temperature Pulse Rate 80 Respiratory Rate Blood Pressure O2 Sat by Pulse Oximetry Medical Decision Making - Medical Decision Making EKG is interpreted by myself. EKG shows a sinus rhythm at 74 bpm CO interval 288 114 Q-T intervals 36 QTC is 397. Patient's EKG shows no ST segment elevation or depression. Was pt. sent in by a medical professional or institution ([facility], [employer], urgent care, hospital, or usp...) When possible be specific @ -No Did you speak to anyone other than the patient for history (EMS, parent, family, police, friend...)? What history was obtained from this source @ -No Did you review nursing and triage notes (agree or disagree)? Why? @ -I reviewed and agree with nursing and triage notes Were old charts reviewed (outside hosp., previous admission, EMS record, old EKG, old radiological studies, urgent care reports/EKG's, usp records)? Report findings @ -I reviewed previous charts in previous radiological studies as well as labwork on this patient Differential Diagnosis (chest pain, altered mental status, abdominal pain women, abdominal pain men, vaginal bleeding, weakness, fever, dyspnea, syncope, headache, dizziness, GI bleed, back pain, seizure, CVA, palpatations, mental health, musculoskeletal)? @ -Differential Dyspnea: Coronary syndrome, arrhythmia, tamponade, asthma, COPD, pulmonary embolism, pneumonia, pneumothorax, pulmonary effusion, anaphylaxis, diabetic ketoacidosis, flailed chest, pulmonary contusion, diaphragmatic rupture, anemia, neuromuscular, this is not meant to be an all-inclusive list. EKG interpreted by me (3pts min.). @ -As above X-rays interpreted by me (1pt min.). @ -Chest x-ray shows no acute abnormality CT interpreted by me (1pt min.). @ -None done U/S interpreted by me (1pt. min.). @ -None done What testing was considered but not performed or refused? (CT, X-rays, U/S, labs)? Why? @ -None What meds were considered but not given or refused? Why? @ -None Did you discuss the management of the patient with other professionals (professionals i.e. Dr., PA, [employer], lab, RT, psych nurse, rn social work, dialysis chief equipment technician, teacher, code enforcement officer, case management coordinator)? Give summary @ -No Was smoking cessation discussed for >3mins.? @ -No Was critical care preformed (if so, how long)? @ -No Were there social determinants of health that impacted care today? How? (Homelessness, low income, unemployed, alcoholism, drug addiction, transportation, low edu. Level, literacy, decrease access to med. care, longterm, rehab)? @ -No Was there de-escalation of care discussed even if they declined (Discuss DNR or withdrawal of care, Hospice)? DNR status @ -No What co-morbidities impacted this encounter? (DM, HTN, Smoking, COPD, CAD, Cancer, CVA, ARF, Chemo, Hep., AIDS, mental health diagnosis, sleep apnea, morbid obesity)? @ -None Was patient admitted / discharged? Hospital course, mention meds given and route, prescriptions, significant lab abnormalities, going to OR and other pertinent info. @ -Patient received 2 breathing treatments in the emergency department as well as steroids. Patient was up and ambulatory. I went in and spoke with the patient gave him his results and he stated he felt much better and felt the so he can go home. I listened to his lungs he had no wheezing at this time he is oxygenating 96-97% on 3 L which is his baseline oxygen. Undiagnosed new problem with uncertain prognosis? @ -No Drug Therapy requiring intensive monitoring for toxicity (Heparin, Nitro, Insulin, Cardizem)? @ -No Were any procedures done? @ -No Diagnosis/symptom? @ -COPD exacerbation Acute, or Chronic, or Acute on Chronic? @ -Acute Uncomplicated (without systemic symptoms) or Complicated (systemic symptoms)? @ -Complicated Side effects of treatment? @ -No Exacerbation, Progression, or Severe Exacerbation? @ -No Poses a threat to life or bodily function? How? (Chest pain, USA, VA, pneumonia, PE, COPD, DKA, ARF, appy, cholecystitis, CVA, Diverticulitis, Homicidal, Suicidal, threat to staff... and all critical care pts) @ -No - Lab Data Result diagrams: 08/12/23 07:51 08/12/23 07:51 Lab Results 08/12/23 08/12/23 08/12/23 Range/Units 07:51 07:51 07:51 WBC 6.9 (3.8-10.6) k/uL RBC 4.67 (4.30-5.90) m/uL Hgb 15.0 (13.0-17.5) gm/dL Hct 44.8 (39.0-53.0) % MCV 95.9 (80.0-100.0) fL MCH 32.0 (25.0-35.0) pg MCHC 33.4 (31.0-37.0) g/dL RDW 13.3 (11.5-15.5) % Plt Count 244 (150-450) k/uL MPV 6.7 Neutrophils % 56 % Lymphocytes % 29 % Monocytes % 7 % Eosinophils % 6 % Basophils % 0 % Neutrophils # 3.8 (1.3-7.7) k/uL Lymphocytes # 2.0 (1.0-4.8) k/uL Monocytes # 0.5 (0-1.0) k/uL Eosinophils # 0.4 (0-0.7) k/uL Basophils # 0.0 (0-0.2) k/uL PT 9.5 L (10.0-12.5) sec INR 0.8 (<1.2) APTT 24.0 (22.0-30.0) sec Sodium 138 (137-145) mmol/L Potassium 4.6 (3.5-5.1) mmol/L Chloride 105 (98-107) mmol/L Carbon Dioxide 25 (22-30) mmol/L Anion Gap 8 mmol/L BUN 18 (9-20) mg/dL Creatinine 0.66 (0.66-1.25) mg/dL Est GFR (CKD-EPI)AfAm >90 (>60 ml/min/1.73 sqM) Est GFR (CKD-EPI)NonAf >90 (>60 ml/min/1.73 sqM) Glucose 155 H (74-99) mg/dL POC Glucose (mg/dL) (70-110) mg/dL POC Glu Auto Roller ID Plasma Lactic Acid Jorge (0.7-2.0) mmol/L Calcium 8.9 (8.4-10.2) mg/dL Magnesium 2.0 (1.6-2.3) mg/dL Total Bilirubin 0.6 (0.2-1.3) mg/dL AST 24 (17-59) U/L ALT 13 (4-49) U/L Alkaline Phosphatase 51 (38-126) U/L Troponin I (0.000-0.034) ng/mL NT-Pro-B Natriuret Pep 36 pg/mL Total Protein 6.4 (6.3-8.2) g/dL Albumin 3.7 (3.5-5.0) g/dL 08/12/23 08/12/23 08/12/23 Range/Units 07:51 07:51 07:54 WBC (3.8-10.6) k/uL RBC (4.30-5.90) m/uL Hgb (13.0-17.5) gm/dL Hct (39.0-53.0) % MCV (80.0-100.0) fL MCH (25.0-35.0) pg MCHC (31.0-37.0) g/dL RDW (11.5-15.5) % Plt Count (150-450) k/uL MPV Neutrophils % % Lymphocytes % % Monocytes % % Eosinophils % % Basophils % % Neutrophils # (1.3-7.7) k/uL Lymphocytes # (1.0-4.8) k/uL Monocytes # (0-1.0) k/uL Eosinophils # (0-0.7) k/uL Basophils # (0-0.2) k/uL PT (10.0-12.5) sec INR (<1.2) APTT (22.0-30.0) sec Sodium (137-145) mmol/L Potassium (3.5-5.1) mmol/L Chloride (98-107) mmol/L Carbon Dioxide (22-30) mmol/L Anion Gap mmol/L BUN (9-20) mg/dL Creatinine (0.66-1.25) mg/dL Est GFR (CKD-EPI)AfAm (>60 ml/min/1.73 sqM) Est GFR (CKD-EPI)NonAf (>60 ml/min/1.73 sqM) Glucose (74-99) mg/dL POC Glucose (mg/dL) 154 H (70-110) mg/dL POC Glu Auto Roller ID Andra Garnett Plasma Lactic Acid Jorge 1.3 (0.7-2.0) mmol/L Calcium (8.4-10.2) mg/dL Magnesium (1.6-2.3) mg/dL Total Bilirubin (0.2-1.3) mg/dL AST (17-59) U/L ALT (4-49) U/L Alkaline Phosphatase (38-126) U/L Troponin I <0.012 (0.000-0.034) ng/mL NT-Pro-B Natriuret Pep pg/mL Total Protein (6.3-8.2) g/dL Albumin (3.5-5.0) g/dL Disposition Clinical Impression: COPD exacerbation Disposition: HOME SELF-CARE Condition: Good Instructions (If sedation given, give patient instructions): COPD (Chronic Obstructive Pulmonary Disease) (ED) Prescriptions: predniSONE [Deltasone] 40 mg PO DAILY #8 tab Is patient prescribed a controlled substance at d/c from ED?: No Referrals: Marco Zamora [Primary Care Provider] - 1-2 days Time of Disposition: 09:47
[2023-08-12 07:56] LABS: Glucose,Whole Blood 154 mg/dL (70-110)
[2023-08-12 08:22] LABS: Basophils % (A) 0 %; Eosinophils # (A) 0.4 k/uL (0-0.7); Eosinophils % (A) 6 %; HCT 44.8 % (39.0-53.0); Lymphocytes % (A) 29 %; MCHC 33.4 g/dL (31.0-37.0); MCV 95.9 fL (80.0-100.0); Mean Platelet Volume 6.7; Monocytes # (A) 0.5 k/uL (0-1.0); Monocytes % (A) 7 %; Neutrophils # (A) 3.8 k/uL (1.3-7.7); Neutrophils % (A) 56 %; Platelet Count 244 k/uL (150-450); RBC 4.67 m/uL (4.30-5.90); RDW 13.3 % (11.5-15.5); WBC 6.9 k/uL (3.8-10.6)
--- NOTE | 2023-08-12 08:33 | XR ---
EXAMINATION TYPE: XR chest 2V DATE OF EXAM: 08/12/2023 COMPARISON: 06/03/2023 INDICATION: Difficulty breathing TECHNIQUE: Frontal and lateral views of the chest are obtained. FINDINGS: The heart size is normal. The pulmonary vasculature is normal. The lungs are clear. IMPRESSION: 1. No acute pulmonary process.
[2023-08-12 08:35] LABS: ALT 13 U/L (4-49); AST 24 U/L (17-59); African American GFR (CKD) >90 (>60 ml/min/1.73 sqM); Albumin 3.7 g/dL (3.5-5.0); Alkaline Phosphatase 51 U/L (38-126); Anion Gap 8 mmol/L; Blood Urea Nitrogen 18 mg/dL (9-20); Calcium 8.9 mg/dL (8.4-10.2); Carbon Dioxide 25 mmol/L (22-30); Chloride 105 mmol/L (98-107); Glucose 155 mg/dL (74-99); Non-African American GFR(CKD) >90 (>60 ml/min/1.73 sqM); Sodium 138 mmol/L (137-145); Total Bilirubin 0.6 mg/dL (0.2-1.3); Total Protein 6.4 g/dL (6.3-8.2)
[2023-08-12 08:36] LABS: INR 0.8 (<1.2); Prothrombin Time 9.5 sec (10.0-12.5)
[2023-08-12 08:40] LABS: Potassium 4.6 mmol/L (3.5-5.1)
[2023-08-12 08:42] LABS: NT-Pro-B-Type Natriuretic Pept 36 pg/mL
[2023-08-12 10:15] VITALS: BP 151/89; PULSE 78; RESP 18
== END 2023-08-12 09:54 | disposition home or self-care (01) ==
LOC: EC 07:29
DX: J44.89 Other specified chronic obstructive pulmonary disease (principal); E11.9 Type 2 diabetes mellitus without complications; I10 Essential (primary) hypertension; Z87.891 Personal history of nicotine dependence; Z79.84 Long term (current) use of oral hypoglycemic drugs; Z79.51 Long term (current) use of inhaled steroids; Z86.16 Personal history of COVID-19; Z88.8 Allergy status to other drugs, medicaments and biological substances; Z91.048 Other nonmedicinal substance allergy status
CPT/HCPCS: 36415; 94640; 93005; 83880; 80053; 83605; 83735; 84484; 85025; 85610; 85730; 71046; 99285; 96374; J2930

== ENCOUNTER 2023-10-06 06:10 | Emergency (ER) | payer BC ==
[2023-10-06] MEDS: methylPREDNISolone SOD SUCCI 125 MG/2 ML VIAL IV STA (06:44)
[2023-10-06 06:50] LABS: Basophils % (A) 1 %; Eosinophils # (A) 0.4 k/uL (0-0.7); Eosinophils % (A) 5 %; HCT 45.1 % (39.0-53.0); HGB 14.8 gm/dL (13.0-17.5); Lymphocytes # (A) 1.5 k/uL (1.0-4.8); Lymphocytes % (A) 21 %; MCH 31.2 pg (25.0-35.0); MCHC 32.9 g/dL (31.0-37.0); MCV 94.9 fL (80.0-100.0); Mean Platelet Volume 6.6; Monocytes # (A) 0.7 k/uL (0-1.0); Monocytes % (A) 9 %; Neutrophils # (A) 4.4 k/uL (1.3-7.7); Neutrophils % (A) 61 %; Platelet Count 266 k/uL (150-450); RBC 4.76 m/uL (4.30-5.90); WBC 7.2 k/uL (3.8-10.6)
[2023-10-06 06:59] LABS: INR 0.8 (<1.2); Partial Thromboplastin Time 23.5 sec (22.0-30.0); Prothrombin Time 9.6 sec (10.0-12.5)
[2023-10-06 07:01] VITALS: TEMP 99
--- NOTE | 2023-10-06 07:20 | ED ---
General Adult HPI - General Chief complaint: Shortness of Breath Stated complaint: Difficulty Breathing Time Seen by Provider: 10/06/23 06:14 Source: patient, RN notes reviewed Mode of arrival: ambulatory Limitations: no limitations - History of Present Illness Initial comments: 63-year-old male presents emergency department chief complaint of shortness of breath. Patient states he has asthma history states he had increasing wheezing, cough congestion. He is unsure if he has a fever. He states he has recurrent issues with his asthma and has been hospitalized in the past. Patient denies any leg pain or leg swelling no abdominal pain or usual. Patient states he had no sick contacts that he is aware of. - Related Data Home Medications Medication Instructions Recorded Confirmed Montelukast Sodium [Singulair] 10 mg PO DAILY@1400 05/18/18 06/03/23 Fluticasone Propionate [Flovent 2 puff INHALATION RT-BID 06/16/20 06/03/23 Hfa 220 mcg] Albuterol Inhaler [Ventolin Hfa 2 puff INHALATION RT-Q4H PRN 02/05/22 06/03/23 Inhaler] Albuterol Nebulized [Ventolin 2.5 mg INHALATION RT-QID PRN 06/03/23 06/03/23 Nebulized] metFORMIN HCL 500 mg PO PC-SUPPER 06/03/23 06/03/23 Previous Rx's Medication Instructions Recorded lisinopriL [Zestril] 20 mg PO BID #60 tab 06/04/23 predniSONE [Deltasone] 40 mg PO DAILY #8 tab 08/12/23 Ipratropium-Albuterol Nebulize 3 ml INHALATION QID #25 each 10/06/23 [Duoneb 0.5 mg-3 mg/3 ml Soln] predniSONE 50 mg PO DAILY #5 tab 10/06/23 Allergies Allergy/AdvReac Type Severity Reaction Status Date / Time adhesive Allergy Rash/Hives Verified 10/06/23 06:13 Nbtslyp-WJM-MvE Reductase AdvReac MUSCLE PAIN Verified 10/06/23 06:13 Inhibitor [Lxeivoz-Jrq-Zhl Reductase Inhibitor] Review of Systems ROS Statement: Those systems with pertinent positive or pertinent negative responses have been documented in the HPI. ROS Other: All systems not noted in ROS Statement are negative. Past Medical History Past Medical History: Asthma, COPD, Diabetes Mellitus, Hyperlipidemia, Hypertension, Osteoarthritis (OA) Additional Past Medical History / Comment(s): Persistent asthma, NIDDM II- arthritis R knee, COVID + History of Any Multi-Drug Resistant Organisms: None Reported Past Surgical History: Hernia Repair Additional Past Surgical History / Comment(s): Umbilical hernia repair Past Anesthesia/Blood Transfusion Reactions: Motion Sickness Past Psychological History: No Psychological Hx Reported Smoking Status: Former smoker Past Alcohol Use History: None Reported Past Drug Use History: None Reported - Past Family History Mother History Unknown: Yes Family Medical History: Cancer Additional Family Medical History / Comment(s): Mother of ovarian cancer at the age of 78yrs. Father History Unknown: Yes Family Medical History: GI Bleed Additional Family Medical History / Comment(s): Father around age 50 from a bleeding ulcer. Brother(s) Family Medical History: No Reported History Additional Family Medical History / Comment(s): The patient has 2 brothers and one from pneumonia at age 59, 1 is alive with history of bariatric surgery. Sister(s) Family Medical History: No Reported History Additional Family Medical History / Comment(s): Patient has 2 sisters and one has history of gallbladder disease. Daughter(s) Family Medical History: Unable to Obtain Additional Family Medical History / Comment(s): Patient has one daughter with no major medical problems. Son(s) Additional Family Medical History / Comment(s): Patient has 2 sons and one has hypertension. General Exam Limitations: no limitations General appearance: alert, in no apparent distress Head exam: Present: atraumatic, normocephalic, normal inspection Eye exam: Present: normal appearance, PERRL, EOMI. Absent: scleral icterus, conjunctival injection, periorbital swelling ENT exam: Present: normal exam, normal oropharynx, mucous membranes moist Neck exam: Present: normal inspection, full ROM. Absent: tenderness, meningismus, lymphadenopathy Respiratory exam: Present: respiratory distress (Minimal), wheezes. Absent: normal lung sounds bilaterally, rales, rhonchi, stridor Cardiovascular Exam: Present: regular rate, normal rhythm, normal heart sounds. Absent: systolic murmur, diastolic murmur, rubs, gallop, clicks GI/Abdominal exam: Present: soft, normal bowel sounds. Absent: distended, tenderness, guarding, rebound, rigid Course Vital Signs 10/06/23 10/06/23 10/06/23 06:11 06:44 07:51 Temperature 99 F Pulse Rate 92 89 Respiratory 22 22 Rate Blood Pressure 132/79 O2 Sat by Pulse 98 Oximetry 10/06/23 10/06/23 07:58 07:59 Temperature Pulse Rate 89 89 Respiratory Rate Blood Pressure O2 Sat by Pulse Oximetry EKG Findings - EKG Comments: EKG Findings:: EKG performed at 6: 18 sinus rhythm rate of 85 DC 173 QRS 113 QT/QTc 349/391 - EKG Results: EKG: interpreted by GENAD Medical Decision Making - Medical Decision Making Was pt. sent in by a medical professional or institution (, [place], HOSPITAL INTERN, urgent care, hospital, or penitentiary...) When possible be specific @ -No Did you speak to anyone other than the patient for history (EMS, parent, family, police, friend...)? What history was obtained from this source @ -No Did you review nursing and triage notes (agree or disagree)? Why? @ -I reviewed and agree with nursing and triage notes Were old charts reviewed (outside hosp., previous admission, EMS record, old EKG, old radiological studies, urgent care reports/EKG's, penitentiary records)? Report findings @ -No old charts were reviewed Differential Diagnosis (chest pain, altered mental status, abdominal pain women, abdominal pain men, vaginal bleeding, weakness, fever, dyspnea, syncope, headache, dizziness, GI bleed, back pain, seizure, CVA, palpatations, mental health, musculoskeletal)? @ -[COVID 19, RSV, influenza, pneumonia, acute bronchitis, URI, this list is not all inclusive EKG interpreted by me (3pts min.). @ -As above X-rays interpreted by me (1pt min.). @ -Chest x-ray shows no acute cardiopulmonary process no evidence of pneumonia CT interpreted by me (1pt min.). @ -None done U/S interpreted by me (1pt. min.). @ -None done What testing was considered but not performed or refused? (CT, X-rays, U/S, labs)? Why? @ -None What meds were considered but not given or refused? Why? @ -None Did you discuss the management of the patient with other professionals (professionals i.e. , PA, HOSPITAL INTERN, lab, RT, psych nurse, professor of social work, machine puller, teacher, property and supply officer, embedded case manager)? Give summary @ -No Was smoking cessation discussed for >3mins.? @ -No Was critical care preformed (if so, how long)? @ -No Were there social determinants of health that impacted care today? How? (Homelessness, low income, unemployed, alcoholism, drug addiction, transportation, low edu. Level, literacy, decrease access to med. care, long-term, rehab)? @ -No Was there de-escalation of care discussed even if they declined (Discuss DNR or withdrawal of care, Hospice)? DNR status @ -No What co-morbidities impacted this encounter? (DM, HTN, Smoking, COPD, CAD, Cancer, CVA, ARF, Chemo, Hep., AIDS, mental health diagnosis, sleep apnea, morbid obesity)? @ -Asthma e Was patient admitted / discharged? Hospital course, mention meds given and rou te, prescriptions, significant lab abnormalities, going to OR and other pertinent info. @ -[Discharge patient is RSV positive. Patient has no hypoxia he does wear chronic oxygen at home. Patient does have moderate wheezing restarted on steroids is given initial dose of steroids in the emergency department. He is in no signs distress will be discharged in stable condition. Undiagnosed new problem with uncertain prognosis? @ -No Drug Therapy requiring intensive monitoring for toxicity (Heparin, Nitro, Insulin, Cardizem)? @ -No Were any procedures done? @ -No Diagnosis/symptom? @ -[RSV, asthma Acute, or Chronic, or Acute on Chronic? @ -Acute Uncomplicated (without systemic symptoms) or Complicated (systemic symptoms)? @ -[Uncomplicated Side effects of treatment? @ -[No Exacerbation, Progression, or Severe Exacerbation? @ -Exacerbation Poses a threat to life or bodily function? How? (Chest pain, USA, ID, pneumonia, PE, COPD, DKA, ARF, appy, cholecystitis, CVA, Diverticulitis, Homicidal, Suicidal, threat to staff... and all critical care pts) @ -No - Lab Data Result diagrams: 10/06/23 06:40 Lab Results 10/06/23 10/06/23 10/06/23 Range/Units 06:33 06:40 06:40 WBC 7.2 (3.8-10.6) k/uL RBC 4.76 (4.30-5.90) m/uL Hgb 14.8 (13.0-17.5) gm/dL Hct 45.1 (39.0-53.0) % MCV 94.9 (80.0-100.0) fL MCH 31.2 (25.0-35.0) pg MCHC 32.9 (31.0-37.0) g/dL RDW 13.0 (11.5-15.5) % Plt Count 266 (150-450) k/uL MPV 6.6 Neutrophils % 61 % Lymphocytes % 21 % Monocytes % 9 % Eosinophils % 5 % Basophils % 1 % Neutrophils # 4.4 (1.3-7.7) k/uL Lymphocytes # 1.5 (1.0-4.8) k/uL Monocytes # 0.7 (0-1.0) k/uL Eosinophils # 0.4 (0-0.7) k/uL Basophils # 0.0 (0-0.2) k/uL PT 9.6 L (10.0-12.5) sec INR 0.8 (<1.2) APTT 23.5 (22.0-30.0) sec Plasma Lactic Acid Jorge (0.7-2.0) mmol/L Troponin I (0.000-0.034) ng/mL Influenza Type A (PCR) Not Detected (Not Detectd) Influenza Type B (PCR) Not Detected (Not Detectd) RSV (PCR) Detected A (Not Detectd) SARS-CoV-2 (PCR) Not Detected (Not Detectd) 10/06/23 10/06/23 Range/Units 06:40 06:40 WBC (3.8-10.6) k/uL RBC (4.30-5.90) m/uL Hgb (13.0-17.5) gm/dL Hct (39.0-53.0) % MCV (80.0-100.0) fL MCH (25.0-35.0) pg MCHC (31.0-37.0) g/dL RDW (11.5-15.5) % Plt Count (150-450) k/uL MPV Neutrophils % % Lymphocytes % % Monocytes % % Eosinophils % % Basophils % % Neutrophils # (1.3-7.7) k/uL Lymphocytes # (1.0-4.8) k/uL Monocytes # (0-1.0) k/uL Eosinophils # (0-0.7) k/uL Basophils # (0-0.2) k/uL PT (10.0-12.5) sec INR (<1.2) APTT (22.0-30.0) sec Plasma Lactic Acid Jorge 1.6 (0.7-2.0) mmol/L Troponin I <0.012 (0.000-0.034) ng/mL Influenza Type A (PCR) (Not Detectd) Influenza Type B (PCR) (Not Detectd) RSV (PCR) (Not Detectd) SARS-CoV-2 (PCR) (Not Detectd) Disposition Clinical Impression: RSV infection, Asthma with exacerbation Disposition: HOME SELF-CARE Condition: Stable Instructions (If sedation given, give patient instructions): Respiratory Syncytial Virus (ED) Additional Instructions: Please return to the Emergency Department if symptoms worsen or any other c oncerns. Prescriptions: Ipratropium-Albuterol Nebulize [Duoneb 0.5 mg-3 mg/3 ml Soln] 3 ml INHALATION QID #25 each predniSONE 50 mg PO DAILY #5 tab Is patient prescribed a controlled substance at d/c from ED?: No Referrals: Marco Zamora [Primary Care Provider] - 1-2 days Time of Disposition: 08:04
--- NOTE | 2023-10-06 07:27 | XR ---
EXAMINATION TYPE: XR chest 2V DATE OF EXAM: 10/06/2023 COMPARISON: 08/12/2023 HISTORY: Difficulty breathing TECHNIQUE: Frontal and lateral views of the chest are obtained. FINDINGS: There is no focal air space opacity, pleural effusion, or pneumothorax seen. The cardiac silhouette size is within normal limits. The osseous structures are intact. IMPRESSION: No acute cardiopulmonary process.
[2023-10-06] MEDS: IPRATROPIUM-ALBUTEROL 3 ML NEB INHALATION STA (07:51)
[2023-10-06 08:26] VITALS: PULSE 100
[2023-10-06 08:29] LABS: ALT 13 U/L (4-49); AST 19 U/L (17-59); African American GFR (CKD) >90 (>60 ml/min/1.73 sqM); Albumin 3.8 g/dL (3.5-5.0); Alkaline Phosphatase 67 U/L (38-126); Anion Gap 3 mmol/L; Blood Urea Nitrogen 14 mg/dL (9-20); Calcium 8.7 mg/dL (8.4-10.2); Carbon Dioxide 29 mmol/L (22-30); Chloride 105 mmol/L (98-107); Glucose 145 mg/dL (74-99); Non-African American GFR(CKD) >90 (>60 ml/min/1.73 sqM); Potassium 4.7 mmol/L (3.5-5.1); Sodium 137 mmol/L (137-145); Total Bilirubin 0.5 mg/dL (0.2-1.3); Total Protein 6.4 g/dL (6.3-8.2)
[2023-10-06 08:55] VITALS: BP 175/98; RESP 18
== END 2023-10-06 08:54 | disposition home or self-care (01) ==
LOC: EC 06:10
DX: J44.1 Chronic obstructive pulmonary disease with (acute) exacerbation (principal); B97.4 Respiratory syncytial virus as the cause of diseases classified elsewhere; E11.9 Type 2 diabetes mellitus without complications; I10 Essential (primary) hypertension; Z87.891 Personal history of nicotine dependence; Z79.899 Other long term (current) drug therapy; Z79.51 Long term (current) use of inhaled steroids; Z79.84 Long term (current) use of oral hypoglycemic drugs; Z20.822 Contact with and (suspected) exposure to COVID-19; Z88.8 Allergy status to other drugs, medicaments and biological substances
CPT/HCPCS: 36415; 94640 ×2; 93005; 80053; 83605; 83735; 84484; 85025; 85610; 85730; 87636; 71046; 99285; 96374; J2930

== ENCOUNTER 2023-12-23 07:02 | Emergency (ER) | payer BC ==
--- NOTE | 2023-12-23 07:29 | ED ---
General Adult HPI - General Chief complaint: Shortness of Breath Stated complaint: ALEXUS Time Seen by Provider: 12/23/23 07:09 Source: patient, RN notes reviewed Mode of arrival: wheelchair Limitations: no limitations - History of Present Illness Initial comments: 63-year-old male presents emergency department chief complaint of shortness of breath. Patient that she has COPD, asthma. Patient states has had increasing shortness of breath and chest congestion over the last few days. Patient states he is on oxygen 3 L chronically. Patient states that he feels like he is requiring more. His documentation designer is Dr. Restrepo. Patient denies any fever patient has any significant leg swelling out of his usual baseline. Denies abdominal pain no sick contacts. He states his cough is productive at times. - Related Data Home Medications Medication Instructions Recorded Confirmed Montelukast Sodium [Singulair] 10 mg PO DAILY@1400 05/18/18 06/03/23 Fluticasone Propionate [Flovent 2 puff INHALATION RT-BID 06/16/20 06/03/23 Hfa 220 mcg] Albuterol Inhaler [Ventolin Hfa 2 puff INHALATION RT-Q4H PRN 02/05/22 06/03/23 Inhaler] Albuterol Nebulized [Ventolin 2.5 mg INHALATION RT-QID PRN 06/03/23 06/03/23 Nebulized] metFORMIN HCL 500 mg PO PC-SUPPER 06/03/23 06/03/23 Previous Rx's Medication Instructions Recorded lisinopriL [Zestril] 20 mg PO BID #60 tab 06/04/23 predniSONE [Deltasone] 40 mg PO DAILY #8 tab 08/12/23 Ipratropium-Albuterol Nebulize 3 ml INHALATION QID #25 each 10/06/23 [Duoneb 0.5 mg-3 mg/3 ml Soln] Ipratropium-Albuterol Nebulize 3 ml INHALATION QID #25 each 10/06/23 [Duoneb 0.5 mg-3 mg/3 ml Soln] predniSONE 50 mg PO DAILY #5 tab 10/06/23 predniSONE 50 mg PO DAILY #5 tab 10/06/23 Ipratropium-Albuterol Nebulize 3 ml INHALATION QID #25 each 12/23/23 [Duoneb 0.5 mg-3 mg/3 ml Soln] predniSONE 50 mg PO DAILY #5 tab 12/23/23 Allergies Allergy/AdvReac Type Severity Reaction Status Date / Time adhesive Allergy Rash/Hives Verified 10/06/23 06:13 Fxhdqxj-SZX-[id number] Reductase AdvReac MUSCLE PAIN Verified 10/06/23 06:13 Inhibitor [Ghyfthu-Mta-Trp Reductase Inhibitor] Review of Systems ROS Statement: Those systems with pertinent positive or pertinent negative responses have been documented in the HPI. ROS Other: All systems not noted in ROS Statement are negative. Past Medical History Past Medical History: Asthma, COPD, Diabetes Mellitus, Hyperlipidemia, Hyp ertension, Osteoarthritis (OA) Additional Past Medical History / Comment(s): Persistent asthma, NIDDM II- arthritis R knee, COVID + History of Any Multi-Drug Resistant Organisms: None Reported Past Surgical History: Hernia Repair Additional Past Surgical History / Comment(s): Umbilical hernia repair Past Anesthesia/Blood Transfusion Reactions: Motion Sickness Past Psychological History: No Psychological Hx Reported Smoking Status: Former smoker Past Alcohol Use History: None Reported Past Drug Use History: None Reported - Past Family History Mother History Unknown: Yes Family Medical History: Cancer Additional Family Medical History / Comment(s): Mother of ovarian cancer at the age of 78yrs. Father History Unknown: Yes Family Medical History: GI Bleed Additional Family Medical History / Comment(s): Father around age 50 from a bleeding ulcer. Brother(s) Family Medical History: No Reported History Additional Family Medical History / Comment(s): The patient has 2 brothers and one from pneumonia at age 59, 1 is alive with history of bariatric surgery. Sister(s) Family Medical History: No Reported History Additional Family Medical History / Comment(s): Patient has 2 sisters and one has history of gallbladder disease. Daughter(s) Family Medical History: Unable to Obtain Additional Family Medical History / Comment(s): Patient has one daughter with no major medical problems. Son(s) Additional Family Medical History / Comment(s): Patient has 2 sons and one has hypertension. General Exam Limitations: no limitations General appearance: alert, in no apparent distress Head exam: Present: atraumatic, normocephalic, normal inspection Eye exam: Present: normal appearance, PERRL, EOMI. Absent: scleral icterus, conjunctival injection, periorbital swelling ENT exam: Present: normal exam, normal oropharynx, mucous membranes moist Neck exam: Present: normal inspection. Absent: tenderness, meningismus, lymphadenopathy Respiratory exam: Present: respiratory distress (Minimal), wheezes, rhonchi. Absent: normal lung sounds bilaterally, rales, stridor Cardiovascular Exam: Present: regular rate, normal rhythm, normal heart sounds. Absent: systolic murmur, diastolic murmur, rubs, gallop, clicks Neurological exam: Present: alert Skin exam: Present: warm, dry, intact, normal color. Absent: rash Course Vital Signs 12/23/23 12/23/23 12/23/23 07:04 07:47 08:27 Temperature 98.9 F Pulse Rate 98 94 82 Respiratory 22 18 Rate Blood Pressure 145/86 119/66 O2 Sat by Pulse 98 96 Oximetry 12/23/23 08:44 Temperature Pulse Rate 86 Respiratory Rate Blood Pressure O2 Sat by Pulse Oximetry EKG Findings - EKG Comments: EKG Findings:: EKG performed at 7: 27 sinus rhythm rate of 91 [place] 169 QRS 113 QT/QTc 353/402 - EKG Results: EKG: interpreted by JUSTIN Medical Decision Making - Medical Decision Making Was pt. sent in by a medical professional or institution (, PA, TRAFFIC CONTROL SIGNALER, urgent care, hospital, or correction...) When possible be specific @ -No Did you speak to anyone other than the patient for history (EMS, parent, family, police, friend...)? What history was obtained from this source @ -No Did you review nursing and triage notes (agree or disagree)? Why? @ -I reviewed and agree with nursing and triage notes Were old charts reviewed (outside hosp., previous admission, EMS record, old EKG, old radiological studies, urgent care reports/EKG's, correction records)? Report findings @ -No old charts were reviewed Differential Diagnosis (chest pain, altered mental status, abdominal pain women, abdominal pain men, vaginal bleeding, weakness, fever, dyspnea, syncope, headache, dizziness, GI bleed, back pain, seizure, CVA, palpatations, mental health, musculoskeletal)? @ -Differential Dyspnea: Coronary syndrome, arrhythmia, tamponade, asthma, COPD, pulmonary embolism, pneumonia, pneumothorax, pulmonary effusion, anaphylaxis, diabetic ketoacidosis, flailed chest, pulmonary contusion, diaphragmatic rupture, anemia, neuromuscular , this is not meant to be an all-inclusive list. EKG interpreted by me (3pts min.). @ -As above X-rays interpreted by me (1pt min.). @ -Chest x-ray shows no acute cardiopulmonary process CT interpreted by me (1pt min.). @ -None done U/S interpreted by me (1pt. min.). @ -None done What testing was considered but not performed or refused? (CT, X-rays, U/S, labs)? Why? @ -None What meds were considered but not given or refused? Why? @ -None Did you discuss the management of the patient with other professionals (professionals i.e. , PA, TRAFFIC CONTROL SIGNALER, lab, RT, psych nurse, social services analyst, director targeted marketing, teacher, aoc plans intelligence officer chief, lead case manager)? Give summary @ -No Was smoking cessation discussed for >3mins.? @ -No Was critical care preformed (if so, how long)? @ -No Were there social determinants of health that impacted care today? How? (Homelessness, low income, unemployed, alcoholism, drug addiction, trans portation, low edu. Level, literacy, decrease access to med. care, fdc, rehab)? @ -No Was there de-escalation of care discussed even if they declined (Discuss DNR or withdrawal of care, Hospice)? DNR status @ -No What co-morbidities impacted this encounter? (DM, HTN, Smoking, COPD, CAD, Cancer, CVA, ARF, Chemo, Hep., AIDS, mental health diagnosis, sleep apnea, morbid obesity)? @ -COPD asthma Was patient admitted / discharged? Hospital course, mention meds given and route, prescriptions, significant lab abnormalities, going to OR and other pertinent info. @ -States charge patient feels great infuriated DuoNeb treatment, x-ray laboratory studies unremarkable. Patient has mild COPD exacerbation we discharged in stable condition return parameters discussed, patient was offered admission patient declines. Undiagnosed new problem with uncertain prognosis? @ -No Drug Therapy requiring intensive monitoring for toxicity (Heparin, Nitro, Insulin, Cardizem)? @ -No Were any procedures done? @ -No Diagnosis/symptom? @ -COPD exacerbation Acute, or Chronic, or Acute on Chronic? @ -Acute Uncomplicated (without systemic symptoms) or Complicated (systemic symptoms)? @ -Complicated Side effects of treatment? @ -No Exacerbation, Progression, or Severe Exacerbation? @ -No Poses a threat to life or bodily function? How? (Chest pain, USA, VT, pneumonia, PE, COPD, DKA, ARF, appy, cholecystitis, CVA, Diverticulitis, Homicidal, Suicidal, threat to staff... and all critical care pts) @ -Yes low likelihood COPD exacerbation - Lab Data Result diagrams: 12/23/23 07:35 12/23/23 07:35 Lab Results 12/23/23 12/23/23 12/23/23 Range/Units 07:35 07:35 07:35 WBC 7.9 (3.8-10.6) k/uL RBC 4.83 (4.30-5.90) m/uL Hgb 14.8 (13.0-17.5) gm/dL Hct 46.0 (39.0-53.0) % MCV 95.2 (80.0-100.0) fL MCH 30.7 (25.0-35.0) pg MCHC 32.2 (31.0-37.0) g/dL RDW 13.6 (11.5-15.5) % Plt Count 274 (150-450) k/uL MPV 6.7 Neutrophils % 55 % Lymphocytes % 27 % Monocytes % 8 % Eosinophils % 7 % Basophils % 1 % Neutrophils # 4.4 (1.3-7.7) k/uL Lymphocytes # 2.1 (1.0-4.8) k/uL Monocytes # 0.6 (0-1.0) k/uL Eosinophils # 0.6 (0-0.7) k/uL Basophils # 0.1 (0-0.2) k/uL PT 9.6 L (10.0-12.5) sec INR 0.8 (<1.2) APTT 23.9 (22.0-30.0) sec Sodium 139 (137-145) mmol/L Potassium 4.0 (3.5-5.1) mmol/L Chloride 107 (98-107) mmol/L Carbon Dioxide 27 (22-30) mmol/L Anion Gap 5 mmol/L BUN 15 (9-20) mg/dL Creatinine 0.71 (0.66-1.25) mg/dL Est GFR (CKD-EPI)AfAm >90 (>60 ml/min/1.73 sqM) Est GFR (CKD-EPI)NonAf >90 (>60 ml/min/1.73 sqM) Glucose 121 H (74-99) mg/dL Plasma Lactic Acid Jorge (0.7-2.0) mmol/L Calcium 8.5 (8.4-10.2) mg/dL Magnesium 1.9 (1.6-2.3) mg/dL Total Bilirubin 0.4 (0.2-1.3) mg/dL AST 16 L (17-59) U/L ALT 12 (4-49) U/L Alkaline Phosphatase 61 (38-126) U/L Troponin I (0.000-0.034) ng/mL NT-Pro-B Natriuret Pep 28 pg/mL Total Protein 6.2 L (6.3-8.2) g/dL Albumin 3.5 (3.5-5.0) g/dL 12/23/23 12/23/23 Range/Units 07:35 07:35 WBC (3.8-10.6) k/uL RBC (4.30-5.90) m/uL Hgb (13.0-17.5) gm/dL Hct (39.0-53.0) % MCV (80.0-100.0) fL MCH (25.0-35.0) pg MCHC (31.0-37.0) g/dL RDW (11.5-15.5) % Plt Count (150-450) k/uL MPV Neutrophils % % Lymphocytes % % Monocytes % % Eosinophils % % Basophils % % Neutrophils # (1.3-7.7) k/uL Lymphocytes # (1.0-4.8) k/uL Monocytes # (0-1.0) k/uL Eosinophils # (0-0.7) k/uL Basophils # (0-0.2) k/uL PT (10.0-12.5) sec INR (<1.2) APTT (22.0-30.0) sec Sodium (137-145) mmol/L Potassium (3.5-5.1) mmol/L Chloride (98-107) mmol/L Carbon Dioxide (22-30) mmol/L Anion Gap mmol/L BUN (9-20) mg/dL Creatinine (0.66-1.25) mg/dL Est GFR (CKD-EPI)AfAm (>60 ml/min/1.73 sqM) Est GFR (CKD-EPI)NonAf (>60 ml/min/1.73 sqM) Glucose (74-99) mg/dL Plasma Lactic Acid Jorge 1.2 (0.7-2.0) mmol/L Calcium (8.4-10.2) mg/dL Magnesium (1.6-2.3) mg/dL Total Bilirubin (0.2-1.3) mg/dL AST (17-59) U/L ALT (4-49) U/L Alkaline Phosphatase (38-126) U/L Troponin I <0.012 (0.000-0.034) ng/mL NT-Pro-B Natriuret Pep pg/mL Total Protein (6.3-8.2) g/dL Albumin (3.5-5.0) g/dL Disposition Clinical Impression: Acute exacerbation of chronic obstructive pulmonary disease Disposition: HOME SELF-CARE Condition: Stable Instructions (If sedation given, give patient instructions): COPD (Chronic Obstructive Pulmonary Disease) (ED) Additional Instructions: Please return to the Emergency Department if symptoms worsen or any other concerns. Prescriptions: Ipratropium-Albuterol Nebulize [Duoneb 0.5 mg-3 mg/3 ml Soln] 3 ml INHALATION QID #25 each predniSONE 50 mg PO DAILY #5 tab Is patient prescribed a controlled substance at d/c from ED?: No Referrals: Marco Zamora [Primary Care Provider] - 1-2 days Time of Disposition: 09:09
[2023-12-23 07:45] VITALS: TEMP 98.9
[2023-12-23 07:47] LABS: Basophils # (A) 0.1 k/uL (0-0.2); Basophils % (A) 1 %; Eosinophils # (A) 0.6 k/uL (0-0.7); Eosinophils % (A) 7 %; HGB 14.8 gm/dL (13.0-17.5); Lymphocytes # (A) 2.1 k/uL (1.0-4.8); Lymphocytes % (A) 27 %; MCH 30.7 pg (25.0-35.0); MCHC 32.2 g/dL (31.0-37.0); MCV 95.2 fL (80.0-100.0); Mean Platelet Volume 6.7; Monocytes # (A) 0.6 k/uL (0-1.0); Monocytes % (A) 8 %; Neutrophils # (A) 4.4 k/uL (1.3-7.7); Neutrophils % (A) 55 %; Platelet Count 274 k/uL (150-450); RBC 4.83 m/uL (4.30-5.90); RDW 13.6 % (11.5-15.5); WBC 7.9 k/uL (3.8-10.6)
[2023-12-23] MEDS: methylPREDNISolone SOD SUCCI 125 MG/2 ML VIAL IV STA (07:51)
[2023-12-23 07:54] LABS: INR 0.8 (<1.2); Partial Thromboplastin Time 23.9 sec (22.0-30.0); Prothrombin Time 9.6 sec (10.0-12.5)
[2023-12-23 08:04] LABS: ALT 12 U/L (4-49); AST 16 U/L (17-59); African American GFR (CKD) >90 (>60 ml/min/1.73 sqM); Albumin 3.5 g/dL (3.5-5.0); Alkaline Phosphatase 61 U/L (38-126); Anion Gap 5 mmol/L; Blood Urea Nitrogen 15 mg/dL (9-20); Calcium 8.5 mg/dL (8.4-10.2); Carbon Dioxide 27 mmol/L (22-30); Chloride 107 mmol/L (98-107); Glucose 121 mg/dL (74-99); Magnesium 1.9 mg/dL (1.6-2.3); Non-African American GFR(CKD) >90 (>60 ml/min/1.73 sqM); Sodium 139 mmol/L (137-145); Total Bilirubin 0.4 mg/dL (0.2-1.3); Total Protein 6.2 g/dL (6.3-8.2)
[2023-12-23 08:12] LABS: NT-Pro-B-Type Natriuretic Pept 28 pg/mL
--- NOTE | 2023-12-23 08:21 | XR ---
EXAMINATION TYPE: XR chest 2V DATE OF EXAM: 12/23/2023 COMPARISON: 10/06/2023 TECHNIQUE: PA and lateral views submitted. HISTORY: Shortness of breath FINDINGS: The lungs are clear and there is no pneumothorax, pleural effusion, or focal pneumonia. Heart size normal and no overt failure. Osseous structures demonstrate hypertrophic and degenerative changes of the spine. AC joint arthropathy. Mild prominence of the pulmonary arteries can be associated with pul monary arterial hypertension. IMPRESSION: 1. No acute process.
[2023-12-23] MEDS: IPRATROPIUM-ALBUTEROL 3 ML NEB INHALATION STA (08:27)
[2023-12-23 10:03] VITALS: BP 143/74; PULSE 99; RESP 16
== END 2023-12-23 10:00 | disposition home or self-care (01) ==
LOC: EC 07:02
DX: J44.1 Chronic obstructive pulmonary disease with (acute) exacerbation (principal); Z88.8 Allergy status to other drugs, medicaments and biological substances; Z91.09 Other allergy status, other than to drugs and biological substances; Z79.51 Long term (current) use of inhaled steroids; Z79.899 Other long term (current) drug therapy; Z87.891 Personal history of nicotine dependence
CPT/HCPCS: 36415; 94640; 93005; 83880; 80053; 83605; 83735; 84484; 85025; 85610; 85730; 71046; 99285; 96374; J2919

== ENCOUNTER 2024-05-28 12:11 | Observation (INO) | payer BC ==
--- NOTE | 2024-05-28 12:50 | ED ---
General Adult HPI - General Chief complaint: Chest Pain Stated complaint: chest pain/SOB Time Seen by Provider: 05/28/24 12:29 Source: patient Mode of arrival: ambulatory Limitations: no limitations - History of Present Illness Initial comments: Dictation was produced using [employer] dictation software. please excuse any grammatical, word or spelling errors. Chief Complaint: 64-year-old male with multiple comorbidities presents to the ER for right-sided chest pain History of Present Illness: Patient 64-year-old male states that he is here in the emergency department today for shortness of breath and right-sided chest pain. Patient has history of COPD wears home oxygen. He has history of diabetes and asthma. Also hypertension. States that the pain is sharp to his right anterior chest. He does complain of some mild nausea associated with the symptoms. Denies any history of coronary artery disease states that earlier this year he had a negative stress test. He sees a marine chronometer assembler for vascular health however has legibly no known coronary artery disease. He has no family history of heart attacks. Patient states that he does experience some mild nausea with this chest pain. The ROS documented in this emergency department record has been reviewed and confirmed by me. Those systems with pertinent positive or negative responses have been documented in the HPI. All other systems are other negative and/or noncontributory. - Related Data Home Medications Medication Instructions Recorded Confirmed Montelukast Sodium [Singulair] 10 mg PO DAILY 05/18/18 05/28/24 Fluticasone Propionate [Flovent 2 puff INHALATION RT-BID 06/16/20 05/28/24 Hfa 220 mcg] Albuterol Inhaler [Ventolin Hfa 2 puff INHALATION RT-Q4H PRN 02/05/22 05/28/24 Inhaler] Ipratropium-Albuterol Nebulize 3 ml INHALATION RT-QID 05/28/24 05/28/24 [Duoneb 0.5 mg-3 mg/3 ml Soln] Magnesium (Unknown Strength) 1 dose PO DAILY 05/28/24 05/28/24 [place]-3 Fish Oil (Unknown Strength) 1 dose PO DAILY 05/28/24 05/28/24 Vitamin C (Unknown Strength) 1 dose PO DAILY 05/28/24 05/28/24 Vitamin D3 (Unknown Strength) 1 dose PO DAILY 05/28/24 05/28/24 Zinc (Unknown Strength) 1 dose PO DAILY 05/28/24 05/28/24 lisinopriL [Zestril] 20 mg PO DAILY 05/28/24 05/28/24 metFORMIN HCL ER [Glucophage XR] 500 mg PO DAILY 05/28/24 05/28/24 Allergies Allergy/AdvReac Type Severity Reaction Status Date / Time adhesive Allergy Rash/Hives Verified 05/28/24 14:34 Fqhzegh-BPD-JyX Reductase AdvReac MUSCLE PAIN Verified 05/28/24 14:34 Inhibitor [Nwxiyiz-Ukp-Rwx Reductase Inhibitor] Review of Systems ROS Statement: Those systems with pertinent positive or pertinent negative responses have been documented in the HPI. ROS Other: All systems not noted in ROS Statement are negative. Past Medical History Past Medical History: Asthma, COPD, Diabetes Mellitus, Hyperlipidemia, Hypertension, Osteoarthritis (OA) Additional Past Medical History / Comment(s): Persistent asthma, NIDDM II- arthritis R knee, COVID + History of Any Multi-Drug Resistant Organisms: None Reported Past Surgical History: Hernia Repair Additional Past Surgical History / Comment(s): Umbilical hernia repair Past Anesthesia/Blood Transfusion Reactions: Motion Sickness Past Psychological History: No Psychological Hx Reported Smoking Status: Former smoker Past Alcohol Use History: None Reported Past Drug Use History: None Reported - Past Family History Mother History Unknown: Yes Family Medical History: Cancer Additional Family Medical History / Comment(s): Mother of ovarian cancer at the age of 78yrs. Father History Unknown: Yes Family Medical History: GI Bleed Additional Family Medical History / Comment(s): Father around age 50 from a bleeding ulcer. Brother(s) Family Medical History: No Reported History Additional Family Medical History / Comment(s): The patient has 2 brothers and one from pneumonia at age 59, 1 is alive with history of bariatric surgery. Sister(s) Family Medical History: No Reported History Additional Family Medical History / Comment(s): Patient has 2 sisters and one has history of gallbladder disease. Daughter(s) Family Medical History: Unable to Obtain Additional Family Medical History / Comment(s): Patient has one daughter with no major medical problems. Son(s) Additional Family Medical History / Comment(s): Patient has 2 sons and one has hypertension. General Exam - General Exam Comments Initial Comments: PHYSICAL EXAM: General Impression: Alert and oriented x3, not in acute distress HEENT: Normocephalic atraumatic, extra-ocular movements intact, pupils equal and reactive to light bilaterally, mucous membranes moist. Cardiovascular: Heart regular rate and rhythm Chest: Able to complete full sentences, no retractions, no tachypnea Abdomen: abdomen soft, non-tender, non-distended, no organomegaly Musculoskeletal: Pulses present and equal in all extremities, no peripheral edema Motor: no focal deficits noted Neurological: CN II-XII grossly intact, no focal motor or sensory deficits noted Skin: Intact with no visualized rashes Psych: Normal affect and mood Limitations: no limitations Course Vital Signs 05/28/24 05/28/24 12:14 14:26 Temperature 97.2 F L Pulse Rate 95 79 Respiratory 18 22 Rate Blood Pressure 207/92 125/83 O2 Sat by Pulse 97 99 Oximetry EKG Findings - EKG Comments: EKG Findings:: My EKG interpretation: Ventricular rate 88, sinus rhythm,. 144, QRS 110, QTc 402. No CT prolongation, no QTC prolongation, no ST or T-wave changes noted. Overall, this EKG is unremarkable Medical Decision Making - Medical Decision Making Was pt. sent in by a medical professional or institution (, PA, SPORTS ADMINISTRATOR, urgent care, hospital, or snf...) When possible be specific @ -No Did you speak to anyone other than the patient for history (EMS, parent, family, police, friend...)? What history was obtained from this source @ -No Did you review nursing and triage notes (agree or disagree)? Why? @ -I reviewed and agree with nursing and triage notes Were old charts reviewed (outside hosp., previous admission, EMS record, old EKG, old radiological studies, urgent care reports/EKG's, snf records)? Report findings @ -No old charts were reviewed Differential Diagnosis (chest pain, altered mental status, abdominal pain women, abdominal pain men, vaginal bleeding, musculoskeletal, weakness, fever, dyspnea, syncope, headache, dizziness, GI bleed, back pain, seizure, CVA, palpatations, mental health)? @ -Differential Chest Pain: Stable Angina, Unstable Angina, STEMI, NSTEMI Aortic Dissection, Pneumothorax, Musculoskeletal, Esophageal Spasm GERD, Cholecystitis, Pancreatitis, Zoster, this is not meant to be an all-inclusive list. EKG interpreted by me (3pts min.). @ -See above X-rays interpreted by me (1pt min.). @ -Chest x-ray is nonacute CT interpreted by me (1pt min.). @ -None done U/S interpreted by me (1pt. min.). @ -None done What testing was considered but not performed or refused? (CT, X-rays, U/S, labs)? Why? @ -None What meds were considered but not given or refused? Why? @ -None Was smoking cessation discussed for >3mins.? @ -No Were there social determinants of health that impacted care today? How? (Homelessness, low income, unemployed, alcoholism, drug addiction, transportation, low edu. Level, literacy, decrease access to med. care, retirement, rehab)? @ -No Was there de-escalation of care discussed even if they declined (Discuss DNR or withdrawal of care, Hospice)? DNR status @ -No What co-morbidities impacted this encounter? (DM, HTN, Smoking, COPD, CAD, Cancer, CVA, ARF, Chemo, Hep., AIDS, mental health diagnosis, sleep apnea, morbid obesity)? @ -Diabetes, hypertension Was patient admitted / discharged? Hospital course, mention meds given and route, prescriptions, significant lab abnormalities, going to OR and other pertinent info. @ -64-year-old male presents with a. Typical chest pain typical features. Vital signs upon arrival are within acceptable limits. EKG is unremarkable. Laboratory evaluation is obtained. D-dimer is age-adjusted normal. Rest of labs within acceptable limits. Patient has high risk features will be admitted observation consultation to cardiology. Did you discuss the management of the patient with other professionals (professionals i.e. , PA, SPORTS ADMINISTRATOR, lab, RT, psych nurse, social worker palliative care, industrial hygienist, teacher, chief green officer, case management assistant)? Give summary @ -Case discussed with Dr. Lazo for admission Was critical care preformed (if so, how long)? @ -No Undiagnosed new problem with uncertain prognosis? @ -No Drug Therapy requiring intensive monitoring for toxicity (Heparin, Nitro, Insulin, Cardizem)? @ -No Were any procedures done? @ -No Diagnosis/symptom? Acute, or Chronic, or Acute on Chronic? Uncomplicated (without systemic symptoms) or Complicated (systemic symptoms)? @ -Atypical chest pain with typical features Side effects of treatment? @ -No Exacerbation, Progression, or Severe Exacerbation? @ -No Poses a threat to life or bodily function? How? (Chest pain, [place], HI, pneumonia, PE, COPD, DKA, ARF, appy, cholecystitis, CVA, Diverticulitis, Homicidal, Suicidal, threat to staff... and all critical care pts) @ -yes - Lab Data Result diagrams: 05/28/24 12:57 05/28/24 12:57 Lab Results 05/28/24 05/28/24 05/28/24 Range/Units 12:57 12:57 12:57 WBC 6.9 (3.8-10.6) k/uL RBC 5.02 (4.30-5.90) m/uL Hgb 15.9 (13.0-17.5) gm/dL Hct 47.4 (39.0-53.0) % MCV 94.6 (80.0-100.0) fL MCH 31.8 (25.0-35.0) pg MCHC 33.6 (31.0-37.0) g/dL RDW 13.5 (11.5-15.5) % Plt Count 306 (150-450) k/uL MPV 7.1 Neutrophils % 62 % Lymphocytes % 24 % Monocytes % 6 % Eosinophils % 6 % Basophils % 0 % Neutrophils # 4.3 (1.3-7.7) k/uL Lymphocytes # 1.6 (1.0-4.8) k/uL Monocytes # 0.4 (0-1.0) k/uL Eosinophils # 0.4 (0-0.7) k/uL Basophils # 0.0 (0-0.2) k/uL PT 10.0 (10.0-12.5) sec INR 0.9 (<1.2) APTT 24.3 (22.0-30.0) sec D-Dimer 0.61 H (<0.60) mg/L FEU Sodium 138 (137-145) mmol/L Potassium 4.5 (3.5-5.1) mmol/L Chloride 109 H (98-107) mmol/L Carbon Dioxide 25 (22-30) mmol/L Anion Gap 4 mmol/L BUN 18 (9-20) mg/dL Creatinine 0.67 (0.66-1.25) mg/dL Est GFR (CKD-EPI)AfAm >90 (>60 ml/min/1.73 sqM) Est GFR (CKD-EPI)NonAf >90 (>60 ml/min/1.73 sqM) Glucose 123 H (74-99) mg/dL Calcium 9.0 (8.4-10.2) mg/dL Magnesium 1.9 (1.6-2.3) mg/dL Total Bilirubin 0.7 (0.2-1.3) mg/dL AST 19 (17-59) U/L ALT 13 (4-49) U/L Alkaline Phosphatase 62 (38-126) U/L Troponin I (0.000-0.034) ng/mL NT-Pro-B Natriuret Pep <20 pg/mL Total Protein 6.7 (6.3-8.2) g/dL Albumin 4.1 (3.5-5.0) g/dL 05/28/24 Range/Units 12:57 WBC (3.8-10.6) k/uL RBC (4.30-5.90) m/uL Hgb (13.0-17.5) gm/dL Hct (39.0-53.0) % MCV (80.0-100.0) fL MCH (25.0-35.0) pg MCHC (31.0-37.0) g/dL RDW (11.5-15.5) % Plt Count (150-450) k/uL MPV Neutrophils % % Lymphocytes % % Monocytes % % Eosinophils % % Basophils % % Neutrophils # (1.3-7.7) k/uL Lymphocytes # (1.0-4.8) k/uL Monocytes # (0-1.0) k/uL Eosinophils # (0-0.7) k/uL Basophils # (0-0.2) k/uL PT (10.0-12.5) sec INR (<1.2) APTT (22.0-30.0) sec D-Dimer (<0.60) mg/L FEU Sodium (137-145) mmol/L Potassium (3.5-5.1) mmol/L Chloride (98-107) mmol/L Carbon Dioxide (22-30) mmol/L Anion Gap mmol/L BUN (9-20) mg/dL Creatinine (0.66-1.25) mg/dL Est GFR (CKD-EPI)AfAm (>60 ml/min/1.73 sqM) Est GFR (CKD-EPI)NonAf (>60 ml/min/1.73 sqM) Glucose (74-99) mg/dL Calcium (8.4-10.2) mg/dL Magnesium (1.6-2.3) mg/dL Total Bilirubin (0.2-1.3) mg/dL AST (17-59) U/L ALT (4-49) U/L Alkaline Phosphatase (38-126) U/L Troponin I <0.012 (0.000-0.034) ng/mL NT-Pro-B Natriuret Pep pg/mL Total Protein (6.3-8.2) g/dL Albumin (3.5-5.0) g/dL Disposition Clinical Impression: Chest pain Disposition: ADMITTED IP TO THIS [facility] Condition: Fair Referrals: Marco Zamora [Primary Care Provider] - 1-2 days Decision Time: 14:52
[2024-05-28 13:03] LABS: Basophils % (A) 0 %; Eosinophils # (A) 0.4 k/uL (0-0.7); Eosinophils % (A) 6 %; HCT 47.4 % (39.0-53.0); HGB 15.9 gm/dL (13.0-17.5); Lymphocytes # (A) 1.6 k/uL (1.0-4.8); Lymphocytes % (A) 24 %; MCH 31.8 pg (25.0-35.0); MCHC 33.6 g/dL (31.0-37.0); MCV 94.6 fL (80.0-100.0); Mean Platelet Volume 7.1; Monocytes # (A) 0.4 k/uL (0-1.0); Monocytes % (A) 6 %; Neutrophils # (A) 4.3 k/uL (1.3-7.7); Neutrophils % (A) 62 %; Platelet Count 306 k/uL (150-450); RBC 5.02 m/uL (4.30-5.90); RDW 13.5 % (11.5-15.5); WBC 6.9 k/uL (3.8-10.6)
[2024-05-28 13:15] LABS: ALT 13 U/L (4-49); AST 19 U/L (17-59); African American GFR (CKD) >90 (>60 ml/min/1.73 sqM); Albumin 4.1 g/dL (3.5-5.0); Alkaline Phosphatase 62 U/L (38-126); Anion Gap 4 mmol/L; Blood Urea Nitrogen 18 mg/dL (9-20); Carbon Dioxide 25 mmol/L (22-30); Chloride 109 mmol/L (98-107); Glucose 123 mg/dL (74-99); Magnesium 1.9 mg/dL (1.6-2.3); Non-African American GFR(CKD) >90 (>60 ml/min/1.73 sqM); Potassium 4.5 mmol/L (3.5-5.1); Sodium 138 mmol/L (137-145); Total Bilirubin 0.7 mg/dL (0.2-1.3); Total Protein 6.7 g/dL (6.3-8.2)
[2024-05-28 13:16] LABS: INR 0.9 (<1.2); Partial Thromboplastin Time 24.3 sec (22.0-30.0)
[2024-05-28 13:24] LABS: NT-Pro-B-Type Natriuretic Pept <20 pg/mL
--- NOTE | 2024-05-28 13:47 | XR ---
EXAMINATION TYPE: XR chest 2V DATE OF EXAM: 05/28/2024 1:43 PM COMPARISON: Chest radiographs from 12/23/2023 TECHNIQUE: XR chest 2V Frontal and lateral views of the chest. CLINICAL INDICATION:Male, 64 years old with history of Chest Pain; FINDINGS: Lungs/Pleura: There is no evidence of pleural effusion, focal consolidation, or pneumothorax. Pulmonary vascularity: Unremarkable. Heart/mediastinum: Cardiomediastinal silhouette is unremarkable. Similar prominence of the pulmonary arteries which can be associated pulmonary arterial hypertension. Musculoskeletal: No acute osseous pathology. Mild multilevel degenerative changes visualized spine. B ilateral AC joint arthropathy with right greater than left. IMPRESSION: No acute cardiopulmonary disease/process. [facility], , 05/28/2024 1:45 PM
[2024-05-28] MEDS: ASPIRIN 81 MG PO STA (14:31)
[2024-05-28] MEDS ORDERED: NITROGLYCERIN SL TABS 0.4 MG TAB SUBLINGUAL PRN (14:49)
[2024-05-28] MEDS: IPRATROPIUM-ALBUTEROL 3 ML NEB INHALATION SCH (16:27)
[2024-05-28] MEDS: BUDESONIDE 1 MG/2 ML NEBU INHALATION SCH (19:53)
[2024-05-28] MEDS ORDERED: FLUTICASONE 110 MCG INHALER INHALATION SCH (20:00)
[2024-05-28] MEDS ORDERED: diphenhydrAMINE 25 MG CAP PO PRN (21:42)
[2024-05-28] MEDS ORDERED: DEXTROSE 50% SYRINGE 50 ML IVP PRN ×2 (21:49)
[2024-05-28] MEDS: diphenhydrAMINE 50 MG/ML 1 ML VIAL IVP STA (21:56)
--- NOTE | 2024-05-28 21:59 | P.HPIM ---
History of Present Illness H&P Date: 05/28/24 Chief Complaint: Chest pain Patient is a 64-year-old male with a past medical history of hypertension, hyperlipidemia, diabetes type 2 gvt-aygkusq-picbhruct, COPD on oxygen at 3 L via nasal cannula, osteoarthritis, prior history of smoking and morbid obesity with BMI 49.5 presents to ER with complaints of chest pain and exertional dyspnea.. Patient states that she has been having trouble breathing and winded more often for the past 3 days. She started having right-sided upper chest pain which worsens with moving to the left and moving his neck. Patient also felt benitez seated and lightheaded and sweaty along with shortness of breath. Pain lasted about few minutes and has been on and off. Also noticed that his feet are swollen sometimes. Patient states that he was seen by cardiology previously in the beginning of this month. Patient had underwent echocardiogram and stress test. Patient with with his fruit buying grader, Dr. Restrepo EKG on admission showed sinus rhythm with low QRS voltage in the precordial leads. Chest x-ray showed no acute cardiopulmonary process. Laboratory data showed WBC 6.9 hemoglobin 15.9 and platelets 306. D-dimer 0.61 Sodium 138 potassium 4.5 chloride 109 bicarb is 25 BUN 18 and creatinine 0.67 and blood sugar 123 lowering labs not elevated proBNP less than 20 and troponin x 3 negative. Review of Systems Constitutional: Patient denies any fever or chills . No generalized weakness or weight loss. Abdomen: Patient denied nausea vomiting and diarrhea and abdominal pain. Cardiovascular: Patient complains of chest painright upper exercise with short of breath no palpitations. No worsening leg swelling Respiratory: patient denied any cough or sputum production. No shortness of breath Neurologic: Patient denied any numbness or tingling. no headache. Musculoskeletal: Patient denies any complaints of joint swelling or deformity. Skin: Negative Psychiatric: Negative Endocrine: No heat or cold intolerance. No recent weight gain. Genitourinary: No dysuria or hematuria. All other 14 point ROS negative except the above Past Medical History Past Medical History: Asthma, COPD, Diabetes Mellitus, Hyperlipidemia, Hypertension, Osteoarthritis (OA) Additional Past Medical History / Comment(s): Persistent asthma, NIDDM II- arthritis R knee, COVID + History of Any Multi-Drug Resistant Organisms: None Reported Past Surgical History: Hernia Repair Additional Past Surgical History / Comment(s): Umbilical hernia repair Past Anesthesia/Blood Transfusion Reactions: Motion Sickness Past Psychological History: No Psychological Hx Reported Additional Psychological History / Comment(s): Pt resides in a home and his brother lives in the same building. He has a glucometer. He has a nebulizer. He drives. He has a pulsosimetor. 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 Smoking Status: Former smoker Past Alcohol Use History: None Reported Additional Past Alcohol Use History / Comment(s): Pt started smoking in 1976 and quit [id number] Past Drug Use History: None Reported Additional Drug Use History / Comment(s): Patient quit smoking about 40 years ago, after 4 years of use, no alcohol intake, has nebulizer. 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 Father History Unknown: Yes Family Medical History: GI Bleed Additional Family Medical History / Comment(s): Father around age 50 from a bleeding ulcer. Brother(s) Family Medical History: No Reported History Additional Family Medical History / Comment(s): The patient has 2 brothers and one from pneumonia at age 59, 1 is alive with history of bariatric surgery. Sister(s) Family Medical History: No Reported History Additional Family Medical History / Comment(s): Patient has 2 sisters and one has history of gallbladder disease. Daughter(s) Family Medical History: Unable to Obtain Additional Family Medical History / Comment(s): Patient has one daughter with no major medical problems. Son(s) Additional Family Medical History / Comment(s): Patient has 2 sons and one has hypertension. Medications and Allergies Home Medications Medication Instructions Recorded Confirmed Type Montelukast Sodium [Singulair] 10 mg PO DAILY 05/18/18 05/28/24 History Fluticasone Propionate [Flovent 2 puff INHALATION RT-BID 06/16/20 05/28/24 Hi story Hfa 220 mcg] Albuterol Inhaler [Ventolin Hfa 2 puff INHALATION RT-Q4H PRN 02/05/22 05/28/24 History Inhaler] Ipratropium-Albuterol Nebulize 3 ml INHALATION RT-QID 05/28/24 05/28/24 History [Duoneb 0.5 mg-3 mg/3 ml Soln] Magnesium (Unknown Strength) 1 dose PO DAILY 05/28/24 05/28/24 History [place]-3 Fish Oil (Unknown Strength) 1 dose PO DAILY 05/28/24 05/28/24 History Vitamin C (Unknown Strength) 1 dose PO DAILY 05/28/24 05/28/24 History Vitamin D3 (Unknown Strength) 1 dose PO DAILY 05/28/24 05/28/24 History Zinc (Unknown Strength) 1 dose PO DAILY 05/28/24 05/28/24 History lisinopriL [Zestril] 20 mg PO DAILY 05/28/24 05/28/24 History metFORMIN HCL ER [Glucophage XR] 500 mg PO DAILY 05/28/24 05/28/24 History Allergies Allergy/AdvReac Type Severity Reaction Status Date / Time adhesive Allergy Rash/Hives Verified 05/28/24 14:34 Fprnfac-NYH-VpY Reductase AdvReac MUSCLE PAIN Verified 05/28/24 14:34 Inhibitor [Fwjzqqc-Vbq-Efz Reductase Inhibitor] Physical Exam Vitals: Vital Signs Temp Pulse Pulse Resp BP BP Pulse Ox 05/28/24 16:36 77 05/28/24 16:31 96 05/28/24 16:28 76 05/28/24 16:00 98.4 F 77 18 138/83 99 05/28/24 15:11 98.4 F 81 18 133/86 98 05/28/24 14:26 79 22 125/83 99 05/28/24 12:14 97.2 F L 95 18 207/92 97 Intake and Output 05/28/24 05/28/24 05/28/24 06:59 14:59 22:59 Other: Voiding Method Toilet Weight 151.953 kg 151.953 kg PHYSICAL EXAMINATION: Patient is lying in the bed comfortably, no acute distress, awake alert and oriented. Morbidly obese. HEENT: Normocephalic. Neck is supple. Pupils reactive. Nostrils clear. Oral cavity is moist. Neck reveals no JVD, carotid bruits, or thyromegaly. CHEST EXAMINATION: Trachea is central. Symmetrical expansion. Bilateral expiratory wheezing. No rhonchi or crackles. Nonlabored breathing.. CARDIAC: Normal S1, S2 with no gallops. No murmurs ABDOMEN: Soft. Bowel sounds normal. No organomegaly. No abdominal bruits. Extremities: bilateral lower extremity trace edema. No clubbing or cyanosis Neurologically awake, alert, oriented x3 with well-coordinated movements. No focal deficits noted Skin: No rash or skin lesions. Psychiatric: Coperative. Nonsuicidal Musculoskeletal: No joint swelling or deformity. Normal range of motion. Results CBC & Chem 7: 05/28/24 12:57 05/28/24 12:57 Labs: Abnormal Lab Results - Last 24 Hours (Table) 05/28/24 05/28/24 Range/Units 12:57 12:57 D-Dimer 0.61 H (<0.60) mg/L FEU Chloride 109 H (98-107) mmol/L Glucose 123 H (74-99) mg/dL Thrombosis Risk Factor Assmnt - DVT/VTE Prophylaxis DVT/VTE Prophylaxis: Pharmacologic Prophylaxis ordered - Choose All That Apply Any of the Below Risk Factors Present?: Yes Each Factor Represents 1 point: Obesity (BMI >25) Other Risk Factors: Yes Each Risk Factor Represents 2 Points: Age 61-74 years Thrombosis Risk Factor Assessment Total Risk Factor Score: 3 Thrombosis Risk Factor Assessment Level: Moderate Risk Assessment and Plan Assessment: Atypical chest pain/right upper chest. Possible musculoskeletalworsens with movement of the left versus pleuritic. Rule out ACS COPD on home oxygen at 3 L via nasal cannula. Diabetes type 2 tis-xxyhzlu-qrhrufwvf Hypertension Hyperlipidemia Osteoarthritis Prior history of smoking Morbid obesity BMI 49.5 GI and DVT prophylaxis with PPI and heparin subcu Plan: Patient will be continued on telemonitoring. Continue with oxygen supplementation and DuoNebs and Pulmicort inhalation. Serial EKG and troponin x 3 negative. D-dimer is 0.61. Patient denied any unilateral leg swelling. proBNP is not elevated. Cardiology was consulted for evaluation. Insulin sliding scale for blood sugar control.. Continue with home medications and follow-up closely. Time with Patient: Greater than 30
[2024-05-28] MEDS: guaiFENesin 600 MG TABLET.ER PO SCH (22:52)
[2024-05-29] MEDS: HEPARIN SODIUM,PORCINE 5,000 UNIT/ML 1 ML VIAL SQ SCH (00:48)
[2024-05-29 05:52] LABS: Glucose,Whole Blood 133 mg/dL (70-110)
[2024-05-29] MEDS: INSULIN ASPART (NovoLOG) 100 UNIT/ML VIAL SQ SCH (06:35)
[2024-05-29 08:33] VITALS: RESP 16
[2024-05-29 08:55] LABS: Chol/HDL Ratio 4.65 Ratio; LDL Cholesterol,Calculated 110.1 mg/dL (0.0-131.0)
[2024-05-29] MEDS: ASPIRIN 325 MG TAB PO SCH (09:04)
[2024-05-29] MEDS: MONTELUKAST 10 MG TAB PO SCH (09:04)
[2024-05-29] MEDS: lisinopriL 20 MG TAB PO SCH (09:11)
[2024-05-29] MEDS: ALBUTEROL NEBULIZED 2.5 MG/3 ML INHALATION SCH (11:46)
[2024-05-29 12:52] LABS: Glucose,Whole Blood 136 mg/dL (70-110)
--- NOTE | 2024-05-29 14:23 | P.CRDCN ---
History of Present Illness Consult date: 05/29/24 History of present illness: Dr. Cano addendum Atypical chest pain Dyspnea on exertion Essential hypertension Type 2 diabetes Morbid obesity At this time patient has been rule out of acute coronary syndrome. There are no signs of ischemic changes on ECG with BNP negative and troponin negative it is less likely that patient has congestive heart failure. On physical examination he appears euvolemic as well. I would add aspirin 81 mg, Lipitor 20 mg and metoprolol succinate 25 mg daily for medical management. I would recommend outpatient sleep study I recommend outpatient follow-up with Dr. Del Toro. Patient is cleared to be discharged home cardiovascular standpoint Patient is a 64 year old with past medical history of hypertension, hyperlipidemia, type 2 diabetes, osteoarthritis, smoking history, obesity, and COPD on O2 at 3L presented to the ED with shortness of breath, chest pain, and exertional dyspnea. Patient reported he started having trouble breathing and become short winded for the past 3 days. He also felt nauseated and diaphoretic when he had those episodes. Those symptoms would last a few minutes and then would go away. He also has noticed bilateral feet and leg swelling over the past few months. He had an echocardiogram done back in 2022, and EF was found to be at 55-60%. Upon arrival to the ED, patient's EKG showed sinus rhythm with low QRS voltage in precordial leads. Chest X ray was clear. He denies any smoking history, alcohol, or drug use. D Dimer was 0.61. Troponin less than 0.012. BNP less than 20. His CBC showed a WBC of 6.9, hemoglobin 15.9, hematocrit 47.4, platelet 306. CMP showed sodium 138, potassium 4.5, BUN 18, creatinine 0.67. Review of Systems Per HPI Past Medical History Past Medical History: Asthma, COPD, Diabetes Mellitus, Hyperlipidemia, Hypertension, Osteoarthritis (OA) Additional Past Medical History / Comment(s): Persistent asthma, NIDDM II- arthritis R knee, COVID + History of Any Multi-Drug Resistant Organisms: None Reported Past Surgical History: Hernia Repair Additional Past Surgical History / Comment(s): Umbilical hernia repair Past Anesthesia/Blood Transfusion Reactions: Motion Sickness Past Psychological History: No Psychological Hx Reported Additional Psychological History / Comment(s): Pt resides in a home and his brother lives in the same building. He has a glucometer. He has a nebulizer. He drives. He has a pulsosimetor. 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 Smoking Status: Former smoker Past Alcohol Use History: None Reported Additional Past Alcohol Use History / Comment(s): Pt started smoking in 1976 and quit [id number] Past Drug Use History: None Reported Additional Drug Use History / Comment(s): Patient quit smoking about 40 years ago, after 4 years of use, no alcohol intake, has nebulizer. 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 Father History Unknown: Yes Family Medical History: GI Bleed Additional Family Medical History / Comment(s): Father around age 50 from a bleeding ulcer. Brother(s) Family Medical History: No Reported History Additional Family Medical History / Comment(s): The patient has 2 brothers and one from pneumonia at age 59, 1 is alive with history of bariatric surgery. Sister(s) Family Medical History: No Reported History Additional Family Medical History / Comment(s): Patient has 2 sisters and one has history of gallbladder disease. Daughter(s) Family Medical History: Unable to Obtain Additional Family Medical History / Comment(s): Patient has one daughter with no major medical problems. Son(s) Additional Family Medical History / Comment(s): Patient has 2 sons and one has hypertension. Medications and Allergies Home Medications Medication Instructions Recorded Confirmed Type Montelukast Sodium [Singulair] 10 mg PO DAILY 05/18/18 05/28/24 History Fluticasone Propionate [Flovent 2 puff INHALATION RT-BID 06/16/20 05/28/24 History Hfa 220 mcg] Albuterol Inhaler [Ventolin Hfa 2 puff INHALATION RT-Q4H PRN 02/05/22 05/28/24 History Inhaler] Ipratropium-Albuterol Nebulize 3 ml INHALATION RT-QID 05/28/24 05/28/24 History [Duoneb 0.5 mg-3 mg/3 ml Soln] Magnesium (Unknown Strength) 1 dose PO DAILY 05/28/24 05/28/24 History [place]-3 Fish Oil (Unknown Strength) 1 dose PO DAILY 05/28/24 05/28/24 History Vitamin C (Unknown Strength) 1 dose PO DAILY 05/28/24 05/28/24 History Vitamin D3 (Unknown Strength) 1 dose PO DAILY 05/28/24 05/28/24 History Zinc (Unknown Strength) 1 dose PO DAILY 05/28/24 05/28/24 History lisinopriL [Zestril] 20 mg PO DAILY 05/28/24 05/28/24 History metFORMIN HCL ER [Glucophage XR] 500 mg PO DAILY 05/28/24 05/28/24 History Aspirin 81 mg PO DAILY #30 tab 05/29/24 Rx Atorvastatin [Lipitor] 20 mg PO DAILY #30 tablet 05/29/24 Rx Metoprolol Succinate [Metoprolol 25 mg PO DAILY 30 Days #30 tab 05/29/24 Rx Succinate ER] guaiFENesin [Mucinex] 600 mg PO Q12HR #20 tab 05/29/24 Rx Allergies Allergy/AdvReac Type Severity Reaction Status Date / Time adhesive Allergy Rash/Hives Verified 05/28/24 14:34 Kgtrpsc-IRM-TpA Reductase AdvReac MUSCLE PAIN Verified 05/28/24 14:34 Inhibitor [Xfvogkx-Xsq-Pbh Reductase Inhibitor] Physical Exam Vitals: Vital Signs Temp Pulse Pulse Resp BP BP Pulse Ox 05/29/24 11:57 78 05/29/24 11:46 77 05/29/24 07:00 97.8 F 73 16 147/89 99 05/29/24 02:00 98.2 F 78 18 117/73 99 05/28/24 20:04 80 05/28/24 20:00 98.0 F 92 20 114/75 98 05/28/24 19:54 77 05/28/24 16:36 77 05/28/24 16:31 96 05/28/24 16:28 76 05/28/24 16:00 98.4 F 77 18 138/83 99 05/28/24 15:11 98.4 F 81 18 133/86 98 05/28/24 14:26 79 22 125/83 99 Intake and Output 05/28/24 05/29/24 05/29/24 22:59 06:59 14:59 Intake Total 560 0 Output Total 200 Balance 360 0 Intake: Oral 560 0 Output: Urine 200 Other: Voiding Method Toilet Toilet # Voids 3 2 Weight 151.953 kg General: Alert and oriented, not in acute distress Cardiovascular: Regular heart rate, no murmurs Respiratory: Clear to auscultation bilaterally, no wheezing/rhonchi/stridor Abdominal: Soft, nondistended, nontender to palpation Extremity: No LE edema Results 05/28/24 12:57 05/28/24 12:57 Cardiac Enzymes 05/28/24 05/28/24 Range/Units 15:19 19:35 Troponin I <0.012 <0.012 (0.000-0.034) ng/mL Lipids 05/28/24 Range/Units 12:57 Triglycerides 199.00 H (0.00-149.00) mg/dL Cholesterol 191.00 (0.00-200.00) mg/dL HDL Cholesterol 41.10 (40.00-60.00) mg/dL Cholesterol/HDL Ratio 4.65 Ratio Current Medications Generic Name Dose Route Start Last Admin Trade Name Freq PRN Reason Stop Dose Admin Albuterol Sulfate 2.5 mg 05/29/24 12:00 05/29/24 11:46 Albuterol Nebulized 2.5 Mg/3 Ml INHALATION 2.5 mg RT-QID INGRID Administration Aspirin 325 mg 05/29/24 09:00 05/29/24 09:04 Aspirin 325 Mg Tab PO 325 mg DAILY INGRID Administration Dextrose/Water 25 ml 05/28/24 21:49 Dextrose 50% Syringe 50 Ml IVP PER PROTOCOL PRN Hypoglycemia Protocol Dextrose/Water 50 ml 05/28/24 21:49 Dextrose 50% Syringe 50 Ml IVP PER PROTOCOL PRN Hypoglycemia Protocol Diphenhydramine HCl 25 mg 05/28/24 21:42 Diphenhydramine 25 Mg Cap PO Q6H PRN Allergic Reaction Guaifenesin 600 mg 05/28/24 21:45 05/29/24 09:04 Guaifenesin 600 Mg Tablet.Er PO 600 mg Q12HR INGRID Administration Heparin Sodium (Porcine) 5,000 unit 05/29/24 00:00 05/29/24 09:04 Heparin Sodium,Porcine 5,000 Unit/Ml 1 Ml Vial SQ 5,000 unit Q8HR INGRID Administration Insulin Aspart 0 unit 05/29/24 07:30 05/29/24 13:15 Insulin Aspart (Novolog) 100 Unit/Ml Vial SQ Not Given ACHS INGRID Protocol Lisinopril 20 mg 05/29/24 09:00 05/29/24 09:11 Lisinopril 20 Mg Tab PO Not Given DAILY INGRID Montelukast Sodium 10 mg 05/29/24 09:00 05/29/24 09:04 Montelukast 10 Mg Tab PO 10 mg DAILY INGRID Administration Nitroglycerin 0.4 mg 05/28/24 14:49 Nitroglycerin Sl Tabs 0.4 Mg Tab SUBLINGUAL Q5M PRN Chest Pain Intake and Output 05/28/24 05/29/24 05/29/24 22:59 06:59 14:59 Intake Total 560 0 Output Total 200 Balance 360 0 Intake: Oral 560 0 Output: Urine 200 Other: Voiding Method Toilet Toilet # Voids 3 2 Weight 151.953 kg 05/28/24 12:57 05/28/24 12:57 Assessment and Plan Assessment: 1. Congestive heart failure - Less likely as patient EF was 55-60% a year ago. - BNP les than 20 - troponin < 0.012 - Add lipitor 20mg once daily, 25 mg metoprolol succinate ER once daily, 81 mg aspirin daily to home medications - Recommended outpatient sleep study to investigate obstructive sleep apnea - Patient stable to be discharged home - Outpatient follow up with Dr. Del Toro Time with Patient: Greater than 30
[2024-05-29 15:03] LABS: Glucose,Whole Blood 136 mg/dL (70-110)
[2024-05-29 16:43] VITALS: BP 137/81; PULSE 87; TEMP 98.1
--- NOTE | 2024-06-02 10:39 | P.DS ---
Providers Date of admission: 05/28/24 14:49 Expected date of discharge: 05/29/24 Attending physician: Emerson Lazo Consults: 05/28/24 14:49 Consult Physician Urgent Consulting Provider: Rio Del Toro Consult Reason/Comments: chest pain Do you want consulting provider notified?: Yes Primary care physician: Marco Zamora Hospital Course: Final diagnosis Atypical chest pain/right upper chest. Most likely musculoskeletalworsens with movement of the left versus pleuritic. Ruled out ACS per cardiology COPD on home oxygen at 3 L via nasal cannula. Diabetes type 2 [id number] Hypertension Hyperlipidemia Osteoarthritis Prior history of smoking Morbid obesity BMI 49.5 GI and DVT prophylaxis with PPI and heparin subcu Full code Discharge disposition Patient is being discharged in a stable condition with guarded prognosis to home. Patient will follow-up with Dr. Zamora in the outpatient setting upon discharge. Patient is to continue with current medications per cardiology and outpatient follow-up with cardiology in 1 week as scheduled. Total time taken is greater than 35 minutes. Hospital course This is a 64-year-old male who was recently admitted with chest pain atypical in the right upper chest being evaluated by cardiology. ACS ruled out and most likely musculoskeletal. 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 Medications adjusted per cardiology and recommending outpatient follow-up in 1 to 2 weeks for further evaluation. Patient has been cleared by cardiology and patient reports to feeling well and would like to go home. Please refer to cardiology note for further HPI. Currently no reports of chest pain, shortness of breath, or palpitations. Patient is afebrile. No reports of nausea or vomiting and patient is tolerating diet. Patient will be discharged home. Guarded prognosis with significant comorbidities. Physical exam: Gen: This is a 64-year-old male who is awake, alert and oriented x 3, well- developed, well-nourished, morbidly obese HEENT: Head is atraumatic, normocephalic. Pupils equal, round. Sclerae is anicteric. NECK: Supple. No JVD. No lymphadenopathy. No thyromegaly. LUNGS: Diminished breath sounds bilaterally with a few scattered rhonchi. No intercostal retractions. HEART: S1, S2 are muffled ABDOMEN: Soft. Obese bowel sounds are present. No masses. No tenderness. EXTREMITIES: No pedal edema. No calf tenderness. NEUROLOGICAL: Patient is awake, alert and oriented x3. Cranial nerves 2 through 12 are grossly intact. Please refer to medication reconciliation sheet for a list of medications. The impression and plan of care has been dictated by Ruthie Victoria, Nurse Practitioner as directed. Dr. Clifton MD I have performed a history and examination and MDM of this patient, discussed the same with the dictator, and agree with the dictator's assessment and plan as written ,documented as a scribe. Based on total visit time, I have performed more than 50% of the visit. Patient Condition at Discharge: Fair Plan - Discharge Summary Discharge Rx Participant: No New Discharge Prescriptions: New Atorvastatin [Lipitor] 20 mg PO DAILY #30 tablet Metoprolol Succinate [Metoprolol Succinate ER] 25 mg PO DAILY 30 Days #30 tab guaiFENesin [Mucinex] 600 mg PO Q12HR #20 tab Aspirin 81 mg PO DAILY #30 tab Continue Montelukast Sodium [Singulair] 10 mg PO DAILY Fluticasone Propionate [Flovent Hfa 220 mcg] 2 puff INHALATION RT-BID Albuterol Inhaler [Ventolin Hfa Inhaler] 2 puff INHALATION RT-Q4H PRN PRN Reason: Shortness Of Breath [place]-3 Fish Oil (Unknown Strength) 1 dose PO DAILY metFORMIN HCL ER [Glucophage XR] 500 mg PO DAILY Ipratropium-Albuterol Nebulize [Duoneb 0.5 mg-3 mg/3 ml Soln] 3 ml INHALATION RT-QID lisinopriL [Zestril] 20 mg PO DAILY Magnesium (Unknown Strength) 1 dose PO DAILY Vitamin C (Unknown Strength) 1 dose PO DAILY Vitamin D3 (Unknown Strength) 1 dose PO DAILY Zinc (Unknown Strength) 1 dose PO DAILY Discharge Medication List Montelukast Sodium [Singulair] 10 mg PO DAILY 05/18/18 [History] Fluticasone Propionate [Flovent Hfa 220 mcg] 2 puff INHALATION RT-BID 06/16/20 [History] Albuterol Inhaler [Ventolin Hfa Inhaler] 2 puff INHALATION RT-Q4H PRN 02/05/22 [History] Ipratropium-Albuterol Nebulize [Duoneb 0.5 mg-3 mg/3 ml Soln] 3 ml INHALATION RT-QID 05/28/24 [History] Magnesium (Unknown Strength) 1 dose PO DAILY 05/28/24 [History] [place]-3 Fish Oil (Unknown Strength) 1 dose PO DAILY 05/28/24 [History] Vitamin C (Unknown Strength) 1 dose PO DAILY 05/28/24 [History] Vitamin D3 (Unknown Strength) 1 dose PO DAILY 05/28/24 [History] Zinc (Unknown Strength) 1 dose PO DAILY 05/28/24 [History] lisinopriL [Zestril] 20 mg PO DAILY 05/28/24 [History] metFORMIN HCL ER [Glucophage XR] 500 mg PO DAILY 05/28/24 [History] Aspirin 81 mg PO DAILY #30 tab 05/29/24 [Rx] Atorvastatin [Lipitor] 20 mg PO DAILY #30 tablet 05/29/24 [Rx] Metoprolol Succinate [Metoprolol Succinate ER] 25 mg PO DAILY 30 Days #30 tab 05/29/24 [Rx] guaiFENesin [Mucinex] 600 mg PO Q12HR #20 tab 05/29/24 [Rx] Follow up Appointment(s)/Referral(s): Rio Del Toro DO [STAFF PHYSICIAN] - 06/05/24 8:45 am Marco Zamora [Primary Care Provider] - 1-2 days Activity/Diet/Wound Care/Special Instructions: Very limited until follow-up Follow-up with primary care provider on discharge Follow-up with cardiology outpatient Kidney taking medications as prescribed Continue heart healthy diabetic diet Discharge Disposition: HOME SELF-CARE
== END 2024-05-29 15:11 | disposition home or self-care (01) ==
LOC: EC 12:11 → 6NMEDSUR 14:49
PROVIDERS: ADMIT Internal Medicine; ATTEND Internal Medicine
DX: R07.89 Other chest pain (principal); J44.89 Other specified chronic obstructive pulmonary disease; E11.9 Type 2 diabetes mellitus without complications; I10 Essential (primary) hypertension; E78.5 Hyperlipidemia, unspecified; R11.0 Nausea; R42 Dizziness and giddiness; M54.2 Cervicalgia; M17.11 Unilateral primary osteoarthritis, right knee; R61 Generalized hyperhidrosis; R22.43 Localized swelling, mass and lump, lower limb, bilateral; E66.01 Morbid (severe) obesity due to excess calories; Z68.42 Body mass index [BMI] 45.0-49.9, adult; Z99.81 Dependence on supplemental oxygen; Z79.51 Long term (current) use of inhaled steroids; Z79.84 Long term (current) use of oral hypoglycemic drugs; Z79.899 Other long term (current) drug therapy; Z88.8 Allergy status to other drugs, medicaments and biological substances; Z91.048 Other nonmedicinal substance allergy status; Z87.891 Personal history of nicotine dependence
CPT/HCPCS: 96372; 96374; 99285; 36415; 94640 ×3; 94760; 93005; 85379; 83880; 80061; 80053; 83735; 84484; 85025; 85610; 85730; 83036; 71046; G0378 ×2; J1200; J1644

== ENCOUNTER 2024-06-25 16:02 | Observation (INO) | payer BC ==
--- NOTE | 2024-06-25 16:36 | ED ---
General Adult HPI - General Chief complaint: Chest Pain Stated complaint: chest pain, SOB Time Seen by Provider: 06/25/24 16:08 Source: patient Mode of arrival: wheelchair Limitations: no limitations - History of Present Illness Initial comments: Patient is a 64-year-old male with past medical history of asthma, chronically on 3 L oxygen nasal cannula diabetes presenting today for chest tightness and shortness of breath. Started yesterday. Noticed lightheadedness this morning and chest tightness with ambulation. Worse with coughing. Patient did develop a sore throat yesterday which went away last night but has returned this morning. No nasal congestion. No lower extremity swelling. Non-smoker. Cough nonproductive of sputum or hemoptysis. No history of blood clots. No sick contacts. States recently admitted for chest pain . Followed up with Dr. Del Toro about 2 weeks ago and states "everything was fine". Had a stress test done in the last 6 weeks states she was told was normal. No history CAD. No family history of CAD or CVA. - Related Data Home Medications Medication Instructions Recorded Confirmed Montelukast Sodium [Singulair] 10 mg PO DAILY 05/18/18 05/28/24 Fluticasone Propionate [Flovent 2 puff INHALATION RT-BID 06/16/20 05/28/24 Hfa 220 mcg] Albuterol Inhaler [Ventolin Hfa 2 puff INHALATION RT-Q4H PRN 02/05/22 05/28/24 Inhaler] Ipratropium-Albuterol Nebulize 3 ml INHALATION RT-QID 05/28/24 05/28/24 [Duoneb 0.5 mg-3 mg/3 ml Soln] Magnesium (Unknown Strength) 1 dose PO DAILY 05/28/24 05/28/24 [place]-3 Fish Oil (Unknown Strength) 1 dose PO DAILY 05/28/24 05/28/24 Vitamin C (Unknown Strength) 1 dose PO DAILY 05/28/24 05/28/24 Vitamin D3 (Unknown Strength) 1 dose PO DAILY 05/28/24 05/28/24 Zinc (Unknown Strength) 1 dose PO DAILY 05/28/24 05/28/24 lisinopriL [Zestril] 20 mg PO DAILY 05/28/24 05/28/24 metFORMIN HCL ER [Glucophage XR] 500 mg PO DAILY 05/28/24 05/28/24 Previous Rx's Medication Instructions Recorded Aspirin 81 mg PO DAILY #30 tab 05/29/24 Atorvastatin [Lipitor] 20 mg PO DAILY #30 tablet 05/29/24 Metoprolol Succinate [Metoprolol 25 mg PO DAILY 30 Days #30 tab 05/29/24 Succinate ER] guaiFENesin [Mucinex] 600 mg PO Q12HR #20 tab 05/29/24 Allergies Allergy/AdvReac Type Severity Reaction Status Date / Time adhesive Allergy Rash/Hives Verified 06/25/24 16:04 Xmcyocl-IDT-KoK Reductase AdvReac MUSCLE PAIN Verified 06/25/24 16:04 Inhibitor [Xdzgkcv-Jmk-Cqh Reductase Inhibitor] Review of Systems ROS Statement: Those systems with pertinent positive or pertinent negative responses have been documented in the HPI. ROS Other: All systems not noted in ROS Statement are negative. Past Medical History Past Medical History: Asthma, COPD, Diabetes Mellitus, Hyperlipidemia, Hypertension, Osteoarthritis (OA) Additional Past Medical History / Comment(s): Persistent asthma, NIDDM II- arthritis R knee, COVID + History of Any Multi-Drug Resistant Organisms: None Reported Past Surgical History: Hernia Repair Additional Past Surgical History / Comment(s): Umbilical hernia repair Past Anesthesia/Blood Transfusion Reactions: Motion Sickness Past Psychological History: No Psychological Hx Reported Smoking Status: Former smoker Past Alcohol Use History: None Reported Past Drug Use History: None Reported - Past Family History Mother History Unknown: Yes Family Medical History: Cancer Additional Family Medical History / Comment(s): Mother of ovarian cancer at the age of 78yrs. Father History Unknown: Yes Family Medical History: GI Bleed Additional Family Medical History / Comment(s): Father around age 50 from a bleeding ulcer. Brother(s) Family Medical History: No Reported History Additional Family Medical History / Comment(s): The patient has 2 brothers and one from pneumonia at age 59, 1 is alive with history of bariatric surgery. Sister(s) Family Medical History: No Reported History Additional Family Medical History / Comment(s): Patient has 2 sisters and one has history of gallbladder disease. Daughter(s) Family Medical History: Unable to Obtain Additional Family Medical History / Comment(s): Patient has one daughter with no major medical problems. Son(s) Additional Family Medical History / Comment(s): Patient has 2 sons and one has hypertension. General Exam - General Exam Comments Initial Comments: PE: CONSTITUTIONAL: No apparent distress, chronically ill-appearing SKIN: Warm, dry, no jaundice, hives or petechiae EYES: Pupils are equally round, extraocular movements intact without nystagmus, clear conjunctiva, non-icteric sclera HENT: Normocephalic, atraumatic, moist mucus membranes, oropharynx clear without exudates NECK: , Full range of motion, normal appearance PULMONARY: Wheezes throughout all lung babb, scant rhonchi in bilateral bases, no rales or crackles, normal excursion, no tachypnea, no stridor, no accessory muscle use CARDIOVASCULAR: Regular rate, rhythm, normal S1 and S2. No appreciated murmurs, rubs or gallops. Strong radial pulses with intact distal perfusion. No lower extremity edema GASTROINTESTINAL: Soft, active bowel sounds throughout, non-tender, non- distended, no palpable masses, no rebound or guarding. No hepatosplenomegaly GENITOURINARY: MUSCULOSKELETAL: Extremities have no gross deformity, no edema, redness, or swelling. No calf swelling NEUROLOGIC:_a/o x 3, GCS 15, normal mentation and speech. Moves all extremities x 4 without motor or sensory deficit PSYCHIATRIC:_normal mood and affect, thought process is clear and linear Limitations: no limitations Course Vital Signs 06/25/24 06/25/24 06/25/24 16:04 16:16 16:30 Temperature 98.3 F Pulse Rate 101 H 97 Respiratory 20 18 18 Rate Blood Pressure 129/71 O2 Sat by Pulse 97 Oximetry 06/25/24 06/25/24 06/25/24 16:38 16:49 17:00 Temperature Pulse Rate 103 H 100 104 H Respiratory 21 Rate Blood Pressure 168/92 O2 Sat by Pulse 95 Oximetry 06/25/24 06/25/24 06/25/24 18:00 19:00 19:21 Temperature Pulse Rate 92 93 91 Respiratory 18 18 Rate Blood Pressure 168/92 O2 Sat by Pulse 95 93 L Oximetry 06/25/24 06/25/24 06/25/24 19:36 20:00 22:00 Temperature Pulse Rate 99 100 98 Respiratory 22 22 Rate Blood Pressure 137/84 O2 Sat by Pulse 91 L 95 Oximetry 06/26/24 00:30 Temperature 97.6 F Pulse Rate 110 H Respiratory 20 Rate Blood Pressure 103/61 O2 Sat by Pulse 97 Oximetry EKG Findings - EKG Comments: EKG Findings:: Sinus rhythm, rate 95 bpm, WI interval 178 ms, QRS duration 111 ms, QT/QTc 347/400 ms, normal axis, artifact present however no notable ST elevations or depressions, no arrhythmia, Compared to EKG performed on 05/29/24, no significant changes from prior Medical Decision Making - Medical Decision Making Was pt. sent in by a medical professional or institution (, PA, PHYSICIAN CODER, urgent care, hospital, or retirement...) When possible be specific @ -No Did you speak to anyone other than the patient for history (EMS, parent, family, police, friend...)? What history was obtained from this source @ -No Did you review nursing and triage notes (agree or disagree)? Why? @ -I reviewed and agree with nursing and triage notes Were old charts reviewed (outside hosp., previous admission, EMS record, old EKG, old radiological studies, urgent care reports/EKG's, retirement records)? Report findings @ -Medical records reviewed, reviewed EKG performed 05/29/2024 and can compared to today's, rreviewed ED visit on 05/28/2024 when patient had presented for right chest sided chest pain. D-dimer at that time age-adjusted was normal, EKG was unremarkable, labs patient was ultimately admitted for observation Differential Diagnosis (chest pain, altered mental status, abdominal pain women, abdominal pain men, vaginal bleeding, weakness, fever, dyspnea, syncope, headache, dizziness, GI bleed, back pain, seizure, CVA, palpatations, mental health, musculoskeletal)? @Differential Dyspnea: Coronary syndrome, arrhythmia, tamponade, asthma, COPD, pulmonary embolism, pneumonia, pneumothorax, pulmonary effusion, anaphylaxis, diabetic ketoacidosis, flailed chest, pulmonary contusion, diaphragmatic rupture, anemia, neuromuscular, this is not meant to be an all-inclusive list. EKG interpreted by me (3pts min.). @ -As above X-rays interpreted by me (1pt min.). @ No consolidations, no cardiomegaly or pleural effusions CT interpreted by me (1pt min.). @ -None done U/S interpreted by me (1pt. min.). @ -None done What testing was considered but not performed or refused? (CT, X-rays, U/S, labs)? Why? @ -None What meds were considered but not given or refused? Why? @ -None Did you discuss the management of the patient with other professionals (prof daly i.e. , PA, PHYSICIAN CODER, lab, RT, psych nurse, social media marketing analyst, tower switch operator, teacher, v/stol landing signal officer, case supervisor)? Give summary @ -No Was smoking cessation discussed for >3mins.? @ -No Was critical care preformed (if so, how long)? @Yes, 35 minutes Were there social determinants of health that impacted care today? How? (Homelessness, low income, unemployed, alcoholism, drug addiction, transportation, low edu. Level, literacy, decrease access to med. care, prison, rehab)? @ -No Was there de-escalation of care discussed even if they declined (Discuss DNR or withdrawal of care, Hospice)? @ -No What co-morbidities impacted this encounter? (DM, HTN, Smoking, COPD, CAD, Cancer, CVA, ARF, Chemo, Hep., AIDS, mental health diagnosis, sleep apnea, morbid obesity)? @Asthma, diabetes Was patient admitted / discharged? Hospital course, mention meds given and route, prescriptions, significant lab abnormalities, going to OR and other pertinent info. @Admission- This is a pleasant 64-year-old gentleman history of asthma, diabetes presenting today for chest tightness and shortness of breath that started approximate yesterday. Associated lightheadedness. Myself and patient is ill-appearing but in no acute distress. On 4 L oxygen nasal cannula. Wears 3 at baseline. Patient was transition down to 3 L and had pulse ox 98%. Wheezes throughout all lung babb, some rhonchi in the bases. No accessory muscle use, no rales or crackles. Normal S1-S2 on cardiac exam. No lower extremity edema. Cussed with patient plan for DuoNebs, steroids labs, chest x-ray. I reviewed patient's labs, significant for mild leukocytosis white blood count 14.1, otherwise labs reassuring, on my reassessment patient still has scant wheezes in the lungs midlung field and bases bilaterally however improved from p rior. States symptoms are improving. Will administer 1 additional albuterol treatment, and reassess prior to discharge versus admission Reassessed patient after his last breathing treatment. States chest tightness has improved. Aeration of lungs is improved, still scant rhonchi in bilateral bases. Ambulated patient personally, heart rate went up to 118, he did become tachypneic however not hypoxic. I discussed with patient his comfort with discharge vs observation admit. Pt not yet comfortable with going home as he remains symptomatic. Plan for admission for obs for COPD exacerbation. Case discussed with MIKE Oshea, kindly accept patient for admission. Patient admitted in stable condition. Undiagnosed new problem with uncertain prognosis? @ -No Drug Therapy requiring intensive monitoring for toxicity (Heparin, Nitro, Insulin, Cardizem)? @ -No Were any procedures done? @ -No Diagnosis/symptom? @Asthma exacerbation Acute, or Chronic, or Acute on Chronic? @Acute Uncomplicated (without systemic symptoms) or Complicated (systemic symptoms)? Complicated Side effects of treatment? @ -No Exacerbation, Progression, or Severe Exacerbation? @ -Exacerbation Poses a threat to life or bodily function? How? (Chest pain, USA, ID, pneumonia, PE, COPD, DKA, ARF, appy, cholecystitis, CVA, Diverticulitis, Homicidal, Suicidal, threat to staff... and all critical care pts) @ -Yes, potentially - Lab Data Result diagrams: 06/25/24 16:57 06/25/24 16:57 Lab Results 06/25/24 06/25/24 06/25/24 Range/Units 16:57 16:57 16:57 WBC 14.1 H (3.8-10.6) k/uL RBC 4.84 (4.30-5.90) m/uL Hgb 15.2 (13.0-17.5) gm/dL Hct 46.3 (39.0-53.0) % MCV 95.8 (80.0-100.0) fL MCH 31.4 (25.0-35.0) pg MCHC 32.8 (31.0-37.0) g/dL RDW 13.2 (11.5-15.5) % Plt Count 271 (150-450) k/uL MPV 6.7 Neutrophils % 78 % Lymphocytes % 13 % Monocytes % 5 % Eosinophils % 3 % Basophils % 0 % Neutrophils # 11.0 H (1.3-7.7) k/uL Lymphocytes # 1.8 (1.0-4.8) k/uL Monocytes # 0.7 (0-1.0) k/uL Eosinophils # 0.4 (0-0.7) k/uL Basophils # 0.0 (0-0.2) k/uL PT 10.0 (10.0-12.5) sec INR 0.9 (<1.2) APTT 24.0 (22.0-30.0) sec Sodium 139 (137-145) mmol/L Potassium 4.0 (3.5-5.1) mmol/L Chloride 107 (98-107) mmol/L Carbon Dioxide 25 (22-30) mmol/L Anion Gap 7 mmol/L BUN 14 (9-20) mg/dL Creatinine 0.70 (0.66-1.25) mg/dL Est GFR (CKD-EPI)AfAm >90 (>60 ml/min/1.73 sqM) Est GFR (CKD-EPI)NonAf >90 (>60 ml/min/1.73 sqM) Glucose 123 H (74-99) mg/dL Calcium 8.9 (8.4-10.2) mg/dL Total Bilirubin 0.6 (0.2-1.3) mg/dL AST 16 L (17-59) U/L ALT 12 (4-49) U/L Alkaline Phosphatase 60 (38-126) U/L Troponin I (0.000-0.034) ng/mL NT-Pro-B Natriuret Pep <20 pg/mL Total Protein 6.4 (6.3-8.2) g/dL Albumin 3.9 (3.5-5.0) g/dL Influenza Type A (PCR) (Not Detectd) Influenza Type B (PCR) (Not Detectd) RSV (PCR) (Not Detectd) SARS-CoV-2 (PCR) (Not Detectd) 06/25/24 06/25/24 06/25/24 Range/Units 16:57 16:57 16:57 WBC (3.8-10.6) k/uL RBC (4.30-5.90) m/uL Hgb (13.0-17.5) gm/dL Hct (39.0-53.0) % MCV (80.0-100.0) fL MCH (25.0-35.0) pg MCHC (31.0-37.0) g/dL RDW (11.5-15.5) % Plt Count (150-450) k/uL MPV Neutrophils % % Lymphocytes % % Monocytes % % Eosinophils % % Basophils % % Neutrophils # (1.3-7.7) k/uL Lymphocytes # (1.0-4.8) k/uL Monocytes # (0-1.0) k/uL Eosinophils # (0-0.7) k/uL Basophils # (0-0.2) k/uL PT (10.0-12.5) sec INR (<1.2) APTT (22.0-30.0) sec Sodium (137-145) mmol/L Potassium (3.5-5.1) mmol/L Chloride (98-107) mmol/L Carbon Dioxide (22-30) mmol/L Anion Gap mmol/L BUN (9-20) mg/dL Creatinine (0.66-1.25) mg/dL Est GFR (CKD-EPI)AfAm (>60 ml/min/1.73 sqM) Est GFR (CKD-EPI)NonAf (>60 ml/min/1.73 sqM) Glucose (74-99) mg/dL Calcium (8.4-10.2) mg/dL Total Bilirubin (0.2-1.3) mg/dL AST (17-59) U/L ALT (4-49) U/L Alkaline Phosphatase (38-126) U/L Troponin I <0.012 <0.012 (0.000-0.034) ng/mL NT-Pro-B Natriuret Pep pg/mL Total Protein (6.3-8.2) g/dL Albumin (3.5-5.0) g/dL Influenza Type A (PCR) Not Detected (Not Detectd) Influenza Type B (PCR) Not Detected (Not Detectd) RSV (PCR) Not Detected (Not Detectd) SARS-CoV-2 (PCR) Not Detected (Not Detectd) Disposition Clinical Impression: Asthma exacerbation Disposition: ADMITTED IP TO THIS HOSP Condition: Stable
[2024-06-25] MEDS: ALBUTEROL NEBULIZED 2.5 MG/3 ML INHALATION STA ×2 (16:37→19:20)
[2024-06-25] MEDS: methylPREDNISolone SOD SUCCI 125 MG/2 ML VIAL IV STA (17:02)
[2024-06-25 17:15] LABS: Basophils % (A) 0 %; Eosinophils # (A) 0.4 k/uL (0-0.7); Eosinophils % (A) 3 %; HCT 46.3 % (39.0-53.0); HGB 15.2 gm/dL (13.0-17.5); Lymphocytes # (A) 1.8 k/uL (1.0-4.8); Lymphocytes % (A) 13 %; MCH 31.4 pg (25.0-35.0); MCHC 32.8 g/dL (31.0-37.0); MCV 95.8 fL (80.0-100.0); Mean Platelet Volume 6.7; Monocytes # (A) 0.7 k/uL (0-1.0); Monocytes % (A) 5 %; Neutrophils % (A) 78 %; Platelet Count 271 k/uL (150-450); RBC 4.84 m/uL (4.30-5.90); RDW 13.2 % (11.5-15.5); WBC 14.1 k/uL (3.8-10.6)
[2024-06-25 17:26] LABS: ALT 12 U/L (4-49); AST 16 U/L (17-59); African American GFR (CKD) >90 (>60 ml/min/1.73 sqM); Albumin 3.9 g/dL (3.5-5.0); Alkaline Phosphatase 60 U/L (38-126); Anion Gap 7 mmol/L; Blood Urea Nitrogen 14 mg/dL (9-20); Calcium 8.9 mg/dL (8.4-10.2); Carbon Dioxide 25 mmol/L (22-30); Chloride 107 mmol/L (98-107); Glucose 123 mg/dL (74-99); Non-African American GFR(CKD) >90 (>60 ml/min/1.73 sqM); Sodium 139 mmol/L (137-145); Total Bilirubin 0.6 mg/dL (0.2-1.3); Total Protein 6.4 g/dL (6.3-8.2)
[2024-06-25] MEDS: AZITHROMYCIN 500 MG in SODIUM CHLORIDE 0.9% 250 ML IVPB STA (17:29)
[2024-06-25 17:30] LABS: INR 0.9 (<1.2)
[2024-06-25 17:33] LABS: NT-Pro-B-Type Natriuretic Pept <20 pg/mL
--- NOTE | 2024-06-25 18:30 | XR ---
EXAMINATION TYPE: XR chest 2V DATE OF EXAM: 06/25/2024 COMPARISON: 05/28/2024 INDICATION: Difficulty breathing TECHNIQUE: Frontal and lateral views of the chest are obtained. FINDINGS: The heart size is normal. The pulmonary vasculature is normal. The lungs are clear. IMPRESSION: 1. No acute pulmonary process. [facility], Workstation: [facility], 06/25/2024 6:28 PM
[2024-06-25] MEDS: IPRATROPIUM-ALBUTEROL 3 ML NEB INHALATION ONE (19:19)
[2024-06-25] MEDS: IPRATROPIUM 0.5 MG/2.5 ML NEBU INHALATION STA (19:19)
[2024-06-25] MEDS ORDERED: ALPRAZolam 0.25 MG TAB PO PRN (22:13)
[2024-06-25] MEDS ORDERED: NALOXONE 0.4 MG/ML 1 ML VIAL IV PRN (22:13)
[2024-06-25] MEDS ORDERED: MAG HYDROX/AL HYDROX/SIMETH 30 ML CUP PO PRN (22:13)
[2024-06-25] MEDS ORDERED: ACETAMINOPHEN TAB 325 MG TAB PO PRN (22:13)
[2024-06-25] MEDS ORDERED: traMADol 50 MG TAB PO PRN (22:13)
[2024-06-25] MEDS ORDERED: CALCIUM CARBONATE 500 MG CHEWABLE PO PRN (22:13)
[2024-06-26] MEDS: IPRATROPIUM-ALBUTEROL 3 ML NEB INHALATION SCH (00:02)
[2024-06-26] MEDS: ALBUTEROL NEBULIZED 2.5 MG/3 ML INHALATION PRN (03:09)
[2024-06-26] MEDS: FLUTICASONE 110 MCG INHALER INHALATION SCH (08:35)
[2024-06-26] MEDS ORDERED: OMEGA FISH OIL PO SCH (09:00)
[2024-06-26] MEDS: METOPROLOL SUCCINATE (ER) 25 MG TAB.ER.24H PO SCH (09:26)
[2024-06-26] MEDS: lisinopriL 20 MG TAB PO SCH (09:26)
[2024-06-26] MEDS: guaiFENesin 600 MG TABLET.ER PO SCH (09:26)
[2024-06-26] MEDS: MONTELUKAST 10 MG TAB PO SCH (09:26)
[2024-06-26] MEDS: ATORVASTATIN 20 MG TAB PO SCH (09:26)
[2024-06-26] MEDS: FAMOTIDINE 20 MG TAB PO SCH (09:26)
[2024-06-26] MEDS: ASPIRIN 81 MG PO SCH (09:41)
[2024-06-26] MEDS ORDERED: methylPREDNISolone SOD SUCCIN 40 MG in SODIUM CHLORIDE 0.9% 100 ML IVPB SCH (12:15)
[2024-06-26] MEDS: ENOXAPARIN 60 MG/0.6 ML SYRINGE SQ SCH (13:36)
[2024-06-26] MEDS ORDERED: DEXTROSE 50% SYRINGE 50 ML IVP PRN ×2 (13:36)
[2024-06-26] MEDS: methylPREDNISolone SOD SUCCI 40 MG/ML 1 ML VIAL IVP SCH (13:41)
--- NOTE | 2024-06-26 14:12 | P.HPIM ---
History of Present Illness H&P Date: 06/26/24 Chief Complaint: shortness of breath Patient is a 64-year-old male with asthma on 3 L nasal cannula home oxygen, type 2 diabetes, hyperlipidemia, hypertension presenting with shortness of breath. States shortness of breath started yesterday. He reports he noticed feeling li ghtheaded and chest pressure which was made worse while ambulating. Patient states he had a sore throat on Saturday that quickly resolved. Patient admits to having nonproductive cough. Patient states while sleeping the night before admission he awoke multiple , in the middle of the night, to do his breathing treatment due to shortness of breath, and then decided to come to the emergency department. He regularly follows up with Dr. Del Toro. He was last seen by him 2 weeks ago and was told everything was fine. He has had a stress test done in the last 6 weeks and was told it was normal. He has no history of CAD or any family history of MD or CVA. Patient admits to wheezing. Patient denies fever, chills, headache, vision changes, paresthesias, syncope, heart palpitations, nausea, vomiting, diarrhea, urinary symptoms. EKG independently interpreted displays sinus rhythm, moderate intraventricular conduction delay, rate 95 bpm, QTc 400 MS CXR independently interpreted displays no acute pulmonary process Troponin less than 0.012 x 2, proBNP less than 20, WBC 14.1, Hgb 15.2, INR 0.9, potassium 4.0, BUN 14, creatinine 0.70, glucose 123 T98.3 F, CA 103, RR 17, BP 125/73, O2 sat 95% on 3 L nasal cannula ED documentation reviewed. Review of systems: Pertinent positives and negatives as discussed in HPI, a complete review of systems was performed and all other systems are negative. Social history: Tobacco: Former 4 pack year smoker, quit 40 years ago Alcohol: Denies alcohol use Recreational drugs: Denies illicit drug use Travel: No recent travel Physical examination: Vital signs reviewed General: non toxic, no distress, appears at stated age, morbidly obese Derm: no unusual rashes/lesions, warm Head: atraumatic, normocephalic, symmetric Eyes: EOMI, anicteric sclera, pupils equal round reactive to light ENT: Nose and ears atraumatic Neck: No cervical lymphadenopathy, trachea midline, supple Mouth: no lip lesion, mucus membranes moist Cardiovascular: S1S2 reg, no murmur, positive dorsalis pedis pulse bilateral, no edema Lungs: CTA bilateral, no rhonchi, no rales, no accessory muscle use Abdominal: soft, nontender to palpation, no guarding Ext: muscle strength 5 out of 5 in all 4 extremities grossly, no gross muscle atrophy Neuro: CN II-XI grossly intact, no gross focal neuro deficits Psych: Alert, oriented to person, place, and time Assessment/Plan: Patient is a 64-year-old male with asthma on 3 L nasal cannula home oxygen, type 2 diabetes, hyperlipidemia, hypertension presenting with shortness of breath. #. Acute hypoxemic respiratory failure in the setting of asthma exacerbation #. Acute asthma exacerbation Continue albuterol nebulized 2.5 mg inhalation every 4 as needed Continue with home med of DuoNeb 3 mL inhalation 4 times daily Continue with home med of fluticasone per pulmonary night 100 mcg 2 puff twice daily Placed on IV Solu-Medrol 40 mg every 12 hours Pulmonology consulted #. Leukocytosis WBC 14.1 Likely reactive to steroids given Follow-up CBC #. Type 2 diabetes Insulin SQ sliding scale Accu-Cheks, monitor for hypoglycemia #. Hypertension Continue with lisinopril 20 mg p.o. daily #. Hyperlipidemia Continue with Lipitor 20 mg daily #. Anxiety Xanax 0.25 mg p.o. every 6 hours as needed F: N/A E: Replete electrolytes as needed N: Consistent carbohydrate diet A: Ambulatory DVT prophylaxis: Lovenox 60 SQ daily GI prophylaxis: Pepcid 20 mg twice daily The patient is admitted with an anticipated less than 2 midnight stay for evaluation of acute hypoxemic respiratory failure secondary to asthma exacerbation. CODE STATUS: Full code Discussed with: Patient Anticipated discharge place: Home Attestation I have seen and examined this patient with my resident , discussed the same with the resident/SHANKAR, and agree with the dictator's assessment and plan as written Dr. Shiva holland Past Medical History Past Medical History: Asthma, COPD, Diabetes Mellitus, Hyperlipidemia, Hypertension, Osteoarthritis (OA) Additional Past Medical History / Comment(s): Persistent asthma, NIDDM II- arthritis R knee, COVID + History of Any Multi-Drug Resistant Organisms: None Reported Past Surgical History: Hernia Repair Additional Past Surgical History / Comment(s): Umbilical hernia repair Past Anesthesia/Blood Transfusion Reactions: Motion Sickness Past Psychological History: No Psychological Hx Reported Smoking Status: Former smoker Past Alcohol Use History: None Reported Past Drug Use History: None Reported - Past Family History Mother History Unknown: Yes Family Medical History: Cancer Additional Family Medical History / Comment(s): Mother of ovarian cancer at the age of 78yrs. Father History Unknown: Yes Family Medical History: GI Bleed Additional Family Medical History / Comment(s): Father around age 50 from a bleeding ulcer. Brother(s) Family Medical History: No Reported History Additional Family Medical History / Comment(s): The patient has 2 brothers and one from pneumonia at age 59, 1 is alive with history of bariatric surgery. Sister(s) Family Medical History: No Reported History Additional Family Medical History / Comment(s): Patient has 2 sisters and one has history of gallbladder disease. Daughter(s) Family Medical History: Unable to Obtain Additional Family Medical History / Comment(s): Patient has one daughter with no major medical problems. Son(s) Additional Family Medical History / Comment(s): Patient has 2 sons and one has hypertension. Medications and Allergies Home Medications Medication Instructions Recorded Confirmed Type Montelukast Sodium [Singulair] 10 mg PO DAILY 05/18/18 06/26/24 History Fluticasone Propionate [Flovent 2 puff INHALATION RT-BID 06/16/20 06/26/24 History Hfa 220 mcg] Albuterol Inhaler [Ventolin Hfa 2 puff INHALATION RT-Q4H PRN 02/05/22 06/26/24 History Inhaler] Ipratropium-Albuterol Nebulize 3 ml INHALATION RT-QID 05/28/24 06/26/24 History [Duoneb 0.5 mg-3 mg/3 ml Soln] Magnesium (Unknown Strength) 1 dose PO DAILY 05/28/24 06/26/24 History [place]-3 Fish Oil (Unknown Strength) 1 dose PO DAILY 05/28/24 06/26/24 History Vitamin C (Unknown Strength) 1 dose PO DAILY 05/28/24 06/26/24 History Vitamin D3 (Unknown Strength) 1 dose PO DAILY 05/28/24 06/26/24 History Zinc (Unknown Strength) 1 dose PO DAILY 05/28/24 06/26/24 History lisinopriL [Zestril] 20 mg PO DAILY 05/28/24 06/26/24 History Allergies Allergy/AdvReac Type Severity Reaction Status Date / Time adhesive Allergy Rash/Hives Verified 06/26/24 08:53 Qicakyl-WHB-GyM Reductase AdvReac MUSCLE PAIN Verified 06/26/24 08:53 Inhibitor [Cmzmrxq-For-Nwq Reductase Inhibitor] Physical Exam Vitals: Vital Signs Temp Pulse Resp BP Pulse Ox 06/26/24 06:51 103 H 17 125/73 06/26/24 04:55 82 16 112/56 95 06/26/24 03:19 100 06/26/24 03:11 102 H 06/26/24 02:34 105 H 20 123/68 94 L 06/26/24 00:30 97.6 F 110 H 20 103/61 97 06/25/24 22:00 98 22 95 06/25/24 20:00 100 22 137/84 91 L 06/25/24 19:36 99 06/25/24 19:21 91 06/25/24 19:00 93 18 168/92 93 L 06/25/24 18:00 92 18 95 06/25/24 17:00 104 H 21 168/92 95 06/25/24 16:49 100 06/25/24 16:38 103 H 06/25/24 16:30 18 06/25/24 16:16 97 18 06/25/24 16:04 98.3 F 101 H 20 129/71 97 Intake and Output 06/25/24 06/26/24 06/26/24 22:59 06:59 14:59 Other: # Voids 1 Weight 155.582 kg Results CBC & Chem 7: 06/25/24 16:57 06/25/24 16:57 Labs: Abnormal Lab Results - Last 24 Hours (Table) 06/25/24 06/25/24 Range/Units 16:57 16:57 WBC 14.1 H (3.8-10.6) k/uL Neutrophils # 11.0 H (1.3-7.7) k/uL Glucose 123 H (74-99) mg/dL AST 16 L (17-59) U/L
--- NOTE | 2024-06-26 16:29 | CT ---
EXAMINATION TYPE: CT chest angio for PE DATE OF EXAM: 06/26/2024 4:09 PM COMPARISON: 11/24/2020, 03/09/2020. CLINICAL INDICATION: Male, 64 years old with history of Dyspnea; Dyspnea. SOB. R/O PE. TECHNIQUE/CONTRAST: CTA scan of the thorax is performed with IV Contrast, patient injected with 180ml mL of Isovue 370, M IP images are created and reviewed these are created on a separate workstation.. CT DLP: 1472 mGycm, Automated exposure control for dose reduction was used. FINDINGS: Pulmonary Artery: There is no evidence for a filling defect within the pulmonary vasculature to sugge st acute pulmonary embolism. The pulmonary artery is of normal size. Lungs/Pleura: No evidence of focal consolidation, pleural effusion or pneumothorax. 9 mm right lower lobe pulmonary nodule. Mild intralobular septal thickening present. Streaky atelectasis in the lung b ases. Airway: Large airways are patent. Heart: Is prominent in size. Mild inferior Vasculature: No evidence of aortic aneurysm. Mediastinum: No gross evidence of adenopathy. Partially calcified lymph nodes in the right pulmonary hilum. Musculoskeletal: No acute osseous abnormalities Soft Tissues/lymph nodes: Unremarkable. Lower neck: No significant findings. Upper Abdomen: No significant findings. IMPRESSION: 1. No evidence of central pulmonary embolism. Limited evaluation of the segmental and subsegmental br anches. 2. Stable right lower lobe 9 mm pulmonary nodule. Likely chronic granulomatous change given other fin dings. Chronic granulomatous changes with partially calcified lymph nodes in the mediastinum. 3. Pulmonary edema with mild cardiomegaly correlate with serum BNP. Follow up recommendations for incidental pulmonary nodules, if there are any, are per [employer] or [employer]. https://radiopaedia.org/articles/bpcyirowoz-[email or web address]?lang=us [facility], , 06/26/2024 4:26 PM
[2024-06-26 17:17] LABS: Glucose,Whole Blood 183 mg/dL (70-110)
[2024-06-26] MEDS: INSULIN ASPART (NovoLOG) 100 UNIT/ML VIAL SQ SCH (17:51)
--- NOTE | 2024-06-26 18:03 | P.CNPUL ---
History of Present Illness Consult date: 06/26/24 Reason for consult: dyspnea, cough, asthma, hypoxemia Chief complaint: Shortness of breath and wheezing History of present illness: Patient is a 64-year-old male well-known to me for history of chronic asthmatic bronchitis with history of chronic persistent asthma on bronchodilators and oxygen dependency, patient has obesity hypoventilation, however denied any sleep studies. Patient has been on 3 L nasal cannula, for the last 24 to 48 hours has been having increasing shortness of breath chest tightness cough decided to come into hospital for further evaluation. Patient has cardiovascular evaluation 6 weeks ago with a stress test reportedly normal. Patient underwent chest x-ray no acute pulmonary process seen, CT scan of the chest also performed which revealed no pulmonary embolism however right lower lobe nodule seen with Central calcification likely chronic granuloma Review of Systems All systems: negative Past Medical History Past Medical History: Asthma, COPD, Diabetes Mellitus, Hyperlipidemia, Hypertension, Osteoarthritis (OA) Additional Past Medical History / Comment(s): Persistent asthma, NIDDM II- arthritis R knee, COVID + History of Any Multi-Drug Resistant Organisms: None Reported Past Surgical History: Hernia Repair Additional Past Surgical History / Comment(s): Umbilical hernia repair Past Anesthesia/Blood Transfusion Reactions: Motion Sickness Past Psychological History: No Psychological Hx Reported Smoking Status: Former smoker Past Alcohol Use History: None Reported Past Drug Use History: None Reported - Past Family History Mother History Unknown: Yes Family Medical History: Cancer Additional Family Medical History / Comment(s): Mother of ovarian cancer at the age of 78yrs. Father History Unknown: Yes Family Medical History: GI Bleed Additional Family Medical History / Comment(s): Father around age 50 from a bleeding ulcer. Brother(s) Family Medical History: No Reported History Additional Family Medical History / Comment(s): The patient has 2 brothers and one from pneumonia at age 59, 1 is alive with history of bariatric surgery. Sister(s) Family Medical History: No Reported History Additional Family Medical History / Comment(s): Patient has 2 sisters and one has history of gallbladder disease. Daughter(s) Family Medical History: Unable to Obtain Additional Family Medical History / Comment(s): Patient has one daughter with no major medical problems. Son(s) Additional Family Medical History / Comment(s): Patient has 2 sons and one has hypertension. Medications and Allergies Home Medications Medication Instructions Recorded Confirmed Type Montelukast Sodium [Singulair] 10 mg PO DAILY 05/18/18 06/26/24 History Fluticasone Propionate [Flovent 2 puff INHALATION RT-BID 06/16/20 06/26/24 History Hfa 220 mcg] Albuterol Inhaler [Ventolin Hfa 2 puff INHALATION RT-Q4H PRN 02/05/22 06/26/24 History Inhaler] Ipratropium-Albuterol Nebulize 3 ml INHALATION RT-QID 05/28/24 06/26/24 History [Duoneb 0.5 mg-3 mg/3 ml Soln] Magnesium (Unknown Strength) 1 dose PO DAILY 05/28/24 06/26/24 History [place]-3 Fish Oil (Unknown Strength) 1 dose PO DAILY 05/28/24 06/26/24 History Vitamin C (Unknown Strength) 1 dose PO DAILY 05/28/24 06/26/24 History Vitamin D3 (Unknown Strength) 1 dose PO DAILY 05/28/24 06/26/24 History Zinc (Unknown Strength) 1 dose PO DAILY 05/28/24 06/26/24 History lisinopriL [Zestril] 20 mg PO DAILY 05/28/24 06/26/24 History Allergies Allergy/AdvReac Type Severity Reaction Status Date / Time adhesive Allergy Rash/Hives Verified 06/26/24 08:53 Ggljjlc-SFJ-ZyT Reductase AdvReac MUSCLE PAIN Verified 06/26/24 08:53 Inhibitor [Fmdowqh-Ltn-[place] Reductase Inhibitor] Physical Exam Vitals: Vital Signs Temp Pulse Pulse Resp BP BP Pulse Ox 06/26/24 08:48 100 06/26/24 08:36 100 06/26/24 08:00 90 15 113/68 93 L 06/26/24 07:00 97.8 F 103 H 17 151/93 95 06/26/24 06:51 103 H 17 125/73 06/26/24 04:55 82 16 112/56 95 06/26/24 03:19 100 06/26/24 03:11 102 H 06/26/24 02:34 105 H 20 123/68 94 L 06/26/24 00:30 97.6 F 110 H 20 103/61 97 06/25/24 22:00 98 22 95 06/25/24 20:00 100 22 137/84 91 L 06/25/24 19:36 99 06/25/24 19:21 91 06/25/24 19:00 93 18 168/92 93 L 06/25/24 18:00 92 18 95 06/25/24 17:00 104 H 21 168/92 95 06/25/24 16:49 100 06/25/24 16:38 103 H 06/25/24 16:30 18 06/25/24 16:16 97 18 06/25/24 16:04 98.3 F 101 H 20 129/71 97 Intake and Output 06/25/24 06/26/24 06/26/24 22:59 06:59 14:59 Intake Total 118 Balance 118 Intake: Oral 118 Other: # Voids 1 Weight 155.582 kg - Constitutional General appearance: average body habitus, cooperative, disheveled - EENT Eyes: EOMI, PERRLA ENT: normal oropharynx Ears: bilateral: normal - Neck Carotids: bilateral: upstroke normal Thyroid: bilateral: normal size - Respiratory Respiratory: bilateral: wheezing - Cardiovascular Rhythm: regular Heart sounds: normal: S1, S2 - Gastrointestinal General gastrointestinal: distended, soft - Integumentary Integumentary: normal turgor - Neurologic Neurologic: CNII-XII intact - Musculoskeletal Musculoskeletal: gait normal, generalized weakness, strength equal bilaterally - Psychiatric Psychiatric: A&O x's 3, appropriate affect, intact judgment & insight Results - Laboratory Findings CBC and BMP: 06/25/24 16:57 06/25/24 16:57 PT/INR, D-dimer PT 10.0 sec (10.0-12.5) 06/25/24 16:57 INR 0.9 (<1.2) 06/25/24 16:57 Abnormal lab findings: Abnormal Labs 06/25/24 06/25/24 16:57 16:57 WBC 14.1 H Neutrophils # 11.0 H Glucose 123 H AST 16 L Assessment and Plan Assessment: Acute asthma exacerbation Chronic persistent asthma Chronic hypoxic respiratory failure Morbid obesity of extreme nature Right lower lobe calcified granuloma Obesity hypoventilation syndrome Likely sleep disordered breathing and sleep apnea Plan: Continue bronchodilator, IV steroids inhaled corticosteroids Continue supplemental oxygen Patient has been counseled and educated about sleep disordered breathing and sleep apnea recommend sleep study as outpatient, patient will think about it Will continue to follow right lower lobe calcified granuloma If patient remains stable in next 24 to 48 hours can be discharged and follow-up as outpatient Time with Patient: Greater than 30
[2024-06-26 20:25] LABS: Glucose,Whole Blood 202 mg/dL (70-110)
[2024-06-27 05:39] LABS: Glucose,Whole Blood 189 mg/dL (70-110)
[2024-06-27 07:18] VITALS: BP 138/88; RESP 18; TEMP 98.3
[2024-06-27 12:02] LABS: Glucose,Whole Blood 255 mg/dL (70-110)
--- NOTE | 2024-06-27 12:41 | P.DS ---
Providers Date of admission: 06/25/24 22:13 Discharge Diagnosis: Acute hypoxemic respiratory failure in the setting of an asthma exacerbation Acute acceptable exacerbation Leukocytosis Type 2 diabetes Hypertension Hyperlipidemia Anxiety Obesity Hospital Course: Patient is a 64-year-old male with asthma on 3 L nasal cannula home oxygen, type 2 diabetes, hyperlipidemia, hypertension presenting with shortness of breath. States shortness of breath started yesterday. He reports he noticed feeling lightheaded and chest pressure which was made worse while ambulating. Patient states he had a sore throat on Saturday that quickly resolved. Patient admits to having nonproductive cough. Patient states while sleeping the night before admission he awoke multiple , in the middle of the night, to do his breathing treatment due to shortness of breath, and then decided to come to the emergency department. He regularly follows up with Dr. Del Toro. He was last seen by him 2 weeks ago and was told everything was fine. He has had a stress test done in the last 6 weeks and was told it was normal. He has no history of CAD or any family history of UT or CVA. Patient admits to wheezing. Patient denies fever, chills, headache, vision changes, paresthesias, syncope, heart palpitations, benitez sea, vomiting, diarrhea, urinary symptoms. EKG independently interpreted displays sinus rhythm, moderate intraventricular conduction delay, rate 95 bpm, QTc 400 MS CXR independently interpreted displays no acute pulmonary process Troponin less than 0.012 x 2, proBNP less than 20, WBC 14.1, Hgb 15.2, INR 0.9, potassium 4.0, BUN 14, creatinine 0.70, glucose 123, D-dimer 0.66 T98.3 F, DC 103, RR 17, BP 125/73, O2 sat 95% on 3 L nasal cannula Patient admitted to internal medicine service. Pulmonology consulted. 06/27/2024: Patient seen and examined at bedside. States he is doing much better. Patient is hemodynamically stable. No wheezing on auscultation. Chest CTA ordered showed no pulmonary embolism, right lower lobe nodule seen with central calcification likely chronic granuloma. He was seen and cleared by pulmonology. Patient is being discharged with prednisone taper. He will follow-up with pulmonology and his PCP. He is being discharged home. Vital signs reviewed and stable. Physical examination: Vital signs reviewed General: non toxic, no distress, appears at stated age, morbidly obese Derm: no unusual rashes/lesions, warm Head: atraumatic, normocephalic, symmetric Eyes: EOMI, anicteric sclera, pupils equal round reactive to light ENT: Nose and ears atraumatic Mouth: no lip lesion, mucus membranes moist Cardiovascular: S1S2 reg, no murmur, positive dorsalis pedis pulse bilateral, no edema Lungs: CTA bilateral, no rhonchi, no rales, no accessory muscle use Abdominal: soft, nontender to palpation, no guarding Ext: muscle strength 5 out of 5 in all 4 extremities grossly, no gross muscle atrophy Neuro: CN II-XI grossly intact, no gross focal neuro deficits Psych: Alert, oriented to person, place, and time A total of greater than 30 minutes of time were spent preparing this complex discharge summary. Patient was discharge on the primary second 2023 at 12:15 PM Expected date of discharge: 06/27/24 Attending physician: Duong Bales Consults: 06/26/24 08:35 Consult Physician Routine Consulting Provider: Glynn Restrepo Consult Reason/Comments: COPD Do you want consulting provider notified?: Yes Primary care physician: Marco Zamora Patient Condition at Discharge: Stable Plan - Discharge Summary New Discharge Prescriptions: New Atorvastatin [Lipitor] 20 mg PO DAILY #30 tab Aspirin 81 mg PO DAILY #90 tab predniSONE See Taper PO DAILY 8 Days #20 tab Metoprolol Succinate (ER) [Toprol XL] 25 mg PO DAILY #30 tab Continue Montelukast Sodium [Singulair] 10 mg PO DAILY Fluticasone Propionate [Flovent Hfa 220 mcg] 2 puff INHALATION RT-BID Albuterol Inhaler [Ventolin Hfa Inhaler] 2 puff INHALATION RT-Q4H PRN PRN Reason: Shortness Of Breath [place]-3 Fish Oil (Unknown Strength) 1 dose PO DAILY Ipratropium-Albuterol Nebulize [Duoneb 0.5 mg-3 mg/3 ml Soln] 3 ml INHALATION RT-QID lisinopriL [Zestril] 20 mg PO DAILY Magnesium (Unknown Strength) 1 dose PO DAILY Vitamin C (Unknown Strength) 1 dose PO DAILY Vitamin D3 (Unknown Strength) 1 dose PO DAILY Zinc (Unknown Strength) 1 dose PO DAILY Discharge Medication List Montelukast Sodium [Singulair] 10 mg PO DAILY 05/18/18 [History] Fluticasone Propionate [Flovent Hfa 220 mcg] 2 puff INHALATION RT-BID 06/16/20 [History] Albuterol Inhaler [Ventolin Hfa Inhaler] 2 puff INHALATION RT-Q4H PRN 02/05/22 [History] Ipratropium-Albuterol Nebulize [Duoneb 0.5 mg-3 mg/3 ml Soln] 3 ml INHALATION RT-QID 05/28/24 [History] Magnesium (Unknown Strength) 1 dose PO DAILY 05/28/24 [History] [place]-3 Fish Oil (Unknown Strength) 1 dose PO DAILY 05/28/24 [History] Vitamin C (Unknown Strength) 1 dose PO DAILY 05/28/24 [History] Vitamin D3 (Unknown Strength) 1 dose PO DAILY 05/28/24 [History] Zinc (Unknown Strength) 1 dose PO DAILY 05/28/24 [History] lisinopriL [Zestril] 20 mg PO DAILY 05/28/24 [History] Aspirin 81 mg PO DAILY #90 tab 06/27/24 [Rx] Atorvastatin [Lipitor] 20 mg PO DAILY #30 tab 06/27/24 [Rx] Metoprolol Succinate (ER) [Toprol XL] 25 mg PO DAILY #30 tab 06/27/24 [Rx] predniSONE See Taper PO DAILY 8 Days #20 tab 06/27/24 [Rx] Follow up Appointment(s)/Referral(s): Marco Zamora [Primary Care Provider] - 1-2 days Glynn Restrepo MD [STAFF PHYSICIAN] - 1 Week Patient Instructions/Handouts: Asthma (DC)
[2024-06-27 13:03] VITALS: PULSE 98
== END 2024-06-27 13:14 | disposition home or self-care (01) ==
LOC: EC 16:02 → 6NMEDSUR 22:13
PROVIDERS: ADMIT Hospitalist; ATTEND Hospitalist
DX: J45.901 Unspecified asthma with (acute) exacerbation (principal); J96.21 Acute and chronic respiratory failure with hypoxia; E66.2 Morbid (severe) obesity with alveolar hypoventilation; E11.9 Type 2 diabetes mellitus without complications; D72.829 Elevated white blood cell count, unspecified; E78.5 Hyperlipidemia, unspecified; F41.9 Anxiety disorder, unspecified; I10 Essential (primary) hypertension; Z99.81 Dependence on supplemental oxygen; Z86.16 Personal history of COVID-19; Z87.891 Personal history of nicotine dependence; Z79.899 Other long term (current) drug therapy; Z79.84 Long term (current) use of oral hypoglycemic drugs; Z79.82 Long term (current) use of aspirin; Z79.51 Long term (current) use of inhaled steroids
CPT/HCPCS: 96376 ×2; 96372 ×2; 96365; 96367; 96375; 99291; 36415; 94640 ×6; 93005; 85379; 83880; 80053; 84484 ×2; 85025; 85610; 85730; 83036; 84145; 87636; 71046; 71275; G0378 ×3; J0456; J0696; J1650 ×2; Q9967; J2919 ×3

== ENCOUNTER 2024-08-13 19:07 | Observation (INO) | payer BC ==
--- NOTE | 2024-08-13 19:44 | ED ---
General Adult HPI - General Chief complaint: Shortness of Breath Stated complaint: SOB Time Seen by Provider: 08/13/24 19:44 Source: patient Mode of arrival: ambulatory Limitations: no limitations - History of Present Illness Initial comments: Joni is a 64-year-old gentleman with a history of COPD on 3 L nasal cannula oxygen at baseline. Patient reports that for the past 2 days he has felt like he "has a bug" and states that he has been coughing, nonproductive cough a little bit of pressure in the chest and some wheezing that does not seem to improve much with his home DuoNebs. Patient is uncertain if he is had a fever because he has been taking Tylenol [id number] for dental pain he did see a dentist today and was prescribed Tylenol and antibiotics. No known sick contacts. Last antibiotics about 2 months ago when hospitalized for COPD. - Related Data Home Medications Medication Instructions Recorded Confirmed Montelukast Sodium [Singulair] 10 mg PO DAILY 05/18/18 06/26/24 Fluticasone Propionate [Flovent 2 puff INHALATION RT-BID 06/16/20 06/26/24 Hfa 220 mcg] Albuterol Inhaler [Ventolin Hfa 2 puff INHALATION RT-Q4H PRN 02/05/22 06/26/24 Inhaler] Ipratropium-Albuterol Nebulize 3 ml INHALATION RT-QID 05/28/24 06/26/24 [Duoneb 0.5 mg-3 mg/3 ml Soln] Magnesium (Unknown Strength) 1 dose PO DAILY 05/28/24 06/26/24 [place]-3 Fish Oil (Unknown Strength) 1 dose PO DAILY 05/28/24 06/26/24 Vitamin C (Unknown Strength) 1 dose PO DAILY 05/28/24 06/26/24 Vitamin D3 (Unknown Strength) 1 dose PO DAILY 05/28/24 06/26/24 Zinc (Unknown Strength) 1 dose PO DAILY 05/28/24 06/26/24 lisinopriL [Zestril] 20 mg PO DAILY 05/28/24 06/26/24 Previous Rx's Medication Instructions Recorded Aspirin 81 mg PO DAILY #90 tab 06/27/24 Atorvastatin [Lipitor] 20 mg PO DAILY #30 tab 06/27/24 Metoprolol Succinate (ER) [Toprol 25 mg PO DAILY #30 tab 06/27/24 XL] predniSONE See Taper PO DAILY 8 Days #20 tab 06/27/24 Allergies Allergy/AdvReac Type Severity Reaction Status Date / Time adhesive Allergy Rash/Hives Verified 08/13/24 19:24 Uxstsow-MLW-GxN Reductase AdvReac MUSCLE PAIN Verified 08/13/24 19:24 Inhibitor [Rfotqtx-Hsc-Gxk Reductase Inhibitor] Review of Systems ROS Statement: Those systems with pertinent positive or pertinent negative responses have been documented in the HPI. ROS Other: All systems not noted in ROS Statement are negative. Past Medical History Past Medical History: Asthma, COPD, Diabetes Mellitus, Hyperlipidemia, Hypertension, Osteoarthritis (OA) Additional Past Medical History / Comment(s): Persistent asthma, NIDDM II- arthritis R knee, COVID + History of Any Multi-Drug Resistant Organisms: None Reported Past Surgical History: Hernia Repair Additional Past Surgical History / Comment(s): Umbilical hernia repair Past Anesthesia/Blood Transfusion Reactions: Motion Sickness Past Psychological History: No Psychological Hx Reported Smoking Status: Former smoker Past Alcohol Use History: None Reported Past Drug Use History: None Reported - Past Family History Mother History Unknown: Yes Family Medical History: Cancer Additional Family Medical History / Comment(s): Mother of ovarian cancer at the age of 78yrs. Father History Unknown: Yes Family Medical History: GI Bleed Additional Family Medical History / Comment(s): Father around age 50 from a bleeding ulcer. Brother(s) Family Medical History: No Reported History Additional Family Medical History / Comment(s): The patient has 2 brothers and one from pneumonia at age 59, 1 is alive with history of bariatric surgery. Sister(s) Family Medical History: No Reported History Additional Family Medical History / Comment(s): Patient has 2 sisters and one has history of gallbladder disease. Daughter(s) Family Medical History: Unable to Obtain Additional Family Medical History / Comment(s): Patient has one daughter with no major medical problems. Son(s) Additional Family Medical History / Comment(s): Patient has 2 sons and one has hypertension. General Exam - General Exam Comments Initial Comments: Physical Exam GENERAL: Morbidly obese, oxygen dependent no acute distress HENT: Normocephalic, Atraumatic. EYES: PERRL, EOMI PULMONARY: Wheezing in all lung babb CARDIOVASCULAR: There is a regular rate and rhythm without any murmurs gallops or rubs. ABDOMEN: Soft and nontender SKIN: Skin is clear with no lesions or rashes and otherwise unremarkable. : Deferred NEUROLOGIC: Patient is alert and oriented x3. Moving all extremities spontaneously MUSCULOSKELETAL: No lower extremity swelling or edema. PSYCHIATRIC: Normal psychiatric evaluation. Limitations: no limitations Course Vital Signs 08/13/24 08/13/24 08/13/24 19:20 21:20 21:32 Temperature 99 F Pulse Rate 108 H 99 100 Respiratory 20 Rate Blood Pressure 143/85 O2 Sat by Pulse 96 Oximetry 08/13/24 08/14/24 08/14/24 23:39 00:52 01:03 Temperature 98.3 F Pulse Rate 101 H 100 102 H Respiratory 18 Rate Blood Pressure 148/100 O2 Sat by Pulse 99 Oximetry 08/14/24 08/14/24 01:42 02:00 Temperature Pulse Rate 100 98 Respiratory 18 18 Rate Blood Pressure 140/90 136/90 O2 Sat by Pulse 95 97 Oximetry EKG Findings - EKG Comments: EKG Findings:: EKG interpreted by me EKG obtained due to tachycardia and shortness of breath EKG obtained at 1938 rate is 102 rhythm is sinus tach normal intervals MA 161 QRS 104 QTc [address] elevations or depressions no evidence of acute ischemia or infarction. Medical Decision Making - Medical Decision Making Was pt. sent in by a medical professional or institution (, PA, GROUP ACCOUNT DIRECTOR, urgent care, hospital, or retirement...) When possible be specific @ -No Did you speak to anyone other than the patient for history (EMS, parent, family, police, friend...)? What history was obtained from this source @ -No Did you review nursing and triage notes (agree or disagree)? Why? @ -I reviewed and agree with nursing and triage notes Were old charts reviewed (outside hosp., previous admission, EMS record, old EKG, old radiological studies, urgent care reports/EKG's, retirement records)? Report findings @ -Yes previous charts were reviewed Differential Diagnosis (chest pain, altered mental status, abdominal pain women, abdominal pain men, vaginal bleeding, weakness, fever, dyspnea, syncope, headache, dizziness, GI bleed, back pain, seizure, CVA, palpatations, mental health)? @ -Differential Dyspnea: Coronary syndrome, arrhythmia, tamponade, asthma, COPD, pulmonary embolism, pneumonia, pneumothorax, pulmonary effusion, anaphylaxis, diabetic ketoacidosis, flailed chest, pulmonary contusion, diaphragmatic rupture, anemia, neuromuscular, this is not meant to be an all-inclusive list. EKG interpreted by me (3pts min.). @ -As above X-rays interpreted by me (1pt min.). @ -No focal consolidations CT interpreted by me (1pt min.). @ -None done U/S interpreted by me (1pt. min.). @ -None done What testing was considered but not performed or refused? (CT, X-rays, U/S, labs)? Why? @ -None What meds were considered but not given or refused? Why? @ -None Did you discuss the management of the patient with other professionals (professionals i.e. , PA, GROUP ACCOUNT DIRECTOR, lab, RT, psych nurse, social insurance specialist, diamond setter apprentice, teacher, equal employment opportunity officer, caseworker)? Give summary @ -No Was smoking cessation discussed for >3mins.? @ -No Was critical care preformed (if so, how long)? @ -No Were there social determinants of health that impacted care today? How? (Homelessness, low income, unemployed, alcoholism, drug addiction, transportation, low edu. Level, literacy, decrease access to med. care, skilled nursing, rehab)? @ -No Was there de-escalation of care discussed even if they declined (Discuss DNR or withdrawal of care, Hospice)? DNR status @ -No What co-morbidities impacted this encounter? (DM, HTN, Smoking, COPD, CAD, Cancer, CVA, ARF, Chemo, Hep., AIDS, mental health diagnosis, sleep apnea, morbid obesity)? @ -COPD, morbid obesity Was patient admitted / discharged? Hospital course, mention meds given and route, prescriptions, significant lab abnormalities, going to OR and other pertinent info. @ -Admit The patient was seen and evaluated history is obtained from patient. Patient w heezing in all lung babb despite breathing treatment less than 2 hours ago at home. Labs including viral swab chest x-ray were obtained patient was treated with steroids and breathing treatment, he had persistent wheezing worse on the right than the left after breathing treatment repeat breathing treatment was given patient continued to wheeze. Patient does have nebulizer and supplemental oxygen at home but at this time does not feel comfortable going home stating that in the past he is needed to be admitted when he is asymptomatic. This time patient will be admitted for COPD exacerbation. Scheduled breathing treatments and steroids were ordered patient admitted to [facility] hospitalist group. Undiagnosed new problem with uncertain prognosis? @ -No Drug Therapy requiring intensive monitoring for toxicity (Heparin, Nitro, Insulin, Cardizem)? @ -No Were any procedures done? @ -No Diagnosis/symptom? @ -COPD exacerbation Acute, or Chronic, or Acute on Chronic? @ -Acute Uncomplicated (without systemic symptoms) or Complicated (systemic symptoms)? @ -Default Side effects of treatment? @ -No Exacerbation, Progression, or Severe Exacerbation? @ -Exacerbation Poses a threat to life or bodily function? How? (Chest pain, USA, HI, pneumonia, PE, COPD, DKA, ARF, appy, cholecystitis, CVA, Diverticulitis, Homicidal, Suicidal, threat to staff... and all critical care pts) @ -No - Lab Data Result diagrams: 08/13/24 20:04 08/13/24 20:35 Lab Results 08/13/24 08/13/24 08/13/24 Range/Units 20:04 20:04 20:04 WBC 8.9 (3.8-10.6) k/uL RBC 4.59 (4.30-5.90) m/uL Hgb 14.6 (13.0-17.5) gm/dL Hct 43.9 (39.0-53.0) % MCV 95.6 (80.0-100.0) fL MCH 31.7 (25.0-35.0) pg MCHC 33.2 (31.0-37.0) g/dL RDW 13.1 (11.5-15.5) % Plt Count 234 (150-450) k/uL MPV 6.6 Neutrophils % 72 % Lymphocytes % 15 % Monocytes % 8 % Eosinophils % 3 % Basophils % 0 % Neutrophils # 6.4 (1.3-7.7) k/uL Lymphocytes # 1.4 (1.0-4.8) k/uL Monocytes # 0.7 (0-1.0) k/uL Eosinophils # 0.3 (0-0.7) k/uL Basophils # 0.0 (0-0.2) k/uL PT 10.2 (10.0-12.5) sec INR 0.9 (<1.2) APTT 20.7 L (22.0-30.0) sec Sodium (137-145) mmol/L Potassium (3.5-5.1) mmol/L Chloride (98-107) mmol/L Carbon Dioxide (22-30) mmol/L Anion Gap mmol/L BUN (9-20) mg/dL Creatinine (0.66-1.25) mg/dL Est GFR (CKD-EPI)AfAm (>60 ml/min/1.73 sqM) Est GFR (CKD-EPI)NonAf (>60 ml/min/1.73 sqM) Glucose (74-99) mg/dL Plasma Lactic Acid Jorge 1.5 (0.7-2.0) mmol/L Calcium (8.4-10.2) mg/dL Magnesium (1.6-2.3) mg/dL Total Bilirubin (0.2-1.3) mg/dL AST (17-59) U/L ALT (4-49) U/L Alkaline Phosphatase (38-126) U/L Troponin I (0.000-0.034) ng/mL NT-Pro-B Natriuret Pep pg/mL Total Protein (6.3-8.2) g/dL Albumin (3.5-5.0) g/dL Influenza Type A (PCR) (Not Detectd) Influenza Type B (PCR) (Not Detectd) RSV (PCR) (Not Detectd) SARS-CoV-2 (PCR) (Not Detectd) 08/13/24 08/13/24 08/13/24 Range/Units 20:04 20:09 20:35 WBC (3.8-10.6) k/uL RBC (4.30-5.90) m/uL Hgb (13.0-17.5) gm/dL Hct (39.0-53.0) % MCV (80.0-100.0) fL MCH (25.0-35.0) pg MCHC (31.0-37.0) g/dL RDW (11.5-15.5) % Plt Count (150-450) k/uL MPV Neutrophils % % Lymphocytes % % Monocytes % % Eosinophils % % Basophils % % Neutrophils # (1.3-7.7) k/uL Lymphocytes # (1.0-4.8) k/uL Monocytes # (0-1.0) k/uL Eosinophils # (0-0.7) k/uL Basophils # (0-0.2) k/uL PT (10.0-12.5) sec INR (<1.2) APTT (22.0-30.0) sec Sodium 137 (137-145) mmol/L Potassium 4.0 (3.5-5.1) mmol/L Chloride 105 (98-107) mmol/L Carbon Dioxide 26 (22-30) mmol/L Anion Gap 6 mmol/L BUN 14 (9-20) mg/dL Creatinine 0.66 (0.66-1.25) mg/dL Est GFR (CKD-EPI)AfAm >90 (>60 ml/min/1.73 sqM) Est GFR (CKD-EPI)NonAf >90 (>60 ml/min/1.73 sqM) Glucose 125 H (74-99) mg/dL Plasma Lactic Acid Jorge (0.7-2.0) mmol/L Calcium 9.0 (8.4-10.2) mg/dL Magnesium 2.0 (1.6-2.3) mg/dL Total Bilirubin 0.7 (0.2-1.3) mg/dL AST 15 L (17-59) U/L ALT 10 (4-49) U/L Alkaline Phosphatase 55 (38-126) U/L Troponin I <0.012 (0.000-0.034) ng/mL NT-Pro-B Natriuret Pep 29 pg/mL Total Protein 6.2 L (6.3-8.2) g/dL Albumin 3.9 (3.5-5.0) g/dL Influenza Type A (PCR) Not Detected (Not Detectd) Influenza Type B (PCR) Not Detected (Not Detectd) RSV (PCR) Not Detected (Not Detectd) SARS-CoV-2 (PCR) Not Detected (Not Detectd) Disposition Clinical Impression: Acute exacerbation of chronic obstructive pulmonary disease Disposition[facility] Condition: Stable Referrals: Marco Zamora [Primary Care Provider] - 1-2 days
[2024-08-13 20:16] LABS: Basophils % (A) 0 %; Eosinophils # (A) 0.3 k/uL (0-0.7); Eosinophils % (A) 3 %; HCT 43.9 % (39.0-53.0); HGB 14.6 gm/dL (13.0-17.5); Lymphocytes # (A) 1.4 k/uL (1.0-4.8); Lymphocytes % (A) 15 %; MCH 31.7 pg (25.0-35.0); MCHC 33.2 g/dL (31.0-37.0); MCV 95.6 fL (80.0-100.0); Mean Platelet Volume 6.6; Monocytes # (A) 0.7 k/uL (0-1.0); Monocytes % (A) 8 %; Neutrophils # (A) 6.4 k/uL (1.3-7.7); Neutrophils % (A) 72 %; Platelet Count 234 k/uL (150-450); RBC 4.59 m/uL (4.30-5.90); RDW 13.1 % (11.5-15.5); WBC 8.9 k/uL (3.8-10.6)
[2024-08-13] MEDS: methylPREDNISolone SOD SUCCI 125 MG/2 ML VIAL IV STA (20:19)
[2024-08-13] MEDS: SODIUM CHLORIDE 0.9% 500 ML 500 ML IV STA (20:20)
[2024-08-13 20:44] LABS: INR 0.9 (<1.2); Prothrombin Time 10.2 sec (10.0-12.5)
[2024-08-13 20:57] LABS: Partial Thromboplastin Time 20.7 sec (22.0-30.0)
[2024-08-13] MEDS: IPRATROPIUM-ALBUTEROL 3 ML NEB INHALATION STA (21:19)
[2024-08-13 21:33] LABS: ALT 10 U/L (4-49); AST 15 U/L (17-59); African American GFR (CKD) >90 (>60 ml/min/1.73 sqM); Albumin 3.9 g/dL (3.5-5.0); Alkaline Phosphatase 55 U/L (38-126); Anion Gap 6 mmol/L; Blood Urea Nitrogen 14 mg/dL (9-20); Carbon Dioxide 26 mmol/L (22-30); Chloride 105 mmol/L (98-107); Glucose 125 mg/dL (74-99); Non-African American GFR(CKD) >90 (>60 ml/min/1.73 sqM); Sodium 137 mmol/L (137-145); Total Bilirubin 0.7 mg/dL (0.2-1.3); Total Protein 6.2 g/dL (6.3-8.2)
[2024-08-13 21:41] LABS: NT-Pro-B-Type Natriuretic Pept 29 pg/mL
--- NOTE | 2024-08-13 23:25 | XR ---
EXAMINATION TYPE: XR chest 2V DATE OF EXAM: 08/13/2024 8:17 PM CLINICAL INDICATION:Male, 64 years old with history of difficulty breathing; [facility] COMPARISON: Chest radiographs from TECHNIQUE: XR chest 2V Frontal view of the chest. FINDINGS: Lungs/Pleura: Bibasilar atelectasis. There is no evidence of pleural effusion, focal consolidation, o r pneumothorax. Pulmonary vascularity: Unremarkable. Heart/mediastinum: Cardiomediastinal silhouette is unremarkable. Musculoskeletal: No acute osseous pathology. Other findings: None IMPRESSION: Bibasilar atelectasis with no acute cardiopulmonary disease/process. [facility], , 08/13/2024 11:22 PM
[2024-08-14] MEDS: IPRATROPIUM-ALBUTEROL 3 ML NEB INHALATION STA (00:52)
[2024-08-14] MEDS ORDERED: NALOXONE 0.4 MG/ML 1 ML VIAL IVP PRN (03:32)
--- NOTE | 2024-08-14 05:18 | P.CNPUL ---
History of Present Illness Consult date: 08/14/24 Requesting physician: Ruthie Nixon Chief complaint: shortness breath, cough, chest tightness History of present illness: Patient is a 64-year-old male with past medical history significant for chronic bronchial asthma, former tobacco smoker, hypertension, hyperlipidemia, diabetes mellitus, neuropathy, obesity. He follows with Dr. Restrepo in an outpatient setting for management of his chronic bronchial asthma. Utilizes Duo-nebs, Flovent, as needed albuterol rescue inhaler. He is oxygen dependent on 3 L/min nasal cannula at home. Recently, completed a sleep study outpatient. Patient presents emergency department last night with a chief complaint of 2 days of progressively worsening shortness of breath, nonproductive cough, wheezing and chest tightness. Denies sick contacts. Patient lives alone. Denies fevers or chills. Chest x-ray done on admission showing bibasilar atelectasis without acute cardiopulmonary process. Viral screen negative for influenza, RSV, COVID. CBC unremarkable for leukocytosis. CMP also unremarkable, electrolytes WDL, LFTs unremarkable. Troponin less than 0.012. NT proBNP low. Most recent vitals: Temperature 98.3 F, heart rate 100 bpm, blood pressure 121/83 mmHg, nontachypneic. SpO2 96% on 3 L/min nasal cannula. My initial evaluation is in the ED. He is sitting up in bed, in no acute distress. On his standard 3 L/m nasal cannula. Review of Systems Constitutional: Denies chills, Denies fever, Denies poor appetite, Denies weight gain, Denies weight loss Ears, nose, mouth and throat: Reports sore throat, Denies headache, Denies nasal congestion, Denies nasal discharge, Denies post-nasal drip, Denies sinus pain, Denies sinus pressure Cardiovascular: Denies chest pain, Denies dyspnea on exertion, Denies lightheadedness, Denies orthopnea, Denies palpitations, Denies paroxysmal nocturnal dyspnea, Denies syncope Respiratory: Reports congestion, Reports cough, Reports dyspnea, Reports home oxygen, Reports wheezing, Denies cough with sputum, Denies hemoptysis Gastrointestinal: Denies abdominal pain, Denies diarrhea, Denies nausea, Denies vomiting Genitourinary: Denies dysuria Musculoskeletal: Denies limitation of motion Integumentary: Denies rash, Denies sores Neurological: Denies seizures, Denies syncope Psychiatric: Denies anxiety, Denies depression Past Medical History Past Medical History: Asthma, COPD, Diabetes Mellitus, Hyperlipidemia, Hypertension, Osteoarthritis (OA) Additional Past Medical History / Comment(s): Persistent asthma, NIDDM II- arthritis R knee, COVID + History of Any Multi-Drug Resistant Organisms: None Reported Past Surgical History: Hernia Repair Additional Past Surgical History / Comment(s): Umbilical hernia repair Past Anesthesia/Blood Transfusion Reactions: Motion Sickness Past Psychological History: No Psychological Hx Reported Smoking Status: Former smoker Past Alcohol Use History: None Reported Past Drug Use History: None Reported - Past Family History Mother History Unknown: Yes Family Medical History: Cancer Additional Family Medical History / Comment(s): Mother of ovarian cancer at the age of 78yrs. Father History Unknown: Yes Family Medical History: GI Bleed Additional Family Medical History / Comment(s): Father around age 50 from a bleeding ulcer. Brother(s) Family Medical History: No Reported History Additional Family Medical History / Comment(s): The patient has 2 brothers and one from pneumonia at age 59, 1 is alive with history of bariatric surgery. Sister(s) Family Medical History: No Reported History Additional Family Medical History / Comment(s): Patient has 2 sisters and one has history of gallbladder disease. Daughter(s) Family Medical History: Unable to Obtain Additional Family Medical History / Comment(s): Patient has one daughter with no major medical problems. Son(s) Additional Family Medical History / Comment(s): Patient has 2 sons and one has hypertension. Medications and Allergies Home Medications Medication Instructions Recorded Confirmed Type Montelukast Sodium [Singulair] 10 mg PO DAILY 05/18/18 08/14/24 History Fluticasone Propionate [Flovent 2 puff INHALATION RT-BID 06/16/20 08/14/24 History Hfa 220 mcg] Albuterol Inhaler [Ventolin Hfa 2 puff INHALATION RT-Q4H PRN 02/05/22 08/14/24 History Inhaler] Ipratropium-Albuterol Nebulize 3 ml INHALATION RT-QID 05/28/24 08/14/24 History [Duoneb 0.5 mg-3 mg/3 ml Soln] Magnesium (Unknown Strength) 1 dose PO DAILY 05/28/24 08/14/24 History [place]-3 Fish Oil (Unknown Strength) 1 dose PO DAILY 05/28/24 08/14/24 History Vitamin C (Unknown Strength) 1 dose PO DAILY 05/28/24 08/14/24 History Vitamin D3 (Unknown Strength) 1 dose PO DAILY 05/28/24 08/14/24 History Zinc (Unknown Strength) 1 dose PO DAILY 05/28/24 08/14/24 History lisinopriL [Zestril] 20 mg PO HS 05/28/24 08/14/24 History Allergies Allergy/AdvReac Type Severity Reaction Status Date / Time adhesive Allergy Rash/Hives Verified 08/14/24 15:35 Yowbwya-ZUT-SnC Reductase AdvReac MUSCLE PAIN Verified 08/14/24 15:35 Inhibitor [Zczkyey-Zcf-Jmg Reductase Inhibitor] Physical Exam Vitals: Vital Signs Temp Pulse Resp BP Pulse Ox 08/14/24 04:05 100 18 121/83 96 08/14/24 02:00 98 18 136/90 97 08/14/24 01:42 100 18 140/90 95 08/14/24 01:03 102 H 08/14/24 00:52 100 08/13/24 23:39 98.3 F 101 H 18 148/100 99 08/13/24 21:32 100 08/13/24 21:20 99 08/13/24 19:20 99 F 108 H 20 143/85 96 Intake and Output 08/13/24 08/13/24 08/14/24 14:59 22:59 06:59 Other: Weight 151.5 kg GENERAL EXAM: Alert, 64-year-old obese male, sitting up in bed, no respiratory distress.. HEAD: Normocephalic and atraumatic EYES: Normal reaction of pupils, equal size. NOSE: Clear with pink turbinates. THROAT: No erythema or exudates. Mallampati score 3-4 NECK: No masses, no JVD. CHEST: No chest wall deformity. LUNGS: Equal air entry with expiratory wheezes heard bilaterally and throughout. On 3 L/min nasal cannula. No conversational dyspnea or accessory muscle use.. CVS: S1 and S2 normal with no audible murmur, regular rhythm. No extra heart sounds ABDOMEN: No hepatosplenomegaly, active bowel sounds, no guarding or rigidity. SPINE: No scoliosis or deformity SKIN: No rashes CENTRAL NERVOUS SYSTEM: No focal deficits, tone is normal in all 4 extremities. EXTREMITIES: There is no peripheral edema, clubbing, or cyanosis. Peripheral pulses are intact. Results - Laboratory Findings CBC and BMP: 08/13/24 20:04 08/13/24 20:35 PT/INR, D-dimer PT 10.2 sec (10.0-12.5) 08/13/24 20:04 INR 0.9 (<1.2) 08/13/24 20:04 Abnormal lab findings: Abnormal Labs 08/13/24 08/13/24 20:04 20:35 APTT 20.7 L Glucose 125 H AST 15 L Total Protein 6.2 L - Diagnostic Findings Chest x-ray: image reviewed Assessment and Plan Assessment: Exacerbation of chronic bronchial asthma Acute dyspnea, secondary to above Chronic hypoxemic respiratory failure, maintained on 3 L/min nasal cannula while at home Hypertension History of hyperlipidemia Diabetes mellitus type 2, complicated by diabetic peripheral neuropathy Morbid obesity, with a BMI of 49.3 kg/m Remote history of tobacco use Plan: Patient's medications, labs, chest x-ray reviewed Continue supplemental oxygen, currently on 3 L/min nasal cannula which she wears at home Chest x-ray unremarkable for acute cardiopulmonary process, bibasilar atelectasis Viral screen negative for influenza, RSV, COVID Start patient on combination of DuoNebs [id number], Symbicort inhaler, and IV Solu-Medrol We will continue to follow the patient while inpatient, he is going to follow-up with his established digital print operator on hospital discharge I have personally seen and examined the patient, performed the documentation and the assessment and plan as written. Number of minutes spent on the visit:20 On today's evaluation of 08/14/2024, the patient is seen in a joint evaluation along with the nurse practitioner. Morbidly obese male patient with known history of COPD/asthma followed up with Dr. Restrepo on an outpatient basis. He has been also receiving Flovent and albuterol presents and HFA on an as-needed basis. The patient is coming in with increased dyspnea cough chest tightness and wheezing and typical of COPD/asthma exacerbation. He has a cough and congestion in addition. No significant leukocytosis. Electrolytes are all within normal limits. proBNP is not elevated and troponin is negative and the viral screen is negative. Chest x-ray was reviewed. No evidence of any acute pulmonary infiltrates some atelectatic changes in lung bases bilaterally. The patient is currently on 3 L of oxygen by nasal cannula. Will continue the bronchodilators. Will continue the steroids and will assess his progress. Will add Robitussin DM for cough and congestion. Time with Patient: Greater than 30
[2024-08-14] MEDS: methylPREDNISolone SOD SUCCI 125 MG/2 ML VIAL IV STA (05:38)
[2024-08-14] MEDS: IPRATROPIUM-ALBUTEROL 3 ML NEB INHALATION SCH (08:23)
[2024-08-14] MEDS: SYMBICORT 160-4.5 MCG INHALER INHALATION SCH (08:23)
[2024-08-14] MEDS ORDERED: predniSONE 20 MG TAB PO SCH (09:00)
[2024-08-14] MEDS ORDERED: guaiFENesin-DM 100-10MG/5ML 10 ML CUP PO PRN (11:13)
[2024-08-14] MEDS: MONTELUKAST 10 MG TAB PO SCH (11:45)
[2024-08-14] MEDS: methylPREDNISolone SOD SUCCI 125 MG/2 ML VIAL IV SCH (11:45)
[2024-08-14] MEDS: HEPARIN SODIUM,PORCINE 5,000 UNIT/ML 1 ML VIAL SQ SCH (16:04)
[2024-08-14] MEDS ORDERED: FLUTICASONE 110 MCG INHALER INHALATION SCH (20:00)
[2024-08-14] MEDS: FAMOTIDINE 20 MG TAB PO SCH (21:07)
[2024-08-14] MEDS ORDERED: DEXTROSE 50% SYRINGE 50 ML IVP PRN ×2 (22:06)
--- NOTE | 2024-08-14 22:06 | P.HPIM ---
History of Present Illness H&P Date: 08/14/24 Chief Complaint: Shortness of breath Patient is a 63-year-old male with a past medical history of COPD, hypertension, hyperlipidemia, restless the past,, diabetes type 2, prior history of smoking and morbid obesity with BMI 49.3 presents to ER with complaints of worsening sh ortness of breath for the past 2 days. Patient also having cough without any sputum production and chest tightness. Denies any fever or chills. No nausea vomiting abdominal pain or diarrhea. No complaints of chest pain. Denied any leg swelling. Patient is on oxygen at 3 L via nasal cannula. Recently completed sleep study. Chest x-ray showed bibasilar atelectasis with no acute cardiopulmonary process. EKG showed sinus tachycardia with heart rate 102 Laboratory data showed WBC 8.1 hemoglobin 14.6 and platelets 234 sodium 137 potassium 4.0 chloride 105 bicarb is 26 BUN 14 and creatinine 0.66 and blood sugar 125 and AST 15 ALT 10 alk phos 55 troponin less than 0.012 proBNP 29 and albumin 3.9 Influenza A B RSV and COVID-19 PCR not detected. Review of Systems Constitutional: Patient denies any fever or chills . No generalized weakness or weight loss. Abdomen: Patient denied nausea vomiting and diarrhea and abdominal pain. Cardiovascular: Patient denies any chest pain. Chest tightness. Positive short of breath. No palpitations. Respiratory: patient cough without sputum production and shortness of breath. Neurologic: Patient denied any numbness or tingling. no headache. Musculoskeletal: Patient denies any complaints of joint swelling or deformity. Skin: Negative Psychiatric: Negative Endocrine: No heat or cold intolerance. No recent weight gain. Genitourinary: No dysuria or hematuria. All other 14 point ROS negative except the above Past Medical History Past Medical History: Asthma, COPD, Diabetes Mellitus, Hyperlipidemia, Hypertension, Osteoarthritis (OA) Additional Past Medical History / Comment(s): Persistent asthma, NIDDM II- arthritis R knee, COVID + History of Any Multi-Drug Resistant Organisms: None Reported Past Surgical History: Hernia Repair Additional Past Surgical History / Comment(s): Umbilical hernia repair Past Anesthesia/Blood Transfusion Reactions: Motion Sickness Past Psychological History: No Psychological Hx Reported Additional Psychological History / Comment(s): Pt resides in a home and his brother lives in the same building. He has a glucometer. He has a nebulizer. He drives. He has a pulsosimetor. 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 Smoking Status: Former smoker Past Alcohol Use History: None Reported Additional Past Alcohol Use History / Comment(s): Pt started smoking in 1976 and quit [id number] Past Drug Use History: None Reported Additional Drug Use History / Comment(s): Patient quit smoking about 40 years ago, after 4 years of use, no alcohol intake, has nebulizer. 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 Father History Unknown: Yes Family Medical History: GI Bleed Additional Family Medical History / Comment(s): Father around age 50 from a bleeding ulcer. Brother(s) Family Medical History: No Reported History Additional Family Medical History / Comment(s): The patient has 2 brothers and one from pneumonia at age 59, 1 is alive with history of bariatric surgery. Sister(s) Family Medical History: No Reported History Additional Family Medical History / Comment(s): Patient has 2 sisters and one patricio s history of gallbladder disease. Daughter(s) Family Medical History: Unable to Obtain Additional Family Medical History / Comment(s): Patient has one daughter with no major medical problems. Son(s) Additional Family Medical History / Comment(s): Patient has 2 sons and one has hypertension. Medications and Allergies Home Medications Medication Instructions Recorded Confirmed Type Montelukast Sodium [Singulair] 10 mg PO DAILY 05/18/18 08/14/24 History Fluticasone Propionate [Flovent 2 puff INHALATION RT-BID 06/16/20 08/14/24 History Hfa 220 mcg] Albuterol Inhaler [Ventolin Hfa 2 puff INHALATION RT-Q4H PRN 02/05/22 08/14/24 History Inhaler] Ipratropium-Albuterol Nebulize 3 ml INHALATION RT-QID 05/28/24 08/14/24 History [Duoneb 0.5 mg-3 mg/3 ml Soln] Magnesium (Unknown Strength) 1 dose PO DAILY 05/28/24 08/14/24 History [place]-3 Fish Oil (Unknown Strength) 1 dose PO DAILY 05/28/24 08/14/24 History Vitamin C (Unknown Strength) 1 dose PO DAILY 05/28/24 08/14/24 History Vitamin D3 (Unknown Strength) 1 dose PO DAILY 05/28/24 08/14/24 History Zinc (Unknown Strength) 1 dose PO DAILY 05/28/24 08/14/24 History lisinopriL [Zestril] 20 mg PO HS 05/28/24 08/14/24 History Allergies Allergy/AdvReac Type Severity Reaction Status Date / Time adhesive Allergy Rash/Hives Verified 08/14/24 15:35 Vhxiogl-HHY-AaI Reductase AdvReac MUSCLE PAIN Verified 08/14/24 15:35 Inhibitor [Wutfrhm-Bld-Jks Reductase Inhibitor] Physical Exam Vitals: Vital Signs Temp Pulse Resp BP Pulse Ox 08/14/24 17:11 98.6 F 106 H 23 129/92 97 08/14/24 16:28 110 H 08/14/24 16:12 110 H 08/14/24 16:04 98.5 F 98 22 115/85 96 08/14/24 14:36 100 25 H 127/75 93 L 08/14/24 12:05 106 H 08/14/24 11:52 108 H 08/14/24 11:46 106 H 18 109/80 93 L 08/14/24 08:55 98.2 F 105 H 22 127/82 94 L 08/14/24 08:43 110 H 08/14/24 08:24 100 08/14/24 05:41 96 18 136/91 93 L 08/14/24 04:05 100 18 121/83 96 08/14/24 02:00 98 18 136/90 97 08/14/24 01:42 100 18 140/90 95 08/14/24 01:03 102 H 08/14/24 00:52 100 08/13/24 23:39 98.3 F 101 H 18 148/100 99 08/13/24 21:32 100 08/13/24 21:20 99 08/13/24 19:20 99 F 108 H 20 143/85 96 Intake and Output 08/14/24 08/14/24 08/14/24 06:59 14:59 22:59 Other: Weight 151.5 kg PHYSICAL EXAMINATION: Patient is sitting on the bed, no acute distress, awake alert and oriented. Morbidly obese. HEENT: Normocephalic. Neck is supple. Pupils reactive. Nostrils clear. Oral cavity is moist. Neck reveals no JVD, carotid bruits, or thyromegaly. CHEST EXAMINATION: Trachea is central. Symmetrical expansion. Bilateral diffuse wheezing and scattered rhonchi. Nonlabored breathing.. CARDIAC: Normal S1, S2 with no gallops. No murmurs ABDOMEN: Soft. Bowel sounds normal. No organomegaly. No abdominal bruits. Extremities: reveal no edema. No clubbing or cyanosis Neurologically awake, alert, oriented x3 with well-coordinated movements. No focal deficits noted Skin: No rash or skin lesions. Psychiatric: Coperative. Nonsuicidal Musculoskeletal: No joint swelling or deformity. Normal range of motion. Results CBC & Chem 7: 08/13/24 20:04 08/13/24 20:35 Labs: Abnormal Lab Results - Last 24 Hours (Table) 08/13/24 08/13/24 Range/Units 20:04 20:35 APTT 20.7 L (22.0-30.0) sec Glucose 125 H (74-99) mg/dL AST 15 L (17-59) U/L Total Protein 6.2 L (6.3-8.2) g/dL Thrombosis Risk Factor Assmnt - DVT/VTE Prophylaxis DVT/VTE Prophylaxis: Pharmacologic Prophylaxis ordered Assessment and Plan Assessment: Worsening shortness of breath secondary to acute COPD exacerbation Chronic hypoxemic respiratory failure requiring 3 L oxygen via nasal cannula Chronic persistent asthmaHypertension Hyperlipidemia Osteoarthritis Diabetes type 2 dxw-dtbiity-klldljfvi Possible obstructive sleep apnea with recent sleep study Prior history of smoking Morbid obesity with BMI 49.3 GI and DVT prophylaxis with Pepcid and heparin subcu Plan: Patient will be continued on IV Solu-Medrol, DuoNebs every 4 hourly and Symbicor t. Continue with oxygen supplementation. Start back on home medications. Sliding scale as needed. Telemonitoring. Pulmonary is on board. Continue to follow closely. Time with Patient: Greater than 30
[2024-08-15] MEDS: IPRATROPIUM-ALBUTEROL 3 ML NEB INHALATION PRN (01:31)
[2024-08-15 07:18] VITALS: TEMP 98.2
[2024-08-15] MEDS: INSULIN ASPART (NovoLOG) 100 UNIT/ML VIAL SQ SCH (09:06)
[2024-08-15 09:08] LABS: Glucose,Whole Blood 196 mg/dL (70-110)
[2024-08-15 11:11] LABS: BUN/Creat Ratio 24.67 Ratio (12.00-20.00); Blood Urea Nitrogen 22.2 mg/dL (9.0-27.0); Calcium 8.8 mg/dL (8.7-10.3); Carbon Dioxide 22.3 mmol/L (21.6-31.8); Chloride 104 mmol/L (96-109); Glucose 219 mg/dL (70-110); Potassium 4.6 mmol/L (3.5-5.5); Sodium 138 mmol/L (135-145)
[2024-08-15 12:50] LABS: Glucose,Whole Blood 177 mg/dL (70-110)
[2024-08-15 15:01] VITALS: BP 145/81; PULSE 106; RESP 18
--- NOTE | 2024-08-15 15:09 | P.PN ---
Subjective Progress Note Date: 08/15/24 Patient is a 64-year-old male with past medical history significant for chronic bronchial asthma, former tobacco smoker, hypertension, hyperlipidemia, diabetes mellitus, neuropathy, obesity. He follows with Dr. Restrepo in an outpatient setting for management of his chronic bronchial asthma. Utilizes Duo-nebs, Flovent, as needed albuterol rescue inhaler. He is oxygen dependent on 3 L/min nasal cannula at home. Recently, completed a sleep study outpatient. Patient presents emergency department last night with a chief complaint of 2 days of progressively worsening shortness of breath, nonproductive cough, wheezing and chest tightness. Denies sick contacts. Patient lives alone. Denies fevers or chills. Chest x-ray done on admission showing bibasilar atelectasis without acute cardiopulmonary process. Viral screen negative for influenza, RSV, COVID. CBC unremarkable for leukocytosis. CMP also unremarkable, electrolytes WDL, LFTs unremarkable. Troponin less than 0.012. NT proBNP low. Most recent vitals: Temperature 98.3 F, heart rate 100 bpm, blood pressure 121/83 mmHg, nontachypneic. SpO2 96% on 3 L/min nasal cannula. My initial evaluation is in the ED. He is sitting up in bed, in no acute distress. On his standard 3 L/m nasal cannula. On today's evaluation of 08/15/2024, the patient is feeling better. Less mucus passing and wheezy compared to yesterday. No new complaints. The patient is interested in discharge as the patient is feeling much improved compared to yesterday. He is afebrile. Hemodynamically stable. Remains on DuoNeb. Remains on IV Solu-Medrol. No new complaints otherwise for now. Blood sugars are slightly elevated due to systemic steroids. Objective - Vital Signs Vital signs: Vital Signs Temp 98.2 F 08/15/24 07:00 Pulse 105 H 08/15/24 08:51 Resp 17 08/15/24 07:00 BP 136/83 08/15/24 07:00 Pulse Ox 95 08/15/24 07:00 FiO2 Intake & Output 08/14/24 08/15/24 08/15/24 18:59 06:59 18:59 Intake Total 118 Balance 118 Weight 151.5 kg Intake: Oral 118 Other: # Voids 2 - Exam GENERAL EXAM: Alert, 64-year-old obese male, sitting up in bed, no respiratory distress.. HEAD: Normocephalic and atraumatic EYES: Normal reaction of pupils, equal size. NOSE: Clear with pink turbinates. THROAT: No erythema or exudates. Mallampati score 3-4 NECK: No masses, no JVD. CHEST: No chest wall deformity. LUNGS: Equal air entry with expiratory wheezes heard bilaterally and throughout. On 3 L/min nasal cannula. No conversational dyspnea or accessory muscle use.. CVS: S1 and S2 normal with no audible murmur, regular rhythm. No extra heart sounds ABDOMEN: No hepatosplenomegaly, active bowel sounds, no guarding or rigidity. SPINE: No scoliosis or deformity SKIN: No rashes CENTRAL NERVOUS SYSTEM: No focal deficits, tone is normal in all 4 extremities. EXTREMITIES: There is no peripheral edema, clubbing, or cyanosis. Peripheral pulses are intact. - Labs CBC & Chem 7: 08/13/24 20:04 08/15/24 06:12 Labs: Abnormal Lab Results - Last 24 Hours (Table) 08/15/24 08/15/24 Range/Units 06:12 09:06 BUN/Creatinine Ratio 24.67 H (12.00-20.00) Ratio Glucose 219 H (70-110) mg/dL POC Glucose (mg/dL) 196 H (70-110) mg/dL Assessment and Plan Assessment: Exacerbation of chronic bronchial asthma Acute dyspnea, secondary to above Chronic hypoxemic respiratory failure, maintained on 3 L/min nasal cannula while at home Hypertension History of hyperlipidemia Diabetes mellitus type 2, complicated by diabetic peripheral neuropathy Morbid obesity, with a BMI of 49.3 kg/m Remote history of tobacco use Plan: Clinically improved and the patient's oxygenation is also improved Chest x-ray unremarkable for acute cardiopulmonary process, bibasilar atelectasis Viral screen negative for influenza, RSV, COVID Start patient on combination of DuoNebs [id number], Symbicort inhaler The patient should be able to discharge home either on Symbicort or his original Flovent as given to him by his hosiery knitter He should be able to follow-up with his hosiery knitter on an outpatient basis, Dr. Restrepo
--- NOTE | 2024-08-16 08:21 | P.DS ---
Providers Date of admission: 08/14/24 03:32 Expected date of discharge: 08/16/24 Attending physician: Duong Bales Consults: 08/14/24 03:32 Consult Physician Routine Consulting Provider: Dhiraj Jameson Consult Reason/Comments: COPD exacerbation Do you want consulting provider notified?: Yes, Notify in am Primary care physician: Marco Zamora Hospital Course: Final diagnosis Worsening shortness of breath secondary to acute COPD exacerbation Chronic hypoxemic respiratory failure requiring 3 L oxygen via nasal cannula Chronic persistent asthma Hypertension Hyperlipidemia Osteoarthritis Diabetes type 2 yvl-jadzfjw-snbmhiome Possible obstructive sleep apnea with recent sleep study Prior history of smoking Morbid obesity with BMI 49.3 GI and DVT prophylaxis Discharge disposition Patient is being discharged in a stable condition with guarded prognosis to home. Patient will follow-up with primary care provider in the outpatient setting upon discharge. Patient is to continue with prednisone taper along with DuoNebs and inhalers and outpatient follow-up with pulmonary Dr. Restrepo as scheduled. Total time taken is greater than 35 minutes. Hospital course This is a 64-year-old male who was recently admitted with increasing shortness of breath with COPD exacerbation. Patient monitored by pulmonary maintained on [id number] IV steroids along with DuoNebs showing some improvement and will transition to prednisone taper along with continued inhalers and DuoNebs on discharge. Patient chronically wears oxygen outpatient and is maintained on normal 2 to 3 L. Patient has been cleared by pulmonary for discharge and would like to go home. Please refer to other consultation notes for further HPI. Patient has been instructed to follow-up with primary care provider as well as his primary glove examiner Dr. Restrepo outpatient this week. Currently no reports of chest pain, shortness of breath, or palpitations. Patient is afebrile. No reports of nausea or vomiting and patient is tolerating diet. Patient will be discharged home. Her to prognosis and high risk for readmissions given significant comorbidities. Physical exam: Gen: This is a 64-year-old male who is awake, alert and oriented x 3, well- developed, appears older than stated age, morbidly obese HEENT: Head is atraumatic, normocephalic. Pupils equal, round. Sclerae is anicteric. NECK: Supple. No JVD. No lymphadenopathy. No thyromegaly. LUNGS: Diminished breath sounds bilaterally with some scattered expiratory wheezes and coarse rhonchi noted. No intercostal retractions. HEART: Regular rate and rhythm. No murmur. ABDOMEN: Soft. Obese. Bowel sounds are present. No masses. No tenderness. EXTREMITIES: No pedal edema. No calf tenderness. NEUROLOGICAL: Patient is awake, alert and oriented x3. Cranial nerves 2 through 12 are grossly intact. Please refer to medication reconciliation sheet for a list of medications. The impression and plan of care has been dictated by Ruthie Victoria, Nurse Practitioner as directed. Dr. Clifton MD I have performed a history and examination and MDM of this patient, discussed the same with the dictator, and agree with the dictator's assessment and plan as written ,documented as a scribe. Based on total visit time, I have performed more than 50% of the visit. Patient Condition at Discharge: Stable Plan - Discharge Summary New Discharge Prescriptions: New guaiFENesin-DM 100-10MG/5ML [Robitussin DM] 10 ml PO Q6HR PRN ml PRN Reason: Cough Famotidine [Pepcid] 20 mg PO BID 14 Days #28 tab Ipratropium-Albuterol Nebulize [Duoneb 0.5 mg-3 mg/3 ml Soln] 3 ml INHALATION RT-Q4H PRN each PRN Reason: Bronchospasm predniSONE See Taper PO DIRECTED #30 tab Fluticasone/Vilanterol [Breo Ellipta 100-25 Mcg Inhalr] 1 each IH DAILY #1 each Continue Montelukast Sodium [Singulair] 10 mg PO DAILY Albuterol Inhaler [Ventolin Hfa Inhaler] 2 puff INHALATION RT-Q4H PRN PRN Reason: Shortness Of Breath [place]-3 Fish Oil (Unknown Strength) 1 dose PO DAILY Ipratropium-Albuterol Nebulize [Duoneb 0.5 mg-3 mg/3 ml Soln] 3 ml INHALATION RT-QID lisinopriL [Zestril] 20 mg PO HS Magnesium (Unknown Strength) 1 dose PO DAILY Vitamin C (Unknown Strength) 1 dose PO DAILY Vitamin D3 (Unknown Strength) 1 dose PO DAILY Zinc (Unknown Strength) 1 dose PO DAILY Discontinued Fluticasone Propionate [Flovent Hfa 220 mcg] 2 puff INHALATION RT-BID Discharge Medication List Montelukast Sodium [Singulair] 10 mg PO DAILY 05/18/18 [History] Albuterol Inhaler [Ventolin Hfa Inhaler] 2 puff INHALATION RT-Q4H PRN 02/05/22 [History] Ipratropium-Albuterol Nebulize [Duoneb 0.5 mg-3 mg/3 ml Soln] 3 ml INHALATION RT-QID 05/28/24 [History] Magnesium (Unknown Strength) 1 dose PO DAILY 05/28/24 [History] [place]-3 Fish Oil (Unknown Strength) 1 dose PO DAILY 05/28/24 [History] Vitamin C (Unknown Strength) 1 dose PO DAILY 05/28/24 [History] Vitamin D3 (Unknown Strength) 1 dose PO DAILY 05/28/24 [History] Zinc (Unknown Strength) 1 dose PO DAILY 05/28/24 [History] lisinopriL [Zestril] 20 mg PO HS 05/28/24 [History] Famotidine [Pepcid] 20 mg PO BID 14 Days #28 tab 08/15/24 [Rx] Fluticasone/Vilanterol [Breo Ellipta 100-25 Mcg Inhalr] 1 each IH DAILY #1 each 08/15/24 [Rx] Ipratropium-Albuterol Nebulize [Duoneb 0.5 mg-3 mg/3 ml Soln] 3 ml INHALATION RT-Q4H PRN each 08/15/24 [Rx] guaiFENesin-DM 100-10MG/5ML [Robitussin DM] 10 ml PO Q6HR PRN ml 08/15/24 [Rx] predniSONE See Taper PO DIRECTED #30 tab 08/15/24 [Rx] Follow up Appointment(s)/Referral(s): Marco Zamora [Primary Care Provider] - 1-2 days Glynn Restrepo [STAFF PHYSICIAN] - 1 Week Activity/Diet/Wound Care/Special Instructions: Asked to be admitted until follow-up Follow-up with primary care provider on discharge Follow-up with pulmonary outpatient in 1 to 2 weeks Continue taking medications as prescribed Discharge Disposition: HOME SELF-CARE
== END 2024-08-15 17:04 | disposition home or self-care (01) ==
LOC: EC 19:07 → 6NMEDSUR 08-14 03:32
PROVIDERS: ADMIT Hospitalist; ATTEND Hospitalist
DX: J44.1 Chronic obstructive pulmonary disease with (acute) exacerbation (principal); J45.901 Unspecified asthma with (acute) exacerbation; J96.11 Chronic respiratory failure with hypoxia; E11.65 Type 2 diabetes mellitus with hyperglycemia; T38.0X5A Adverse effect of glucocorticoids and synthetic analogues, initial encounter; E11.42 Type 2 diabetes mellitus with diabetic polyneuropathy; I10 Essential (primary) hypertension; E78.5 Hyperlipidemia, unspecified; J98.11 Atelectasis; K08.89 Other specified disorders of teeth and supporting structures; E66.01 Morbid (severe) obesity due to excess calories; Z68.42 Body mass index [BMI] 45.0-49.9, adult; Z99.81 Dependence on supplemental oxygen; Z79.51 Long term (current) use of inhaled steroids; Z79.899 Other long term (current) drug therapy; Z79.82 Long term (current) use of aspirin; Z79.52 Long term (current) use of systemic steroids; Z88.8 Allergy status to other drugs, medicaments and biological substances; Z91.048 Other nonmedicinal substance allergy status; Z87.891 Personal history of nicotine dependence; Z11.52 Encounter for screening for COVID-19; Z11.59 Encounter for screening for other viral diseases
CPT/HCPCS: 96376 ×2; 96372; 96361; 96374; 99285; 36415; 94640 ×5; 93005; 83880; 80053; 80048; 83605; 83735; 84484; 85025; 85610; 85730; 83036; 87636; 71046; G0378 ×2; J1644; J2919 ×3

== ENCOUNTER 2024-11-17 23:08 | Observation (INO) | payer BC ==
[2024-11-17] MEDS: NITROGLYCERIN SL TABS 0.4 MG TAB SUBLINGUAL STA (23:54)
[2024-11-17] MEDS: ASPIRIN 81 MG PO STA (23:55)
[2024-11-17] MEDS: SODIUM CHLORIDE 0.9% 500 ML 500 ML IV STA (23:59)
[2024-11-18] MEDS: methylPREDNISolone SOD SUCCI 125 MG/2 ML VIAL IVP ONE
[2024-11-18 00:28] LABS: ALT 14 U/L (4-49); AST 19 U/L (17-59); African American GFR (CKD) >90 (>60 ml/min/1.73 sqM); Albumin 3.9 g/dL (3.5-5.0); Alkaline Phosphatase 63 U/L (38-126); Anion Gap 8 mmol/L; Blood Urea Nitrogen 19 mg/dL (9-20); Calcium 8.9 mg/dL (8.4-10.2); Carbon Dioxide 26 mmol/L (22-30); Chloride 103 mmol/L (98-107); Glucose 117 mg/dL (74-99); Magnesium 1.9 mg/dL (1.6-2.3); Non-African American GFR(CKD) >90 (>60 ml/min/1.73 sqM); Sodium 137 mmol/L (137-145); Total Bilirubin 0.7 mg/dL (0.2-1.3); Total Protein 6.6 g/dL (6.3-8.2)
[2024-11-18 00:31] LABS: INR 0.9 (<1.2)
[2024-11-18] MEDS: IPRATROPIUM-ALBUTEROL 3 ML NEB INHALATION STA (00:49)
--- NOTE | 2024-11-18 00:59 | XR ---
EXAM: XR Chest, 2 Views CLINICAL HISTORY: XR Reason: Chest Pain TECHNIQUE: Frontal and lateral views of the chest. COMPARISON: August 13, 2024 FINDINGS: Lungs: Prominent perihilar bibasilar vascular and interstitial markings, similar to previous. No consolidation. Pleural space: Unremarkable. No pneumothorax. Heart: The cardiac silhouette is mildly enlarged. Mediastinum: Unremarkable. Normal mediastinal contour. Bones/joints: Moderate osteophytosis throughout the mid to lower thoracic spine. No acute fracture. Upper abdomen: Unremarkable as visualized. No pneumoperitoneum under the diaphragm. IMPRESSION: Prominent perihilar bibasilar vascular and interstitial markings, similar to previous. Consider mild CHF versus interstitial infiltrates.
[2024-11-18 01:01] LABS: Basophils # (A) 0.1 k/uL (0-0.2); Basophils % (A) 1 %; Eosinophils # (A) 0.4 k/uL (0-0.7); Eosinophils % (A) 5 %; HCT 47.5 % (39.0-53.0); HGB 15.2 gm/dL (13.0-17.5); Lymphocytes # (A) 2.5 k/uL (1.0-4.8); Lymphocytes % (A) 27 %; MCH 30.8 pg (25.0-35.0); MCV 96.2 fL (80.0-100.0); Mean Platelet Volume 7.5; Monocytes # (A) 0.7 k/uL (0-1.0); Monocytes % (A) 7 %; Neutrophils # (A) 5.5 k/uL (1.3-7.7); Neutrophils % (A) 59 %; Platelet Count 287 k/uL (150-450); RBC 4.94 m/uL (4.30-5.90); RDW 13.7 % (11.5-15.5); WBC 9.4 k/uL (3.8-10.6)
[2024-11-18 02:04] LABS: Influenza A Not Detected (Not Detectd); Influenza B Not Detected (Not Detectd); RSV Not Detected (Not Detectd)
[2024-11-18] MEDS ORDERED: NALOXONE 0.4 MG/ML 1 ML VIAL IV PRN (02:45)
--- NOTE | 2024-11-18 02:52 | ED ---
SOB HPI - General Chief Complaint: Shortness of Breath Stated Complaint: ALEXUS,Chest Pain Time Seen by Provider: 11/17/24 23:21 Source: patient Mode of arrival: wheelchair Limitations: no limitations - History of Present Illness Initial Comments: 64-year-old male with history of asthma, diabetes, hypertension, hyperlipidemia presenting with chief complaint of chest pain and difficulty breathing. Patient reports he has had intermittent chest pain for about a week. States that tonight it was getting worse. Located in the center and left side of his chest with some radiation into the neck and shoulder. Intermittent, comes on at rest. Patient also admits to increased shortness of breath. Patient wears oxygen at home, 3 L. He does breathing treatments every 6 hours and is still had difficulty breathing. States he also feels like he is having some lower extremity swelling. Mitts to some nausea, no vomiting or abdominal pain. No known fever. - Related Data Home Medications Medication Instructions Recorded Confirmed Montelukast Sodium [Singulair] 10 mg PO DAILY 05/18/18 08/14/24 Albuterol Inhaler [Ventolin Hfa 2 puff INHALATION RT-Q4H PRN 02/05/22 08/14/24 Inhaler] Ipratropium-Albuterol Nebulize 3 ml INHALATION RT-QID 05/28/24 08/14/24 [Duoneb 0.5 mg-3 mg/3 ml Soln] Magnesium (Unknown Strength) 1 dose PO DAILY 05/28/24 08/14/24 [place]-3 Fish Oil (Unknown Strength) 1 dose PO DAILY 05/28/24 08/14/24 Vitamin C (Unknown Strength) 1 dose PO DAILY 05/28/24 08/14/24 Vitamin D3 (Unknown Strength) 1 dose PO DAILY 05/28/24 08/14/24 Zinc (Unknown Strength) 1 dose PO DAILY 05/28/24 08/14/24 lisinopriL [Zestril] 20 mg PO HS 05/28/24 08/14/24 Previous Rx's Medication Instructions Recorded Famotidine [Pepcid] 20 mg PO BID 14 Days #28 tab 08/15/24 Fluticasone/Vilanterol [Breo 1 each IH DAILY #1 each 08/15/24 Ellipta 100-25 Mcg Inhalr] Ipratropium-Albuterol Nebulize 3 ml INHALATION RT-Q4H PRN each 08/15/24 [Duoneb 0.5 mg-3 mg/3 ml Soln] guaiFENesin-DM 100-10MG/5ML 10 ml PO Q6HR PRN ml 08/15/24 [Robitussin DM] predniSONE See Taper PO DIRECTED #30 tab 08/15/24 Famotidine [Pepcid] 20 mg PO BID 14 Days #28 tablet 08/16/24 Fluticasone/Vilanterol [Breo 1 each IH DAILY #1 each 08/16/24 Ellipta 100-25 Mcg Inhalr] guaiFENesin [guaiFENesin Oral 0 mg PO Q6H PRN #120 ml 08/16/24 Solution] predniSONE See Taper PO DIRECTED #30 tab 08/16/24 Allergies Allergy/AdvReac Type Severity Reaction Status Date / Time adhesive Allergy Rash/Hives Verified 11/17/24 23:10 Ywhvwvo-SEY-GaO Reductase AdvReac MUSCLE PAIN Verified 11/17/24 23:10 Inhibitor [Qguyrio-Gza-Tmv Reductase Inhibitor] Review of Systems ROS Statement: Those systems with pertinent positive or pertinent negative responses have been documented in the HPI. ROS Other: All systems not noted in ROS Statement are negative. Past Medical History Past Medical History: Asthma, COPD, Diabetes Mellitus, Hyperlipidemia, Hypertension, Osteoarthritis (OA) Additional Past Medical History / Comment(s): Persistent asthma, NIDDM II- arthritis R knee, COVID + History of Any Multi-Drug Resistant Organisms: None Reported Past Surgical History: Hernia Repair Additional Past Surgical History / Comment(s): Umbilical hernia repair Past Anesthesia/Blood Transfusion Reactions: Motion Sickness Past Psychological History: No Psychological Hx Reported Smoking Status: Former smoker Past Alcohol Use History: None Reported Past Drug Use History: None Reported - Past Family History Mother History Unknown: Yes Family Medical History: Cancer Additional Family Medical History / Comment(s): Mother of ovarian cancer at the age of 78yrs. Father History Unknown: Yes Family Medical History: GI Bleed Additional Family Medical History / Comment(s): Father around age 50 from a bleeding ulcer. Brother(s) Family Medical History: No Reported History Additional Family Medical History / Comment(s): The patient has 2 brothers and one from pneumonia at age 59, 1 is alive with history of bariatric surgery. Sister(s) Family Medical History: No Reported History Additional Family Medical History / Comment(s): Patient has 2 sisters and one has history of gallbladder disease. Daughter(s) Family Medical History: Unable to Obtain Additional Family Medical History / Comment(s): Patient has one daughter with no major medical problems. Son(s) Additional Family Medical History / Comment(s): Patient has 2 sons and one has hypertension. General Exam Limitations: no limitations General appearance: alert, in no apparent distress Head exam: Present: atraumatic, normocephalic, normal inspection Eye exam: Present: normal appearance, EOMI Neck exam: Present: normal inspection. Absent: meningismus Respiratory exam: Present: wheezes. Absent: respiratory distress, rales, rhonchi, stridor Cardiovascular Exam: Present: regular rate, normal rhythm, normal heart sounds. Absent: systolic murmur, diastolic murmur, rubs, gallop, clicks Neurological exam: Present: alert, oriented X3 Psychiatric exam: Present: normal affect, normal mood Skin exam: Present: normal color Course Vital Signs 11/17/24 11/17/24 11/17/24 23:10 23:20 23:25 Temperature 98.9 F Pulse Rate 115 H 98 Respiratory 21 22 22 Rate Blood Pressure 172/103 157/98 O2 Sat by Pulse 99 99 Oximetry 11/18/24 11/18/24 11/18/24 00:49 00:56 01:00 Temperature Pulse Rate 90 90 95 Respiratory 18 18 18 Rate Blood Pressure 137/84 O2 Sat by Pulse 97 Oximetry Medical Decision Making - Medical Decision Making Was pt. sent in by a medical professional or institution (, PA, SYSTEMS TECHNICIAN, urgent care, hospital, or intermediate...) When possible be specific @ -No Did you speak to anyone other than the patient for history (EMS, parent, family, police, friend...)? What history was obtained from this source @ -No Did you review nursing and triage notes (agree or disagree)? Why? @ -I reviewed and agree with nursing and triage notes Were old charts reviewed (outside hosp., previous admission, EMS record, old EKG, old radiological studies, urgent care reports/EKG's, intermediate records)? Report findings @ -No old charts were reviewed Differential Diagnosis (chest pain, altered mental status, abdominal pain women, abdominal pain men, vaginal bleeding, weakness, fever, dyspnea, syncope, he adache, dizziness, GI bleed, back pain, seizure, CVA, palpatations, mental health, musculoskeletal)? @ -MDM Differential Chest Pain: Stable Angina, Unstable Angina, STEMI, NSTEMI Aortic Dissection, Pneumothorax, Musculoskeletal, Esophageal Spasm GERD, Cholecystitis, Pancreatitis, Zoster This is not meant to be an all-inclusive list. EKG interpreted by me (3pts min.). @ -EKG shows sinus tachycardia with occasional supraventricular premature complexes. Ventricular rate 102. RI interval 177. QRS 104. QT 336. QTc 395. X-rays interpreted by me (1pt min.). @ -Chest x-ray shows prominent perihilar bibasilar vascular and interstitial markings similar to previous. Consider mild CHF versus interstitial infiltrates CT interpreted by me (1pt min.). @ -None done U/S interpreted by me (1pt. min.). @ -None done What testing was considered but not performed or refused? (CT, X-rays, U/S, labs)? Why? @ -None What meds were considered but not given or refused? Why? @ -None Did you discuss the management of the patient with other professionals (professionals i.e. , PA, SYSTEMS TECHNICIAN, lab, RT, psych nurse, school social worker, rn utilization management um, teacher, chief contract officer, pillowcase maker)? Give summary @ -My attending spoke with the [facility] provider on-call accepts admission Was smoking cessation discussed for >3mins.? @ -No Was critical care preformed (if so, how long)? @ -No Were there social determinants of health that impacted care today? How? (Homelessness, low income, unemployed, alcoholism, drug addiction, transportation, low edu. Level, literacy, decrease access to med. care, skilled nursing, rehab)? @ -No Was there de-escalation of care discussed even if they declined (Discuss DNR or withdrawal of care, Hospice)? DNR status @ -No What co-morbidities impacted this encounter? (DM, HTN, Smoking, COPD, CAD, Cancer, CVA, ARF, Chemo, Hep., AIDS, mental health diagnosis, sleep apnea, morbid obesity)? @ -Asthma, hypertension, hyperlipidemia, diabetes, morbid obesity Was patient admitted / discharged? Hospital course, mention meds given and route, prescriptions, significant lab abnormalities, going to OR and other pertinent info. @ -64-year-old male presenting with chief complaint of chest pain and difficulty breathing. History and physical examination are conducted. Lab work is grossly unremarkable. Troponin is negative and BNP is less than 20. EKG shows no acute ischemic findings. Patient treated with aspirin and nitro as well as DuoNeb and Solu-Medrol. On reassessment he reports some improvement. He will be admitted for chest pain and asthma exacerbation. Patient is agreeable with this plan. I discussed this case with my attending Dr. Chang Undiagnosed new problem with uncertain prognosis? @ -No Drug Therapy requiring intensive monitoring for toxicity (Heparin, Nitro, In sulin, Cardizem)? @ -No Were any procedures done? @ -No Diagnosis/symptom? @ -Chest pain Acute, or Chronic, or Acute on Chronic? @ -Acute Uncomplicated (without systemic symptoms) or Complicated (systemic symptoms)? @ -Complicated Side effects of treatment? @ -No Exacerbation, Progression, or Severe Exacerbation? @ -No Poses a threat to life or bodily function? How? (Chest pain, USA, ID, pneumonia, PE, COPD, DKA, ARF, appy, cholecystitis, CVA, Diverticulitis, Homicidal, Suicidal, threat to staff... and all critical care pts) @ -Yes Diagnosis/symptom? @Asthma exacerbation Acute, or Chronic, or Acute on Chronic? @Acute on chronic Uncomplicated (without systemic symptoms) or Complicated (systemic symptoms)? @Complicated Side effects of treatment? @None Exacerbation, Progression, or Severe Exacerbation] @Exacerbation Poses a threat to life or bodily function? @Yes - Lab Data Result diagrams: 11/17/24 23:49 11/17/24 23:49 Lab Results 11/17/24 11/17/24 11/17/24 Range/Units 23:49 23:49 23:49 WBC 9.4 (3.8-10.6) k/uL RBC 4.94 (4.30-5.90) m/uL Hgb 15.2 (13.0-17.5) gm/dL Hct 47.5 (39.0-53.0) % MCV 96.2 (80.0-100.0) fL MCH 30.8 (25.0-35.0) pg MCHC 32.0 (31.0-37.0) g/dL RDW 13.7 (11.5-15.5) % Plt Count 287 (150-450) k/uL MPV 7.5 Neutrophils % 59 % Lymphocytes % 27 % Monocytes % 7 % Eosinophils % 5 % Basophils % 1 % Neutrophils # 5.5 (1.3-7.7) k/uL Lymphocytes # 2.5 (1.0-4.8) k/uL Monocytes # 0.7 (0-1.0) k/uL Eosinophils # 0.4 (0-0.7) k/uL Basophils # 0.1 (0-0.2) k/uL PT 10.0 (10.0-12.5) sec INR 0.9 (<1.2) APTT 23.0 (22.0-30.0) sec Sodium 137 (137-145) mmol/L Potassium 4.0 (3.5-5.1) mmol/L Chloride 103 (98-107) mmol/L Carbon Dioxide 26 (22-30) mmol/L Anion Gap 8 mmol/L BUN 19 (9-20) mg/dL Creatinine 0.74 (0.66-1.25) mg/dL Est GFR (CKD-EPI)AfAm >90 (>60 ml/min/1.73 sqM) Est GFR (CKD-EPI)NonAf >90 (>60 ml/min/1.73 sqM) Glucose 117 H (74-99) mg/dL Calcium 8.9 (8.4-10.2) mg/dL Magnesium 1.9 (1.6-2.3) mg/dL Total Bilirubin 0.7 (0.2-1.3) mg/dL AST 19 (17-59) U/L ALT 14 (4-49) U/L Alkaline Phosphatase 63 (38-126) U/L Troponin I (0.000-0.034) ng/mL NT-Pro-B Natriuret Pep pg/mL Total Protein 6.6 (6.3-8.2) g/dL Albumin 3.9 (3.5-5.0) g/dL Influenza Type A (PCR) (Not Detectd) Influenza Type B (PCR) (Not Detectd) RSV (PCR) (Not Detectd) SARS-CoV-2 (PCR) (Not Detectd) 11/17/24 11/18/24 11/18/24 Range/Units 23:49 01:00 01:00 WBC (3.8-10.6) k/uL RBC (4.30-5.90) m/uL Hgb (13.0-17.5) gm/dL Hct (39.0-53.0) % MCV (80.0-100.0) fL MCH (25.0-35.0) pg MCHC (31.0-37.0) g/dL RDW (11.5-15.5) % Plt Count (150-450) k/uL MPV Neutrophils % % Lymphocytes % % Monocytes % % Eosinophils % % Basophils % % Neutrophils # (1.3-7.7) k/uL Lymphocytes # (1.0-4.8) k/uL Monocytes # (0-1.0) k/uL Eosinophils # (0-0.7) k/uL Basophils # (0-0.2) k/uL PT (10.0-12.5) sec INR (<1.2) APTT (22.0-30.0) sec Sodium (137-145) mmol/L Potassium (3.5-5.1) mmol/L Chloride (98-107) mmol/L Carbon Dioxide (22-30) mmol/L Anion Gap mmol/L BUN (9-20) mg/dL Creatinine (0.66-1.25) mg/dL Est GFR (CKD-EPI)AfAm (>60 ml/min/1.73 sqM) Est GFR (CKD-EPI)NonAf (>60 ml/min/1.73 sqM) Glucose (74-99) mg/dL Calcium (8.4-10.2) mg/dL Magnesium (1.6-2.3) mg/dL Total Bilirubin (0.2-1.3) mg/dL AST (17-59) U/L ALT (4-49) U/L Alkaline Phosphatase (38-126) U/L Troponin I <0.012 (0.000-0.034) ng/mL NT-Pro-B Natriuret Pep <20 pg/mL Total Protein (6.3-8.2) g/dL Albumin (3.5-5.0) g/dL Influenza Type A (PCR) Not Detected (Not Detectd) Influenza Type B (PCR) Not Detected (Not Detectd) RSV (PCR) Not Detected (Not Detectd) SARS-CoV-2 (PCR) Not Detected (Not Detectd) Disposition Clinical Impression: Chest pain, Asthma Disposition: ADMITTED IP TO THIS HOSP Condition: Fair Referrals: Marco Zamora [Primary Care Provider] - 1-2 days Time of Disposition: 02:52
[2024-11-18] MEDS ORDERED: DOBUTamine DRIP for NUC MED 500 MG in DEXTROSE/WATER 1 250ML.BAG IV PRN (07:40)
[2024-11-18] MEDS: IPRATROPIUM-ALBUTEROL 3 ML NEB INHALATION SCH (08:36)
--- NOTE | 2024-11-18 09:33 | P.CRDCN ---
History of Present Illness History of present illness: HISTORY OF PRESENT ILLNESS: This is a 64-year-old male with a past medical history significant for hypertension, hyperlipidemia, diabetes, and obesity. Patient follows in the office with Dr. Del Toro. We have been asked to see the patient in consultation for chest pain. Patient examined at the bedside in the emergency room. Patient reports he has been having chest tightness for the past couple weeks. He reports he had 1 episode that went into his arm. He states yesterday he checked his blood pressure and it was elevated which concerned him so he decided to come to the emergency room for further evaluation. He denies any chest pain or shortness of breath at the time of examination. DIAGNOSTICS: - EKG reveals sinus mechanism with no signs of acute ischemia. - Chest xray prominent perihilar bibasilar vascular and interstitial markings similar to previous.. - Laboratory data: WBC 9.4. Hemoglobin 15.2. Platelet count 287. Sodium 137. Potassium 4.0. BUN 19. Creatinine 0.74. Magnesium 1.9. Troponin negative x 3. proBNP less than 20. - Current home cardiac medications include lisinopril 20 mg daily. - Most recent echocardiogram obtained in October 2022 revealed ejection fraction 55 to 60% - Patient underwent dobutamine stress echo in April 2023 which was negative for ischemia REVIEW OF SYSTEMS: At the time of my exam: CONSTITUTIONAL: Denies fever or chills. HEENT: Denies blurred vision, vision changes, or eye pain. Denies hemoptysis CARDIOVASCULAR: Denies chest pain. Denies orthopnea. Denies PND. Denies palpitations RESPIRATORY: Denies shortness of breath. GASTROINTESTINAL: Denies abdominal pain. Denies nausea or vomiting. HEMATOLOGIC: Denies bleeding disorders. GENITOURINARY: Denies any blood in urine. SKIN: Denies pruitis. Denies rash. PHYSICAL EXAM: VITAL SIGNS: Reviewed. GENERAL: Well-developed in no acute distress. HEENT: Head is normocephalic. Pupils are equal, round. Sclerae anicteric. Mucous membranes of the mouth are moist. Neck supple. No JVD or thyromegaly LUNGS: Respirations even and unlabored. Lungs essentially clear to auscultation bilaterally. HEART: Regular rate and rhythm. S1 and S2 heard. ABDOMEN: Soft. Nondistended. Nontender. EXTREMITIES: Normal range of motion. No clubbing or cyanosis. Peripheral pulses intact. No lower extremity edema NEUROLOGIC: Awake and alert. Oriented x 3. ASSESSMENT: Chest pain, troponin negative x 3 Hypertension Hyperlipidemia with previous statin intolerance Diabetes Obesity: BMI 34.6 PLAN: An acute coronary event has been ruled out Obtain 2D echo to assess cardiac structure and function Decrease aspirin to 81 mg daily Add Pravachol 40 mg at night Resume home cardiac medications Patient to undergo dobutamine stress echo today If negative, he may be discharged home from a cardiac standpoint Patient to follow-up postdischarge with Dr. Del Toro Nurse practitioner note has been reviewed by physician. Signing provider agrees with the documented findings, assessment, and plan of care documented by PERSONNEL ASSOCIATE as a scribe. Past Medical History Past Medical History: Asthma, COPD, Diabetes Mellitus, Hyperlipidemia, Hypertension, Osteoarthritis (OA) Additional Past Medical History / Comment(s): Persistent asthma, NIDDM II- arthritis R knee, COVID + History of Any Multi-Drug Resistant Organisms: None Reported Past Surgical History: Hernia Repair Additional Past Surgical History / Comment(s): Umbilical hernia repair Past Anesthesia/Blood Transfusion Reactions: Motion Sickness Past Psychological History: No Psychological Hx Reported Smoking Status: Former smoker Past Alcohol Use History: None Reported Past Drug Use History: None Reported - Past Family History Mother History Unknown: Yes Family Medical History: Cancer Additional Family Medical History / Comment(s): Mother of ovarian cancer at the age of 78yrs. Father History Unknown: Yes Family Medical History: GI Bleed Additional Family Medical History / Comment(s): Father around age 50 from a bleeding ulcer. Brother(s) Family Medical History: No Reported History Additional Family Medical History / Comment(s): The patient has 2 brothers and one from pneumonia at age 59, 1 is alive with history of bariatric surgery. Sister(s) Family Medical History: No Reported History Additional Family Medical History / Comment(s): Patient has 2 sisters and one has history of gallbladder disease. Daughter(s) Family Medical History: Unable to Obtain Additional Family Medical History / Comment(s): Patient has one daughter with no major medical problems. Son(s) Additional Family Medical History / Comment(s): Patient has 2 sons and one has hypertension. Medications and Allergies Home Medications Medication Instructions Recorded Confirmed Type Montelukast Sodium [Singulair] 10 mg PO DAILY 05/18/18 11/18/24 History Albuterol Inhaler [Ventolin Hfa 2 puff INHALATION RT-Q4H PRN 02/05/22 11/18/24 History Inhaler] Ipratropium-Albuterol Nebulize 3 ml INHALATION RT-QID 05/28/24 11/18/24 History [Duoneb 0.5 mg-3 mg/3 ml Soln] Magnesium (Unknown Strength) 1 dose PO DAILY 05/28/24 11/18/24 History [place]-3 Fish Oil (Unknown Strength) 1 dose PO DAILY 05/28/24 11/18/24 History Vitamin C (Unknown Strength) 1 dose PO DAILY 05/28/24 11/18/24 History Vitamin D3 (Unknown Strength) 1 dose PO DAILY 05/28/24 11/18/24 History Zinc (Unknown Strength) 1 dose PO DAILY 05/28/24 11/18/24 History lisinopriL [Zestril] 20 mg PO DAILY 05/28/24 11/18/24 History Cetirizine HCl/Pseudoephedrine 1 tab PO Q12H PRN 11/18/24 11/18/24 History [Zyrtec-D ER 5 mg-120 mg Tablet] Fluticasone Propionate 220 Mcg 2 puff INHALATION RT-BID 11/18/24 11/18/24 History [Flovent 220 Mcg Inhaler] Allergies Allergy/AdvReac Type Severity Reaction Status Date / Time adhesive Allergy Rash/Hives Verified 11/18/24 07:45 Siwuueh-VUL-AeP Reductase AdvReac MUSCLE PAIN Verified 11/18/24 07:45 Inhibitor [Ddwomyy-Qci-Gpb Reductase Inhibitor] Physical Exam Vitals: Vital Signs Temp Pulse Resp BP Pulse Ox 11/18/24 07:32 16 11/18/24 06:00 97.8 F 82 18 137/91 97 11/18/24 04:00 93 18 129/84 96 11/18/24 01:00 95 18 137/84 97 11/18/24 00:56 90 18 11/18/24 00:49 90 18 11/17/24 23:25 98 22 157/98 99 11/17/24 23:20 22 11/17/24 23:10 98.9 F 115 H 21 172/103 99 Intake and Output 11/17/24 11/18/24 11/18/24 22:59 06:59 14:59 Other: Weight 106.141 kg Results 11/17/24 23:49 11/17/24 23:49 Cardiac Enzymes 11/17/24 11/17/24 11/18/24 Range/Units 23:49 23:49 03:06 AST 19 (17-59) U/L Troponin I <0.012 <0.012 (0.000-0.034) ng/mL 11/18/24 Range/Units 06:58 AST (17-59) U/L Troponin I <0.012 (0.000-0.034) ng/mL Coagulation 11/17/24 Range/Units 23:49 PT 10.0 (10.0-12.5) sec APTT 23.0 (22.0-30.0) sec CBC 11/17/24 Range/Units 23:49 WBC 9.4 (3.8-10.6) k/uL RBC 4.94 (4.30-5.90) m/uL Hgb 15.2 (13.0-17.5) gm/dL Hct 47.5 (39.0-53.0) % Plt Count 287 (150-450) k/uL Comprehensive Metabolic Panel 11/17/24 Range/Units 23:49 Sodium 137 (137-145) mmol/L Potassium 4.0 (3.5-5.1) mmol/L Chloride 103 (98-107) mmol/L Carbon Dioxide 26 (22-30) mmol/L BUN 19 (9-20) mg/dL Creatinine 0.74 (0.66-1.25) mg/dL Glucose 117 H (74-99) mg/dL Calcium 8.9 (8.4-10.2) mg/dL AST 19 (17-59) U/L ALT 14 (4-49) U/L Alkaline Phosphatase 63 (38-126) U/L Total Protein 6.6 (6.3-8.2) g/dL Albumin 3.9 (3.5-5.0) g/dL Current Medications Generic Name Dose Route Start Last Admin Trade Name Freq PRN Reason Stop Dose Admin Albuterol/Ipratropium 3 ml 11/18/24 02:45 Ipratropium-Albuterol 3 Ml Neb INHALATION RT-Q2H PRN Shortness Of Breath Or Wheezing Albuterol/Ipratropium 3 ml 11/18/24 08:00 Ipratropium-Albuterol 3 Ml Neb INHALATION RT-QID INGRID Dobutamine HCl/Dextrose 500 mg 250 mls @ 31.842 mls/hr 11/18/24 07:40 / IV Solution IV 11/18/24 11:40 .[id number] PRN Per Protocol Protocol 10 MCG/KG/MIN Naloxone HCl 0.2 mg 11/18/24 02:45 Naloxone 0.4 Mg/Ml 1 Ml Vial IV Q2M PRN Opioid Reversal Intake and Output 11/17/24 11/18/24 11/18/24 22:59 06:59 14:59 Other: Weight 106.141 kg 11/17/24 23:49 11/17/24 23:49
[2024-11-18] MEDS: ASPIRIN 81 MG PO SCH (14:48)
[2024-11-18] MEDS: lisinopriL 20 MG TAB PO SCH (14:48)
--- NOTE | 2024-11-18 17:02 | CA ---
Dobutamine Stress Echocardiogram Report Joni Brown Age: 64 Gender: M : 1960 Exam Date: 11/18/2024 12:11 Exam Location: [facility] Ordering Physician: Myra Anderson Referring Physician: [id number] Ventura Milk Collector: CAITLIN Technologist: Ht (in): 69 Wt (lb): 234 Procedure CPT: Indication: CP ICD-9 Codes: Rhythm: Patient History: Chest pain and shortness of breath Cardiac Medications: Medications in past 24 hours: Contrast: Definity Total Dose (mL): 4 Stress Results Protocol: Dobutamine Peak Dose (???g/kg/min): 20 Duration (min:sec): Atropine:(mg) Target HR: 132 Double Product: [id number] Resting HR: 93 Resting BP: 151 / 40 Peak HR: 139 Peak BP: 201 / 66 Max Predicted HR: 155 90 % Max Predicted HR Stress Summary: BP Response: Reason for Termination: Exceeded target heart rate (85% max predicted) Cardiac Symptoms: No symptoms ECG Analysis Resting EKG: Normal sinus rhythm normal axis normal intervals Stress EKG: Patient was given intravenous dobutamine per protocol achieving 85% of predicted maximal heart rate without chest pain or diagnostic ST segment depression Arrhythmia: Echo Analysis Base Echo Analysis: Normal left ventricular size wall motion and systolic function contrast was used to enhance endocardial definition Low Echo Anaylsis: Normal Peak Echo Analysis: Normal hyperdynamic response Recovery Echo: Normal MEASUREMENTS (Male/Female) Normal Values CONCLUSIONS Negative stress test by EKG criteria Negative dobutamine stress echo Dr. Foreign Oneill MD (Electronically Signed) Final Date: 18 November 2024 17:02
--- NOTE | 2024-11-18 17:03 | CA ---
Transthoracic Echo Report Name: Joni Brown Age: 64 Gender: M : 1960 Exam Date: 11/18/2024 13:27 Exam Location: [facility] Ht (in): 69 Wt (lb): 234 Ordering Physician: Myra Anderson Attending/Referring Phys: [id number], Justin Offal Roller Kameron Nelson RDCS Procedure CPT: Indications: LV function, CP Cardiac Hx: Technical Quality: Good Contrast 1: Definity Total Dose (mL): 2 Contrast 2: Total Dose (mL): MEASUREMENTS (Male / Female) Normal Values 2D ECHO LV Diastolic Diameter PLAX 4.7 cm 4.2 - 5.9 / 3.9 - 5.3 cm LV Systolic Diameter PLAX 3.0 cm IVS Diastolic Thickness 1.2 cm 0.6 - 1.0 / 0.6 - 0.9 cm LVPW Diastolic Thickness 1.3 cm 0.6 - 1.0 / 0.6 - 0.9 cm LV Relative Wall Thickness 0.5 RV Internal Dim ED PLAX 2.9 cm LVOT Diameter 2.2 cm LA Systolic Diameter LX 4.2 cm 3.0 - 4.0 / 2.7 - 3.8 cm LV Diastolic Volume MOD 4C 110.9 cm??? LV Diastolic Length 4C 9.1 cm LV Diastolic Volume MOD 2C 79.8 cm??? LV Systolic Volume MOD 2C 31.1 cm??? LV Ejection Fraction MOD 2C 61.0 % LV Cardiac Index MOD 2C 2105.1 cm???/min???m??? LV Diastolic Length 2C 8.8 cm LV Systolic Length 2C 7.2 cm LA Volume 57.1 cm??? 18 - 58 / 22 - 52 cm??? LA Volume Index 24.7 cm???/m??? 16 - 28 cm???/m??? DOPPLER MV Peak Velocity 137.0 cm/s MV Peak Gradient 7.5 mmHg MV Mean Velocity 76.9 cm/s MV Mean Gradient 2.8 mmHg MV Velocity Time Integral 16.9 cm MV Area PHT 4.4 cm??? Mitral E Point Velocity 50.8 cm/s Mitral A Point Velocity 97.3 cm/s Mitral E to A Ratio 0.5 MV Deceleration Time 217.7 ms TR Peak Velocity 169.9 cm/s TR Peak Gradient 11.5 mmHg Right Atrial Pressure 10.0 mmHg Pulmonary Artery Systolic Pressu 21.5 mmHg Right Ventricular Systolic Press 21.5 mmHg FINDINGS Left Ventricle Left ventricular ejection fraction is estimated at 60-65%. Mildly increased septal wall thickness. Normal left ventricular systolic function with no obvious regional wall motion abnormalities. Right Ventricle Normal right ventricular size and function. Right ventricular systolic pressure within normal limits. Right Atrium Normal right atrial size. Left Atrium Mildly increased left atrial diameter. Mitral Valve Structurally normal mitral valve. No mitral stenosis, regurgitation or prolapse. Aortic Valve Trileaflet aortic valve. No aortic valve stenosis or regurgitation. Tricuspid Valve Structurally normal tricuspid valve. No tricuspid stenosis. Trace tricuspid regurgitation. Pulmonic Valve Pulmonic valve not well visualized. No pulmonic stenosis. Trace pulmonic regurgitation. Pericardium No pericardial effusion. No pleural effusion. Aorta Normal size aortic root and proximal ascending aorta. CONCLUSIONS Normal LV function Previewed by: Dr. Foreign Oneill MD (Electronically Signed) Final Date: 18 November 2024 17:03
[2024-11-18] MEDS: PRAVASTATIN SODIUM 40 MG TAB PO SCH (20:14)
[2024-11-18] MEDS ORDERED: ALBUTEROL HFA INHALER INHALATION PRN (20:18)
[2024-11-18] MEDS ORDERED: ACETAMINOPHEN TAB 325 MG TAB PO PRN (21:00)
[2024-11-18] MEDS: methylPREDNISolone SOD SUCCI 125 MG/2 ML VIAL IV STA (21:29)
[2024-11-18] MEDS: MONTELUKAST 10 MG TAB PO SCH (21:30)
--- NOTE | 2024-11-19 01:10 | P.HPIM ---
History of Present Illness H&P Date: 11/18/24 Chief Complaint: SOB Mr. Brown is a 64-year-old male with a past medical history of COPD, hypertension, hyperlipidemia, restless leg syndrome, type 2 diabetes mellitus, morbid obesity coming into the ER with a chief complaint of difficulty in breathing that has been going on for 2 to 3 days. Patient states that he was feeling tightness in his chest and could not breathe. He denied associated dizziness or palpitations. Patient denied having any fevers chills or rigors. No sick contacts. Patient denied having any swelling of his lower extremities. Patient denied having any other associated symptoms. In the ER at the time of admission patient vital signs have been stable. He had a troponin checked less than 0.012 x 3. Tested negative for influenza RSV and COVID. EKG within normal limits. Electrolytes and CBC panel within normal limits. Patient was evaluated by cardiology who recommended a dobutamine stress echo. Patient underwent dobutamine stress echo was negative for any inducible ischemia. Review of Systems CONSTITUTIONAL: No fever, no malaise, no fatigue. HEENT: No recent visual problems or hearing problems. Denied any sore throat. CARDIOVASCULAR: No orthopnea, PND, no palpitations, no syncope. PULMONARY: as per HPI GASTROINTESTINAL: No diarrhea, no nausea, no vomiting, no abdominal pain. NEUROLOGICAL: No headaches, no weakness, no numbness. HEMATOLOGICAL: Denies any bleeding or petechiae. GENITOURINARY: Denies any burning micturition, frequency, or urgency. MUSCULOSKELETAL/RHEUMATOLOGICAL: multiple joint OA ENDOCRINE: Denies any polyuria or polydipsia. Past Medical History Past Medical History: Asthma, COPD, Diabetes Mellitus, Hyperlipidemia, Hyperten sidney, Osteoarthritis (OA) Additional Past Medical History / Comment(s): Persistent asthma, NIDDM II- arthritis R knee, COVID + History of Any Multi-Drug Resistant Organisms: None Reported Past Surgical History: Hernia Repair Additional Past Surgical History / Comment(s): Umbilical hernia repair, mole removal Past Anesthesia/Blood Transfusion Reactions: Motion Sickness Past Psychological History: No Psychological Hx Reported Additional Psychological History / Comment(s): Pt resides in a home and his brother lives in the same building. He has a glucometer. He has a nebulizer. He drives. He has a pulsosimetor. 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 Smoking Status: Former smoker Past Alcohol Use History: None Reported Additional Past Alcohol Use History / Comment(s): Pt started smoking in 1976 and quit [id number] Past Drug Use History: None Reported Additional Drug Use History / Comment(s): Patient quit smoking about 40 years ago, after 4 years of use, no alcohol intake, has nebulizer. 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 Father History Unknown: Yes Family Medical History: GI Bleed Additional Family Medical History / Comment(s): Father around age 50 from a bleeding ulcer. Brother(s) Family Medical History: No Reported History Additional Family Medical History / Comment(s): The patient has 2 brothers and one from pneumonia at age 59, 1 is alive with history of bariatric surgery. Sister(s) Family Medical History: No Reported History Additional Family Medical History / Comment(s): Patient has 2 sisters and one has history of gallbladder disease. Daughter(s) Family Medical History: Unable to Obtain Additional Family Medical History / Comment(s): Patient has one daughter with no major medical problems. Son(s) Additional Family Medical History / Comment(s): Patient has 2 sons and one has hypertension. Medications and Allergies Home Medications Medication Instructions Recorded Confirmed Type Montelukast Sodium [Singulair] 10 mg PO DAILY 05/18/18 11/18/24 History Albuterol Inhaler [Ventolin Hfa 2 puff INHALATION RT-Q4H PRN 02/05/22 11/18/24 History Inhaler] Ipratropium-Albuterol Nebulize 3 ml INHALATION RT-QID 05/28/24 11/18/24 History [Duoneb 0.5 mg-3 mg/3 ml Soln] Magnesium (Unknown Strength) 1 dose PO DAILY 05/28/24 11/18/24 History [place]-3 Fish Oil (Unknown Strength) 1 dose PO DAILY 05/28/24 11/18/24 History Vitamin C (Unknown Strength) 1 dose PO DAILY 05/28/24 11/18/24 History Vitamin D3 (Unknown Strength) 1 dose PO DAILY 05/28/24 11/18/24 History Zinc (Unknown Strength) 1 dose PO DAILY 05/28/24 11/18/24 History lisinopriL [Zestril] 20 mg PO DAILY 05/28/24 11/18/24 History Cetirizine HCl/Pseudoephedrine 1 tab PO Q12H PRN 11/18/24 11/18/24 History [Zyrtec-D ER 5 mg-120 mg Tablet] Fluticasone Propionate 220 Mcg 2 puff INHALATION RT-BID 11/18/24 11/18/24 History [Flovent 220 Mcg Inhaler] Allergies Allergy/AdvReac Type Severity Reaction Status Date / Time adhesive Allergy Rash/Hives Verified 11/18/24 07:45 Tstftrp-MVV-TiY Reductase AdvReac MUSCLE PAIN Verified 11/18/24 07:45 Inhibitor [Gbornkw-Lnj-Msv Reductase Inhibitor] Physical Exam Vitals: Vital Signs Temp Pulse Pulse Pulse Resp BP BP 11/18/24 20:41 99 18 11/18/24 20:35 97 18 11/18/24 19:25 98.1 F 97 20 133/76 11/18/24 19:08 98.0 F 112 H 18 111/59 11/18/24 17:41 98.0 F 112 H 17 111/59 11/18/24 15:44 104 H 11/18/24 15:27 106 H 11/18/24 14:52 98.0 F 101 H 18 136/92 11/18/24 11:41 96 11/18/24 11:29 98 11/18/24 09:45 81 17 11/18/24 08:51 88 11/18/24 08:36 86 11/18/24 07:32 16 11/18/24 06:00 97.8 F 82 18 137/91 11/18/24 05:55 97.6 F 92 19 137/91 11/18/24 04:00 93 18 129/84 11/18/24 01:00 95 18 137/84 11/18/24 00:56 90 18 11/18/24 00:49 90 18 11/17/24 23:25 98 22 157/98 11/17/24 23:20 22 11/17/24 23:10 98.9 F 115 H 21 172/103 Pulse Ox 11/18/24 20:41 11/18/24 20:35 11/18/24 19:25 99 11/18/24 19:08 95 11/18/24 17:41 95 11/18/24 15:44 11/18/24 15:27 11/18/24 14:52 98 11/18/24 11:41 11/18/24 11:29 11/18/24 09:45 11/18/24 08:51 11/18/24 08:36 11/18/24 07:32 11/18/24 06:00 97 11/18/24 05:55 94 L 11/18/24 04:00 96 11/18/24 01:00 97 11/18/24 00:56 11/18/24 00:49 11/17/24 23:25 99 11/17/24 23:20 11/17/24 23:10 99 Intake and Output 11/18/24 11/18/24 11/18/24 06:59 14:59 22:59 Intake Total 591 Balance 591 Intake: Oral 591 Other: # Voids 1 Weight 106.141 kg GENERAL: Tno acute distress. M obese on 3 lt of Oxygen HEENT: Pupils are round and equally reacting to ligh CARDIOVASCULAR: S1 and S2 present. No murmurs, rubs, or gallops. PULMONARY: Bilateral wheezing - end expiratory ABDOMEN: Soft, mild suprapubic tenderness and left upper quadrant tenderness , nondistended, normoactive bowel sounds. MUSCULOSKELETAL: No joint swelling or deformity. EXTREMITIES: No cyanosis, clubbing, or pedal edema. NEUROLOGICAL: Gross neurological examination did not reveal any focal deficits. SKIN: No rashes. no petechiae. Results CBC & Chem 7: 11/17/24 23:49 11/17/24 23:49 Labs: Abnormal Lab Results - Last 24 Hours (Table) 11/17/24 Range/Units 23:49 Glucose 117 H (74-99) mg/dL Thrombosis Risk Factor Assmnt - Choose All That Apply Any of the Below Risk Factors Present?: Yes Each Factor Represents 1 point: Obesity (BMI >25), Swollen legs (current) Other Risk Factors: Yes Each Risk Factor Represents 2 Points: Age 61-74 years Other congenital or acquired thrombophilia - If yes, enter type in comment: No Thrombosis Risk Factor Assessment Total Risk Factor Score: 4 Thrombosis Risk Factor Assessment Level: Moderate Risk Assessment and Plan Assessment: ASSESSMENT ASSESSMENT Acute on chronic hypoxic respiratory failure Acute COPD exacerbation Chronic hypoxemic respiratory failure on 3 L of oxygen Hypertension Hyperlipidemia Type 2 diabetes mellitus Obstructive sleep apnea Morbid obesity Multiple joint osteoarthritis PLAN: Patient was admitted with difficulty in breathing had negative troponins and EKG. Due to multiple risk factors patient underwent a dobutamine stress echo that was negative for any inducible ischemia. As the patient has bilateral wheezing he is admitted for acute COPD exacerbation. Patient started on steroids and breathing treatments. His home medications have been resumed. Fu rther recommendations depending on the progress of the patient.
[2024-11-19] MEDS: IPRATROPIUM-ALBUTEROL 3 ML NEB INHALATION PRN (01:45)
[2024-11-19 04:55] LABS: Glucose,Whole Blood 302 mg/dL (70-110)
[2024-11-19] MEDS ORDERED: DEXTROSE 50% SYRINGE 50 ML IVP PRN ×2 (05:02)
[2024-11-19] MEDS: INSULIN LISPRO (HumaLOG) 100 UNIT/ML 10 mL VL SQ SCH (05:14)
[2024-11-19 05:50] LABS: Glucose,Whole Blood 282 mg/dL (70-110)
[2024-11-19 07:47] VITALS: RESP 16
[2024-11-19] MEDS ORDERED: IPRATROPIUM-ALBUTEROL 3 ML NEB INHALATION SCH (08:00)
[2024-11-19] MEDS ORDERED: MAGNESIUM PO SCH (09:00)
[2024-11-19] MEDS: FLUTICASONE 220 MCG INHALER INHALATION SCH (09:13)
--- NOTE | 2024-11-19 09:55 | P.PN ---
Subjective HISTORY OF PRESENT ILLNESS: This is a 64-year-old male with a past medical history significant for hypertension, hyperlipidemia, diabetes, and obesity. Patient follows in the office with Dr. Del Toro. We have been asked to see the patient in consultation for chest pain. Patient examined at the bedside in the emergency room. Patient reports he has been having chest tightness for the past couple weeks. He reports he had 1 episode that went into his arm. He states yesterday he checked his blood pressure and it was elevated which concerned him so he decided to come to the emergency room for further evaluation. He denies any chest pain or shortness of breath at the time of examination. DIAGNOSTICS: - EKG reveals sinus mechanism with no signs of acute ischemia. - Chest xray prominent perihilar bibasilar vascular and interstitial markings similar to previous.. - Laboratory data: WBC 9.4. Hemoglobin 15.2. Platelet count 287. Sodium 137. Potassium 4.0. BUN 19. Creatinine 0.74. Magnesium 1.9. Troponin negative x 3. proBNP less than 20. - Current home cardiac medications include lisinopril 20 mg daily. - Most recent echocardiogram obtained in October 2022 revealed ejection fraction 55 to 60% - Patient underwent dobutamine stress echo in April 2023 which was negative for ischemia 11/19/2024 Patient examined this morning to bedside. Patient denies chest pain or pressure. Denies shortness of breath. Echocardiogram performed revealing ejection fraction 60 to 65% with no obvious regional wall motion abnormalities. He underwent dobutamine stress echo yesterday which was negative for ischemia PHYSICAL EXAM: VITAL SIGNS: Reviewed. GENERAL: Well-developed in no acute distress. HEENT: Head is normocephalic. Pupils are equal, round. Sclerae anicteric. Mucous membranes of the mouth are moist. Neck supple. No JVD or thyromegaly LUNGS: Respirations even and unlabored. Lungs essentially clear to auscultation bilaterally. HEART: Regular rate and rhythm. S1 and S2 heard. ABDOMEN: Soft. Nondistended. Nontender. EXTREMITIES: Normal range of motion. No clubbing or cyanosis. Peripheral pulses intact. No lower extremity edema NEUROLOGIC: Awake and alert. Oriented x 3. ASSESSMENT: Chest pain, troponin negative x 3 Hypertension Hyperlipidemia with previous statin intolerance Diabetes Obesity: BMI 34.6 PLAN: Continue current cardiac medications Patient is stable for discharge home today from a cardiac standpoint Patient to follow-up postdischarge with Dr. Del Toro Nurse practitioner note has been reviewed by physician. Signing provider agrees with the documented findings, assessment, and plan of care documented by CT TECHNOLOGIST as a scribe. Objective - Vital Signs Vital signs: Vital Signs Temp 98.4 F 11/19/24 07:00 Pulse 90 11/19/24 09:29 Resp 16 11/19/24 07:00 BP 139/90 11/19/24 07:00 Pulse Ox 95 11/19/24 07:00 FiO2 Intake & Output 11/18/24 11/19/24 11/19/24 18:59 06:59 18:59 Intake Total 591 Balance 591 Intake: Oral 591 Other: # Voids 2 # Bowel Movements 1 - Labs CBC & Chem 7: 11/17/24 23:49 11/17/24 23:49 Labs: Abnormal Lab Results - Last 24 Hours (Table) 11/19/24 11/19/24 Range/Units 04:52 05:48 POC Glucose (mg/dL) 302 H 282 H (70-110) mg/dL
[2024-11-19 11:57] LABS: Glucose,Whole Blood 190 mg/dL (70-110)
[2024-11-19] MEDS: methylPREDNISolone SOD SUCCI 125 MG/2 ML VIAL IV STA (12:21)
[2024-11-19] MEDS: predniSONE 20 MG TAB PO SCH (15:01)
[2024-11-19 15:24] VITALS: BP 136/78; PULSE 104; TEMP 98.5
[2024-11-23 07:42] LABS: Glucose,Whole Blood 234 mg/dL (70-110)
--- NOTE | 2024-11-23 16:00 | P.DS ---
Providers Date of admission: 11/18/24 02:16 Expected date of discharge: 11/19/24 Attending physician: Duong Bales Primary care physician: Marco Zamora Hospital Course: Final diagnosis Acute on chronic hypoxic respiratory failure Acute COPD exacerbation Chronic hypoxemic respiratory failure on 3 L of oxygen Chest pain, ruled out ACS per cardiology Hypertension Hyperlipidemia Type 2 diabetes mellitus, uncontrolled with hyperglycemia Obstructive sleep apnea Morbid obesity Multiple joint osteoarthritis GI prophylaxis DVT prophylaxis Full code Discharge disposition Patient is being discharged in a stable condition with guarded prognosis to home. Patient will follow-up with Dr. Zamora in the outpatient setting upon discharge. Patient is to continue with current medications along with a prednisone taper and outpatient follow-up with pulmonary and cardiology as scheduled. Total time taken is greater than 35 minutes. Hospital course This is a 64-year-old male who was recently admitted with chest pain along with COPD, acute exacerbation being closely monitored. 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 Adjustments to medications had and patient was also started on some steroids and DuoNeb treatments. COPD mild reactive and recommend outpatient follow-up with pulmonary Dr. Restrepo. Will continue DuoNeb treatments along with a prednisone taper and also instructed patient to follow- up with primary care provider on discharge. Please refer to other consultation note for further HPI. Patient reports to feeling improved and will be discharged home today. Currently no reports of chest pain, shortness of breath, or palpitations. Patient is afebrile. No reports of nausea or vomiting and patient is tolerating diet. Patient will be discharged home today. High risk for readmissions given significant comorbidities Physical exam: Gen: This is a 64-year-old male who is awake, alert and oriented x 3, well- developed, obese, appears older than stated age HEENT: Head is atraumatic, normocephalic. Pupils equal, round. Sclerae is anicteric. NECK: Supple. No JVD. No lymphadenopathy. No thyromegaly. LUNGS: Diminished breath sounds bilaterally with some scattered expiratory wheezes and coarse rhonchi. No intercostal retractions. HEART: Regular rate and rhythm. No murmur. ABDOMEN: Soft. Obese bowel sounds are present. No masses. No tenderness. EXTREMITIES: No pedal edema. No calf tenderness. NEUROLOGICAL: Patient is awake, alert and oriented x3. Cranial nerves 2 through 12 are grossly intact. Please refer to medication reconciliation sheet for a list of medications. The impression and plan of care has been dictated by Ruthie Victoria, Nurse Practitioner as directed. Dr. Gloria MD I have performed a history and examination and MDM of this patient, discussed the same with the dictator, and agree with the dictator's assessment and plan as written ,documented as a scribe. Based on total visit time, I have performed more than 50% of the visit. Patient Condition at Discharge: Fair Plan - Discharge Summary New Discharge Prescriptions: New Ipratropium-Albuterol Nebulize [Duoneb 0.5 mg-3 mg/3 ml Soln] 3 ml INHALATION RT-QID #100 each predniSONE See Taper PO DIRECTED #30 tab Aspirin 81 mg PO DAILY #30 tab Ipratropium-Albuterol Nebulize [Duoneb 0.5 mg-3 mg/3 ml Soln] 3 ml INHALATION RT-Q2H PRN each PRN Reason: Shortness Of Breath Or Wheezing Pravastatin Sodium [Pravachol] 40 mg PO HS #30 tab Acetaminophen Tab [Tylenol] 325 mg PO Q6HR PRN tab PRN Reason: Fever and/ or Mild Pain Continue Montelukast Sodium [Singulair] 10 mg PO DAILY Albuterol Inhaler [Ventolin Hfa Inhaler] 2 puff INHALATION RT-Q4H PRN PRN Reason: Shortness Of Breath [place]-3 Fish Oil (Unknown Strength) 1 dose PO DAILY Cetirizine HCl/Pseudoephedrine [Zyrtec-D ER 5 mg-120 mg Tablet] 1 tab PO Q12H PRN PRN Reason: Allergy Symptoms lisinopriL [Zestril] 20 mg PO DAILY Magnesium (Unknown Strength) 1 dose PO DAILY Vitamin C (Unknown Strength) 1 dose PO DAILY Vitamin D3 (Unknown Strength) 1 dose PO DAILY Zinc (Unknown Strength) 1 dose PO DAILY Fluticasone Propionate 220 Mcg [Flovent 220 Mcg Inhaler] 2 puff INHALATION RT-BID Discontinued Ipratropium-Albuterol Nebulize [Duoneb 0.5 mg-3 mg/3 ml Soln] 3 ml INHALATION RT-QID Discharge Medication List Montelukast Sodium [Singulair] 10 mg PO DAILY 05/18/18 [History] Albuterol Inhaler [Ventolin Hfa Inhaler] 2 puff INHALATION RT-Q4H PRN 02/05/22 [History] Magnesium (Unknown Strength) 1 dose PO DAILY 05/28/24 [History] [place]-3 Fish Oil (Unknown Strength) 1 dose PO DAILY 05/28/24 [History] Vitamin C (Unknown Strength) 1 dose PO DAILY 05/28/24 [History] Vitamin D3 (Unknown Strength) 1 dose PO DAILY 05/28/24 [History] Zinc (Unknown Strength) 1 dose PO DAILY 05/28/24 [History] lisinopriL [Zestril] 20 mg PO DAILY 05/28/24 [History] Cetirizine HCl/Pseudoephedrine [Zyrtec-D ER 5 mg-120 mg Tablet] 1 tab PO Q12H PRN 11/18/24 [History] Fluticasone Propionate 220 Mcg [Flovent 220 Mcg Inhaler] 2 puff INHALATION RT- BID 11/18/24 [History] Acetaminophen Tab [Tylenol] 325 mg PO Q6HR PRN tab 11/19/24 [Rx] Aspirin 81 mg PO DAILY #30 tab 11/19/24 [Rx] Ipratropium-Albuterol Nebulize [Duoneb 0.5 mg-3 mg/3 ml Soln] 3 ml INHALATION RT-Q2H PRN each 11/19/24 [Rx] Ipratropium-Albuterol Nebulize [Duoneb 0.5 mg-3 mg/3 ml Soln] 3 ml INHALATION RT-QID #100 each 11/19/24 [Rx] Pravastatin Sodium [Pravachol] 40 mg PO HS #30 tab 11/19/24 [Rx] predniSONE See Taper PO DIRECTED #30 tab 11/19/24 [Rx] Follow up Appointment(s)/Referral(s): Marco Zamora [Primary Care Provider] - 1-2 days Glynn Restrepo [STAFF PHYSICIAN] - 1 Week Activity/Diet/Wound Care/Special Instructions: Activity limited until follow-up Follow-up with primary care provider on discharge Follow-up with cardiology outpatient Follow-up with your stock supervisor outpatient Continue prednisone taper Continue with DuoNeb treatments 4 times daily as well as inhalers Discharge Disposition: HOME SELF-CARE
== END 2024-11-19 15:31 | disposition home or self-care (01) ==
LOC: EC 23:08 → 6NMEDSUR 11-18 02:16
PROVIDERS: ADMIT Hospitalist; ATTEND Hospitalist
DX: J44.1 Chronic obstructive pulmonary disease with (acute) exacerbation (principal); J45.31 Mild persistent asthma with (acute) exacerbation; J96.21 Acute and chronic respiratory failure with hypoxia; G47.33 Obstructive sleep apnea (adult) (pediatric); E11.65 Type 2 diabetes mellitus with hyperglycemia; I10 Essential (primary) hypertension; E78.5 Hyperlipidemia, unspecified; Z99.81 Dependence on supplemental oxygen; M54.2 Cervicalgia; R22.40 Localized swelling, mass and lump, unspecified lower limb; R11.0 Nausea; M25.519 Pain in unspecified shoulder; E66.01 Morbid (severe) obesity due to excess calories; Z68.34 Body mass index [BMI] 34.0-34.9, adult; G25.81 Restless legs syndrome; M15.9 Polyosteoarthritis, unspecified; Z11.52 Encounter for screening for COVID-19; Z11.59 Encounter for screening for other viral diseases; Z79.51 Long term (current) use of inhaled steroids; Z79.52 Long term (current) use of systemic steroids; Z79.899 Other long term (current) drug therapy; Z88.8 Allergy status to other drugs, medicaments and biological substances; Z91.048 Other nonmedicinal substance allergy status; Z87.891 Personal history of nicotine dependence
CPT/HCPCS: 96376 ×2; 96361; 96374; 99285; 36415; 94640 ×4; 93005; 93306; 93351; 83880; 80053; 83735; 84484; 85025; 85610; 85730; 87636; 71046; G0378 ×2; Q9957; J7512; J2919 ×2